=== PATIENT | male | born 1940 | race Caucasian/White ===

== ENCOUNTER 2016-09-28 10:03 | Emergency (ER) | payer OTHER, BC ==
[~2016-09-28] VITALS: Ht 175.3 cm; Wt 94.0 kg
[~2016-09-28 10:03] MED LIST: ACTUNK; ASPCH81; AVDUNK; DVNUNK; GLCPUNK; LRT5 PO; OMEG10007 PO; TRCUNK; VYTUNK
[2016-09-28 10:11] VITALS: TEMP 36.3; Ht 175.3 cm; Wt 94.0 kg
[2016-09-28 10:53] LABS: URINE APPEARANCE CLEAR (CLEAR); URINE BILIRUBIN NEG (NEG); URINE COLOR YELLOW; URINE NITRITE NEG (NEG); UROBILINOGEN NEG (NEG)
[2016-09-28 10:55] LABS: MANUAL MICROSCOPIC REQUIRED? YES; REVIEW REQ? NO
[2016-09-28 11:07] LABS: URINE BACTERIA NEG (NEG)
[2016-09-28 11:31] LABS: BASO % 0.6 %; BASO ABS # 0.05 K/uL (0-0.2); COMPLETE YES; EOS % 0.7 %; HEMATOCRIT 36.5 % (42-52); IG% 0.2 %; LYMPH % 9.3 %; LYMPH ABS # 0.76 K/uL (1.2-3.4); MEAN CELL VOLUME 89.9 fL (80-100); MEAN CORPUSCULAR HEMOGLOBIN 28.6 pg (25-34); MEAN CORPUSCULAR HGB CONC 31.8 g/dl (32-36); MEAN PLATELET VOLUME 10.3 fL (7.4-10.4); MONO % 5.3 %; NEUT % 83.9 %; PLATELET COUNT 184 K/uL (130-400); RED BLOOD COUNT 4.06 M/uL (4.7-6.1); WHITE BLOOD COUNT 8.17 K/uL (4.8-10.8)
[2016-09-28] MEDS ORDERED: CRS/10 PO (11:48)
[2016-09-28] MEDS ORDERED: CHOL400T (11:48)
[2016-09-28] MEDS ORDERED: GLIM1TAB2 PO (11:48)
[2016-09-28] MEDS ORDERED: TAMS0.4C38 PO (11:48)
[2016-09-28] MEDS ORDERED: ASPI81TA28 PO (11:48)
[2016-09-28] MEDS ORDERED: SITA100T3 PO (11:48)
[2016-09-28] MEDS ORDERED: OMEGCAP2 PO (11:48)
[2016-09-28] MEDS ORDERED: METF-841 PO (11:48)
[2016-09-28 11:57] LABS: BUN/CREATININE RATIO 18.8 (10-20); CREATININE 1.5 mg/dl (0.60-1.40); POTASSIUM 5.8 mmol/L (3.5-5.1)
--- NOTE | 2016-09-28 12:19 | EMERGENCY ROOM VISIT NOTE ---
History Report prepared by Ann: Ren Hill Under the Supervision of: Dr. Gunnar Davis M.D. First contact with patient: 10:14 Chief Complaint: UNABLE TO VOID Stated Complaint: UNABLE TO VOID History of Present Illness The patient is a 76 year old male who presents to the Emergency Room with complaints of constant inability to urinate beginning this morning. He states that he suddenly developed increased urinary frequency and urgency last night. He estimates that he was urinating every 10 minutes or so. The patient states that he went to sleep, and has not been able to urinate since waking up. He also complains of abdominal pain and distension. He states that he was able to urinate a very small amount just prior to arrival, but feels that he cannot empty his bladder. The patient has a history of similar symptoms occurring 4 years ago with an uncertain cause. Nothing has improved his symptoms. He denies any back pain, nausea, vomiting, fever, weakness, numbness, chest pain, or SOB. The patient denies any falls or trauma. He is on aspirin but denies any other blood thinners. He is on Flomax. The patient denies taking any new medications recently. Source of History: patient Onset: this morning Quality: other (inability to urinate) Timing: constant Modifying Factors (Relieving): other (none) Associated Symptoms: + abdominal pain (and distension), No SOB, No chest pain, No chills, No fevers, No nausea, No numbness, No vomiting, No weakness Review of Systems See HPI for pertinent positives & negatives. A total of 10 systems reviewed and were otherwise negative. Past Medical & Surgical Medical Problems: (1) No Known Active Medical Problems Surgical Problems: (1) Previous back surgery Old medical records were reviewed. Nurse's notes were reviewed and I agree with. Family History No pertinent family history stated. Social History Drug Use: none Housing Status: lives with family Current/Historical Medications Scheduled Aspirin (Aspirin Ec), 81 MG PO DAILY Glimepiride (Glimepiride), 1 MG PO DAILY Metformin HCl (Metformin HCl ER), 1,000 MG PO HS [place]-3 Fatty Acids (Fish Oil), 1 CAP PO DAILY Rosuvastatin Calcium (Crestor), 10 MG PO HS Sitagliptin Phosphate (Januvia), 100 MG PO DAILY Tamsulosin Hcl (Flomax), 0.4 MG PO HS Miscellaneous Medications Cholecalciferol (Vitamin D) Allergies Coded Allergies: Atorvastatin (Verified Allergy, Unknown, SKIN REACTION, 09/28/16) Physical Exam Vital Signs Date Time Temp Pulse Resp B/P Pulse Ox O2 Delivery O2 Flow Rate FiO2 09/28/16 12:58 55 18 136/74 98 09/28/16 11:41 55 18 125/69 98 Room Air 09/28/16 10:11 36.3 65 16 180/78 96 Room Air Physical Exam General: Well developed, well nourished, non-ill appearing older male in no acute distress, breathing comfortably on room air. Normal speech HEENT: Normal cephalic atraumatic. Pupils are equal round and reactive to light. Extraocular movements are intact. Oropharynx is pink with moist mucous membranes. No swelling of the mouth lips or tongue. Neck: Supple with a midline trachea. No meningeal signs or stiffness, no JVD or bruits. No Stridor. Chest: Clear to auscultation bilaterally. No wheezes or rhonchi. No increased work of breathing. Heart: regular rate and rhythm. Abdomen: Soft nontender, nondistended without rebound guarding or rigidity. Extremities: No cyanosis clubbing or edema. No calf tenderness or assymetry Spine/Back. Non tender to palpation. No CVA tenderness Skin: Good turgor without rashes. Neurologic exam: Cranial nerves two through 12 are intact. Motor and sensation are intact and symmetrical throughout. Medical Decision & Procedures Laboratory Results 09/28/16 11:15 Red Blood Count 4.06, Mean Corpuscular Volume 89.9, Mean Corpuscular Hemoglobin 28.6, Mean Corpuscular Hemoglobin Concent 31.8, Mean Platelet Volume 10.3, Neutrophils (%) (Auto) 83.9, Lymphocytes (%) (Auto) 9.3, Monocytes (%) (Auto) 5.3, Eosinophils (%) (Auto) 0.7, Basophils (%) (Auto) 0.6, Neutrophils # (Auto) 6.85, Lymphocytes # (Auto) 0.76, Monocytes # (Auto) 0.43, Eosinophils # (Auto) 0.06, Basophils # (Auto) 0.05 09/28/16 11:15 Test 09/28/16 10:31 09/28/16 11:15 Urine Color YELLOW Urine Appearance CLEAR (CLEAR) Urine pH 5.0 (4.5-7.5) Urine Specific [place] 1.020 (1.000-1.030) Urine Protein TRACE (NEG) Urine Glucose (UA) 1+ (NEG) Urine Ketones NEG (NEG) Urine Occult Blood 2+ (NEG) Urine Nitrite NEG (NEG) Urine Bilirubin NEG (NEG) Urine Urobilinogen NEG (NEG) Urine Leukocyte Esterase NEG (NEG) Urine RBC 5-10 /hpf (0-4) Urine WBC 1-5 /hpf (0-5) Urine Epithelial Cells 0-5 /lpf (0-5) Urine Bacteria NEG (NEG) White Blood Count 8.17 K/uL (4.8-10.8) Red Blood Count 4.06 M/uL (4.7-6.1) Hemoglobin 11.6 g/dL (14.0-18.0) Hematocrit 36.5 % (42-52) Mean Corpuscular Volume 89.9 fL (80-100) Mean Corpuscular Hemoglobin 28.6 pg (25-34) Mean Corpuscular Hemoglobin Concent 31.8 g/dl (32-36) Platelet Count 184 K/uL (130-400) Mean Platelet Volume 10.3 fL (7.4-10.4) Neutrophils (%) (Auto) 83.9 % Lymphocytes (%) (Auto) 9.3 % Monocytes (%) (Auto) 5.3 % Eosinophils (%) (Auto) 0.7 % Basophils (%) (Auto) 0.6 % Neutrophils # (Auto) 6.85 K/uL (1.4-6.5) Lymphocytes # (Auto) 0.76 K/uL (1.2-3.4) Monocytes # (Auto) 0.43 K/uL (0.11-0.59) Eosinophils # (Auto) 0.06 K/uL (0-0.5) Basophils # (Auto) 0.05 K/uL (0-0.2) RDW Standard Deviation 46.2 fL (36.4-46.3) RDW Coefficient of Variation 13.9 % (11.5-14.5) Immature Granulocyte % (Auto) 0.2 % Immature Granulocyte # (Auto) 0.02 K/uL (0.00-0.02) Anion Gap 7.0 mmol/L (3-11) Est Creatinine Clear Calc Drug Dose 47.4 ml/min Estimated GFR () 51.7 Estimated GFR (Non- 44.6 BUN/Creatinine Ratio 18.8 (10-20) Calcium Level 9.0 mg/dl (8.5-10.1) Laboratory studies as stated above per my review. ED Course 1018: Past medical records reviewed. The patient was evaluated in room B8, and a complete history and physical examination were performed. He had a Marks catheter placed at this time. 1030: The patient has begun feeling significant relief. 1210: Upon reevaluation, the patient is resting comfortably. I discussed the results and treatment plan with her. She verbalized agreement of the treatment plan. The patient was discharged home. Medical Decision Differentials include, but are not limited to; urinary retention, UTI, infection , cauda equina syndrome, and electrolyte or metabolic abnormality. This patient comes in as described above he's urinary retention. A bladder scan showed severe amount of urine. A Marks catheter was placed and he had over 1 liter of urine. He feels much better. He has some baseline renal insufficiency and his potassium is also mildly elevated although that's baseline. He looks well. He has no back pain or numbness or weakness or any evidence to suggest that equina syndrome. He has had this before. He was feeling better. He has nothing to suggest a UTI at this point. I will have him leave the catheter with leg bag. He is going to follow up with his doctor tomorrow afternoon and they can try to remove the Marks catheter and ensure that he urinates afterwards. He was encouraged to return if: Fever or chills, worsening of symptoms, any new problems or concerns. Impression Primary Impression: Urinary retention Scribe Attestation The scribe's documentation has been prepared under my direction and personally reviewed by me in its entirety. I confirm that the note above accurately reflects all work, treatment, procedures, and medical decision making performed by me. Departure Information Dispostion Home / Self-Care Referrals Lavinia Mcclure (PCP) Forms HOME CARE DOCUMENTATION FORM, IMPORTANT VISIT INFORMATION, WORK / SCHOOL INSTRUCTIONS Patient Instructions My [facility] Additional Instructions Rest. Drink plenty of fluids. Follow-up with your doctor (primary doctor or urologist) late tomorrow or early for catheter removal. Ensure that you can urinate afterwards before you go out of town Return to the ER if: Problems with a Marks catheter, bleeding, fever or chills, any new problems or concerns.
[2016-09-28 12:58] VITALS: BP 136/74; PULSE 55; O2SAT 98
== END 2016-09-28 12:59 | disposition home or self-care (01) ==
LOC: C.EDB 10:04
DX: R33.9 Retention of urine, unspecified (principal); Z79.82 Long term (current) use of aspirin

== ENCOUNTER → 2017-04-25 | Outpatient (CLI) | payer OTHER, BC ==
[~2017-04-25] MED LIST changes: -ACTUNK; -ASPCH81; +ASPI81TA28 PO; -AVDUNK; +CHOL400T; +CRS/10 PO; -DVNUNK; -GLCPUNK; +GLIM1TAB2 PO; -LRT5 PO; +METF-841 PO; -OMEG10007 PO; +OMEGCAP2 PO; +SITA100T3 PO; +TAMS0.4C38 PO; -TRCUNK; -VYTUNK
--- NOTE | 2017-04-25 12:33 | DIAGNOSTIC IMAGING REPORT ---
CHEST 2 VIEWS ROUTINE CLINICAL HISTORY: COUGH, SOB, EDEMA dyspnea COMPARISON STUDY: 02/18/2010 FINDINGS: Moderate cardiomegaly. Diaphragms are smooth. Lungs are clear. Multiple old rib fractures bilaterally. IMPRESSION: Moderate cardiomegaly. Otherwise negative study. The above report was generated using voice recognition software. It may contain grammatical, syntax or spelling errors. Electronically signed by: Fredo Tay M.D. 04/25/2017 12:32 PM Dictated Date/Time: 04/25/2017 12:29 PM
== END | disposition home or self-care (01) ==
LOC: C.RAD1850 12:20
PROVIDERS: ATTEND Nurse Practitioner Family
DX: R06.02 Shortness of breath (principal); R05 Cough; E11.9 Type 2 diabetes mellitus without complications; R60.9 Edema, unspecified; I51.7 Cardiomegaly

== ENCOUNTER → 2017-06-17 | Outpatient (CLI) | payer OTHER, BC ==
[~2017-06-17] MED LIST changes: +METF750T PO; +OPTIRAY 320 IV PRN
[2017-06-17 11:33] LABS: BLOOD UREA NITROGEN 15 mg/dl (7-18); CALCIUM 9.5 mg/dl (8.5-10.1); CARBON DIOXIDE 27 mmol/L (21-32); CREATININE 1.27 mg/dl (0.60-1.40); GLUCOSE 167 mg/dl (70-99); POTASSIUM 3.4 mmol/L (3.5-5.1); SODIUM 138 mmol/L (136-145)
[2017-06-17 12:30] LABS: BASO % 0.5 %; BASO ABS # 0.03 K/uL (0-0.2); EOS % 1.4 %; EOS ABS # 0.09 K/uL (0-0.5); HEMOGLOBIN 11.2 g/dL (14.0-18.0); IG# 0.01 K/uL (0.00-0.02); LYMPH % 18.5 %; LYMPH ABS # 1.22 K/uL (1.2-3.4); MEAN CELL VOLUME 86.6 fL (80-100); MEAN CORPUSCULAR HEMOGLOBIN 27.7 pg (25-34); MEAN PLATELET VOLUME 9.6 fL (7.4-10.4); MONO ABS # 0.46 K/uL (0.11-0.59); NEUT % 72.4 %; PLATELET COUNT 324 K/uL (130-400); RED CELL DISTRIBUTION WIDTH CV 14.6 % (11.5-14.5); WHITE BLOOD COUNT 6.61 K/uL (4.8-10.8)
--- NOTE | 2017-06-17 13:33 | DIAGNOSTIC IMAGING REPORT ---
ABD/PELVIS IV AND ORAL CONT CT DOSE: HISTORY: Mass RECTAL MASS,PT COMING FROM PROCEDURE [place] [facility] TECHNIQUE: Multiaxial CT images of the abdomen and pelvis were performed following the use of intravenous and oral contrast. A dose lowering technique was utilized adhering to the principles of ALARA. COMPARISON STUDY: None. FINDINGS: Lung bases are clear. Small hiatal hernia. Liver spleen and pancreas enhance uniformly. No evidence for gallbladder distention. Mild cortical scarring of the kidneys bilaterally. Several renal peripelvic cysts. No evidence for hydronephrosis. The adrenal glands are normal. Nonobstructive bowel pattern. Chronic proximal to mid sigmoid diverticulosis. No evidence for acute diverticulitis. The prostate is enlarged. There appears to be a low right central rectal mass measuring 3.7 x 2.1 cm. No evidence for extrinsic invasion. Several small perirectal nodes none of which exceed 4 mm maximum dimension. No significant inguinal adenopathy. The osseous structures show moderate degenerative change with no evidence for a lytic or blastic process. IMPRESSION: 1. Right central rectal mass measuring 2.7 x 2.1 cm maximum dimension. 2. No evidence for extraluminal extension. 3. No evidence for metastatic disease based on this exam. 4. Incidental findings as noted. The above report was generated using voice recognition software. It may contain grammatical, syntax or spelling errors. Electronically signed by: Fredo Tay M.D. 06/17/2017 1:32 PM Dictated Date/Time: 06/17/2017 1:26 PM
--- NOTE | 2017-06-17 13:37 | DIAGNOSTIC IMAGING REPORT ---
CHEST CT WITH CONTRAST CT DOSE: 1175.44 mGy.cm HISTORY: Reported rectal mass. RECTAL MASS TECHNIQUE: Multiaxial CT images of the chest were performed following the intravenous administration of contrast. 94 ml Optiray 320 administered. A dose lowering technique was utilized adhering to the principles of ALARA. COMPARISON: CT abdomen and pelvis of same day. FINDINGS: Exophytic portion of the inferior left thyroid versus thyroid nodule measures 12 mm as seen on image 78 series 6. No definite pathologically enlarged lymph nodes of the chest identified. Mild to moderate sized pericardial effusion measures 1.8 cm posteriorly adjacent to the left ventricle. Coronary arterial disease. Mild to moderate multichamber cardiac enlargement. Thoracic aorta is normal in both course and caliber without aneurysm or dissection. The pulmonary arterial tree is not well opacified, however appears unremarkable. There is no pneumothorax, pleural effusion, focal airspace consolidation or overt pulmonary edema. Mild subsegmental dependent bibasilar groundglass opacities suggest atelectasis. No suspicious pulmonary nodules or masses identified to suggest metastasis. The central airways appear patent. Mild gaseous distention of the upper and mid portions of the thoracic esophagus. Small sliding-type hiatal hernia. No acute abnormality of the imaged upper abdomen. Soft tissues are unremarkable. The bones appear mildly demineralized. Degenerative changes are seen within the shoulders and spine. No suspicious lytic or blastic bony lesions identified. Remote left-sided rib fractures. IMPRESSION: 1. No acute intrathoracic abnormality identified. No evidence of thoracic metastatic disease. 2. No pathologically enlarged lymph nodes or suspicious pulmonary nodules identified. 3. Cardiomegaly with mild to moderate sized pericardial effusion. 4. Small sliding type hiatal hernia. Electronically signed by: Tarik Becerra M.D. 06/17/2017 1:36 PM Dictated Date/Time: 06/17/2017 1:29 PM
== END | disposition home or self-care (01) ==
LOC: C.CTS 10:15
PROVIDERS: ATTEND Internal Medicine Gastroenterology
DX: K62.89 Other specified diseases of anus and rectum (principal); I51.7 Cardiomegaly; I31.3 Pericardial effusion (noninflammatory); K44.9 Diaphragmatic hernia without obstruction or gangrene

== ENCOUNTER 2017-06-21 09:50 | Emergency (ER) | payer OTHER, BC ==
[~2017-06-21] VITALS: Ht 175.3 cm; Wt 98.9 kg
[~2017-06-21 09:50] MED LIST changes: -METF750T PO; -OPTIRAY 320 IV PRN
[2017-06-21 09:55] VITALS: TEMP 36.4; Ht 175.3 cm; Wt 98.9 kg
[2017-06-21] MEDS ORDERED: METF750T PO (10:52)
--- NOTE | 2017-06-21 11:41 | EMERGENCY ROOM VISIT NOTE ---
History Report prepared by Ann: Ren Hill Under the Supervision of: Dr. Gunnar Davis M.D. First contact with patient: 10:00 Chief Complaint: UNABLE TO VOID Stated Complaint: BLADDER BLOCKAGE History of Present Illness The patient is a 77 year old male who presents to the Emergency Room with complaints of constant inability to urine beginning seven hours ago. He has a history of urinary retention thought to be related to prostate problems. His symptoms were previously improved with placement of a Marks catheter. The patient currently complains of abdominal pain. He has a colonoscopy last week and was found to have multiple tumors. He is scheduled to see colorectal surgery later today. The patient denies back pain, numbness, weakness, chills, or fever. He notes that he has had increased fatigue for the past several months. Source of History: patient Onset: Seven hours ago Quality: other (inability to urinate) Timing: constant Modifying Factors (Relieving): other (Placement of Marks catheter) Associated Symptoms: + abdominal pain, + fatigue, No fevers, No chills, No back pain, No weakness, No numbness Review of Systems See HPI for pertinent positives & negatives. A total of 10 systems reviewed and were otherwise negative. Past Medical & Surgical Medical Problems: (1) No Known Active Medical Problems Surgical Problems: (1) Previous back surgery Old medical records were reviewed. Nurse's notes were reviewed and I agree with. Family History No pertinent family history stated. Social History Smoking Status: Never Smoker Drug Use: none Housing Status: lives with family Current/Historical Medications Scheduled Glimepiride (Glimepiride), 1 MG PO DAILY Metformin Hcl (Glucophage Er), 750 MG PO HS Rosuvastatin Calcium (Crestor), 10 MG PO HS Tamsulosin Hcl (Flomax), 0.4 MG PO HS Miscellaneous Medications Cholecalciferol (Vitamin D) Allergies Coded Allergies: Atorvastatin (Verified Allergy, Unknown, SKIN REACTION, 06/21/17) Physical Exam Vital Signs Date Time Temp Pulse Resp B/P (MAP) Pulse Ox O2 Delivery O2 Flow Rate FiO2 06/21/17 12:50 67 16 162/82 97 Room Air 06/21/17 11:55 65 23 166/92 100 Room Air 06/21/17 09:55 36.4 82 20 99 Room Air Physical Exam General: Uncomfortable appearing older male in no acute distress. Complaining of inability to void. HEENT: Normal cephalic atraumatic. Pupils are equal round and reactive to light. Extraocular movements are intact. Oropharynx is pink with moist mucous membranes. No swelling of the mouth lips or tongue. Neck: Supple with a midline trachea. No meningeal signs or stiffness, no JVD or bruits. No Stridor. Chest: Clear to auscultation bilaterally. No wheezes or rhonchi. No increased work of breathing. Heart: regular rate and rhythm. Abdomen: Soft nontender, nondistended without rebound guarding or rigidity. Extremities: No cyanosis clubbing or edema. No calf tenderness or assymetry. Spine/Back. Non tender to palpation. No CVA tenderness Skin: Good turgor without rashes. Neurologic exam: Cranial nerves two through 12 are intact. Motor and sensation are intact and symmetrical throughout. Normal motor and sensation of legs. No numbness of the buttocks or legs. Medical Decision & Procedures Laboratory Results Test 06/21/17 10:30 Urine Color YELLOW Urine Appearance CLEAR (CLEAR) Urine pH 5.0 (4.5-7.5) Urine Specific [place] 1.016 (1.000-1.030) Urine Protein 3+ (NEG) Urine Glucose (UA) 1+ (NEG) Urine Ketones NEG (NEG) Urine Occult Blood 1+ (NEG) Urine Nitrite NEG (NEG) Urine Bilirubin NEG (NEG) Urine Urobilinogen NEG (NEG) Urine Leukocyte Esterase NEG (NEG) Urine WBC (Auto) 1-5 /hpf (0-5) Urine RBC (Auto) 0-4 /hpf (0-4) Urine Hyaline Casts (Auto) 1-5 /lpf (0-5) Urine Epithelial Cells (Auto) 20-30 /lpf (0-5) Urine Bacteria (Auto) NEG (NEG) Laboratory studies as stated above per my review. ED Course 1012: Past medical records reviewed. The patient was evaluated in room A2, and a complete history and physical examination were performed. 1050: The patient drained over 1000 cc of urine. He would like to have his enema here, and then be sent to his colorectal appointment today. 1235: Upon reevaluation, the patient is resting comfortably. His enema was successful. I discussed the results and treatment plan with him. He verbalized agreement of the treatment plan. He will wait for his ride in the next hour. The patient was discharged home. Medical Decision Differentials include, but are not limited to; urinary retention, infection, and cauda equina. This patient comes in as described above. He was placed in room A2. He's had difficulty urinating. This occurred since last night. He was seen back in September for similar symptom. He has no neurologic deficits on exam and nothing to suggest cauda equina syndrome. He's had no recent illness or fever or chills. A Marks catheter was placed and he had about 1400 mL and felt better. His urinalysis does not suggest a UTI with a culture pending. He has a recently discovered rectal mass and is scheduled to see a [facility] colorectal surgeon locally this afternoon. He does not want to miss the appointment. He was supposed to do enemas prior to that so they could look. He did enemas while he was in the ER and is feeling better and we did convert it into a leg bag. He is to follow-up with his regular doctor next 1-2 days for catheter removal and was given a follow-up with his colorectal surgeon after being discharged from the ER. He should return if: fever or chills, numbness or weakness, worsening of symptoms, any new problems concerns. He is happy the plan and discharged to home. Impression Primary Impression: Urinary retention Scribe Attestation The scribe's documentation has been prepared under my direction and personally reviewed by me in its entirety. I confirm that the note above accurately reflects all work, treatment, procedures, and medical decision making performed by me. Departure Information Dispostion Home / Self-Care Referrals Lavinia Mcclure (PCP) Forms HOME CARE DOCUMENTATION FORM, IMPORTANT VISIT INFORMATION, WORK / SCHOOL INSTRUCTIONS Patient Instructions My [facility] Additional Instructions Rest. Keep your follow-up today with your surgeon Follow-up with your doctor in 1-2 days for catheter removal Return to the ER if: Worsening symptoms, numbness or weakness, fever or chills, any new problems or concerns
[2017-06-21 12:50] VITALS: BP 162/82; PULSE 67; O2SAT 97
== END 2017-06-21 13:20 | disposition home or self-care (01) ==
LOC: C.EDB 09:52 → C.EDA 13:20
DX: R33.9 Retention of urine, unspecified (principal); R10.9 Unspecified abdominal pain; K62.89 Other specified diseases of anus and rectum; R53.83 Other fatigue; Z79.84 Long term (current) use of oral hypoglycemic drugs

== ENCOUNTER → 2017-06-23 | Outpatient (CLI) | payer OTHER, BC ==
[~2017-06-23] MED LIST changes: -ASPI81TA28 PO; +GADAVIST IV PRN; -METF-841 PO; +METF750T PO; -OMEGCAP2 PO; -SITA100T3 PO
--- NOTE | 2017-06-23 11:19 | DIAGNOSTIC IMAGING REPORT ---
MRI OF THE PELVIS COMBO CLINICAL HISTORY: Rectal cancer. COMPARISON STUDY: Abdominal CT dated 06/17/2017. TECHNIQUE: MRI of the pelvis is performed utilizing various T1 and T2 weighted sequences in the axial, sagittal, and coronal planes. Contrast-enhanced sequences are acquired following the IV administration of 9.2 cc of Gadavist. The examination is degraded by large body habitus and motion artifact. FINDINGS: There is a lobulated mass lesion again seen in the inferior rectum. This is located along the posterior wall of the rectum and is slightly eccentric to the right. This measures 4.0 x 1.7 x 4.3 cm in maximum dimension. There is no evidence of extension beyond the rectal mucosa. There is no associated obstruction. An 8 mm lymph node is seen in the left presacral space on image #9. A 10 mm high right perirectal lymph node is seen on image #4. Diverticula are noted involving the sigmoid colon. There is no MRI evidence of acute diverticulitis. The prostate gland is markedly enlarged and heterogeneous with evidence of median lobe hypertrophy. The bladder wall is thickened and trabeculated consistent with chronic outlet obstruction. The seminal vesicles are normal as imaged. No pelvic sidewall or inguinal lymphadenopathy is seen. There is metallic susceptibility artifact seen involving the sigmoid colon in the left ventral pelvis, likely related to an intraluminal foreign body. There is a fat-containing left inguinal hernia. The regional bony structures demonstrate normal marrow signal intensity. There is mild generalized atrophy of the regional musculature. Inflammatory change with small pockets of subcutaneous fluid are identified in inferior right buttock. This is best seen on axial postcontrast image #32 of 34. IMPRESSION: 1. There is a 4.3 cm lobulated rectal mass lesion as described above. 2. There is no evidence of perirectal extension. 3. There are mildly enlarged and pathologically indeterminant left presacral and right perirectal lymph nodes as above. 4. Prostatomegaly with evidence of chronic bladder outlet obstruction. 5. Inflammatory process with small pockets of subcutaneous fluid is seen within the inferior aspect of the medial right buttock. Correlate clinically for evidence of cellulitis/small abscess. 6. A metallic foreign body is noted in the sigmoid colon. 7. Sigmoid diverticulosis. Dictated: 06/23/2017 10:36 AM Transcribed: 06/23/2017 11:18 AM [facility] Electronically signed by: Richard Fields M.D. 06/23/2017 11:25 AM Dictated Date/Time: 06/23/2017 10:36 AM
== END | disposition home or self-care (01) ==
LOC: C.MRIBC 09:07
PROVIDERS: ATTEND Colon & Rectal Surgery
DX: K62.89 Other specified diseases of anus and rectum (principal); N40.1 Benign prostatic hyperplasia with lower urinary tract symptoms; L98.8 Other specified disorders of the skin and subcutaneous tissue; T18.4XXA Foreign body in colon, initial encounter; X58.XXXA Exposure to other specified factors, initial encounter; K57.30 Diverticulosis of large intestine without perforation or abscess without bleeding; C20 Malignant neoplasm of rectum

== ENCOUNTER 2017-08-18 10:12 | Inpatient (IN) | payer OTHER, BC ==
[~2017-08-18] VITALS: Ht 175.3 cm; Wt 95.0 kg
[~2017-08-18 10:12] MED LIST changes: +CHOL1000 PO; -CHOL400T; +CYAN10005 PO; +DILT-113 PO; -GADAVIST IV PRN; +IRON1CAP2 PO; +XLD/500 PO; +[UNRECOGNIZED DRUG - MIXTURE] PO
[2017-08-18] MEDS ORDERED: SODIUM CHLORIDE 0.9% 500ML 500 ML IV STA (10:29)
[2017-08-18 11:05] LABS: EOS % 0.5 %; EOS ABS # 0.02 K/uL (0-0.5); HEMATOCRIT 30.1 % (42-52); HEMOGLOBIN 9.8 g/dL (14.0-18.0); IG# 0.01 K/uL (0.00-0.02); LYMPH % 5.2 %; LYMPH ABS # 0.23 K/uL (1.2-3.4); MEAN CORPUSCULAR HEMOGLOBIN 28.3 pg (25-34); MEAN CORPUSCULAR HGB CONC 32.6 g/dl (32-36); MEAN PLATELET VOLUME 8.6 fL (7.4-10.4); MONO % 12.9 %; MONO ABS # 0.57 K/uL (0.11-0.59); NEUT % 81.2 %; PLATELET COUNT 186 K/uL (130-400); RED CELL DISTRIBUTION WIDTH CV 19.2 % (11.5-14.5); RED CELL DISTRIBUTION WIDTH SD 52.9 fL (36.4-46.3); WHITE BLOOD COUNT 4.43 K/uL (4.8-10.8)
[2017-08-18 11:06] LABS: INR 1.1 (0.9-1.1); PTT PATIENT 24.6 SECONDS (21.0-31.0)
[2017-08-18 11:18] LABS: ALBUMIN 2.9 gm/dl (3.4-5.0); CALCIUM 8.4 mg/dl (8.5-10.1); CREATININE 1.54 mg/dl (0.60-1.40); POTASSIUM 3.8 mmol/L (3.5-5.1)
[2017-08-18 11:20] LABS: TOTAL PROTEIN 6.5 gm/dl (6.4-8.2)
--- NOTE | 2017-08-18 11:52 | DIAGNOSTIC IMAGING REPORT ---
CT SCAN OF THE BRAIN WITHOUT IV CONTRAST CLINICAL HISTORY: Fall. COMPARISON STUDY: No priors. TECHNIQUE: Unenhanced axial CT scan of the brain is performed from the vertex to the skull base. A dose lowering technique was utilized adhering to the principles of ALARA. CT DOSE: 729.78 mGycm FINDINGS: Brain parenchyma: There are age-related involutional changes noting mild subcortical and periventricular microangiopathic change. There is no hemorrhage, mass effect, or evidence of acute territorial ischemia by CT criteria. Marsh-white matter is preserved. No extra-axial fluid collection is seen. Ventricles, sulci, cisterns: Prominent secondary to involutional change. Intracranial vasculature: There is atherosclerotic calcification of the cavernous carotid and vertebral arteries. Calvarium: The skeletal structures are osteopenic. No depressed calvarial fracture is seen. Sinuses and mastoids: Mild mucosal thickening is seen in the maxillary antra. Trace mucosal thickening is noted in the ethmoid sinuses. The remaining visualized paranasal sinuses are clear. The mastoid air cells are well pneumatized. Orbits: The bony orbits are grossly intact. There are bilateral ocular lens implants. IMPRESSION: There is no hemorrhage, mass effect, or evidence of acute territorial ischemia by CT criteria. Electronically signed by: Richard Fields M.D. 08/18/2017 11:51 AM Dictated Date/Time: 08/18/2017 11:49 AM
--- NOTE | 2017-08-18 11:58 | DIAGNOSTIC IMAGING REPORT ---
CT OF THE CERVICAL SPINE CLINICAL HISTORY: Neck pain status post trauma COMPARISON STUDY: No previous studies for comparison. CT DOSE: 466.95 mGycm TECHNIQUE: CT scan of the cervical spine was performed from the skull base to the thoracic inlet. Images are reviewed in the axial, sagittal, and coronal planes. IV contrast was not administered for this examination. A dose lowering technique was utilized adhering to the principles of ALARA. FINDINGS: The visualized portions of the lung apices reveal no evidence of pneumothorax. There is a nondisplaced fracture of the left anterior C1 arch. No additional fractures are visualized. There are no traumatic subluxations. 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 There are multilevel degenerative changes present.. IMPRESSION: Acute nondisplaced fracture of the left anterior C1 arch. Electronically signed by: Francisco Schulz M.D. 08/18/2017 11:57 AM Dictated Date/Time: 08/18/2017 11:49 AM
--- NOTE | 2017-08-18 11:59 | DIAGNOSTIC IMAGING REPORT ---
CT SCAN OF THE FACIAL BONES WITHOUT IV CONTRAST CLINICAL HISTORY: Fall. COMPARISON STUDY: CT of the brain performed concurrently on 08/18/2017. TECHNIQUE: High-resolution CT scan of the facial bones is performed. Images are reviewed in the axial, sagittal, and coronal planes. IV contrast was not administered for this examination. A dose lowering technique was utilized adhering to the principles of ALARA. CT DOSE: 608.20 mGycm FINDINGS: The skeletal structures are osteopenic. There are minimally distracted fractures involving the tips of the nasal bones with overlying soft tissue edema. The bony nasal septum appears intact noting rightward deviation. No additional facial bone fracture is seen. The bony orbits are intact and the orbital contents are within normal limits noting bilateral ocular lens implants. The zygomatic arches and pterygoid plates are preserved. The maxilla and mandible are intact. There are no layering blood products within the paranasal sinuses. Mild mucosal thickening is seen in the maxillary antra and trace mucosal thickening is seen in the ethmoid sinuses. The remaining paranasal sinuses and mastoid air cells are clear. The visualized calvarium appears intact. There is a nondistracted fracture involving the left anterior ring and lateral masses of C1, best seen on axial image #160. Partially imaged brain parenchyma is within normal limits noting age-related involutional change. IMPRESSION: 1. There is a nondistracted fracture involving the left anterior ring and lateral mass of C1. 2. There are fractures involving the tips of the nasal bones with overlying soft tissue edema. 3. No additional facial bone fracture is seen. The bony orbits are intact. Electronically signed by: Richard Fields M.D. 08/18/2017 11:58 AM Dictated Date/Time: 08/18/2017 11:51 AM
--- NOTE | 2017-08-18 12:24 | DIAGNOSTIC IMAGING REPORT ---
SINGLE VIEW CHEST CLINICAL HISTORY: Fall. FINDINGS: An AP, portable, upright chest radiograph is compared to study dated 04/25/2017 and correlated with chest CT dated 06/17/2017. The examination is degraded by portable technique and patient rotation. The heart is enlarged and there is atherosclerotic calcification of the thoracic aorta. The pulmonary vasculature is noncongested. Chronic interstitial thickening is similar to previous. No airspace consolidation or large pleural effusion is identified. No pneumothorax is seen. The skeletal structures are osteopenic. There are numerous healed bilateral rib fractures. IMPRESSION: Cardiomegaly with no acute cardiopulmonary abnormality. Electronically signed by: Richard Fields M.D. 08/18/2017 12:22 PM Dictated Date/Time: 08/18/2017 12:21 PM
--- NOTE | 2017-08-18 12:25 | DIAGNOSTIC IMAGING REPORT ---
L-SPINE MIN 4 VIEWS ROUTINE HISTORY: Trauma. Pain. eval for fx COMPARISON: None. FINDINGS: There is no fracture. No subluxation. Mild degenerative disc changes throughout. Anterior reactive osteophyte formation at T12-L1 degenerative basis. No evidence for subluxation. IMPRESSION: Mild/moderate degenerative change. No acute process. The above report was generated using voice recognition software. It may contain grammatical, syntax or spelling errors. Electronically signed by: Fredo Tay M.D. 08/18/2017 12:23 PM Dictated Date/Time: 08/18/2017 12:22 PM
--- NOTE | 2017-08-18 12:26 | DIAGNOSTIC IMAGING REPORT ---
SINGLE VIEW PELVIS CLINICAL HISTORY: Fall. FINDINGS: 2 AP pelvic radiographs are correlated with pelvic CT dated 06/17/2017. The skeletal structures are osteopenic. There is no radiographic evidence of fracture involving the hips or bony pelvis. Mild to moderate arthritic change and joint space narrowing is seen in the hips. Sclerotic change is present in the sacroiliac joints. Enthesophytes arise from the anterior superior iliac spine bilaterally. Phleboliths are observed in the left hemipelvis. Round hyperdensities in the left lower quadrant likely represent retained contrast within colonic diverticula. IMPRESSION: Osteopenia with no radiographic evidence of fracture involving the hips or bony pelvis. Electronically signed by: Richard Fields M.D. 08/18/2017 12:24 PM Dictated Date/Time: 08/18/2017 12:23 PM
[2017-08-18] MEDS ORDERED: POLYETHYLENE (MIRALAX) 17 GM PACK PO PRN (13:45)
[2017-08-18] MEDS ORDERED: DEXTROSE 50% 50 ML SYR IV PRN (13:45)
[2017-08-18] MEDS ORDERED: MAGNESIUM HYDROXIDE SUSP 30 ML UDC PO PRN (13:45)
[2017-08-18] MEDS ORDERED: ONDANSETRON INJ 2 MG/ML 2 ML VIAL IV PRN (13:45)
[2017-08-18] MEDS ORDERED: GLUCAGON FOR INJ 1 MG VIAL SQ PRN (13:45)
[2017-08-18] MEDS ORDERED: CAPECITABINE PO SCH (13:45)
[2017-08-18] MEDS ORDERED: GLUCOSE 40% GEL 15 GM TUBE PO PRN (13:45)
[2017-08-18] MEDS ORDERED: GLUCOSE 10 TABS/TUBE PO PRN (13:45)
[2017-08-18] MEDS ORDERED: ALUMINUM/MAGNESIUM/SIMETH (MAALOX MAX) 30 ML UDC PO PRN (13:45)
--- NOTE | 2017-08-18 14:18 | History and Physical ---
History & Physical Date & Time of Service: Aug 18, 2017 at 13:59 Chief Complaint: Dehydrated Primary Care Physician: Lavinia Mcclure History of Present Illness Source: patient, clinic records, hospital records, friend (at bedside) This is a 77 y/o male with a history of rectal cancer, HTN, HLD, DM II, CKD stage III and BPH who presented to the ED on 08/18 with syncope and diarrhea. The patient was just diagnosed rectal cancer a few months ago after presenting with rectal bleeding. He is currently being treated with oral chemo and radiation. He was initially tolerating the radiation well, but he states that in the last week he has had trouble with stool incontinence and intermittent diarrhea. He denies any recent hematochezia or melena. He has been feeling increasingly weak and fatigued. Around 3 am this morning, the patient had a syncopal episode. He is unsure if he had preceding dizziness or lightheadedness. He does not think he tripped. He thinks he may have had a brief loss of consciousness. He did fall face forward onto the floor, causing his nose to bleed. He denies any facial or neck pain but does have a mild 2/10 pain in his right hip. The patient denies fevers, chills, sweats, chest pain, palpitations, claudication, cough, wheezing, shortness of breath, nausea, vomiting, abdominal pain, dysuria, hematuria, urinary retention, paralysis, focal motor weakness, numbness and tingling. Past Medical/Surgical History Medical Problems: (1) Diarrhea (2) Rectal cancer (3) Syncope and collapse (4) Urinary retention (5) Urinary retention Surgical Problems: (1) Previous back surgery HTN HLD DM II CKD stage III BPH Social History Smoking Status: Never Smoker Smokeless Tobacco Use: No Alcohol Use: none Drug Use: none Marital Status: single Housing status: lives alone Occupational Status: retired Allergies Coded Allergies: Atorvastatin (Verified Allergy, Unknown, SKIN REACTION, 06/21/17) Home Medications Scheduled Capecitabine (Xeloda), 1,800 MG PO Q12H Cholecalciferol (Vitamin D3), 2 TAB PO QAM Cyanocobalamin (Vitamin B-12), 2,000 MCG PO QAM Diltiazem Hcl Ext Rel (Tiazac), 180 MG PO QAM Glimepiride (Glimepiride), 1 MG PO QAM Iron Combinations (Iron Complex), 65 MG PO QAM Metformin Hcl (Glucophage Er), 750 MG PO HS Rosuvastatin Calcium (Crestor), 10 MG PO HS Tamsulosin Hcl (Flomax), 0.4 MG PO HS [glimiperide-piog], 1 TAB PO QAM Review of Systems Constitutional: +Weak, fatigued. No fever, No chills, No sweats Eyes: No worsening of vision, No eye pain, No diplopia ENT: No hearing loss, No nasal symptoms, No trouble swallowing Respiratory: No cough, No wheezing, No shortness of breath Cardiovascular: No chest pain, No claudication, No palpitations Abdomen/GI: +Diarrhea, stool incontinence. No pain, No nausea, No vomiting Musculoskeletal: No joint pain, No muscle pain, No swelling Genitourinary - Male: No dysuria, No urinary retention, No hematuria Neurologic: No paralysis, No weakness, No numbness/tingling Integumentary: No rash, No itch, No color change Physical Exam Vital Signs Date Time Temp Pulse Resp B/P (MAP) Pulse Ox O2 Delivery O2 Flow Rate FiO2 08/18/17 13:52 70 16 152/78 94 Room Air 08/18/17 13:08 78 08/18/17 12:25 93 23 138/79 97 Room Air 08/18/17 11:26 82 16 148/76 75 152/68 08/18/17 10:21 36.6 81 16 159/82 97 Room Air 08/18/17 10:16 81 General appearance: +Obese. Well-developed, well-nourished, no apparent distress Head: +Abrasion right forehead. Normocephalic Eyes: Normal inspection, PERRL, EOMI ENT: +Erythema, edema over nasal bridge. Dried blood. Normal ENT inspection, hearing grossly normal, pharynx normal Neck: +Cervical collar in place, unable to examine neck Respiratory/Chest: Lungs clear to auscultation, normal breath sounds, no respiratory distress Cardiovascular: Regular rate & rhythm, no gallop, no murmur Abdomen/GI: Normal bowel sounds, non-tender, soft Extremities/Musculoskeletal: Normal inspection, no calf tenderness, no pedal edema Neurological/Psych: Alert, normal mood/affect, oriented x 3 Skin: Normal color, warm/dry, no rash Diagnostics Laboratory Results Results Past 24 Hours Test 08/18/17 10:40 08/18/17 10:50 08/18/17 13:45 Range/Units White Blood Count 4.43 4.8-10.8 K/uL Red Blood Count 3.46 4.7-6.1 M/uL Hemoglobin 9.8 14.0-18.0 g/dL Hematocrit 30.1 42-52 % Mean Corpuscular Volume 87.0 80-100 fL Mean Corpuscular Hemoglobin 28.3 25-34 pg Mean Corpuscular Hemoglobin Concent 32.6 32-36 g/dl Platelet Count 186 130-400 K/uL Mean Platelet Volume 8.6 7.4-10.4 fL Neutrophils (%) (Auto) 81.2 % Lymphocytes (%) (Auto) 5.2 % Monocytes (%) (Auto) 12.9 % Eosinophils (%) (Auto) 0.5 % Basophils (%) (Auto) 0.0 % Neutrophils # (Auto) 3.60 1.4-6.5 K/uL Lymphocytes # (Auto) 0.23 1.2-3.4 K/uL Monocytes # (Auto) 0.57 0.11-0.59 K/uL Eosinophils # (Auto) 0.02 0-0.5 K/uL Basophils # (Auto) 0.00 0-0.2 K/uL RDW Standard Deviation 52.9 36.4-46.3 fL RDW Coefficient of Variation 19.2 11.5-14.5 % Immature Granulocyte % (Auto) 0.2 % Immature Granulocyte # (Auto) 0.01 0.00-0.02 K/uL Prothrombin Time 11.7 9.0-12.0 SECONDS Prothromb Time International Ratio 1.1 0.9-1.1 Activated Partial Thromboplast Time 24.6 21.0-31.0 SECONDS Partial Thromboplastin Ratio 0.9 Sodium Level 134 136-145 mmol/L Potassium Level 3.8 3.5-5.1 mmol/L Chloride Level 101 98-107 mmol/L Carbon Dioxide Level 26 21-32 mmol/L Anion Gap 7.0 3-11 mmol/L Blood Urea Nitrogen 24 7-18 mg/dl Creatinine 1.54 0.60-1.40 mg/dl Est Creatinine Clear Calc Drug Dose 45.9 ml/min Estimated GFR () 49.7 Estimated GFR (Non- 42.9 BUN/Creatinine Ratio 15.3 10-20 Random Glucose 208 70-99 mg/dl Calcium Level 8.4 8.5-10.1 mg/dl Magnesium Level 1.9 1.8-2.4 mg/dl Total Bilirubin 0.6 0.2-1 mg/dl Direct Bilirubin 0.2 0-0.2 mg/dl Aspartate Amino Transf (AST/SGOT) 15 15-37 U/L Alanine Aminotransferase (ALT/SGPT) 18 12-78 U/L Alkaline Phosphatase 65 45-117 U/L Total Protein 6.5 6.4-8.2 gm/dl Albumin 2.9 3.4-5.0 gm/dl Bedside Troponin I < 0.030 0-0.045 ng/ml Microbiology Results 08/18/17 C.difficile Toxin B Gene (PCR) - Final, Complete No C. difficile toxin B gene detected Diagnostic Radiology Reviewed the following studies and agree with interpretation as follows: CT SCAN OF THE FACIAL BONES WITHOUT IV CONTRAST CLINICAL HISTORY: Fall. COMPARISON STUDY: CT of the brain performed concurrently on 08/18/2017. TECHNIQUE: High-resolution CT scan of the facial bones is performed. Images are reviewed in the axial, sagittal, and coronal planes. IV contrast was not administered for this examination. A dose lowering technique was utilized adhering to the principles of ALARA. CT DOSE: 608.20 mGycm FINDINGS: The skeletal structures are osteopenic. There are minimally distracted fractures involving the tips of the nasal bones with overlying soft tissue edema. The bony nasal septum appears intact noting rightward deviation. No additional facial bone fracture is seen. The bony orbits are intact and the orbital contents are within normal limits noting bilateral ocular lens implants. The zygomatic arches and pterygoid plates are preserved. The maxilla and mandible are intact. There are no layering blood products within the paranasal sinuses. Mild mucosal thickening is seen in the maxillary antra and trace mucosal thickening is seen in the ethmoid sinuses. The remaining paranasal sinuses and mastoid air cells are clear. The visualized calvarium appears intact. There is a nondistracted fracture involving the left anterior ring and lateral masses of C1, best seen on axial image #160. Partially imaged brain parenchyma is within normal limits noting age-related involutional change. IMPRESSION: 1. There is a nondistracted fracture involving the left anterior ring and lateral mass of C1. 2. There are fractures involving the tips of the nasal bones with overlying soft tissue edema. 3. No additional facial bone fracture is seen. The bony orbits are intact. CT SCAN OF THE BRAIN WITHOUT IV CONTRAST CLINICAL HISTORY: Fall. COMPARISON STUDY: No priors. TECHNIQUE: Unenhanced axial CT scan of the brain is performed from the vertex to the skull base. A dose lowering technique was utilized adhering to the principles of ALARA. CT DOSE: 729.78 mGycm FINDINGS: Brain parenchyma: There are age-related involutional changes noting mild subcortical and periventricular microangiopathic change. There is no hemorrhage, mass effect, or evidence of acute territorial ischemia by CT criteria. Marsh-white matter is preserved. No extra-axial fluid collection is seen. Ventricles, sulci, cisterns: Prominent secondary to involutional change. Intracranial vasculature: There is atherosclerotic calcification of the cavernous carotid and vertebral arteries. Calvarium: The skeletal structures are osteopenic. No depressed calvarial fracture is seen. Sinuses and mastoids: Mild mucosal thickening is seen in the maxillary antra. Trace mucosal thickening is noted in the ethmoid sinuses. The remaining visualized paranasal sinuses are clear. The mastoid air cells are well pneumatized. Orbits: The bony orbits are grossly intact. There are bilateral ocular lens implants. IMPRESSION: There is no hemorrhage, mass effect, or evidence of acute territorial ischemia by CT criteria. SINGLE VIEW CHEST CLINICAL HISTORY: Fall. FINDINGS: An AP, portable, upright chest radiograph is compared to study dated 04/25/2017 and correlated with chest CT dated 06/17/2017. The examination is degraded by portable technique and patient rotation. The heart is enlarged and there is atherosclerotic calcification of the thoracic aorta. The pulmonary vasculature is noncongested. Chronic interstitial thickening is similar to previous. No airspace consolidation or large pleural effusion is identified. No pneumothorax is seen. The skeletal structures are osteopenic. There are numerous healed bilateral rib fractures. IMPRESSION: Cardiomegaly with no acute cardiopulmonary abnormality. CT OF THE CERVICAL SPINE CLINICAL HISTORY: Neck pain status post trauma COMPARISON STUDY: No previous studies for comparison. CT DOSE: 466.95 mGycm TECHNIQUE: CT scan of the cervical spine was performed from the skull base to the thoracic inlet. Images are reviewed in the axial, sagittal, and coronal planes. IV contrast was not administered for this examination. A dose lowering technique was utilized adhering to the principles of ALARA. FINDINGS: The visualized portions of the lung apices reveal no evidence of pneumothorax. There is a nondisplaced fracture of the left anterior C1 arch. No additional fractures are visualized. There are no traumatic subluxations. 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 There are multilevel degenerative changes present.. IMPRESSION: Acute nondisplaced fracture of the left anterior C1 arch. SINGLE VIEW PELVIS CLINICAL HISTORY: Fall. FINDINGS: 2 AP pelvic radiographs are correlated with pelvic CT dated 06/17/2017. The skeletal structures are osteopenic. There is no radiographic evidence of fracture involving the hips or bony pelvis. Mild to moderate arthritic change and joint space narrowing is seen in the hips. Sclerotic change is present in the sacroiliac joints. Enthesophytes arise from the anterior superior iliac spine bilaterally. Phleboliths are observed in the left hemipelvis. Round hyperdensities in the left lower quadrant likely represent retained contrast within colonic diverticula. IMPRESSION: Osteopenia with no radiographic evidence of fracture involving the hips or bony pelvis. [~ rep ct add3]] L-SPINE MIN 4 VIEWS ROUTINE HISTORY: Trauma. Pain. eval for fx COMPARISON: None. FINDINGS: There is no fracture. No subluxation. Mild degenerative disc changes throughout. Anterior reactive osteophyte formation at T12-L1 degenerative basis. No evidence for subluxation. IMPRESSION: Mild/moderate degenerative change. No acute process. EKG Reviewed EKG and agree with interpretation as follows: 79 bpm, sinus rhythm, premature supraventricular complexes, PVCs Impression Assessment and Plan 77 y/o male with a history of rectal cancer, HTN, HLD, DM II, CKD stage III and BPH who presented to the ED on 08/18 with syncope and diarrhea. Pt arrived afebrile, VSS. Patient found to have a C1 fracture of left anterior ring. Dr. Matos consulted by ED, recommended cervical collar. Patient also with fractures involving tips of nasal bones. Head CT, CXR, pelvis x-ray, lumbar spine x-ray unremarkable. Potassium and magnesium WNL, troponin negative. Syncope, could be related to dehydration -Admit to telemetry for observation -Trend troponin q8h x 2, first trop negative -Echocardiogram -Check TSH -EKG q am and prn chest pain Diarrhea, stool incontinence--related to radiation/cancer? -C. diff negative -Stool studies pending -Gentle IVF w/NSS + 20 KCl at 75 cc/hr C1 fracture, nasal bones fracture -Cervical collar -Ortho spine consulted, appreciate recs Rectal cancer -Continue Xeloda 1800 mg PO BID -Radiation on hold, has 5 treatments remaining HTN, HLD--stable -Continue diltiazem 180 mg PO qd, Crestor 10 mg PO hs DM II--last HgbA1c 2006 -Hold glimepiride, pioglitazone, metformin -Insulin sliding scale -Check BSGs q ac and qhs -check HgbA1c CKD stage III--stable -Creatinine around baseline BPH -Continue Flomax DVT prophylaxis -Heparin 5000 units SC q12h -BITA crawford and Herb Code Status -Level V, DO NOT RESUSCITATE ATTENDING PHYSICIAN ATTESTATION Pt was seen and examined by both Alondra Guillen PA-C and Admitting Hospitalist ( Phoebe Kapadia MD). Mr. Gian Bhakta is a 77-year-old gentleman with rectal cancer currently on oral chemo and radiation. He is being admitted at [facility] for further evaluation. Patient has been experiencing malaise and generalized weakness as well as hyperdefecation. Vital signs are within normal limits and labs are overall unremarkable with exception of Cr 1.54 and hyperglycemia of 208. Patient is in a c-collar. CT imaging has revealed a fracture at the level of C1. Orthospine service has been consulted and will appreciate any further recommendations. C. difficile is negative and rest of his stool studies are still pending. Admit to telemetry and will obtain echocardiogram in the morning. Resuscitation Status VTE Prophylaxis Will order VTE Prophylaxis: Yes
[2017-08-18] MEDS ORDERED: IV FLUIDS COMPLETED PRN (14:30)
--- NOTE | 2017-08-18 15:05 | EMERGENCY ROOM VISIT NOTE ---
History Report prepared by Ann: Ren Hill Under the Supervision of: Dr. Avelino Alfredo M.D. First contact with patient: 10:14 Chief Complaint: DEHYDRATION Stated Complaint: DEHYDRATED History of Present Illness The patient is a 77 year old male who presents to the Emergency Room with complaints of intermittent diarrhea beginning a week ago. He has a history of rectal cancer for which he is currently receiving oral chemotherapy and radiation. The patient states that he has had abnormal bowel movements for a long time (due to his cancer). He states that he often has very hard, formed stool along with his diarrhea. He reports his most recent diarrhea appears "stringy". The patient previously had rectal bleeding three months ago, but has not had any recently. He currently complains of fatigue and generalized weakness. He feels that he is likely dehydrated. The patient notes that he fell on his face at home last night. He reports hitting his head, and briefly losing consciousness. He states he got up to go to the bathroom at night when he passed out. He complains of left lower back pain from the fall. The patient denies fevers, vomiting, chest pain, or SOB. He states he occasionally feels tightness in his bladder. He was sent to the ED from radiation oncology today after having multiple episodes of diarrhea. He denies any chest pain or shortness of breath. Source of History: patient Onset: A week ago Quality: other (diarrhea) Timing: intermittent Associated Symptoms: + back pain (left lower s/p fall), + fatigue, + weakness (generalized), No fevers, No chest pain, No SOB, No vomiting, No hematochezia Review of Systems See HPI for pertinent positives & negatives. A total of 10 systems reviewed and were otherwise negative. Past Medical & Surgical Medical Problems: (1) Diarrhea (2) Rectal cancer (3) Syncope and collapse Surgical Problems: (1) Previous back surgery Family History No pertinent family history stated. Social History Smoking Status: Never Smoker Drug Use: none Housing Status: lives with family Current/Historical Medications Scheduled Capecitabine (Xeloda), 1,800 MG PO Q12H Cholecalciferol (Vitamin D3), 2 TAB PO QAM Cyanocobalamin (Vitamin B-12), 2,000 MCG PO QAM Diltiazem Hcl Ext Rel (Tiazac), 180 MG PO QAM Glimepiride (Glimepiride), 1 MG PO QAM Iron Combinations (Iron Complex), 65 MG PO QAM Metformin Hcl (Glucophage Er), 750 MG PO HS Rosuvastatin Calcium (Crestor), 10 MG PO HS Tamsulosin Hcl (Flomax), 0.4 MG PO HS [glimiperide-piog], 1 TAB PO QAM Allergies Coded Allergies: Atorvastatin (Verified Allergy, Unknown, SKIN REACTION, 06/21/17) Physical Exam Vital Signs Date Time Temp Pulse Resp B/P (MAP) Pulse Ox O2 Delivery O2 Flow Rate FiO2 08/18/17 13:52 70 16 152/78 94 Room Air 08/18/17 13:08 78 08/18/17 12:25 93 23 138/79 97 Room Air 08/18/17 11:26 82 16 148/76 75 152/68 08/18/17 10:21 36.6 81 16 159/82 97 Room Air 08/18/17 10:16 81 Physical Exam Constitutional: Vital signs reviewed. Eyes: Pupils are equal round reactive to light. Conjunctiva are noninjected. HENT: Abrasion to right forehead. Nasal bridge tenderness without deformity. No active bleeding. No septal hematoma. Pharynx is clear without erythema or exudate. Mucous membranes are moist. Neck supple without meningeal signs. Respiratory: Clear to auscultation bilaterally. Breath sounds are equal bilaterally. Cardiovascular: Regular rate and rhythm. No rubs or gallops. GI: Soft, nondistended and nontender. Bowel sounds are present. Musculoskeletal: No peripheral edema. Tenderness above the right iliac crest. No midline tenderness to the lumbar spine or hips. Integumentary: No cyanosis. Neurological: The patient is awake and alert. Cranial nerves II-XII are intact. Motor is 5 out of 5 all extremities. Sensation is intact to light touch all extremities. Normal speech. No pronator drift. Psychiatric: Normal affect. Medical Decision & Procedures ER Provider Diagnostic Interpretation: Radiology results as stated below per my review and the radiologist's interpretation: CT SCAN OF THE FACIAL BONES WITHOUT IV CONTRAST FINDINGS: The skeletal structures are osteopenic. There are minimally distracted fractures involving the tips of the nasal bones with overlying soft tissue edema. The bony nasal septum appears intact noting rightward deviation. No additional facial bone fracture is seen. The bony orbits are intact and the orbital contents are within normal limits noting bilateral ocular lens implants. The zygomatic arches and pterygoid plates are preserved. The maxilla and mandible are intact. There are no layering blood products within the paranasal sinuses. Mild mucosal thickening is seen in the maxillary antra and trace mucosal thickening is seen in the ethmoid sinuses. The remaining paranasal sinuses and mastoid air cells are clear. The visualized calvarium appears intact. There is a nondistracted fracture involving the left anterior ring and lateral masses of C1, best seen on axial image #160. Partially imaged brain parenchyma is within normal limits noting age-related involutional change. IMPRESSION: 1. There is a nondistracted fracture involving the left anterior ring and lateral mass of C1. 2. There are fractures involving the tips of the nasal bones with overlying soft tissue edema. 3. No additional facial bone fracture is seen. The bony orbits are intact. Electronically signed by: Richard Fields M.D. 08/18/2017 11:[address] SCAN OF THE BRAIN WITHOUT IV CONTRAST FINDINGS: Brain parenchyma: There are age-related involutional changes noting mild subcortical and periventricular microangiopathic change. There is no hemorrhage, mass effect, or evidence of acute territorial ischemia by CT criteria. Marsh-white matter is preserved. No extra-axial fluid collection is seen. Ventricles, sulci, cisterns: Prominent secondary to involutional change. Intracranial vasculature: There is atherosclerotic calcification of the cavernous carotid and vertebral arteries. Calvarium: The skeletal structures are osteopenic. No depressed calvarial fracture is seen. Sinuses and mastoids: Mild mucosal thickening is seen in the maxillary antra. Trace mucosal thickening is noted in the ethmoid sinuses. The remaining visualized paranasal sinuses are clear. The mastoid air cells are well pneumatized. Orbits: The bony orbits are grossly intact. There are bilateral ocular lens implants. IMPRESSION: There is no hemorrhage, mass effect, or evidence of acute territorial ischemia by CT criteria. Electronically signed by: Richard Fields M.D. 08/18/2017 11:[address] OF THE CERVICAL SPINE FINDINGS: The visualized portions of the lung apices reveal no evidence of pneumothorax. There is a nondisplaced fracture of the left anterior C1 arch. No additional fractures are visualized. There are no traumatic subluxations. 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 There are multilevel degenerative changes present.. IMPRESSION: Acute nondisplaced fracture of the left anterior C1 arch. Electronically signed by: Francisco Schulz M.D. 08/18/2017 11:57 AM SINGLE VIEW PELVIS FINDINGS: 2 AP pelvic radiographs are correlated with pelvic CT dated 06/17/2017. The skeletal structures are osteopenic. There is no radiographic evidence of fracture involving the hips or bony pelvis. Mild to moderate arthritic change and joint space narrowing is seen in the hips. Sclerotic change is present in the sacroiliac joints. Enthesophytes arise from the anterior superior iliac spine bilaterally. Phleboliths are observed in the left hemipelvis. Round hyperdensities in the left lower quadrant likely represent retained contrast within colonic diverticula. IMPRESSION: Osteopenia with no radiographic evidence of fracture involving the hips or bony pelvis. Electronically signed by: Richard Fields M.D. 08/18/2017 12:24 PM L-SPINE MIN 4 VIEWS ROUTINE FINDINGS: There is no fracture. No subluxation. Mild degenerative disc changes throughout. Anterior reactive osteophyte formation at T12-L1 degenerative basis. No evidence for subluxation. IMPRESSION: Mild/moderate degenerative change. No acute process. The above report was generated using voice recognition software. It may contain grammatical, syntax or spelling errors. Electronically signed by: Fredo Tay M.D. 08/18/2017 12:23 PM Laboratory Results 08/18/17 10:40 Red Blood Count 3.46, Mean Corpuscular Volume 87.0, Mean Corpuscular Hemoglobin 28.3, Mean Corpuscular Hemoglobin Concent 32.6, Mean Platelet Volume 8.6, Neutrophils (%) (Auto) 81.2, Lymphocytes (%) (Auto) 5.2, Monocytes (%) (Auto) 12.9, Eosinophils (%) (Auto) 0.5, Basophils (%) (Auto) 0.0, Neutrophils # (Auto ) 3.60, Lymphocytes # (Auto) 0.23, Monocytes # (Auto) 0.57, Eosinophils # (Auto ) 0.02, Basophils # (Auto) 0.00 08/18/17 10:40 Test 08/18/17 10:40 08/18/17 10:50 08/18/17 13:45 White Blood Count 4.43 K/uL (4.8-10.8) Red Blood Count 3.46 M/uL (4.7-6.1) Hemoglobin 9.8 g/dL (14.0-18.0) Hematocrit 30.1 % (42-52) Mean Corpuscular Volume 87.0 fL (80-100) Mean Corpuscular Hemoglobin 28.3 pg (25-34) Mean Corpuscular Hemoglobin Concent 32.6 g/dl (32-36) Platelet Count 186 K/uL (130-400) Mean Platelet Volume 8.6 fL (7.4-10.4) Neutrophils (%) (Auto) 81.2 % Lymphocytes (%) (Auto) 5.2 % Monocytes (%) (Auto) 12.9 % Eosinophils (%) (Auto) 0.5 % Basophils (%) (Auto) 0.0 % Neutrophils # (Auto) 3.60 K/uL (1.4-6.5) Lymphocytes # (Auto) 0.23 K/uL (1.2-3.4) Monocytes # (Auto) 0.57 K/uL (0.11-0.59) Eosinophils # (Auto) 0.02 K/uL (0-0.5) Basophils # (Auto) 0.00 K/uL (0-0.2) RDW Standard Deviation 52.9 fL (36.4-46.3) RDW Coefficient of Variation 19.2 % (11.5-14.5) Immature Granulocyte % (Auto) 0.2 % Immature Granulocyte # (Auto) 0.01 K/uL (0.00-0.02) Prothrombin Time 11.7 SECONDS (9.0-12.0) Prothromb Time International Ratio 1.1 (0.9-1.1) Activated Partial Thromboplast Time 24.6 SECONDS (21.0-31.0) Partial Thromboplastin Ratio 0.9 Anion Gap 7.0 mmol/L (3-11) Est Creatinine Clear Calc Drug Dose 45.9 ml/min Estimated GFR () 49.7 Estimated GFR (Non- 42.9 BUN/Creatinine Ratio 15.3 (10-20) Calcium Level 8.4 mg/dl (8.5-10.1) Magnesium Level 1.9 mg/dl (1.8-2.4) Total Bilirubin 0.6 mg/dl (0.2-1) Direct Bilirubin 0.2 mg/dl (0-0.2) Aspartate Amino Transf (AST/SGOT) 15 U/L (15-37) Alanine Aminotransferase (ALT/SGPT) 18 U/L (12-78) Alkaline Phosphatase 65 U/L (45-117) Total Protein 6.5 gm/dl (6.4-8.2) Albumin 2.9 gm/dl (3.4-5.0) Bedside Troponin I < 0.030 ng/ml (0-0.045) Date/Time Source Procedure Growth Status 08/18/17 10:30 Stool C.difficile Toxin B Gene (PCR) - Final No C. difficile toxin B gene detected Complete Laboratory results as reviewed by me. Medications Administered Medications (Trade) Dose Ordered Sig/Omaira Route Start Time Stop Time Status Last Admin Dose Admin Sodium Chloride 500 ml @ 999 mls/hr Q31M STAT IV 08/18/17 10:29 08/18/17 10:59 DC 08/18/17 11:28 999 MLS/HR ECG Per My Interpretation Indication: syncope Rate (beats per minute): 79 Rhythm: sinus rhythm Findings: PVC, Q waves (Inferior), other (No ST elevation. ) ED Course 1019: The patient was evaluated in room C4. A complete history and physical exam was performed. 1029: Ordered Sodium Chloride 500 ml @ 999 mls/hr IV. 1222: I spoke with the patient's nurse. The patient will be placed in a Ruby-J collar. 1230: I updated the patient. He has no complaints of neck pain. He was placed in a Ruby-J collar. 1240: Upon reevaluation, the patient appears comfortable. I discussed tonight's findings with him. He verbalized agreement of the treatment plan. The patient will be evaluated for further management. Medical Decision This is a 77-year-old male who presents with a syncopal episode, diarrhea and head injury. Differential diagnosis includes vasovagal syncope, orthostatic hypotension, dehydration, C. difficile, intracranial hemorrhage, concussion, cervical fracture. I did perform a limited focused review of portions of the patient's old chart on the electronic medical record. 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 I did evaluate the patient as noted above. The patient is presenting with syncopal episode yesterday while getting up to go to the bathroom. He has also had copious amounts of diarrhea for the past week. C. difficile testing was negative. IV access was established. The patient was placed on a continuous environmental monitoring specialist. I did order and personally review the patient's 12-lead EKG and chest/pelvic/LS spine x-rays as described above. I did order and review the patient's blood work as noted in the electronic medical record. I did order a CT of the head, cervical spine and facial bones. I did review the images myself as well as the radiology report as described above. The patient does not have any intracranial hemorrhage. He does have a fracture to C1 which is nondisplaced as well as nasal bone fractures. I did discuss the test results with the patient. The patient was placed in a Ruby J collar. I did discuss case with Dr. Matos of orthopedic spine. He did not recommend any acute treatment currently other than the cervical spine. He will see the patient in the hospital. I did discuss case with the hospitalist and porter sample case. Head Trauma GCS Score: 15 Medication Reconcilliation Current Medication List: was personally reviewed by me Blood Pressure Screening Patient's blood pressure: Elevated blood pressure Blood pressure disposition: Referred to PCP Consults Time Called: 1230 Consulting Physician: Dr. Matos - Orthopedics Returned Call: [address] Matos of Orthopedics. We discussed the patient and his results. Dr. Matos recommends that the patient be placed in a cervical collar, and he will see the patient in the hospital. Additional Consults: Time Called: 1232 Consulted Physician: Dr. Amaral - [facility] [place] Returned Call: 1238 Additional Comments: I spoke with Dr. Amaral. We discussed the patient and his results. The patient will be further evaluated by MARCELO. Impression Primary Impression: Syncope Additional Impressions: C1 cervical fracture Nasal fracture Acute head injury Diarrhea Low back pain Scribe Attestation The scribe's documentation has been prepared under my direct and personally reviewed by me in its entirety. I confirm that the note above accurately reflects all work, treatment, procedures, and medical decision making performed by me. Departure Information Dispostion Being Evaluated By Hospitalist Referrals Lavinia Mcclure (PCP) Patient Instructions My [facility] Problem Qualifiers Primary Impression: Syncope Syncope type: unspecified Qualified Codes: R55 - Syncope and collapse Additional Impressions: C1 cervical fracture Encounter type: initial encounter Fracture type: closed Fracture morphology : other fracture Fracture alignment: nondisplaced Qualified Codes: S12.091A - Other nondisplaced fracture of first cervical vertebra, initial encounter for closed fracture Nasal fracture Encounter type: initial encounter Fracture type: closed Qualified Codes: S02.2XXA - Fracture of nasal bones, initial encounter for closed fracture Acute head injury Encounter type: initial encounter Qualified Codes: S09.90XA - Unspecified injury of head, initial encounter Diarrhea Diarrhea type: unspecified type Qualified Codes: R19.7 - Diarrhea, unspecified Low back pain Chronicity: acute Back pain laterality: right Sciatica presence: without sciatica Qualified Codes: M54.5 - Low back pain
[2017-08-18 15:30] VITALS: BP 162/72; PULSE 79; TEMP 36.7; O2SAT 94
[2017-08-18 15:50] VITALS: BP 162/72; PULSE 79; TEMP 36.7; O2SAT 94; BMI 30.7
[2017-08-18] MEDS: NSS + 20MEQ KCL 1000ML 1,000 ML IV SCH (16:07)
[2017-08-18] MEDS: INSULIN ASPART 100 UNITS/ML 3 ML PEN SC SCH ×2 (16:15→21:00)
--- NOTE | 2017-08-18 16:24 | HISTORY & PHYSICAL EXAMINATION ---
DATE OF ADMISSION: 08/18/2017 Chief concern was that of a spinal fracture of the C1 vertebrae. The patient does not have pain, so it is not really his chief complaint. HISTORY OF PRESENT ILLNESS: He has had intermittent diarrhea from rectal carcinoma, has poor sensation. He recently got up ____ a little bit lightheaded secondary to electrolyte imbalance, fell, suffered the injury, brought to the Emergency Room. CT scans were taken, a C1 fracture was identified. I looked at the images, I was not really sure that they truly was a fracture and on physical examination he has zero pain and never has had pain. PAST MEDICAL HISTORY: Rectal carcinoma, syncope, and diarrhea. SOCIAL HISTORY: Nonsmoker, nondrug use. Lives with family. MEDICATIONS: Listed. PHYSICAL EXAMINATION: VITAL SIGNS: Stable. Blood pressure stable, pulse 78, pulse ox 94% GENERAL: Alert, oriented. HEENT: Pupils were reactive to light. NECK: Clear, good range of motion. No pain with percussion. No adenopathy, no swelling. HEART AND LUNGS: I did not auscultate. NEUROLOGIC: Intact. Moves all extremities. Cranial nerves intact, alert, oriented. X-RAYS: I looked at the images. I do not see a true fracture, may be an artifact. IMPRESSION: Putting the whole thing together ____ clinical having zero pain and possibly an artifact in the cervical spine, I am calling this a strain/sprain at the most of the cervical spine. DISPOSITION: We will get him off his cervical collar, will advance his activity, will advance his diet. I will follow him closely. If there are any signs of instability or increased pain, we can easily put him back into a collar.
[2017-08-18 19:15] VITALS: BP 169/73; PULSE 73; TEMP 36.7; O2SAT 95
[2017-08-18] MEDS: HEPARIN SOD 5000 UNIT/0.5 ML CARP SQ SCH (21:07)
[2017-08-18] MEDS: ROSUVASTATIN CALCIUM 10 MG TAB PO SCH (21:17)
[2017-08-18] MEDS: TAMSULOSIN HCL 0.4 MG CAP PO SCH (21:17)
[2017-08-18] MEDS: ACETAMINOPHEN 325 MG TAB PO PRN (21:23)
[2017-08-18 23:58] VITALS: BP 151/72; PULSE 83; TEMP 36.7; O2SAT 92
[2017-08-19 02:51] LABS: HEMATOCRIT 29.1 % (42-52); HEMOGLOBIN 9.3 g/dL (14.0-18.0); MEAN CELL VOLUME 87.4 fL (80-100); MEAN CORPUSCULAR HEMOGLOBIN 27.9 pg (25-34); MEAN PLATELET VOLUME 8.3 fL (7.4-10.4); PLATELET COUNT 175 K/uL (130-400); RED CELL DISTRIBUTION WIDTH CV 19.2 % (11.5-14.5); WHITE BLOOD COUNT 3.19 K/uL (4.8-10.8)
[2017-08-19 03:10] LABS: CALCIUM 8.4 mg/dl (8.5-10.1); CREATININE 1.24 mg/dl (0.60-1.40); POTASSIUM 3.7 mmol/L (3.5-5.1)
[2017-08-19 03:46] VITALS: BP 127/54; PULSE 76; TEMP 36.4; O2SAT 93
[2017-08-19] MEDS: NSS + 20MEQ KCL 1000ML 1,000 ML IV SCH ×2 (05:28→18:52)
[2017-08-19] MEDS: ACETAMINOPHEN 325 MG TAB PO PRN ×2 (05:29→21:55)
[2017-08-19 06:31] LABS: HEMOGLOBIN A1C 9.8 % (4.5-5.6)
[2017-08-19] MEDS: INSULIN ASPART 100 UNITS/ML 3 ML PEN SC SCH ×4 (07:00→20:49)
[2017-08-19 07:38] VITALS: BP 122/61; PULSE 64; TEMP 36.4; O2SAT 94
[2017-08-19] MEDS: CYANOCOBALAMIN 500 MCG TAB (VIT B-12) PO SCH (09:23)
[2017-08-19] MEDS: DILTIAZEM HCL (TIAzac) 180 MG CAPCR PO SCH (09:23)
[2017-08-19] MEDS: CHOLECALCIFEROL 1000 INTER.UNIT TAB PO SCH (09:23)
[2017-08-19] MEDS: HEPARIN SOD 5000 UNIT/0.5 ML CARP SQ SCH ×2 (09:28→20:50)
--- NOTE | 2017-08-19 10:46 | ECHOCARDIOGRAM REPORT ---
*NOTICE TO RECEIVING LIBERTARIAN AGENCY This information is strictly Confidential and protected under [place] law. [place] law prohibits you from making any further disclosure of this information unless further disclosure is expressly permitted by the written consent of the person to whom it pertains or is authorized by law. A general authorization for the release of medical or other information is not sufficient for this purpose. Hospital accepts no responsibility if the information is made available to any other person, INCLUDING THE PATIENT. Interpretation Summary * Name: MARIXA TAYLOR Study Date: 08/19/2017 06:24 AM BP: 122/61 mmHg * Patient Location: C.2T\S\E219\S\1 HR: 64 * : 1940 (M/d/yyyy) Gender: Male Height: 69 in * Age: 77 yrs Ethnicity: CA Weight: 211 lb * Ordering Physician: Alondra Guillen * Referring Physician: UNKNOWN * Performed By: Juanito Covarrubias RCS * * Reason For Study: Syncope * BSA: 2.1 m2 * -- Conclusions -- * The left ventricle is borderline dilated. * There is borderline concentric left ventricular hypertrophy. * Left ventricular systolic function is normal. * Diastolic dysfunction, Grade II, consistent with elevated left atrial pressure. * Borderline left atrial enlargement. * Right ventricular systolic pressure is elevated at 30-40mmHg. * Mild aortic root dilatation. * Trace pericardial effusion Procedure Details * A complete two-dimensional transthoracic echocardiogram was performed (2D, M-mode, Doppler and color flow Doppler). Left Ventricle * The left ventricle is borderline dilated. * There is borderline concentric left ventricular hypertrophy. * Left ventricular systolic function is normal. * Ejection Fraction = 55-60%. * Diastolic dysfunction, Grade II, consistent with elevated left atrial pressure. * The left ventricular wall motion is normal. Right Ventricle * The right ventricle is normal in size and function. * The right ventricular systolic function is normal as assessed by tricuspid annular plane systolic excursion (TAPSE) (normal >1.5 cm). Atria * Borderline left atrial enlargement. * Right atrial size is normal. Mitral Valve * The mitral valve is grossly normal. * Significant mitral regurgitation is absent. Tricuspid Valve * The tricuspid valve is not well visualized, but is grossly normal. * There is trace tricuspid regurgitation. * Right ventricular systolic pressure is elevated at 30-40mmHg. Aortic Valve * The aortic valve is normal in structure and function. * The aortic valve is trileaflet. * No hemodynamically significant valvular aortic stenosis. * There is no significant aortic regurgitation. Pulmonic Valve * The pulmonic valve is not well visualized. Great Vessels * Mild aortic root dilatation. Pericardium/Pleural * Trace pericardial effusion Great Vessels * Dilated inferior vena cava with reduced collapsability with sniff indicates an elevated right atrial pressure of 15 mmHg MMode 2D Measurements and Calculations IVSd 1.4 cm IVSs 1.3 cm LVIDd 5.4 cm LVIDs 3.6 cm LVPWd 1.2 cm LVPWs 1.6 cm IVS/LVPW 1.2 FS 34.3 % EDV(Teich) 142.8 ml ESV(Teich) 53.1 ml EF(Teich) 62.8 % EDV(cubed) 159.6 ml ESV(cubed) 45.2 ml EF(cubed) 71.7 % % IVS thick -7.82 % % LVPW thick 33.3 % LV mass(C)d 309.0 grams LV mass(C)dI 146.2 grams/m\S\2 LV mass(C)s 194.4 grams LV mass(C)sI 92.0 grams/m\S\2 SV(Teich) 89.7 ml SI(Teich) 42.5 ml/m\S\2 SV(cubed) 114.4 ml SI(cubed) 54.1 ml/m\S\2 Ao root diam 4.1 cm Ao root area 13.1 cm\S\2 ACS 2.1 cm LA dimension 4.0 cm asc Aorta Diam 3.7 cm LA/Ao 0.99 EDV(MOD-sp4) 128.0 ml ESV(MOD-sp4) 57.0 ml EF(MOD-sp4) 55.5 % SV(MOD-sp4) 71.0 ml SI(MOD-sp4) 33.6 ml/m\S\2 Doppler Measurements and Calculations MV E max nicho 85.0 cm/sec MV A max nicho 68.6 cm/sec MV E/A 1.2 MV dec time 0.32 sec Ao V2 max 128.1 cm/sec Ao max PG 6.6 mmHg Ao max PG (full) 3.1 mmHg LV V1 max PG 3.5 mmHg LV V1 max 93.0 cm/sec PA V2 max 97.4 cm/sec PA max PG 3.8 mmHg PI max nicho 230.6 cm/sec PI max PG 21.5 mmHg PI dec slope 222.3 cm/sec\S\2 PI P1/2t 303.8 msec TR max nicho 264.3 cm/sec
[2017-08-19 11:18] VITALS: BP 144/8; PULSE 73; TEMP 36.8; O2SAT 96
[2017-08-19 12:24] VITALS: Ht 175.3 cm; Wt 95.0 kg
[2017-08-19] MEDS ORDERED: DIPHENOXYLATE/ATROPINE 2.5/0.025MG TAB PO ONE (12:45)
[2017-08-19 15:29] VITALS: BP 156/70; PULSE 68; TEMP 36.5; O2SAT 95
--- NOTE | 2017-08-19 16:35 | Progress Note ---
Subjective Date of Service: Aug 19, 2017. Subjective Pt evaluation today including: conversation w/ patient, physical exam, chart review, lab review, review of studies, conversation w/ rewards consultant, review of inpatient medication list Pleasant conversational, however he is frustrated with severe diarrhea, has been more than 10 times a day Denies fever and chills, denies neck pain no dizziness Problem List Medical Problems: (1) Acute head injury Status: Acute (2) C1 cervical fracture Status: Acute (3) Low back pain Status: Acute (4) Nasal fracture Status: Acute (5) Syncope Status: Acute (6) Urinary retention Status: Acute (7) Urinary retention Status: Acute Review of Systems Constitutional: + weakness, + fatigue, No fever, No chills, No sweats, No weight loss, No problem reported Eyes: No worsening of vision, No eye pain, No redness, No discharge, No diplopia ENT: No hearing loss, No unusual epistaxis, No nasal symptoms, No sore throat, No tinnitus, No dental problems, No trouble swallowing Respiratory: No cough, No sputum, No wheezing, No shortness of breath, No dyspnea on exertion, No dyspnea at rest, No hemoptysis Cardiac: No chest pain, No orthopnea, No PND, No edema, No claudication, No palpitations Abdomen: + see HPI, + diarrhea, No pain, No nausea, No vomiting, No constipation Musculoskeletal: + joint pain, No muscle pain, No swelling, No calf pain Male : No dysuria, No urinary frequency, No incontinence, No nocturia more than once/night, No slowing stream, No hematuria Neurologic: No memory loss, No paralysis, No weakness, No numbness/tingling, No vertigo, No balance problems Psychiatric: No depression symptoms, No anhedonism, No anxiety, No insomnia, No substance abuse Heme: No abnormal bleeding/bruising, No clotting problems, No swollen lymph nodes, No night sweats Endo: No fatigue, No excessive thirst, No excessive urination Skin: + problem reported (A few skin abrasions in the forehead), No rash, No itch, No new/changing skin lesions, No color change, No bleeding Objective Vital Signs Date Time Temp Pulse Resp B/P (MAP) Pulse Ox O2 Delivery O2 Flow Rate FiO2 08/19/17 15:29 36.5 68 18 156/70 (98) 95 Room Air 3/30/18 12:00 Room Air 08/19/17 11:18 36.8 73 18 144/8 (53) 96 Room Air 08/19/17 08:00 Room Air 08/19/17 07:38 36.4 64 19 122/61 (81) 94 Room Air 08/19/17 04:00 Room Air 08/19/17 03:46 36.4 76 18 127/54 (78) 93 Room Air 08/19/17 00:00 Room Air 08/18/17 23:58 36.7 83 19 151/72 (98) 92 Room Air 08/18/17 20:00 Room Air 08/18/17 19:15 36.7 73 18 169/73 (105) 95 Room Air Physical Exam General Appearance: WD/WN, no apparent distress Eyes: normal inspection, PERRL, EOMI, sclerae normal ENT: normal ENT inspection, hearing grossly normal, pharynx normal Neck: supple, no adenopathy, thyroid normal, no JVD, no carotid bruits, trachea midline Respiratory/Chest: chest non-tender, normal breath sounds, no respiratory distress, no accessory muscle use Cardiovascular: regular rate, rhythm, no gallop, no JVD, no murmur, + tachycardia Abdomen: normal bowel sounds, non tender, soft, no organomegaly, no pulsatile mass, + abnormal bowel sounds (Active) Extremities: normal range of motion, non-tender, normal inspection, no pedal edema, no calf tenderness, normal capillary refill, pelvis stable 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, no motor/sensory deficits, alert, normal mood/affect, oriented x 3 Skin: normal color, warm/dry, no rash Lymphatic: no adenopathy Laboratory Results Last 24 Hours Test 08/18/17 18:58 08/18/17 20:23 08/19/17 02:38 08/19/17 06:33 Troponin I < 0.015 ng/ml 0.020 ng/ml Bedside Glucose 137 mg/dl 83 mg/dl White Blood Count 3.19 K/uL Red Blood Count 3.33 M/uL Hemoglobin 9.3 g/dL Hematocrit 29.1 % Mean Corpuscular Volume 87.4 fL Mean Corpuscular Hemoglobin 27.9 pg Mean Corpuscular Hemoglobin Concent 32.0 g/dl RDW Standard Deviation 54.0 fL RDW Coefficient of Variation 19.2 % Platelet Count 175 K/uL Mean Platelet Volume 8.3 fL Sodium Level 139 mmol/L Potassium Level 3.7 mmol/L Chloride Level 107 mmol/L Carbon Dioxide Level 26 mmol/L Anion Gap 6.0 mmol/L Blood Urea Nitrogen 20 mg/dl Creatinine 1.24 mg/dl Est Creatinine Clear Calc Drug Dose 57.0 ml/min Estimated GFR () 64.6 Estimated GFR (Non- 55.7 BUN/Creatinine Ratio 16.2 Random Glucose 98 mg/dl Calcium Level 8.4 mg/dl Magnesium Level 1.9 mg/dl Test 08/19/17 11:08 08/19/17 16:12 Bedside Glucose 137 mg/dl 167 mg/dl Assessment and Plan 77 y/o male admitted on 08/18 with syncope and diarrhea. Syncope likely from dehydration, currently stable Acute on chronic diarrhea, stool incontinence--related to radiation/cancer? -C. diff negative -Stool studies pending -Continue gentle IVF w/NSS + 20 KCl at 75 cc/hr C1 fracture, nasal bones fracture, Cervical collar was cleared by Dr. Garrison, continue watch history of rectal cancer, ; discuss with radiation oncology will hold radiation treatment today HTN, HLD, DM II, CKD stage III and BPH, condition stable continue current medication, follow-up renal function, continue insulin sliding scale DVT prophylaxis Continue other supportive care Continued [facility] stay due to: multiple IV medications needed Discharge planning: home
[2017-08-19 19:21] VITALS: BP 173/75; PULSE 76; TEMP 36.3; O2SAT 98
[2017-08-19] MEDS: ROSUVASTATIN CALCIUM 10 MG TAB PO SCH (20:49)
[2017-08-19] MEDS: TAMSULOSIN HCL 0.4 MG CAP PO SCH (20:49)
[2017-08-20] VITALS (8 sets, daily range): BP systolic 122–179; BP diastolic 61–88; PULSE 68–79; TEMP 36.4–36.8; O2SAT 94–96
[2017-08-20] MEDS: DIPHENOXYLATE/ATROPINE 2.5/0.025MG TAB PO PRN (04:22)
[2017-08-20 06:36] LABS: HEMATOCRIT 28.2 % (42-52); HEMOGLOBIN 9.2 g/dL (14.0-18.0); MEAN CELL VOLUME 87.6 fL (80-100); MEAN CORPUSCULAR HEMOGLOBIN 28.6 pg (25-34); MEAN CORPUSCULAR HGB CONC 32.6 g/dl (32-36); MEAN PLATELET VOLUME 7.9 fL (7.4-10.4); PLATELET COUNT 182 K/uL (130-400); RED CELL DISTRIBUTION WIDTH CV 19.5 % (11.5-14.5); RED CELL DISTRIBUTION WIDTH SD 55.2 fL (36.4-46.3); WHITE BLOOD COUNT 3.19 K/uL (4.8-10.8)
[2017-08-20 07:13] LABS: CREATININE 1.07 mg/dl (0.60-1.40); POTASSIUM 3.9 mmol/L (3.5-5.1)
[2017-08-20] MEDS: BACITRACIN OINT 15 GM TUBE EXT SCH (07:29)
[2017-08-20] MEDS: NSS + 20MEQ KCL 1000ML 1,000 ML IV SCH ×2 (07:29→21:44)
[2017-08-20] MEDS: CYANOCOBALAMIN 500 MCG TAB (VIT B-12) PO SCH (07:30)
[2017-08-20] MEDS: DILTIAZEM HCL (TIAzac) 180 MG CAPCR PO SCH (07:30)
[2017-08-20] MEDS: CHOLECALCIFEROL 1000 INTER.UNIT TAB PO SCH (07:30)
[2017-08-20] MEDS: HEPARIN SOD 5000 UNIT/0.5 ML CARP SQ SCH ×2 (07:31→21:44)
[2017-08-20] MEDS: INSULIN ASPART 100 UNITS/ML 3 ML PEN SC SCH ×4 (08:26→21:43)
[2017-08-20] MEDS: MAGNESIUM OXIDE 400 MG TAB PO SCH ×2 (09:40→20:38)
[2017-08-20] MEDS ORDERED: MAGNESIUM SULFATE 1GM / D5W 1 GM in PREMIXED IN D5W 100 ML IV ONE (12:30)
--- NOTE | 2017-08-20 13:53 | Progress Note ---
Subjective Date of Service: Aug 20, 2017. Subjective Pt evaluation today including: conversation w/ patient, conversation w/ family , physical exam, chart review, lab review, review of studies, conversation w/ financial consultant, review of inpatient medication list Has 8 times diarrhea today, yesterday was 11 time, patient feels fatigued decreased appetite, feel frustrated, however he was eating 100% breakfast this morning, denies fever and chills, there was no blood in the stool Problem List Medical Problems: (1) Acute head injury Status: Acute (2) C1 cervical fracture Status: Acute (3) Low back pain Status: Acute (4) Nasal fracture Status: Acute (5) Syncope Status: Acute (6) Urinary retention Status: Acute (7) Urinary retention Status: Acute Review of Systems Constitutional: + weakness, + fatigue, No fever, No chills, No sweats, No weight loss, No problem reported Eyes: No worsening of vision, No eye pain, No redness, No discharge, No diplopia ENT: No hearing loss, No unusual epistaxis, No nasal symptoms, No sore throat, No tinnitus, No dental problems, No trouble swallowing Respiratory: + cough (Occasional), No sputum, No wheezing, No shortness of breath, No dyspnea on exertion, No dyspnea at rest, No hemoptysis Cardiac: + edema (Trace edema), No chest pain, No orthopnea, No PND, No claudication, No palpitations Abdomen: + diarrhea, No pain, No nausea, No vomiting, No constipation Musculoskeletal: No joint pain, No muscle pain, No swelling, No calf pain Male : No dysuria, No urinary frequency, No incontinence, No nocturia more than once/night, No slowing stream, No hematuria Neurologic: No memory loss, No paralysis, No weakness, No numbness/tingling, No vertigo, No balance problems Psychiatric: No depression symptoms, No anhedonism, No anxiety, No insomnia, No substance abuse Heme: No abnormal bleeding/bruising, No clotting problems, No swollen lymph nodes, No night sweats Endo: No fatigue, No excessive thirst, No excessive urination Skin: No rash, No itch, No new/changing skin lesions, No color change, No bleeding Objective Vital Signs Date Time Temp Pulse Resp B/P (MAP) Pulse Ox O2 Delivery O2 Flow Rate FiO2 08/20/17 12:00 Room Air 08/20/17 11:26 36.6 79 20 179/71 (107) 96 Room Air 08/20/17 08:00 Room Air 08/20/17 07:26 36.5 73 22 148/88 (108) 94 Room Air 08/20/17 04:00 Room Air 08/20/17 03:38 36.4 75 20 139/67 (91) 94 Room Air 08/20/17 00:13 36.5 68 17 122/61 (81) 96 Room Air 08/20/17 00:00 Room Air 08/19/17 20:00 Room Air 08/19/17 19:21 36.3 76 18 173/75 (107) 98 Room Air 08/19/17 16:00 Room Air 08/19/17 15:29 36.5 68 18 156/70 (98) 95 Room Air Physical Exam General Appearance: WD/WN, no apparent distress, + obese, + pertinent finding ( Speak full sentences, some upset) Eyes: normal inspection, PERRL, EOMI, sclerae normal ENT: normal ENT inspection, hearing grossly normal, pharynx normal Neck: supple, no adenopathy, thyroid normal, no JVD, no carotid bruits, trachea midline Respiratory/Chest: chest non-tender, normal breath sounds, no respiratory distress, no accessory muscle use, + decreased breath sounds Cardiovascular: regular rate, rhythm, no gallop, no JVD, no murmur, + pertinent finding (Trace edema) Abdomen: normal bowel sounds, non tender, soft, no organomegaly, no pulsatile mass Extremities: normal range of motion, non-tender, normal inspection, no pedal edema, no calf tenderness, normal capillary refill, pelvis stable, + swelling ( Trace edema) 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, no motor/sensory deficits, alert, normal mood/affect, oriented x 3 Skin: normal color, warm/dry, no rash Lymphatic: no adenopathy Laboratory Results Last 24 Hours Test 08/19/17 16:12 08/19/17 20:23 08/20/17 06:23 08/20/17 06:58 Bedside Glucose 167 mg/dl 177 mg/dl 159 mg/dl White Blood Count 3.19 K/uL Red Blood Count 3.22 M/uL Hemoglobin 9.2 g/dL Hematocrit 28.2 % Mean Corpuscular Volume 87.6 fL Mean Corpuscular Hemoglobin 28.6 pg Mean Corpuscular Hemoglobin Concent 32.6 g/dl RDW Standard Deviation 55.2 fL RDW Coefficient of Variation 19.5 % Platelet Count 182 K/uL Mean Platelet Volume 7.9 fL Sodium Level 138 mmol/L Potassium Level 3.9 mmol/L Chloride Level 107 mmol/L Carbon Dioxide Level 23 mmol/L Anion Gap 8.0 mmol/L Blood Urea Nitrogen 16 mg/dl Creatinine 1.07 mg/dl Est Creatinine Clear Calc Drug Dose 66.1 ml/min Estimated GFR () 77.2 Estimated GFR (Non- 66.6 BUN/Creatinine Ratio 14.6 Random Glucose 158 mg/dl Calcium Level 8.0 mg/dl Magnesium Level 1.7 mg/dl Test 08/20/17 11:03 Bedside Glucose 173 mg/dl Assessment and Plan 77 y/o male admitted on 08/18 with syncope and diarrhea. Syncope likely from dehydration, currently stable Acute on chronic diarrhea, stool incontinence--related to radiation/chemotherapy ? -C. diff negative -Stool studies for negative -Continue gentle IVF w/NSS + 20 KCl at 75 cc/hr -GI consult, -Has been on Imodium, which does not help, start cholestyramine 4 g p.o. every 12 C1 fracture, nasal bones fracture, Cervical collar was cleared by Dr. Matos, continue watch, so far no any sign of uncomfortable, compromise of neural muscular events history of rectal cancer, ; discuss with radiation oncology will hold radiation treatment today, request oncology consultation HTN, HLD, DM II, CKD stage III and BPH, condition stable continue current medication, follow-up renal function, continue insulin sliding scale Patient seems upset about my care, with the present of registered nurse, family meeting was carried out, with patient ,patient's friends and patient's are in the room. 1). he feels I did not see him yesterday but actually I did him. 2) He is very frustrated of going on diarrhea, I spent time explained the possible causes of his diarrhea, likely is chemo and radiation therapy for his rectal cancer, which causes the epithelial cell damage is in the lining of the got, which will takes time for the cells to recovery, which she will take 1 to 2 weeks, other possibilities could be because our infectious process, I told him good news for now is no any evidence of infectious caused his diarrhea. I explained to them we need to wait and watch, stepwise care and and supportive care,, was gave Imodium for the diarrhea, which does not help, now I will start cholestyramine p.o. for diarrhea, this about 2 different methods only to be started after after C. difficile is negative and stool culture so far negative. I explained the above to him for the care of these conditions need to be stepwide, patient seems understand and agree. 3) he is also not happy about not being seen by oncologist and radiation oncologist, I explained to him we did have talk with radiation oncologist, I agreed to have oncologist consulted, and have GI doctor consulted for better care of his condition. All questions addressed, patient so far is satisfied for now, I have requested GI doctor to see patient that if possible DVT prophylaxis Continue other supportive care Continued [facility] stay due to: multiple IV medications needed Discharge planning: home
--- NOTE | 2017-08-20 14:04 | GASTROINTESTINAL CONSULTATION ---
DATE OF CONSULTATION: 08/20/2017 REQUESTING PHYSICIAN: Dr. Delatorre. CHIEF COMPLAINT: Diarrhea. Mr. Bhakta is a 77-year-old white male known to me since earlier this year when he was diagnosed with colorectal cancer. The patient has currently been undergoing radiation and chemotherapy administration and developed an approximate 2-week period of increasing diarrhea, sometimes in excess of 12-15 stools a day. Initially, his stools were formed with some blood, this actually resolved but then became loose over the past 2 weeks. The patient denies any fever or chills, has not been on any recent antibiotics, and stool studies here have revealed no evidence for C. diff or routine bacterial organisms isolated. He denies any fevers or chills with these events. He did have a recent fall earlier this past week which left some facial abrasions. This was due to, he believes, probable dehydration from all of the loose stools he has been having. He reports that he has 5 more days left for his chemotherapy and radiation treatments. The patient does have colonic diverticulosis. PAST MEDICAL HISTORY: Includes recent diagnosis of colorectal cancer, he also has a history of urinary retention, hypertension, hyperlipidemia, type 2 diabetes, stage III chronic kidney disease, BPH. ALLERGIES: HE IS ALLERGIC TO ATORVASTATIN. HOME MEDICATIONS: Include Xeloda, vitamin D3, B12, diltiazem, glimepiride, iron, metformin, rosuvastatin, tamsulosin. SOCIAL HISTORY: The patient never smoked. Denies alcoholic beverages. Is single and retired. FAMILY HISTORY: Noncontributory. REVIEW OF SYSTEMS: Otherwise noncontributory based on 13-point exam except for mentioned above. On admission, the patient was afebrile at 36.6, blood pressure 159/82, heart rate 81, respirations 16, 97% on room air. On admission, white count 4.4, hemoglobin 9.8, MCV 87, platelets 186,000. INR 1.1. BUN and creatinine were 24 and 1.5, potassium 3.8, normal sodium. LFTs normal. Total bilirubin 0.6, direct 0.2, AST 15, ALT 18, alkaline phosphatase 65, albumin 2.9. Bedside troponin was undetectable. The patient had CT scans for the facial bones because of his fall. Chest x-ray showed cardiomegaly without any acute process. CT of the spine was unrevealing. Single view of the pelvis showed colonic diverticulosis. PHYSICAL EXAMINATION: GENERAL: Today, the patient is awake, alert and oriented x3. There are eschars on the face, predominantly on the forehead and on the right side of the nose. HEENT: Sclerae anicteric. NECK: Normal range of motion. HEAD: Normocephalic. EXTREMITIES: Show normal range of motion. SKIN: Warm, dry and intact. NEUROLOGIC: There are no focal neurologic defects. HEART: Normal S1, S2. LUNGS: Clear to auscultation without rales, rhonchi or wheezes. ABDOMEN: Soft, flat, nontender, nondistended, with good bowel sounds. No rebound or guarding. I do not appreciate hepatosplenomegaly. There is no evidence of ascites or shifting dullness. There is minimal focal tenderness in the region of the lower abdomen, around the suprapubic region, but no rebound or guarding appreciated. There are intermittent areas of stool noted in the colon, particularly on the right side of the abdomen, although some of this may also be on the left side as well. CURRENT MEDICATIONS: Include magnesium sulfate IV, Bacitracin ointment, Mag-Ox b.i.d., Lomotil q. 12 p.r.n., diltiazem 180 mg, B12 p.o., rosuvastatin, heparin DVT prophylaxis, tamsulosin, insulin sliding scale, Zofran p.r.n. IMPRESSION AND PLAN: The patient with significant amounts of stool output that were nonbloody, that have been present for the past couple of weeks. This coincides with the mid portion of his chemotherapy and radiation for rectal cancer. There is some stool noted on the lumbar spine series from admission, and although this may represent diarrhea associated with acute radiation proctitis, colitis or a response to chemotherapy (there is no evidence for infection presently), this may also represent a pattern of overflow incontinence as the patient does have diverticulosis and there are some aspects of stool in the colon. Although I believe the Questran powder is reasonable and would begin with a 1 packet of Questran Lite twice daily, this can be slowly titrated to effect, I would like to obtain an obstruction series today to check for any high volume of stool burden that may be creating an overflow diarrhea pattern. If so, he may actually benefit from some gentle laxative products that would help cleanse the colon and perhaps allow for normalization of his stools. He also takes other medications that might have an impact on this and is diabetic. He is on a calcium channel geoff as well. Will order a flat plate today and further recommendations once this is available. The patient has 5 more days left of chemotherapy and radiation. All questions answered. MTDD
--- NOTE | 2017-08-20 14:46 | DIAGNOSTIC IMAGING REPORT ---
ABDOMEN 2 VIEWS CLINICAL HISTORY: Obstipation. FINDINGS: Supine and decubitus abdominal radiographs are correlated with abdominal CT dated 06/17/2017. There is no bowel obstruction. Moderate to severe constipation is observed. No intraperitoneal free air is seen. Calcified phleboliths are noted in the pelvis. The heart is enlarged. The skeletal structures are osteopenic. Mild lumbosacral spondylosis is observed. IMPRESSION: Nonobstructed abdominal bowel gas pattern noting moderate to severe constipation. Electronically signed by: Richard Fields M.D. 08/20/2017 2:45 PM Dictated Date/Time: 08/20/2017 2:44 PM
[2017-08-20] MEDS ORDERED: NURSING VERBAL MED ORDER ONE ×2 (15:00→19:00)
--- NOTE | 2017-08-20 15:06 | Oncology Consultation ---
Oncology/Heme Consultation Date of Consultation: Aug 20, 2017. Attending Physician: Romario Delatorre MD, PhD Reason for Consultation: Diarrhea and history of rectal carcinoma History of Present Illness Mr. Bhakta is a 77-year-old gentleman that has been diagnosed as having adenocarcinoma of the rectum. He is undergoing neoadjuvant therapy with chemoradiotherapy. The chemotherapy portion of that treatment is Xeloda taken daily during radiation therapy days. He has been taking 1800 mg twice daily with radiation ongoing. He has 4 more treatments of radiation to go. He states that he started to develop diarrhea past week or 10 days and is just became progressively worse along with fatigue. He denied any blood in his stool. Denied any nausea or vomiting or fever or chills. He states that he became so fatigued that he passed out at home. He was admitted from the radiation therapy facility for evaluation. Past Medical/Surgical History Medical Problems: (1) Acute head injury Status: Acute (2) C1 cervical fracture Status: Acute (3) Low back pain Status: Acute (4) Nasal fracture Status: Acute (5) Syncope Status: Acute (6) Urinary retention Status: Acute (7) Urinary retention Status: Acute Social History Smoking Status: Never Smoker Smokeless Tobacco Use: No Alcohol Use: none Drug Use: none Marital Status: single Housing Status: lives with family Occupation Status: retired Allergies Coded Allergies: Atorvastatin (Verified Allergy, Unknown, SKIN REACTION, 06/21/17) Home Medications Scheduled Capecitabine (Xeloda), 1,800 MG PO Q12H Cholecalciferol (Vitamin D3), 2 TAB PO QAM Cyanocobalamin (Vitamin B-12), 2,000 MCG PO QAM Diltiazem Hcl Ext Rel (Tiazac), 180 MG PO QAM Glimepiride (Glimepiride), 1 MG PO QAM Iron Combinations (Iron Complex), 65 MG PO QAM Metformin Hcl (Glucophage Er), 750 MG PO HS Rosuvastatin Calcium (Crestor), 10 MG PO HS Tamsulosin Hcl (Flomax), 0.4 MG PO HS [glimiperide-piog], 1 TAB PO QAM Current Inpatient Medications Current Inpatient Medications Medications (Trade) Dose Ordered Sig/Omaira Route Start Time Stop Time Status Last Admin Dose Admin Heparin Sodium (Porcine) (Heparin Sq 5000 Unit/0.5ml) 5,000 unit Q12 SQ 08/18/17 21:00 09/17/17 20:59 08/20/17 07:31 5,000 UNIT Potassium Chloride/Sodium Chloride 1,000 ml @ 75 mls/hr [id number] IV 08/18/17 15:45 09/17/17 15:44 08/20/17 07:29 75 MLS/HR Acetaminophen (Tylenol Tab) 650 mg Q4H PRN PO 08/18/17 13:45 09/17/17 13:44 08/19/17 21:55 650 MG Al Hydrox/Mg Hydrox/Simethicone (Maalox Max Susp) 15 ml Q4H PRN PO 08/18/17 13:45 09/17/17 13:44 Magnesium Hydroxide (Milk Of Magnesia Susp) 30 ml Q12H PRN PO 08/18/17 13:45 09/17/17 13:44 Ondansetron HCl (Zofran Inj) 4 mg Q6H PRN IV 08/18/17 13:45 09/17/17 13:44 Polyethylene (Miralax Powder Packet) 17 gm DAILY PRN PO 08/18/17 13:45 09/17/17 13:44 Cholecalciferol (Vitamin D Tab) 2,000 inter.unit QAM PO 08/19/17 09:00 09/18/17 08:59 08/20/17 07:30 2,000 INTER.UNIT Cyanocobalamin (Vitamin B-12 Tab) 2,000 mcg QAM PO 08/19/17 09:00 09/18/17 08:59 08/20/17 07:30 2,000 MCG Diltiazem HCl (TIAzac CAP) 180 mg QAM PO 08/19/17 09:00 09/18/17 08:59 08/20/17 07:30 180 MG Rosuvastatin Calcium (Crestor Tab) 10 mg HS PO 08/18/17 21:00 09/17/17 20:59 08/19/17 20:49 10 MG Tamsulosin HCl (Flomax Cap) 0.4 mg HS PO 08/18/17 21:00 09/17/17 20:59 08/19/17 20:49 0.4 MG Glucose (Glucose 40% Gel) 15-30 GRAMS 15 GRAMS... UD PRN PO 08/18/17 13:45 09/17/17 13:44 Glucose (Glucose Chew Tab) 4-8 Tablets 4 Tabl... UD PRN PO 08/18/17 13:45 09/17/17 13:44 Dextrose (Dextrose 50% 50ML Syringe) 25-50ML OF 50% DW IV FOR... UD PRN IV 08/18/17 13:45 09/17/17 13:44 Glucagon (Glucagon Inj) 1 mg UD PRN SQ 08/18/17 13:45 09/17/17 13:44 Insulin Aspart (novoLOG ASPART) SLIDING SCALE G... ACHS SC 08/18/17 16:15 09/17/17 16:14 08/20/17 12:41 7 UNITS Miscellaneous (Iv Fluids Completed) 1 ea PRN PRN N/A 08/18/17 14:30 08/18/18 14:29 Miscellaneous Information (Order Awaiting Action) 1 ea Q4H N/A 08/18/17 16:00 09/17/17 15:59 Bacitracin (Bacitracin Oint) 1 appln DAILY EXT 08/20/17 09:00 08/24/17 08:59 08/20/17 07:29 1 APPLN Diphenoxylate HCl/ Atropine (Lomotil Tab) 1 tab Q12 PRN PO 08/19/17 12:45 09/18/17 12:44 08/20/17 04:22 1 TAB Magnesium Oxide (Mag-Ox Tab) 400 mg BID PO 08/20/17 09:00 08/23/17 08:59 08/20/17 09:40 400 MG Cholestyramine Resin (Questran Powder Light) 4 gm BID@,22 PO 08/20/17 22:00 08/21/17 21:59 Review of Systems Constitutional: Negative for night sweats, or fever. He states he has lost about 9 pounds in the past couple of months Eyes: Negative for event change of vision ENT: Negative for epistaxis, nasal discharge, sore throat, or deafness Cardiovascular: Negative for chest pain, palpitations, dizziness, diaphoresis Respiratory: Negative for new shortness of breath,hemoptysis, or purulent cough Gastrointestinal: Negative for diarrhea, hematemesis, melena, nausea, vomiting , or dyspepsia Integumentary (skin): Negative for rash or jaundice discoloration Genitourinary: Negative for urinary frequency, hematuria, or dysuria Neurological: Negative for weakness, seizure activity, the syncopal episode was unwitnessed. He is now being evaluated for possible cervical spine fracture after his fall. Lymphatic/Hematologic: Negative for petechiae, bleeding or new adenopathy Musculoskeletal: Negative for new joint or back pain Allergic/Immunologic: Negative for unusual rash or pruritis. Physical Exam Date Time Temp Pulse Resp B/P (MAP) Pulse Ox O2 Delivery O2 Flow Rate FiO2 08/20/17 13:56 36.6 79 20 96 08/20/17 12:00 Room Air 08/20/17 11:26 36.6 79 20 179/71 (107) 96 Room Air 08/20/17 08:00 Room Air 08/20/17 07:26 36.5 73 22 148/88 (108) 94 Room Air 08/20/17 04:00 Room Air 08/20/17 03:38 36.4 75 20 139/67 (91) 94 Room Air 08/20/17 00:13 36.5 68 17 122/61 (81) 96 Room Air 08/20/17 00:00 Room Air 08/19/17 20:00 Room Air 08/19/17 19:21 36.3 76 18 173/75 (107) 98 Room Air 08/19/17 16:00 Room Air 08/19/17 15:29 36.5 68 18 156/70 (98) 95 Room Air Constitutional: vitals are stable. Eyes: Eyes are ARMANDO EOMI without conjuctival erythema or icterus. ENT: External examination was negative for masses. Neck: Negative for masses or palpable thyromegaly Respiratory: Lung sounds were generally clear bilaterally Cardiovascular: Heart was RRR without significant murmur, gallops aoe rubs Gastrointestinal: No palpable hepatic or splenomegaly. The abdomen was soft with normal bowel sounds. Lymphatic system: there was no palpable peripheral lymphadenopathy Musculoskeletal System: The musculoskeletal system seemed concordant with age. Skin: The skin was negative for jaundice. He has facial abrasions from the fall Neurologic exam: The exam was negative for any focal findings. Deep tendon reflexes were equal and symmetrical. Psychiatric exam: Was essentially negative with normal mood and effect. Extremities: Negative for edema erythema Laboratory Results Last 24 Hours Test 08/19/17 16:12 08/19/17 20:23 08/20/17 06:23 08/20/17 06:58 Bedside Glucose 167 mg/dl 177 mg/dl 159 mg/dl White Blood Count 3.19 K/uL Red Blood Count 3.22 M/uL Hemoglobin 9.2 g/dL Hematocrit 28.2 % Mean Corpuscular Volume 87.6 fL Mean Corpuscular Hemoglobin 28.6 pg Mean Corpuscular Hemoglobin Concent 32.6 g/dl RDW Standard Deviation 55.2 fL RDW Coefficient of Variation 19.5 % Platelet Count 182 K/uL Mean Platelet Volume 7.9 fL Sodium Level 138 mmol/L Potassium Level 3.9 mmol/L Chloride Level 107 mmol/L Carbon Dioxide Level 23 mmol/L Anion Gap 8.0 mmol/L Blood Urea Nitrogen 16 mg/dl Creatinine 1.07 mg/dl Est Creatinine Clear Calc Drug Dose 66.1 ml/min Estimated GFR () 77.2 Estimated GFR (Non- 66.6 BUN/Creatinine Ratio 14.6 Random Glucose 158 mg/dl Calcium Level 8.0 mg/dl Magnesium Level 1.7 mg/dl Test 08/20/17 11:03 Bedside Glucose 173 mg/dl Assessment & Plan Pronounced diarrhea. He has been taking Xeloda and radiation therapy as neoadjuvant therapy for rectal cancer. Xeloda is given on the days of radiation therapy. The diarrhea undoubtedly is secondary to our therapy. Stool is negative for C. difficile toxin. I would recommend Imodium 1 pill every 2 hours and 2 pills every 4 hours during sleeping hours. When 12 hours of pass and there is not been any diarrhea than the Imodium could be 1-2 pills every 6 hours as needed. He is already on every 12 hours Lomotil. This was reviewed with nursing staff. Blood work is acceptable At this juncture in this late in his therapy I would withhold further Xeloda. We will follow along with you.
[2017-08-20] MEDS: LOPERAMIDE HCL 2 MG CAP PO PRN ×4 (15:58→21:53)
[2017-08-20] MEDS: ROSUVASTATIN CALCIUM 10 MG TAB PO SCH (20:38)
[2017-08-20] MEDS: TAMSULOSIN HCL 0.4 MG CAP PO SCH (20:38)
[2017-08-20] MEDS: CHOLESTYRAMINE LIGHT 4 GM PKT PO SCH (21:44)
[2017-08-20] MEDS ORDERED: CHOLESTYRAMINE LIGHT 4 GM PKT PO SCH (22:00)
[2017-08-20] MEDS: ACETAMINOPHEN 325 MG TAB PO PRN (23:23)
[2017-08-21] MEDS: LOPERAMIDE HCL 2 MG CAP PO PRN ×4 (00:15→12:25)
[2017-08-21 03:00] VITALS: BP 160/63; PULSE 46; TEMP 36.4; O2SAT 97
[2017-08-21 07:48] LABS: CREATININE 1.14 mg/dl (0.60-1.40); POTASSIUM 4.1 mmol/L (3.5-5.1)
[2017-08-21 07:49] LABS: PHOSPHORUS 2.5 mg/dl (2.5-4.9)
[2017-08-21 07:57] VITALS: BP 179/76; PULSE 87; TEMP 36.5; O2SAT 97
[2017-08-21] MEDS ORDERED: MAGNESIUM SULFATE 1GM / D5W 1 GM in PREMIXED IN D5W 100 ML IV STA (08:46)
[2017-08-21] MEDS: BACITRACIN OINT 15 GM TUBE EXT SCH (08:50)
[2017-08-21] MEDS: CHOLECALCIFEROL 1000 INTER.UNIT TAB PO SCH (08:51)
[2017-08-21] MEDS: DILTIAZEM HCL (TIAzac) 180 MG CAPCR PO SCH (08:52)
[2017-08-21] MEDS: MAGNESIUM OXIDE 400 MG TAB PO SCH ×2 (08:52→20:56)
[2017-08-21] MEDS: CYANOCOBALAMIN 500 MCG TAB (VIT B-12) PO SCH (08:53)
[2017-08-21] MEDS: INSULIN ASPART 100 UNITS/ML 3 ML PEN SC SCH ×4 (08:55→20:57)
[2017-08-21] MEDS: HEPARIN SOD 5000 UNIT/0.5 ML CARP SQ SCH ×2 (09:00→21:02)
[2017-08-21 09:12] LABS: HEMATOCRIT 32.8 % (42-52); HEMOGLOBIN 10.9 g/dL (14.0-18.0); MEAN CELL VOLUME 86.8 fL (80-100); MEAN CORPUSCULAR HEMOGLOBIN 28.8 pg (25-34); MEAN CORPUSCULAR HGB CONC 33.2 g/dl (32-36); MEAN PLATELET VOLUME 8.2 fL (7.4-10.4); PLATELET COUNT 213 K/uL (130-400); RED CELL DISTRIBUTION WIDTH CV 19.9 % (11.5-14.5); RED CELL DISTRIBUTION WIDTH SD 56.4 fL (36.4-46.3); WHITE BLOOD COUNT 4.61 K/uL (4.8-10.8)
[2017-08-21] MEDS: DIPHENOXYLATE/ATROPINE 2.5/0.025MG TAB PO PRN (09:14)
[2017-08-21] MEDS: CHOLESTYRAMINE LIGHT 4 GM PKT PO SCH (10:00)
[2017-08-21] MEDS: NSS + 20MEQ KCL 1000ML 1,000 ML IV SCH ×2 (10:15→23:32)
[2017-08-21 11:48] VITALS: BP 166/88; PULSE 78; O2SAT 98
[2017-08-21 11:49] VITALS: BP 177/78; PULSE 66; TEMP 36.5; O2SAT 98
--- NOTE | 2017-08-21 12:38 | GASTROENTEROLOGY PROGRESS NOTE ---
DATE: 08/21/2017 Chart reviewed. The patient examined. The patient had a hard stool today. Obstruction series yesterday did not show evidence of obstruction; however, there was moderate to severe stool retention noted on the study. He is on Imodium as this raises the possibility of an overflow diarrhea as a source of the patient's symptoms. MEDICATIONS: Include cholestyramine resin that was started yesterday twice daily, Imodium p.r.n., mag ox, Lomotil, tamsulosin, diltiazem, insulin, and Zofran. LABORATORY STUDIES: Today, white count 4.6 and hemoglobin 10.9, which is up from 9.2. Serum chemistry: Potassium 4.1, BUN and creatinine are 15 and 1.1, phosphorous 2.7, and magnesium is slightly low at 1.7. REVIEW OF SYSTEMS: Otherwise noncontributory based on 13-point exam except for mentioned above. ALLERGIES: ATORVASTATIN. PHYSICAL EXAMINATION: VITAL SIGNS: Today blood pressure 179/76, heart rate 87, respirations 18, 97% on room air, and afebrile at 36.5. GENERAL: The patient is awake, alert and oriented x3. HEENT: There are abrasions on the face from his recent fall outside before presenting to the ER. Sclerae are anicteric. Conjunctiva moist. Oral mucosa moist. HEART: Normal S1 and S2. ABDOMEN: Soft and nontender with positive bowel sounds. Trace edema bilaterally. RECTAL: Deferred. There is no rebound or guarding. LUNGS: Clear to auscultation. IMPRESSION AND PLAN: Features of significant retained stool in the colon, which may represent overflow diarrhea as a source of his frequent loose stools. We will discuss with Dr. Delatorre; however, it may be advisable to reduce or eliminate the Imodium and Questran initially and begin a laxative regimen that may help first empty the stool and hopefully restore some of his usual stool pattern. Ultimately, high fiber diet may be advantageous for him, particularly as he is nearing end of his radiation therapy and hopefully any acute inflammatory injury from it. Therefore, would consider holding the Questran, Lomotil, and Imodium and consider either bottle of magnesium citrate 5 ounces in 5 ounces of water, followed by three 8 ounce glass of water. This can be repeated later in the afternoon and again tomorrow and monitor for effect. All questions answered.
--- NOTE | 2017-08-21 12:55 | Hematology/Oncology Prog Note ---
Hematology/Onc Progress Note Date of Service Aug 21, 2017. Diagnoses Diarrhea secondary to therapy Rectal carcinoma Medications Medications Administered Medications (Trade) Dose Ordered Sig/Omaira Route Start Time Stop Time Status Last Admin Dose Admin Sodium Chloride 500 ml @ 999 mls/hr Q31M STAT IV 08/18/17 10:29 08/18/17 10:59 DC 08/18/17 11:28 999 MLS/HR Heparin Sodium (Porcine) (Heparin Sq 5000 Unit/0.5ml) 5,000 unit Q12 SQ 08/18/17 21:00 09/17/17 20:59 08/21/17 09:00 5,000 UNIT Potassium Chloride/Sodium Chloride 1,000 ml @ 75 mls/hr [id number] IV 08/18/17 15:45 09/17/17 15:44 08/21/17 10:15 75 MLS/HR Acetaminophen (Tylenol Tab) 650 mg Q4H PRN PO 08/18/17 13:45 09/17/17 13:44 08/20/17 23:23 650 MG Cholecalciferol (Vitamin D Tab) 2,000 inter.unit QAM PO 08/19/17 09:00 09/18/17 08:59 08/21/17 08:51 2,000 INTER.UNIT Cyanocobalamin (Vitamin B-12 Tab) 2,000 mcg QAM PO 08/19/17 09:00 09/18/17 08:59 08/21/17 08:53 2,000 MCG Diltiazem HCl (TIAzac CAP) 180 mg QAM PO 08/19/17 09:00 09/18/17 08:59 08/21/17 08:52 180 MG Rosuvastatin Calcium (Crestor Tab) 10 mg HS PO 08/18/17 21:00 09/17/17 20:59 08/20/17 20:38 10 MG Tamsulosin HCl (Flomax Cap) 0.4 mg HS PO 08/18/17 21:00 09/17/17 20:59 08/20/17 20:38 0.4 MG Insulin Aspart (novoLOG ASPART) SLIDING SCALE G... ACHS SC 08/18/17 16:15 09/17/17 16:14 08/20/17 21:43 4 UNITS Bacitracin (Bacitracin Oint) 1 appln DAILY EXT 3/31/18 09:00 08/24/17 08:59 08/21/17 08:50 1 APPLN Diphenoxylate HCl/ Atropine (Lomotil Tab) 1 tab NOW ONCE PO 08/19/17 12:45 08/19/17 12:49 DC 08/19/17 13:47 1 TAB Diphenoxylate HCl/ Atropine (Lomotil Tab) 1 tab Q12 PRN PO 08/19/17 12:45 09/18/17 12:44 08/21/17 09:14 1 TAB Magnesium Oxide (Mag-Ox Tab) 400 mg BID PO 08/20/17 09:00 08/23/17 08:59 08/21/17 08:52 400 MG Magnesium Sulfate 1 gm/Prmx 100 ml @ 100 mls/hr NOW ONCE IV 08/20/17 12:30 08/20/17 13:29 DC 08/20/17 13:15 100 MLS/HR Cholestyramine Resin (Questran Powder Light) 4 gm BID@10,22 PO 08/20/17 22:00 08/21/17 21:59 08/20/17 21:44 4 GM Loperamide HCl (Imodium Cap) 2 mg UD PRN PO 08/20/17 15:15 08/20/17 19:06 DC 08/20/17 18:21 2 MG Loperamide HCl (Imodium Cap) SEE DOSING INSTRUCTIONS MAX:... UD PRN PO 08/20/17 19:15 09/19/17 15:14 08/21/17 12:25 2 MG Magnesium Sulfate 1 gm/Prmx 100 ml @ 100 mls/hr NOW STAT IV 08/21/17 08:46 08/21/17 09:45 DC 08/21/17 09:02 100 MLS/HR Subjective Looks more comfortable however he states that the frequency of stooling is about the same. Denies any fever or chills or new pain. Review of Systems: Constitutional: Negative for night sweats, or fever Eyes: Negative for event change of vision ENT: Negative for epistaxis, nasal discharge, sore throat, or deafness Cardiovascular: Negative for chest pain, palpitations, dizziness, diaphoresis Respiratory: Negative for new shortness of breath,hemoptysis, or purulent cough Gastrointestinal: Negative for hematemesis, melena, nausea, vomiting, or dyspepsia Integumentary (skin): Negative for rash or jaundice discoloration Neurological: Negative for weakness, seizure activity, headache, or dizziness Lymphatic/Hematologic: Negative for petechiae, bleeding or new adenopathy Musculoskeletal: Negative for new joint or back pain Allergic/Immunologic: Negative for unusual rash or pruritis. Vital Signs Vital Signs Past 12 Hours Date Time Temp Pulse Resp B/P (MAP) Pulse Ox O2 Delivery O2 Flow Rate FiO2 08/21/17 11:49 36.5 66 18 177/78 (111) 98 Room Air 08/21/17 11:48 78 98 08/21/17 09:00 Room Air 08/21/17 07:57 36.5 87 18 179/76 (110) 97 Room Air 08/21/17 03:00 36.4 46 20 160/63 (95) 97 Room Air Physical Exam Constitutional: vitals are stable. Eyes: Eyes are ARMANDO EOMI without conjuctival erythema or icterus. ENT: External examination was negative for masses. Facial abrasions as noted yesterday as a result of his syncopal episode. Neck: Negative for masses or palpable thyromegaly Respiratory: Lung sounds were generally clear bilaterally Cardiovascular: Heart was RRR without significant murmur, gallops aoe rubs Gastrointestinal: No palpable hepatic or splenomegaly. The abdomen was mildly distended. It is generally soft. Bowel sounds were considered normal Lymphatic system: there was no palpable peripheral lymphadenopathy Musculoskeletal System: The musculoskeletal system seemed concordant with age. Skin: The skin was negative for jaundice. Neurologic exam: The exam was negative for any focal findings. Deep tendon reflexes were equal and symmetrical. Psychiatric exam: Was essentially negative with normal mood and effect. Laboratory Last 24 Hours Test 08/20/17 16:24 08/20/17 20:23 08/21/17 06:59 08/21/17 07:37 Bedside Glucose 168 mg/dl 242 mg/dl 170 mg/dl Sodium Level 137 mmol/L Potassium Level 4.1 mmol/L Chloride Level 108 mmol/L Carbon Dioxide Level 22 mmol/L Anion Gap 8.0 mmol/L Blood Urea Nitrogen 15 mg/dl Creatinine 1.14 mg/dl Est Creatinine Clear Calc Drug Dose 62.1 ml/min Estimated GFR () 71.5 Estimated GFR (Non- 61.7 BUN/Creatinine Ratio 13.4 Random Glucose 160 mg/dl Calcium Level 8.0 mg/dl Phosphorus Level 2.5 mg/dl Magnesium Level 1.7 mg/dl Test 08/21/17 09:03 08/21/17 11:52 White Blood Count 4.61 K/uL Red Blood Count 3.78 M/uL Hemoglobin 10.9 g/dL Hematocrit 32.8 % Mean Corpuscular Volume 86.8 fL Mean Corpuscular Hemoglobin 28.8 pg Mean Corpuscular Hemoglobin Concent 33.2 g/dl RDW Standard Deviation 56.4 fL RDW Coefficient of Variation 19.9 % Platelet Count 213 K/uL Mean Platelet Volume 8.2 fL Bedside Glucose 185 mg/dl Assessment & Plan He appears more comfortable although he states the diarrhea continues. Would continue the Imodium as outlined yesterday. It will take usually 5-7 days post Xeloda to finally get some relief from the diarrhea. Supportive care continue
--- NOTE | 2017-08-21 14:36 | Progress Note ---
Subjective Date of Service: Aug 21, 2017. Subjective Pt evaluation today including: conversation w/ patient, conversation w/ family , physical exam, chart review, lab review, review of studies, review of inpatient medication list Voiding: no voiding problems Diarrhea may snoring down, has some consistent formed stool, generally eating okay no nausea vomiting, denies abdominal pain denies fever and chills Problem List Medical Problems: (1) Acute head injury Status: Acute (2) C1 cervical fracture Status: Acute (3) Low back pain Status: Acute (4) Nasal fracture Status: Acute (5) Syncope Status: Acute (6) Urinary retention Status: Acute (7) Urinary retention Status: Acute Review of Systems Constitutional: No fever, No chills, No sweats, No weight loss, No weakness, No fatigue, No problem reported Eyes: No worsening of vision, No eye pain, No redness, No discharge, No diplopia ENT: No hearing loss, No unusual epistaxis, No nasal symptoms, No sore throat, No tinnitus, No dental problems, No trouble swallowing Respiratory: No cough, No sputum, No wheezing, No shortness of breath, No dyspnea on exertion, No dyspnea at rest, No hemoptysis Cardiac: No chest pain, No orthopnea, No PND, No edema, No claudication, No palpitations Abdomen: + diarrhea, No pain, No nausea, No vomiting, No constipation Musculoskeletal: No joint pain, No muscle pain, No swelling, No calf pain Male : No dysuria, No urinary frequency, No incontinence, No nocturia more than once/night, No slowing stream, No hematuria Neurologic: No memory loss, No paralysis, No weakness, No numbness/tingling, No vertigo, No balance problems Psychiatric: No depression symptoms, No anhedonism, No anxiety, No insomnia, No substance abuse Heme: No abnormal bleeding/bruising, No clotting problems, No swollen lymph nodes, No night sweats Endo: No fatigue, No excessive thirst, No excessive urination Skin: + problem reported (Frontal scalp and upper face has some skin scratches is better), No rash, No itch, No new/changing skin lesions, No color change, No bleeding Objective Vital Signs Date Time Temp Pulse Resp B/P (MAP) Pulse Ox O2 Delivery O2 Flow Rate FiO2 08/21/17 11:49 36.5 66 18 177/78 (111) 98 Room Air 08/21/17 11:48 78 98 08/21/17 09:00 Room Air 08/21/17 07:57 36.5 87 18 179/76 (110) 97 Room Air 08/21/17 03:00 36.4 46 20 160/63 (95) 97 Room Air 08/21/17 00:00 Room Air 08/20/17 23:05 36.4 75 20 153/83 (106) 95 Room Air 08/20/17 20:10 Room Air 08/20/17 20:00 36.6 79 20 96 Room Air 08/20/17 17:32 Room Air 08/20/17 16:10 36.8 75 20 147/66 (93) 96 Room Air Physical Exam General Appearance: WD/WN, no apparent distress, + obese Eyes: normal inspection, PERRL, EOMI, sclerae normal ENT: normal ENT inspection, hearing grossly normal, pharynx normal Neck: supple, no adenopathy, thyroid normal, no JVD, no carotid bruits, trachea midline Respiratory/Chest: chest non-tender, normal breath sounds, no respiratory distress, no accessory muscle use, + decreased breath sounds Cardiovascular: regular rate, rhythm, no gallop, no JVD, no murmur, + pertinent finding (2+ edema) Abdomen: normal bowel sounds, non tender, soft, no organomegaly, no pulsatile mass Extremities: normal range of motion, non-tender, normal inspection, no pedal edema, no calf tenderness, normal capillary refill, pelvis stable, + swelling Neurologic/Psychiatric: aerotriangulation specialist II-XII nml as tested, no motor/sensory deficits, alert, normal mood/affect, oriented x 3 Skin: normal color, warm/dry, no rash Lymphatic: no adenopathy Laboratory Results Last 24 Hours Test 08/20/17 16:24 08/20/17 20:23 08/21/17 06:59 08/21/17 07:37 Bedside Glucose 168 mg/dl 242 mg/dl 170 mg/dl Sodium Level 137 mmol/L Potassium Level 4.1 mmol/L Chloride Level 108 mmol/L Carbon Dioxide Level 22 mmol/L Anion Gap 8.0 mmol/L Blood Urea Nitrogen 15 mg/dl Creatinine 1.14 mg/dl Est Creatinine Clear Calc Drug Dose 62.1 ml/min Estimated GFR () 71.5 Estimated GFR (Non- 61.7 BUN/Creatinine Ratio 13.4 Random Glucose 160 mg/dl Calcium Level 8.0 mg/dl Phosphorus Level 2.5 mg/dl Magnesium Level 1.7 mg/dl Test 08/21/17 09:03 08/21/17 11:52 White Blood Count 4.61 K/uL Red Blood Count 3.78 M/uL Hemoglobin 10.9 g/dL Hematocrit 32.8 % Mean Corpuscular Volume 86.8 fL Mean Corpuscular Hemoglobin 28.8 pg Mean Corpuscular Hemoglobin Concent 33.2 g/dl RDW Standard Deviation 56.4 fL RDW Coefficient of Variation 19.9 % Platelet Count 213 K/uL Mean Platelet Volume 8.2 fL Bedside Glucose 185 mg/dl Assessment and Plan 77 y/o male admitted on 08/18 with syncope and diarrhea. Syncope likely from dehydration, currently stable Acute on chronic diarrhea, stool incontinence--related to radiation/chemotherapy ? -C. diff negative -Stool studies for negative -Continue gentle IVF w/NSS + 20 KCl at 75 cc/hr -GI consult, discussed with Dr. Keene, KUB has features of significant retained stool in the colon, which may represent overflow diarrhea as a source of his frequent loose stools, hold Imodium and Questran to help first empty the stool and hopefully restore some of his usual stool pattern. He will need high fiber diet C1 fracture, nasal bones fracture, Cervical collar was cleared by Dr. Matos, continue watch, so far no any sign of uncomfortable or compromise of neural muscular events history of rectal cancer, ; discuss with radiation oncology will hold radiation treatment today, request oncology consultation HTN, HLD, DM II, CKD stage III and BPH, condition stable continue current medication, follow-up renal function, continue insulin sliding scale Patient apologies today to me saying he was seen by me the day before Continued [facility] stay due to: multiple IV medications needed Discharge planning: home
[2017-08-21] MEDS ORDERED: MAGNESIUM CITRATE 296 ML/BTL PO ONE (15:45)
[2017-08-21 16:08] VITALS: BP 152/80; PULSE 72; TEMP 36.5; O2SAT 98
[2017-08-21] MEDS: MAGNESIUM CITRATE 296 ML/BTL PO SCH ×2 (17:01→20:58)
[2017-08-21 19:49] VITALS: BP 162/74; PULSE 69; TEMP 36.8; O2SAT 96
[2017-08-21] MEDS: ROSUVASTATIN CALCIUM 10 MG TAB PO SCH (20:55)
[2017-08-21] MEDS: TAMSULOSIN HCL 0.4 MG CAP PO SCH (20:56)
[2017-08-21] MEDS ORDERED: MoRPHine SULFATE 4 MG/ML 1 ML CARP\\VIAL IV STA (23:34)
[2017-08-21] MEDS ORDERED: MoRPHine SULFATE 2 MG/ML CARP IV PRN (23:45)
[2017-08-22 04:16] VITALS: BP 172/72; PULSE 87; TEMP 36.6; O2SAT 95
[2017-08-22] MEDS: INSULIN ASPART 100 UNITS/ML 3 ML PEN SC SCH ×4 (06:30→20:46)
[2017-08-22 08:18] VITALS: BP 155/67; PULSE 93; TEMP 36.5; O2SAT 96
[2017-08-22 08:31] LABS: CREATININE 1.05 mg/dl (0.60-1.40); POTASSIUM 4.3 mmol/L (3.5-5.1)
[2017-08-22 08:32] LABS: PHOSPHORUS 3.1 mg/dl (2.5-4.9)
--- NOTE | 2017-08-22 08:39 | DIAGNOSTIC IMAGING REPORT ---
KUB HISTORY: constipation, ileus COMPARISON: Abdominal series 08/20/2017. FINDINGS: Distended and gas-filled colon has progressed. The cecum is distended up to 12.6 cm. There are few mildly dilated gas-filled loops of small bowel within the abdomen. The overall amount of stool within the colon has decreased. No renal calculi. No ureteral calculi. No pneumoperitoneum or pneumatosis. IMPRESSION: Progressive distention of the colon as described above with a few mildly dilated gas-filled loops of small bowel. Findings favor an ileus. The overall amount of stool within the colon has decreased. Electronically signed by: Tadeo Mcneill M.D. 08/22/2017 8:38 AM Dictated Date/Time: 08/22/2017 8:31 AM
[2017-08-22] MEDS: HEPARIN SOD 5000 UNIT/0.5 ML CARP SQ SCH ×2 (08:55→21:27)
[2017-08-22] MEDS: CHOLECALCIFEROL 1000 INTER.UNIT TAB PO SCH (08:57)
[2017-08-22] MEDS: CYANOCOBALAMIN 500 MCG TAB (VIT B-12) PO SCH (08:57)
[2017-08-22] MEDS: MAGNESIUM OXIDE 400 MG TAB PO SCH ×2 (08:58→21:24)
[2017-08-22] MEDS: BACITRACIN OINT 15 GM TUBE EXT SCH (08:58)
[2017-08-22] MEDS: DILTIAZEM HCL (TIAzac) 180 MG CAPCR PO SCH (08:58)
[2017-08-22] MEDS: LISINOPRIL 5 MG TAB PO SCH (09:14)
--- NOTE | 2017-08-22 10:15 | Radiation Oncology Progress Nt ---
Radiation Oncology Progress Nt Date of Service Date of Service: Aug 22, 2017. Reason For Admission Dehydration/Poor Oral Intake Diarrhea Requesting Physician Dr. 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 Bhakta is a 77 year old male currently under treatment for rectal cancer. He has been receiving xeloda and daily radiation therapy. Last week, he was dehydrated, weak and fell and hit his nose. He was sent by our department to the ED and was admitted. Dr. Marks and Dr. Keene have also seen the patient and the overall consensus is that the diarrhea is treatment-related and most likely from chemotherapy. Radiation Therapy Has patient started Radiation: Yes Number of Treatments Received: 20 Number of Treatments Planned: 25 Current Chemotherapy: Yes Type of Chemotherapy: Xeloda (On Hold) Objective Vital Signs Date Time Temp Pulse Resp B/P (MAP) Pulse Ox O2 Delivery O2 Flow Rate FiO2 08/22/17 08:18 36.5 93 18 155/67 (96) 96 08/22/17 04:16 36.6 87 20 172/72 (105) 95 Room Air 08/22/17 00:10 Room Air 08/21/17 19:50 Room Air 08/21/17 19:49 36.8 69 20 162/74 (103) 96 Room Air 08/21/17 16:08 36.5 72 18 152/80 (104) 98 Room Air 08/21/17 15:06 Room Air 08/21/17 11:49 36.5 66 18 177/78 (111) 98 Room Air 08/21/17 11:48 78 98 Physical Exam General Appearance: + mild distress, + pertinent finding (diaphoretic) Neurologic/Psychiatric: waist fitter II-XII nml as tested, alert, oriented x 3 Skin: + pallor Laboratory Results Last 24 Hours Test 08/21/17 11:52 08/21/17 16:22 08/21/17 20:22 08/22/17 07:44 Bedside Glucose 185 mg/dl 160 mg/dl 157 mg/dl Sodium Level 136 mmol/L Potassium Level 4.3 mmol/L Chloride Level 105 mmol/L Carbon Dioxide Level 21 mmol/L Anion Gap 11.0 mmol/L Blood Urea Nitrogen 14 mg/dl Creatinine 1.05 mg/dl Est Creatinine Clear Calc Drug Dose 68.0 ml/min Estimated GFR () 79.0 Estimated GFR (Non- 68.1 BUN/Creatinine Ratio 13.0 Random Glucose 144 mg/dl Calcium Level 8.0 mg/dl Phosphorus Level 3.1 mg/dl Magnesium Level 2.1 mg/dl Test 08/22/17 07:59 Bedside Glucose 142 mg/dl Assessment and Plan We have discussed the patients care with the primary hospital service. The patients reason for admission is most likely related treatment for his rectal cancer and more likely related to chemotherapy based on the frequency of diarrhea he is experiencing. We will hold radiation therapy until the patient's condition improves. Please call us with any further questions or concerns.
[2017-08-22 11:33] VITALS: BP 153/73; PULSE 69; TEMP 36.4; O2SAT 94
[2017-08-22] MEDS: NSS + 20MEQ KCL 1000ML 1,000 ML IV SCH (12:39)
[2017-08-22] MEDS: ACETAMINOPHEN 325 MG TAB PO PRN ×3 (12:57→23:12)
--- NOTE | 2017-08-22 14:19 | Progress Note ---
Subjective Date of Service: Aug 22, 2017. Subjective Pt evaluation today including: conversation w/ patient, physical exam, chart review, lab review, review of studies, review of inpatient medication list Had more than 20 times bowel movement yesterday, this morning so far only once , patient is eating lunch, report right flank pain from his fall, Problem List Medical Problems: (1) Acute head injury Status: Acute (2) C1 cervical fracture Status: Acute (3) Low back pain Status: Acute (4) Nasal fracture Status: Acute (5) Syncope Status: Acute (6) Urinary retention Status: Acute (7) Urinary retention Status: Acute Review of Systems Constitutional: + weakness, + fatigue, No fever, No chills, No sweats, No weight loss, No problem reported Eyes: No worsening of vision, No eye pain, No redness, No discharge, No diplopia ENT: No hearing loss, No unusual epistaxis, No nasal symptoms, No sore throat, No tinnitus, No dental problems, No trouble swallowing Respiratory: No cough, No sputum, No wheezing, No shortness of breath, No dyspnea on exertion, No dyspnea at rest, No hemoptysis Cardiac: No chest pain, No orthopnea, No PND, No edema, No claudication, No palpitations Abdomen: + diarrhea, No pain, No nausea, No vomiting, No constipation Musculoskeletal: + joint pain, No muscle pain, No swelling, No calf pain Male : No dysuria, No urinary frequency, No incontinence, No nocturia more than once/night, No slowing stream, No hematuria Neurologic: No memory loss, No paralysis, No weakness, No numbness/tingling, No vertigo, No balance problems Psychiatric: No depression symptoms, No anhedonism, No anxiety, No insomnia, No substance abuse Heme: No abnormal bleeding/bruising, No clotting problems, No swollen lymph nodes, No night sweats Endo: No fatigue, No excessive thirst, No excessive urination Skin: No rash, No itch, No new/changing skin lesions, No color change, No bleeding Objective Vital Signs Date Time Temp Pulse Resp B/P (MAP) Pulse Ox O2 Delivery O2 Flow Rate FiO2 08/22/17 11:33 36.4 69 18 153/73 (99) 94 08/22/17 08:18 36.5 93 18 155/67 (96) 96 08/22/17 08:00 Room Air 08/22/17 04:16 36.6 87 20 172/72 (105) 95 Room Air 08/22/17 00:10 Room Air 08/21/17 19:50 Room Air 08/21/17 19:49 36.8 69 20 162/74 (103) 96 Room Air 08/21/17 16:08 36.5 72 18 152/80 (104) 98 Room Air 08/21/17 15:06 Room Air Physical Exam General Appearance: WD/WN, no apparent distress, + obese Eyes: normal inspection, PERRL, EOMI, sclerae normal ENT: normal ENT inspection, hearing grossly normal, pharynx normal Neck: supple, no adenopathy, thyroid normal, no JVD, no carotid bruits, trachea midline Respiratory/Chest: chest non-tender, no respiratory distress, no accessory muscle use, + decreased breath sounds Cardiovascular: regular rate, rhythm, no edema, no gallop, no JVD, no murmur Abdomen: soft, no organomegaly, no pulsatile mass, + distended (Minimal) Extremities: normal range of motion, non-tender, normal inspection, no pedal edema, no calf tenderness, normal capillary refill, pelvis stable Neurologic/Psychiatric: confidential investigator II-XII nml as tested, no motor/sensory deficits, alert, normal mood/affect, oriented x 3 Skin: normal color, warm/dry, no rash, + pertinent finding (Anterior forehead skin breakdown which is better) Lymphatic: no adenopathy Laboratory Results Last 24 Hours Test 08/21/17 16:22 08/21/17 20:22 08/22/17 07:44 08/22/17 07:59 Bedside Glucose 160 mg/dl 157 mg/dl 142 mg/dl Sodium Level 136 mmol/L Potassium Level 4.3 mmol/L Chloride Level 105 mmol/L Carbon Dioxide Level 21 mmol/L Anion Gap 11.0 mmol/L Blood Urea Nitrogen 14 mg/dl Creatinine 1.05 mg/dl Est Creatinine Clear Calc Drug Dose 68.0 ml/min Estimated GFR () 79.0 Estimated GFR (Non- 68.1 BUN/Creatinine Ratio 13.0 Random Glucose 144 mg/dl Calcium Level 8.0 mg/dl Phosphorus Level 3.1 mg/dl Magnesium Level 2.1 mg/dl Test 08/22/17 11:53 Bedside Glucose 180 mg/dl Assessment and Plan 77 y/o male admitted on 08/18 with syncope and diarrhea. Syncope likely from dehydration, currently stable Acute on chronic diarrhea, stool incontinence--related to radiation/chemotherapy ? Or possible overflow diarrhea -C. diff negative -Stool studies for negative -Continue gentle IVF w/NSS + 20 KCl at 75 cc/hr -GI consult, discussed with Dr. Keene, KUB has features of significant retained stool in the colon, which may represent overflow diarrhea as a source of his frequent loose stools, Yesterday we hold Imodium and Questran, gave him mag citrate, to help first empty the stool , and KUB was reviewed, . findings favor an ileus. The overall amount of stool within the colon has decreased, will change to n.p.o., IV fluid, Hold high-fiber diet C1 fracture, nasal bones fracture, Cervical collar was cleared by Dr. Matos, continue watch, so far no any sign of uncomfortable or compromise of neural muscular events history of rectal cancer, HTN, HLD, DM II, CKD stage III and BPH, condition stable continue current medication, follow-up renal function, continue insulin sliding scale Patient's oncologist and radiation oncology is seeing patient Continued [facility] stay due to: multiple IV medications needed Discharge planning: home
[2017-08-22 15:42] VITALS: BP 132/69; PULSE 71; TEMP 36.6; O2SAT 96
[2017-08-22] MEDS: MAGNESIUM CITRATE 296 ML/BTL PO SCH ×2 (16:00→20:45)
--- NOTE | 2017-08-22 16:53 | Hematology/Oncology Prog Note ---
Hematology/Onc Progress Note Date of Service Aug 22, 2017. Diagnoses Rectal adenocarcinoma Diarrhea Medications Medications Administered Medications (Trade) Dose Ordered Sig/Omaira Route Start Time Stop Time Status Last Admin Dose Admin Sodium Chloride 500 ml @ 999 mls/hr Q31M STAT IV 08/18/17 10:29 08/18/17 10:59 DC 08/18/17 11:28 999 MLS/HR Heparin Sodium (Porcine) (Heparin Sq 5000 Unit/0.5ml) 5,000 unit Q12 SQ 08/18/17 21:00 09/17/17 20:59 08/22/17 08:55 5,000 UNIT Potassium Chloride/Sodium Chloride 1,000 ml @ 75 mls/hr [id number] IV 08/18/17 15:45 09/17/17 15:44 08/22/17 12:39 75 MLS/HR Acetaminophen (Tylenol Tab) 650 mg Q4H PRN PO 08/18/17 13:45 09/17/17 13:44 08/22/17 12:57 650 MG Cholecalciferol (Vitamin D Tab) 2,000 inter.unit QAM PO 08/19/17 09:00 09/18/17 08:59 08/22/17 08:57 2,000 INTER.UNIT Cyanocobalamin (Vitamin B-12 Tab) 2,000 mcg QAM PO 08/19/17 09:00 09/18/17 08:59 08/22/17 08:57 2,000 MCG Diltiazem HCl (TIAzac CAP) 180 mg QAM PO 08/19/17 09:00 09/18/17 08:59 08/22/17 08:58 180 MG Rosuvastatin Calcium (Crestor Tab) 10 mg HS PO 08/18/17 21:00 09/17/17 20:59 08/21/17 20:55 10 MG Tamsulosin HCl (Flomax Cap) 0.4 mg HS PO 08/18/17 21:00 09/17/17 20:59 08/21/17 20:56 0.4 MG Insulin Aspart (novoLOG ASPART) SLIDING SCALE G... ACHS SC 08/18/17 16:15 09/17/17 16:14 08/22/17 12:45 5 UNITS Bacitracin (Bacitracin Oint) 1 appln DAILY EXT 08/20/17 09:00 08/24/17 08:59 08/22/17 08:58 1 APPLN Diphenoxylate HCl/ Atropine (Lomotil Tab) 1 tab NOW ONCE PO 08/19/17 12:45 08/19/17 12:49 DC 08/19/17 13:47 1 TAB Diphenoxylate HCl/ Atropine (Lomotil Tab) 1 tab Q12 PRN PO 08/19/17 12:45 09/18/17 12:44 Future Hold 08/21/17 09:14 1 TAB Magnesium Oxide (Mag-Ox Tab) 400 mg BID PO 08/20/17 09:00 08/23/17 08:59 08/22/17 08:58 400 MG Magnesium Sulfate 1 gm/Prmx 100 ml @ 100 mls/hr NOW ONCE IV 08/20/17 12:30 08/20/17 13:29 DC 08/20/17 13:15 100 MLS/HR Cholestyramine Resin (Questran Powder Light) 4 gm BID@10,22 PO 08/20/17 22:00 08/21/17 21:59 DC 08/20/17 21:44 4 GM Loperamide HCl (Imodium Cap) 2 mg UD PRN PO 08/20/17 15:15 08/20/17 19:06 DC 08/20/17 18:21 2 MG Loperamide HCl (Imodium Cap) SEE DOSING INSTRUCTIONS MAX:... UD PRN PO 08/20/17 19:15 09/19/17 15:14 Future Hold 08/21/17 12:25 2 MG Magnesium Sulfate 1 gm/Prmx 100 ml @ 100 mls/hr NOW STAT IV 08/21/17 08:46 08/21/17 09:45 DC 08/21/17 09:02 100 MLS/HR Magnesium Citrate (Citrate Of Magnesia Soln) 150 ml TODAY@1600,2100 PO 08/21/17 16:00 08/22/17 23:59 08/21/17 20:58 150 ML Morphine Sulfate (MoRPHine SULFATE INJ) 4 mg NOW STAT IV 08/21/17 23:34 08/21/17 23:42 DC 08/22/17 00:05 4 MG Lisinopril (Zestril Tab) 5 mg QAM PO 08/22/17 08:00 09/21/17 07:59 08/22/17 09:14 5 MG Subjective Mr. Bhakta had excessive bowel movements yesterday, following treatment with laxatives. He had stretches of the day where he could barely get help before soiling his bed. He is doing better today, but is still having liquid stools. He had an abdominal x-ray today that is suggestive of an ileus. He denies any nausea, vomiting, or pain. He is understandably worn out from yesterday. Review of Systems: Constitutional: + weakness, + fatigue Respiratory: No cough, No shortness of breath Cardiovascular: No chest pain Abdomen: + diarrhea, No pain Musculoskeletal: No joint pain, No muscle pain Heme: No abnormal bleeding/bruising Vital Signs Vital Signs Past 12 Hours Date Time Temp Pulse Resp B/P (MAP) Pulse Ox O2 Delivery O2 Flow Rate FiO2 08/22/17 16:00 Room Air 08/22/17 15:42 36.6 71 20 132/69 (90) 96 08/22/17 11:33 36.4 69 18 153/73 (99) 94 08/22/17 08:18 36.5 93 18 155/67 (96) 96 08/22/17 08:00 Room Air Physical Exam Constitutional: Level of Distress: NAD (tired appearing but comfortable) Psychiatric: Mental Status: active & alert Orientation: oriented except where noted Lungs: Auscuitation: breath sounds normal Cardiovascular: Heart Auscultation: RRR Abdomen: Inspection & Palpation: soft, no tenderness, guarding & rebound Laboratory Last 24 Hours Test 08/21/17 20:22 08/22/17 07:44 08/22/17 07:59 08/22/17 11:53 Bedside Glucose 157 mg/dl 142 mg/dl 180 mg/dl Sodium Level 136 mmol/L Potassium Level 4.3 mmol/L Chloride Level 105 mmol/L Carbon Dioxide Level 21 mmol/L Anion Gap 11.0 mmol/L Blood Urea Nitrogen 14 mg/dl Creatinine 1.05 mg/dl Est Creatinine Clear Calc Drug Dose 68.0 ml/min Estimated GFR () 79.0 Estimated GFR (Non- 68.1 BUN/Creatinine Ratio 13.0 Random Glucose 144 mg/dl Calcium Level 8.0 mg/dl Phosphorus Level 3.1 mg/dl Magnesium Level 2.1 mg/dl Assessment & Plan I would not give Mr. Bhakta any more laxatives at this point. I think his ileus is reactive and should resolve with conservative, supportive care. For now, I think we can also forgo additional anti-diarrheals as well. We will definitely forgo additional chemotherapy, particularly since he only has a few more fractions of RT planned. From the perspective of his cancer, the next step will be restaging and then re-evaluation by Dr. Monsalve for possible surgery. None of this needs to be done as an inpatient.
[2017-08-22 19:41] VITALS: BP 134/63; PULSE 70; TEMP 36.6; O2SAT 96
[2017-08-22] MEDS: TAMSULOSIN HCL 0.4 MG CAP PO SCH (21:24)
[2017-08-22] MEDS: ROSUVASTATIN CALCIUM 10 MG TAB PO SCH (21:24)
--- NOTE | 2017-08-22 21:38 | GASTROENTEROLOGY PROGRESS NOTE ---
DATE: 08/22/2017 SUBJECTIVE: The chart reviewed, patient examined. The patient received a bottle of mag citrate last evening over 2 doses and had increased stool output with pasty solid bowel movements as well. Today although he still has to go, he feels perhaps better controlled with his stools. He did have a flat plate this morning and this showed a decrease in his stool burden, although there was some increase in the colonic distention and distended loops of bowel that may suggest an early ileus. Cecum is at 12.6 cm. LABORATORY STUDIES: Today, there are no blood tests from today for CBC. His serum electrolytes show potassium 4.3, normal magnesium of 2.1, phosphorus 3.1, BUN and creatinine of 14 and 1.0. MEDICATIONS: Lisinopril, morphine sulfate, mag citrate yesterday, bacitracin ointment, vitamin D, diltiazem, rosuvastatin, tamsulosin, and Zofran. REVIEW OF SYSTEMS: Otherwise noncontributory based on 13-point exam except for mentioned above. PHYSICAL EXAMINATION: VITAL SIGNS: Blood pressure 132/69, pulse ox 96, respiratory rate 20, heart rate 71, temperature 36.6. GENERAL: The patient is awake, alert and oriented x3. HEENT: Sclerae are anicteric, conjunctiva moist. Oral mucosa moist. HEART: Normal S1, S2. LUNGS: Clear to auscultation. ABDOMEN: Distended. Positive bowel sounds with minimal tympany. There is no rebound or guarding. EXTREMITIES: Without clubbing, cyanosis. Trace edema bilaterally. RECTAL: Deferred. FINDINGS: On a flat plate today suggest possible early ileus with the cecum at 12.6 cm. However, the stool burden has decreased. He has continued to have some stool output today and seems to be in better control. I believe it will be reasonable to hold the mag citrate dose at this point and reassess with a flat plate tomorrow morning to see if there is any evolving ileus or continued colonic distention. However, there are bowel movements and I think this makes an ileus less likely and may simply reflect a volume status from the mag citrate administered a few hours before the x-ray. If it looks like the ileus resolving then another bottle of mag citrate later on Tuesday is reasonable. The patient should ambulate as tolerated. All questions answered.
[2017-08-22 23:39] VITALS: BP 130/64; PULSE 63; TEMP 36.7; O2SAT 94
[2017-08-23] MEDS: NSS + 20MEQ KCL 1000ML 1,000 ML IV SCH ×2 (01:58→15:41)
[2017-08-23 04:25] VITALS: BP 123/68; PULSE 63; TEMP 36.7; O2SAT 96
[2017-08-23 06:44] LABS: CALCIUM 7.9 mg/dl (8.5-10.1); CREATININE 1.1 mg/dl (0.60-1.40); PHOSPHORUS 3.3 mg/dl (2.5-4.9); POTASSIUM 4.1 mmol/L (3.5-5.1)
[2017-08-23] MEDS: CHOLECALCIFEROL 1000 INTER.UNIT TAB PO SCH (08:01)
[2017-08-23] MEDS: ACETAMINOPHEN 325 MG TAB PO PRN ×3 (08:01→22:41)
[2017-08-23] MEDS: LISINOPRIL 5 MG TAB PO SCH (08:01)
[2017-08-23] MEDS: BACITRACIN OINT 15 GM TUBE EXT SCH (08:02)
[2017-08-23] MEDS: DILTIAZEM HCL (TIAzac) 180 MG CAPCR PO SCH (08:02)
[2017-08-23] MEDS: CYANOCOBALAMIN 500 MCG TAB (VIT B-12) PO SCH (08:02)
[2017-08-23] MEDS: MAGNESIUM OXIDE 400 MG TAB PO SCH (08:02)
[2017-08-23 08:15] VITALS: BP 165/66; PULSE 72; TEMP 36.6; O2SAT 97
--- NOTE | 2017-08-23 08:51 | Progress Note ---
Subjective Date of Service: Aug 23, 2017. Subjective this pt has had some resolution of his abdominal symptoms, he has some nose pain and neck pain but is relieved to not have to wear rigid collar. He is tolerating clear liquid diets. Problem List Medical Problems: (1) Acute head injury Status: Acute (2) C1 cervical fracture Status: Acute (3) Low back pain Status: Acute (4) Nasal fracture Status: Acute (5) Syncope Status: Acute (6) Urinary retention Status: Acute (7) Urinary retention Status: Acute Review of Systems Constitutional: + weakness, + fatigue, No fever, No chills Cardiac: No chest pain, No orthopnea, No PND Abdomen: + pain, No nausea, No vomiting, No diarrhea Musculoskeletal: No joint pain, No muscle pain Male : No dysuria, No urinary frequency Psychiatric: No depression symptoms, No anxiety Objective Vital Signs Date Time Temp Pulse Resp B/P (MAP) Pulse Ox O2 Delivery O2 Flow Rate FiO2 08/23/17 08:15 36.6 72 19 165/66 (99) 97 08/23/17 04:25 36.7 63 20 123/68 (86) 96 Room Air 08/23/17 00:00 Room Air 08/22/17 23:39 36.7 63 20 130/64 (86) 94 Room Air 08/22/17 20:00 Room Air 08/22/17 19:41 36.6 70 16 134/63 (86) 96 Room Air 08/22/17 16:00 Room Air 08/22/17 15:42 36.6 71 20 132/69 (90) 96 08/22/17 11:33 36.4 69 18 153/73 (99) 94 Physical Exam General Appearance: WD/WN, + mild distress Eyes: normal inspection, sclerae normal Neck: supple, no JVD Respiratory/Chest: chest non-tender, lungs clear Cardiovascular: regular rate, rhythm, no murmur Abdomen: soft, no organomegaly, + distended Extremities: non-tender, no pedal edema Neurologic/Psychiatric: alert, oriented x 3 Laboratory Results Last 24 Hours Test 08/22/17 11:53 08/22/17 16:35 08/22/17 19:55 08/23/17 05:59 Bedside Glucose 180 mg/dl 192 mg/dl 160 mg/dl Sodium Level 138 mmol/L Potassium Level 4.1 mmol/L Chloride Level 109 mmol/L Carbon Dioxide Level 21 mmol/L Anion Gap 8.0 mmol/L Blood Urea Nitrogen 18 mg/dl Creatinine 1.10 mg/dl Est Creatinine Clear Calc Drug Dose 65.1 ml/min Estimated GFR () 74.7 Estimated GFR (Non- 64.4 BUN/Creatinine Ratio 16.5 Random Glucose 120 mg/dl Calcium Level 7.9 mg/dl Phosphorus Level 3.3 mg/dl Magnesium Level 2.2 mg/dl Test 08/23/17 08:02 Bedside Glucose 123 mg/dl Assessment and Plan 77 y/o male with a history of rectal cancer, admitted with traumatic syncope, resulting in a C1 and nasal bone fractures he has a history of HTN, HLD, DM II, CKD stage III and BPH C1 fracture from fall, syncope, Dr Matos is following Diarrhea, stool incontinence--related to radiation for recent diagnosis of rectal cancer -C. diff negative, Stool studies negative -Gentle IVF w/NSS + 20 KCl at 75 cc/hr Rectal cancer Xeloda 1800 mg PO BID -Radiation on hold, has 5 treatments remaining HTN, HLD-- diltiazem 180 mg PO qd, Crestor 10 mg PO hs DM II--last HgbA1c 2006-Hold glimepiride, pioglitazone, metformin -Insulin sliding scale BSGs q ac and qhs - CKD stage III-renal dosing of appropriate meds BPH no symptoms on Flomax DVT prophylaxis -Heparin 5000 units SC q12h Code Status -Level V, DO NOT RESUSCITATE Continued [facility] stay due to: multiple IV medications needed Discharge planning: home
[2017-08-23] MEDS: HEPARIN SOD 5000 UNIT/0.5 ML CARP SQ SCH ×2 (08:53→21:18)
[2017-08-23] MEDS: INSULIN ASPART 100 UNITS/ML 3 ML PEN SC SCH ×4 (08:55→20:57)
--- NOTE | 2017-08-23 11:45 | DIAGNOSTIC IMAGING REPORT ---
KUB CLINICAL HISTORY: 77 years-old Male presenting with ileus status, syncope and collapse. TECHNIQUE: Single supine view of the abdomen was obtained. COMPARISON: 08/22/2017. FINDINGS: Mild gaseous distention of large bowel. No bowel obstruction. Resolution of mild gaseous distention of small bowel. No gross pneumoperitoneum allowing for portable supine technique. Multiple pelvic phleboliths noted. Osseous structures normal. Lung bases clear. IMPRESSION: 1. Resolution of ileus. No bowel obstruction or gross free air. Electronically signed by: Arash Feliciano M.D. 08/23/2017 11:43 AM Dictated Date/Time: 08/23/2017 11:42 AM
[2017-08-23 11:48] VITALS: BP 151/73; PULSE 69; TEMP 36.6; O2SAT 95
[2017-08-23 15:34] VITALS: BP 147/65; PULSE 65; TEMP 36.3; O2SAT 94
--- NOTE | 2017-08-23 17:35 | PROGRESS NOTE ---
DATE: 08/23/2017 SUBJECTIVE: The patient reports that his abdominal pain has significantly diminished. He does still feel a little bit bloated. He is passing a lot of gas. His stool frequency has diminished today down to 6 bowel movements compared to 12 the day before and 20 the day before that. He is tolerating clear liquid diet without any complications. His plain film of the abdomen today shows a significant decrease in bowel distention and resolution of his ileus. OBJECTIVE: ABDOMEN: On physical exam, his abdomen is slightly distended and tympanitic, but nontender. IMPRESSION: The patient's diarrhea and ileus have improved significantly. I believe that this is probably mucositis from his chemotherapy which is being held. I plan on advancing his diet to a low fiber diet tomorrow to see how he tolerates that.
[2017-08-23 19:34] VITALS: BP 150/73; PULSE 51; TEMP 36.8; O2SAT 97
[2017-08-23] MEDS: ROSUVASTATIN CALCIUM 10 MG TAB PO SCH (20:57)
[2017-08-23] MEDS: TAMSULOSIN HCL 0.4 MG CAP PO SCH (20:57)
[2017-08-23 23:06] VITALS: BP 157/66; PULSE 81; TEMP 36.4; O2SAT 92
[2017-08-24] VITALS (7 sets, daily range): BP systolic 140–172; BP diastolic 66–84; PULSE 62–71; TEMP 36.2–36.8; O2SAT 93–97
[2017-08-24] MEDS: NSS + 20MEQ KCL 1000ML 1,000 ML IV SCH (04:45)
[2017-08-24] MEDS: BACITRACIN OINT 15 GM TUBE EXT SCH (07:54)
[2017-08-24] MEDS: LISINOPRIL 5 MG TAB PO SCH (07:54)
[2017-08-24] MEDS: ACETAMINOPHEN 325 MG TAB PO PRN (07:54)
[2017-08-24] MEDS: CHOLECALCIFEROL 1000 INTER.UNIT TAB PO SCH (07:55)
[2017-08-24] MEDS: DILTIAZEM HCL (TIAzac) 180 MG CAPCR PO SCH (07:55)
[2017-08-24] MEDS: CYANOCOBALAMIN 500 MCG TAB (VIT B-12) PO SCH (07:55)
[2017-08-24] MEDS: HEPARIN SOD 5000 UNIT/0.5 ML CARP SQ SCH ×2 (09:04→20:41)
[2017-08-24] MEDS: INSULIN ASPART 100 UNITS/ML 3 ML PEN SC SCH ×4 (09:04→20:31)
--- NOTE | 2017-08-24 10:23 | Discharge Instructions ---
Discharge Instructions Date of Service Aug 24, 2017. Admission Reason for Admission: Diarrhea, Syncope And Collapse Discharge Discharge Diagnosis / Problem: fall, cervical spine fracture, nasal fracture Discharge Goals Goal(s): Diagnostic testing, Therapeutic intervention Activity Recommendations Activity Limitations: as noted below Lifting Limitations: gradually increase as tolerated . Current Hospital Diet Patient's current hospital diet: Diabetes Type 2 Diet, Low Fiber Diet Discharge Diet Recommended Diet: Diabetes Type 2 Diet Pending Studies Studies pending at discharge: no Laboratory Results Hemoglobin A1c Test 08/18/17 10:40 Range/Units Estimated Average Glucose 235 mg/dl Hemoglobin A1c 9.8 H 4.5-5.6 % Medical Emergencies . Who to Call and When: Medical Emergencies: If at any time you feel your situation is an emergency, please call 911 immediately. . Non-Emergent Contact Non-Emergency issues call your: Primary Care Provider, Surgeon (orthopaedics) Call Non-Emergent contact if: temperature is above 101, your pain is unusual for you . . "Provider Documentation" section prepared by Avelino Llanos. . Digital Marketing Manager Recommendations Digital Marketing Manager Recommendations: Please contact your oncologist before restarting your Xeloda Please do not resume your diabetic medication unless your are tolerating a normal diet follow up with orhtopedics for your fractures
[2017-08-24] MEDS: LIDODERM (LIDOCAINE) PATCH 5% TD SCH (12:42)
--- NOTE | 2017-08-24 18:10 | Progress Note ---
Subjective Date of Service: Aug 24, 2017. Subjective pt is feeling weak today and mostly complaining of right rib pain, has desire to try XRT, oncology does not want the pt to have any additional chemo at this time but will consider restaging and follow up with oncological surgeon Problem List Medical Problems: (1) Acute head injury Status: Acute (2) C1 cervical fracture Status: Acute (3) Low back pain Status: Acute (4) Nasal fracture Status: Acute (5) Syncope Status: Acute (6) Urinary retention Status: Acute (7) Urinary retention Status: Acute Review of Systems Constitutional: + weakness, + fatigue, No fever, No chills Respiratory: No cough, No shortness of breath, No dyspnea on exertion Cardiac: No chest pain, No PND, No edema Abdomen: + diarrhea, No pain, No nausea, No vomiting Musculoskeletal: No joint pain, No muscle pain Male : No dysuria, No incontinence Neurologic: No memory loss, No paralysis, No weakness Objective Vital Signs Date Time Temp Pulse Resp B/P (MAP) Pulse Ox O2 Delivery O2 Flow Rate FiO2 08/24/17 15:22 36.2 66 22 158/84 (108) 97 Room Air 08/24/17 13:54 08/24/17 12:10 36.8 70 20 140/66 (90) 95 Room Air 08/24/17 08:00 Room Air 08/24/17 07:53 95 Room Air 08/24/17 07:41 36.4 70 18 152/70 (97) 95 Room Air 08/24/17 03:42 36.6 68 20 161/68 (99) 95 Room Air 08/24/17 00:10 Room Air 08/23/17 23:06 36.4 81 18 157/66 (96) 92 Room Air 08/23/17 19:55 Room Air 08/23/17 19:34 36.8 51 18 150/73 (98) 97 Room Air Physical Exam General Appearance: WD/WN, + mild distress Eyes: normal inspection, sclerae normal Neck: supple, no JVD Respiratory/Chest: chest non-tender, lungs clear, normal breath sounds Cardiovascular: regular rate, rhythm, no murmur Abdomen: normal bowel sounds, non tender, soft Extremities: no pedal edema, no calf tenderness Neurologic/Psychiatric: alert, oriented x 3 Laboratory Results Last 24 Hours Test 08/23/17 20:08 08/24/17 07:39 08/24/17 11:41 08/24/17 16:32 Bedside Glucose 161 mg/dl 112 mg/dl 143 mg/dl 140 mg/dl Assessment and Plan 77 y/o male with a history of rectal cancer, admitted with traumatic syncope, resulting in a C1 and nasal bone fractures he has a history of HTN, HLD, DM II, CKD stage III and BPH C1 fracture from fall, syncope, Dr Matos is following, no c collar needed, will have out pt follow up Diarrhea, stool incontinence--related to radiation for recent diagnosis of rectal cancer, 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 diff negative, Stool studies negative Rectal cancer Xeloda 1800 mg PO BID, will hold on discharge -Radiation on resumes 08/24, has 5 treatments remaining HTN, HLD-- controlled with diltiazem 180 mg PO qd, Crestor 10 mg PO hs DM II--last HgbA1c 2006-Hold glimepiride, pioglitazone, metformin -Insulin sliding scale BSGs q ac and qhs, consider resume at discharge - CKD stage III-renal dosing of appropriate meds BPH no symptoms on Flomax DVT prophylaxis -Heparin 5000 units SC q12h Code Status -Level V, DO NOT RESUSCITATE Continued [facility] stay due to: multiple IV medications needed Discharge planning: home
[2017-08-24] MEDS: TAMSULOSIN HCL 0.4 MG CAP PO SCH (20:35)
[2017-08-24] MEDS: ROSUVASTATIN CALCIUM 10 MG TAB PO SCH (20:35)
[2017-08-25] MEDS: NSS + 20MEQ KCL 1000ML 1,000 ML IV SCH ×2 (01:53→08:29)
[2017-08-25 02:55] VITALS: BP 149/80; PULSE 77; TEMP 36.5; O2SAT 95
[2017-08-25 07:06] VITALS: BP 157/67; PULSE 66; TEMP 36.9; O2SAT 95
[2017-08-25] MEDS: LIDODERM (LIDOCAINE) PATCH 5% TD SCH (08:24)
[2017-08-25] MEDS: LISINOPRIL 5 MG TAB PO SCH (08:24)
[2017-08-25] MEDS: DILTIAZEM HCL (TIAzac) 180 MG CAPCR PO SCH (08:24)
[2017-08-25] MEDS: CYANOCOBALAMIN 500 MCG TAB (VIT B-12) PO SCH (08:24)
[2017-08-25] MEDS: CHOLECALCIFEROL 1000 INTER.UNIT TAB PO SCH (08:24)
[2017-08-25] MEDS: INSULIN ASPART 100 UNITS/ML 3 ML PEN SC SCH ×4 (08:28→21:13)
[2017-08-25] MEDS: HEPARIN SOD 5000 UNIT/0.5 ML CARP SQ SCH ×2 (08:29→21:13)
[2017-08-25] MEDS: ACETAMINOPHEN 325 MG TAB PO PRN ×2 (08:29→15:40)
[2017-08-25 11:47] VITALS: BP 148/68; PULSE 63; TEMP 36.4; O2SAT 97
[2017-08-25 14:24] VITALS: BP 153/74; PULSE 18; PULSE 72; TEMP 36.4; O2SAT 96
--- NOTE | 2017-08-25 17:36 | Progress Note ---
Subjective Date of Service: Aug 25, 2017. Subjective this pt feels fatigued and wishes to complete XRT and then will move to [facility] he has participated in PT today and OT HIs diarrhea has improved Problem List Medical Problems: (1) Acute head injury Status: Acute (2) C1 cervical fracture Status: Acute (3) Low back pain Status: Acute (4) Nasal fracture Status: Acute (5) Syncope Status: Acute (6) Urinary retention Status: Acute (7) Urinary retention Status: Acute Review of Systems Constitutional: No fever, No chills, No weakness, No fatigue Respiratory: No cough, No sputum, No shortness of breath Cardiac: No chest pain, No edema Abdomen: + diarrhea, No pain, No nausea, No vomiting Musculoskeletal: No joint pain, No muscle pain Neurologic: No memory loss, No paralysis Objective Vital Signs Date Time Temp Pulse Resp B/P (MAP) Pulse Ox O2 Delivery O2 Flow Rate FiO2 08/25/17 16:00 Room Air 08/25/17 14:24 36.4 72 18 153/74 (100) 96 Room Air 08/25/17 11:47 36.4 63 18 148/68 (94) 97 Room Air 08/25/17 08:20 Room Air 08/25/17 07:06 36.9 66 20 157/67 (97) 95 08/25/17 02:55 36.5 77 20 149/80 (103) 95 Room Air 08/25/17 00:00 Room Air 08/24/17 23:01 36.4 62 20 162/68 (99) 93 Room Air 08/24/17 19:51 36.4 71 20 172/74 (106) 95 Room Air 166/71 (102) Physical Exam General Appearance: WD/WN, + mild distress Eyes: normal inspection, sclerae normal Respiratory/Chest: chest non-tender, lungs clear, normal breath sounds Cardiovascular: regular rate, rhythm, no murmur Abdomen: normal bowel sounds, soft, + guarding, + tenderness Extremities: no pedal edema, no calf tenderness Neurologic/Psychiatric: alert, oriented x 3 Laboratory Results Last 24 Hours Test 08/24/17 20:18 08/25/17 07:30 08/25/17 11:39 08/25/17 16:33 Bedside Glucose 165 mg/dl 139 mg/dl 163 mg/dl 167 mg/dl Assessment and Plan 77 y/o male with a history of rectal cancer, admitted with traumatic syncope, resulting in a C1 and nasal bone fractures he has a history of HTN, HLD, DM II, CKD stage III and BPH Pt continues to improve but still has some liquidy diarrhea and is weak. 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 diff negative, Stool studies negative Rectal cancer Xeloda 1800 mg PO BID, will hold on discharge -Radiation on resumes 08/24, has 5 treatments remaining HTN, HLD-- ccontinues with diltiazem 180 mg PO qd, Crestor 10 mg PO hs DM II--last HgbA1c 2006-Hold glimepiride, pioglitazone, metformin -Insulin sliding scale BSGs q ac and qhs, resume at discharge - CKD stage III-renal dosing of appropriate meds BPH continues with no symptoms on Flomax DVT prophylaxis -Heparin 5000 units SC q12h Code Status -Level V, DO NOT RESUSCITATE Continued [facility] stay due to: multiple IV medications needed Discharge planning: home
[2017-08-25 19:23] VITALS: BP 158/84; PULSE 69; TEMP 36.4; O2SAT 97
[2017-08-25] MEDS: TAMSULOSIN HCL 0.4 MG CAP PO SCH (21:00)
[2017-08-25] MEDS: ROSUVASTATIN CALCIUM 10 MG TAB PO SCH (21:00)
[2017-08-25 23:08] VITALS: BP 157/94; PULSE 61; TEMP 36.4; O2SAT 93
[2017-08-26] MEDS: NSS + 20MEQ KCL 1000ML 1,000 ML IV SCH ×2 (00:10→09:35)
[2017-08-26] MEDS: ACETAMINOPHEN 325 MG TAB PO PRN ×2 (00:16→08:19)
[2017-08-26 07:48] VITALS: BP 130/72; PULSE 79; TEMP 36.6; O2SAT 94
[2017-08-26] MEDS: DILTIAZEM HCL (TIAzac) 180 MG CAPCR PO SCH (08:17)
[2017-08-26] MEDS: LISINOPRIL 5 MG TAB PO SCH (08:18)
[2017-08-26] MEDS: CYANOCOBALAMIN 500 MCG TAB (VIT B-12) PO SCH (08:18)
[2017-08-26] MEDS: CHOLECALCIFEROL 1000 INTER.UNIT TAB PO SCH (08:18)
[2017-08-26] MEDS: LIDODERM (LIDOCAINE) PATCH 5% TD SCH (08:19)
[2017-08-26] MEDS: INSULIN ASPART 100 UNITS/ML 3 ML PEN SC SCH (08:24)
[2017-08-26] MEDS: HEPARIN SOD 5000 UNIT/0.5 ML CARP SQ SCH (08:25)
[2017-08-26 08:44] VITALS: O2SAT 94
[2017-08-26 09:36] VITALS: BP 130/72; PULSE 79; TEMP 36.6; O2SAT 94
--- NOTE | 2017-08-26 18:12 | Discharge Summary ---
Discharge Summary Date of Service Aug 26, 2017. Discharge Summary Admission Date: Aug 19, 2017 at 13:42 Discharge Date: Aug 25, 2017 Discharge Disposition: Rehab Principal Diagnosis: radiation mucositis Medication Reconciliation Continued Medications: Capecitabine (Xeloda) 500 Mg Tab 1800 MG PO Q12H, TAB please contact your doctor before restarting Cholecalciferol (Vitamin D3) 1,000 Unit Tab 2 TAB PO QAM Cyanocobalamin (Vitamin B-12) 1,000 Mcg Tab 2000 MCG PO QAM Diltiazem Hcl Ext Rel (Tiazac) 180 Mg Capcr 180 MG PO QAM Glimepiride (Glimepiride) 1 Mg Tab 1 MG PO QAM Iron Combinations (Iron Complex) 1 Cap Cap 65 MG PO QAM Metformin Hcl (Glucophage Er) 750 Mg Tab 750 MG PO HS, TAB Rosuvastatin Calcium (Crestor) 10 Mg Tab 10 MG PO HS, TAB Tamsulosin Hcl (Flomax) 0.4 Mg Cap 0.4 MG PO HS, CAP [glimiperide-piog] () 1 TAB PO QAM Glimepiride-Pioglitzazone 2mg-30mg Discharge Exam Review of Systems: Constitutional: + fever, + chills Genitourinary - Male: + hematuria, + dysuria Physical Exam: General Appearance: WD/WN, no apparent distress Neck: supple, no JVD Respiratory/Chest: chest non-tender, lungs clear, normal breath sounds Cardiovascular: regular rate, rhythm, no murmur Abdomen / GI: normal bowel sounds, non tender, soft Extremities: no pedal edema, normal range of motion Neurologic/Psychiatric: alert, oriented x 3 Hospital Course 77 y/o male with a history of rectal cancer, admitted with traumatic syncope, resulting in a C1 and nasal bone fractures he has a history of HTN, HLD, DM II, CKD stage III and BPH Pt continues to improve C1 fracture from fall, syncope, Dr Matos has clearred c spine so no c collar needed, will have out pt follow up Diarrhea, stool incontinence--continues at lesser amount, related to radiation for recent diagnosis of rectal cancer, 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 diff negative, Stool studies negative Rectal cancer Xeloda 1800 mg PO BID, will hold on discharge -Radiation on resumes 08/24, has 5 treatments remaining HTN, HLD-- continues with diltiazem 180 mg PO qd, Crestor 10 mg PO hs DM II--last HgbA1c 2006-Hold glimepiride, pioglitazone, metformin -Insulin sliding scale BSGs q ac and qhs, resume at discharge - CKD stage III-renal dosing of appropriate meds BPH continues with no symptoms on Flomax Code Status -Level V, DO NOT RESUSCITATE Total Time Spent: Greater than 30 minutes This includes examination of the patient, discharge planning, medication reconciliation, and communication with other providers. Discharge Instructions Please refer to the electronic Patient Visit Report (Discharge Instructions) for additional information.
== END 2017-08-26 10:30 | DRG 392 ==
LOC: EDBD 10:12 → C.EDC 10:14 → C.2T 13:57 → ENRESERV 14:20 → OBSVTOIN 08-19 13:42 → ENRESERV 08-20 13:37 → C.4E 08-20 14:59 → CANRESERV 08-23 11:51 → ENRESERV 08-23 11:51 → CANBEDREQ 08-23 12:05
PROVIDERS: ADMIT Internal Medicine; ATTEND Internal Medicine
DX: K92.81 Gastrointestinal mucositis (ulcerative) (principal); E86.0 Dehydration; C20 Malignant neoplasm of rectum; S12.000A Unspecified displaced fracture of first cervical vertebra, initial encounter for closed fracture; S06.9X9A Unspecified intracranial injury with loss of consciousness of unspecified duration, initial encounter; K56.7 Ileus, unspecified; E11.9 Type 2 diabetes mellitus without complications; Z79.84 Long term (current) use of oral hypoglycemic drugs; S02.2XXA Fracture of nasal bones, initial encounter for closed fracture; N40.0 Benign prostatic hyperplasia without lower urinary tract symptoms; Z92.3 Personal history of irradiation; K57.90 Diverticulosis of intestine, part unspecified, without perforation or abscess without bleeding; N18.2 Chronic kidney disease, stage 2 (mild); I12.9 Hypertensive chronic kidney disease with stage 1 through stage 4 chronic kidney disease, or unspecified chronic kidney disease; R15.9 Full incontinence of feces; Y84.2 Radiological procedure and radiotherapy as the cause of abnormal reaction of the patient, or of later complication, without mention of misadventure at the time of the procedure; Y92.019 Unspecified place in single-family (private) house as the place of occurrence of the external cause; W03.XXXA Other fall on same level due to collision with another person, initial encounter

== ENCOUNTER → 2017-10-05 | Outpatient (CLI) | payer OTHER, BC ==
[~2017-10-05] MED LIST changes: +FERR1TAB13 PO; +GADAVIST IV PRN; -GLIM1TAB2 PO; -IRON1CAP2 PO; +OPTIRAY 320 IV PRN; -XLD/500 PO; -[UNRECOGNIZED DRUG - MIXTURE] PO
--- NOTE | 2017-10-05 13:50 | DIAGNOSTIC IMAGING REPORT ---
CHEST CT WITH CONTRAST CT DOSE: 1171.37 mGy.cm HISTORY: Follow-up study in a patient with history of rectal carcinoma CT TECHNIQUE: Multiaxial CT images of the chest were performed following the intravenous administration of contrast. A dose lowering technique was utilized adhering to the principles of ALARA. COMPARISON: Chest CT 06/17/2017. FINDINGS: Slightly exophytic morphology of the inferior pole left thyroid is again noted. No pathologic adenopathy about the chest. Moderate multichamber cardiac enlargement with coronary arterial calcifications. Small pericardial effusion. There is no thoracic aortic aneurysm or dissection identified. The imaged great vessels appear patent. The opacified pulmonary arterial tree is unremarkable. There is no pneumothorax, pleural effusion or lobar airspace consolidation. There is mild dependent subsegmental bibasilar atelectasis. No suspicious pulmonary nodules or masses are identified. The central airways appear patent. No acute process of the imaged upper abdomen. Soft tissues are unremarkable. Mildly demineralized appearance of the bones with degenerative changes of the shoulders and spine. Partially imaged postsurgical changes about the left humerus. Multilevel spondylitic spurring about the spine. There are no suspicious lytic or blastic bony lesions identified. Healing subacute appearing fracture of the posterior right 11th rib, new from comparison. IMPRESSION: 1. No acute intrathoracic abnormality identified. 2. No pathologic adenopathy or evidence of intrathoracic metastatic disease. 3. Cardiomegaly with small pericardial effusion. 4. Healing nondisplaced subacute appearing fracture of the posterior right 11th rib, new from comparison study 06/17/2017. Electronically signed by: Tarik Becerra M.D. 10/05/2017 1:48 PM Dictated Date/Time: 10/05/2017 1:38 PM
--- NOTE | 2017-10-05 13:58 | DIAGNOSTIC IMAGING REPORT ---
ABD/PELVIS IV CONTRAST ONLY CLINICAL HISTORY: 77 years-old Male presenting with rectal cancer. TECHNIQUE: Multidetector CT of the abdomen and pelvis was performed after the administration of intravenous contrast. IV contrast: 119 mL of Optiray 320. A dose lowering technique was used consistent with the principles of ALARA (as low as reasonably achievable). COMPARISON: 06/17/2017. CT DOSE (mGy.cm): The estimated cumulative dose is 1171.37. FINDINGS: Facilities Officer topogram: Unremarkable. Lung bases: Minimal basilar opacities, likely atelectasis. Normal heart size. Small pericardial effusion. No pleural effusion. Liver: Normal morphology. No liver lesion. Patent hepatic vasculature. Biliary: No intrahepatic or extrahepatic biliary ductal dilatation. Normal gallbladder. Pancreas: Mild parenchymal atrophy. Spleen: Normal. Adrenal glands: Normal. Kidneys and ureters: Multiple subcentimeter hypodensities in the kidneys, too small to characterize but likely cysts. Multiple parapelvic cysts also noted. Mild diffuse cortical thinning suggested. No nephrolithiasis. No hydronephrosis. Mild nonspecific perinephric fat stranding bilaterally. Mild urothelial thickening bilaterally. Ureters nondistended. Bladder: Circumferential bladder wall thickening. This is slightly increased since the prior exam. Pelvic organs: Prostate enlargement likely secondary to benign prostatic hyperplasia. Bowel: The previously noted focal polypoid lesion in the mid rectum is no longer apparent. There is circumferential mild wall thickening of the rectum greatest in the mid to lower portion. No infiltration or nodularity within the mesorectal fat. No significant mesorectal fascial thickening. Diverticulosis of the sigmoid and descending colon. No pericolonic inflammatory change. Polypoid wall thickening may be present in the mid transverse colon (series 6 image 29). No bowel obstruction. Peritoneal cavity: No free fluid or intraperitoneal gas. Trace retroperitoneal fluid. Lymph nodes: No pathologically enlarged lymph nodes in the abdomen or pelvis. Prominent area rectal lymph node (series 6 image 318). Additional prominent left internal iliac node (series 6 image 363). Vasculature: Atherosclerosis of the normal caliber abdominal aorta. IVC patent. Abdominal wall: Normal. Musculoskeletal: Degenerative changes of the spine. Degenerative changes of the sacroiliac joints. Posterior right 11th rib fracture, which appears subacute to chronic. Bone island suspected in the left lateral seventh rib. No destructive osseous lesion. IMPRESSION: 1. Post treatment changes of the rectum with resolution of the polypoid mass, which was previously visualized arising from the right lateral wall of the mid rectum. Circumferential mild rectal wall thickening in the mid to lower rectum is now apparent, possibly post radiation change. No suspicious soft tissue infiltration in the mesorectal fat to suggest extension of disease. 2. No pathologically enlarged lymph nodes or evidence of metastatic disease in abdomen or pelvis. 3. Polypoid wall thickening of the transverse colon is suspicious for a colonic polyp. Gastroenterology consultation for colonoscopy recommended if this has not are ready been performed. 4. Circumferential bladder wall thickening likely chronic bladder outlet obstruction secondary to prostatomegaly. Superimposed cystitis as a manifestation of postradiation change is difficult to exclude. Electronically signed by: Arash Feliciano M.D. 10/05/2017 1:57 PM Dictated Date/Time: 10/05/2017 1:43 PM
--- NOTE | 2017-10-05 21:06 | DIAGNOSTIC IMAGING REPORT ---
PELVIC COMBO HISTORY: 77 years-old Male RECTAL CA follow-up study in a patient with history of rectal carcinoma. 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 The previously noted 4.0 cm mucosal mass of the rectum is no longer identified. There is mild to moderate circumferential wall thickening about the rectum, notably within the lower segment. No infiltration of the perirectal fat is identified. Nonenlarged perirectal lymph node is seen on the left measuring 5 x 5 mm on image 10 series 6 appears unchanged from comparison. There is an additional perirectal lymph node which is mildly prominent in size measuring 8 x 4 mm on image 9 series 7 with 7 x 6 mm right perirectal lymph node on image 2 series 5. No pathologically enlarged lymph nodes are identified. Colonic diverticulosis without diverticulitis. Prostamegaly with BPH changes. Urinary bladder wall thickening with trabeculation compatible with chronic bladder outlet obstruction. Iliac vessels appear patent and are within normal limits. No significant free fluid. At least mild degenerative changes about the bilateral femoral acetabular joints. No suspicious lesions identified involving the bony structures. Nonenlarged left inguinal lymph nodes. IMPRESSION: 1. Previously noted large lobulated mass of the rectal mucosa is no longer identified. There is moderate wall thickening of the mid and lower rectum without discrete focal lesion identified, suggesting post-treatment changes. 2. Mildly prominent nonenlarged perirectal lymph nodes as above. 3. Prostamegaly with BPH changes and evidence of chronic bladder outlet obstruction. 4. Sigmoid diverticulosis. The above report was generated using voice recognition software. It may contain grammatical, syntax or spelling errors. Electronically signed by: Tarik Becerra M.D. 10/06/2017 7:25 AM Dictated Date/Time: 10/05/2017 2:54 PM
== END | disposition home or self-care (01) ==
LOC: C.CTS 13:10
PROVIDERS: ATTEND Colon & Rectal Surgery
DX: C20 Malignant neoplasm of rectum (principal); I51.7 Cardiomegaly; K57.30 Diverticulosis of large intestine without perforation or abscess without bleeding; N40.0 Benign prostatic hyperplasia without lower urinary tract symptoms

== ENCOUNTER → 2017-11-29 | Day surgery (SDC) | payer OTHER, BC ==
[~2017-11-29] VITALS: Ht 175.3 cm; Wt 78.5 kg
[~2017-11-29] MED LIST changes: +ACET-1693 PO; +ASPI81TA28 PO; +CEFD1CAP14 PO; +CIPR-255 PO; +DTRSR/10 PO; -GADAVIST IV PRN; +INSDGI SC; +LPT/40 PO; +MECL1TAB42 PO; +METF-383 PO; +METF-384 PO; -METF750T PO; +MICO1POW8 TD; +ONDA4TAB46 PO; -OPTIRAY 320 IV PRN; +POLY335019 PO; +PRAM1CRE4 TD; +SENN8.6T94 PO; +SIME80CH23 PO; +SODI0.9I55 IV; +SODI0.9S; +SULF800T23 PO; +TRAM-10 PO; +ZOLP5TAB6 PO; +[UNRECOGNIZED DRUG - CODE] IV
[2017-11-29 13:12] VITALS: BP 128/62; PULSE 77; TEMP 36.6; O2SAT 95; Ht 175.3 cm; Wt 78.5 kg
--- NOTE | 2017-12-09 08:07 | CODING QUERY NO DIAGNOSIS ---
TREATMENT RENDERED WITHOUT A DIAGNOSIS To promote full compliance with coding requirements relating to patient care, physician participation is requested in all cases of party planner uncertainty. Please assist us with providing a diagnosis/symptom for the test(s) below: A diagnosis/symptom was not documented on your Order. A valid diagnosis/symptom is required to bill all insurances. Please remember that we are unable to code a diagnosis of rule out, probable, possible, questionable, or suspected. Tests that require a diagnosis: * IV NACL BOLUS DIAGNOSIS: * DOS: 11/29/17 Provider Signature: Date: Thank you Rola Gomez Health Information Management Once completed, please kindly fax back to [phone] For questions please call [phone]
== END | disposition home or self-care (01) ==
LOC: C.MTU 12:52
PROVIDERS: ATTEND Family Medicine
DX: E86.0 Dehydration (principal)

== ENCOUNTER → 2017-12-09 | Outpatient (CLI) | payer OTHER, BC ==
[~2017-12-09] MED LIST changes: -ACET-1693 PO; -CEFD1CAP14 PO; -CIPR-255 PO; -CRS/10 PO; -DILT-113 PO; -DTRSR/10 PO; -FERR1TAB13 PO; -LPT/40 PO; -MECL1TAB42 PO; -METF-384 PO; -MICO1POW8 TD; -ONDA4TAB46 PO; -POLY335019 PO; -PRAM1CRE4 TD; -SENN8.6T94 PO; -SIME80CH23 PO; -SODI0.9I55 IV; -SODI0.9S; -SULF800T23 PO; -TAMS0.4C38 PO; -ZOLP5TAB6 PO; -[UNRECOGNIZED DRUG - CODE] IV
--- NOTE | 2017-12-09 12:49 | DIAGNOSTIC IMAGING REPORT ---
CT OF THE ABDOMEN AND PELVIS WITHOUT CONTRAST CLINICAL HISTORY: Rectal cancer status post abdominoperineal resection. COMPARISON STUDY: CT of the abdomen and pelvis October 05, 2017 and bladder ultrasound November 13, 2017. TECHNIQUE: Axial images of the abdomen and pelvis were obtained without IV contrast. Images were reviewed in the axial, sagittal, and coronal planes. A dose lowering technique was utilized adhering to the principles of ALARA. FINDINGS: A small pericardial effusion is unchanged. The heart is moderately enlarged. Unenhanced images of the liver, spleen, adrenal glands and pancreas are unremarkable Global. Evaluation is suboptimal on this unenhanced exam. Probable parapelvic cysts are again noted. There is moderate to marked renal atrophy. Note is made of a colostomy at the level of the proximal sigmoid colon. There is mild adjacent infiltration which is postsurgical. There is a small amount of extraluminal gas and infiltration within the operative bed status post abdominoperineal resection. There is no drainable fluid collection. The prostate is markedly enlarged. A Marks balloon is present within the bladder. Note is made of colonic diverticulosis without evidence for acute diverticulitis. A possible 2.1 cm polyp within the mid transverse colon shown on image 38 of 100. There is no evidence for a bowel obstruction. No suspicious osseous lesion is present. IMPRESSION: 1. Status post abdominoperineal resection with small amount of extraluminal gas and infiltration within the operative bed which is likely within normal limits in the early postoperative setting. No drainable fluid collection. No bowel obstruction. 2. Possible 2.1 cm polyp within the mid transverse colon. A follow-up colonoscopy if not recently performed is recommended to exclude a mucosal lesion/polyp. 3. Marked enlargement of the prostate with Marks catheter in place. 4. No evidence of metastatic disease on this unenhanced exam. Electronically signed by: Rupesh Martell M.D. 12/09/2017 12:48 PM Dictated Date/Time: 12/09/2017 12:35 PM
== END | disposition home or self-care (01) ==
LOC: C.CTS 11:56
PROVIDERS: ATTEND Colon & Rectal Surgery
DX: Z09 Encounter for follow-up examination after completed treatment for conditions other than malignant neoplasm (principal); N40.0 Benign prostatic hyperplasia without lower urinary tract symptoms

== ENCOUNTER 2017-12-24 23:05 | Inpatient (IN) | payer OTHER, BC ==
[~2017-12-24] VITALS: Ht 175.3 cm; Wt 77.8 kg
[2017-12-24] MEDS ORDERED: SODIUM CHLORIDE 0.9% 1000ML 1,000 ML IV STA (23:16)
--- NOTE | 2017-12-24 23:32 | EMERGENCY ROOM VISIT NOTE ---
History Report prepared by Ann: Trevor Rosen Under the Supervision of: Dr. Lloyd Hale D.O. First contact with patient: 23:07 Chief Complaint: ABNORMAL LABS Stated Complaint: ABNORMAL LABS/ABDOMINAL PAIN History of Present Illness The patient is a 77 year old male who presents to the Emergency Room with complaints of abnormal labs. He reports that he has a colostomy and a Marks catheter. He states that he has had a catheter since October 31, and last had it changed 9 days ago. He reports that he has had many recent hospitalizations, including [facility] after chemotherapy, and a surgery in [place] to remove his rectum. He reports that his catheter does not release much fluid, and denies detecting blood in it. He reports that he vomited once on the way to the ER. The patient denies fever or shortness of breath. The patient reports that he lives at home. Source of History: patient Position: other (global) Quality: other (abnormal lab results) Timing: other (previous lab results) Modifying Factors (Relieving): other (none) Associated Symptoms: + vomiting, No fevers, No SOB Review of Systems See HPI for pertinent positives & negatives. A total of 10 systems reviewed and were otherwise negative. Past Medical & Surgical Medical Problems: (1) ARF (acute renal failure) (2) Diarrhea (3) Obstructive uropathy (4) Pre-syncope (5) severe diarrhea s/p chemo/raditaion for rectal cancer (6) Syncope and collapse Surgical Problems: (1) Previous back surgery Family History No significant family history Social History Smoking Status: Never Smoker Drug Use: none Marital Status: Housing Status: lives with family Occupation Status: retired Current/Historical Medications Scheduled Aspirin (Aspirin Ec), 81 MG PO DAILY Cholecalciferol (Vitamin D3), 1,000 UNITS PO QAM Cyanocobalamin (Vitamin B-12), 1,000 MCG PO QAM Ferrous Sulfate (Kp Ferrous Sulfate), 325 MG PO QAM Metformin Hcl (Glucophage), 1,000 MG PO BID Miconazole Nitrate (Topical) (Miconazole Nitrate), 1 APPLN TD QID Oxybutynin Chloride (Oxybutynin Chloride ER), 10 MG PO QAM Polyethylene Glycol 3350 (Miralax), 17 GM PO BID Rosuvastatin Calcium (Crestor), 10 MG PO HS Sennosides (Sennosides), 8.6 MG PO BID Sodium Chloride (Gu Irrigant) (Sodium Chloride 0.9%), 1,000 ML IV TID Sulfa/Trimethoprim (Bactrim Ds 800MG/160MG), 1 TAB PO BID Scheduled PRN Acetaminophen Tab (Tylenol), 650 MG PO Q4H PRN for Pain Meclizine Hcl (Meclizine Hcl), 25 MG PO TID PRN for Dizziness or Vertigo Ondansetron Hcl (Zofran), 4 MG PO Q6H PRN for Nausea Pramoxine Hcl-Zinc Oxide (Tronolane), 1 APPLN TD Q8 PRN for ITCHING Simethicone (Sm Gas Relief), 80 MG PO Q6H PRN for Gas or Constipation Tramadol (Ultram), 50 MG PO Q4H PRN for Pain Zolpidem Tartrate (Zolpidem Tartrate), 5 MG PO HS PRN for Insomnia Allergies Coded Allergies: No Known Allergies (Unverified , 11/29/17) Physical Exam Vital Signs Date Time Temp Pulse Resp B/P (MAP) Pulse Ox O2 Delivery O2 Flow Rate FiO2 12/25/17 01:05 87 18 154/82 95 Room Air 12/24/17 23:53 79 18 154/82 95 12/24/17 23:16 89 12/24/17 23:14 94 Room Air 12/24/17 23:11 36.7 90 20 166/86 95 Room Air Physical Exam GENERAL: Patient is awake and alert. He appears mildly anxious but overall comfortable. EYES: The conjunctivae are clear. The pupils are round and reactive. EARS, NOSE, MOUTH AND THROAT: The nose is without any evidence of any deformity. Mucous membranes are dry. Tongue is midline NECK: The neck is nontender and supple. RESPIRATORY: Normal respiratory effort is noted. There is no evidence of wheezing rhonchi or rales to auscultation. CARDIOVASCULAR: Regular rate and rhythm noted. There no murmurs rubs or gallops normal S1 normal S2 GASTROINTESTINAL: The abdomen is moderately distended and diffusely tender. No guarding or rigidity appreciated. Bowel sounds are present in all quadrants. Ostomy noted with output. BACK: No midline tenderness or or step-off noted range of motion in flexion extension as well as rotation no signs of muscle spasm noted. MUSCULOSKELETAL/EXTREMITIES: There is no evidence of gross deformity. Full range of motion is noted in the hips and shoulders. SKIN: There is no obvious evidence of any rash. There are no petechiae, pallor or cyanosis noted. Pedal edema noted bilaterally. NEUROLOGIC: Patient is awake alert and oriented x3. Medical Decision & Procedures ER Provider Diagnostic Interpretation: Radiology results as stated below per my review and radiologist interpretation: Chest x-ray per my review reveals mild cardiomegaly, no free air, no infiltrate. Elevation of right hemidiaphragm noted. Preliminary Findings Only See Final Report For Complete Findings CT ABDOMEN & PELVIS Without Contrast: Compared to 12/09/17. Markedly distended bladder with bilateral hydronephrosis. Bilateral perinephric stranding. No ureteral stone. Marks catheter noted with the balloon at the inferior posterior prostate. Prostatomegaly. Fluid and air in small bowel loops, query ileus, enteritis, or developing obstruction. Distal esophageal wall thickening. Small hiatal hernia. Stool-filled right colon. Redemonstration of postsurgical changes and air in the posterior pelvis. No organized fluid collection identified. Mild basilar atelectasis/infiltrate. Moderate pericardial fluid. Dense material in the gallbladder. Additional incidental findings similar to prior study. Radiologist: Chey Pierce M.D. Study ready at 23:59 and initial results transmitted at 01:02 Clear Time Type Notes 12/25/17 01:16 Verify Receipt Verified receipt with Automatic Gr[employer] Operator Nataly in the ER for Dr. Hale on 12/25 01:16 (-04:00) Laboratory Results Test 12/24/17 23:20 12/24/17 23:30 Immature Granulocyte % (Auto) 0.3 % White Blood Count 15.39 K/uL (4.8-10.8) Red Blood Count 3.88 M/uL (4.7-6.1) Hemoglobin 10.5 g/dL (14.0-18.0) Hematocrit 32.8 % (42-52) Mean Corpuscular Volume 84.5 fL (80-100) Mean Corpuscular Hemoglobin 27.1 pg (25-34) Mean Corpuscular Hemoglobin Concent 32.0 g/dl (32-36) Platelet Count 350 K/uL (130-400) Mean Platelet Volume 9.7 fL (7.4-10.4) Neutrophils (%) (Auto) 90.5 % Lymphocytes (%) (Auto) 3.5 % Monocytes (%) (Auto) 5.4 % Eosinophils (%) (Auto) 0.1 % Basophils (%) (Auto) 0.2 % Neutrophils # (Auto) 13.94 K/uL (1.4-6.5) Lymphocytes # (Auto) 0.54 K/uL (1.2-3.4) Monocytes # (Auto) 0.83 K/uL (0.11-0.59) Eosinophils # (Auto) 0.01 K/uL (0-0.5) Basophils # (Auto) 0.03 K/uL (0-0.2) Immature Granulocyte # (Auto) 0.04 K/uL (0.00-0.02) Prothrombin Time 11.1 SECONDS (9.0-12.0) Prothromb Time International Ratio 1.1 (0.9-1.1) Activated Partial Thromboplast Time 28.0 SECONDS (21.0-31.0) Partial Thromboplastin Ratio 1.1 Total Bilirubin 0.2 mg/dl (0.2-1) Direct Bilirubin < 0.1 mg/dl (0-0.2) Aspartate Amino Transf (AST/SGOT) 8 U/L (15-37) Alanine Aminotransferase (ALT/SGPT) 10 U/L (12-78) Alkaline Phosphatase 92 U/L (45-117) Troponin I < 0.015 ng/ml (0-0.045) Total Protein 7.5 gm/dl (6.4-8.2) Albumin 2.8 gm/dl (3.4-5.0) Lipase 41 U/L (73-393) Thyroid Stimulating Hormone (TSH) 0.620 uIu/ml (0.300-4.500) Urine Color ORANGE Urine Appearance TURBID (CLEAR) Urine pH 5.5 (4.5-7.5) Urine Specific [place] 1.018 (1.000-1.030) Urine Protein 4+ (NEG) Urine Glucose (UA) NEG (NEG) Urine Ketones NEG (NEG) Urine Occult Blood 3+ (NEG) Urine Nitrite NEG (NEG) Urine Bilirubin NEG (NEG) Urine Urobilinogen NEG (NEG) Urine Leukocyte Esterase LARGE (NEG) Urine WBC (Auto) >30 /hpf (0-5) Urine RBC (Auto) 10-30 /hpf (0-4) Urine Hyaline Casts (Auto) 1-5 /lpf (0-5) Urine Epithelial Cells (Auto) 20-30 /lpf (0-5) Urine Bacteria (Auto) NEG (NEG) Urine Crystals (NONE PRSENT) Urine Pathogenic Casts /lpf (0) Urine Yeast (Auto) BUD W/ HYPHAE (NONE PRSENT) Laboratory results per my review. Medications Administered Medications (Trade) Dose Ordered Sig/[place] Route Start Time Stop Time Status Last Admin Dose Admin Sodium Chloride 1,000 ml @ 999 mls/hr Q1H1M STAT IV 12/24/17 23:16 12/25/17 00:16 DC 12/24/17 23:59 999 MLS/HR Calcium Gluconate (Calcium Gluconate 10%) 1,000 mg NOW STAT IV 12/25/17 00:34 12/25/17 00:35 DC 12/25/17 00:52 1,000 MG Sodium Chloride 1,000 ml @ 999 mls/hr Q1H1M STAT IV 12/25/17 00:34 12/25/17 01:34 DC 12/25/17 01:50 999 MLS/HR Insulin Human Regular (novoLIN-R U-100 PER UNIT) 10 units NOW STAT IV 12/25/17 00:34 12/25/17 00:35 DC 12/25/17 00:56 10 UNITS Dextrose (Dextrose 50% 50ML Syringe) 50 ml NOW STAT IV 12/25/17 00:34 12/25/17 00:35 [place] 12/25/17 00:53 50 ML Ceftriaxone Sodium (Rocephin Inj) 1 gm NOW STAT IV 12/25/17 00:34 12/25/17 00:35 [place] 12/25/17 00:53 1 GM Ondansetron HCl (Zofran Inj) 4 mg Q6H PRN IV 12/25/17 03:00 01/24/18 02:59 12/25/17 05:07 4 MG Lorazepam (Ativan Inj) 0.5 mg NOW STAT IV 12/25/17 03:00 12/25/17 03:11 DC 12/25/17 03:19 0.5 MG ECG Per My Interpretation Indication: other (abnormal lab results) Rate (beats per minute): 79 Rhythm: normal sinus Findings: T-wave inversion (Lateral), no ectopy Comparison ECG Date: 11/16/17 Change: no significant change ED Course 2312: The patient was evaluated in room C6. A complete history and physical examination were performed. 2316: Ordered Sodium Chloride 1000 ml @ 999 mls/hr IV. 0034: Ordered Rocephin 1 gm IV, Dextrose 50 ml IV, Insulin Human Regular 10 units IV, Sodium Chloride 1000 ml @ 999 mls/hr IV, Calcium Gluconate 1000 mg IV 0040: I spoke to Dr. Holt - Urology. He will see if he can install a Marks catheter. 0106: I checked on the patient. Dr. Holt is currently attempting to put in catheter. 0110: I spoke with Dr. Beal - [facility] Hospitalist. He will reevaluate the patient for hospitalization. 0145: The patient's suprapubic catheter is finished. 0300: I checked on the patient, who is doing well. Medical Decision Differential diagnosis: Etiologies such as metabolic, infection, hypo/hyperglycemia, electrolyte abnormalities, cardiac sources, intracerebral event, toxicologic, neurologic, as well as others were entertained. Nursing notes reviewed. The patient's outpatient laboratory studies were reviewed. The patient is a 77-year-old male who presented to the emergency department with multiple complaints. The patient was recently at [facility] for surgery. The patient was diagnosed with rectal cancer and had surgical removal of this area. He has a diverting colostomy now. 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 While he was in the operating room approximately 1 week ago he had a Marks catheter placed. This was to try to treat the fistula area. The patient was found to have signs of renal failure on outpatient laboratory study and was then sent to the emergency department for further evaluation. The patient's abdomen was very distended. There was only bloody urine noted in the Marks catheter and it did not appear to be draining. CT the abdomen and pelvis was obtained and did not reveal signs of bowel obstruction but rather showed significant urinary retention. It is likely this is the cause of the patient's renal failure. The Marks catheter could be noted not in the bladder. I made multiple attempts with nursing staff to try to replace the Marks catheter and did not successfully place a Marks catheter. I discussed the case with the on-call urologist who presented to the emergency department immediately. The on-call urologist was able to place a suprapubic catheter with good drainage of urine. Patient's abdomen was significantly improved and he even started having output in his ostomy bag. The patient was reevaluated multiple times. He was treated with IV fluids IV antibiotics IV calcium IV dextrose and IV insulin. I discussed patient's laboratory and radiographic studies with him and I also discussed his case with the on-call [facility] hospitalist group. They have agreed to evaluate patient in the emergency department for further management and disposition. Medication Reconcilliation Current Medication List: was personally reviewed by me Blood Pressure Screening Patient's blood pressure: Elevated blood pressure Blood pressure disposition: Referred to PCP Consults Time Called: 003 Consulting Physician: Dr. Jonathon Bains Returned Call: [address] Jonathon Bains. He will see if he can install a Marks catheter. Additional Consults: Time Called: 010 Consulted Physician: Dr. Emigdio Rodriguez [facility] Hospitalist Returned Call: 0110 Additional Comments: I spoke with Dr. Emigdio Rodriguez [facility] Hospitalist. He will reevaluate the patient for hospitalization. Impression Primary Impression: Obstructive uropathy Additional Impressions: UTI (urinary tract infection) Acute renal failure Hyperkalemia Metabolic acidosis Urinary retention Critical Care I have personally spent greater than 60 minutes of critical care time in the direct management of this patient. This includes bedside care, interpretation of diagnostic studies, and testing, discussion with consultants, patient, and family members, and other required patient management activities. This 60 minutes is in excess of all separately billable procedures. Scribe Attestation The scribe's documentation has been prepared under my direction and personally reviewed by me in its entirety. I confirm that the note above accurately reflects all work, treatment, procedures, and medical decision making performed by me. Departure Information Dispostion Being Evaluated By Hospitalist Referrals Lavinia Mcclure (PCP) Patient Instructions My [facility] Problem Qualifiers Additional Impressions: UTI (urinary tract infection) Urinary tract infection type: site unspecified Hematuria presence: with hematuria Qualified Codes: N39.0 - Urinary tract infection, site not specified ; R31.9 - Hematuria, unspecified Acute renal failure Acute renal failure type: unspecified Qualified Codes: N17.9 - Acute kidney failure, unspecified
[2017-12-24 23:39] LABS: BASO % 0.2 %; BASO ABS # 0.03 K/uL (0-0.2); EOS % 0.1 %; EOS ABS # 0.01 K/uL (0-0.5); HEMATOCRIT 32.8 % (42-52); HEMOGLOBIN 10.5 g/dL (14.0-18.0); IG# 0.04 K/uL (0.00-0.02); LYMPH % 3.5 %; LYMPH ABS # 0.54 K/uL (1.2-3.4); MEAN CELL VOLUME 84.5 fL (80-100); MEAN CORPUSCULAR HEMOGLOBIN 27.1 pg (25-34); MEAN PLATELET VOLUME 9.7 fL (7.4-10.4); MONO % 5.4 %; MONO ABS # 0.83 K/uL (0.11-0.59); NEUT % 90.5 %; NEUT ABS # 13.94 K/uL (1.4-6.5); PLATELET COUNT 350 K/uL (130-400); RED CELL DISTRIBUTION WIDTH CV 16.3 % (11.5-14.5); RED CELL DISTRIBUTION WIDTH SD 50.5 fL (36.4-46.3); WHITE BLOOD COUNT 15.39 K/uL (4.8-10.8)
[2017-12-24 23:51] LABS: INR 1.1 (0.9-1.1)
[2017-12-25] VITALS (7 sets, daily range): BP systolic 122–139; BP diastolic 51–77; PULSE 65–82; TEMP 36.4–36.8; O2SAT 92–96; BMI 24.3; BMI 24.6
[2017-12-25 00:15] LABS: ALBUMIN 2.8 gm/dl (3.4-5.0); ALKALINE PHOSPHATASE 92 U/L (45-117); ALT/SGPT 10 U/L (12-78); AST/SGOT 8 U/L (15-37); BLOOD UREA NITROGEN 54 mg/dl (7-18); CALCIUM 9.1 mg/dl (8.5-10.1); CARBON DIOXIDE 16 mmol/L (21-32); GLUCOSE 108 mg/dl (70-99); LIPASE 41 U/L (73-393); PHOSPHORUS 5.5 mg/dl (2.5-4.9); POTASSIUM 5.8 mmol/L (3.5-5.1); SODIUM 129 mmol/L (136-145); TOTAL PROTEIN 7.5 gm/dl (6.4-8.2)
[2017-12-25] MEDS ORDERED: SULF800T23 PO (00:19)
[2017-12-25] MEDS ORDERED: CRS/10 PO (00:22)
[2017-12-25] MEDS ORDERED: FERR1TAB13 PO (00:24)
[2017-12-25] MEDS ORDERED: MECL1TAB42 PO (00:25)
[2017-12-25] MEDS ORDERED: METF-384 PO (00:27)
[2017-12-25] MEDS ORDERED: MICO1POW8 TD (00:31)
[2017-12-25] MEDS ORDERED: CEFTRIAXONE SOD INJ 1 GM ADDVIAL IV STA (00:34)
[2017-12-25] MEDS ORDERED: NovoLIN-R INSULIN PER UNIT CHARGE IV STA (00:34)
[2017-12-25] MEDS ORDERED: SODIUM CHLORIDE 0.9% 1000ML 1,000 ML IV STA (00:34)
[2017-12-25] MEDS ORDERED: DEXTROSE 50% 50 ML SYR IV STA (00:34)
[2017-12-25] MEDS ORDERED: CALCIUM GLUCONATE 10% 10 ML VIAL IV STA (00:34)
[2017-12-25] MEDS ORDERED: POLY335019 PO (00:38)
[2017-12-25] MEDS ORDERED: DTRSR/10 PO (00:40)
[2017-12-25] MEDS ORDERED: PRAM1CRE4 TD (00:42)
[2017-12-25] MEDS ORDERED: SENN8.6T94 PO (00:44)
[2017-12-25] MEDS ORDERED: SIME80CH23 PO (00:46)
[2017-12-25] MEDS ORDERED: SODI0.9I55 IV (00:48)
[2017-12-25] MEDS ORDERED: [UNRECOGNIZED DRUG - CODE] IV (00:51)
[2017-12-25] MEDS ORDERED: SODI0.9S (00:51)
[2017-12-25] MEDS ORDERED: ACET-1693 PO (00:56)
[2017-12-25] MEDS ORDERED: ONDA4TAB46 PO (00:57)
[2017-12-25] MEDS ORDERED: ZOLP5TAB6 PO (00:59)
[2017-12-25] MEDS ORDERED: LIDOCAINE 2% JELLY 5 ML TUBE ONE (01:13)
[2017-12-25] MEDS ORDERED: LIDOCAINE HCL 1% 20 ML VIAL ONE (01:15)
--- NOTE | 2017-12-25 02:16 | History and Physical ---
History & Physical Date & Time of Service: Dec 25, 2017 at 02:07 Chief Complaint: Abnormal Labs/Abdominal Pain Primary Care Physician: Lavinia Mcclure History of Present Illness Source: patient, hospital records, other 77 y/o M Hx HPL, DM II, anemia, BPH with urinary retention, rectal CA - chemo, radiation and recent perineal resection with colostomy placement. The pt had surgery on 10/31 at [place]. He had urinary retention at the time and has had a Marks in place since then. He is currently recovering at [facility]. He was at the Urologist's office one week prior for removal of the Marks and a voiding trial. The urologist noted a sinus tract draining in the perineal area and attempts to reinsert the Marks following removal were not successful. He was transferred back to [place] therefore. He spent an additional 3 days hospitalized. A Marks was reinserted and he was transferred back to a [facility]. Over the past day he has noted poor urinary output. Labs were obtained at [facility] and were notable for ARF with hyperkalemia in addition to leukocytosis and a (+) UA. The pt was then sent to the ER. A CT was obtained demonstrating a Marks with a balloon which appeared to be inflated near the prostate rather than in the bladder which was markedly distended. BL hydronephrosis and perinephric stranding were noted as well. The urologist philosophy and religion instructor was contacted and following evaluation, placed a suprapubic catheter. The pt is admitted due to obstructive renal failure, hyperkalemia and a persistent UTI. He has not complained of abdominal or suprapubic pain and may be unable to discern pain in the area as a result of surgery. Past Medical/Surgical History 1) Rectal cancer - treated with chemo, radiation and then resection 2) Syncope leading to C1 cervical fracture 3) Hypertension 4) Hyperlipidemia 5) Diabetes 6) BPH - with urinary retention 7) UTI Surgical History: Laparoscopic abdominal perineal resection with end colostomy on 10/31/17 Rotator cuff - bilaterally Hernia repair Family History No significant family history Social History Smoking Status: Never Smoker Drug Use: none Marital Status: Housing status: lives alone Occupational Status: retired Allergies Coded Allergies: No Known Allergies (Unverified , 11/29/17) Home Medications Scheduled Aspirin (Aspirin Ec), 81 MG PO DAILY Cholecalciferol (Vitamin D3), 1,000 UNITS PO QAM Cyanocobalamin (Vitamin B-12), 1,000 MCG PO QAM Ferrous Sulfate (Kp Ferrous Sulfate), 325 MG PO QAM Metformin Hcl (Glucophage), 1,000 MG PO BID Miconazole Nitrate (Topical) (Miconazole Nitrate), 1 APPLN TD QID Oxybutynin Chloride (Oxybutynin Chloride ER), 10 MG PO QAM Polyethylene Glycol 3350 (Miralax), 17 GM PO BID Rosuvastatin Calcium (Crestor), 10 MG PO HS Sennosides (Sennosides), 8.6 MG PO BID Sodium Chloride (Gu Irrigant) (Sodium Chloride 0.9%), 1,000 ML IV TID Sulfa/Trimethoprim (Bactrim Ds 800MG/160MG), 1 TAB PO BID Scheduled PRN Acetaminophen Tab (Tylenol), 650 MG PO Q4H PRN for Pain Meclizine Hcl (Meclizine Hcl), 25 MG PO TID PRN for Dizziness or Vertigo Ondansetron Hcl (Zofran), 4 MG PO Q6H PRN for Nausea Pramoxine Hcl-Zinc Oxide (Tronolane), 1 APPLN TD Q8 PRN for ITCHING Simethicone (Sm Gas Relief), 80 MG PO Q6H PRN for Gas or Constipation Tramadol (Ultram), 50 MG PO Q4H PRN for Pain Zolpidem Tartrate (Zolpidem Tartrate), 5 MG PO HS PRN for Insomnia Review of Systems Constitutional: + weakness, No fever, No chills, No sweats Eyes: No worsening of vision ENT: No hearing loss, No unusual epistaxis, No nasal symptoms Respiratory: No cough, No sputum, No wheezing Cardiovascular: No chest pain, No orthopnea Abdomen: No pain, No nausea, No vomiting Musculoskeletal: No joint pain Genitourinary - Male: + urinary retention, No hematuria Neurologic: + weakness, No memory loss, No paralysis Psychiatric: No depression symptoms Endocrine: + fatigue Hematologic / Lymphatic: No abnormal bleeding/bruising Integumentary: No rash Allergic / Immunologic: No environmental allergies Physical Exam Vital Signs Date Time Temp Pulse Resp B/P (MAP) Pulse Ox O2 Delivery O2 Flow Rate FiO2 12/25/17 01:05 87 18 154/82 95 Room Air 12/24/17 23:53 79 18 154/82 95 12/24/17 23:16 89 12/24/17 23:14 94 Room Air 12/24/17 23:11 36.7 90 20 166/86 95 Room Air General Appearance: + pertinent finding (Pale. elderly male, AAO x 3 - no distress) Head: normocephalic Eyes: normal inspection ENT: normal ENT inspection, pharynx normal Neck: supple, no JVD Respiratory/Chest: chest non-tender, lungs clear, normal breath sounds Cardiovascular: regular rate, rhythm, no edema, no gallop Abdomen/GI: + pertinent finding (Colostomy bag functional, suprapubic cath in place at time of admission - there is a sinus tract at the rectal area) Genitourinary - Male: + pertinent finding (Mild erythema of penis) Back: normal inspection, no CVA tenderness Extremities/Musculoskelatal: normal inspection, no calf tenderness, normal capillary refill Neurologic/Psych: dowel inspector II-XII nml as tested, no motor/sensory deficits, alert, oriented x 3 Skin: warm/dry, + pallor Diagnostics Laboratory Results Results Past 24 Hours Test 12/24/17 23:20 12/24/17 23:30 Range/Units White Blood Count 15.39 4.8-10.8 K/uL Red Blood Count 3.88 4.7-6.1 M/uL Hemoglobin 10.5 14.0-18.0 g/dL Hematocrit 32.8 42-52 % Mean Corpuscular Volume 84.5 80-100 fL Mean Corpuscular Hemoglobin 27.1 25-34 pg Mean Corpuscular Hemoglobin Concent 32.0 32-36 g/dl Platelet Count 350 130-400 K/uL Mean Platelet Volume 9.7 7.4-10.4 fL Neutrophils (%) (Auto) 90.5 % Lymphocytes (%) (Auto) 3.5 % Monocytes (%) (Auto) 5.4 % Eosinophils (%) (Auto) 0.1 % Basophils (%) (Auto) 0.2 % Neutrophils # (Auto) 13.94 1.4-6.5 K/uL Lymphocytes # (Auto) 0.54 1.2-3.4 K/uL Monocytes # (Auto) 0.83 0.11-0.59 K/uL Eosinophils # (Auto) 0.01 0-0.5 K/uL Basophils # (Auto) 0.03 0-0.2 K/uL RDW Standard Deviation 50.5 36.4-46.3 fL RDW Coefficient of Variation 16.3 11.5-14.5 % Immature Granulocyte % (Auto) 0.3 % Immature Granulocyte # (Auto) 0.04 0.00-0.02 K/uL Prothrombin Time 11.1 9.0-12.0 SECONDS Prothromb Time International Ratio 1.1 0.9-1.1 Activated Partial Thromboplast Time 28.0 21.0-31.0 SECONDS Partial Thromboplastin Ratio 1.1 Sodium Level 129 136-145 mmol/L Potassium Level 5.8 3.5-5.1 mmol/L Chloride Level 97 98-107 mmol/L Carbon Dioxide Level 16 21-32 mmol/L Anion Gap 16.0 3-11 mmol/L Blood Urea Nitrogen 54 7-18 mg/dl Creatinine 6.10 0.60-1.40 mg/dl Est Creatinine Clear Calc Drug Dose 10.1 ml/min Estimated GFR () 9.4 Estimated GFR (Non- 8.1 BUN/Creatinine Ratio 8.9 10-20 Random Glucose 108 70-99 mg/dl Calcium Level 9.1 8.5-10.1 mg/dl Phosphorus Level 5.5 2.5-4.9 mg/dl Magnesium Level 2.6 1.8-2.4 mg/dl Total Bilirubin 0.2 0.2-1 mg/dl Direct Bilirubin < 0.1 0-0.2 mg/dl Aspartate Amino Transf (AST/SGOT) 8 15-37 U/L Alanine Aminotransferase (ALT/SGPT) 10 12-78 U/L Alkaline Phosphatase 92 45-117 U/L Troponin I < 0.015 0-0.045 ng/ml Total Protein 7.5 6.4-8.2 gm/dl Albumin 2.8 3.4-5.0 gm/dl Lipase 41 73-393 U/L Thyroid Stimulating Hormone (TSH) 0.620 0.300-4.500 uIu/ml Urine Color ORANGE Urine Appearance TURBID CLEAR Urine pH 5.5 4.5-7.5 Urine Specific Lynn 1.018 1.000-1.030 Urine Protein 4+ NEG Urine Glucose (UA) NEG NEG Urine Ketones NEG NEG Urine Occult Blood 3+ NEG Urine Nitrite NEG NEG Urine Bilirubin NEG NEG Urine Urobilinogen NEG NEG Urine Leukocyte Esterase LARGE NEG Urine WBC (Auto) >30 0-5 /hpf Urine RBC (Auto) 10-30 0-4 /hpf Urine Hyaline Casts (Auto) 1-5 0-5 /lpf Urine Epithelial Cells (Auto) 20-30 0-5 /lpf Urine Bacteria (Auto) NEG NEG Urine Crystals NONE PRSENT Urine Pathogenic Casts 0 /lpf Urine Yeast (Auto) BUD W/ HYPHAE NONE PRSENT Microbiology Results 12/24/17 Urine Culture, Received Pending Diagnostic Radiology CT abdomen: Distended bladder - BL hydro and stranding. Marks balloon inflated at prostate , fluid and air in bowel may indicate evolving obstruction EKG NSR - no peaked T waves or changes consistent with hyperkalemia. Impression Assessment and Plan 77 y/o M Hx HPL, DM II, anemia, BPH with urinary retention, rectal CA - chemo, radiation and recent perineal resection with colostomy placement. The pt had surgery on 10/31 at [place]. He had urinary retention at the time and has had a Marks in place since then. He is currently recovering at [facility]. He was at the Urologist's office one week prior for removal of the Marks and a voiding trial. The urologist noted a sinus tract draining in the perineal area and attempts to reinsert the Marks following removal were not successful. He was transferred back to [place] therefore. He spent an additional 3 days hospitalized. A Marks was reinserted and he was transferred back to [facility]. Over the past day he has noted poor urinary output. Labs were obtained at [facility] and were notable for ARF with hyperkalemia in addition to leukocytosis and a (+) UA. The pt was then sent to the ER. A CT was obtained demonstrating a Marks with a balloon which appeared to be inflated near the prostate rather than in the bladder which was markedly distended. BL hydronephrosis and perinephric stranding were noted as well. The urologist philosophy and religion instructor was contacted and following evaluation, placed a suprapubic catheter. The pt is admitted due to obstructive renal failure, hyperkalemia and a persistent UTI. 1) ARF due to obstructive uropathy, hyperkalemia. Urology consulted and suprapubic catheter placed. Aggressive IVF provided and labs will be trended. The pt is assigned to telemetry n the interim. The pt requested that Dr Abreu at [place] be contacted to determine the course of treatment after his ARF is treated. 2) DM II - placed on a SS - Metformin held. 3) HPL - cont Crestor 4) Anemia - continue iron supplements - Hb is above baseline on admission 5) Rectal CA - course of treatment going forward has not yet been decided. He can f/u at [place] upon DC. Full code - SCDs - would start Heparin within a day if he remains hospitalized and does not require an additional procedure Total time for this admit including review of labs, meds, imaging, extensive records - discussion with pt and ER attending - 45 min Resuscitation Status VTE Prophylaxis Will order VTE Prophylaxis: Yes
[2017-12-25] MEDS ORDERED: MECLIZINE HCL 25 MG TAB PO PRN (03:00)
[2017-12-25] MEDS ORDERED: ALUMINUM/MAGNESIUM/SIMETH (MAALOX MAX) 30 ML UDC PO PRN (03:00)
[2017-12-25] MEDS ORDERED: MAGNESIUM HYDROXIDE SUSP 30 ML UDC PO PRN (03:00)
[2017-12-25] MEDS ORDERED: ZOLPIDEM TARTRATE 5 MG TAB PO PRN (03:00)
[2017-12-25] MEDS ORDERED: SIMETHICONE 80 MG CHEW PO PRN (03:00)
[2017-12-25] MEDS ORDERED: POLYETHYLENE (MIRALAX) 17 GM PACK PO PRN (03:00)
[2017-12-25] MEDS ORDERED: LORAZEPAM 2 MG/ML 1 ML VIAL IV STA (03:00)
[2017-12-25] MEDS ORDERED: TRAMADOL HCL 50 MG TAB PO PRN (03:00)
--- NOTE | 2017-12-25 03:41 | GENITOURINARY CONSULTATION ---
DATE OF CONSULTATION: 12/25/2017 REASON FOR THE CONSULT: Acute renal failure, bladder outlet obstruction with urinary retention and renal failure secondary to this as well as urethrocutaneous fistula with recent surgery or Marks placement at [place] for this. HISTORY OF PRESENTATION: The patient is a 77-year-old male who had recent surgery in October for rectal cancer. Postoperatively, the patient was seen because he was having problems with urinary retention by Dr. Eddy. He was unable to void. Dr. Eddy did a cystoscopy in the office on him subsequent to the surgery and during the cystoscopy, it was noted that the patient had fluid coming from his perineum. He was diagnosed with a perineal fistula and he was sent to [place] for treatment of this. Apparently, the patient went down to [place] a week ago last or approximately 10 days ago and stayed over the weekend for what the patient can explain to me he had the catheter placed and the plan was to leave the catheter in until 02/12/2018 with the hope that the urethra would heal around the catheter. The patient presented to the Emergency Room this evening with increasing abdominal distention and renal failure with elevated potassium. The patient was at [place] 10 days ago, had a catheter placed, apparently was going to let this heal and the CT scan tonight showed that the patient had a full bladder up to his umbilicus with the catheter balloon apparently in the prostatic urethra. Attempts here by the Emergency Room staff with several catheters including a Coude and a straight catheter were unsuccessful. There appeared to be some urine, so the balloon was inflated, but it was not in his bladder and was not draining properly. I examined the patient tonight. He is not on any blood thinners except for aspirin. His pro-time was normal and I felt that attempts to go from below tonight with a cystoscope would be more trauma than was necessary and given the patient's main problem was renal failure with potassium elevation, I elected to place a suprapubic catheter. I did place a Stamey 14-Occitan suprapubic catheter. First, I prepped and draped the patient with Betadine, then injected him with lidocaine just above the pubis. Someone was holding up his belly so that the pannus was slightly elevated, so that it was going a short space, so several centimeters above the pubic bone I injected and then injected down further with the longer needle, then I placed a spinal needle until I was sure that I had urine coming out. Using that estimated length, I made an incision in the midline several centimeters above the pubic bone and placed the Stamey suprapubic catheter until there was urine return. The patient drained over a liter and a half of urine. At the end, it was very cloudy. There is not any significant blood in the drainage and this was sewn into place with a 2-0 nylon suture in 3 places. The patient is to be admitted by medicine for treatment for his renal failure as well as a possible infection. PAST MEDICAL HISTORY: Significant for BPH, diverticulosis, rectal cancer with surgery, renal insufficiency. PAST SURGICAL HISTORY: Back surgery, rectal surgery, hernia repair, rotator cuff surgery as well as a recent apparent cystoscopy. FAMILY HISTORY: Shows a history of prostate cancer. SOCIAL HISTORY: He is a social drinker, never smoked. He is . MEDICATIONS: His only medications currently aspirin. ALLERGIES: HE HAS AN ALLERGY TO LIPITOR. REVIEW OF SYSTEMS: CONSTITUTIONAL: The patient denies any headache or mental status changes. RESPIRATORY: No breathing difficulties. CARDIAC: No chest pain. HEENT: Significant for dry mouth but otherwise unremarkable. SKIN: Unremarkable. ABDOMEN: Significant for a colostomy as well as some sutures below the colostomy and a very distended abdomen that was consistent with a distended bladder. GENITOURINARY: He had a normal male phallus. Testes descended and perineum was closed. I did not see obvious drainage from his perineum. EXTREMITIES: Unremarkable. LABORATORY DATA: His white blood cell count actually is 15.39. His hematocrit was 32.8, platelet count is normal at 350. Coags were normal. Chemistry significant for creatinine of 6.1 and potassium of 5.8. Urine was clearly infected with both yeast and significant large number of white blood cells. 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 PLAN: Suprapubic tube has been placed. The hospitalist will admit the patient for observation, IV antibiotics, and hydration and will need to discuss with [facility] management of the perineal fistula, whether it is important to attempt to replace the catheter, but will let the urethra rest for the time being. CHENG
[2017-12-25] MEDS: SODIUM CHLORIDE 0.9% 1000ML 1,000 ML IV SCH ×3 (05:07→15:30)
[2017-12-25] MEDS: ONDANSETRON INJ 2 MG/ML 2 ML VIAL IV PRN (05:07)
[2017-12-25 05:08] LABS: HEMATOCRIT 31.1 % (42-52); MEAN CELL VOLUME 84.5 fL (80-100); MEAN CORPUSCULAR HEMOGLOBIN 27.2 pg (25-34); MEAN CORPUSCULAR HGB CONC 32.2 g/dl (32-36); MEAN PLATELET VOLUME 10.3 fL (7.4-10.4); PLATELET COUNT 357 K/uL (130-400); RED CELL DISTRIBUTION WIDTH CV 16.6 % (11.5-14.5); RED CELL DISTRIBUTION WIDTH SD 51.4 fL (36.4-46.3); WHITE BLOOD COUNT 13.39 K/uL (4.8-10.8)
--- NOTE | 2017-12-25 05:58 | DIAGNOSTIC IMAGING REPORT ---
CHEST ONE VIEW PORTABLE CLINICAL HISTORY: EVALUATE ALTERED MENTAL STATUS/WEAKNESS dyspnea COMPARISON STUDY: 11/16/2017 FINDINGS: Mild emphysematous change. Mild chronic elevation right hemidiaphragm. Several old healed right-sided rib fractures. IMPRESSION: No acute process. The above report was generated using voice recognition software. It may contain grammatical, syntax or spelling errors. Electronically signed by: Fredo Tay M.D. 12/25/2017 5:56 AM Dictated Date/Time: 12/25/2017 5:54 AM
--- NOTE | 2017-12-25 06:09 | DIAGNOSTIC IMAGING REPORT ---
ABD/PELVIS NO IV OR ORAL CONT CT DOSE: 482.20 mGy.cm HISTORY: Postoperative pain tacos lfailure TECHNIQUE: Multiaxial CT images of the abdomen and pelvis were performed without contrast. A dose lowering technique was utilized adhering to the principles of ALARA. COMPARISON STUDY: 12/09/2017 FINDINGS: Lung bases are clear. Operative changes consistent with a abdominal perineal resection. Persistent soft tissue and air within the presacral precoccygeal region. This is similar as compared to the prior study. This may be entirely postoperative although a small phlegmon is not excluded. Moderate bladder distention. Mild increase in fecal load throughout components of the right side of the colon. Kidneys are remarkable for moderate perinephric fat stranding and mild distention of the renal pelvis. Ureters are mildly distended. This may be secondary to the significant bladder distention. There is small pericardial effusion unchanged in the prior exam. There is small fixed lateral hernia also unchanged. IMPRESSION: 1. Postoperative changes again noted consistent with an AP resection. 2. Soft tissue and gas within the presacral presacrococcygeal region similar as compared to the prior study. This may be entirely postoperative although early phlegmon formation is not excluded. Follow-up at a later date if clinically indicated is suggested. 3. Bladder distention with secondary mild bilateral renal hydronephrosis. 4. Prostatic enlargement. The above report was generated using voice recognition software. It may contain grammatical, syntax or spelling errors. Electronically signed by: Fredo Tay M.D. 12/25/2017 6:08 AM Dictated Date/Time: 12/25/2017 6:02 AM
[2017-12-25 06:31] LABS: CALCIUM 8.9 mg/dl (8.5-10.1); CREATININE 5.4 mg/dl (0.60-1.40); PHOSPHORUS 5.4 mg/dl (2.5-4.9); POTASSIUM 5.4 mmol/L (3.5-5.1)
[2017-12-25] MEDS: OXYBUTYNIN CHLORIDE 5 MG TABCR PO SCH (07:28)
[2017-12-25] MEDS: FERROUS SULFATE 325 MG TAB PO SCH (07:28)
[2017-12-25] MEDS: ASPIRIN 81 MG ECTAB PO SCH (07:28)
[2017-12-25] MEDS: POLYETHYLENE (MIRALAX) 17 GM PACK PO SCH ×2 (07:28→21:19)
[2017-12-25] MEDS: CYANOCOBALAMIN 500 MCG TAB (VIT B-12) PO SCH (07:29)
[2017-12-25] MEDS: CHOLECALCIFEROL 1000 INTER.UNIT TAB PO SCH (07:29)
[2017-12-25] MEDS: SENNA 8.6 MG TAB PO SCH ×2 (07:29→21:19)
--- NOTE | 2017-12-25 10:53 | Family Medicine Progress Note ---
Progress Note Date of Service Dec 25, 2017. Subjective Pt evaluation today including: conversation w/ patient, physical exam, chart review, lab review, review of studies, review of inpatient medication list Pain: States has some pain where procedures done Voiding: voiding difficulty (suprapubic cath in place) Pt is 77yo male with PMHx of rectal cancer, HPL, DMII and anemia admitted for management of ARF due to obstructive uropathy, hyperkalemia and a UTI. Pt is verbal but a bit confused. Upon entry asked me for 50 cents and didn't know where he was. Was oriented to name and month however. Also inquired about whether Dr. Abreu knew about his case and wanted to know which physicians were treating him here. Denied SOB, chest pain, palpitations and abdominal pain. Constitutional: No fever, No chills Respiratory: No shortness of breath Cardiovascular: No chest pain, No palpitations Abdomen: No pain Male : No dysuria Medications Current Inpatient Medications Medications (Trade) Dose Ordered Sig/Omaira Route Start Time Stop Time Status Last Admin Dose Admin Acetaminophen (Tylenol Tab) 650 mg Q4H PRN PO 12/25/17 03:00 01/24/18 02:59 Al Hydrox/Mg Hydrox/Simethicone (Maalox Max Susp) 15 ml Q4H PRN PO 12/25/17 03:00 01/24/18 02:59 Magnesium Hydroxide (Milk Of Magnesia Susp) 30 ml Q12H PRN PO 12/25/17 03:00 01/24/18 02:59 Zolpidem Tartrate (Ambien Tab) 5 mg HSZ PRN PO 12/25/17 03:00 01/24/18 02:59 Ondansetron HCl (Zofran Inj) 4 mg Q6H PRN IV 12/25/17 03:00 01/24/18 02:59 12/25/17 05:07 4 MG Polyethylene (Miralax Powder Packet) 17 gm DAILY PRN PO 12/25/17 03:00 01/24/18 02:59 Aspirin (Ecotrin Tab) 81 mg DAILY PO 12/25/17 09:00 01/24/18 08:59 12/25/17 07:28 81 MG Cholecalciferol (Vitamin D Tab) 1,000 inter.unit QAM PO 8/5/18 09:00 01/24/18 08:59 12/25/17 07:29 1,000 INTER.UNIT Cyanocobalamin (Vitamin B-12 Tab) 1,000 mcg QAM PO 12/25/17 09:00 01/24/18 08:59 12/25/17 07:29 1,000 MCG Meclizine HCl (Antivert Tab) 25 mg TID PRN PO 12/25/17 03:00 01/24/18 02:59 Rosuvastatin Calcium (Crestor Tab) 10 mg HS PO 12/25/17 21:00 01/24/18 20:59 Senna (Senokot Tab) 8.6 mg BID PO 12/25/17 09:00 01/24/18 08:59 12/25/17 07:29 8.6 MG Simethicone (Mylicon Chew Tab) 80 mg Q6H PRN PO 12/25/17 03:00 01/24/18 02:59 Tramadol HCl (Ultram Tab) 50 mg Q4H PRN PO 12/25/17 03:00 01/24/18 02:59 Ferrous Sulfate (Feosol Tab) 325 mg QAM PO 12/25/17 09:00 01/24/18 08:59 12/25/17 07:28 325 MG Oxybutynin Chloride (Ditropan-Xl Tab) 10 mg QAM PO 12/25/17 09:00 01/24/18 08:59 12/25/17 07:28 10 MG Polyethylene (Miralax Powder Packet) 17 gm BID PO 12/25/17 09:00 01/24/18 08:59 12/25/17 07:28 17 GM Sodium Chloride 1,000 ml @ 200 mls/hr Q5H IV 12/25/17 04:15 12/25/17 19:14 12/25/17 10:05 200 MLS/HR Objective Vital Signs Date Time Temp Pulse Resp B/P (MAP) Pulse Ox O2 Delivery O2 Flow Rate FiO2 12/25/17 08:02 36.8 79 18 134/70 (91) 96 12/25/17 08:00 Room Air 12/25/17 04:10 36.4 82 18 139/77 96 Room Air 12/25/17 03:12 84 18 135/78 93 Room Air 12/25/17 01:05 87 18 154/82 95 Room Air 12/24/17 23:53 79 18 154/82 95 12/24/17 23:16 89 12/24/17 23:14 94 Room Air 12/24/17 23:11 36.7 90 20 166/86 95 Room Air Physical Exam General Appearance: + pertinent finding (Pt was laying in bed demanding to see contents of colostomy bag) Respiratory/Chest: lungs clear, normal breath sounds, no respiratory distress, no accessory muscle use Cardiovascular: regular rate, rhythm Abdomen: normal bowel sounds, non tender (only in areas not covered with bandages), soft Extremities: no pedal edema Neurologic/Psychiatric: alert, + pertinent finding (oriented to person only) Skin: warm/dry Notes: : Redness in genital area Assessment and Plan 77yo male with PMHx of rectal cancer, HPL, DMII and anemia admitted for management of ARF with hyperkalemia and UTI due to an obstructive uropathy. Mental status change - sec to ? infection. follow. - supportive care Obstructive Uropathy due to dislodged byrne placed initially for urinary retention --suprapubic cath in place by urology in the ED ARF (baseline creatinine in 1 from november 2017) -IV fluids/Normal saline hydration -BUN and creatinine with significant elevation, however creatinine trending down from 6.1 to 5.4 today. -will continue to monitor Hyperkalemia -Received calcium gluconate 1000mg IV and Insulin Regular 10U in ED. -K+ is 5.4 today from 5.8 -currently not symptomatic cardiac-yoo, last EKG generally unchanged from previous. -Will continue to monitor K+ level UTI Culture results pending -Ceftriaxone Sodium 1gm q24h IV treatment in interim Rectal Ca Hx -Will be followed outpatient HPL -continue Crestor DM type II -hold metformin -Blood glucose levels controlled -Will continue to monitor Anemia -continue iron Diet: AHA Heart Healthy Diet Diabetes Type II Diet Renal Diet DVT Prophylaxis: -SCDs currently. -Can switch to heparin based on recs from urology and whether another procedure will be required. Resuscitation: Full resuscitation Resident Tracking Resident Involvement: Resident Care Provided Care Provided: Adult Hospital Medicine Reviewed: Pt Seen/Exam by Me History confused this am - seeing animals in the room. Constitutional: denies: fever Respiratory: negative: short of breath Cardiovascular: denies chest pain General Appearance: no apparent distress Respiratory: lungs clear, no respiratory distress Cardiovascular: regular rate, rhythm Neurologic/Psychiatric: alert, oriented x 3, other (visual hallucinations) Skin Characteristics: warm/dry Assessment/Plan Resident Physician Supervision Note: I independently interviewed and examined the patient and verified the villalobos history and physical, reviewed labs and image studies, discussed the case with the resident Dr. Little and agree with the findings and care plan.
--- NOTE | 2017-12-25 11:34 | Urology Progress Note ---
Progress Note Date of Service Dec 25, 2017. Subjective Pt evaluation today including: conversation w/ patient, conversation w/ family , physical exam, lab review Pain: no pain or penile or perineal bleeding or leaking S/p draining dark urine Objective Vital Signs Date Time Temp Pulse Resp B/P (MAP) Pulse Ox O2 Delivery O2 Flow Rate FiO2 12/25/17 08:02 36.8 79 18 134/70 (91) 96 12/25/17 08:00 Room Air 12/25/17 04:10 36.4 82 18 139/77 96 Room Air 12/25/17 03:12 84 18 135/78 93 Room Air 12/25/17 01:05 87 18 154/82 95 Room Air 12/24/17 23:53 79 18 154/82 95 12/24/17 23:16 89 12/24/17 23:14 94 Room Air 12/24/17 23:11 36.7 90 20 166/86 95 Room Air Laboratory Results Last 24 Hours Test 12/24/17 23:20 12/24/17 23:30 12/25/17 04:49 12/25/17 05:28 White Blood Count 15.39 K/uL 13.39 K/uL Red Blood Count 3.88 M/uL 3.68 M/uL Hemoglobin 10.5 g/dL 10.0 g/dL Hematocrit 32.8 % 31.1 % Mean Corpuscular Volume 84.5 fL 84.5 fL Mean Corpuscular Hemoglobin 27.1 pg 27.2 pg Mean Corpuscular Hemoglobin Concent 32.0 g/dl 32.2 g/dl Platelet Count 350 K/uL 357 K/uL Mean Platelet Volume 9.7 fL 10.3 fL Neutrophils (%) (Auto) 90.5 % Lymphocytes (%) (Auto) 3.5 % Monocytes (%) (Auto) 5.4 % Eosinophils (%) (Auto) 0.1 % Basophils (%) (Auto) 0.2 % Neutrophils # (Auto) 13.94 K/uL Lymphocytes # (Auto) 0.54 K/uL Monocytes # (Auto) 0.83 K/uL Eosinophils # (Auto) 0.01 K/uL Basophils # (Auto) 0.03 K/uL RDW Standard Deviation 50.5 fL 51.4 fL RDW Coefficient of Variation 16.3 % 16.6 % Immature Granulocyte % (Auto) 0.3 % Immature Granulocyte # (Auto) 0.04 K/uL Prothrombin Time 11.1 SECONDS Prothromb Time International Ratio 1.1 Activated Partial Thromboplast Time 28.0 SECONDS Partial Thromboplastin Ratio 1.1 Sodium Level 129 mmol/L 134 mmol/L Potassium Level 5.8 mmol/L 5.4 mmol/L Chloride Level 97 mmol/L 101 mmol/L Carbon Dioxide Level 16 mmol/L 19 mmol/L Anion Gap 16.0 mmol/L 14.0 mmol/L Blood Urea Nitrogen 54 mg/dl 53 mg/dl Creatinine 6.10 mg/dl 5.40 mg/dl Est Creatinine Clear Calc Drug Dose 10.1 ml/min 11.5 ml/min Estimated GFR () 9.4 10.9 Estimated GFR (Non- 8.1 9.4 BUN/Creatinine Ratio 8.9 9.8 Random Glucose 108 mg/dl 77 mg/dl Calcium Level 9.1 mg/dl 8.9 mg/dl Phosphorus Level 5.5 mg/dl 5.4 mg/dl Magnesium Level 2.6 mg/dl 2.4 mg/dl Total Bilirubin 0.2 mg/dl Direct Bilirubin < 0.1 mg/dl Aspartate Amino Transf (AST/SGOT) 8 U/L Alanine Aminotransferase (ALT/SGPT) 10 U/L Alkaline Phosphatase 92 U/L Troponin I < 0.015 ng/ml Total Protein 7.5 gm/dl Albumin 2.8 gm/dl Lipase 41 U/L Thyroid Stimulating Hormone (TSH) 0.620 uIu/ml Urine Color ORANGE Urine Appearance TURBID Urine pH 5.5 Urine Specific [place] 1.018 Urine Protein 4+ Urine Glucose (UA) NEG Urine Ketones NEG Urine Occult Blood 3+ Urine Nitrite NEG Urine Bilirubin NEG Urine Urobilinogen NEG Urine Leukocyte Esterase LARGE Urine WBC (Auto) >30 /hpf Urine RBC (Auto) 10-30 /hpf Urine Hyaline Casts (Auto) 1-5 /lpf Urine Epithelial Cells (Auto) 20-30 /lpf Urine Bacteria (Auto) NEG Urine Crystals Urine Pathogenic Casts /lpf Urine Yeast (Auto) BUD W/ HYPHAE Test 12/25/17 07:33 Bedside Glucose 92 mg/dl Assessment and Plan Will need to discuss whether to replace byrne with a cystoscope with Dr. Abreu of [place] and Dr. Nunu who place one before after he stabilizes . Not clear fistula will heal better than with a diversion with an s/p tube
[2017-12-25 13:07] LABS: CALCIUM 8.4 mg/dl (8.5-10.1); CREATININE 4.64 mg/dl (0.60-1.40); POTASSIUM 5.3 mmol/L (3.5-5.1)
[2017-12-25] MEDS: ROSUVASTATIN CALCIUM 10 MG TAB PO SCH (21:19)
[2017-12-25] MEDS: ACETAMINOPHEN 325 MG TAB PO PRN (21:31)
[2017-12-25] MEDS: CEFTRIAXONE SOD INJ 1 GM in DEXTROSE 5% ADD-VANTAGE 50ML 50 ML IV SCH (23:54)
[2017-12-26] VITALS (7 sets, daily range): BP systolic 106–134; BP diastolic 57–82; PULSE 53–76; TEMP 36.5–36.6; O2SAT 94–97; Ht 175.3 cm; Wt 77.8 kg
[2017-12-26 06:19] LABS: BASO % 0.5 %; BASO ABS # 0.04 K/uL (0-0.2); EOS ABS # 0.15 K/uL (0-0.5); HEMATOCRIT 27.2 % (42-52); HEMOGLOBIN 8.7 g/dL (14.0-18.0); IG# 0.02 K/uL (0.00-0.02); LYMPH ABS # 0.52 K/uL (1.2-3.4); MEAN CELL VOLUME 84.7 fL (80-100); MEAN CORPUSCULAR HEMOGLOBIN 27.1 pg (25-34); MEAN PLATELET VOLUME 9.2 fL (7.4-10.4); MONO % 7.7 %; MONO ABS # 0.57 K/uL (0.11-0.59); NEUT % 82.5 %; NEUT ABS # 6.11 K/uL (1.4-6.5); PLATELET COUNT 270 K/uL (130-400); RED CELL DISTRIBUTION WIDTH CV 16.2 % (11.5-14.5); RED CELL DISTRIBUTION WIDTH SD 50.2 fL (36.4-46.3); WHITE BLOOD COUNT 7.41 K/uL (4.8-10.8)
[2017-12-26 07:07] LABS: ALBUMIN 2.2 gm/dl (3.4-5.0); CALCIUM 8.1 mg/dl (8.5-10.1); CREATININE 3.38 mg/dl (0.60-1.40); POTASSIUM 5.2 mmol/L (3.5-5.1)
[2017-12-26] MEDS: CHOLECALCIFEROL 1000 INTER.UNIT TAB PO SCH (07:35)
[2017-12-26] MEDS: OXYBUTYNIN CHLORIDE 5 MG TABCR PO SCH (07:35)
[2017-12-26] MEDS: ASPIRIN 81 MG ECTAB PO SCH (07:36)
[2017-12-26] MEDS: SENNA 8.6 MG TAB PO SCH ×2 (07:36→20:25)
[2017-12-26] MEDS: FERROUS SULFATE 325 MG TAB PO SCH (07:36)
[2017-12-26] MEDS: POLYETHYLENE (MIRALAX) 17 GM PACK PO SCH ×2 (07:36→20:24)
[2017-12-26] MEDS: CYANOCOBALAMIN 500 MCG TAB (VIT B-12) PO SCH (07:36)
[2017-12-26] MEDS: ONDANSETRON INJ 2 MG/ML 2 ML VIAL IV PRN (08:52)
[2017-12-26] MEDS: SODIUM CHLORIDE 0.9% 1000ML 1,000 ML IV SCH ×3 (08:53→21:07)
--- NOTE | 2017-12-26 10:01 | Clinical Documentation Query ---
JOSE ELIAS Bliss : CLINICAL DOCUMENTATION QUERIES QUERY 1 OF 2 Patient is a 77 year old male admitted s/p recent perineal resection with colostomy creation and more recent Marks placement for perineal urofistula. Presented with obstructive CLAYTON in this setting. Marks balloon noted per CT to be in the area of the prostate. Patient treated with urgent suprapubic catheterization. As appropriate, consider documentation as suggested below as this impacts accurate DRG assignment. Thank you In your clinical opinion is this patient being managed for: ( ) CLAYTON due to malplacement of urethral catheter, a complication of care (x ) Not Agree - see notes, definitely obstructive uropathy, but not clear if catheter was malplaced or migrated ( ) Other explanation of clinical findings (No explanation is considered a No Response) ( ) Unable to determine ( ) Need to Discuss (Phone CDS or qliq) (No discussion is considered a No Response) The medical record reflects the following clinical findings, treatment, and risk factors. Clinical Indicators: As above QUERY 2 OF 2 Patient noted to have an altered mental status in the setting of CLAYTON and UTI. As appropriate, consider these as potential etiologies of this symptom as suggested below. Thank you. In your clinical opinion is this patient being managed for: (x ) Encephalopathy (likely/possibly) secondary to CLAYTON and/or infection ( ) Not Agree ( ) Other explanation of clinical findings (No explanation is considered a No Response) ( ) Unable to determine ( ) Need to Discuss (Phone CDS or qliq) (No discussion is considered a No Response) The medical record reflects the following clinical findings, treatment, and risk factors. Clinical Indicators: As above Treatment: IVF, suprapubic catheterization, urology consultation, antibiotics Risk Factors: CLAYTON, infection Please clarify and document your clinical opinion in the progress notes and discharge summary. Terms such as "probable", "suspected", "likely", "questionable", "possible", or "still to be ruled out" are acceptable. IF IN AGREEMENT, YOU MUST DOCUMENT ABOVE DIAGNOSTIC STATEMENT IN DAILY PROGRESS NOTES AND DISCHARGE SUMMARY. This document is not part of the patient's record. Thank You, Gunnar Friend, AIMEE [phone]
--- NOTE | 2017-12-26 10:54 | Urology Progress Note ---
Progress Note Date of Service Dec 26, 2017. Subjective Pt evaluation today including: conversation w/ patient, physical exam, chart review, lab review Pain: denies PO Intake: tolerating 77 YO male, acute renal failure, bladder outlet obstruction, urinary retention, urethrocutaneous fistula, UTI. SP tube remains intact, patent, draining clear yellow urine. Remains on Ancef. Nursing reports some intermittent hallucination/confusion overnight. Patient reports feeling better this morning. Denies pain. Intermittent nausea. Constitutional: No fever, No chills Eyes: No worsening of vision Respiratory: No shortness of breath Cardiovascular: No chest pain Abdomen: + nausea, No pain Male : + see HPI Neurologic: No numbness/tingling Psychiatric: + see HPI Objective Vital Signs Date Time Temp Pulse Resp B/P (MAP) Pulse Ox O2 Delivery O2 Flow Rate FiO2 12/26/17 07:04 36.5 69 20 128/62 (84) 95 Room Air 12/26/17 03:30 36.5 67 18 106/82 (90) 94 Room Air 12/25/17 23:52 36.5 73 15 125/51 (75) 94 Room Air 12/25/17 20:00 Room Air 12/25/17 19:54 36.4 65 18 126/59 (81) 96 Room Air 12/25/17 15:34 36.4 12/25/17 15:31 75 18 122/65 (84) 92 Room Air 12/25/17 11:54 36.6 81 18 138/67 (90) 93 Physical Exam General Appearance: no apparent distress Eyes: normal inspection ENT: hearing grossly normal Neck: supple, no JVD Respiratory/Chest: no respiratory distress, no accessory muscle use Cardiovascular: no JVD Abdomen: non tender, soft, + pertinent finding (SP tube intact, draining clear yellow urine) Extremities: normal inspection Neurologic/Psychiatric: alert, oriented x 3, + disoriented (confusion/ hallucination reported overnight. Patient oriented and cooperative with exam this AM.) Skin: normal color Laboratory Results Last 24 Hours Test 12/25/17 11:31 12/25/17 12:04 12/25/17 16:35 12/25/17 21:04 Bedside Glucose 97 mg/dl 102 mg/dl 98 mg/dl Sodium Level 132 mmol/L Potassium Level 5.3 mmol/L Chloride Level 102 mmol/L Carbon Dioxide Level 21 mmol/L Anion Gap 9.0 mmol/L Blood Urea Nitrogen 49 mg/dl Creatinine 4.64 mg/dl Est Creatinine Clear Calc Drug Dose 13.3 ml/min Estimated GFR () 13.1 Estimated GFR (Non- 11.3 BUN/Creatinine Ratio 10.6 Random Glucose 90 mg/dl Calcium Level 8.4 mg/dl Test 12/26/17 05:51 12/26/17 07:33 White Blood Count 7.41 K/uL Red Blood Count 3.21 M/uL Hemoglobin 8.7 g/dL Hematocrit 27.2 % Mean Corpuscular Volume 84.7 fL Mean Corpuscular Hemoglobin 27.1 pg Mean Corpuscular Hemoglobin Concent 32.0 g/dl Platelet Count 270 K/uL Mean Platelet Volume 9.2 fL Neutrophils (%) (Auto) 82.5 % Lymphocytes (%) (Auto) 7.0 % Monocytes (%) (Auto) 7.7 % Eosinophils (%) (Auto) 2.0 % Basophils (%) (Auto) 0.5 % Neutrophils # (Auto) 6.11 K/uL Lymphocytes # (Auto) 0.52 K/uL Monocytes # (Auto) 0.57 K/uL Eosinophils # (Auto) 0.15 K/uL Basophils # (Auto) 0.04 K/uL RDW Standard Deviation 50.2 fL RDW Coefficient of Variation 16.2 % Immature Granulocyte % (Auto) 0.3 % Immature Granulocyte # (Auto) 0.02 K/uL Red Blood Cell Morphology Unremarkable Sodium Level 135 mmol/L Potassium Level 5.2 mmol/L Chloride Level 105 mmol/L Carbon Dioxide Level 23 mmol/L Anion Gap 7.0 mmol/L Blood Urea Nitrogen 43 mg/dl Creatinine 3.38 mg/dl Est Creatinine Clear Calc Drug Dose 18.3 ml/min Estimated GFR () 19.2 Estimated GFR (Non- 16.6 BUN/Creatinine Ratio 12.8 Random Glucose 70 mg/dl Calcium Level 8.1 mg/dl Total Bilirubin 0.3 mg/dl Aspartate Amino Transf (AST/SGOT) 11 U/L Alanine Aminotransferase (ALT/SGPT) 9 U/L Alkaline Phosphatase 77 U/L Total Protein 6.0 gm/dl Albumin 2.2 gm/dl Globulin 3.8 gm/dl Albumin/Globulin Ratio 0.6 Bedside Glucose 79 mg/dl Assessment and Plan 77 YO male, ARF, URRUTIA, urinary retention, urethrocutaneous fistula, UTI ARF, URRUTIA, urinary retention, urethrocutaneous fistula SP tube patent, draining clear yellow urine. No issues or skin irritation identified on exam. Creatinine improving, 3.83 this AM from 4.64 yesterday. SP tube likely to remain in place for several days, weeks. Will discuss follow up with patient's established care team including Dr. Eddy and Petra. UTI UC&S prelim positive. Patient remains on IV Ancef. Recommend transition to PO therapy pending sensitivities for 10d total therapy. Will continue to follow along with primary service.
[2017-12-26] MEDS ORDERED: CEFD1CAP14 PO (15:23)
--- NOTE | 2017-12-26 16:27 | Discharge Instructions ---
Discharge Instructions Date of Service Dec 26, 2017. Admission Reason for Admission: Arf, Obstructive Uropathy Discharge Discharge Diagnosis / Problem: Acute Renal Injury secondary to Obstruction. Discharge Goals Goal(s): Decrease discomfort, Improve function Activity Recommendations Activity Limitations: resume your previous activity . Instructions / Follow-Up Instructions / Follow-Up You are being discharged from your hospital stay that was due to acute renal injury due to obstruction. During your admission, a suprapubic catheter was placed, relieving your obstruction. This is going to remain in place on discharge and information on it is provided. You are also being discharged on an antibiotic medication called cefdinir due to an infection of your bladder. Information on cefdinir is provided. 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 Current Hospital Diet Patient's current hospital diet: AHA Diet (Heart Healthy), Diabetes Type 2 Diet Discharge Diet Recommended Diet: Diabetes Type 2 Diet Procedures Procedures Performed: Suprapubic Catheterization Pending Studies Studies pending at discharge: no Laboratory Results Hemoglobin A1c Test 11/24/17 10:18 Range/Units Estimated Average Glucose 192 mg/dl Hemoglobin A1c 8.3 H 4.5-5.6 % Medical Emergencies . Who to Call and When: Medical Emergencies: If at any time you feel your situation is an emergency, please call 911 immediately. . Non-Emergent Contact Non-Emergency issues call your: Primary Care Provider . Past History Medical & Surgical History: (1) ARF (acute renal failure) (2) UTI (urinary tract infection) (3) Obstructive uropathy (4) Rectal cancer . "Provider Documentation" section prepared by Kenny Piper. .
[2017-12-26] MEDS: ROSUVASTATIN CALCIUM 10 MG TAB PO SCH (20:24)
--- NOTE | 2017-12-26 20:39 | Family Medicine Progress Note ---
Progress Note Date of Service Dec 26, 2017. Subjective Pt evaluation today including: conversation w/ patient, conversation w/ family , physical exam, chart review, lab review Patient resting comfortably today, no complaints to me. However, he is experiencing hallucinations and having strange thoughts. He is aware of these hallucinations but they persist. He is oriented to person, place, time and situation, but speaks nonsensically at times. He is CAM-ICU negative. Later Tuesday night, I spoke at some length with the patients son who purports to be an internal medicine physician. The son was present as well as two family friends, the technical translator and the patient's daughter in law. The son is unhappy that we were considering discharging him soon and is adamant that [facility] is an inappropriate place for his father to be. He hopes to speak to the team on rounds tomorrow morning. Constitutional: No fever, No chills Respiratory: No cough, No sputum Cardiovascular: No chest pain, No orthopnea Abdomen: No pain Male : + problem reported (suprapubic catheterization) Neurologic: + memory loss Psychiatric: + problem reported (Hallucinations) Medications Current Inpatient Medications Medications (Trade) Dose Ordered Sig/Omaira Route Start Time Stop Time Status Last Admin Dose Admin Acetaminophen (Tylenol Tab) 650 mg Q4H PRN PO 12/25/17 03:00 01/24/18 02:59 12/25/17 21:31 650 MG Al Hydrox/Mg Hydrox/Simethicone (Maalox Max Susp) 15 ml Q4H PRN PO 12/25/17 03:00 01/24/18 02:59 Magnesium Hydroxide (Milk Of Magnesia Susp) 30 ml Q12H PRN PO 12/25/17 03:00 01/24/18 02:59 Zolpidem Tartrate (Ambien Tab) 5 mg HSZ PRN PO 12/25/17 03:00 01/24/18 02:59 Ondansetron HCl (Zofran Inj) 4 mg Q6H PRN IV 12/25/17 03:00 01/24/18 02:59 12/26/17 08:52 4 MG Polyethylene (Miralax Powder Packet) 17 gm DAILY PRN PO 12/25/17 03:00 01/24/18 02:59 Aspirin (Ecotrin Tab) 81 mg DAILY PO 12/25/17 09:00 01/24/18 08:59 12/26/17 07:36 81 MG Cholecalciferol (Vitamin D Tab) 1,000 inter.unit QAM PO 12/25/17 09:00 01/24/18 08:59 12/26/17 07:35 1,000 INTER.UNIT Cyanocobalamin (Vitamin B-12 Tab) 1,000 mcg QAM PO 12/25/17 09:00 01/24/18 08:59 12/26/17 07:36 1,000 MCG Meclizine HCl (Antivert Tab) 25 mg TID PRN PO 12/25/17 03:00 01/24/18 02:59 Rosuvastatin Calcium (Crestor Tab) 10 mg HS PO 12/25/17 21:00 01/24/18 20:59 12/25/17 21:19 10 MG Senna (Senokot Tab) 8.6 mg BID PO 12/25/17 09:00 01/24/18 08:59 12/26/17 07:36 8.6 MG Simethicone (Mylicon Chew Tab) 80 mg Q6H PRN PO 12/25/17 03:00 01/24/18 02:59 Tramadol HCl (Ultram Tab) 50 mg Q4H PRN PO 12/25/17 03:00 01/24/18 02:59 Ferrous Sulfate (Feosol Tab) 325 mg QAM PO 12/25/17 09:00 01/24/18 08:59 12/26/17 07:36 325 MG Oxybutynin Chloride (Ditropan-Xl Tab) 10 mg QAM PO 12/25/17 09:00 01/24/18 08:59 12/26/17 07:35 10 MG Polyethylene (Miralax Powder Packet) 17 gm BID PO 12/25/17 09:00 01/24/18 08:59 12/26/17 07:36 17 GM Ceftriaxone Sodium 1 gm/ Dextrose 50 ml @ 100 mls/hr Q24H IV 12/26/17 00:00 01/05/18 00:00 12/25/17 23:54 100 MLS/HR Sodium Chloride 1,000 ml @ 150 mls/hr Q6H40M IV 12/26/17 07:45 01/25/18 07:44 12/26/17 15:27 150 MLS/HR Objective Vital Signs Date Time Temp Pulse Resp B/P (MAP) Pulse Ox O2 Delivery O2 Flow Rate FiO2 12/26/17 19:41 36.6 65 18 134/68 (90) 97 Room Air 12/26/17 16:15 95 Room Air 12/26/17 15:37 36.5 76 19 125/63 (83) Room Air 96.0 12/26/17 11:45 36.5 71 18 133/72 (92) 95 Room Air 12/26/17 08:00 Room Air 12/26/17 07:04 36.5 69 20 128/62 (84) 95 Room Air 12/26/17 03:30 36.5 67 18 106/82 (90) 94 Room Air 12/25/17 23:52 36.5 73 15 125/51 (75) 94 Room Air Physical Exam General Appearance: WD/WN, no apparent distress Respiratory/Chest: chest non-tender, lungs clear, normal breath sounds, no respiratory distress, no accessory muscle use Cardiovascular: regular rate, rhythm, no edema, no gallop, no murmur Abdomen: non tender, soft, + pertinent finding (Colostomy bag, patent. Suprapubic catheter, draining well) Neurologic/Psychiatric: no motor/sensory deficits, alert, oriented x 3, + disoriented, + pertinent finding (Hallucinations, saw things in the room that weren't there) Laboratory Results 12/26/17 05:51 Red Blood Count 3.21, Mean Corpuscular Volume 84.7, Mean Corpuscular Hemoglobin 27.1, Mean Corpuscular Hemoglobin Concent 32.0, Mean Platelet Volume 9.2, Neutrophils (%) (Auto) 82.5, Lymphocytes (%) (Auto) 7.0, Monocytes (%) (Auto) 7.7, Eosinophils (%) (Auto) 2.0, Basophils (%) (Auto) 0.5, Neutrophils # (Auto) 6.11, Lymphocytes # (Auto) 0.52, Monocytes # (Auto) 0.57, Eosinophils # (Auto) 0.15, Basophils # (Auto) 0.04 12/26/17 05:51 Test 12/26/17 05:51 12/26/17 16:44 White Blood Count 7.41 K/uL (4.8-10.8) Red Blood Count 3.21 M/uL (4.7-6.1) Hemoglobin 8.7 g/dL (14.0-18.0) Hematocrit 27.2 % (42-52) Mean Corpuscular Volume 84.7 fL (80-100) Mean Corpuscular Hemoglobin 27.1 pg (25-34) Mean Corpuscular Hemoglobin Concent 32.0 g/dl (32-36) Platelet Count 270 K/uL (130-400) Mean Platelet Volume 9.2 fL (7.4-10.4) Neutrophils (%) (Auto) 82.5 % Lymphocytes (%) (Auto) 7.0 % Monocytes (%) (Auto) 7.7 % Eosinophils (%) (Auto) 2.0 % Basophils (%) (Auto) 0.5 % Neutrophils # (Auto) 6.11 K/uL (1.4-6.5) Lymphocytes # (Auto) 0.52 K/uL (1.2-3.4) Monocytes # (Auto) 0.57 K/uL (0.11-0.59) Eosinophils # (Auto) 0.15 K/uL (0-0.5) Basophils # (Auto) 0.04 K/uL (0-0.2) RDW Standard Deviation 50.2 fL (36.4-46.3) RDW Coefficient of Variation 16.2 % (11.5-14.5) Immature Granulocyte % (Auto) 0.3 % Immature Granulocyte # (Auto) 0.02 K/uL (0.00-0.02) Red Blood Cell Morphology Unremarkable Anion Gap 7.0 mmol/L (3-11) Est Creatinine Clear Calc Drug Dose 18.3 ml/min Estimated GFR () 19.2 Estimated GFR (Non- 16.6 BUN/Creatinine Ratio 12.8 (10-20) Calcium Level 8.1 mg/dl (8.5-10.1) Total Bilirubin 0.3 mg/dl (0.2-1) Aspartate Amino Transf (AST/SGOT) 11 U/L (15-37) Alanine Aminotransferase (ALT/SGPT) 9 U/L (12-78) Alkaline Phosphatase 77 U/L (45-117) Total Protein 6.0 gm/dl (6.4-8.2) Albumin 2.2 gm/dl (3.4-5.0) Globulin 3.8 gm/dl (2.5-4.0) Albumin/Globulin Ratio 0.6 (0.9-2) Bedside Glucose 111 mg/dl (70-99) Assessment and Plan 77yo male with PMHx of rectal cancer, HPL, DMII and anemia admitted for management of obstructive acute renal failure with hyperkalemia and UTI due to an obstructive uropathy. Mental Status Changes - Most likely delirium -May not resolve until after d/c Obstructive Uropathy due to dislodged byrne placed initially for urinary retention --suprapubic cath in place by urology in the ED ARF (baseline creatinine in 1 from november 2017) -Renal function continues to improve. Creatinine down to 3.3 from 6.1 at admission. -Currently receiving NS at 150ml/hr -will continue to monitor Hyperkalemia -K+ is 5.2 today from 5.8 -currently not symptomatic cardiac-yoo, last EKG generally unchanged from previous. -Will continue to monitor K+ level predict it to drop below 5 as renal function improves UTI Culture positive for staph aureus and nancy -Ceftriaxone Sodium 1gm q24h IV treatment in interim Rectal Ca -Will be followed outpatient HPL -continue Crestor DM type II -hold metformin -Blood glucose levels controlled -Will continue to monitor Anemia -continue iron Diet: AHA Heart Healthy Diet Diabetes Type II Diet Renal Diet DVT Prophylaxis: -SCDs currently. Resuscitation: Full resuscitation Resident Physician Supervision Note: I interviewed and examined the patient. Discussed with Dr. Piper and agree with findings and plan as documented in the note. Any exceptions or clarifications are listed here: None Documented By: Sal Morrissey feeling better overall still having some hallucinations - but able to realize quickly they aren't real. waxing and waning vitals noted nad breathing unlabored no pallor or icterus, oriented, conversive and appropriate ARF - obstructive uropathy - improving post suprapubic cath. continue drainage fistula - no acute issues - outpt management possible UTI - (+) culture may all be from devices and colonization, but with circumstances, obligated to treat for bacterial. follow yeast - not clearly necessary to treat since he is improving without treatment for this delirium - supportive care, reassurance. explained delirium to pt as well Resident Tracking Resident Involvement: Resident Care Provided Care Provided: [facility]
[2017-12-26] MEDS: ACETAMINOPHEN 325 MG TAB PO PRN (21:10)
[2017-12-26] MEDS: CEFTRIAXONE SOD INJ 1 GM in DEXTROSE 5% ADD-VANTAGE 50ML 50 ML IV SCH (23:20)
[2017-12-27] VITALS (8 sets, daily range): BP systolic 124–165; BP diastolic 58–77; PULSE 51–72; TEMP 36.4–36.8; O2SAT 95–98
[2017-12-27] MEDS: SODIUM CHLORIDE 0.9% 1000ML 1,000 ML IV SCH ×4 (00:45→17:32)
[2017-12-27 06:21] LABS: HEMATOCRIT 26.9 % (42-52); HEMOGLOBIN 8.5 g/dL (14.0-18.0); MEAN CELL VOLUME 85.4 fL (80-100); MEAN CORPUSCULAR HGB CONC 31.6 g/dl (32-36); PLATELET COUNT 264 K/uL (130-400); RED CELL DISTRIBUTION WIDTH CV 16.4 % (11.5-14.5); RED CELL DISTRIBUTION WIDTH SD 51.9 fL (36.4-46.3); WHITE BLOOD COUNT 5.33 K/uL (4.8-10.8)
[2017-12-27 07:08] LABS: ALBUMIN 2.2 gm/dl (3.4-5.0); CREATININE 2.03 mg/dl (0.60-1.40); POTASSIUM 4.5 mmol/L (3.5-5.1); TOTAL PROTEIN 5.8 gm/dl (6.4-8.2)
[2017-12-27] MEDS: SENNA 8.6 MG TAB PO SCH ×2 (09:01→20:34)
[2017-12-27] MEDS: FERROUS SULFATE 325 MG TAB PO SCH (09:01)
[2017-12-27] MEDS: ASPIRIN 81 MG ECTAB PO SCH (09:01)
[2017-12-27] MEDS: CYANOCOBALAMIN 500 MCG TAB (VIT B-12) PO SCH (09:01)
[2017-12-27] MEDS: POLYETHYLENE (MIRALAX) 17 GM PACK PO SCH ×2 (09:02→20:35)
[2017-12-27] MEDS: CHOLECALCIFEROL 1000 INTER.UNIT TAB PO SCH (09:02)
[2017-12-27] MEDS: OXYBUTYNIN CHLORIDE 5 MG TABCR PO SCH (09:02)
--- NOTE | 2017-12-27 12:48 | Family Medicine Progress Note ---
Progress Note Date of Service Dec 27, 2017. Subjective Pt evaluation today including: conversation w/ patient, conversation w/ family , physical exam, chart review, lab review PO Intake: Poor, but improves with active motivation. Patient resting comfortably, still delrious with confusion and some hallucinations. But is aware that these hallucinations are not real. He is more alert today and is capable of having a discussion albeit with some inappropriate comments. Family is encouraged, they spoke with case management this morning about placement options. Patient must stay inpatient one more midnight to qualify for SNF placement. Patient endorses no new complaints. Additional Comments: Constitutional: No fever, No chills Respiratory: No cough, No sputum Cardiovascular: No chest pain, No orthopnea Abdomen: No pain Male : + problem reported (suprapubic catheterization) Neurologic: + memory loss Psychiatric: + problem reported (Hallucinations) Medications Current Inpatient Medications Medications (Trade) Dose Ordered Sig/Omaira Route Start Time Stop Time Status Last Admin Dose Admin Acetaminophen (Tylenol Tab) 650 mg Q4H PRN PO 12/25/17 03:00 01/24/18 02:59 12/26/17 21:10 650 MG Al Hydrox/Mg Hydrox/Simethicone (Maalox Max Susp) 15 ml Q4H PRN PO 12/25/17 03:00 01/24/18 02:59 Magnesium Hydroxide (Milk Of Magnesia Susp) 30 ml Q12H PRN PO 12/25/17 03:00 01/24/18 02:59 Zolpidem Tartrate (Ambien Tab) 5 mg HSZ PRN PO 12/25/17 03:00 01/24/18 02:59 Ondansetron HCl (Zofran Inj) 4 mg Q6H PRN IV 12/25/17 03:00 01/24/18 02:59 12/26/17 08:52 4 MG Polyethylene (Miralax Powder Packet) 17 gm DAILY PRN PO 12/25/17 03:00 01/24/18 02:59 Aspirin (Ecotrin Tab) 81 mg DAILY PO 12/25/17 09:00 01/24/18 08:59 12/27/17 09:01 81 MG Cholecalciferol (Vitamin D Tab) 1,000 inter.unit QAM PO 12/25/17 09:00 01/24/18 08:59 12/27/17 09:02 1,000 INTER.UNIT Cyanocobalamin (Vitamin B-12 Tab) 1,000 mcg QAM PO 12/25/17 09:00 01/24/18 08:59 12/27/17 09:01 1,000 MCG Meclizine HCl (Antivert Tab) 25 mg TID PRN PO 12/25/17 03:00 01/24/18 02:59 Rosuvastatin Calcium (Crestor Tab) 10 mg HS PO 12/25/17 21:00 01/24/18 20:59 12/26/17 20:24 10 MG Senna (Senokot Tab) 8.6 mg BID PO 12/25/17 09:00 01/24/18 08:59 12/27/17 09:01 8.6 MG Simethicone (Mylicon Chew Tab) 80 mg Q6H PRN PO 12/25/17 03:00 01/24/18 02:59 Tramadol HCl (Ultram Tab) 50 mg Q4H PRN PO 12/25/17 03:00 01/24/18 02:59 Ferrous Sulfate (Feosol Tab) 325 mg QAM PO 12/25/17 09:00 01/24/18 08:59 12/27/17 09:01 325 MG Oxybutynin Chloride (Ditropan-Xl Tab) 10 mg QAM PO 12/25/17 09:00 01/24/18 08:59 12/27/17 09:02 10 MG Polyethylene (Miralax Powder Packet) 17 gm BID PO 12/25/17 09:00 01/24/18 08:59 12/27/17 09:02 17 GM Ceftriaxone Sodium 1 gm/ Dextrose 50 ml @ 100 mls/hr Q24H IV 12/26/17 00:00 01/05/18 00:00 12/26/17 23:20 100 MLS/HR Sodium Chloride 1,000 ml @ 150 mls/hr Q6H40M IV 12/26/17 07:45 01/25/18 07:44 12/27/17 04:44 150 MLS/HR Objective Physical Exam Notes: General Appearance: WD/WN, no apparent distress Respiratory/Chest: chest non-tender, lungs clear, normal breath sounds, no respiratory distress, no accessory muscle use Cardiovascular: regular rate, rhythm, no edema, no gallop, no murmur Abdomen: non tender, soft, + pertinent finding (Colostomy bag, patent. Suprapubic catheter, draining well) Neurologic/Psychiatric: no motor/sensory deficits, alert, oriented x 3, + disoriented, + pertinent finding (Hallucinations, saw things in the room that weren't there) Assessment and Plan 77yo male with PMHx of rectal cancer, HPL, DMII and anemia admitted for management of obstructive acute renal failure with hyperkalemia and UTI due to an obstructive uropathy. Mental Status Changes - Most likely delirium -May not resolve until after d/c Obstructive Uropathy due to dislodged byrne placed initially for urinary retention --suprapubic cath in place -Draining well at this time ARF (baseline creatinine is 1 from november 2017) -Renal function continues to improve. Creatinine down to 2.03 from 6.1 at admission. -Potassium returned to normal range -Currently receiving NS at 150ml/hr -will continue to monitor Hyperkalemia -Resolved -K+ is 4.5 today from 5.8 UTI Culture positive for staph aureus and nancy -Ceftriaxone Sodium 1gm q24h IV treatment in interim -Plan to discharge on Cefdinir Rectal Ca -Will be followed outpatient HPL -continue Crestor DM type II -hold metformin -Blood glucose levels controlled -Will continue to monitor Anemia -continue iron Diet: AHA Heart Healthy Diet Diabetes Type II Diet Renal Diet DVT Prophylaxis: -SCDs currently. Dispo: Accepted to [facility], will be discharged tomorrow Resuscitation: Full resuscitation Resident Physician Supervision Note: I interviewed and examined the patient. Discussed with Dr. Piper and agree with findings and plan as documented in the note. Any exceptions or clarifications are listed here: None Documented By: Sal Morrissey feeling better overall still having some hallucinations - but less - family notes he's not baseline but is getting better vitals noted nad breathing unlabored no pallor or icterus, oriented, conversive and appropriate ARF - obstructive uropathy - improving post suprapubic cath. ARF related to byrne but now improved. continue drainage fistula - no acute issues - outpt management possible UTI - (+) culture may all be from devices and colonization, but with circumstances, obligated to treat for bacterial. follow yeast - not clearly necessary to treat since he is improving without treatment for this. discussed with family on this. encephalopathy secondary to ARF and/or infection - stable. reassurance/ supportive care/time stable for med surg, hopefully rehab soon Discharge planning: rehab hospital ([facility]) Resident Tracking Resident Involvement: Resident Care Provided Care Provided: Adult Hospital Medicine
--- NOTE | 2017-12-27 15:43 | Progress Note ---
Subjective Date of Service: Dec 27, 2017. Subjective Pt evaluation today including: conversation w/ patient, physical exam, chart review, lab review Pain: denies 77YO male, ARF, URRUTIA, urinary retention, urethrocutaneous fistula, UTI SP tube remains in place, draining yellow urine, patient denies any pain or issues with tube. Patient remains on IV antibiotics for UTI. Patient remains pleasant, cooperative with exam, but disoriented. Difficult to obtain accurate ROS. Problem List Medical Problems: (1) Acute head injury Status: Acute (2) Acute renal failure Status: Acute (3) Anemia Status: Acute (4) C1 cervical fracture Status: Acute (5) Complication of catheter Status: Acute (6) Dizziness Status: Acute (7) Encounter for Marks catheter replacement Status: Acute (8) Hyperkalemia Status: Acute (9) Low back pain Status: Acute (10) Metabolic acidosis Status: Acute (11) Nasal fracture Status: Acute (12) Syncope Status: Acute (13) Urinary retention Status: Acute (14) Urinary retention Status: Acute (15) Urinary tract infection Status: Acute (16) UTI (urinary tract infection) Status: Acute Review of Systems Constitutional: No fever, No chills Respiratory: No shortness of breath Cardiac: No chest pain Abdomen: No pain, No nausea, No vomiting Male : + see HPI Neurologic: + see HPI Psychiatric: + see HPI Objective Vital Signs Date Time Temp Pulse Resp B/P (MAP) Pulse Ox O2 Delivery O2 Flow Rate FiO2 12/27/17 12:15 36.5 63 18 131/61 (84) 98 Room Air 12/27/17 08:00 Room Air 12/27/17 07:44 36.8 51 17 137/77 (97) 98 Room Air 12/27/17 03:38 36.7 58 16 124/58 (80) 96 Room Air 12/27/17 00:00 95 Room Air 12/26/17 23:47 36.5 53 18 123/57 (79) 97 Room Air 12/26/17 19:41 36.6 65 18 134/68 (90) 97 Room Air 12/26/17 16:15 95 Room Air Physical Exam General Appearance: no apparent distress Eyes: normal inspection ENT: hearing grossly normal Neck: no JVD Respiratory/Chest: no respiratory distress, no accessory muscle use Cardiovascular: no JVD Abdomen: non tender, soft Extremities: normal inspection Neurologic/Psychiatric: alert, + disoriented Skin: normal color Laboratory Results Last 24 Hours Test 12/26/17 16:44 12/26/17 20:44 12/27/17 06:01 12/27/17 07:15 Bedside Glucose 111 mg/dl 137 mg/dl 88 mg/dl White Blood Count 5.33 K/uL Red Blood Count 3.15 M/uL Hemoglobin 8.5 g/dL Hematocrit 26.9 % Mean Corpuscular Volume 85.4 fL Mean Corpuscular Hemoglobin 27.0 pg Mean Corpuscular Hemoglobin Concent 31.6 g/dl RDW Standard Deviation 51.9 fL RDW Coefficient of Variation 16.4 % Platelet Count 264 K/uL Mean Platelet Volume 9.0 fL Sodium Level 139 mmol/L Potassium Level 4.5 mmol/L Chloride Level 108 mmol/L Carbon Dioxide Level 22 mmol/L Anion Gap 9.0 mmol/L Blood Urea Nitrogen 29 mg/dl Creatinine 2.03 mg/dl Est Creatinine Clear Calc Drug Dose 30.5 ml/min Estimated GFR () 35.6 Estimated GFR (Non- 30.7 BUN/Creatinine Ratio 14.4 Random Glucose 75 mg/dl Calcium Level 8.0 mg/dl Total Bilirubin 0.1 mg/dl Aspartate Amino Transf (AST/SGOT) 14 U/L Alanine Aminotransferase (ALT/SGPT) 10 U/L Alkaline Phosphatase 67 U/L Total Protein 5.8 gm/dl Albumin 2.2 gm/dl Globulin 3.6 gm/dl Albumin/Globulin Ratio 0.6 Test 12/27/17 11:09 Bedside Glucose 125 mg/dl Assessment and Plan 77 YO male, ARF, URRUTIA, urinary retention, urethrocutaneous fistula, UTI ARF, URRUTIA, urinary retention, urethrocutaneous fistula, UTI SP tube patent, draining clear yellow urine. No issues or skin irritation identified on exam. Creatinine improving. SP tube likely to remain in place for several days, weeks. Dr. Holt has placed a call to [place] and we are awaiting an update regarding SP tube. Continue antibiotics for UTI.
[2017-12-27] MEDS: ROSUVASTATIN CALCIUM 10 MG TAB PO SCH (20:34)
[2017-12-27] MEDS: CEFTRIAXONE SOD INJ 1 GM in DEXTROSE 5% ADD-VANTAGE 50ML 50 ML IV SCH (23:22)
[2017-12-28 04:18] VITALS: BP 164/70; PULSE 96; TEMP 36.7; O2SAT 98
[2017-12-28 06:02] LABS: HEMATOCRIT 26.9 % (42-52); HEMOGLOBIN 8.5 g/dL (14.0-18.0); MEAN CELL VOLUME 85.4 fL (80-100); MEAN CORPUSCULAR HGB CONC 31.6 g/dl (32-36); MEAN PLATELET VOLUME 9.4 fL (7.4-10.4); PLATELET COUNT 260 K/uL (130-400); RED CELL DISTRIBUTION WIDTH CV 16.1 % (11.5-14.5); RED CELL DISTRIBUTION WIDTH SD 50.6 fL (36.4-46.3); WHITE BLOOD COUNT 4.99 K/uL (4.8-10.8)
[2017-12-28 06:32] LABS: ALBUMIN 2.1 gm/dl (3.4-5.0); CALCIUM 7.8 mg/dl (8.5-10.1); CREATININE 1.27 mg/dl (0.60-1.40); POTASSIUM 4.2 mmol/L (3.5-5.1)
[2017-12-28 06:36] LABS: TOTAL PROTEIN 5.3 gm/dl (6.4-8.2)
[2017-12-28 07:14] VITALS: BP 165/81; PULSE 75; TEMP 36.6; O2SAT 98
[2017-12-28] MEDS: SENNA 8.6 MG TAB PO SCH (07:31)
[2017-12-28] MEDS: CYANOCOBALAMIN 500 MCG TAB (VIT B-12) PO SCH (07:31)
[2017-12-28] MEDS: CHOLECALCIFEROL 1000 INTER.UNIT TAB PO SCH (07:32)
[2017-12-28] MEDS: OXYBUTYNIN CHLORIDE 5 MG TABCR PO SCH (07:32)
[2017-12-28] MEDS: ASPIRIN 81 MG ECTAB PO SCH (07:32)
[2017-12-28] MEDS: POLYETHYLENE (MIRALAX) 17 GM PACK PO SCH (07:33)
[2017-12-28] MEDS: FERROUS SULFATE 325 MG TAB PO SCH (07:33)
[2017-12-28] MEDS: SODIUM CHLORIDE 0.9% 1000ML 1,000 ML IV SCH ×2 (07:34→13:48)
--- NOTE | 2017-12-28 09:42 | Discharge Summary ---
Discharge Summary Date of Service Dec 28, 2017. 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 Procedures: Suprapubic Catheterization Medication Reconciliation New Medications: Cefdinir (Omnicef) 300 Mg Cap 300 MG PO DAILY for 5 Days, #5 CAP Continued Medications: Acetaminophen Tab (Tylenol) 325 Mg Tab 650 MG PO Q4H PRN for Pain, TAB Aspirin (Aspirin Ec) 81 Mg Tab 81 MG PO DAILY Cholecalciferol (Vitamin D3) 1,000 Unit Tab 1000 UNITS PO QAM Cyanocobalamin (Vitamin B-12) 1,000 Mcg Tab 1000 MCG PO QAM Ferrous Sulfate (Kp Ferrous Sulfate) 325 Mg Tab 325 MG PO QAM, TAB Meclizine Hcl (Meclizine Hcl) 25 Mg Tab 25 MG PO TID PRN for Dizziness or Vertigo, TAB Metformin Hcl (Glucophage) 1,000 Mg Tab 1000 MG PO BID, TAB Miconazole Nitrate (Topical) (Miconazole Nitrate) 1 Pow Pow 1 APPLN TD QID APPLY TO GROIN/BUTTOCKS FOUR TIMES DAILY FOR FUNGAL INFECTION. Ondansetron Hcl (Zofran) 4 Mg Tab 4 MG PO Q6H PRN for Nausea, TAB Oxybutynin Chloride (Oxybutynin Chloride ER) 10 Mg Tabcr 10 MG PO QAM Polyethylene Glycol 3350 (Miralax) 1 Pow Pow 17 GM PO BID Pramoxine Hcl-Zinc Oxide (Tronolane) 1 Cre Cre 1 APPLN TD Q8 PRN for ITCHING Rosuvastatin Calcium (Crestor) 10 Mg Tab 10 MG PO HS, TAB Sennosides (Sennosides) 8.6 Mg Tab 8.6 MG PO BID Simethicone (Sm Gas Relief) 80 Mg Chw 80 MG PO Q6H PRN for Gas or Constipation Sodium Chloride (Gu Irrigant) (Sodium Chloride 0.9%) 0.9 % Rebecca 1000 ML IV TID RUN AT 100ML/HR Sulfa/Trimethoprim (Bactrim Ds 800MG/160MG) Tab 1 TAB PO BID for 10 Days, TAB BEGIN 12/20/17 X 10 DAYS. Tramadol (Ultram) 50 Mg Tab 50 MG PO Q4H PRN for Pain, TAB Zolpidem Tartrate (Zolpidem Tartrate) 5 Mg Tab 5 MG PO HS PRN for Insomnia, TAB Discharge Exam General Appearance: WD/WN, no apparent distress Respiratory/Chest: chest non-tender, lungs clear, normal breath sounds, no respiratory distress, no accessory muscle use Cardiovascular: regular rate, rhythm, no edema, no gallop, no murmur Abdomen: non tender, soft, + pertinent finding (Colostomy bag, patent. Suprapubic catheter, draining well) Neurologic/Psychiatric: no motor/sensory deficits, alert, oriented x 3, + disoriented Hospital Course Mr. Gian Bhakta presented to [facility] for Obstructive renal failure due to a catheter that was placed in prostatic urethra rather than in the bladder coupled with mental status changes and failure to thrive. ARF -Resolved over the last three days following relief of obstruction by suprapubic catheter -Renal function is near baseline now Urethrocutaneous fistula -Outpatient management with Dr. alves Delirium -Continue to help orient the patient -Appears to be improving patient much more lucent and aware today Failure to thrive -Requires encouragment to eat his food, but is capable. -Requires encouragement to perform Physical therapy. Resident Physician Supervision Note: I interviewed and examined the patient. Discussed with Dr. Piper and agree with findings and plan as documented in the note. Any exceptions or clarifications are listed here: None Documented By: Sal Morrissey feeling better overall ready to go to [facility] vitals noted nad breathing unlabored no pallor or icterus, oriented, conversive and appropriate ARF - obstructive uropathy - improving post suprapubic cath. ARF related to byrne but now improved. continue drainage, follow BMP several times a week for now. outpt urology follow up w Dr Alves locally, referral back to [facility] if needed fistula - no acute issues - outpt management, as above - Dr Alves locally, referral back to [facility] if needed possible UTI - (+) culture may all be from devices and colonization, but with circumstances, obligated to treat for bacterial. follow yeast - not clearly necessary to treat since he is improving without treatment for this. discussed with family on this. encephalopathy secondary to ARF and/or infection - stable. reassurance/ supportive care/time - improving stable for rehab Total Time Spent: Greater than 30 minutes (45) This includes examination of the patient, discharge planning, medication reconciliation, and communication with other providers. Discharge Instructions Please refer to the electronic Patient Visit Report (Discharge Instructions) for additional information. Additional Copies To Becky Proctor; Eric Alves M.D. Resident Tracking Resident Involvement: Resident Care Provided Care Provided: Adult [facility] Medicine
[2017-12-28 10:53] VITALS: BP 153/73; PULSE 67; TEMP 36.4; O2SAT 97
[2017-12-28 12:06] VITALS: BP 153/73; PULSE 67; TEMP 36.4; O2SAT 97
== END 2017-12-28 14:15 | DRG 698 ==
LOC: EDBD 23:05 → C.EDC 23:06 → C.2E 12-25 03:00 → ENRESERV 12-25 03:32 → C.4E 12-27 17:32
PROVIDERS: ADMIT Internal Medicine; ATTEND Family Medicine
PROC: 0TH Urinary System, Insertion (ICD-10-PCS; principal; 2017-12-25)
DX: T83.028A Displacement of other urinary catheter, initial encounter (principal); G93.40 Encephalopathy, unspecified; N17.9 Acute kidney failure, unspecified; N39.0 Urinary tract infection, site not specified; N36.0 Urethral fistula; S37.30XA Unspecified injury of urethra, initial encounter; Z93.3 Colostomy status; Z79.82 Long term (current) use of aspirin; Z79.2 Long term (current) use of antibiotics; E87.5 Hyperkalemia; E11.9 Type 2 diabetes mellitus without complications; D64.9 Anemia, unspecified; N40.1 Benign prostatic hyperplasia with lower urinary tract symptoms; Z85.048 Personal history of other malignant neoplasm of rectum, rectosigmoid junction, and anus; N13.9 Obstructive and reflux uropathy, unspecified

== ENCOUNTER 2023-01-20 18:02 | Inpatient (IN) ==
[2023-01-20 18:44] LABS: Basophils # (auto) 0.05 K/uL (0.00-0.20); Basophils % (auto) 0.3 %; Eosinophils # (auto) 0.04 K/uL (0.00-0.50); Eosinophils % (auto) 0.3 %; Hematocrit (blood only) 42.3 % (42.0-52.0); Hemoglobin 13.3 g/dl (14.0-18.0); Immature Granulocytes # (auto) 0.06 K/uL (0.01-0.20); Immature Granulocytes % (auto) 0.4 %; Lymphocytes # (auto) 0.82 K/uL (1.20-3.40); Lymphocytes % (auto) 5.7 %; Mean Corpuscular Hemoglobin 27.5 pg (25.0-34.0); Mean Corpuscular Hgb Conc 31.4 g/dL (32.0-36.0); Mean Corpuscular Volume 87.6 fL (80.0-100.0); Monocytes # (auto) 0.74 K/uL (0.11-0.59); Monocytes % (auto) 5.1 %; Neutrophils # (auto) 12.76 K/uL (1.40-6.50); Neutrophils % (auto) 88.2 %; Platelet Count 259 K/uL (130-400); RDW Coefficient of Variation 14.6 % (11.5-14.5); RDW Standard Deviation 46.7 fL (36.4-46.3); Red Blood Count 4.83 M/uL (4.70-6.10); White Blood Count 14.47 K/ul (4.8-10.8)
[2023-01-20 19:04] LABS: Albumin Globulin Ratio 1.3 (0.9-2); Albumin Level 4.3 gm/dl (3.4-5.0); Bilirubin,Total 0.5 mg/dl (0.2-1.0); Creatinine Clr Calc Pharmacy 26.6 ml/min; Est GFR (African American) 32.2 ml/min; Est GFR (Non-African American) 27.8 ml/min; Globulin 3.2 gm/dl (2.5-4.0); Total Protein 7.5 gm/dl (6.0-8.3)
[2023-01-20] MEDS ORDERED: ONDANSETRON INJ 2 MG/ML 2 ML VIAL IV STA (20:25)
--- NOTE | 2023-01-20 20:32 | Emergency Department Note ---
History of Present Illness General Chief complaint: Vomiting Stated complaint: VOMIT Time Seen by Provider: 01/20/23 20:11 History of Present Illness Maximum Pain Intensity: 6 82-year-old male presents emergency department with a 8-hour history of nausea vomiting that started after he had a Marks catheter replaced today by Dr. Eddy's office. Patient then went to run errands. And started to have hiccups and then he started to vomit. He had multiple episodes of vomiting. He has an ostomy he states that there is been normal output. He recently was seen by us last week for a urinary tract infection is currently on antibiotics. Patient has had no prior issues when he has had a Marks catheter change. Patient denies cough cold congestion denies fever. There are no other jt igating or alleviating factors Home Medications Medication Instructions Recorded Confirmed Type ferrous sulfate 325 mg (65 mg 325 mg PO QAM 02/24/18 01/20/23 History iron) tablet rosuvastatin 10 mg tablet 10 mg PO HS 02/24/18 01/20/23 History cyanocobalamin (vitamin B-12) 1,000 mcg PO DAILY 12/19/19 01/20/23 History 1,000 mcg tablet (Vitamin B-12) cholecalciferol (vitamin D3) 25 2,000 unit PO DAILY #180 tabs 04/25/20 01/20/23 Rx mcg (1,000 unit) tablet (Vitamin D3) trospium 60 mg capsule,extended 60 mg PO DAILYBB 07/15/21 01/20/23 History release 24 hr amlodipine 2.5 mg tablet 2.5 mg PO DAILY #90 tabs 09/25/21 01/20/23 Rx insulin glargine 100 unit/mL (3 20 unit subcut QPM 04/05/22 01/20/23 History mL) subcutaneous pen (Basaglar KwikPen U-100 Insulin) sitagliptin phosphate 50 mg tablet 50 mg PO DAILY 09/12/22 01/20/23 History (Januvia) cefdinir 300 mg capsule 300 mg PO DAILY 01/20/23 01/20/23 History Allergies Allergy/AdvReac Type Severity Reaction Status Date / Time atorvastatin [From Lipitor] Allergy Unknown Verified 01/20/23 11:17 Past Med/Surg History Medical History (Updated 01/21/23 @ 00:04 by Edwin Proctor DO) Anemia Jewell UTI Chronic kidney disease, stage III (moderate) Diabetes Diarrhea DM (diabetes mellitus), type 2 Obstructive uropathy Pre-syncope Proteinuria Rectal cancer (06/17/17) "Rectal bleeding Status post colonoscopy and biopsy 06/17/2017 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 Plan for combined radiation and chemotherapy followed by possible resection Status post completion of combined radiation and chemotherapy August 30, 2017." On 07/07/17 13:09 Felicia Hannon wrote "Rectal bleeding Status post colonoscopy and biopsy 06/17/2017 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 Plan for combined radiation and chemotherapy followed by possible resection" Syncope and collapse 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 Vitamin D deficiency Surgical History Previous back surgery Family History Other Family history non-contributory Social History Smoking Status: Never smoker Preferred Language: Citizen Of [place] Communication Ability: Effective Visual Impairment: No Limitations 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: Normal Beliefs That Will Affect Care: None marital status: / Current Living Situation: Alone current occupational status: retired Feels Safe at Home: Yes Review of Systems A total of 10 systems reviewed and were otherwise negative Gastrointestinal: + nausea and + vomiting; no abdominal pain Physical Exam Vital Signs Vital Signs - 24 hr 01/20/23 18:17 Temperature 36.1 C L Temperature Source Temporal Artery Scan Pulse Rate 80 Respiratory Rate 18 Respiratory Effort / Characteristics Non-Labored Respiratory Depth Normal Blood Pressure 164/84 H Blood Pressure Mean 110 Pulse Oximetry 95 Oxygen Delivery Method Room Air Sepsis Recent Fever Within 48 Hours No Sepsis New/Unexplained Change in Mental Status No Sepsis Action Taken by Nursing No Action Required GENERAL: Patient is awake alert in no acute distress patient is resting comfortably and showing no signs of anxiety EYES: The conjunctivae are clear. The pupils are round and reactive. EARS, NOSE, MOUTH AND THROAT: The nose is without any evidence of any deformity. Mucous membranes are moist. Tongue is midline. NECK: The neck is nontender and supple. RESPIRATORY: Normal respiratory effort is noted there is no evidence of wheezing rhonchi or rales CARDIOVASCULAR: Regular rate and rhythm noted there no murmurs rubs or gallops normal S1 normal S2. GASTROINTESTINAL: The abdomen is soft. Abdomen is nontender. Ostomy is present in the right lower quadrant : Marks catheter is present BACK: No midline tenderness or or step-off noted range of motion in flexion extension as well as rotation no signs of muscle spasm noted MUSCULOSKELETAL/EXTREMITIES: There is no evidence of gross deformity full range of motion is noted in the hips and shoulders. SKIN: There is no obvious evidence of any rash. There are no petechiae, pallor or cyanosis noted. NEUROLOGIC: Patient is awake alert and oriented x3 strength is symmetric Course Reevaluation(s) Reevaluation #1: Patient is resting in no distress he does state that he feels general malaise on repeat examination but does not have any specific abdominal pain. Time: 23:00 Consultations Consultation #1: Case was discussed with the [facility]ist for admission Time: 23:00 Administered Medications Lactated Ringer's (Lr) 1,000 mls @ 80 mls/hr IV .[id number] MARIANA Stop: 01/21/23 11:44 Last Admin: 01/20/23 23:44 Dose: 80 mls/hr Documented By: SHREYAS Discontinued Medications Cefepime HCl (Maxipime) 20 mls @ 5 mls/min IV NOW STA; Protocol Stop: 01/20/23 23:16 Last Admin: 01/20/23 23:44 Dose: 5 mls/min Documented By: SHREYAS Ondansetron HCl (Ondansetron Inj 2 Mg/Ml 2 Ml Vial) 4 mg IV NOW STA Stop: 01/20/23 20:26 Last Admin: 01/20/23 20:40 Dose: 4 mg Documented By: SHREYAS Medical Decision Making Medical Records Attestation: I reviewed the patient's medical records. Home Medications Current Medication List: was personally reviewed by me Laboratory Data Attestation: I reviewed the patient's lab results. Lab results interpreted by me, leukocytosis is present, patient has an elevated creatinine which is around baseline and a mild hyperglycemia 01/20/23 18:31 01/20/23 18:31 Lab Results 01/20/23 01/20/23 01/20/23 Range/Units 18:31 18:31 21:20 WBC 14.47 H (4.8-10.8) K/ul RBC 4.83 (4.70-6.10) M/uL Hgb 13.3 L (14.0-18.0) g/dl Hct 42.3 (42.0-52.0) % MCV 87.6 (80.0-100.0) fL MCH 27.5 (25.0-34.0) pg MCHC 31.4 L (32.0-36.0) g/dL RDW Std Deviation 46.7 H (36.4-46.3) fL RDW Coeff of Timoteo 14.6 H (11.5-14.5) % Plt Count 259 (130-400) K/uL MPV 10.0 (9.4-12.4) fL Immature Gran % (Auto) 0.4 % Neut % (Auto) 88.2 % Lymph % (Auto) 5.7 % Frontier % (Auto) 5.1 % Eos % (Auto) 0.3 % Baso % (Auto) 0.3 % Neut # (Auto) 12.76 H (1.40-6.50) K/uL Lymph # (Auto) 0.82 L (1.20-3.40) K/uL Frontier # (Auto) 0.74 H (0.11-0.59) K/uL Eos # (Auto) 0.04 (0.00-0.50) K/uL Baso # (Auto) 0.05 (0.00-0.20) K/uL Immature Gran # (Auto) 0.06 (0.01-0.20) K/uL Sodium 141 (136-145) mmol/L Potassium 4.0 (3.5-5.1) mmol/L Chloride 106 (98-107) mmol/L Carbon Dioxide 26 (21-32) mmol/L Anion Gap 9 (3-11) BUN 45 H (6-23) mg/dl Creatinine 2.14 H (0.6-1.4) mg/dl Est Cr Clr Drug Dosing 26.6 ml/min Est GFR ( Amer) 32.2 ml/min Est GFR (Non-Af Amer) 27.8 ml/min BUN/Creatinine Ratio 21.0 H (10-20) Glucose 174 H (70-99(Fasting)) mg/dl Lactate 1.1 (0.4-2.0) mmol/L Calcium 10.0 (8.6-10.3) mg/dl Total Bilirubin 0.5 (0.2-1.0) mg/dl AST 19 (13-39) U/L ALT 16 (7-52) U/L Alkaline Phosphatase 88 (34-104) U/L Total Protein 7.5 (6.0-8.3) gm/dl Albumin 4.3 (3.4-5.0) gm/dl Globulin 3.2 (2.5-4.0) gm/dl Albumin/Globulin Ratio 1.3 (0.9-2) Lipase 17 (11-82) U/L Urine Color Urine Appearance (Clear) Urine pH (4.5-7.5) Ur Specific [place] (1.000-1.030) Urine Protein (Negative) Urine Glucose (UA) (Negative) Urine Ketones (Negative) Urine Blood (Negative) Urine Nitrite (Negative) Urine Bilirubin (Negative) Urine Urobilinogen (Negative) Ur Leukocyte Esterase (Negative) Urine WBC (Auto) (0-5) /hpf Urine RBC (Auto) (0-4) /hpf U Hyaline Cast (Auto) (0-5) /lpf U Epithel Cells (Auto) (0-5) /lpf Urine Bacteria (Auto) (Negative) Ur Renal Epithelial Cell Granular Casts (0) /lpf 01/20/23 Range/Units Unknown WBC (4.8-10.8) K/ul RBC (4.70-6.10) M/uL Hgb (14.0-18.0) g/dl Hct (42.0-52.0) % MCV (80.0-100.0) fL MCH (25.0-34.0) pg MCHC (32.0-36.0) g/dL RDW Std Deviation (36.4-46.3) fL RDW Coeff of Timoteo (11.5-14.5) % Plt Count (130-400) K/uL MPV (9.4-12.4) fL Immature Gran % (Auto) % Neut % (Auto) % Lymph % (Auto) % Frontier % (Auto) % Eos % (Auto) % Baso % (Auto) % Neut # (Auto) (1.40-6.50) K/uL Lymph # (Auto) (1.20-3.40) K/uL Frontier # (Auto) (0.11-0.59) K/uL Eos # (Auto) (0.00-0.50) K/uL Baso # (Auto) (0.00-0.20) K/uL Immature Gran # (Auto) (0.01-0.20) K/uL Sodium (136-145) mmol/L Potassium (3.5-5.1) mmol/L Chloride (98-107) mmol/L Carbon Dioxide (21-32) mmol/L Anion Gap (3-11) BUN (6-23) mg/dl Creatinine (0.6-1.4) mg/dl Est Cr Clr Drug Dosing ml/min Est GFR ( Amer) ml/min Est GFR (Non-Af Amer) ml/min BUN/Creatinine Ratio (10-20) Glucose (70-99(Fasting)) mg/dl Lactate (0.4-2.0) mmol/L Calcium (8.6-10.3) mg/dl Total Bilirubin (0.2-1.0) mg/dl AST (13-39) U/L ALT (7-52) U/L Alkaline Phosphatase (34-104) U/L Total Protein (6.0-8.3) gm/dl Albumin (3.4-5.0) gm/dl Globulin (2.5-4.0) gm/dl Albumin/Globulin Ratio (0.9-2) Lipase (11-82) U/L Urine Color Yellow Urine Appearance Cloudy A (Clear) Urine pH 5.0 (4.5-7.5) Ur Specific [place] 1.017 (1.000-1.030) Urine Protein 4+ H (Negative) Urine Glucose (UA) 1+ H (Negative) Urine Ketones Trace H (Negative) Urine Blood 2+ H (Negative) Urine Nitrite Negative (Negative) Urine Bilirubin Negative (Negative) Urine Urobilinogen Negative (Negative) Ur Leukocyte Esterase 1+ H (Negative) Urine WBC (Auto) >30 H (0-5) /hpf Urine RBC (Auto) 0-4 (0-4) /hpf U Hyaline Cast (Auto) 5-10 H (0-5) /lpf U Epithel Cells (Auto) >30 H (0-5) /lpf Urine Bacteria (Auto) Negative (Negative) Ur Renal Epithelial Cell Not Reportable Granular Casts 5-10 H (0) /lpf Imaging Data Attestation: I personally reviewed and interpreted this imaging study as follows: My Impression: CT abdomen pelvis per my interpretation no obvious ureterolithiasis Radiologist's Impression: Abdomen/Pelvis CT 01/20/23 20:12 Exam(s): CT ABDOMEN + PELVIS Without Contrast EXAM: CT Abdomen and Pelvis Without Intravenous Contrast CLINICAL HISTORY: Reason for exam: abd pain. TECHNIQUE: Axial computed tomography images of the abdomen and pelvis without intravenous contrast. CTDI is 23.15 mGy and DLP is 1164.47 mGy-cm. Automated exposure control was utilized for the study. A dose lowering technique was utilized adhering to the principles of ALARA. COMPARISON: No relevant prior studies available. FINDINGS: Lung bases: Unremarkable. No mass. No consolidation. Heart: Small pericardial effusion. Cardiomegaly. ABDOMEN: Liver: Unremarkable. Gallbladder and bile ducts: Cholecystectomy. No ductal dilation. Pancreas: Unremarkable. No ductal dilation. Spleen: Unremarkable. No splenomegaly. Adrenals: Unremarkable. No mass. Kidneys and ureters: Unremarkable. No hydronephrosis or nephrolithiasis. Stomach and bowel: RIGHT lower quadrant ostomy with large parastomal hernia measuring 16.6 x 9.7 cm. No obstruction at this time however, the peristomal hernia contains multiple small bowel loops. Additional ventral abdominal wall hernia contains a singular small bowel loop and measures approximately 3.7 x 3.7 cm. No mucosal thickening. PELVIS: Appendix: No findings to suggest acute appendicitis. Bladder: Suprapubic catheter terminates in the urinary bladder. No stones. Reproductive: Severely enlarged prostate gland measures 7.0 cm medial- lateral. ABDOMEN and PELVIS: Intraperitoneal space: Unremarkable. No free air. No significant fluid collection. Bones/joints: No acute fracture. No dislocation. Soft tissues: See above. Vasculature: Unremarkable. No abdominal aortic aneurysm. Lymph nodes: Unremarkable. No enlarged lymph nodes. IMPRESSION: 1. Small pericardial effusion. 2. Severely enlarged prostate gland measures 7.0 cm medial-lateral. 3. RIGHT lower quadrant ostomy with large parastomal hernia measuring 16. 6 x 9.7 cm. No obstruction at this time however, the peristomal hernia contains multiple small bowel loops. 4. Suprapubic catheter terminates in the urinary bladder. 5. Additional ventral abdominal wall hernia contains a singular small bowel loop and measures approximately 3.7 x 3.7 cm. Electronically signed by: Fred Ramirez MD 01/20/23 21:06 PM ECG Data Attestation: I personally reviewed and interpreted this ECG as follows: MDM Narrative Medical decision making differential diagnosis includes gastritis, gastroenteritis, colitis, sepsis, urinary tract infection, small bowel obstruction, electrolyte abnormality Plan is to check labs, sepsis labs, CT abdomen pelvis, give IV Zofran External medical records were reviewed by me Family at bedside provided me history Patient may be septic due to Marks catheter placement today patient does have abnormal CT but does not have any clinical evidence at this time of a bowel obstruction. Concern is that the patient may be septic as he did have a Marks catheter reinserted today. Patient was started on IV Rocephin. Patient is not in septic shock at the time of disposition Impression & Plan Acute UTI (urinary tract infection), Vomiting Discharge Plan Visit Data Chief Complaint: Vomiting Stated Complaint: VOMIT ED Provider: Edwin Proctor Discharge Problem: Acute UTI (urinary tract infection), Vomiting Patient Disposition: Admitted As Inpatient Forms Stand Alone Forms: My [facility] Prescriptions Prescriptions: No Action trospium 60 mg capsule,extended release 24hr 60 mg PO DAILYBB Rx Instructions: must be taken on empty stomach at least 1 hour before a meal/food with water only cholecalciferol (vitamin D3) [Vitamin D3] 25 mcg (1,000 unit) tablet 2,000 unit PO DAILY Qty: 180 0RF amlodipine 2.5 mg tablet 2.5 mg PO DAILY Qty: 90 3RF insulin glargine [Basaglar KwikPen U-100 Insulin] 100 unit/mL (3 mL) insulin pen 20 unit subcut QPM ferrous sulfate 325 mg (65 mg iron) Tablet 325 mg PO QAM rosuvastatin 10 mg tablet 10 mg PO HS cyanocobalamin (vitamin B-12) [Vitamin B-12] 1,000 mcg tablet 1,000 mcg PO DAILY Januvia 50 mg tablet 50 mg PO DAILY cefdinir 300 mg capsule 300 mg PO DAILY Rx Instructions: take for 8 days ordered 01/14/23 Referrals Referrals: Bisi Rhodes [Primary Care Provider] -
--- NOTE | 2023-01-20 21:08 | CT Scan Report ---
Exam(s): CT ABDOMEN + PELVIS Without Contrast EXAM: CT Abdomen and Pelvis Without Intravenous Contrast CLINICAL HISTORY: Reason for exam: abd pain. TECHNIQUE: Axial computed tomography images of the abdomen and pelvis without intravenous contrast. CTDI is 23.15 mGy and DLP is 1164.47 mGy-cm. Automated exposure control was utilized for the study. A dose lowering technique was utilized adhering to the principles of ALARA. COMPARISON: No relevant prior studies available. FINDINGS: Lung bases: Unremarkable. No mass. No consolidation. Heart: Small pericardial effusion. Cardiomegaly. ABDOMEN: Liver: Unremarkable. Gallbladder and bile ducts: Cholecystectomy. No ductal dilation. Pancreas: Unremarkable. No ductal dilation. Spleen: Unremarkable. No splenomegaly. Adrenals: Unremarkable. No mass. Kidneys and ureters: Unremarkable. No hydronephrosis or nephrolithiasis. Stomach and bowel: RIGHT lower quadrant ostomy with large parastomal hernia measuring 16.6 x 9.7 cm. No obstruction at this time however, the peristomal hernia contains multiple small bowel loops. Additional ventral abdominal wall hernia contains a singular small bowel loop and measures approximately 3.7 x 3.7 cm. No mucosal thickening. PELVIS: Appendix: No findings to suggest acute appendicitis. Bladder: Suprapubic catheter terminates in the urinary bladder. No stones. Reproductive: Severely enlarged prostate gland measures 7.0 cm medial- lateral. ABDOMEN and PELVIS: Intraperitoneal space: Unremarkable. No free air. No significant fluid collection. Bones/joints: No acute fracture. No dislocation. Soft tissues: See above. Vasculature: Unremarkable. No abdominal aortic aneurysm. Lymph nodes: Unremarkable. No enlarged lymph nodes. IMPRESSION: 1. Small pericardial effusion. 2. Severely enlarged prostate gland measures 7.0 cm medial-lateral. 3. RIGHT lower quadrant ostomy with large parastomal hernia measuring 16. 6 x 9.7 cm. No obstruction at this time however, the peristomal hernia contains multiple small bowel loops. 4. Suprapubic catheter terminates in the urinary bladder. 5. Additional ventral abdominal wall hernia contains a singular small bowel loop and measures approximately 3.7 x 3.7 cm. Electronically signed by: Fred Ramirez MD 01/20/23 21:06 PM
[2023-01-20 22:32] LABS: Appearance Urine Cloudy (Clear); Bacteria Urine Automated Negative (Negative); Bilirubin Urine Negative (Negative); Blood Urine 2+ (Negative); Color Urine Yellow; Epithelial Cell Urine Auto >30 /lpf (0-5); Glucose Urine UA 1+ (Negative); Ketones Urine Trace (Negative); Leukocyte Esterase Urine 1+ (Negative); Nitrite Urine Negative (Negative); Protein Urine 4+ (Negative); RBC Urine Automated 0-4 /hpf (0-4); Specific Gravity Urine 1.017 (1.000-1.030); Urobilinogen Urine Negative (Negative); WBC Urine Automated >30 /hpf (0-5)
[2023-01-20] MEDS ORDERED: CEFEPIME 20 ML IV STA (23:13)
[2023-01-20] MEDS ORDERED: LACTATED RINGER'S 1,000 ML IV SCH (23:15)
--- NOTE | 2023-01-20 23:24 | History & Physical Report ---
Date of Service January 20, 2023 Assessment & Plan (1) Urinary tract infection: Plan: -WBC 14.5, not meeting SIRS criteria on admission -UA suggestive of infection along with leukocytosis and positive UCx with proteus mirabilis 1 week prior, in setting of chronic suprapubic catheter -Previous 01/12 UCx with pansensitive proteus mirabilis, though will treat empirically with broad spectrum for now -Cefepime initiated, narrow per sensitivities. Can likely switch to ceftriaxone in AM -Repeat UCx pending -BCx pending -Trend CBC (2) Acute kidney injury: Plan: -Cr 2.14 in setting of CKD3 -Likely pre-renal from volume depletion 2/2 GI losses, though possible post- renal contribution from known severe BPH and history of previous catheter obstruction -Fluid repletion ongoing -Trend BMP (3) Suprapubic catheter: Plan: -Chronic suprapubic catheter since 2018 w/ monthly exchanges -Did have recent catheter obstruction in 01/12 ER visit -Urology consulted for AM for catheter management + UTI (4) DM (diabetes mellitus), type 2: Plan: -Holding home Januvia -Lantus, SSI (5) Hyperlipidemia: Plan: -Continue statin (6) Hypertension: Plan: -Continue amlodipine (7) Anemia: Plan: -Hgb 13.3 on admission -No hematuria noted, hemodynamically stable- low suspicion for acute bleeding -Trend CBC (8) Chronic kidney disease, stage III (moderate): Plan: -Baseline appears Cr 1.7-1.8 -[place] treatment as above -Trend BMP (9) Rectal cancer: Plan: -S/p completed chemotherapy, radiation and resection w/ ostomy -Normal ostomy output Plan FENGI: NPO for potential urology procedure in AM Code status: Full DVT prophylaxis: SCDs Isolation: None Disposition: Medical/surgical History of Present Illness Chief Complaint: Nausea/vomiting Primary Care Provider: Bisi Rhodes 82 yo M with PMH CKD3, DM2, rectal adenocarcinoma s/p radiation/chemotherapy/resection with ostomy, HTN, HLD, overactive bladder, chronic suprapubic catheter with monthly exchange since 2018 presenting with nausea/vomiting. Pt went to ER on 01/13 due to lower abdominal pain and concern for urinary retention/blockage of catheter. In ER, catheter was flushed. UA at time was suggestive of infection and pt was started on cefdinir 300 mg daily (adjusted for renal function from BID). UCx later grew proteus mirabilis. Pt discharged home and did well, did not have any further symptoms. He presented to urology office today for catheter replacement which went well. Shortly after departing, he had nausea with few episodes of NBNB emesis. He developed persistent hiccups and chest tightness and called urology office who advised him to go to ER for further evaluation. Pt arrived to ER hemodynamically stable. Initial evaluation significant for WBC 14.5, Cr 2.14, UA with LE, WBCs, hyaline + granular casts, epithelial cells. CTAP noting small pericardial effusion, severely enlarged prostate gland, RLQ ostomy with large parastomal hernia w/o obstruction, ventral wall hernia with small bowel loop. ER interventions include Zofran 4 mg IV. At present, pt denies abdominal pain. He is fatigued and thirsty but denies new complaints. Did have chills earlier in ER but no fever, denies any recent dysuria or urinary frequency. Allergies Allergy/AdvReac Type Severity Reaction Status Date / Time atorvastatin [From Lipitor] Allergy Unknown Verified 01/20/23 11:17 Home Medications Medication Instructions Recorded Confirmed Type ferrous sulfate 325 mg (65 mg 325 mg PO QAM 02/24/18 01/20/23 History iron) tablet rosuvastatin 10 mg tablet 10 mg PO HS 02/24/18 01/20/23 History cyanocobalamin (vitamin B-12) 1,000 mcg PO DAILY 12/19/19 01/20/23 History 1,000 mcg tablet (Vitamin B-12) cholecalciferol (vitamin D3) 25 2,000 unit PO DAILY #180 tabs 04/25/20 01/20/23 Rx mcg (1,000 unit) tablet (Vitamin D3) trospium 60 mg capsule,extended 60 mg PO DAILYBB 07/15/21 01/20/23 History release 24 hr amlodipine 2.5 mg tablet 2.5 mg PO DAILY #90 tabs 09/25/21 01/20/23 Rx insulin glargine 100 unit/mL (3 20 unit subcut QPM 04/05/22 01/20/23 History mL) subcutaneous pen (Basaglar KwikPen U-100 Insulin) sitagliptin phosphate 50 mg tablet 50 mg PO DAILY 09/12/22 01/20/23 History (Januvia) cefdinir 300 mg capsule 300 mg PO DAILY 01/20/23 01/20/23 History Past Med/Surg History Medical History Anemia Jewell UTI Chronic kidney disease, stage III (moderate) Diabetes Diarrhea DM (diabetes mellitus), type 2 Obstructive uropathy Pre-syncope Proteinuria Rectal cancer (06/17/17) "Rectal bleeding Status post colonoscopy and biopsy 06/17/2017 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 Plan for combined radiation and chemotherapy followed by possible resection Status post completion of combined radiation and chemotherapy August 30, 2017." On 07/07/17 13:09 Felicia Hannon wrote "Rectal bleeding Status post colonoscopy and biopsy 06/17/2017 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 Plan for combined radiation and chemotherapy followed by possible resection" Syncope and collapse 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 Vitamin D deficiency Surgical History Previous back surgery Family History Other Family history non-contributory Social History Smoking Status: Never smoker Hx Alcohol Use: No Hx Substance Use: No Preferred Language: Marshallese Communication Ability: Effective Visual Impairment: No Limitations 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: Normal Manager Stylist Required: No Beliefs That Will Affect Care: None marital status: / Current Living Situation: Alone Current Living Situation Comment: home current occupational status: retired Feels Safe at Home: Yes Assistive Devices: Cane, Glasses and Walker Review of Systems Review of Systems: Per HPI Physical Exam Physical Exam: General: well-appearing, no acute distress HEENT: PERRL, EOMI, conjunctivae clear without injection, anicteric sclerae, moist mucous membranes, clear oropharynx without exudate or erythema Neck: supple, trachea midline, no thyromegaly, no JVD, no cervical lymphadenopathy CV: RRR, normal S1 and S2, no murmurs Resp: CTAB, no increased work of breathing, no crackles or wheezes Abd: Soft, palpable bulge near ostomy, no suprapubic tenderness, nondistended, no guarding or rebound, no hepatosplenomegaly. Ostomy bag with normal output : Marks with normal urine MSK: Normal bulk of all four extremities Neuro: AOx3, no focal motor or sensory deficits Skin: no rashes or lesions, warm and dry Ext: no LE peripheral edema or erythema, capillary refill <2s in all four extremities, 2+ LE peripheral pulses b/l Results & Data Results & Data Vital Signs (Past 12 Hours) Vital Signs Temp Pulse Resp BP Pulse Ox O2 Del Method 01/20/23 18:17 36.1 C L 80 18 164/84 H 95 Room Air Code Status & VTE Plan VTE Prophylaxis Plan VTE Prophylaxis will be ordered: Yes Supervising Physician Co-Signing Physician Notes Attending addendum: I have physically seen this patient, have supervised the medical residents activities, and agree with the H&P unless as otherwise noted. Assessment and Plan: Urinary tract infection- Follow urine culture and sensitivity Symptoms noted with chronic suprapubic catheter History of Proteus mirabilis pansensitive Received cefepime in the ED, will admit on ceftriaxone 2 g IV every 24 hours Acute kidney injury on CKD- Creatinine 2.14 on admission, with base 1.7-2.17 IV fluids and recheck laboratories in a.m. Diabetes mellitus- Hold Januvia Insulin glargine and SSI for coverage Hypertension- Continue amlodipine with hold parameters Remaining orders and notations as noted Resident Activity Tracking Resident Involvement: Resident Care Provided Care Provided: Adult Hospital Medicine
[2023-01-21] MEDS ORDERED: GLUCOSE 10 TAB/TUBE PO PRN (01:26)
[2023-01-21] MEDS ORDERED: GLUCAGON FOR INJ 1 MG VIAL SQ PRN (01:26)
[2023-01-21] MEDS ORDERED: CARBOHYDRATES FOR HYPOGLYCEMIA PO PRN (01:26)
[2023-01-21] MEDS ORDERED: GLUCOSE 40% GEL 15 GM TUBE PO PRN (01:26)
[2023-01-21] MEDS ORDERED: DEXTROSE 50% 50 ML SYRINGE IV PRN (01:26)
[2023-01-21] MEDS: OXYBUTYNIN CHLORIDE XL 5 MG TABCR PO SCH (06:08)
[2023-01-21] MEDS: INSULIN ASPART PER UNIT CHARGE SC SCH ×4 (06:39→20:53)
--- NOTE | 2023-01-21 07:30 | Hospitalist Progress Note ---
Date of Service January 21, 2023 Assessment & Plan (1) Urinary tract infection: Plan: -WBC 14.5, not meeting SIRS criteria on admission UTI due to suprapubic catheter -UA suggestive of infection along with leukocytosis and positive UCx with proteus mirabilis 1 week prior, in setting of chronic suprapubic catheter -Previous 01/12 UCx with pansensitive proteus mirabilis, though will treat empirically with broad spectrum for now -Cefepime initiated, narrow per sensitivities. -Repeat UCx pending -BCx pending (2) Acute kidney injury: Plan: -Cr 2.14 in setting of CKD3 -Likely pre-renal from volume depletion 2/2 GI losses, though possible post- renal contribution from known severe BPH and history of previous catheter obstruction - (3) Suprapubic catheter: Plan: -Chronic suprapubic catheter since 2017 w/ monthly exchanges -Did have recent catheter obstruction in 01/12 ER visit, grew proteus -Urology consulted 01/20 changed catheter, continue outpt management + treat current UTI (4) DM (diabetes mellitus), type 2: Plan: -Holding home Januvia -Lantus, SSI (5) Hyperlipidemia: Plan: -Continue statin (6) Hypertension: Plan: -Continue amlodipine (7) Anemia: Plan: -Hgb 13.3 on admission -No hematuria noted, hemodynamically stable- low suspicion for acute bleeding (8) Rectal cancer: Plan: -S/p completed chemotherapy, radiation and resection w/ ostomy -Normal ostomy output Plan Code status: Full DVT prophylaxis: SCDs Admission and Anticipated Discharge Date Admission Date: January 20, 2023 Subjective pt is wanting to go home tomorrow, feels better that admission was with ER visit on 01/12 and culture did show proteus. blood and urine cultures currently are negative Physical Exam Physical Exam: Pt is awake and alert, ostomy not with much output, Pt states no matter what wants to go home in am 01/22/23 Results & Data Results & Data Vital Signs (Past 12 Hours) Vital Signs Temp Pulse Resp BP Pulse Ox O2 Del Method 01/21/23 01:29 97.7 F 68 18 167/69 H 99 Room Air 01/20/23 22:03 81 16 145/72 H 97 Room Air 01/20/23 20:03 79 16 139/75 96 Room Air Laboratory Results review cbc review chemistry PG Care Time/CCT Total # of Minutes Spent Total Time Spent with Patient: Total time spent is greater than 50% in coordination of care (as documented) at patient's floor/unit and/or counseling patient: Coding Level of Care Code 55870 SUB INP/OBS CARE 2/35MIN Diagnoses Urinary tract infection N39.0 Acute kidney injury N17.9 Suprapubic catheter Z93.59 DM (diabetes mellitus), type 2 E11.9 Hyperlipidemia E78.5 Hypertension I10 Anemia D64.9 Rectal cancer C20
[2023-01-21 07:38] VITALS: O2SAT 97
[2023-01-21 08:24] LABS: Basophils # (auto) 0.04 K/uL (0.00-0.20); Basophils % (auto) 0.5 %; Eosinophils # (auto) 0.15 K/uL (0.00-0.50); Eosinophils % (auto) 1.9 %; Hematocrit (blood only) 34.5 % (42.0-52.0); Immature Granulocytes # (auto) 0.02 K/uL (0.01-0.20); Immature Granulocytes % (auto) 0.3 %; Lymphocytes # (auto) 0.73 K/uL (1.20-3.40); Lymphocytes % (auto) 9.4 %; Mean Corpuscular Hemoglobin 27.9 pg (25.0-34.0); Mean Corpuscular Hgb Conc 31.9 g/dL (32.0-36.0); Mean Corpuscular Volume 87.6 fL (80.0-100.0); Mean Platelet Volume 9.9 fL (9.4-12.4); Monocytes # (auto) 0.57 K/uL (0.11-0.59); Monocytes % (auto) 7.3 %; Neutrophils # (auto) 6.28 K/uL (1.40-6.50); Neutrophils % (auto) 80.6 %; Platelet Count 225 K/uL (130-400); RDW Coefficient of Variation 14.6 % (11.5-14.5); RDW Standard Deviation 46.8 fL (36.4-46.3); Red Blood Count 3.94 M/uL (4.70-6.10); White Blood Count 7.79 K/ul (4.8-10.8)
[2023-01-21 08:36] LABS: BUN Creatinine Ratio 19.4 (10-20); Calcium 8.7 mg/dl (8.6-10.3); Est GFR (African American) 32.8 ml/min; Est GFR (Non-African American) 28.3 ml/min; Potassium 4.1 mmol/L (3.5-5.1)
[2023-01-21] MEDS: LANTUS PER UNIT CHARGE SQ SCH ×2 (08:40→20:52)
[2023-01-21] MEDS: amLODIPine BESYLATE 5 MG TAB PO SCH (08:42)
--- NOTE | 2023-01-21 09:42 | Urology Consultation ---
Date of Consultation January 21, 2023 Assessment & Plan (1) Acute UTI (urinary tract infection): (2) Suprapubic catheter: 82-year-old male with chronic suprapubic catheter admitted for vomiting, suspected UTI. Urology consulted for UTI, suprapubic catheter Patient afebrile and hemodynamically stable Labs showcreatinine 2.11, WBC 7.79, hemoglobin 11.0 Urine and blood cultures are pending Recommend continue broad-spectrum antibiotics and narrow per sensitivity data when available CT imaging reviewed and suprapubic catheter in approprate position Suprapubic catheter is patent and draining clear yellow urine Catheter was exchanged yesterday on 01/20 - maintain current catheter Can gently flush catheter as needed if it becomes obstructed No acute intervention warranted at this time - okay to resume diet from standpoint Continue supportive care, antibiotics and medical management per hospital medicine Continue with monthly catheter exchanges with urology office will sign off, please contact our service with any additional questions History of Present Illness Reason for Consultation: UTI, suprapubic catheter, urinary obstruction Requesting Physician: Dr. Boyd Attending Physician: Avelino Llanos MD History of Present Illness This is an 82-year-old male with past medical history of hypertension, hyperlipidemia, CKD, type 2 diabetes, rectal adenocarcinoma status post radiation, chemotherapy, resection with ostomy, BPH with obstruction, and chronic suprapubic catheter who presented to the emergency department on 01/20/2023 with nausea and vomiting after outpatient suprapubic catheter exchange. On arrival, he was afebrile. Labs showed leukocytosis of 14.47, hemoglobin 13.3, creatinine 2.14, lactate 1.1. Urinalysis showed 4+ protein, 1+ glucose, trace ketones, 2+ blood, 1+ leukocyte esterases, >30 WBC, >30 epithelial cells and negative for bacteria. He underwent CT imaging. CT A/P independently reviewed and showed no hydronephrosis, significantly enlarged prostate gland, suprapubic catheter positioned within the bladder. ED course: IV fluids, Cefepime, and Ondansetron. Urology is consulted for evaluation of UTI, suprapubic catheter. Patient is known to our service, follows with Dr. Eddy. Patient has history of BPH with obstruction. He has a chronic suprapubic catheter exchanged monthly. Of note, he was evaluated in the ED on 01/12 for obstructed catheter. Catheter was irrigated and he was treated for suspected acute UTI. UCx 01/12 grew out 80k cfu Proteus, pansensitive. Patient was treated with Cefdinir 300 mg daily. Today's labscreatinine 2.11, hemoglobin 11.0, WBC 7.79. Urine and blood cultures pending. On IV cefepime. Patient seen and examined at bedside. He is awake, alert and resting in bed. Denies abdominal or suprapubic discomfort. Suprapubic catheter patent and draining clear yellow urine. Catheter was exchanged yesterday in the urology office on 01/20. Denies nausea, vomiting, fever or chills at present. Allergies Allergy/AdvReac Type Severity Reaction Status Date / Time atorvastatin [From Lipitor] Allergy Unknown Verified 01/20/23 11:17 Home Medications Medication Instructions Recorded Confirmed Type ferrous sulfate 325 mg (65 mg 325 mg PO QAM 02/24/18 01/20/23 History iron) tablet rosuvastatin 10 mg tablet 10 mg PO HS 02/24/18 01/20/23 History cyanocobalamin (vitamin B-12) 1,000 mcg PO DAILY 12/19/19 01/20/23 History 1,000 mcg tablet (Vitamin B-12) cholecalciferol (vitamin D3) 25 2,000 unit PO DAILY #180 tabs 04/25/20 01/20/23 Rx mcg (1,000 unit) tablet (Vitamin D3) trospium 60 mg capsule,extended 60 mg PO DAILYBB 07/15/21 01/20/23 History release 24 hr amlodipine 2.5 mg tablet 2.5 mg PO DAILY #90 tabs 09/25/21 01/20/23 Rx insulin glargine 100 unit/mL (3 20 unit subcut QPM 04/05/22 01/20/23 History mL) subcutaneous pen (Basaglar KwikPen U-100 Insulin) sitagliptin phosphate 50 mg tablet 50 mg PO DAILY 09/12/22 01/20/23 History (Januvia) cefdinir 300 mg capsule 300 mg PO DAILY 01/20/23 01/20/23 History Patient History Medical History Anemia Jewell UTI Chronic kidney disease, stage III (moderate) Diabetes Diarrhea DM (diabetes mellitus), type 2 Obstructive uropathy Pre-syncope Proteinuria Rectal cancer (06/17/17) "Rectal bleeding Status post colonoscopy and biopsy 06/17/2017 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 Plan for combined radiation and chemotherapy followed by possible resection Status post completion of combined radiation and chemotherapy August 30, 2017." On 07/07/17 13:09 Felicia M Riddhi wrote "Rectal bleeding Status post colonoscopy and biopsy 06/17/2017 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 Plan for combined radiation and chemotherapy followed by possible resection" Syncope and collapse 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 Vitamin D deficiency Surgical History Previous back surgery Family History Other Family history non-contributory Social History Smoking Status: Never smoker Hx Alcohol Use: No Hx Substance Use: No Preferred Language: Guyanese Communication Ability: Effective Visual Impairment: No Limitations 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: Normal Manufacturing Supervisor Required: No Beliefs That Will Affect Care: None marital status: / Current Living Situation: Alone Current Living Situation Comment: home current occupational status: retired Other Information That Helps Us Care for You: No Feels Safe at Home: Yes Safety Concerns: Feels Safe At This Time Assistive Devices: Cane, Glasses and Walker Review of Systems Review of Systems: All systems reviewed & are unremarkable except as noted in HPI & below Physical Exam Physical Exam: General: no acute distress HEENT: Normocephalic, mucous membranes dry Pulmonary: Nonlabored respirations Abdomen: Nondistended, soft, nontender, ostomy in place Extremities: Moves all 4 spontaneously Neuro: No gross deficits Psych: alert and oriented, normal mood Skin: Warm, dry, no rashes noted : suprapubic catheter patent and draining clear yellow urine Results & Data Vital Signs (Past 12 Hours) Vital Signs Temp Pulse Resp BP Pulse Ox O2 Del Method 01/21/23 07:37 36.5 C 72 18 154/76 H 97 Room Air 01/21/23 01:29 36.5 C 68 18 167/69 H 99 Room Air 01/20/23 22:03 81 16 145/72 H 97 Room Air PG Care Time/CCT Total # of Minutes Spent Total Time Spent with Patient: Total time spent is greater than 50% in coordination of care (as documented) at patient's floor/unit and/or counseling patient: Coding Level of Care Code 96291 INT INP/OBS CARE 2/55MIN Diagnoses Acute UTI (urinary tract infection) N39.0 Suprapubic catheter Z93.59 Time Spent (min) 60
[2023-01-21] MEDS: HYDROCORTISONE 2.5% CR 30 GM TUBE EXT PRN ×2 (09:45→21:01)
[2023-01-21] MEDS ORDERED: Nursing to Pharmacy Communication SCH (16:00)
[2023-01-21] MEDS ORDERED: CEFEPIME 1,000 MG in SYRINGE 0 ML IV SCH (18:00)
--- NOTE | 2023-01-21 19:40 | Billing Data ---
Date of Service January 21, 2023 Coding Level of Care Code 05015 INT INP/OBS CARE
[2023-01-21] MEDS ORDERED: ROSUVASTATIN CALCIUM 10 MG TAB PO SCH (21:00)
[2023-01-22] MEDS: OXYBUTYNIN CHLORIDE XL 5 MG TABCR PO SCH (06:09)
[2023-01-22] MEDS: INSULIN ASPART PER UNIT CHARGE SC SCH (07:49)
[2023-01-22 07:54] VITALS: BP 178/78; PULSE 53; TEMP 98.1
[2023-01-22] MEDS: amLODIPine BESYLATE 5 MG TAB PO SCH (08:01)
[2023-01-22] MEDS: LANTUS PER UNIT CHARGE SQ SCH (08:53)
--- NOTE | 2023-01-22 18:17 | Discharge Summary ---
Date of Service January 22, 2023 Admission HPI Per Admitting Provider 82 yo M with PMH CKD3, DM2, rectal adenocarcinoma s/p radiation/chemotherapy/resection with ostomy, HTN, HLD, overactive bladder, chronic suprapubic catheter with monthly exchange since 2017 presenting with nausea/vomiting. Pt went to ER on 01/13 due to lower abdominal pain and concern for urinary retention/blockage of catheter. In ER, catheter was flushed. UA at time was suggestive of infection and pt was started on cefdinir 300 mg daily (adjusted for renal function from BID). UCx later grew proteus mirabilis. Pt discharged home and did well, did not have any further symptoms. He presented to urology office today for catheter replacement which went well. Shortly after departing, he had nausea with few episodes of NBNB emesis. He developed persistent hiccups and chest tightness and called urology office who advised him to go to ER for further evaluation. Pt arrived to ER hemodynamically stable. Initial evaluation significant for WBC 14.5, Cr 2.14, UA with LE, WBCs, hyaline + granular casts, epithelial cells. CTAP noting small pericardial effusion, severely enlarged prostate gland, RLQ ostomy with large parastomal hernia w/o obstruction, ventral wall hernia with small bowel loop. ER interventions include Zofran 4 mg IV. At present, pt denies abdominal pain. He is fatigued and thirsty but denies new complaints. Did have chills earlier in ER but no fever, denies any recent dysuria or urinary frequency. Principal Diagnosis Urinary tract infection associated suprapubic catheter present on admission Malfunctioning suprapubic catheter Decreased ostomy output at time of discharge Discharge Exam Patient awake and alert we discussed the fact that his ostomy and little output he feels comfortable with this and wants to go home 9 respectively that His abdomen was examined it was soft and was nontender there is no increased stool palpable or tenderness. Discharge Data Allergies Allergy/AdvReac Type Severity Reaction Status Date / Time atorvastatin [From Lipitor] Allergy Unknown Verified 01/20/23 11:17 Consultations 01/20/23 22:44 ED Decision to Admit Stat 01/21/23 01:26 Consult Urology Routine Ordered Studies 01/20/23 20:12 CT abd pelvis wo con Stat Hospital Course (1) Urinary tract infection: -WBC 14.5, not meeting SIRS criteria on admission -UA suggestive of infection along with leukocytosis and positive UCx with proteus mirabilis 1 week prior, in setting of chronic suprapubic catheter -Previous 01/12 UCx with pansensitive proteus mirabilis, cultures did not grow but the patient was on antibiotics prior to presentation Patient was discharged on Bactrim for additional 5 days Needed blood cultures at time of discharge (2) Acute kidney injury: -Cr 2.14 in setting of CKD3 may be new based (3) Suprapubic catheter: -Chronic suprapubic catheter since 2017 w/ monthly exchanges -Did have recent catheter obstruction in 01/12 ER visit -Urology consulted did change catheter will continue to change in the office monthly via nursing visit (4) DM (diabetes mellitus), type 2: -Resume home medications at time of discharge (5) Hyperlipidemia: -Continue statin (6) Hypertension: -Continue amlodipine (7) Anemia: -Hgb 13.3 on admission -No hematuria noted, hemodynamically stable- low suspicion for acute bleeding (8) Chronic kidney disease, stage III (moderate): -Baseline appears Cr 1.7-1.8 Patient's creatinine is creased into the near 2 range this may be his new baseline encouraged to increase p.o. intake at home and follow-up with his primary care physician (9) Rectal cancer: -S/p completed chemotherapy, radiation and resection w/ ostomy Patient's had some decreased ostomy output he does not wish to stay or have this evaluated or looked into I encouraged him to call me back if he has any problems as an outpatient Total Time Total Time Spent Total Time Spent (In Minutes): It required greater than 30 minutes to prepare this patient for discharge Discharge Plan Discharge Items Patient Disposition: Home - Self-Care Reason For Visit: UTI, [place] Discharge Diagnosis: suprapubic pubic catheter associated uti poa Activity: Resume your previous activity Non-emergency contact: Primary Care Provider and Urologist Call non-emergency contact if: your symptoms worsen Follow-up/Referrals: Bisi Rhodes [Primary Care Provider] - Diet: Regular Addtl Attending Provider Instructions: please complete antibiotic course and follow-up with urology for suprapubic catheter care Pending Studies at Discharge: No Stand-Alone Forms: Native, Smoking Cessation Medications and DC Order Prescriptions: New sulfamethoxazole-trimethoprim [Bactrim DS] 800-160 mg tablet 1 tab PO BID 5 Days Qty: 10 0RF Continued trospium 60 mg capsule,extended release 24hr 60 mg PO DAILYBB Rx Instructions: must be taken on empty stomach at least 1 hour before a meal/food with water only cholecalciferol (vitamin D3) [Vitamin D3] 25 mcg (1,000 unit) tablet 2,000 unit PO DAILY Qty: 180 0RF amlodipine 2.5 mg tablet 2.5 mg PO DAILY Qty: 90 3RF insulin glargine [Basaglar KwikPen U-100 Insulin] 100 unit/mL (3 mL) insulin pen 20 unit subcut QPM ferrous sulfate 325 mg (65 mg iron) Tablet 325 mg PO QAM rosuvastatin 10 mg tablet 10 mg PO HS cyanocobalamin (vitamin B-12) [Vitamin B-12] 1,000 mcg tablet 1,000 mcg PO DAILY Januvia 50 mg tablet 50 mg PO DAILY Discontinued cefdinir 300 mg capsule 300 mg PO DAILY Rx Instructions: take for 8 days ordered 01/14/23 Discharge Orders: Discharge Order (Routine); Ordered 01/22/23 Ordered By: Avelino Simon/Other Patient Handouts: UTIs Catheter Linked Admission Data Admit Date/Time: 01/20/23 23:23 Attending Provider: Avelino Llanos Admit Provider: Erik Boyd Primary Care Provider: Bisi Rhodes Other Providers: Tate Rivera ; Jan Holt ; Edwin Handley Christopher T. ; Halie Henry ; Ge Galloway ; Shelli Duong Melissa A. ; Romario Manuel ; Monica Espinosa ; Brigitte Daniels ; Avelino Flores ; Gilbert Resendiz Other Interventions: Discharge Summary Assessment (RN) Last Done: 01/22/23 09:30 Coding Level of Care Code 97275 INP/OBS DISCH >30 MIN Diagnoses Urinary tract infection N39.0 Acute kidney injury N17.9 Suprapubic catheter Z93.59 DM (diabetes mellitus), type 2 E11.9 Hyperlipidemia E78.5 Hypertension I10 Anemia D64.9 Chronic kidney disease, stage III (moderate) N18.3 Rectal cancer C20
--- NOTE | 2023-01-24 15:50 | Electrocardiogram Report ---
Test Reason : Blood Pressure : / mmHG Vent. Rate : 090 BPM Atrial Rate : 090 BPM P-R Int : 226 ms QRS Dur : 090 ms QT Int : 362 ms P-R-T Axes : 000 -01 080 degrees QTc Int : 442 ms Sinus rhythm with 1st degree A-V block with Premature supraventricular complexes and with frequent Pr emature ventricular complexes Fusion complexes Abnormal ECG When compared with ECG of 01-MAR-2020 20:05, SD interval has increased Premature ventricular complexes are now Present QT has lengthened Confirmed by Jasbir Clifford ([id number]) on 01/24/2023 3:50:22 PM Referred By: REFERRED SELF Confirmed By:Jasbir Clifford
== END 2023-01-22 11:34 | disposition home or self-care (01) | DRG 699 ==
LOC: ED 18:02 → SUATTDRO 23:23 → 3E 23:23

== ENCOUNTER 2023-09-27 13:39 | Inpatient (IN) ==
--- NOTE | 2023-09-27 14:17 | Emergency Department Note ---
ED Visit Note I was consulted by the Advanced Practice Provider, Tony Santos PA-C. I personally made/approved the management plan and take responsibility for the patient management. I performed a substantive portion of the visit. This includes the aspects of: -History/Physical/Personally seeing the patient -MDM .
--- NOTE | 2023-09-27 14:45 | XRay Report ---
XR chest 1V portable CLINICAL HISTORY: fall 11 days ago, upper R rib pain TECHNIQUE: Single frontal radiograph of the chest was obtained. Comparison: Comparison is made to chest radiograph 03/01/2020 FINDINGS: No lines and tubes are seen. Cardiomegaly is noted. Prominence and cephalization of the vasculature i s seen. No evidence of pleural effusion or pneumothorax. Old healed right rib fractures are seen. IMPRESSION: Cardiomegaly and mild pulmonary edema. ACT 112: Negative or not required by law. Electronically signed by: Hector Weinstein M.D. 09/27/2023 2:44 PM
[2023-09-27 15:08] LABS: Basophils # (auto) 0.04 K/uL (0.00-0.20); Basophils % (auto) 0.6 %; Eosinophils # (auto) 0.13 K/uL (0.00-0.50); Eosinophils % (auto) 1.9 %; Hemoglobin 11.9 g/dl (14.0-18.0); Immature Granulocytes # (auto) 0.02 K/uL (0.01-0.20); Immature Granulocytes % (auto) 0.3 %; Lymphocytes # (auto) 0.69 K/uL (1.20-3.40); Lymphocytes % (auto) 9.9 %; Mean Corpuscular Hgb Conc 31.3 g/dL (32.0-36.0); Mean Corpuscular Volume 86.4 fL (80.0-100.0); Mean Platelet Volume 9.8 fL (9.4-12.4); Monocytes # (auto) 0.42 K/uL (0.11-0.59); Neutrophils % (auto) 81.3 %; Platelet Count 261 K/uL (130-400); RDW Coefficient of Variation 15.8 % (11.5-14.5); RDW Standard Deviation 50.4 fL (36.4-46.3)
[2023-09-27 15:16] LABS: Partial Thromboplastin Ratio 1.1; Partial Thromboplastin Time 29 Seconds (21-31); Prothrombin Time 11.1 Seconds (9.0-12.0)
--- NOTE | 2023-09-27 15:17 | Ultrasound Report ---
US venous doppler LE RT CLINICAL HISTORY: R leg edema TECHNIQUE: Right lower extremity real-time compression venous ultrasound with Color Doppler imaging. Utilizing real-time ultrasonic imaging multiple real time high-resolution ultrasonic images with comp ression and noncompression maneuvers of the deep venous system in addition to color doppler imaging w ere performed from the common femoral vein through the proximal calf veins. COMPARISON: Comparison is made to ultrasound 02/10/2021 FINDINGS/IMPRESSION: Currently there is normal compressibility of the deep venous system from the common femoral vein thro ugh the proximal calf veins. Soft tissue edema is noted in the calf. ACT 112: Negative or not required by law. Electronically signed by: Hector Weinstein M.D. 09/27/2023 3:15 PM
[2023-09-27 15:38] LABS: Albumin Level 3.8 gm/dl (3.4-5.0); Bilirubin,Total 0.4 mg/dl (0.2-1.0); Calcium 9.3 mg/dl (8.6-10.3); Creatinine Clr Calc Pharmacy 24.9 ml/min; Est GFR (African American) 26.9 ml/min; Est GFR (Non-African American) 23.2 ml/min; Globulin 3.7 gm/dl (2.5-4.0); Potassium 4.2 mmol/L (3.5-5.1); Total Protein 7.5 gm/dl (6.0-8.3)
[2023-09-27 16:48] LABS: Troponin I High Sensitivity 27.6 pg/ml (0-20)
[2023-09-27 17:32] LABS: Troponin I High Sensitivity 26.2 pg/ml (0-20)
--- NOTE | 2023-09-27 17:34 | Emergency Department Note ---
History of Present Illness General Chief complaint: Leg Injury/Pain Stated complaint: LEG SWELLING, BRUISING ON HANDS Time Seen by Provider: 09/27/23 13:59 History of Present Illness This is an 83-year-old male that presents to the emergency department via private vehicle with complaints of "leg swelling on the right, fall". The patient states that on September 15 which was a Tuesday he notes that he was hiking. He was using 2 walking sticks and believes that he tripped and fell forward. He was unable to get up on his own therefore laid on the ground for almost 6 hours until individuals were able to find him and help him up off of the ground. He notes that he struggled for that period of time trying to get off of the ground. The patient notes that when he fell he quickly thereafter began some with pain in the anterior lower chest/rib area and thought perhaps it was from the fall or straining trying to stand when he fell. However he notes that for several days the soreness was quite mild but has progressed more so involving the right leg now. He notes progressive right lower extremity edema and some mild left lower extremity edema. This is new for him. He notes that his legs are not normally the swollen at baseline. He notes some mild discomfort of the right leg but no true pain. No headache. No face or neck pain. He denies any back pain. He denies any central chest pain. No dyspnea. He denies any anticoagulant use. Home Medications Medication Instructions Recorded Confirmed Type ferrous sulfate 325 mg (65 mg 325 mg PO QAM 02/24/18 09/27/23 History iron) tablet rosuvastatin 10 mg tablet 10 mg PO HS 02/24/18 09/27/23 History cyanocobalamin (vitamin B-12) 1,000 mcg PO DAILY 12/19/19 09/27/23 History 1,000 mcg tablet (Vitamin B-12) cholecalciferol (vitamin D3) 25 2,000 unit PO DAILY #180 tabs 04/25/20 09/27/23 Rx mcg (1,000 unit) tablet (Vitamin D3) amlodipine 2.5 mg tablet 2.5 mg PO DAILY #90 tabs 09/25/21 09/27/23 Rx mupirocin 2 % topical ointment 1 applic topical TID 04/18/23 09/27/23 History trospium 60 mg capsule,extended 60 mg PO DAILYBB 04/18/23 09/27/23 History release 24 hr Tylenol See Rx Instructions .Route 09/27/23 09/27/23 History .COMPLEX PRN Pain insulin glargine 100 unit/mL (3 20 unit subcut PM 09/27/23 09/27/23 History mL) subcutaneous pen (Basaglar KwikPen U-100 Insulin) sitagliptin phosphate 50 mg tablet 50 mg PO DAILY 09/27/23 09/27/23 History (Januvia) Allergies Allergy/AdvReac Type Severity Reaction Status Date / Time atorvastatin [From Lipitor] Allergy Unknown Verified 09/15/23 14:16 Past Med/Surg History Medical History (Updated 09/27/23 @ 23:43 by Tony Santos PA-C) Jewell UTI DM (diabetes mellitus), type 2 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 Anemia Vitamin D deficiency Diabetes Chronic kidney disease, stage III (moderate) Syncope and collapse Rectal cancer (06/17/17) "Rectal bleeding Status post colonoscopy and biopsy 06/17/2017 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 Plan for combined radiation and chemotherapy followed by possible resection Status post completion of combined radiation and chemotherapy August 30, 2017." On 07/07/17 13:09 Felicia Hannon wrote "Rectal bleeding Status post colonoscopy and biopsy 06/17/2017 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 Plan for combined radiation and chemotherapy followed by possible resection" Pre-syncope Obstructive uropathy Diarrhea Surgical History Previous back surgery Family History Other Family history non-contributory Social History Smoking Status: Never smoker Hx Alcohol Use: No Hx Substance Use: No Preferred Language: Icelandic Communication Ability: Effective Visual Impairment: No Limitations 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: Normal Textile Conservator Required: No Beliefs That Will Affect Care: None marital status: / Current Living Situation: Alone Current Living Situation Comment: home current occupational status: retired Feels Safe at Home: Yes Assistive Devices: Cane, Glasses and Walker Review of Systems A total of 10 systems reviewed and were otherwise negative Physical Exam Vital Signs Vital Signs - 24 hr 09/27/23 13:40 09/27/23 13:47 09/27/23 17:22 Temperature 36.6 C Temperature Source Temporal Artery Scan Pulse Rate 69 72 Pulse Rate [Right Finger] Pulse Rhythm Regular Pulse Rhythm [Right Finger] Pulse Strength Normal Pulse Strength [Right Finger] Respiratory Rate 18 Respiratory Effort / Characteristics Non-Labored Non-Labored Spontaneous Respiratory Depth Normal Normal Respiratory Pattern Regular Regular Blood Pressure 160/80 H Blood Pressure Mean 106 Blood Pressure Position Sitting Pulse Oximetry 98 Oxygen Delivery Method Room Air Room Air Sepsis Recent Fever Within 48 Hours No Sepsis New/Unexplained Change in Mental Status No Sepsis Action Taken by Nursing No Action Required 09/27/23 17:42 Temperature Temperature Source Pulse Rate Pulse Rate [Right Finger] 80 Pulse Rhythm Pulse Rhythm [Right Finger] Regular Pulse Strength Pulse Strength [Right Finger] Normal Respiratory Rate Respiratory Effort / Characteristics Respiratory Depth Respiratory Pattern Blood Pressure Blood Pressure Mean Blood Pressure Position Pulse Oximetry Oxygen Delivery Method Sepsis Recent Fever Within 48 Hours Sepsis New/Unexplained Change in Mental Status Sepsis Action Taken by Nursing VITAL SIGNS - Vital signs and nursing notes were reviewed. Stable and afebrile. GENERAL -83-year-old male appearing his stated age who is in no acute distress. Communicates well with provider and answers questions appropriately. SKIN - Without rashes. No meningeal or petechial rash. Healing wound to the dorsal aspect of the right hand between the first and second MCP joint. No sign of secondary infection. The right lower extremity is edematous with mild edema to the left lower extremity. There are some healing wounds noted with scabbed areas to the left and right lower extremity. HEAD - Normocephalic, Atraumatic. No Montelongo's Sign or Raccoon's Eyes. EYES - PERRL with EOMI bilaterally. Without subconjunctival hemorrhage. Palpebral conjunctiva pink and moist with no injection. No hyphema. EARS - No deformities of external structures noted on gross examination bilaterally. No blood from the ear canals. NOSE - Midline and without cyanosis. No epistaxis or clear watery discharge noted. Septum midline without deviation. No septal hematoma noted. No overlying ecchymosis noted. MOUTH/OROPHARYNX - Without perioral cyanosis. NECK -no tenderness to palpation over the cervical spinous processes. No cervical paraspinal muscle tenderness noted. LUNGS - Chest wall symmetric without accessory muscle use, intercostals retractions, or central cyanosis. No flail chest or depressed fractures noted. Minimal tenderness to the left anterior and right anterior ribs. No central chest tenderness. Normal vesicular breath sounds CTA B/L. No wheezes, rales, or rhonchi appreciated. CARDIAC - RRR with S1/S2. No murmur, rubs, or gallops appreciated. ABDOMEN -large right-sided abdominal hernia noted with colostomy bag overlying this area. Patient notes this is not new. Abdomen is nontender. No guarding or rigidity. EXTREMITIES - No gross deformities noted of the extremities. Patient is able to fully make a fist with bilateral hands and open without issue. Healing wound to the right hand noted. No bony tenderness. +5/5 strength noted in UE/LE bilaterally. NEUROLOGIC - Cranial nerves II through XII grossly intact. PSYCH -alert, oriented and pleasant on exam. Course Administered Medications Discontinued Medications Furosemide (Furosemide 40 Mg/4 Ml Vial) 40 mg IV ONE STA Stop: 09/27/23 17:42 Last Admin: 09/27/23 18:12 Dose: 40 mg Documented By: NICOLAS Medical Decision Making Laboratory Data 09/27/23 14:40 09/27/23 14:40 Lab Results 09/27/23 09/27/23 Range/Units 14:40 16:35 WBC 7.00 (4.8-10.8) K/ul RBC 4.40 L (4.70-6.10) M/uL Hgb 11.9 L (14.0-18.0) g/dl Hct 38.0 L (42.0-52.0) % MCV 86.4 (80.0-100.0) fL MCH 27.0 (25.0-34.0) pg MCHC 31.3 L (32.0-36.0) g/dL RDW Std Deviation 50.4 H (36.4-46.3) fL RDW Coeff of Timoteo 15.8 H (11.5-14.5) % Plt Count 261 (130-400) K/uL MPV 9.8 (9.4-12.4) fL Immature Gran % (Auto) 0.3 % Neut % (Auto) 81.3 % Lymph % (Auto) 9.9 % Brantley % (Auto) 6.0 % Eos % (Auto) 1.9 % Baso % (Auto) 0.6 % Neut # (Auto) 5.70 (1.40-6.50) K/uL Lymph # (Auto) 0.69 L (1.20-3.40) K/uL Brantley # (Auto) 0.42 (0.11-0.59) K/uL Eos # (Auto) 0.13 (0.00-0.50) K/uL Baso # (Auto) 0.04 (0.00-0.20) K/uL Immature Gran # (Auto) 0.02 (0.01-0.20) K/uL PT 11.1 (9.0-12.0) Seconds INR 1.0 (0.9-1.1) APTT 29 (21-31) Seconds PTT Ratio 1.1 Sodium 139 (136-145) mmol/L Potassium 4.2 (3.5-5.1) mmol/L Chloride 108 H (98-107) mmol/L Carbon Dioxide 23 (21-32) mmol/L Anion Gap 8 (3-11) BUN 47 H (6-23) mg/dl Creatinine 2.47 H (0.6-1.4) mg/dl Est Cr Clr Drug Dosing 24.9 ml/min Est GFR ( Amer) 26.9 ml/min Est GFR (Non-Af Amer) 23.2 ml/min BUN/Creatinine Ratio 19.0 (10-20) Glucose 135 H (70-99(Fasting)) mg/dl Calcium 9.3 (8.6-10.3) mg/dl Magnesium 1.9 (1.7-2.4) mg/dl Total Bilirubin 0.4 (0.2-1.0) mg/dl AST 13 (13-39) U/L ALT 10 (7-52) U/L Alkaline Phosphatase 115 H (34-104) U/L Total Creatine Kinase 51 (30-223) U/L Troponin I High Sens 27.6 H 26.2 H (0-20) pg/ml Total Protein 7.5 (6.0-8.3) gm/dl Albumin 3.8 (3.4-5.0) gm/dl Globulin 3.7 (2.5-4.0) gm/dl Albumin/Globulin Ratio 1.0 (0.9-2) TSH 1.483 (0.300-4.500) uIu/ml Imaging Data Radiologist's Impression: Venous Doppler Study 09/27/23 14:14 US venous doppler LE RT CLINICAL HISTORY: R leg edema TECHNIQUE: Right lower extremity real-time compression venous ultrasound with Color Doppler imaging. Utilizing real-time ultrasonic imaging multiple real time high-resolution ultrasonic images with compression and noncompression maneuvers of the deep venous system in addition to color doppler imaging were performed from the common femoral vein through the proximal calf veins. COMPARISON: Comparison is made to ultrasound 02/10/2021 FINDINGS/IMPRESSION: Currently there is normal compressibility of the deep venous system from the common femoral vein through the proximal calf veins. Soft tissue edema is noted in the calf. ACT 112: Negative or not required by law. Electronically signed by: Hector Weinstein M.D. 09/27/2023 3:15 PM Chest X-Ray 09/27/23 14:19 XR chest 1V portable CLINICAL HISTORY: fall 11 days ago, upper R rib pain TECHNIQUE: Single frontal radiograph of the chest was obtained. Comparison: Comparison is made to chest radiograph 03/01/2020 FINDINGS: No lines and tubes are seen. Cardiomegaly is noted. Prominence and cephalization of the vasculature is seen. No evidence of pleural effusion or pneumothorax. Old healed right rib fractures are seen. IMPRESSION: Cardiomegaly and mild pulmonary edema. ACT 112: Negative or not required by law. Electronically signed by: Hector Weinstein M.D. 09/27/2023 2:[address] 09/27/23 17:28 CT OF THE HEAD WITHOUT CONTRAST CLINICAL HISTORY: head trauma COMPARISON STUDY: Head CT March 01, 2020. TECHNIQUE: Helical axial images of the head were obtained without IV contrast. Automated exposure control was utilized for the study. A dose lowering technique was utilized adhering to the principles of ALARA. FINDINGS: No acute intracranial hemorrhage, midline shift or mass effect is present. The ventricular system is unremarkable. The basal cisterns are patent. No extra-axial collections are present. There are no findings to suggest acute dural sinus thrombosis or acute territorial infarct. There are no calvarial fractures. There are age indeterminate mildly displaced bilateral nasal bone fractures. IMPRESSION: 1. No acute intracranial findings. 2. No calvarial fractures. 3. Age indeterminate mildly displaced bilateral nasal bone fractures. ACT 112: Negative or not required by law. Electronically signed by: Rupesh Martell M.D. 09/27/2023 6:[address] 09/27/23 17:31 CT OF THE CERVICAL SPINE WITHOUT CONTRAST CLINICAL HISTORY: fall 10 days ago, neck pain COMPARISON STUDY: Cervical spine CT August 17, 2017. TECHNIQUE: Helical axial images of the cervical spine were obtained without IV contrast. Sagittal and coronal reconstructions were viewed. Automated exposure control was utilized for the study. A dose lowering technique was utilized adhering to the principles of ALARA. FINDINGS: Alignment of the cervical spine is anatomic. Vertebral body heights are maintained. No acute cervical spine fracture or subluxation is present. There is no prevertebral edema. Facet joints are intact. Fusion of C3 on C4 is again noted. Moderate multilevel degenerative disc disease and facet arthrosis is present. IMPRESSION: No acute cervical spine fracture or subluxation. ACT 112: Negative or not required by law. Electronically signed by: Rupesh Martell M.D. 09/27/2023 6:15 PM Abdomen/Pelvis CT 09/27/23 17:32 CT OF THE ABDOMEN AND PELVIS WITHOUT CONTRAST CLINICAL HISTORY: fall 10 days ago, ongoing abdominal pain COMPARISON STUDY: CT of the abdomen and pelvis January 24, 2023. MRI of the abdomen and pelvis August 02, 2023. TECHNIQUE: Axial images of the abdomen and pelvis were obtained without IV contrast. Images were reviewed in the axial, sagittal, and coronal planes. Automated exposure control was utilized for the study. A dose lowering technique was utilized adhering to the principles of ALARA. FINDINGS: Please note that the chest CT will be reported separately. No hemoperitoneum or pneumoperitoneum is present. Cardiomegaly and moderate pericardial effusion are unchanged. Evaluation of the solid abdominal viscera is suboptimal on this unenhanced exam. Liver, spleen, adrenal glands, kidneys and pancreas are similar in appearance to prior CT. Urothelial thickening of the bilateral renal pelves and proximal ureters remains unchanged. Prostate is markedly enlarged, unchanged. A suprapubic catheter is in place. Status post rectal resection. Irregular presacral density remains unchanged. This favors postsurgical change. No pathologically enlarged abdominal or pelvic lymph nodes are present. A small amount of fluid within the pelvis is present. There is no fluid collection. 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 Several loops of mildly dilated small bowel are present within the hernia sac. No acute fractures within the lumbar spine, pelvis or hips are identified. IMPRESSION: 1. No acute traumatic findings within the abdomen or pelvis on unenhanced exam. 2. 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 Several loops of mildly dilated small bowel. A partial small bowel obstruction would be difficult to exclude. 3. No change in urothelial thickening of the bilateral renal pelves and proximal ureters. Prostatomegaly, unchanged. No hydronephrosis. ACT 112: Negative or not required by law. Electronically signed by: Rupesh Martell M.D. 09/27/2023 6:[address] 09/27/23 17:32 CT OF THE CHEST WITHOUT IV CONTRAST CLINICAL HISTORY: anterior chest wall pain, trauma. Fall 10 days ago. COMPARISON STUDY: Chest CT July 20, 2023. Chest radiograph performed earlier today. TECHNIQUE: Axial images of the chest were obtained without IV contrast. Images were reviewed in the axial, sagittal, and coronal planes. IV contrast was not administered for this examination. Automated exposure control was utilized for the study. A dose lowering technique was utilized adhering to the principles of ALARA. FINDINGS: Thoracic aorta is suboptimally assessed on this unenhanced exam but there is no mediastinal hematoma. Cardiomegaly and moderate sized pericardial effusion are unchanged since CT of 07/20/2023. There is a trace right pleural effusion. There is no pneumothorax. Several nodular opacities within the lower lobes are noted, the largest of which is a 9 mm left lower lobe nodule on image 111 of 253. This is new since CT of July 20, 2023. There are also groundglass opacities within the lower lobes. Multiple old bilateral rib fractures are present. There are probable subacute fractures of the anterior right fourth through seventh ribs and the anterior left fifth and sixth ribs. No thoracic spine fractures are present. There is extensive anterior osteophytosis of the thoracic spine. Abdomen and pelvis CT will be reported separately. IMPRESSION: 1. No pneumothorax. Subacute appearing fractures of the anterior right fourth through seventh ribs and the anterior left fifth and sixth ribs. Numerous old bilateral rib fractures. 2. Trace right pleural effusion. 3. Cardiomegaly and a moderate pericardial effusion, unchanged since CT of July 20, 2023. 4. Several nodular opacities within the lower lobes and groundglass opacities, new since prior chest CT. These favor a mild infectious process although are indeterminate. A follow-up chest CT in 3 months to ensure resolution is recommended. ACT 112: Negative or not required by law. Electronically signed by: Rupesh Martell M.D. 09/27/2023 6:25 PM MDM Narrative Patient was seen and evaluated as above in room D04. Review was performed of triage nursing notes and vital signs. I did review pertinent previous visits and patient history. After obtaining a thorough history and physical examination the above work up was performed. Patient presents to us today status post what appears to be a mechanical fall about 10 days ago. He is well-appearing and nontoxic on examination. He is hypertensive but otherwise has stable vital signs. No anticoagulant use. He does have some minimal discomfort in the anterior ribs. No hemoptysis. No trouble breathing. No abdominal pain. He is here today for evaluation of right lower extremity edema and was referred in today by PCP. There is concern there may be a blood clot in the right leg noting the edema. Options of care were discussed with the patient. IV access was established. Labs were drawn. There is no leukocytosis. Minor anemia noted with hemoglobin of 11.9. There is no emergent metabolic disturbance. There is stable CKD creatinine 2.47 and BUN 47. Alk phos elevated at 115. CPK within normal range making rhabdomyolysis less likely. Chest x-ray was obtained and revealed cardiomegaly and likely pulmonary edema. This is new compared to previous chest x-ray. Patient is breathing well at this time. There is no pneumothorax seen. Reassuringly the patient has done well over the past 10 days since his fall. It is the right leg swelling that brought him here today. The right leg is edematous more so than the left. No bony tenderness. This is diffuse circumferential edema. A Doppler study of the right lower extremity was obtained. There is no DVT seen. With the right lower extremity edema and also some left lower extremity edema which is new in the setting of what appears to be some pulmonary edema in the anterior rib discomfort I did add on a troponin as well as EKG. Troponin returned mildly elevated and EKG was performed. Initial EKG performed at 1631 revealed atrial fibrillation at a rate of 72 bpm however there was poor baseline therefore there was concern that the poor baseline therefore did obtain a second EKG to confirm new onset atrial fibrillation. EKG performed at 1657 also with mildly poor baseline but with concern for atrial fibrillation at a rate of 70 bpm. At this time I do believe that further evaluation and management the inpatient setting is warranted. Case discussed with the hospitalist service. Please refer to further documentation regarding his stay. Case discussed with the attending physician. GCS: 15 In the evaluation and treatment of this patient the following differential diagnoses were entertained: Rib fracture, pneumothorax, hemothorax, CHF, DVT, cellulitis, rhabdomyolysis, among others. Impression & Plan New onset atrial fibrillation, Fall, Rib pain, Edema of right lower extremity, Cardiomegaly Discharge Plan Visit Data Chief Complaint: Leg Injury/Pain Stated Complaint: LEG SWELLING, BRUISING ON HANDS ED Provider: Lloyd Hale ED Midlevel Provider: Tony Santos Discharge Problem: New onset atrial fibrillation, Fall, Rib pain, Edema of right lower extremity, Cardiomegaly Patient Disposition: Admitted As Inpatient Condition: Good Discharge Instructions Interventions: ED Discharge Assessment Last Done: 09/27/23 20:45
--- NOTE | 2023-09-27 17:45 | History & Physical Report ---
Date of Service September 27, 2023 Assessment & Plan (1) New onset atrial fibrillation: Plan: Unclear onset, found incidentally in the emergency room and patient is asymptomatic with this Rate controlled without AV norma blocking agents Following trauma CTs (head, c-spine, CAP) if no concern for internal bleeding will start on apixaban 2.5 mg PO BID (reduced dose due to Cr and age) TSH 1.483 TTE ordered (2) New onset of congestive heart failure: Plan: Unknown ejection fraction - TTE ordered (cardiac silhouette concerningly much larger on CXR today) Bilateral pitting edema (R > L without DVT present), pulmonary edema Possibility related to new onset atrial fibrillation as above UA + protein/Cr ratio to assess for renal involvement in hypervolemic state - pending Given his volume is mostly in his legs possibly this is mostly venous stasis following lack of movement from recent fall which would fit if Cr significantly rising with diuresis Lasix 40mg IV daily Strict I&Os - aim net negative 1.5-2L daily Daily weights (3) Edema of right lower extremity: Plan: No DVT on US Does not appear infected on admission - continue to reassess (4) Fall: Plan: [address] head, c-spine, chest, abdomen, pelvis to rule out internal bleeding prior to starting anticoagulation PT/OT (5) DM (diabetes mellitus), type 2: Plan: Hemoglobin A1c 7.9 in July On 20 units Lantus QPM and Sitagliptin home medications Previous admission glucose was well-controlled on Lantus 5 units BID therefore continue on this NovoLog: --Goal BSG Range: Low 110 mg/dL, High 140 mg/dL --Correction Factor: 45 mg/dL/unit --Carbohydrate ratio = 15 g/unit --BSGs ACHS if eating, q6h if npo (6) Suprapubic catheter: Plan: Chronic If UA concerning for infection, no definitive need to treat this unless having symptoms (UA ordered mainly to check for proteinuria) (7) Hypertension: Plan VTE Prophylaxis - apixaban Diet - type 2 diabetes, heart healthy, low-sodium Disposition - admit to [facility] Admission and Anticipated Discharge Date Admission Date: September 27, 2023 History of Present Illness Chief Complaint: Right leg swelling Primary Care Provider: Bisi Rhodes Gian Bhakta is an 83 year old male who presents to the ER for right leg swelling following a fall 10 days ago. He reports falling while hiking 10 days ago and spending almost 6 hours on the ground until someone found him and were able to help him off the ground. He denies any dizziness, lightheadedness of chest pain prior to the fall and feels he tripped while using his two walking sticks and fell forward hitting his head but no loss of consciousness. He has been having chest pain since the fall but that is worse on palpation. His main concern is the swelling which is actually in both legs but worse on the right side which has progressively got worse since the fall. He denies any new weakness since the fall, no headache, other pains other than over his lower right anterior chest. Allergies Allergy/AdvReac Type Severity Reaction Status Date / Time atorvastatin [From Lipitor] Allergy Unknown Verified 09/15/23 14:16 Home Medications Medication Instructions Recorded Confirmed Type ferrous sulfate 325 mg (65 mg 325 mg PO QAM 02/24/18 09/27/23 History iron) tablet rosuvastatin 10 mg tablet 10 mg PO HS 02/24/18 09/27/23 History cyanocobalamin (vitamin B-12) 1,000 mcg PO DAILY 12/19/19 09/27/23 History 1,000 mcg tablet (Vitamin B-12) cholecalciferol (vitamin D3) 25 2,000 unit PO DAILY #180 tabs 04/25/20 09/27/23 Rx mcg (1,000 unit) tablet (Vitamin D3) amlodipine 2.5 mg tablet 2.5 mg PO DAILY #90 tabs 09/25/21 09/27/23 Rx mupirocin 2 % topical ointment 1 applic topical TID 04/18/23 09/27/23 History trospium 60 mg capsule,extended 60 mg PO DAILYBB 04/18/23 09/27/23 History release 24 hr Tylenol See Rx Instructions .Route 09/27/23 09/27/23 History .COMPLEX PRN Pain insulin glargine 100 unit/mL (3 20 unit subcut PM 09/27/23 09/27/23 History mL) subcutaneous pen (Basaglar KwikPen U-100 Insulin) sitagliptin phosphate 50 mg tablet 50 mg PO DAILY 09/27/23 09/27/23 History (Esmer) Past Med/Surg History Medical History (Updated 09/27/23 @ 23:43 by Tony Santos PA-C) Jewell UTI DM (diabetes mellitus), type 2 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 Anemia Vitamin D deficiency Diabetes Chronic kidney disease, stage III (moderate) Syncope and collapse Rectal cancer (06/17/17) "Rectal bleeding Status post colonoscopy and biopsy 06/17/2017 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 Plan for combined radiation and chemotherapy followed by possible resection Status post completion of combined radiation and chemotherapy August 30, 2017." On 07/07/17 13:09 Felicia Serrano Hannon wrote "Rectal bleeding Status post colonoscopy and biopsy 06/17/2017 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 Plan for combined radiation and chemotherapy followed by possible resection" Pre-syncope Obstructive uropathy Diarrhea Surgical History Previous back surgery Family History Other Family history non-contributory Social History Smoking Status: Never smoker Hx Alcohol Use: No Hx Substance Use: No Preferred Language: Czech Communication Ability: Effective Visual Impairment: No Limitations 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: Normal 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 Beliefs That Will Affect Care: None marital status: / Current Living Situation: Alone Current Living Situation Comment: home current occupational status: retired Other Information That Helps Us Care for You: No Feels Safe at Home: Yes Safety Concerns: Feels Safe At This Time Assistive Devices: None Review of Systems Review of Systems: All systems reviewed & are unremarkable except as noted in HPI & below Physical Exam Constitutional: WD/WN, vitals as above Eyes: PERRL, conjunctivae normal, anicteric sclerae ENMT: external ear and nose normal, oropharynx normal Neck: trachea midline, no thyromegaly Respiratory: normal respiratory effort, lungs clear to auscultation Cardiovascular: Rate/Rhythm: regular rate and + irregularly irregular Heart Sounds: no murmur Vessels: no JVD Extremities: + pedal edema (3+ right, 2+ left) Chest (Breasts): Chest: + abnormal inspection of chest (right lower anterior reproducible pain) Gastrointestinal (Abdomen): normal bowel sounds, soft, nontender, no hepatosplenomegaly Musculoskeletal: no cyanosis or clubbing, extremities motor strength 5/5 Skin: no rashes, warm and dry Neurologic: moves all extremities and awake; not confused Psychiatric: A+Ox3, euthymic affect Genitourinary: no CVA tenderness Results & Data Results & Data Vital Signs (Past 12 Hours) Vital Signs Temp Pulse Pulse Resp BP Pulse Ox O2 Del Method 09/27/23 17:43 104 H 09/27/23 17:42 80 09/27/23 17:22 72 09/27/23 13:47 36.6 C 69 18 160/80 H 98 Room Air 09/27/23 13:40 Room Air Laboratory Results Abnormal lab results 09/27/23 09/27/23 09/27/23 Range/Units 14:40 16:35 22:43 RBC 4.40 L (4.70-6.10) M/uL Hgb 11.9 L (14.0-18.0) g/dl Hct 38.0 L (42.0-52.0) % MCHC 31.3 L (32.0-36.0) g/dL RDW Std Deviation 50.4 H (36.4-46.3) fL RDW Coeff of Timoteo 15.8 H (11.5-14.5) % Lymph # (Auto) 0.69 L (1.20-3.40) K/uL Chloride 108 H (98-107) mmol/L BUN 47 H (6-23) mg/dl Creatinine 2.47 H (0.6-1.4) mg/dl Glucose 135 H (70-99(Fasting)) mg/dl POC Glucose 115 H (70-99) mg/dl Alkaline Phosphatase 115 H (34-104) U/L Troponin I High Sens 27.6 H 26.2 H (0-20) pg/ml Diagnostic Findings XR chest 1V portable CLINICAL HISTORY: fall 11 days ago, upper R rib pain TECHNIQUE: Single frontal radiograph of the chest was obtained. Comparison: Comparison is made to chest radiograph 03/01/2020 FINDINGS: No lines and tubes are seen. Cardiomegaly is noted. Prominence and cephalization of the vasculature is seen. No evidence of pleural effusion or pneumothorax. Old healed right rib fractures are seen. IMPRESSION: Cardiomegaly and mild pulmonary edema. US venous doppler LE RT CLINICAL HISTORY: R leg edema TECHNIQUE: Right lower extremity real-time compression venous ultrasound with Color Doppler imaging. Utilizing real-time ultrasonic imaging multiple real time high-resolution ultrasonic images with compression and noncompression maneuvers of the deep venous system in addition to color doppler imaging were performed from the common femoral vein through the proximal calf veins. COMPARISON: Comparison is made to ultrasound 02/10/2021 FINDINGS/IMPRESSION: Currently there is normal compressibility of the deep venous system from the common femoral vein through the proximal calf veins. Soft tissue edema is noted in the calf. Medications Administered ER Medications Given: None ECG Rate (beats per minute): 7072 Rhythm: atrial fibrillation Findings: + T-wave inversion (Lateral) Comparison ECG Date: from (January 20, 2023) Change: the following changes noted (Atrial fibrillation and TWI are new) Code Status & VTE Plan Code Status DNR/DNI per patient wishes VTE Prophylaxis Plan VTE Prophylaxis will be ordered: Yes PG Care Time/CCT Total # of Minutes Spent Total Time Spent with Patient: Total time spent is greater than 50% in coordination of care (as documented) at patient's floor/unit and/or counseling patient: Coding Level of Care Code 30022 INT INP/OBS CARE 3/75MIN Diagnoses New onset atrial fibrillation I48.91 New onset of congestive heart failure I50.9 Edema of right lower extremity R60.0 Fall W19.XXXA DM (diabetes mellitus), type 2 E11.9 Suprapubic catheter Z93.59 Hypertension I10
[2023-09-27] MEDS: FUROSEMIDE 40 MG/4 ML VIAL IV STA (18:12)
--- NOTE | 2023-09-27 18:14 | CT Scan Report ---
CT OF THE HEAD WITHOUT CONTRAST CLINICAL HISTORY: head trauma COMPARISON STUDY: Head CT March 01, 2020. TECHNIQUE: Helical axial images of the head were obtained without IV contrast. Automated exposure con trol was utilized for the study. A dose lowering technique was utilized adhering to the principles o f ALARA. FINDINGS: No acute intracranial hemorrhage, midline shift or mass effect is present. The ventricular system is unremarkable. The basal cisterns are patent. No extra-axial collections are present. There are no findings to suggest acute dural sinus thrombosis or acute territorial infarct. There are no ca lvarial fractures. There are age indeterminate mildly displaced bilateral nasal bone fractures. IMPRESSION: 1. No acute intracranial findings. 2. No calvarial fractures. 3. Age indeterminate mildly displaced bilateral nasal bone fractures. ACT 112: Negative or not required by law. Electronically signed by: Rupesh Martell M.D. 09/27/2023 6:12 PM
--- NOTE | 2023-09-27 18:18 | CT Scan Report ---
CT OF THE CERVICAL SPINE WITHOUT CONTRAST CLINICAL HISTORY: fall 10 days ago, neck pain COMPARISON STUDY: Cervical spine CT August 17, 2017. TECHNIQUE: Helical axial images of the cervical spine were obtained without IV contrast. Sagittal a nd coronal reconstructions were viewed. Automated exposure control was utilized for the study. A do se lowering technique was utilized adhering to the principles of ALARA. FINDINGS: Alignment of the cervical spine is anatomic. Vertebral body heights are maintained. No acut e cervical spine fracture or subluxation is present. There is no prevertebral edema. Facet joints are intact. Fusion of C3 on C4 is again noted. Moderate multilevel degenerative disc disease and facet arthrosis is present. IMPRESSION: No acute cervical spine fracture or subluxation. ACT 112: Negative or not required by law. Electronically signed by: Rupesh Martell M.D. 09/27/2023 6:15 PM
--- NOTE | 2023-09-27 18:27 | CT Scan Report ---
CT OF THE CHEST WITHOUT IV CONTRAST CLINICAL HISTORY: anterior chest wall pain, trauma. Fall 10 days ago. COMPARISON STUDY: Chest CT July 20, 2023. Chest radiograph performed earlier today. TECHNIQUE: Axial images of the chest were obtained without IV contrast. Images were reviewed in the axial, sagittal, and coronal planes. IV contrast was not administered for this examination. Automat ed exposure control was utilized for the study. A dose lowering technique was utilized adhering to t he principles of ALARA. FINDINGS: Thoracic aorta is suboptimally assessed on this unenhanced exam but there is no mediastina l hematoma. Cardiomegaly and moderate sized pericardial effusion are unchanged since CT of 07/20/2023. There is a trace right pleural effusion. There is no pneumothorax. Several nodular opacities within the lower lobes are noted, the largest of which is a 9 mm left lower lobe nodule on image 111 of 253. This is new since CT of July 20, 2023. There are also groundglass opacities within the lower lob es. Multiple old bilateral rib fractures are present. There are probable subacute fractures of the an terior right fourth through seventh ribs and the anterior left fifth and sixth ribs. No thoracic spin e fractures are present. There is extensive anterior osteophytosis of the thoracic spine. Abdomen and pelvis CT will be reported separately. IMPRESSION: 1. No pneumothorax. Subacute appearing fractures of the anterior right fourth through seventh ribs an d the anterior left fifth and sixth ribs. Numerous old bilateral rib fractures. 2. Trace right pleural effusion. 3. Cardiomegaly and a moderate pericardial effusion, unchanged since CT of July 20, 2023. 4. Several nodular opacities within the lower lobes and groundglass opacities, new since prior chest CT. These favor a mild infectious process although are indeterminate. A follow-up chest CT in 3 month s to ensure resolution is recommended. ACT 112: Negative or not required by law. Electronically signed by: Rupesh Martell M.D. 09/27/2023 6:25 PM
[2023-09-27 18:40] LABS: Magnesium 1.9 mg/dl (1.7-2.4)
--- NOTE | 2023-09-27 18:44 | CT Scan Report ---
CT OF THE ABDOMEN AND PELVIS WITHOUT CONTRAST CLINICAL HISTORY: fall 10 days ago, ongoing abdominal pain COMPARISON STUDY: CT of the abdomen and pelvis January 24, 2023. MRI of the abdomen and pelvis 2023. TECHNIQUE: Axial images of the abdomen and pelvis were obtained without IV contrast. Images were revi ewed in the axial, sagittal, and coronal planes. Automated exposure control was utilized for the humberto dy. A dose lowering technique was utilized adhering to the principles of ALARA. FINDINGS: Please note that the chest CT will be reported separately. No hemoperitoneum or pneumoperit oneum is present. Cardiomegaly and moderate pericardial effusion are unchanged. Evaluation of the yi id abdominal viscera is suboptimal on this unenhanced exam. Liver, spleen, adrenal glands, kidneys an d pancreas are similar in appearance to prior CT. Urothelial thickening of the bilateral renal pelves and proximal ureters remains unchanged. Prostate is markedly enlarged, unchanged. A suprapubic satish ter is in place. Status post rectal resection. Irregular presacral density remains unchanged. This fa vors postsurgical change. No pathologically enlarged abdominal or pelvic lymph nodes are present. A small amount of fluid within the pelvis is present. There is no fluid collection. 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 Several loops of mildly dilated small bowel are present within the hernia sac. No acute fractures within the lumbar spine, pelvis or hips are identif ied. IMPRESSION: 1. No acute traumatic findings within the abdomen or pelvis on unenhanced exam. 2. 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 S everal loops of mildly dilated small bowel. A partial small bowel obstruction would be difficult to e xclude. 3. No change in urothelial thickening of the bilateral renal pelves and proximal ureters. Prostatomeg landon, unchanged. No hydronephrosis. ACT 112: Negative or not required by law. Electronically signed by: Rupesh Martell M.D. 09/27/2023 6:41 PM
[2023-09-27 18:55] LABS: Thyroid Stimulating Hormone 1.483 uIu/ml (0.300-4.500)
[2023-09-27] MEDS ORDERED: GLUCOSE 40% GEL 15 GM TUBE PO PRN (21:27)
[2023-09-27] MEDS ORDERED: GLUCOSE 10 TAB/TUBE PO PRN (21:27)
[2023-09-27] MEDS ORDERED: GLUCAGON FOR INJ 1 MG VIAL SQ PRN (21:27)
[2023-09-27] MEDS ORDERED: DEXTROSE 50% 50 ML SYRINGE IV PRN (21:27)
[2023-09-27] MEDS: ROSUVASTATIN CALCIUM 10 MG TAB PO SCH (23:37)
[2023-09-27] MEDS: APIXABAN 2.5 MG TAB PO SCH (23:37)
[2023-09-27] MEDS: LANTUS PER UNIT CHARGE SQ SCH (23:37)
[2023-09-28] MEDS: MAGNESIUM SULFATE / D5W 1 GM/100 ML BAG IV ONE (00:41)
[2023-09-28 02:50] LABS: Appearance Urine Clear (Clear); Bacteria Urine Automated 4+ (None Seen); Bilirubin Urine Negative (Negative); Blood Urine Negative (Negative); Color Urine Yellow; Epithelial Cell Urine Auto 0-2 /hpf (0-2); Glucose Urine UA Negative (Negative); Ketones Urine Negative (Negative); Leukocyte Esterase Urine 2+ (Negative); Nitrite Urine Negative (Negative); Protein Urine 2+ (Negative); RBC Urine Automated 0-2 /hpf (0-2); Specific Gravity Urine 1.008 (1.000-1.030); Urobilinogen Urine Negative (Negative); WBC Urine Automated 21-50 /hpf (0-5); pH Urine 5.5 (4.5-7.5)
[2023-09-28 03:13] LABS: Total Protein Urine Random 94.3 mg/dl (0-11.9)
[2023-09-28 03:18] LABS: Creatinine Urine Random 16.7 mg/dl; Protein Creatinine Ratio Urine 5.6 (0-0.2)
[2023-09-28] MEDS: OXYBUTYNIN CHLORIDE XL 5 MG TABCR PO SCH (06:00)
[2023-09-28] MEDS: FUROSEMIDE 40 MG/4 ML VIAL IV SCH (07:50)
[2023-09-28] MEDS: FERROUS SULFATE 325 MG TAB PO SCH (07:50)
[2023-09-28] MEDS: CHOLECALCIFEROL 25 MCG (1000 UNITS) TAB PO SCH (07:50)
[2023-09-28] MEDS: amLODIPine BESYLATE 5 MG TAB PO SCH (07:50)
[2023-09-28] MEDS: CYANOCOBALAMIN (B-12) 500 MCG TABLET PO SCH (07:50)
[2023-09-28] MEDS: MUPIROCIN 2% OINT 22 GM TUBE TOP SCH (07:57)
--- NOTE | 2023-09-28 08:23 | Hospitalist Progress Note ---
Date of Service September 28, 2023 Assessment & Plan (1) New onset of congestive heart failure: Plan: Unknown ejection fraction - TTE ordered (cardiac silhouette concerningly much larger on CXR today) Bilateral pitting edema (R > L without DVT present), pulmonary edema Possibility related to acute on chronic diastolic heart failure secondary to atrial fibrillation seen at admission Regarding new onset Atrial fibrillation no sure in permanent or paroxysmal, no need for rate controlling agents at this time consider anticoagulation however with falls use caution -holding apixaban 2.5 mg PO BID (reduced dose due to Cr and age given pericardial effusion hold apixiban and possible pericardial tap on 09/29/23 Lasix 40mg IV daily Strict I&Os - aim net negative 1.5-2L daily mild troponin elevation likely demand ischemia CT Chest on presentation reveals some nodules, will benefit from repeat CT in 3 months (2) Fall: Plan: [address] head, c-spine, chest, abdomen, pelvis to rule out internal bleeding prior to starting anticoagulation edema of RLE, Dopper negative on presentation, PT/OT (3) DM (diabetes mellitus), type 2: Plan: Hemoglobin A1c 7.9 in July On 20 units Lantus QPM and Sitagliptin home medications Previous admission glucose was well-controlled on Lantus 5 units BID therefore continue on this NovoLog: --Goal BSG Range: Low 110 mg/dL, High 140 mg/dL --Correction Factor: 45 mg/dL/unit --Carbohydrate ratio = 15 g/unit --BSGs ACHS if eating, q6h if npo (4) Suprapubic catheter: Plan: Chronic If UA concerning for infection, no definitive need to treat this unless having symptoms (UA ordered mainly to check for proteinuria) Plan VTE Prophylaxis - apixaban Diet - type 2 diabetes, heart healthy, low-sodium 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 Admission and Anticipated Discharge Date Admission Date: September 27, 2023 Subjective pt is feeling only complaints from rib fractures, has no pain with nasal bone fracture informed of pericarditis, will have pericardiocentesis on 09/28 Physical Exam Physical Exam: pt is with some rib pain lungs are diminished cardiac is not distant Results & Data Results & Data Vital Signs (Past 12 Hours) Vital Signs Temp Pulse Pulse Resp BP Pulse Ox O2 Del Method 09/28/23 07:36 97.3 F L 73 16 136/84 96 Room Air 05/08/24 03:16 97.5 F L 77 18 119/74 96 Room Air 09/27/23 23:14 97.5 F L 78 18 158/75 H 97 Room Air 09/27/23 21:25 85 09/27/23 21:00 97.5 F L 76 16 189/75 H 96 Room Air Laboratory Results reviewed cbc reviewed chemistry PG Care Time/CCT Total # of Minutes Spent Total Time Spent with Patient: Total time spent is greater than 50% in coordination of care (as documented) at patient's floor/unit and/or counseling patient: Coding Level of Care Code 30888 SUB INP/OBS CARE 3/50MIN Diagnoses New onset of congestive heart failure I50.9 Fall W19.XXXA DM (diabetes mellitus), type 2 E11.9 Suprapubic catheter Z93.59
[2023-09-28 08:24] LABS: Basophils # (auto) 0.03 K/uL (0.00-0.20); Basophils % (auto) 0.4 %; Eosinophils # (auto) 0.13 K/uL (0.00-0.50); Eosinophils % (auto) 1.9 %; Hematocrit (blood only) 36.8 % (42.0-52.0); Hemoglobin 11.7 g/dl (14.0-18.0); Immature Granulocytes # (auto) 0.02 K/uL (0.01-0.20); Immature Granulocytes % (auto) 0.3 %; Lymphocytes % (auto) 7.4 %; Mean Corpuscular Hemoglobin 27.1 pg (25.0-34.0); Mean Corpuscular Hgb Conc 31.8 g/dL (32.0-36.0); Mean Corpuscular Volume 85.4 fL (80.0-100.0); Mean Platelet Volume 10.1 fL (9.4-12.4); Monocytes # (auto) 0.45 K/uL (0.11-0.59); Monocytes % (auto) 6.6 %; Neutrophils # (auto) 5.66 K/uL (1.40-6.50); Neutrophils % (auto) 83.4 %; Platelet Count 252 K/uL (130-400); RDW Coefficient of Variation 15.8 % (11.5-14.5); RDW Standard Deviation 49.1 fL (36.4-46.3); Red Blood Count 4.31 M/uL (4.70-6.10); White Blood Count 6.79 K/ul (4.8-10.8)
[2023-09-28] MEDS: INSULIN ASPART PER UNIT CHARGE SC SCH (08:43)
[2023-09-28] MEDS ORDERED: SITagliptin PHOSPHATE 25 MG TAB PO SCH (09:00)
[2023-09-28 09:06] LABS: BUN Creatinine Ratio 17.9 (10-20); Calcium 8.5 mg/dl (8.6-10.3); Creatinine Clr Calc Pharmacy 23.8 ml/min; Est GFR (African American) 28.6 ml/min; Est GFR (Non-African American) 24.7 ml/min
--- NOTE | 2023-09-28 10:02 | XCELERA ---
[id number]
--- NOTE | 2023-09-28 13:55 | Cardiology Consultation ---
Date of Consultation September 28, 2023 Assessment & Plan (1) Pericardial effusion: 2. HFpEFpreserved LV function with regional wall motion normalities 3. New onset atrial fibrillation 4. Type 2 diabetes 5. Stage III-IV CKD 6. History of rectal cancer with colostomy, chronic indwelling Marks Patient here with primarily right-sided heart failure, found to have new onset rate controlled atrial fibrillation and moderate to large pericardial effusion with early signs of tamponade on echo. Asymptomatic with atrial fibrillation and responding to IV diuretics. Pericardial effusion has been present since at least June on prior CT scan. Clinically not in tamponade currently but echo findings concerning. Etiology of effusion unclear and with patient's history of malignancy feel pericardiocentesis also potentially beneficial from a diagnostic standpoint. Plan: Recommend ultrasound-guided pericardiocentesis tomorrow Received Eliquis this morning. Agree with anticoagulation long-term but continue to hold until post procedure Continue IV diuresis today. Continue ASCVD risk factor modification. Suspect CAD with regional wall motion abnormalities/coronary calcification and risk factors but asymptomatic and no plans for further ischemic testing at this time. History of Present Illness Attending Physician: Avelino Llanos MD History of Present Illness Mr. Bhakta is a very pleasant 83-year-old man seen today in the setting of acute heart failure, new atrial fibrillation and large pericardial effusion. Past medical history includes type 2 diabetes, stage III CKD (baseline creatinine around 2.1), anemia and history of rectal cancer diagnosed in 2018, now in the remission postresection complicated by need for long-term indwelling Marks and colostomy. Active at baseline, frequently hiking. 1 week ago was out hiking and had what sounds like a mechanical fall. Was unable to get up for most 6 hours before found by passerby. No medical evaluation at that time. Since that time has noted some gradually improving right-sided chest wall pain. No real significant shortness of breath. Has had gradually progressive right greater than left l ower extremity edema and was concerned for DVT leading to ED yesterday. Venous duplex negative for DVT. Was noted to be a new rate controlled atrial fibrillation, no dynamic ST changes on ECG. Chest CT notable for pulmonary edema and moderate pericardial effusion noted on prior chest CT back 06/2023. HS TropI flat at 26. Echo today showed preserved LV function, EF 50% with questionable new wall motion abnormalities involving apical septum, inferolateral wall. Was noted to have a large circumferential pericardial effusion with some evidence of diastolic RV collapse. At present patient feeling well. Denies any chest pain. Denies any recent change to his exercise tolerance. States lower extremity edema slightly improved with IV diuresis started in ED. Denies any fevers or chills. No recent orthopnea/PND. 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 Lifelong non-smoker. , lives independently. Allergies Allergy/AdvReac Type Severity Reaction Status Date / Time atorvastatin [From Lipitor] Allergy Unknown Verified 09/15/23 14:16 Home Medications Medication Instructions Recorded Confirmed Type ferrous sulfate 325 mg (65 mg 325 mg PO QAM 02/24/18 09/27/23 History iron) tablet rosuvastatin 10 mg tablet 10 mg PO HS 02/24/18 09/27/23 History cyanocobalamin (vitamin B-12) 1,000 mcg PO DAILY 12/19/19 09/27/23 History 1,000 mcg tablet (Vitamin B-12) cholecalciferol (vitamin D3) 25 2,000 unit PO DAILY #180 tabs 04/25/20 09/27/23 Rx mcg (1,000 unit) tablet (Vitamin D3) amlodipine 2.5 mg tablet 2.5 mg PO DAILY #90 tabs 09/25/21 09/27/23 Rx mupirocin 2 % topical ointment 1 applic topical TID 04/18/23 09/27/23 History trospium 60 mg capsule,extended 60 mg PO DAILYBB 04/18/23 09/27/23 History release 24 hr Tylenol See Rx Instructions .Route 09/27/23 09/27/23 History .COMPLEX PRN Pain insulin glargine 100 unit/mL (3 20 unit subcut PM 09/27/23 09/27/23 History mL) subcutaneous pen (Basaglar KwikPen U-100 Insulin) sitagliptin phosphate 50 mg tablet 50 mg PO DAILY 09/27/23 09/27/23 History (Januvia) Patient History Medical History (Updated 09/28/23 @ 14:04 by Eric Telles MD) Jewell UTI DM (diabetes mellitus), type 2 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 Anemia Vitamin D deficiency Diabetes Chronic kidney disease, stage III (moderate) Syncope and collapse Rectal cancer (06/17/17) "Rectal bleeding Status post colonoscopy and biopsy 06/17/2017 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 Plan for combined radiation and chemotherapy followed by possible resection Status post completion of combined radiation and chemotherapy August 30, 2017." On 07/07/17 13:09 Felicia Hannon wrote "Rectal bleeding Status post colonoscopy and biopsy 06/17/2017 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 Plan for combined radiation and chemotherapy followed by possible resection" Pre-syncope Obstructive uropathy Diarrhea Surgical History Previous back surgery Family History Other Family history non-contributory Social History Smoking Status: Never smoker Hx Alcohol Use: No Hx Substance Use: No Preferred Language: Guatemalan Communication Ability: Effective Visual Impairment: No Limitations 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: Normal Electronic Device Repairer Required: No Beliefs That Will Affect Care: None marital status: / Current Living Situation: Alone Current Living Situation Comment: home current occupational status: retired Other Information That Helps Us Care for You: No Feels Safe at Home: Yes Safety Concerns: Feels Safe At This Time Assistive Devices: None Review of Systems Review of Systems: All systems reviewed & are unremarkable except as noted in HPI & below Physical Exam Physical Exam: General: Comfortable, sitting up on edge of bed HEENT: Sclerae anicteric Lungs: Clear to auscultation bilaterally Cardiac: Irregular irregular, no murmurs Vascular: 2+ radial Abdomen: Soft, nontender, ostomy bag in place with brown stool, reducible hernia around ostomy Extremities: Well perfused, 2+ edema right greater than left extending to mid alan, mild erythema over anterior shins bilaterally. No areas of skin breakdown. Neuro: Nonfocal Psych: Alert orient x3, normal affect and mood Results & Data Vital Signs (Past 12 Hours) Vital Signs Temp Pulse Pulse Resp BP Pulse Ox O2 Del Method 09/28/23 11:38 97.7 F 73 16 138/70 97 Room Air 09/28/23 09:37 74 09/28/23 07:36 97.3 F L 73 16 136/84 96 Room Air 05/08/24 03:16 97.5 F L 77 18 119/74 96 Room Air PG Care Time/CCT Total # of Minutes Spent Total Time Spent with Patient: Total time spent is greater than 50% in coordination of care (as documented) at patient's floor/unit and/or counseling patient: Coding Level of Care Code 31180 INT INP/OBS CARE MIN Diagnoses Pericardial effusion I31.39
[2023-09-28] MEDS: TRIAMCINOLONE 0.1% TOP SCH (23:09)
--- NOTE | 2023-09-29 06:09 | Electrocardiogram Report ---
Test Reason : Blood Pressure : / mmHG Vent. Rate : 072 BPM Atrial Rate : 000 BPM P-R Int : 000 ms QRS Dur : 086 ms QT Int : 408 ms P-R-T Axes : 000 101 126 degrees QTc Int : 446 ms Atrial fibrillation with premature ventricular or aberrantly conducted complexes Rightward axis Anterior infarct , age undetermined Nonspecific T wave abnormality Abnormal ECG When compared with ECG of 20-JAN-2023 18:31, Atrial fibrillation has replaced Sinus rhythm Anterior infarct is now Present Nonspecific T wave abnormality now evident in Inferior leads T wave inversion now evident in Lateral leads Confirmed by Jasbir Clifford ([id number]) on 09/29/2023 6:09:12 AM Referred By: REFERRED SELF Confirmed By:Jasbir Clifford
--- NOTE | 2023-09-29 06:10 | Electrocardiogram Report ---
Test Reason : Blood Pressure : / mmHG Vent. Rate : 070 BPM Atrial Rate : 000 BPM P-R Int : 000 ms QRS Dur : 088 ms QT Int : 362 ms P-R-T Axes : 000 003 103 degrees QTc Int : 390 ms Atrial fibrillation Nonspecific ST and T wave abnormality Abnormal ECG When compared with ECG of 27-SEP-2023 16:31, Criteria for Anterior infarct are no longer Present Nonspecific T wave abnormality no longer evident in Inferior leads QT has shortened Confirmed by Jasbir Clifford ([id number]) on 09/29/2023 6:09:49 AM Referred By: REFERRED SELF Confirmed By:Jasbir Clifford
--- NOTE | 2023-09-29 07:19 | Hospitalist Progress Note ---
Date of Service September 29, 2023 Assessment & Plan (1) New onset of congestive heart failure: Plan: concern for acute systolic and diastolic heart failure Bilateral pitting edema (R > L without DVT present), Possibility related to acute on chronic diastolic heart failure secondary to atrial fibrillation seen at admission, but noted pericardial effusion with Rv impact seen plan for pericardiocentesis on 09/29/23, pericardial drain left in place Regarding new onset Atrial fibrillation not sure in permanent or paroxysmal, no need for rate controlling agents at this time consider anticoagulation however with falls use caution -holding apixaban 2.5 mg PO BID (reduced dose due to Cr and age) for procedure Lasix 40mg IV daily mild troponin elevation likely demand ischemia CT Chest on presentation reveals some nodules, will benefit from repeat CT in 3 months (2) Fall: Plan: [address] head, c-spine, chest, abdomen, pelvis to rule out internal bleeding prior to starting anticoagulation edema of RLE, Dopper negative on presentation, PT/OT (3) DM (diabetes mellitus), type 2: Plan: Hemoglobin A1c 7.9 in July On 20 units Lantus QPM and Sitagliptin home medications Previous admission glucose was well-controlled on Lantus 5 units BID therefore continue on this NovoLog: --Goal BSG Range: Low 110 mg/dL, High 140 mg/dL --Correction Factor: 45 mg/dL/unit --Carbohydrate ratio = 15 g/unit --BSGs ACHS if eating, q6h if npo (4) Suprapubic catheter: Plan: Chronic If UA concerning for infection, no definitive need to treat this unless having symptoms (UA ordered mainly to check for proteinuria) Plan Diet - type 2 diabetes, heart healthy, low-sodium 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 Admission and Anticipated Discharge Date Admission Date: September 27, 2023 Subjective pt went for pericardial drain, cardiology wants to leave drain in pt clinically feels well except for rib pain from fractures Physical Exam Physical Exam: pt is with regular cardiac tones, with slight murmur lungs are clear extremity with improving edema Results & Data Results & Data Vital Signs (Past 12 Hours) Vital Signs Temp Pulse Pulse Resp BP Pulse Ox O2 Del Method 09/29/23 04:04 97.5 F L 69 18 118/78 97 Room Air 09/28/23 23:09 66 09/28/23 23:00 97.9 F 64 18 133/72 96 Room Air Laboratory Results review cbc review chemistry PG Care Time/CCT Total # of Minutes Spent Total Time Spent with Patient: Total time spent is greater than 50% in coordination of care (as documented) at patient's floor/unit and/or counseling patient: Coding Level of Care Code 73979 SUB INP/OBS CARE 2/35MIN Diagnoses New onset of congestive heart failure I50.9 Fall W19.XXXA DM (diabetes mellitus), type 2 E11.9 Suprapubic catheter Z93.59
[2023-09-29 07:55] LABS: INR 1.1 (0.9-1.1); Partial Thromboplastin Ratio 1.2; Partial Thromboplastin Time 33 Seconds (21-31)
[2023-09-29 08:06] LABS: BUN Creatinine Ratio 18.4 (10-20); Calcium 8.3 mg/dl (8.6-10.3); Creatinine Clr Calc Pharmacy 22.8 ml/min; Est GFR (African American) 27.2 ml/min; Est GFR (Non-African American) 23.5 ml/min; Potassium 3.9 mmol/L (3.5-5.1)
[2023-09-29 08:17] LABS: Hematocrit (blood only) 36.2 % (42.0-52.0); Hemoglobin 11.5 g/dl (14.0-18.0); Mean Corpuscular Hemoglobin 26.8 pg (25.0-34.0); Mean Corpuscular Hgb Conc 31.8 g/dL (32.0-36.0); Mean Corpuscular Volume 84.4 fL (80.0-100.0); Mean Platelet Volume 9.4 fL (9.4-12.4); Platelet Count 248 K/uL (130-400); RDW Coefficient of Variation 15.6 % (11.5-14.5); Red Blood Count 4.29 M/uL (4.70-6.10); White Blood Count 7.56 K/ul (4.8-10.8)
--- NOTE | 2023-09-29 14:04 | Pre Anesthesia Assessment ---
Date of Service September 29, 2023 Pre Sedation Assessment Vital Signs Temp Pulse Pulse Resp BP Pulse Ox O2 Del Method 09/29/23 11:39 97.5 F L 82 18 136/76 96 Room Air 09/29/23 08:58 76 09/29/23 08:56 Room Air 09/29/23 08:00 98.1 F 70 18 120/70 92 Room Air 09/29/23 04:04 97.5 F L 69 18 118/78 97 Room Air 09/28/23 23:09 66 09/28/23 23:00 97.9 F 64 18 133/72 96 Room Air 09/28/23 19:00 97.9 F 67 18 142/87 H 98 Room Air 09/28/23 16:57 83 09/28/23 15:24 97.9 F 80 16 135/81 98 Room Air Cardiovascular + regular rate Respiratory + respiratory effort normal Pre-Sedation Airway Assessment Smoking Status: Never smoker Hx Sleep Apnea: No Hx Difficult Intubation: No Short, Thick Neck: No Thyromental Distance: < 3.5 Finger Breadths Oral Cavity: + Dental Abnormalities Mallampati Class: III ASA: ASA3 Procedure Planning Contraindications for Sedation: none Current Medications Reviewed: Yes Notes The planned sedation has been discussed with the patient. Informed Consent was obtained. I have identified the patient, determined the appropriateness of sedation and have assessed the patient immediately prior to the procedure. All medicine(s) and interventions are by my order.
[2023-09-29] MEDS: LIDOCAINE 1% LOCAL 20 ML VIAL ONE ×2 (15:30→15:31)
[2023-09-29] MEDS: MIDAZOLAM HCL 1 MG/ML 2ML VIAL ONE (15:31)
[2023-09-29] MEDS: fentaNYL citrate PF 100 MCG/2 ML VIAL ONE (15:31)
--- NOTE | 2023-09-29 16:53 | Post Anesthesia Assessment ---
Date of Service September 29, 2023 Post Sedation Assessment Vital Signs Temp Pulse Pulse Pulse Resp BP Pulse Ox 09/29/23 16:10 72 09/29/23 16:00 54 L 16 135/71 93 09/29/23 15:45 53 L 16 130/71 93 09/29/23 11:39 97.5 F L 82 18 136/76 96 09/29/23 08:58 76 09/29/23 08:56 09/29/23 08:00 98.1 F 70 18 120/70 92 09/29/23 04:04 97.5 F L 69 18 118/78 97 09/28/23 23:09 66 09/28/23 23:00 97.9 F 64 18 133/72 96 09/28/23 19:00 97.9 F 67 18 142/87 H 98 09/28/23 16:57 83 O2 Del Method 09/29/23 16:10 09/29/23 16:00 Room Air 09/29/23 15:45 Room Air 09/29/23 11:39 Room Air 09/29/23 08:58 09/29/23 08:56 Room Air 09/29/23 08:00 Room Air 09/29/23 04:04 Room Air 09/28/23 23:09 09/28/23 23:00 Room Air 09/28/23 19:00 Room Air 09/28/23 16:57 Recovery Score Activity: Moves 4 extremities Respiration: Deep Breath/Cough Circulation: +/-20% PreAnes Value Consciousness: Fully Awake Oxygen Saturation: > 92% On Room Air Post Anesthesia Score: 10 Discharge Sedation Level of Care: Fast Track Phase II Post Sedation Plan On clinical assessment, the patient appears to have tolerated the sedation without complications. Patient is recovering as anticipated. Patient will continue to be monitored by nursing and may be discharged when sedation discharge criteria are met per below protocol. Upon Completions of procedure up to 15 minutes continue every 5 minute vital signs and the P.A.R. score; then discharge to a Phase I or Fast Track to Phase II per the following guidelines: * Discharge Patient to appropriate Phase II area if PAR is 8 or greater or return to pre- procedure baseline. The post - procedure orders will be as directed. * If PAR score is less than 8 or not return to pre-procedure baseline then patient will follow Phase I monitoring till PAR is reached for Phase II. The Phase I may be done in procedure room or may call to secure a Phase I area. * If naloxone or flumazenil are used for reversal, hold in Phase I for continued monitoring from when last reversal dose was given for a minimum of 60 minutes or longer pending the nurse and/or physician discretion of patient condition before discharge to Phase II. Please call the Sedation Physician to re-evaluate and complete post-note for discharge to Phase II area. Do NOT discharge from procedure sedation or Phase 1 until post- sedation evaluation note is complete by procedure /sedation MD Sedation Discharge Instructions to be given to the patient at discharge to home.
--- NOTE | 2023-09-29 17:08 | Cardiac Catheterization ---
[facility] Data: Telecommunications Project Manager Cardiac Status Clinical evaluation leading to the procedure CAD Presenation: Sx unlikely to be ischemic Diagnostic Physicians Name: Eric Telles MD Closure Device Recommendations: Medical Therapy and/or Counseling Cardiac Cath Procedure Full Procedure Date September 29, 2023 Pre-Procedure Diagnosis Pre-Procedure Diagnosis: Pericardial Disease AUC Score AUC Score: 7 Post-Procedure Diagnosis Post-Procedure Diagnosis: Cardiothoracic Finding (Pericardial effusion) Procedure(s) Performed Procedure(s) Performed: Pericardiocentesis Die Casting Supervisor Eric Telles MD Freight Engineer(s) Benjamín Christianson Estimated Blood Loss Estimated Blood Loss: pericardial Medication(s) Medication(s): Fentanyl, Lidocaine 1% and Versed Summary of Findings Pericardiocentesis Indication: Early echocardiographic signs of tamponade, large pericardial effusion with history of malignancy Procedure: Patient prepped and draped in standard sterile fashion Moderate sedation with fentanyl/Versed Local anesthesia with 1% lidocaine Initial subxiphoid approach under ultrasound/fluoroscopic guidance with micropuncture needle, catheter. Measured opening pressure, consistent with RV pressure and Catheter removed. Transition to apical approach under ultrasound guidance. Pericardial space accessed with micropuncture needle. Intrapericardial space position confirmed via transducer pressure, saline contrast injection. 6 Fr pigtail catheter placed to pericardial space Aspirated 450 mL of bloody fluid Repeat echocardiogram images showed improved RV filling and only mild residual pericardial effusion most notable on lateral aspect of heart Pigtail catheter sutured in place Summary: 1. Successful pericardiocentesis with removal of 450 mL of bloody fluid. Recommendations: Plan to leave pericardial drain in place overnight. Manual aspiration every 6-8 hours. Follow-up cell counts, cytology, cultures Repeat limited echocardiogram in a.m. Hemodynamics Rest Ao:: -- Final Ao: -- LV: -- Recommendations Recommendations: Medical Therapy and/or Counseling Specimens Specimens: None Radiation Exposure (mGy) 123 Contrast (mls) -- Anesthesia Moderate [id number] Procedural Complication(s) None Disposition Telecommunications Project Manager Holding/Recovery I attest to the content of the Intraoperative Record and any orders documented therein. Any exceptions are noted below. [facility] Card Cath Procedure Codes Therapeutic Services & Ancillary Procedure 1: Cardiovascular Tx and Anc Procedures: 64966 Pericardiocentesis w / Imaging Moderate Sedation Procedure 1: Sedation/Anesthesia: 77006 Mod Sedation by the same physician;Init15 Min Child Age 5 & Up Procedure 2: Sedation/Anesthesia: 66070 Mod Sedation by the same physician; Ea [id number] Minutes PG Care Time/CCT Total # of Minutes Spent Total Time Spent with Patient: Total time spent is greater than 50% in coordination of care (as documented) at patient's floor/unit and/or counseling patient:
[2023-09-29] MEDS: ICU Protocol for HYPERglycemia SCH (17:15)
--- NOTE | 2023-09-29 18:05 | XCELERA ---
[id number]
[2023-09-29] MEDS: ACETAMINOPHEN 325 MG TAB PO PRN (21:58)
--- NOTE | 2023-09-29 22:08 | Cardiology Progress Note ---
Date of Service September 29, 2023 Assessment & Plan (1) Pericardial effusion: Plan: 2. HFpEFpreserved LV function with regional wall motion normalities -- improved congestion 3. New onset atrial fibrillation-- rate controlled, [id number] 5; anticoagulation on hold 4. Type 2 diabetes--A1c 7.9; on insulini 5. 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 History of rectal cancer with colostomy, chronic indwelling Marks 7. Anemia - stable Post pericardiocentesis with removal of 450ml bloody fluid. Improved RV expansion on post procedure echo with mild residual fluid. Hemodynamically and electrically stable. Negative more than 2.5L. LE edema much improved. Renal function stable. Additional 125 ml sanguinous fluid aspirated 6+ hrs after pericardiocentesis Plan to leave pericardial drain in place overnight. Pain control PRN Manual aspiration in AM Follow-up cell counts, cytology, cultures Repeat limited echocardiogram in a.m. - If output reduced in AM will remove pericardial drain tomorrow - Continue to hold Eliquis - Start Colchicine 0.6 mg - Likely transition to PO lasix tomorrow. - Hold amlodipine Admission and Anticipated Discharge Date Admission Date: September 27, 2023 Subjective Seen this evening for aspiration of pericardial drain. More discomfort around drain site tonight. Pain, non-pleuritic. No shortness of breath. No other new concerns. Telemetry reviewed - no events Review of Systems Review of Systems: All systems reviewed & are unremarkable except as noted in HPI & below Physical Exam Physical Exam: General: Comfortable lying in bed HEENT: Sclerae anicteric Lungs: Clear to auscultation bilaterally. Drain in place. No surrounding erythema. Cardiac: Irregular irregular, no murmurs Vascular: 2+ radial Abdomen: Soft, nontender, ostomy bag in place with brown stool, reducible hernia around ostomy Extremities: Well perfused, 1+ edema right greater than left alan, mild erythema over anterior shins bilaterally. No areas of skin breakdown. Neuro: Nonfocal Psych: Alert orient x3, normal affect and mood Results & Data Vital Signs (Past 12 Hours) Vital Signs Temp Pulse Pulse Pulse Resp BP BP 09/29/23 21:01 67 17 116/71 09/29/23 21:00 61 22 09/29/23 21:00 09/29/23 20:00 69 19 09/29/23 19:31 09/29/23 19:30 74 30 H 09/29/23 19:13 97.5 F L 09/29/23 19:01 69 22 114/67 09/29/23 19:00 69 19 09/29/23 17:00 98.1 F 78 78 18 09/29/23 16:50 09/29/23 16:10 72 09/29/23 16:00 54 L 16 135/71 09/29/23 15:46 68 09/29/23 15:46 98.4 F 75 75 16 143/84 H 09/29/23 15:45 53 L 16 130/71 09/29/23 11:39 97.5 F L 82 18 136/76 Pulse Ox O2 Del Method O2 Del Method 09/29/23 21:01 98 09/29/23 21:00 87 L 09/29/23 21:00 Room Air 09/29/23 20:00 98 09/29/23 19:31 Room Air 09/29/23 19:30 87 L 09/29/23 19:13 09/29/23 19:01 90 09/29/23 19:00 75 L 09/29/23 17:00 97 Room Air 09/29/23 16:50 Room Air 09/29/23 16:10 09/29/23 16:00 93 Room Air 09/29/23 15:46 09/29/23 15:46 97 Room Air 09/29/23 15:45 93 Room Air 09/29/23 11:39 96 Room Air PG Care Time/CCT Total # of Minutes Spent Total Time Spent with Patient: Total time spent is greater than 50% in coordination of care (as documented) at patient's floor/unit and/or counseling patient: Coding Level of Care Code 03707 SUB INP/OBS CARE 3/50MIN Diagnoses Pericardial effusion I31.39
[2023-09-29] MEDS: COLCHICINE 0.6 MG TAB PO SCH (23:09)
[2023-09-30 05:11] LABS: Basophils # (auto) 0.02 K/uL (0.00-0.20); Basophils % (auto) 0.2 %; Eosinophils # (auto) 0.01 K/uL (0.00-0.50); Eosinophils % (auto) 0.1 %; Hematocrit (blood only) 34.4 % (42.0-52.0); Immature Granulocytes # (auto) 0.08 K/uL (0.01-0.20); Immature Granulocytes % (auto) 0.6 %; Lymphocytes # (auto) 0.54 K/uL (1.20-3.40); Lymphocytes % (auto) 4.2 %; Mean Corpuscular Volume 84.5 fL (80.0-100.0); Mean Platelet Volume 9.8 fL (9.4-12.4); Monocytes # (auto) 0.98 K/uL (0.11-0.59); Monocytes % (auto) 7.6 %; Neutrophils # (auto) 11.28 K/uL (1.40-6.50); Neutrophils % (auto) 87.3 %; Platelet Count 250 K/uL (130-400); RDW Coefficient of Variation 15.6 % (11.5-14.5); RDW Standard Deviation 48.1 fL (36.4-46.3); Red Blood Count 4.07 M/uL (4.70-6.10); White Blood Count 12.91 K/ul (4.8-10.8)
[2023-09-30 05:24] LABS: BUN Creatinine Ratio 18.8 (10-20); Calcium 8.4 mg/dl (8.6-10.3); Creatinine Clr Calc Pharmacy 19.2 ml/min; Magnesium 1.8 mg/dl (1.7-2.4); Potassium 4.8 mmol/L (3.5-5.1)
--- NOTE | 2023-09-30 07:35 | Hospitalist Progress Note ---
Date of Service September 30, 2023 Assessment & Plan (1) New onset of congestive heart failure: Plan: concern for acute systolic and diastolic heart failure Bilateral pitting edema (R > L without DVT present), Possibility related to acute on chronic diastolic heart failure secondary to atrial fibrillation seen at admission, but noted pericardial effusion with Rv impact seen Status post pericardiocentesis on 09/29/23, 500 mL initial drain 150 later. Bloody fluid. Pericardial drain left in place Regarding new onset Atrial fibrillation not sure in permanent or paroxysmal, no need for rate controlling agents at this time considered anticoagulation however with falls. bloody pericardial effusion will hold Lasix 40mg on hold due to CLAYTON on CKD 3 mild troponin elevation likely demand ischemia CT Chest on presentation reveals some nodules, will benefit from repeat CT in 3 months (2) Fall: Plan: [address] head, c-spine, chest, abdomen, pelvis to rule out internal bleeding prior to starting anticoagulation edema of RLE, Dopper negative on presentation, urine now did result in Klebsiella and Pseudomonas, >100,000, thus fall maybe metabolic encephalopahty and weakness,\ starting Cefepime, resistent to quinalones, can also consider meropenem PT/OT (3) DM (diabetes mellitus), type 2: Plan: Hemoglobin A1c 7.9 in July On 20 units Lantus QPM and Sitagliptin home medications Previous admission glucose was well-controlled on Lantus 5 units BID therefore continue on this NovoLog: --Goal BSG Range: Low 110 mg/dL, High 140 mg/dL --Correction Factor: 45 mg/dL/unit --Carbohydrate ratio = 15 g/unit --BSGs ACHS if eating, q6h if npo (4) Suprapubic catheter: Plan: Chronic UA shows both Klebsiella and Pseudomonas with different sensitivities and resistance only placed on cefepime therapy close to Zosyn therapy however given these organisms likely will need a few days of intravenous antibiotics in the hospital. Concern of fall could be from metabolic encephalopathy from urinary tract infection present on admission. Plus minus heart failure from his pericardial effusion. Plan Diet - type 2 diabetes, heart healthy, low-sodium 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 Admission and Anticipated Discharge Date Admission Date: September 27, 2023 Subjective Patient has concerns with staying in the hospital was disclosed to him that he does have both the Klebsiella and Pseudomonas UTI. His pericardial drain was removed today. By cardiology. He has no overt complaints or problems likely will be de-escalated from ICU Physical Exam Physical Exam: Awake alert and appropriate. Cardiac exam is regular drain is in place when I saw him he was subsequently removed later. Lungs are clear without wheezes or crackles Abdomen NABS soft nontender Extremities with trace edema Results & Data Results & Data Vital Signs (Past 12 Hours) Vital Signs Temp Pulse Resp BP Pulse Ox O2 Del Method 09/30/23 06:00 65 10 L 94 09/30/23 06:00 88/48 L 09/30/23 05:01 99/52 L 09/30/23 05:01 76 23 91 09/30/23 05:00 73 24 93 09/30/23 04:00 72 22 94 09/30/23 03:00 66 19 89 L 09/30/23 02:45 98.1 F 09/30/23 02:35 112/61 09/30/23 02:35 72 19 93 09/30/23 02:00 64 9 L 93 09/30/23 02:00 96/52 L 09/30/23 01:00 62 23 96 09/30/23 00:24 72 09/30/23 00:00 65 15 103/56 L 09/29/23 23:14 98.1 F 09/29/23 23:00 65 21 101/68 89 L 09/29/23 22:00 75 23 92 09/29/23 21:01 67 17 116/71 98 09/29/23 21:00 61 22 87 L 09/29/23 21:00 Room Air 09/29/23 20:00 69 19 98 Laboratory Results Reviewed CBC reviewed chemistry reviewed urine culture PG Care Time/CCT Total # of Minutes Spent Total Time Spent with Patient: Total time spent is greater than 50% in coordination of care (as documented) at patient's floor/unit and/or counseling patient: Coding Level of Care Code 36151 SUB INP/OBS CARE 2/35MIN Diagnoses New onset of congestive heart failure I50.9 Fall W19.XXXA DM (diabetes mellitus), type 2 E11.9 Suprapubic catheter Z93.59
[2023-09-30] MEDS: CEFEPIME 2,000 MG in SYRINGE 0 ML IV ONE (08:05)
--- NOTE | 2023-09-30 17:43 | Cardiology Progress Note ---
Date of Service September 30, 2023 Assessment & Plan (1) Pericardial effusion: Plan: 2. HFpEFpreserved LV function with regional wall motion normalities -- improved congestion 3. New onset atrial fibrillation-- rate controlled, [id number] 5; anticoagulation on hold 4. Type 2 diabetes--A1c 7.9; on insulin 5. 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 History of rectal cancer with colostomy, chronic indwelling Marks 7. Anemia - stable Presenting congestion/LE edema much improved. Remains in rate controlled AF Mild CLAYTON, leukocytosis today. Started on IV antibiotics. Repeat limited echo this afternoon showed small to medium pericardial effusion. Aspirated an additional 150 ml sanguinous fluid this afternoon. Drain removed. Hold lasix, amlodipine and colchicine. Follow-up cell counts, cytology, cultures Repeat limited at some point over weekend - Continue to hold Eliquis will follow Admission and Anticipated Discharge Date Admission Date: September 27, 2023 Subjective Reports generalized fatigue. Still with discomfort around drain site. No shortness of breath. Telemetry reviewed - remains in rate controlled AF Review of Systems Review of Systems: All systems reviewed & are unremarkable except as noted in HPI & below Physical Exam Physical Exam: General: Comfortable HEENT: Sclerae anicteric Lungs: Clear to auscultation bilaterally. Drain in place. No surrounding erythema. Cardiac: Irregular irregular, no murmurs Vascular: 2+ radial Abdomen: Soft, nontender, reducible hernia around ostomy Extremities: Well perfused, minimal right greater than left alan, mild erythema over anterior shins bilaterally. No areas of skin breakdown. Neuro: Nonfocal Psych: Alert orient x3, normal affect and mood Results & Data Vital Signs (Past 12 Hours) Vital Signs Pulse Resp BP Pulse Ox O2 Del Method 09/30/23 08:30 67 18 94 09/30/23 08:00 66 21 99 09/30/23 08:00 100/59 L 09/30/23 07:30 Room Air 09/30/23 07:00 73 12 94 09/30/23 06:00 65 10 L 94 09/30/23 06:00 88/48 L PG Care Time/CCT Total # of Minutes Spent Total Time Spent with Patient: Total time spent is greater than 50% in coordination of care (as documented) at patient's floor/unit and/or counseling patient: Coding Level of Care Code 28629 SUB INP/OBS CARE 50MIN Diagnoses Pericardial effusion I31.39
[2023-09-30] MEDS: CEFEPIME 1,000 MG in SYRINGE 0 ML IV SCH (20:24)
--- NOTE | 2023-09-30 21:08 | XCELERA ---
[id number]
[2023-10-01 04:58] LABS: Basophils # (auto) 0.04 K/uL (0.00-0.20); Basophils % (auto) 0.3 %; Eosinophils # (auto) 0.04 K/uL (0.00-0.50); Eosinophils % (auto) 0.3 %; Hematocrit (blood only) 35.4 % (42.0-52.0); Hemoglobin 11.3 g/dl (14.0-18.0); Immature Granulocytes # (auto) 0.08 K/uL (0.01-0.20); Immature Granulocytes % (auto) 0.7 %; Lymphocytes % (auto) 5.9 %; Mean Corpuscular Hemoglobin 26.9 pg (25.0-34.0); Mean Corpuscular Hgb Conc 31.9 g/dL (32.0-36.0); Mean Corpuscular Volume 84.3 fL (80.0-100.0); Mean Platelet Volume 10.2 fL (9.4-12.4); Monocytes # (auto) 0.96 K/uL (0.11-0.59); Monocytes % (auto) 8.1 %; Neutrophils # (auto) 9.96 K/uL (1.40-6.50); Neutrophils % (auto) 84.7 %; Platelet Count 251 K/uL (130-400); RDW Coefficient of Variation 15.9 % (11.5-14.5); RDW Standard Deviation 49.3 fL (36.4-46.3); White Blood Count 11.78 K/ul (4.8-10.8)
[2023-10-01 05:10] LABS: BUN Creatinine Ratio 19.6 (10-20); Calcium 8.9 mg/dl (8.6-10.3); Creatinine Clr Calc Pharmacy 17.7 ml/min; Est GFR (Non-African American) 17.2 ml/min; Potassium 4.7 mmol/L (3.5-5.1)
--- NOTE | 2023-10-01 07:45 | Hospitalist Progress Note ---
Date of Service October 01, 2023 Assessment & Plan (1) New onset of congestive heart failure: Plan: concern for acute systolic and diastolic heart failure Bilateral pitting edema (R > L without DVT present), Possibility related to acute on chronic diastolic heart failure secondary to atrial fibrillation seen at admission, but noted pericardial effusion with Rv impact seen Status post pericardiocentesis on 09/29/23, 500 mL initial drain 150 later. Bloody fluid. Pericardial drain removed 09/30/23 Regarding new onset Atrial fibrillation not sure in permanent or paroxysmal, no need for rate controlling agents at this time considered anticoagulation however with falls. bloody pericardial effusion will continue to hold on anticoagulation Lasix 40mg remains on hold due to CLAYTON on CKD 3 mild troponin elevation likely demand ischemia CT Chest on presentation reveals some nodules, will benefit from repeat CT in 3 months (2) Fall: Plan: [address] head, c-spine, chest, abdomen, pelvis to rule out internal bleeding prior to starting anticoagulation edema of RLE, Dopper negative on presentation, urine now did result in Klebsiella and Pseudomonas, >100,000, thus fall maybe m etabolic encephalopahty and weakness,\ starting Cefepime, resistent to quinalones, can also consider meropenem PT/OT (3) DM (diabetes mellitus), type 2: Plan: Hemoglobin A1c 7.9 in July On 20 units Lantus QPM and Sitagliptin home medications Previous admission glucose was well-controlled on Lantus 5 units BID therefore continue on this NovoLog: --Goal BSG Range: Low 110 mg/dL, High 140 mg/dL --Correction Factor: 45 mg/dL/unit --Carbohydrate ratio = 15 g/unit --BSGs ACHS if eating, q6h if npo (4) Suprapubic catheter: Plan: Chronic UA shows both Klebsiella and Pseudomonas with different sensitivities and resistance only placed on cefepime therapy close to Zosyn therapy however given these organisms likely will need a few days of intravenous antibiotics in the hospital. Concern of fall could be from metabolic encephalopathy from urinary tract infect ion present on admission. Plus minus heart failure from his pericardial effusion. 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 His pericardial drain was removed 09/30/23. By cardiology. repeat echo shows some loculated effusion but improved hemodynamics does have some clayton, is weak and dizzy Physical Exam Physical Exam: Awake alert and appropriate. Cardiac exam is regular, drain is removed. some sub xyphoid pain but does also have rib fractures Lungs are clear without wheezes or crackles Abdomen NABS soft nontender Extremities with trace edema Results & Data Results & Data Vital Signs (Past 12 Hours) Vital Signs Temp Pulse Pulse Resp BP Pulse Ox Pulse Ox 10/01/23 07:39 98 10/01/23 04:19 98.2 F 71 20 103/62 93 10/01/23 00:26 68 10/01/23 00:22 98.1 F 74 17 102/64 94 09/30/23 21:00 09/30/23 19:48 98.1 F 69 22 120/66 97 O2 Del Method O2 Del Method 10/01/23 07:39 Room Air 10/01/23 04:19 Room Air 10/01/23 00:26 10/01/23 00:22 Room Air 09/30/23 21:00 Room Air 09/30/23 19:48 Room Air Laboratory Results review cbc review chemistry PG Care Time/CCT Total # of Minutes Spent Total Time Spent with Patient: Total time spent is greater than 50% in coordination of care (as documented) at patient's floor/unit and/or counseling patient: Coding Level of Care Code 55754 SUB INP/OBS CARE 2/35MIN Diagnoses New onset of congestive heart failure I50.9 Fall W19.XXXA DM (diabetes mellitus), type 2 E11.9 Suprapubic catheter Z93.59 Acute kidney injury N17.9
[2023-10-01] MEDS: SODIUM CHLORIDE 0.9% 1,000 ML IV SCH (08:08)
--- NOTE | 2023-10-01 10:51 | Cardiology Progress Note ---
Date of Service October 01, 2023 Assessment & Plan (1) Pericardial effusion: Plan: 2. HFpEFpreserved LV function with regional wall motion normalities -- improved congestion 3. New onset atrial fibrillation-- rate controlled, [id number] 5; anticoagulation on hold 4. Type 2 diabetes--A1c 7.9; on insulin 5. 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 History of rectal cancer with colostomy, chronic indwelling Marks 7. Anemia - stable 8. UTI - pseudomonas/klebsiella on cefepime Chest pain improved post drain removal. No congestion on exam today. BUN/SCr tending up. Remains in rate controlled AF - Agree with gentle IV fluids Continue to hold lasix, amlodipine and colchicine. Follow-up cell counts, cytology, cultures Repeat limited echo tomorrow. - If pericardial effusion stable -- can resume anticoagulation. will follow Admission and Anticipated Discharge Date Admission Date: September 27, 2023 Subjective Feeling "weary" but no specific complaints this morning. Up in chair today. Chest pain improved. Mild dyspnea persists. Negative additional 1.3 yesterday Pericardial fluid studies pending. Telemetry reviewed -- remains in rate controlled AF Review of Systems Review of Systems: All systems reviewed & are unremarkable except as noted in HPI & below Physical Exam Physical Exam: General: Comfortable HEENT: Sclerae anicteric Lungs: Clear except for few crackles at LT base. No erythema around prior drain site Cardiac: Irregular irregular, no murmurs. No JVD. Vascular: 2+ radial Abdomen: Soft, nontender, reducible hernia around ostomy Extremities: Well perfused, No significant LE edema Improved LE erythema. Neuro: Nonfocal Psych: Alert orient x3, normal affect and mood Results & Data Vital Signs (Past 12 Hours) Vital Signs Temp Pulse Pulse Resp BP BP Pulse Ox 10/01/23 08:26 67 10/01/23 08:00 97.9 F 10/01/23 08:00 120/59 L 10/01/23 07:40 10/01/23 07:39 10/01/23 07:29 112/53 L 10/01/23 07:29 71 24 92 10/01/23 07:00 64 21 98 10/01/23 04:19 98.2 F 71 20 103/62 93 10/01/23 00:26 68 10/01/23 00:22 98.1 F 74 17 102/64 94 Pulse Ox O2 Del Method O2 Del Method 10/01/23 08:26 10/01/23 08:00 10/01/23 08:00 10/01/23 07:40 Room Air 10/01/23 07:39 98 Room Air 10/01/23 07:29 10/01/23 07:29 10/01/23 07:00 10/01/23 04:19 Room Air 10/01/23 00:26 10/01/23 00:22 Room Air PG Care Time/CCT Total # of Minutes Spent Total Time Spent with Patient: Total time spent is greater than 50% in coordination of care (as documented) at patient's floor/unit and/or counseling patient: Coding Level of Care Code 87632 SUB INP/OBS CARE 2/35MIN Diagnoses Pericardial effusion I31.39
[2023-10-01] MEDS: ONDANSETRON INJ 2 MG/ML 2 ML VIAL IV PRN (12:08)
[2023-10-01 14:17] LABS: Fluid Appearance TURBID; Fluid Basophil % 0 %; Fluid Color RED; Fluid Comment DNR; Fluid Eosinophil % 0 %; Fluid Lymphocytes % 18 %; Fluid Mesothelial % 0 %; Fluid Monocyte/Macrophage % 5 %; Fluid Neutrophil % 77 %; Fluid Total Nucleated Cell Ct 1475 cells/uL; Fluid Type PERICARDIAL FLUID
--- NOTE | 2023-10-01 16:41 | Hospitalist Progress Note ---
Date of Service October 01, 2023 Assessment & Plan (1) New onset of congestive heart failure: Plan: concern for acute systolic and diastolic heart failure Bilateral pitting edema (R > L without DVT present), Possibility related to acute on chronic diastolic heart failure secondary to atrial fibrillation seen at admission, but noted pericardial effusion with Rv impact seen Status post pericardiocentesis on 09/29/23, 500 mL initial drain 150 later. Bloody fluid. Pericardial drain removed 09/30/23 Regarding new onset Atrial fibrillation not sure in permanent or paroxysmal, no need for rate controlling agents at this time considered anticoagulation however with falls. bloody pericardial effusion will continue to hold on anticoagulation Lasix 40mg remains on hold due to CLAYTON on CKD 3 mild troponin elevation likely demand ischemia CT Chest on presentation reveals some nodules, will benefit from repeat CT in 3 months (2) Fall: Plan: [address] head, c-spine, chest, abdomen, pelvis to rule out internal bleeding prior to starting anticoagulation subacute fractures of the anterior right fourth through seventh ribs and the anterior left fifth and sixth ribs edema of RLE, Dopper negative on presentation, urine now did result in Klebsiella and Pseudomonas, >100,000, thus fall maybe metabolic encephalopahty and weakness,\ starting Cefepime, resistent to quinalones, can also consider meropenem PT/OT (3) DM (diabetes mellitus), type 2: Plan: Hemoglobin A1c 7.9 in July On 20 units Lantus QPM and Sitagliptin home medications Previous admission glucose was well-controlled on Lantus 5 units BID therefore continue on this NovoLog: --Goal BSG Range: Low 110 mg/dL, High 140 mg/dL --Correction Factor: 45 mg/dL/unit --Carbohydrate ratio = 15 g/unit --BSGs ACHS if eating, q6h if npo (4) Suprapubic catheter: Plan: Chronic UA shows both Klebsiella and Pseudomonas with different sensitivities and resistance only placed on cefepime therapy close to Zosyn therapy however given these organisms likely will need a few days of intravenous antibiotics in the hospital. Concern of fall could be from metabolic encephalopathy from urinary tract infection present on admission. Plus minus heart failure from his pericardial effusion. (5) Acute kidney injury: Plan: pt with clayton on ckd4, started ivf cautiously on 09/30 as was initially with diastolic hf, this may have been secondary to pericardial effusion with tamponade physiology will follow Cr after on liter Plan Diet - type 2 diabetes, heart healthy, low-sodium 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, this is well functioning Admission and Anticipated Discharge Date Admission Date: September 27, 2023 Results & Data Results & Data Vital Signs (Past 12 Hours) Vital Signs Temp Pulse Resp BP Pulse Ox Pulse Ox O2 Del Method 10/01/23 14:27 97 10/01/23 13:00 65 12 92 10/01/23 12:00 101/47 L 10/01/23 12:00 66 15 98 Room Air 10/01/23 12:00 98.6 F 10/01/23 11:26 122/59 L 10/01/23 11:26 76 20 95 10/01/23 11:00 68 21 99 10/01/23 10:00 76 18 95 10/01/23 09:00 63 32 H 96 10/01/23 08:26 67 10/01/23 08:00 97.9 F 10/01/23 08:00 120/59 L 10/01/23 07:40 Room Air 10/01/23 07:39 98 10/01/23 07:29 112/53 L 10/01/23 07:29 71 24 92 10/01/23 07:00 64 21 98 O2 Del Method 10/01/23 14:27 Room Air 10/01/23 13:00 10/01/23 12:00 10/01/23 12:00 10/01/23 12:00 10/01/23 11:26 10/01/23 11:26 10/01/23 11:00 10/01/23 10:00 10/01/23 09:00 10/01/23 08:26 10/01/23 08:00 10/01/23 08:00 10/01/23 07:40 10/01/23 07:39 Room Air 10/01/23 07:29 10/01/23 07:29 10/01/23 07:00 PG Care Time/CCT Total # of Minutes Spent Total Time Spent with Patient: Total time spent is greater than 50% in coordination of care (as documented) at patient's floor/unit and/or counseling patient: Coding Level of Care Code None Diagnoses New onset of congestive heart failure I50.9 Fall W19.XXXA DM (diabetes mellitus), type 2 E11.9 Suprapubic catheter Z93.59 Acute kidney injury N17.9
[2023-10-02 05:04] LABS: Basophils # (auto) 0.03 K/uL (0.00-0.20); Basophils % (auto) 0.3 %; Eosinophils # (auto) 0.16 K/uL (0.00-0.50); Eosinophils % (auto) 1.8 %; Hematocrit (blood only) 30.5 % (42.0-52.0); Hemoglobin 9.6 g/dl (14.0-18.0); Immature Granulocytes % (auto) 1.1 %; Lymphocytes # (auto) 0.63 K/uL (1.20-3.40); Lymphocytes % (auto) 6.9 %; Mean Corpuscular Hemoglobin 26.6 pg (25.0-34.0); Mean Corpuscular Hgb Conc 31.5 g/dL (32.0-36.0); Mean Corpuscular Volume 84.5 fL (80.0-100.0); Mean Platelet Volume 10.7 fL (9.4-12.4); Monocytes # (auto) 0.71 K/uL (0.11-0.59); Monocytes % (auto) 7.8 %; Neutrophils # (auto) 7.44 K/uL (1.40-6.50); Neutrophils % (auto) 82.1 %; Platelet Count 228 K/uL (130-400); RDW Coefficient of Variation 15.9 % (11.5-14.5); RDW Standard Deviation 49.5 fL (36.4-46.3); Red Blood Count 3.61 M/uL (4.70-6.10); White Blood Count 9.07 K/ul (4.8-10.8)
[2023-10-02 05:14] LABS: BUN Creatinine Ratio 21.5 (10-20); Calcium 8.2 mg/dl (8.6-10.3); Creatinine Clr Calc Pharmacy 17.2 ml/min; Est GFR (African American) 19.3 ml/min; Est GFR (Non-African American) 16.7 ml/min; Potassium 4.4 mmol/L (3.5-5.1)
--- NOTE | 2023-10-02 08:02 | Hospitalist Progress Note ---
Date of Service October 02, 2023 Assessment & Plan (1) Acute kidney injury: Plan: pt with clayton on ckd4, started ivf cautiously on 09/30 as was initially with diastolic hf, this may have been secondary to pericardial effusion with tamponade physiology continue elevation of BUN/Cr despite gentle hydration and holding lasix, concern if azotemia from Cefepime, will stop cefepime and change to zosyn, with pharmacy renal dosing nephrology consult (2) New onset of congestive heart failure: Plan: concern for acute systolic and diastolic heart failure Bilateral pitting edema (R > L without DVT present), Possibility related to acute on chronic diastolic heart failure secondary to atrial fibrillation seen at admission, but noted pericardial effusion with Rv impact seen Status post pericardiocentesis on 09/29/23, 500 mL initial drain 150 later. Bloody fluid. Pericardial drain removed 09/30/23 Regarding new onset Atrial fibrillation not sure in permanent or paroxysmal, no need for rate controlling agents at this time considered anticoagulation however with falls. bloody pericardial effusion will continue to hold unitl cardiology feels comfortable Lasix 40mg remains on hold due to CLAYTON on CKD 4 mild troponin elevation likely demand ischemia CT Chest on presentation reveals some nodules, will benefit from repeat CT in 3 months (3) Fall: Plan: [address] head, c-spine, chest, abdomen, pelvis to rule out internal bleeding prior to starting anticoagulation subacute fractures of the anterior right fourth through seventh ribs and the anterior left fifth and sixth ribs edema of RLE, Dopper negative on presentation, urine now did result in Klebsiella and Pseudomonas, >100,000, thus fall maybe metabolic encephalopahty and weakness,\ starting Cefepime, resistent to quinalones, can also consider meropenem PT/OT (4) DM (diabetes mellitus), type 2: Plan: Hemoglobin A1c 7.9 in July On 20 units Lantus QPM and Sitagliptin home medications Previous admission glucose was well-controlled on Lantus 5 units BID therefore continue on this NovoLog: --Goal BSG Range: Low 110 mg/dL, High 140 mg/dL --Correction Factor: 45 mg/dL/unit --Carbohydrate ratio = 15 g/unit --BSGs ACHS if eating, q6h if npo (5) Suprapubic catheter: Plan: Chronic UA shows both Klebsiella and Pseudomonas with different sensitivities and resistance only placed on cefepime therapy close to Zosyn therapy however given these organisms likely will need a few days of intravenous antibiotics in the hospital. Concern of fall could be from metabolic encephalopathy from urinary tract infection present on admission. Plus minus heart failure from his pericardial effusion. Plan Diet - type 2 diabetes, heart healthy, low-sodium 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, this is well functioning Admission and Anticipated Discharge Date Admission Date: September 27, 2023 Subjective Pt does have both the Klebsiella and Pseudomonas UTI. His pericardial drain was removed 09/30/23. By cardiology. repeat echo 09/29 did show some loculated effusion but improved hemodynamics cardiology repeating another results pending does have some clayton, no further pain or dizziness Physical Exam Physical Exam: Awake alert and appropriate. Cardiac exam is regular, drain is removed. some sub xyphoid pain but does also have rib fractures Lungs are clear without wheezes or crackles Abdomen NABS soft nontender Extremities with trace edema Results & Data Results & Data Vital Signs (Past 12 Hours) Vital Signs Pulse Resp BP Pulse Ox Pulse Ox O2 Del Method O2 Del Method 10/02/23 06:00 65 18 92 10/02/23 06:00 119/64 10/02/23 05:00 114/60 10/02/23 05:00 62 9 L 94 10/02/23 04:00 61 15 96 10/02/23 03:00 88/45 L 10/02/23 03:00 70 8 L 90 10/02/23 02:00 102/53 L 10/02/23 02:00 68 10 L 95 10/02/23 01:00 85/45 L 10/02/23 01:00 72 19 93 10/02/23 00:41 93 Room Air 10/02/23 00:00 64 10/02/23 00:00 88/46 L 10/02/23 00:00 62 13 92 10/01/23 23:30 96/55 L 10/01/23 23:30 63 28 H 89 L 10/01/23 23:00 68 10 L 93 10/01/23 22:00 53 L 13 96 10/01/23 21:00 64 13 96 10/01/23 20:00 109/56 L 10/01/23 20:00 71 19 95 10/01/23 20:00 Room Air Laboratory Results review cbc review chemistry PG Care Time/CCT Total # of Minutes Spent Total Time Spent with Patient: Total time spent is greater than 50% in coordination of care (as documented) at patient's floor/unit and/or counseling patient: Coding Level of Care Code 51663 SUB INP/OBS CARE 2/35MIN Diagnoses Acute kidney injury N17.9 New onset of congestive heart failure I50.9 Fall W19.XXXA DM (diabetes mellitus), type 2 E11.9 Suprapubic catheter Z93.59
[2023-10-02] MEDS: SODIUM CHLORIDE 0.9% 1,000 ML IV SCH (08:57)
[2023-10-02] MEDS: PIPER/TAZO 4.5g in D5W MINI-B 100 ML IV ONE (08:57)
--- NOTE | 2023-10-02 09:36 | Nephrology Consultation ---
Date of Consultation October 02, 2023 Assessment & Plan (1) Acute kidney injury: * CLAYTON likely on the basis of impaired renal perfusion associated w/ pericardial effusion, cystitis * BP has improved following pericardiocentesis * Noncontrast abdominal CT 09/27/23 negative for obstruction * No recent exposure to known nephrotoxic agents * Patient remains nonoliguric. Volume status and electrolyte balance are acceptable. No acute indication for HD. Rate of increase in creatinine appears to be slowing * Agree w/ gentle hydration * Monitor PRP (2) Chronic kidney disease, stage 4 (severe): * CKD stage G4/A3 (advanced impairment) w/ baseline Cr 2.1, EGFR 27 cc/min due to microvascular disease, DKD (3) Pericardial effusion: * 09/29/23 echocardiogram: LVEF 40-45%, effusion w/ tamponade physiology * s/p pericardiocentesis 09/28. Prelim cx - NGTD. Cytology pending (4) Acute UTI (urinary tract infection): * Klebsiella/Pseudomonas UTI - on IV Zosyn * Recommend consultation w/ Urology Tuesday to change out suprapubic catheter (5) New onset atrial fibrillation: * Rate has been controlled * May require anticoagulation. Need to weigh risk/benefit given h/o frequent falls History of Present Illness Reason for Consultation: CLAYTON/CKD Attending Physician: Avelino Llanos MD History of Present Illness Mr. Bhakta is an 83 year old white male who is seen at the request of [facility] Hospitalist Service for evaluation of CLAYTON/CKD. Information for the HPI is obtained from direct patient interview and review of the EMR. Mr. Bhakta has CKD stage G4/A3 (advanced impairment) w/ baseline Cr 2.1, EGFR 27 cc/min due to microvascular disease, DKD. 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 Mr. Bhakta was admitted 09/27/23. He had fallen while hiking alone in the car. He was found approximately 6 hours later and brought to the [facility] where he was noted to have new onset atrial fibrillation, a pericardial effusion with early tamponade physiology, RLE swelling and Klebsiella/Pseudomonas UTI. At the time of his admission he was hypotensive w/ SBP 80's. Mr. Bhakta underwent pericardiocentesis 09/29/23 for 450 cc volume removal. He reports that the drain was just recently removed. Since admission Mr. Bhakta has diuresed 3.8L. His LE swelling has resolved. Cr has risen to 3.25. Allergies Allergy/AdvReac Type Severity Reaction Status Date / Time atorvastatin [From Lipitor] Allergy Unknown Verified 09/15/23 14:16 Home Medications Medication Instructions Recorded Confirmed Type ferrous sulfate 325 mg (65 mg 325 mg PO QAM 02/24/18 09/27/23 History iron) tablet rosuvastatin 10 mg tablet 10 mg PO HS 02/24/18 09/27/23 History cyanocobalamin (vitamin B-12) 1,000 mcg PO DAILY 12/19/19 09/27/23 History 1,000 mcg tablet (Vitamin B-12) cholecalciferol (vitamin D3) 25 2,000 unit PO DAILY #180 tabs 04/25/20 09/27/23 Rx mcg (1,000 unit) tablet (Vitamin D3) amlodipine 2.5 mg tablet 2.5 mg PO DAILY #90 tabs 09/25/21 09/27/23 Rx mupirocin 2 % topical ointment 1 applic topical TID 04/18/23 09/27/23 History trospium 60 mg capsule,extended 60 mg PO DAILYBB 04/18/23 09/27/23 History release 24 hr Tylenol See Rx Instructions .Route 09/27/23 09/27/23 History .COMPLEX PRN Pain insulin glargine 100 unit/mL (3 20 unit subcut PM 09/27/23 09/27/23 History mL) subcutaneous pen (Basaglar KwikPen U-100 Insulin) sitagliptin phosphate 50 mg tablet 50 mg PO DAILY 09/27/23 09/27/23 History (Januvia) Patient History Medical History (Updated 10/02/23 @ 11:24 by Ge Fall MD) Jewell UTI DM (diabetes mellitus), type 2 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 Anemia Vitamin D deficiency Diabetes Chronic kidney disease, stage III (moderate) Syncope and collapse Rectal cancer (06/17/17) "Rectal bleeding Status post colonoscopy and biopsy 06/17/2017 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 Plan for combined radiation and chemotherapy followed by possible resection Status post completion of combined radiation and chemotherapy August 30, 2017." On 07/07/17 13:09 Felicia Maggie Hannon wrote "Rectal bleeding Status post colonoscopy and biopsy 06/17/2017 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 Plan for combined radiation and chemotherapy followed by possible resection" Pre-syncope Obstructive uropathy Diarrhea Surgical History Previous back surgery Family History Other Family history non-contributory Social History Smoking Status: Never smoker Hx Alcohol Use: No Hx Substance Use: No Preferred Language: Northern Irish Communication Ability: Effective Visual Impairment: No Limitations 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: Normal [place] Required: No Beliefs That Will Affect Care: None marital status: / Current Living Situation: Alone Current Living Situation Comment: home current occupational status: retired Other Information That Helps Us Care for You: No Feels Safe at Home: Yes Safety Concerns: Feels Safe At This Time Assistive Devices: None Review of Systems Constitutional: no fever Eyes: no problem reported Ear, Nose, Mouth, Throat: no problem reported Respiratory: no cough and no dyspnea Cardiovascular: no chest pain Gastrointestinal: no abdominal pain, no nausea, no vomiting and no diarrhea/loose stools Physical Exam Constitutional: not in distress Eyes: PERRL, conjunctivae normal, anicteric sclerae ENMT: external ear and nose normal, oropharynx normal Neck: trachea midline, no thyromegaly Respiratory: normal respiratory effort, lungs clear to auscultation Cardiovascular: Rate/Rhythm: + irregularly irregular Gastrointestinal (Abdomen): normal bowel sounds, soft, nontender, no hepatosplenomegaly Skin: no rashes, warm and dry Neurologic: Speech / Cognition: normal speech and normal cognition Psychiatric: Affect: euthymic affect Genitourinary: suprapubic catheter in place draining clear, yellow urine Results & Data Vital Signs (Past 12 Hours) Vital Signs Temp Pulse Resp BP Pulse Ox Pulse Ox O2 Del Method 10/02/23 09:12 135/73 10/02/23 09:12 76 17 92 10/02/23 09:11 74 23 95 Room Air 10/02/23 08:47 122/64 10/02/23 08:47 69 20 96 10/02/23 08:32 70 10/02/23 08:29 36.6 C 10/02/23 08:00 68 21 93 Room Air 10/02/23 08:00 144/65 H 10/02/23 08:00 Room Air 10/02/23 07:00 93 10/02/23 07:00 61 95 10/02/23 07:00 143/54 H 10/02/23 06:00 65 18 92 10/02/23 06:00 119/64 10/02/23 05:00 114/60 10/02/23 05:00 62 9 L 94 10/02/23 04:00 61 15 96 10/02/23 03:00 88/45 L 10/02/23 03:00 70 8 L 90 10/02/23 02:00 102/53 L 10/02/23 02:00 68 10 L 95 10/02/23 01:00 85/45 L 10/02/23 01:00 72 19 93 10/02/23 00:41 93 10/02/23 00:00 64 10/02/23 00:00 88/46 L 10/02/23 00:00 62 13 92 10/01/23 23:30 96/55 L 10/01/23 23:30 63 28 H 89 L 10/01/23 23:00 68 10 L 93 10/01/23 22:00 53 L 13 96 O2 Del Method 10/02/23 09:12 10/02/23 09:12 10/02/23 09:11 10/02/23 08:47 10/02/23 08:47 10/02/23 08:32 10/02/23 08:29 10/02/23 08:00 10/02/23 08:00 10/02/23 08:00 10/02/23 07:00 Room Air 10/02/23 07:00 10/02/23 07:00 10/02/23 06:00 10/02/23 06:00 10/02/23 05:00 10/02/23 05:00 10/02/23 04:00 10/02/23 03:00 10/02/23 03:00 10/02/23 02:00 10/02/23 02:00 10/02/23 01:00 10/02/23 01:00 10/02/23 00:41 Room Air 10/02/23 00:00 10/02/23 00:00 10/02/23 00:00 10/01/23 23:30 10/01/23 23:30 10/01/23 23:00 10/01/23 22:00 Laboratory Results Laboratory Results WBC 9.07 K/ul (4.8-10.8) 10/02/23 04:26 RBC 3.61 M/uL (4.70-6.10) L 10/02/23 04:26 Hgb 9.6 g/dl (14.0-18.0) L 10/02/23 04:26 Hct 30.5 % (42.0-52.0) L 10/02/23 04:26 MCV 84.5 fL (80.0-100.0) 10/02/23 04:26 MCH 26.6 pg (25.0-34.0) 10/02/23 04:26 MCHC 31.5 g/dL (32.0-36.0) L 10/02/23 04:26 RDW Std Deviation 49.5 fL (36.4-46.3) H 10/02/23 04:26 RDW Coeff of Timote[place] 15.9 % (11.5-14.5) H 10/02/23 04:26 Plt Count 228 K/uL (130-400) 10/02/23 04:26 MPV 10.7 fL (9.4-12.4) 10/02/23 04:26 Immature Gran % (Auto) 1.1 % 10/02/23 04:26 Neut % (Auto) 82.1 % 10/02/23 04:26 Lymph % (Auto) 6.9 % 10/02/23 04:26 [place] % (Auto) 7.8 % 10/02/23 04:26 Eos % (Auto) 1.8 % 10/02/23 04:26 Baso % (Auto) 0.3 % 10/02/23 04:26 Neut # (Auto) 7.44 K/uL (1.40-6.50) H 10/02/23 04:26 Lymph # (Auto) 0.63 K/uL (1.20-3.40) L 10/02/23 04:26 [place] # (Auto) 0.71 K/uL (0.11-0.59) H 10/02/23 04:26 Eos # (Auto) 0.16 K/uL (0.00-0.50) 10/02/23 04:26 Baso # (Auto) 0.03 K/uL (0.00-0.20) 10/02/23 04:26 Immature Gran # (Auto) 0.10 K/uL (0.01-0.20) 10/02/23 04:26 PT 12.0 Seconds (9.0-12.0) 09/29/23 07:30 INR 1.1 (0.9-1.1) 09/29/23 07:30 APTT 33 Seconds (21-31) H 09/29/23 07:30 PTT Ratio 1.2 09/29/23 07:30 Sodium 135 mmol/L (136-145) L 10/02/23 04:26 Potassium 4.4 mmol/L (3.5-5.1) 10/02/23 04:26 Chloride 105 mmol/L (98-107) 10/02/23 04:26 Carbon Dioxide 20 mmol/L (21-32) L 10/02/23 04:26 Anion Gap 10 (3-11) 10/02/23 04:26 BUN 70 mg/dl (6-23) H 10/02/23 04:26 Creatinine 3.25 mg/dl (0.6-1.4) H 10/02/23 04:26 Est Cr Clr Drug Dosing 17.2 ml/min 10/02/23 04:26 Est GFR ( Amer) 19.3 ml/min 10/02/23 04:26 Est GFR (Non-Af Amer) 16.7 ml/min 10/02/23 04:26 BUN/Creatinine Ratio 21.5 (10-20) H 10/02/23 04:26 Glucose 92 mg/dl (70-99(Fasting)) 10/02/23 04:26 POC Glucose 89 mg/dl (70-99) 10/02/23 07:13 Calcium 8.2 mg/dl (8.6-10.3) L 10/02/23 04:26 Magnesium 2.0 mg/dl (1.7-2.4) 10/02/23 04:26 Total Bilirubin 0.4 mg/dl (0.2-1.0) 09/27/23 14:40 AST 13 U/L (13-39) 09/27/23 14:40 ALT 10 U/L (7-52) 09/27/23 14:40 Alkaline Phosphatase 115 U/L (34-104) H 09/27/23 14:40 Total Creatine Kinase 51 U/L (30-223) 09/27/23 14:40 Troponin I High Sens 26.2 pg/ml (0-20) H 09/27/23 16:35 Total Protein 7.5 gm/dl (6.0-8.3) 09/27/23 14:40 Albumin 3.8 gm/dl (3.4-5.0) 09/27/23 14:40 Globulin 3.7 gm/dl (2.5-4.0) 09/27/23 14:40 Albumin/Globulin Ratio 1.0 (0.9-2) 09/27/23 14:40 TSH 1.483 uIu/ml (0.300-4.500) 09/27/23 16:35 Urine Color Yellow 09/27/23 Unknown Urine Appearance Clear (Clear) 09/27/23 Unknown Urine pH 5.5 (4.5-7.5) 09/27/23 Unknown Ur Specific [place] 1.008 (1.000-1.030) 09/27/23 Unknown Urine Protein 2+ (Negative) H 09/27/23 Unknown Urine Glucose (UA) Negative (Negative) 09/27/23 Unknown Urine Ketones Negative (Negative) 09/27/23 Unknown Urine Blood Negative (Negative) 09/27/23 Unknown Urine Nitrite Negative (Negative) 09/27/23 Unknown Urine Bilirubin Negative (Negative) 09/27/23 Unknown Urine Urobilinogen Negative (Negative) 09/27/23 Unknown Ur Leukocyte Esterase 2+ (Negative) H 09/27/23 Unknown Urine WBC (Auto) 21-50 /hpf (0-5) H 09/27/23 Unknown Urine RBC (Auto) 0-2 /hpf (0-2) 09/27/23 Unknown U Hyaline Cast (Auto) 3-5 /lpf (0-2) H 09/27/23 Unknown U Epithel Cells (Auto) 0-2 /hpf (0-2) 09/27/23 Unknown Urine Bacteria (Auto) 4+ (None Seen) H 09/27/23 Unknown Ur Random Creatinine 16.7 mg/dl 09/27/23 Unknown U Random Total Protein 94.3 mg/dl (0-11.9) H 09/27/23 Unknown Protein/Creatinin Ratio 5.6 (0-0.2) H 09/27/23 Unknown Fluid Type PERICARDIAL FLUID 09/29/23 15:15 Fluid Color RED 09/29/23 15:15 Fluid Appearance TURBID 09/29/23 15:15 Fld Tot Nucleated Cell 1475 cells/uL 09/29/23 15:15 Fluid Neutrophils % 77 % 09/29/23 15:15 Fluid Lymphocytes % 18 % 09/29/23 15:15 Fluid Eosinophils % 0 % 09/29/23 15:15 Fluid Basophils % 0 % 09/29/23 15:15 Fl Monocyt/Macrophag % 5 % 09/29/23 15:15 Fld Mesothelial Cell % 0 % 09/29/23 15:15 Fluid Comment 2 DNR 09/29/23 15:15 Nasal Screen MRSA (PCR) Negative (Negative) 09/29/23 16:35 Impressions Venous Doppler Study 09/27/23 14:14 US venous doppler LE RT CLINICAL HISTORY: R leg edema TECHNIQUE: Right lower extremity real-time compression venous ultrasound with Color Doppler imaging. Utilizing real-time ultrasonic imaging multiple real time high-resolution ultrasonic images with compression and noncompression maneuvers of the deep venous system in addition to color doppler imaging were performed from the common femoral vein through the proximal calf veins. COMPARISON: Comparison is made to ultrasound 02/10/2021 FINDINGS/IMPRESSION: Currently there is normal compressibility of the deep venous system from the common femoral vein through the proximal calf veins. Soft tissue edema is noted in the calf. ACT 112: Negative or not required by law. Electronically signed by: Hector Weinstein M.D. 09/27/2023 3:15 PM Chest X-Ray 09/27/23 14:19 XR chest 1V portable CLINICAL HISTORY: fall 11 days ago, upper R rib pain TECHNIQUE: Single frontal radiograph of the chest was obtained. Comparison: Comparison is made to chest radiograph 03/01/2020 FINDINGS: No lines and tubes are seen. Cardiomegaly is noted. Prominence and cephalization of the vasculature is seen. No evidence of pleural effusion or pneumothorax. Old healed right rib fractures are seen. IMPRESSION: Cardiomegaly and mild pulmonary edema. ACT 112: Negative or not required by law. Electronically signed by: Hector Weinstein M.D. 09/27/2023 2:[address] 09/27/23 17:28 CT OF THE HEAD WITHOUT CONTRAST CLINICAL HISTORY: head trauma COMPARISON STUDY: Head CT March 01, 2020. TECHNIQUE: Helical axial images of the head were obtained without IV contrast. Automated exposure control was utilized for the study. A dose lowering technique was utilized adhering to the principles of ALARA. FINDINGS: No acute intracranial hemorrhage, midline shift or mass effect is present. The ventricular system is unremarkable. The basal cisterns are patent. No extra-axial collections are present. There are no findings to suggest acute dural sinus thrombosis or acute territorial infarct. There are no calvarial fractures. There are age indeterminate mildly displaced bilateral nasal bone fractures. IMPRESSION: 1. No acute intracranial findings. 2. No calvarial fractures. 3. Age indeterminate mildly displaced bilateral nasal bone fractures. ACT 112: Negative or not required by law. Electronically signed by: Rupesh Martell M.D. 09/27/2023 6:[address] 09/27/23 17:31 CT OF THE CERVICAL SPINE WITHOUT CONTRAST CLINICAL HISTORY: fall 10 days ago, neck pain COMPARISON STUDY: Cervical spine CT August 17, 2017. TECHNIQUE: Helical axial images of the cervical spine were obtained without IV contrast. Sagittal and coronal reconstructions were viewed. Automated exposure control was utilized for the study. A dose lowering technique was utilized adhering to the principles of ALARA. FINDINGS: Alignment of the cervical spine is anatomic. Vertebral body heights are maintained. No acute cervical spine fracture or subluxation is present. There is no prevertebral edema. Facet joints are intact. Fusion of C3 on C4 is again noted. Moderate multilevel degenerative disc disease and facet arthrosis is present. IMPRESSION: No acute cervical spine fracture or subluxation. ACT 112: Negative or not required by law. Electronically signed by: Rupesh Martell M.D. 09/27/2023 6:15 PM Abdomen/Pelvis CT 09/27/23 17:32 CT OF THE ABDOMEN AND PELVIS WITHOUT CONTRAST CLINICAL HISTORY: fall 10 days ago, ongoing abdominal pain COMPARISON STUDY: CT of the abdomen and pelvis January 24, 2023. MRI of the abdomen and pelvis August 02, 2023. TECHNIQUE: Axial images of the abdomen and pelvis were obtained without IV contrast. Images were reviewed in the axial, sagittal, and coronal planes. Automated exposure control was utilized for the study. A dose lowering tech nique was utilized adhering to the principles of ALARA. FINDINGS: Please note that the chest CT will be reported separately. No hemoperitoneum or pneumoperitoneum is present. Cardiomegaly and moderate pericardial effusion are unchanged. Evaluation of the solid abdominal viscera is suboptimal on this unenhanced exam. Liver, spleen, adrenal glands, kidneys and pancreas are similar in appearance to prior CT. Urothelial thickening of the bilateral renal pelves and proximal ureters remains unchanged. Prostate is markedly enlarged, unchanged. A suprapubic catheter is in place. Status post rectal resection. Irregular presacral density remains unchanged. This favors postsurgical change. No pathologically enlarged abdominal or pelvic lymph nodes are present. A small amount of fluid within the pelvis is present. There is no fluid collection. 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 Several loops of mildly dilated small bowel are present within the hernia sac. No acute fractures within the lumbar spine, pelvis or hips are identified. IMPRESSION: 1. No acute traumatic findings within the abdomen or pelvis on unenhanced exam. 2. 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 Several loops of mildly dilated small bowel. A partial small bowel obstruction would be difficult to exclude. 3. No change in urothelial thickening of the bilateral renal pelves and proximal ureters. Prostatomegaly, unchanged. No hydronephrosis. ACT 112: Negative or not required by law. Electronically signed by: Rupesh Martell M.D. 09/27/2023 6:[address] 09/27/23 17:32 CT OF THE CHEST WITHOUT IV CONTRAST CLINICAL HISTORY: anterior chest wall pain, trauma. Fall 10 days ago. COMPARISON STUDY: Chest CT July 20, 2023. Chest radiograph performed earlier today. TECHNIQUE: Axial images of the chest were obtained without IV contrast. Images were reviewed in the axial, sagittal, and coronal planes. IV contrast was not administered for this examination. Automated exposure control was utilized for the study. A dose lowering technique was utilized adhering to the principles of ALARA. FINDINGS: Thoracic aorta is suboptimally assessed on this unenhanced exam but there is no mediastinal hematoma. Cardiomegaly and moderate sized pericardial effusion are unchanged since CT of 07/20/2023. There is a trace right pleural effusion. There is no pneumothorax. Several nodular opacities within the lower lobes are noted, the largest of which is a 9 mm left lower lobe nodule on image 111 of 253. This is new since CT of July 20, 2023. There are also groundglass opacities within the lower lobes. Multiple old bilateral rib fractures are present. There are probable subacute fractures of the anterior right fourth through seventh ribs and the anterior left fifth and sixth ribs. No thoracic spine fractures are present. There is extensive anterior osteophytosis of the thoracic spine. Abdomen and pelvis CT will be reported separately. IMPRESSION: 1. No pneumothorax. Subacute appearing fractures of the anterior right fourth through seventh ribs and the anterior left fifth and sixth ribs. Numerous old bilateral rib fractures. 2. Trace right pleural effusion. 3. Cardiomegaly and a moderate pericardial effusion, unchanged since CT of July 20, 2023. 4. Several nodular opacities within the lower lobes and groundglass opacities, new since prior chest CT. These favor a mild infectious process although are indeterminate. A follow-up chest CT in 3 months to ensure resolution is recommended. ACT 112: Negative or not required by law. Electronically signed by: Rupesh Martell M.D. 09/27/2023 6:25 PM PG Care Time/CCT Total # of Minutes Spent Total Time Spent with Patient: Total time spent is greater than 50% in coordination of care (as documented) at patient's floor/unit and/or counseling patient: Coding Level of Care Code 08708 IN/OBS CONSULT LVL 5,80M Diagnoses Acute kidney injury N17.9 Chronic kidney disease, stage 4 (severe) N18.4 Pericardial effusion I31.39 Acute UTI (urinary tract infection) N39.0 New onset atrial fibrillation I48.91
[2023-10-02 12:56] LABS: Appearance Urine Turbid (Clear); Bacteria Urine Automated None Seen (None Seen); Bilirubin Urine Negative (Negative); Blood Urine 1+ (Negative); Color Urine Yellow; Glucose Urine UA Negative (Negative); Ketones Urine Negative (Negative); Leukocyte Esterase Urine 3+ (Negative); Nitrite Urine Positive (Negative); Protein Urine 3+ (Negative); Specific Gravity Urine 1.015 (1.000-1.030); Urobilinogen Urine Negative (Negative); WBC Urine Automated >50 /hpf (0-5)
[2023-10-02 12:59] LABS: Cast Urine Automated 0-2 /lpf (0-2)
--- NOTE | 2023-10-02 16:05 | Cardiology Progress Note ---
Date of Service October 02, 2023 Assessment & Plan (1) Pericardial effusion: Plan: 2. HFpEFpreserved LV function with regional wall motion normalities -- improved congestion 3. New onset atrial fibrillation-- rate controlled, [id number] 5; anticoagulation on hold 4. Type 2 diabetes--A1c 7.9; on insulin 5. Stage III-IV CKD--baseline SCr 2.1; --> CLAYTON SCr 3.25 6. History of rectal cancer with colostomy, chronic indwelling Marks 7. Anemia 8. UTI - pseudomonas/klebsiella on zosyn Small Pericardial effusion stable on echo. No plans for additional intervention. No edema on exam. BUN/SCr slight increase from yesterday Hb down to 9.6 today Remains in rate controlled AF - Agree with gentle IV fluids Continue to hold lasix, amlodipine and colchicine. Follow-up cytology, cultures Plan on f/up echo in 1 week as an outpatient. - OK to continue to hold anticoagulation for now. will follow Admission and Anticipated Discharge Date Admission Date: September 27, 2023 Subjective Feeling well today. No chest pain. No other new concerns. Tele reviewed -- remains in rate controlled AF. No events. Echo reviewed -- pericardial effusion stable. No RV collapse Review of Systems Review of Systems: All systems reviewed & are unremarkable except as noted in HPI & below Physical Exam Physical Exam: General: Comfortable HEENT: Sclerae anicteric Lungs: Clear anteriorly No erythema around prior drain site Cardiac: Irregular irregular, no murmurs. No JVD. Vascular: 2+ radial Abdomen: Soft, nontender, reducible hernia around ostomy Extremities: Well perfused, No significant LE edema Neuro: Nonfocal Psych: Alert orient x3, normal affect and mood Results & Data Vital Signs (Past 12 Hours) Vital Signs Temp Pulse Resp BP Pulse Ox Pulse Ox O2 Del Method 10/02/23 12:00 118/59 L 10/02/23 12:00 68 21 97 Room Air 10/02/23 11:00 64 24 96 10/02/23 11:00 109/74 10/02/23 10:00 61 23 93 10/02/23 10:00 112/60 10/02/23 09:12 135/73 10/02/23 09:12 76 17 92 10/02/23 09:11 74 23 95 Room Air 10/02/23 08:47 122/64 10/02/23 08:47 69 20 96 10/02/23 08:32 70 10/02/23 08:29 97.9 F 10/02/23 08:00 68 21 93 Room Air 10/02/23 08:00 144/65 H 10/02/23 08:00 Room Air 10/02/23 07:00 93 10/02/23 07:00 61 95 10/02/23 07:00 143/54 H 10/02/23 06:00 65 18 92 10/02/23 06:00 119/64 10/02/23 05:00 114/60 10/02/23 05:00 62 9 L 94 O2 Del Method 10/02/23 12:00 10/02/23 12:00 10/02/23 11:00 10/02/23 11:00 10/02/23 10:00 10/02/23 10:00 10/02/23 09:12 10/02/23 09:12 10/02/23 09:11 10/02/23 08:47 10/02/23 08:47 10/02/23 08:32 10/02/23 08:29 10/02/23 08:00 10/02/23 08:00 10/02/23 08:00 10/02/23 07:00 Room Air 10/02/23 07:00 10/02/23 07:00 10/02/23 06:00 10/02/23 06:00 10/02/23 05:00 10/02/23 05:00 PG Care Time/CCT Total # of Minutes Spent Total Time Spent with Patient: Total time spent is greater than 50% in coordination of care (as documented) at patient's floor/unit and/or counseling patient: Coding Level of Care Code 79799 SUB INP/OBS CARE 3/50MIN Diagnoses Pericardial effusion I31.39
--- NOTE | 2023-10-02 16:23 | XCELERA ---
[id number] \\[id number]
[2023-10-02] MEDS: PIPERACILLIN/TAZOBACTAM 4.5 GM in DEXTROSE 5% MINI-B 100 ML IV SCH (16:47)
[2023-10-03 04:32] LABS: BUN Creatinine Ratio 21.2 (10-20); Creatinine Clr Calc Pharmacy 16.7 ml/min; Est GFR (African American) 18.6 ml/min; Est GFR (Non-African American) 16.1 ml/min; Potassium 4.1 mmol/L (3.5-5.1)
[2023-10-03 04:47] LABS: Hematocrit (blood only) 28.4 % (42.0-52.0); Hemoglobin 8.9 g/dl (14.0-18.0); Mean Corpuscular Hemoglobin 26.8 pg (25.0-34.0); Mean Corpuscular Hgb Conc 31.3 g/dL (32.0-36.0); Mean Corpuscular Volume 85.5 fL (80.0-100.0); Mean Platelet Volume 10.7 fL (9.4-12.4); Platelet Count 245 K/uL (130-400); RDW Coefficient of Variation 15.9 % (11.5-14.5); RDW Standard Deviation 49.7 fL (36.4-46.3); Red Blood Count 3.32 M/uL (4.70-6.10); White Blood Count 8.46 K/ul (4.8-10.8)
[2023-10-03 04:52] LABS: Ferritin 330.7 ng/ml (8-388)
[2023-10-03] MEDS: POLYETHYLENE (MIRALAX) 17 GM PACK PO PRN (06:51)
[2023-10-03] MEDS: SODIUM CHLORIDE 0.9% 1,000 ML IV SCH (08:20)
--- NOTE | 2023-10-03 08:31 | Nephrology Progress Note ---
Date of Service October 03, 2023 Assessment & Plan (1) Acute kidney injury: Plan: * [place] likely on the basis of impaired renal perfusion associated w/ pericardial effusion, cystitis * BP has improved following pericardiocentesis * Noncontrast abdominal CT 09/27/23 negative for obstruction * No recent exposure to known nephrotoxic agents * Patient remains nonoliguric. Volume status and electrolyte balance are acceptable. No acute indication for HD. Rate of increase in creatinine appears to be slowing * Agree w/ gentle hydration. Patient remains net -2 L since admission * Monitor PRP (2) Chronic kidney disease, stage 4 (severe): Plan: * CKD stage G4/A3 (advanced impairment) w/ baseline Cr 2.1, EGFR 27 cc/min due to microvascular disease, DKD (3) Pericardial effusion: Plan: * 09/29/23 echocardiogram: LVEF 40-45%, effusion w/ tamponade physiology * s/p pericardiocentesis 09/28. Prelim cx - NGTD. Cytology pending (4) Acute UTI (urinary tract infection): Plan: * Klebsiella/Pseudomonas UTI - on IV Zosyn * Consultation w/ Urology requested to consider change out of suprapubic catheter due to infection (5) New onset atrial fibrillation: Plan: * Rate has been controlled * May require anticoagulation. Need to weigh risk/benefit given h/o frequent falls (6) Anemia: Plan: * 10/03/23 iron saturation 12%, ferritin 330.7 * On oral iron therapy Admission and Anticipated Discharge Date Admission Date: September 27, 2023 Subjective Mr. Bhakta was evaluated in his hospital room this morning. He c/o weakness but denies fever, angina, dyspnea or flank discomfort. Suprapubic catheter is in place draining clear yellow urine Review of Systems Constitutional: no fever Eyes: no problem reported Ear, Nose, Mouth, Throat: no problem reported Respiratory: no cough and no dyspnea Cardiovascular: no chest pain Gastrointestinal: no abdominal pain, no nausea, no vomiting and no diarrhea/loose stools Physical Exam Constitutional: not in distress Eyes: PERRL, conjunctivae normal, anicteric sclerae ENMT: external ear and nose normal, oropharynx normal Neck: trachea midline, no thyromegaly Respiratory: normal respiratory effort, lungs clear to auscultation Cardiovascular: Rate/Rhythm: + irregularly irregular Gastrointestinal (Abdomen): normal bowel sounds, soft, nontender, no hepatosplenomegaly Skin: no rashes, warm and dry Neurologic: Speech / Cognition: normal speech and normal cognition Psychiatric: Affect: euthymic affect Results & Data Vital Signs (Past 12 Hours) Vital Signs Temp Pulse Resp BP Pulse Ox Pulse Ox O2 Del Method 10/03/23 07:00 97 Room Air 10/03/23 06:00 105/54 L 10/03/23 06:00 56 L 12 96 10/03/23 05:00 123/66 10/03/23 05:00 53 L 10 L 96 10/03/23 04:00 36.6 C 10/03/23 04:00 56 L 22 90 10/03/23 04:00 108/50 L 10/03/23 03:00 62 15 90 10/03/23 03:00 106/49 L 10/03/23 02:00 105/51 L 10/03/23 02:00 53 L 14 94 10/03/23 01:00 97/57 L 10/03/23 01:00 59 L 14 94 10/03/23 00:00 56 L 10/03/23 00:00 36.6 C 10/03/23 00:00 94/60 L 10/03/23 00:00 53 L 14 94 10/02/23 23:22 96 Room Air 10/02/23 23:00 106/50 L 10/02/23 23:00 54 L 7 L 95 10/02/23 22:00 61 7 L 94 10/02/23 22:00 98/48 L 10/02/23 21:00 114/66 10/02/23 21:00 60 28 H 99 Laboratory Results Laboratory Results WBC 8.46 K/ul (4.8-10.8) 10/03/23 03:50 RBC 3.32 M/uL (4.70-6.10) L 10/03/23 03:50 Hgb 8.9 g/dl (14.0-18.0) L 10/03/23 03:50 Hct 28.4 % (42.0-52.0) L 10/03/23 03:50 MCV 85.5 fL (80.0-100.0) 10/03/23 03:50 MCH 26.8 pg (25.0-34.0) 10/03/23 03:50 MCHC 31.3 g/dL (32.0-36.0) L 10/03/23 03:50 RDW Std Deviation 49.7 fL (36.4-46.3) H 10/03/23 03:50 RDW Coeff of Timoteo 15.9 % (11.5-14.5) H 10/03/23 03:50 Plt Count 245 K/uL (130-400) 10/03/23 03:50 MPV 10.7 fL (9.4-12.4) 10/03/23 03:50 Immature Gran % (Auto) 1.1 % 10/02/23 04:26 Neut % (Auto) 82.1 % 10/02/23 04:26 Lymph % (Auto) 6.9 % 10/02/23 04:26 [place] % (Auto) 7.8 % 10/02/23 04:26 Eos % (Auto) 1.8 % 10/02/23 04:26 Baso % (Auto) 0.3 % 10/02/23 04:26 Neut # (Auto) 7.44 K/uL (1.40-6.50) H 10/02/23 04:26 Lymph # (Auto) 0.63 K/uL (1.20-3.40) L 10/02/23 04:26 [place] # (Auto) 0.71 K/uL (0.11-0.59) H 10/02/23 04:26 Eos # (Auto) 0.16 K/uL (0.00-0.50) 10/02/23 04:26 Baso # (Auto) 0.03 K/uL (0.00-0.20) 10/02/23 04:26 Immature Gran # (Auto) 0.10 K/uL (0.01-0.20) 10/02/23 04:26 PT 12.0 Seconds (9.0-12.0) 09/29/23 07:30 INR 1.1 (0.9-1.1) 09/29/23 07:30 APTT 33 Seconds (21-31) H 09/29/23 07:30 PTT Ratio 1.2 09/29/23 07:30 Sodium 137 mmol/L (136-145) 10/03/23 03:50 Potassium 4.1 mmol/L (3.5-5.1) 10/03/23 03:50 Chloride 107 mmol/L (98-107) 10/03/23 03:50 Carbon Dioxide 20 mmol/L (21-32) L 10/03/23 03:50 Anion Gap 10 (3-11) 10/03/23 03:50 BUN 71 mg/dl (6-23) H 10/03/23 03:50 Creatinine 3.35 mg/dl (0.6-1.4) H 10/03/23 03:50 Est Cr Clr Drug Dosing 16.7 ml/min 10/03/23 03:50 Est GFR ( Amer) 18.6 ml/min 10/03/23 03:50 Est GFR (Non-Af Amer) 16.1 ml/min 10/03/23 03:50 BUN/Creatinine Ratio 21.2 (10-20) H 10/03/23 03:50 Glucose 84 mg/dl (70-99(Fasting)) 10/03/23 03:50 POC Glucose 125 mg/dl (70-99) H 10/03/23 07:19 Calcium 8.0 mg/dl (8.6-10.3) L 10/03/23 03:50 Magnesium 2.0 mg/dl (1.7-2.4) 10/02/23 04:26 Iron 18 mcg/dl (35-175) L 10/03/23 03:50 TIBC 156 mcg/dl (250-450) L 10/03/23 03:50 Unsaturated IBC 138 mcg/dl (155-355) L 10/03/23 03:50 Transferrin % Sat 12 % (20-50) L 10/03/23 03:50 Ferritin 330.7 ng/ml (8-388) 10/03/23 03:50 Total Bilirubin 0.4 mg/dl (0.2-1.0) 09/27/23 14:40 AST 13 U/L (13-39) 09/27/23 14:40 ALT 10 U/L (7-52) 09/27/23 14:40 Alkaline Phosphatase 115 U/L (34-104) H 09/27/23 14:40 Total Creatine Kinase 51 U/L (30-223) 09/27/23 14:40 Troponin I High Sens 26.2 pg/ml (0-20) H 09/27/23 16:35 Total Protein 7.5 gm/dl (6.0-8.3) 09/27/23 14:40 Albumin 3.8 gm/dl (3.4-5.0) 09/27/23 14:40 Globulin 3.7 gm/dl (2.5-4.0) 09/27/23 14:40 Albumin/Globulin Ratio 1.0 (0.9-2) 09/27/23 14:40 TSH 1.483 uIu/ml (0.300-4.500) 09/27/23 16:35 Urine Color Yellow 10/02/23 12:35 Urine Appearance Turbid (Clear) A 10/02/23 12:35 Urine pH 5.0 (4.5-7.5) 10/02/23 12:35 Ur Specific [place] 1.015 (1.000-1.030) 10/02/23 12:35 Urine Protein 3+ (Negative) H 10/02/23 12:35 Urine Glucose (UA) Negative (Negative) 10/02/23 12:35 Urine Ketones Negative (Negative) 10/02/23 12:35 Urine Blood 1+ (Negative) H 10/02/23 12:35 Urine Nitrite Positive (Negative) A 10/02/23 12:35 Urine Bilirubin Negative (Negative) 10/02/23 12:35 Urine Urobilinogen Negative (Negative) 10/02/23 12:35 Ur Leukocyte Esterase 3+ (Negative) H 10/02/23 12:35 Urine WBC (Auto) >50 /hpf (0-5) H 10/02/23 12:35 Urine RBC (Auto) 6-10 /hpf (0-2) H 10/02/23 12:35 U Hyaline Cast (Auto) 0-2 /lpf (0-2) 10/02/23 12:35 U Epithel Cells (Auto) 3-5 /hpf (0-2) H 10/02/23 12:35 Urine Bacteria (Auto) None Seen (None Seen) 10/02/23 12:35 Urine Yeast Present (None Prsent) A 10/02/23 12:35 Ur Random Creatinine 16.7 mg/dl 09/27/23 Unknown U Random Total Protein 94.3 mg/dl (0-11.9) H 09/27/23 Unknown Protein/Creatinin Ratio 5.6 (0-0.2) H 09/27/23 Unknown Fluid Type PERICARDIAL FLUID 09/29/23 15:15 Fluid Color RED 09/29/23 15:15 Fluid Appearance TURBID 09/29/23 15:15 Fld Tot Nucleated Cell 1475 cells/uL 09/29/23 15:15 Fluid Neutrophils % 77 % 09/29/23 15:15 Fluid Lymphocytes % 18 % 09/29/23 15:15 Fluid Eosinophils % 0 % 09/29/23 15:15 Fluid Basophils % 0 % 09/29/23 15:15 Fl Monocyt/Macrophag % 5 % 09/29/23 15:15 Fld Mesothelial Cell % 0 % 09/29/23 15:15 Fluid Comment 2 DNR 09/29/23 15:15 Nasal Screen MRSA (PCR) Negative (Negative) 09/29/23 16:35 Impressions Venous Doppler Study 09/27/23 14:14 US venous doppler LE RT CLINICAL HISTORY: R leg edema TECHNIQUE: Right lower extremity real-time compression venous ultrasound with Color Doppler imaging. Utilizing real-time ultrasonic imaging multiple real time high-resolution ultrasonic images with compression and noncompression maneuvers of the deep venous system in addition to color doppler imaging were performed from the common femoral vein through the proximal calf veins. COMPARISON: Comparison is made to ultrasound 02/10/2021 FINDINGS/IMPRESSION: Currently there is normal compressibility of the deep venous system from the common femoral vein through the proximal calf veins. Soft tissue edema is noted in the calf. ACT 112: Negative or not required by law. Electronically signed by: Hector Weinstein M.D. 09/27/2023 3:15 PM Chest X-Ray 09/27/23 14:19 XR chest 1V portable CLINICAL HISTORY: fall 11 days ago, upper R rib pain TECHNIQUE: Single frontal radiograph of the chest was obtained. Comparison: Comparison is made to chest radiograph 03/01/2020 FINDINGS: No lines and tubes are seen. Cardiomegaly is noted. Prominence and cephalization of the vasculature is seen. No evidence of pleural effusion or pneumothorax. Old healed right rib fractures are seen. IMPRESSION: Cardiomegaly and mild pulmonary edema. ACT 112: Negative or not required by law. Electronically signed by: Hector Weinstein M.D. 09/27/2023 2:[address] 09/27/23 17:28 CT OF THE HEAD WITHOUT CONTRAST CLINICAL HISTORY: head trauma COMPARISON STUDY: Head CT March 01, 2020. TECHNIQUE: Helical axial images of the head were obtained without IV contrast. Automated exposure control was utilized for the study. A dose lowering technique was utilized adhering to the principles of ALARA. FINDINGS: No acute intracranial hemorrhage, midline shift or mass effect is present. The ventricular system is unremarkable. The basal cisterns are patent. No extra-axial collections are present. There are no findings to suggest acute dural sinus thrombosis or acute territorial infarct. There are no calvarial fractures. There are age indeterminate mildly displaced bilateral nasal bone fractures. IMPRESSION: 1. No acute intracranial findings. 2. No calvarial fractures. 3. Age indeterminate mildly displaced bilateral nasal bone fractures. ACT 112: Negative or not required by law. Electronically signed by: Rupesh Martell M.D. 09/27/2023 6:[address] 09/27/23 17:31 CT OF THE CERVICAL SPINE WITHOUT CONTRAST CLINICAL HISTORY: fall 10 days ago, neck pain COMPARISON STUDY: Cervical spine CT August 17, 2017. TECHNIQUE: Helical axial images of the cervical spine were obtained without IV contrast. Sagittal and coronal reconstructions were viewed. Automated exposure control was utilized for the study. A dose lowering technique was utilized adhering to the principles of ALARA. FINDINGS: Alignment of the cervical spine is anatomic. Vertebral body heights are maintained. No acute cervical spine fracture or subluxation is present. There is no prevertebral edema. Facet joints are intact. Fusion of C3 on C4 is again noted. Moderate multilevel degenerative disc disease and facet arthrosis is present. IMPRESSION: No acute cervical spine fracture or subluxation. ACT 112: Negative or not required by law. Electronically signed by: Rupesh Martell M.D. 09/27/2023 6:15 PM Abdomen/Pelvis CT 09/27/23 17:32 CT OF THE ABDOMEN AND PELVIS WITHOUT CONTRAST CLINICAL HISTORY: fall 10 days ago, ongoing abdominal pain COMPARISON STUDY: CT of the abdomen and pelvis January 24, 2023. MRI of the abdomen and pelvis August 02, 2023. TECHNIQUE: Axial images of the abdomen and pelvis were obtained without IV contrast. Images were reviewed in the axial, sagittal, and coronal planes. Automated exposure control was utilized for the study. A dose lowering technique was utilized adhering to the principles of ALARA. FINDINGS: Please note that the chest CT will be reported separately. No hemoperitoneum or pneumoperitoneum is present. Cardiomegaly and moderate pericardial effusion are unchanged. Evaluation of the solid abdominal viscera is suboptimal on this unenhanced exam. Liver, spleen, adrenal glands, kidneys and pancreas are similar in appearance to prior CT. Urothelial thickening of the bilateral renal pelves and proximal ureters remains unchanged. Prostate is markedly enlarged, unchanged. A suprapubic catheter is in place. Status post rectal resection. Irregular presacral density remains unchanged. This favors postsurgical change. No pathologically enlarged abdominal or pelvic lymph nodes are present. A small amount of fluid within the pelvis is present. There is no fluid collection. 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 Several loops of mildly dilated small bowel are present within the hernia sac. No acute fractures within the lumbar spine, pelvis or hips are identified. IMPRESSION: 1. No acute traumatic findings within the abdomen or pelvis on unenhanced exam. 2. 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 Several loops of mildly dilated small bowel. A partial small bowel obstruction would be difficult to exclude. 3. No change in urothelial thickening of the bilateral renal pelves and proximal ureters. Prostatomegaly, unchanged. No hydronephrosis. ACT 112: Negative or not required by law. Electronically signed by: Rupesh Martell M.D. 09/27/2023 6:[address] 09/27/23 17:32 CT OF THE CHEST WITHOUT IV CONTRAST CLINICAL HISTORY: anterior chest wall pain, trauma. Fall 10 days ago. COMPARISON STUDY: Chest CT July 20, 2023. Chest radiograph performed earlier today. TECHNIQUE: Axial images of the chest were obtained without IV contrast. Images were reviewed in the axial, sagittal, and coronal planes. IV contrast was not administered for this examination. Automated exposure control was utilized for the study. A dose lowering technique was utilized adhering to the principles of ALARA. FINDINGS: Thoracic aorta is suboptimally assessed on this unenhanced exam but there is no mediastinal hematoma. Cardiomegaly and moderate sized pericardial effusion are unchanged since CT of 07/20/2023. There is a trace right pleural effusion. There is no pneumothorax. Several nodular opacities within the lower lobes are noted, the largest of which is a 9 mm left lower lobe nodule on image 111 of 253. This is new since CT of July 20, 2023. There are also groundglass opacities within the lower lobes. Multiple old bilateral rib fractures are present. There are probable subacute fractures of the anterior right fourth through seventh ribs and the anterior left fifth and sixth ribs. No thoracic spine fractures are present. There is extensive anterior osteophytosis of the thoracic spine. Abdomen and pelvis CT will be reported separately. IMPRESSION: 1. No pneumothorax. Subacute appearing fractures of the anterior right fourth through seventh ribs and the anterior left fifth and sixth ribs. Numerous old bilateral rib fractures. 2. Trace right pleural effusion. 3. Cardiomegaly and a moderate pericardial effusion, unchanged since CT of July 20, 2023. 4. Several nodular opacities within the lower lobes and groundglass opacities, new since prior chest CT. These favor a mild infectious process although are indeterminate. A follow-up chest CT in 3 months to ensure resolution is recommended. ACT 112: Negative or not required by law. Electronically signed by: Rupesh Martell M.D. 09/27/2023 6:25 PM PG Care Time/CCT Total # of Minutes Spent Total Time Spent with Patient: Total time spent is greater than 50% in coordination of care (as documented) at patient's floor/unit and/or counseling patient: Coding Level of Care Code 07338 SUB INP/OBS CARE 3/50MIN Diagnoses Acute kidney injury N17.9 Chronic kidney disease, stage 4 (severe) N18.4 Pericardial effusion I31.39 Acute UTI (urinary tract infection) N39.0 New onset atrial fibrillation I48.91 Anemia D64.9
--- NOTE | 2023-10-03 16:18 | Hospitalist Progress Note ---
Date of Service October 03, 2023 Assessment & Plan (1) Acute kidney injury: Plan: pt with prema on ckd4, started ivf cautiously on 09/30 as was initially with diastolic hf, this may have been secondary to pericardial effusion with tamponade physiology continue elevation of BUN/Cr despite continue hydration and holding lasix, concern if azotemia from Cefepime, did stop cefepime and changed to zosyn, with pharmacy renal dosing nephrology consult following (2) New onset of congestive heart failure: Plan: concern for acute systolic and diastolic heart failure Bilateral pitting edema (R > L without DVT present), Possibility related to acute on chronic diastolic heart failure secondary to atrial fibrillation seen at admission, but noted pericardial effusion with Rv impact seen Status post pericardiocentesis on 09/29/23, 500 mL initial drain 150 later. Bloody fluid. Pericardial drain removed 09/30/23 Regarding new onset Atrial fibrillation not sure in permanent or paroxysmal, no need for rate controlling agents at this time considered anticoagulation however with falls. bloody pericardial effusion mild troponin elevation likely demand ischemia CT Chest on presentation reveals some nodules, will benefit from repeat CT in 3 months (3) Fall: Plan: [address] head, c-spine, chest, abdomen, pelvis to rule out internal bleeding prior to starting anticoagulation subacute fractures of the anterior right fourth through seventh ribs and the anterior left fifth and sixth ribs edema of RLE, Dopper negative on presentation, urine now did result in Klebsiella and Pseudomonas, >100,000, thus fall maybe metabolic encephalopahty and weakness,\ now on Zosyn therapy PT/OT, feels pt is appropriate for home (4) DM (diabetes mellitus), type 2: Plan: Hemoglobin A1c 7.9 in July On 20 units Lantus QPM and Sitagliptin home medications Previous admission glucose was well-controlled on Lantus 5 units BID therefore continue on this NovoLog: --Goal BSG Range: Low 110 mg/dL, High 140 mg/dL --Correction Factor: 45 mg/dL/unit --Carbohydrate ratio = 15 g/unit --BSGs ACHS if eating, q6h if npo (5) Suprapubic catheter: Plan: Chronic UA shows both Klebsiella and Pseudomonas with different sensitivities and resistance only placed on cefepime therapy close to Zosyn therapy however given these organisms likely will need a few days of intravenous antibiotics in the hospital. Concern of fall could be from metabolic encephalopathy from urinary tract infection present on admission. Plus minus heart failure from his pericardial effusion. 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 Cardiac exam is regular, drain is removed. ribs are less painful Lungs are clear without wheezes or crackles Abdomen NABS soft nontender, ostomy is functioning Extremities with trace edema Results & Data Results & Data Vital Signs (Past 12 Hours) Vital Signs Temp Pulse Pulse Resp BP BP Pulse Ox 10/03/23 15:49 97.3 F L 52 L 18 146/70 H 100 10/03/23 13:00 124/88 10/03/23 13:00 48 L 18 10/03/23 12:27 98.2 F 10/03/23 12:00 136/69 10/03/23 12:00 57 L 23 99 10/03/23 11:01 58 L 21 93 10/03/23 11:01 108/81 10/03/23 10:01 126/62 10/03/23 10:00 66 18 90 10/03/23 09:50 59 L 10/03/23 09:11 97.5 F L 10/03/23 08:00 123/70 10/03/23 08:00 61 18 96 10/03/23 07:25 10/03/23 07:00 99/63 L 10/03/23 07:00 56 L 19 94 10/03/23 07:00 10/03/23 06:00 105/54 L 10/03/23 06:00 56 L 12 96 10/03/23 05:00 123/66 10/03/23 05:00 53 L 10 L 96 Pulse Ox O2 Del Method O2 Del Method 10/03/23 15:49 Room Air 10/03/23 13:00 10/03/23 13:00 10/03/23 12:27 10/03/23 12:00 10/03/23 12:00 10/03/23 11:01 10/03/23 11:01 10/03/23 10:01 10/03/23 10:00 10/03/23 09:50 10/03/23 09:11 10/03/23 08:00 10/03/23 08:00 10/03/23 07:25 Room Air 10/03/23 07:00 10/03/23 07:00 10/03/23 07:00 97 Room Air 10/03/23 06:00 10/03/23 06:00 10/03/23 05:00 10/03/23 05:00 Laboratory Results review cbc review chemistry reviewed all medication and orders for transfer to lower level of care PG Care Time/CCT Total # of Minutes Spent Total Time Spent with Patient: Total time spent is greater than 50% in coordination of care (as documented) at patient's floor/unit and/or counseling patient: Coding Level of Care Code 25750 SUB INP/OBS CARE 3/50MIN Diagnoses Acute kidney injury N17.9 New onset of congestive heart failure I50.9 Fall W19.XXXA DM (diabetes mellitus), type 2 E11.9 Suprapubic catheter Z93.59
--- NOTE | 2023-10-03 19:30 | Urology Consultation ---
Date of Consultation October 03, 2023 Assessment & Plan (1) Acute UTI (urinary tract infection): (2) Suprapubic catheter: Plan Urology was consulted for suprapubic catheter exchange in the setting of UTI - Using sterile technique, an 18Fr Suprapubic catheter was exchanged at bedside without difficulty with return of clear yellow urine. Pt tolerated well. Catheter was flushed without difficulty. - Maintain SP tube. OK to flush the catheter as needed - Continue monthly catheter changes on discharge - Continue antibiotics for treatment of UTI - Urology will sign-off. Please call with any further questions or concerns. 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 Urology consulted for suprapubic catheter exchange in the setting of infection Patient has monthly SP tube exchanges in the urology clinic. Last exchange 09/15/23. Chart review: Afebrile, hemodynamically stable Labs (10/03/23): WBC 8.46, Creatinine 3.35, Hemoglobin 8.9 Urine culture 09/27/23 grew klebsiella and pseudomonas On IV Zosyn CT abdomen pelvis- 1. No acute traumatic findings within the abdomen or pelvis on unenhanced exam. 2. 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 Several loops of mildly dilated small bowel. A partial small bowel obstruction would be difficult to exclude. 3. No change in urothelial thickening of the bilateral renal pelves and proximal ureters. Prostatomegaly, unchanged. No hydronephrosis. Allergies Allergy/AdvReac Type Severity Reaction Status Date / Time atorvastatin [From Lipitor] Allergy Unknown Verified 09/15/23 14:16 Home Medications Medication Instructions Recorded Confirmed Type ferrous sulfate 325 mg (65 mg 325 mg PO QAM 02/24/18 09/27/23 History iron) tablet rosuvastatin 10 mg tablet 10 mg PO HS 02/24/18 09/27/23 History cyanocobalamin (vitamin B-12) 1,000 mcg PO DAILY 12/19/19 09/27/23 History 1,000 mcg tablet (Vitamin B-12) cholecalciferol (vitamin D3) 25 2,000 unit PO DAILY #180 tabs 04/25/20 09/27/23 Rx mcg (1,000 unit) tablet (Vitamin D3) amlodipine 2.5 mg tablet 2.5 mg PO DAILY #90 tabs 09/25/21 09/27/23 Rx mupirocin 2 % topical ointment 1 applic topical TID 04/18/23 09/27/23 History trospium 60 mg capsule,extended 60 mg PO DAILYBB 04/18/23 09/27/23 History release 24 hr Tylenol See Rx Instructions .Route 09/27/23 09/27/23 History .COMPLEX PRN Pain insulin glargine 100 unit/mL (3 20 unit subcut PM 09/27/23 09/27/23 History mL) subcutaneous pen (Basaglar KwikPen U-100 Insulin) sitagliptin phosphate 50 mg tablet 50 mg PO DAILY 09/27/23 09/27/23 History (Januvia) Patient History Medical History (Updated 10/02/23 @ 11:24 by Ge Fall MD) Jewell UTI DM (diabetes mellitus), type 2 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 Anemia Vitamin D deficiency Diabetes Chronic kidney disease, stage III (moderate) Syncope and collapse Rectal cancer (06/17/17) "Rectal bleeding Status post colonoscopy and biopsy 06/17/2017 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 Plan for combined radiation and chemotherapy followed by possible resection Status post completion of combined radiation and chemotherapy August 30, 2017." On 07/07/17 13:09 Felicia Hannon wrote "Rectal bleeding Status post colonoscopy and biopsy 06/17/2017 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 Plan for combined radiation and chemotherapy followed by possible resection" Pre-syncope Obstructive uropathy Diarrhea Surgical History Previous back surgery Family History Other Family history non-contributory Social History Smoking Status: Never smoker Hx Alcohol Use: No Hx Substance Use: No Preferred Language: Kosovan Communication Ability: Effective Visual Impairment: No Limitations 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: Normal Engravings Polisher Required: No Beliefs That Will Affect Care: None marital status: / Current Living Situation: Alone Current Living Situation Comment: home current occupational status: retired Other Information That Helps Us Care for You: No Feels Safe at Home: Yes Safety Concerns: Feels Safe At This Time Assistive Devices: None Review of Systems Review of Systems: All systems reviewed & are unremarkable except as noted in HPI & below Physical Exam Constitutional: no acute distress Neck: normal visual inspection Respiratory: no respiratory distress and no labored breathing Gastrointestinal (Abdomen): Colostomy present Musculoskeletal: Head/Neck/Chest: normocephalic Skin: No visible rashes or lesions to exposed skin areas Neurologic: moves all extremities and awake Psychiatric: A+Ox3, euthymic affect Genitourinary: Suprapubic catheter intact draining clear yellow urine Results & Data Vital Signs (Past 12 Hours) Vital Signs Temp Pulse Pulse Resp BP BP Pulse Ox 10/03/23 15:49 36.3 C L 52 L 18 146/70 H 100 10/03/23 13:00 124/88 10/03/23 13:00 48 L 18 10/03/23 12:27 36.8 C 10/03/23 12:00 136/69 10/03/23 12:00 57 L 23 99 10/03/23 11:01 58 L 21 93 10/03/23 11:01 108/81 10/03/23 10:01 126/62 10/03/23 10:00 66 18 90 10/03/23 09:50 59 L 10/03/23 09:11 36.4 C L 10/03/23 08:00 123/70 10/03/23 08:00 61 18 96 10/03/23 07:25 10/03/23 07:00 99/63 L 10/03/23 07:00 56 L 19 94 10/03/23 07:00 10/03/23 06:00 105/54 L 10/03/23 06:00 56 L 12 96 10/03/23 05:00 123/66 10/03/23 05:00 53 L 10 L 96 10/03/23 04:00 36.6 C 10/03/23 04:00 56 L 22 90 10/03/23 04:00 108/50 L Pulse Ox O2 Del Method O2 Del Method 10/03/23 15:49 Room Air 10/03/23 13:00 10/03/23 13:00 10/03/23 12:27 10/03/23 12:00 10/03/23 12:00 10/03/23 11:01 10/03/23 11:01 10/03/23 10:01 10/03/23 10:00 10/03/23 09:50 10/03/23 09:11 10/03/23 08:00 10/03/23 08:00 10/03/23 07:25 Room Air 10/03/23 07:00 10/03/23 07:00 10/03/23 07:00 97 Room Air 10/03/23 06:00 10/03/23 06:00 10/03/23 05:00 10/03/23 05:00 10/03/23 04:00 10/03/23 04:00 10/03/23 04:00 PG Care Time/CCT Total # of Minutes Spent Total Time Spent with Patient: Total time spent is greater than 50% in coordination of care (as documented) at patient's floor/unit and/or counseling patient: Coding Diagnoses Acute UTI (urinary tract infection) N39.0 Suprapubic catheter Z93.59
--- NOTE | 2023-10-04 08:32 | Nephrology Progress Note ---
Date of Service October 04, 2023 Assessment & Plan (1) Acute kidney injury: Plan: * CLAYTON likely on the basis of impaired renal perfusion associated w/ pericardial effusion, cystitis * BP has improved following pericardiocentesis * Noncontrast abdominal CT 09/27/23 negative for obstruction * No recent exposure to known nephrotoxic agents * Patient remains nonoliguric. Volume status and electrolyte balance are acceptable. Patient appears to be in recovery phase. Cr is trending down. No acute indication for HD at this time. * Hold IVF. Encourage oral hydration * Monitor PRP (2) Chronic kidney disease, stage 4 (severe): Plan: * CKD stage G4/A3 (advanced impairment) w/ baseline Cr 2.1, EGFR 27 cc/min due to microvascular disease, DKD (3) Pericardial effusion: Plan: * 09/29/23 echocardiogram: LVEF 40-45%, effusion w/ tamponade physiology * s/p pericardiocentesis 09/28. Prelim cx - NGTD. Cytology pending (4) Acute UTI (urinary tract infection): Plan: * Klebsiella/Pseudomonas UTI - on IV Zosyn * Suprapubic catheter changed by Urology 10/03/23 (5) New onset atrial fibrillation: Plan: * Rate has been controlled * May require anticoagulation. Need to weigh risk/benefit given h/o frequent falls (6) Anemia: Plan: * 10/03/23 iron saturation 12%, ferritin 330.7 * On oral iron therapy Admission and Anticipated Discharge Date Admission Date: September 27, 2023 Subjective Mr. Bhakta was evaluated in his hospital room this morning. He denied fever, angina, dyspnea or flank discomfort. Suprapubic catheter was changed out by Urology yesterday. Clear yellow urine is draining into collection bag Review of Systems Constitutional: no fever Eyes: no problem reported Ear, Nose, Mouth, Throat: no problem reported Respiratory: no cough and no dyspnea Cardiovascular: no chest pain Gastrointestinal: no abdominal pain, no nausea, no vomiting and no diarrhea/loose stools Physical Exam Constitutional: not in distress Eyes: PERRL, conjunctivae normal, anicteric sclerae ENMT: external ear and nose normal, oropharynx normal Neck: trachea midline, no thyromegaly Respiratory: normal respiratory effort, lungs clear to auscultation Cardiovascular: Rate/Rhythm: + irregularly irregular Gastrointestinal (Abdomen): normal bowel sounds, soft, nontender, no hepatosplenomegaly Skin: no rashes, warm and dry Neurologic: Speech / Cognition: normal speech and normal cognition Psychiatric: Affect: euthymic affect Genitourinary: suprapubic catheter in place draining clear yellow urine Results & Data Vital Signs (Past 12 Hours) Vital Signs Temp Pulse Pulse Pulse Resp BP Pulse Ox 10/04/23 07:30 57 L 10/04/23 07:12 36.6 C 57 L 18 126/74 96 10/04/23 02:46 36.5 C 57 L 18 114/62 96 10/03/23 22:34 36.7 C 60 18 121/79 97 10/03/23 21:58 53 L 10/03/23 21:00 O2 Del Method 10/04/23 07:30 10/04/23 07:12 Room Air 10/04/23 02:46 Room Air 10/03/23 22:34 Room Air 10/03/23 21:58 10/03/23 21:00 Room Air Laboratory Results Laboratory Results - last 48 hr 10/02/23 10/02/23 10/02/23 11:26 12:35 16:06 WBC RBC Hgb Hct MCV MCH MCHC RDW Std Deviation RDW Coeff of Timoteo Plt Count MPV Sodium Potassium Chloride Carbon Dioxide Anion Gap BUN Creatinine Est Cr Clr Drug Dosing Est GFR ( Amer) Est GFR (Non-Af Amer) BUN/Creatinine Ratio Glucose POC Glucose 142 H 99 Calcium Iron TIBC Unsaturated IBC Transferrin % Sat Ferritin Urine Color Yellow Urine Appearance Turbid A Urine pH 5.0 Ur Specific Adrian 1.015 Urine Protein 3+ H Urine Glucose (UA) Negative Urine Ketones Negative Urine Blood 1+ H Urine Nitrite Positive A Urine Bilirubin Negative Urine Urobilinogen Negative Ur Leukocyte Esterase 3+ H Urine WBC (Auto) >50 H Urine RBC (Auto) 6-10 H U Hyaline Cast (Auto) 0-2 U Epithel Cells (Auto) 3-5 H Urine Bacteria (Auto) None Seen Urine Yeast Present A 10/02/23 10/03/23 10/03/23 20:27 03:50 07:19 WBC 8.46 RBC 3.32 L Hgb 8.9 L Hct 28.4 L MCV 85.5 MCH 26.8 MCHC 31.3 L RDW Std Deviation 49.7 H RDW Coeff of Timoteo 15.9 H Plt Count 245 MPV 10.7 Sodium 137 Potassium 4.1 Chloride 107 Carbon Dioxide 20 L Anion Gap 10 BUN 71 H Creatinine 3.35 H Est Cr Clr Drug Dosing 16.7 Est GFR ( Amer) 18.6 Est GFR (Non-Af Amer) 16.1 BUN/Creatinine Ratio 21.2 H Glucose 84 POC Glucose 159 H 125 H Calcium 8.0 L Iron 18 L TIBC 156 L Unsaturated IBC 138 L Transferrin % Sat 12 L Ferritin 330.7 Urine Color Urine Appearance Urine pH Ur Specific Adrian Urine Protein Urine Glucose (UA) Urine Ketones Urine Blood Urine Nitrite Urine Bilirubin Urine Urobilinogen Ur Leukocyte Esterase Urine WBC (Auto) Urine RBC (Auto) U Hyaline Cast (Auto) U Epithel Cells (Auto) Urine Bacteria (Auto) Urine Yeast 10/03/23 10/03/23 10/03/23 11:38 16:03 20:14 WBC RBC Hgb Hct MCV MCH MCHC RDW Std Deviation RDW Coeff of Timoteo Plt Count MPV Sodium Potassium Chloride Carbon Dioxide Anion Gap BUN Creatinine Est Cr Clr Drug Dosing Est GFR ( Amer) Est GFR (Non-Af Amer) BUN/Creatinine Ratio Glucose POC Glucose 121 H 89 133 H Calcium Iron TIBC Unsaturated IBC Transferrin % Sat Ferritin Urine Color Urine Appearance Urine pH Ur Specific Adrian Urine Protein Urine Glucose (UA) Urine Ketones Urine Blood Urine Nitrite Urine Bilirubin Urine Urobilinogen Ur Leukocyte Esterase Urine WBC (Auto) Urine RBC (Auto) U Hyaline Cast (Auto) U Epithel Cells (Auto) Urine Bacteria (Auto) Urine Yeast 10/04/23 10/04/23 07:10 07:54 WBC RBC Hgb Hct MCV MCH MCHC RDW Std Deviation RDW Coeff of Timoteo Plt Count MPV Sodium 139 Potassium 4.2 Chloride 109 H Carbon Dioxide 20 L Anion Gap 10 BUN 64 H Creatinine 3.09 H Est Cr Clr Drug Dosing 18.1 Est GFR ( Amer) 20.5 Est GFR (Non-Af Amer) 17.7 BUN/Creatinine Ratio 20.7 H Glucose 72 POC Glucose 80 Calcium 8.2 L Iron TIBC Unsaturated IBC Transferrin % Sat Ferritin Urine Color Urine Appearance Urine pH Ur Specific Adrian Urine Protein Urine Glucose (UA) Urine Ketones Urine Blood Urine Nitrite Urine Bilirubin Urine Urobilinogen Ur Leukocyte Esterase Urine WBC (Auto) Urine RBC (Auto) U Hyaline Cast (Auto) U Epithel Cells (Auto) Urine Bacteria (Auto) Urine Yeast PG Care Time/CCT Total # of Minutes Spent Total Time Spent with Patient: Total time spent is greater than 50% in coordination of care (as documented) at patient's floor/unit and/or counseling patient: Coding Level of Care Code 91227 SUB INP/OBS CARE 3/50MIN Diagnoses Acute kidney injury N17.9 Chronic kidney disease, stage 4 (severe) N18.4 Pericardial effusion I31.39 Acute UTI (urinary tract infection) N39.0 New onset atrial fibrillation I48.91 Anemia D64.9
[2023-10-04 09:33] LABS: Calcium 8.2 mg/dl (8.6-10.3); Potassium 4.2 mmol/L (3.5-5.1)
[2023-10-04 09:38] LABS: BUN Creatinine Ratio 20.7 (10-20); Creatinine Clr Calc Pharmacy 18.1 ml/min; Est GFR (African American) 20.5 ml/min; Est GFR (Non-African American) 17.7 ml/min
[2023-10-04] MEDS: CARBOHYDRATES FOR HYPOGLYCEMIA PO PRN (17:11)
--- NOTE | 2023-10-04 19:50 | Hospitalist Progress Note ---
Date of Service October 04, 2023 Assessment & Plan (1) Acute kidney injury: Plan: pt with prema on ckd4, started ivf cautiously on 09/30 as was initially with diastolic hf, this may have been secondary to pericardial effusion with tamponade physiology Improvement in BUN and creatinine will reinforce p.o. and continue continue holding lasix, concern if azotemia from Cefepime, did stop cefepime and changed to zosyn, with pharmacy renal dosing nephrology consult following (2) New onset of congestive heart failure: Plan: concern for acute systolic and diastolic heart failure now may have been jourdan nieto to his tamponade physiology from traumatic pericardial effusion Possibility also atrial fibrillation contributing to acute on chronic diastolic heart failure atrial fibrillation present on admission, Status post pericardiocentesis on 09/29/23, 500 mL initial drain 150 later. Bloody fluid. Pericardial drain removed 09/30/23 Regarding new onset Atrial fibrillation not sure in permanent or paroxysmal, no need for rate controlling agents at this time Consider instituting anticoagulation therapy, given renal function will start low-dose apixaban mild troponin elevation likely demand ischemia CT Chest on presentation reveals some nodules, will benefit from repeat CT in 3 months (3) Fall: Plan: [address] head, c-spine, chest, abdomen, pelvis to rule out internal bleeding prior to starting anticoagulation subacute fractures of the anterior right fourth through seventh ribs and the anterior left fifth and sixth ribs edema of RLE, Dopper negative on presentation, urine now did result in Klebsiella and Pseudomonas, >100,000, thus fall maybe metabolic encephalopahty and weakness,\ now on Zosyn therapy neurology did change suprapubic catheter on 10/03/2023 PT/OT, reevaluation patient feels now more weak and tired and is concerned about going home (4) DM (diabetes mellitus), type 2: Plan: Hemoglobin A1c 7.9 in July On 20 units Lantus QPM and Sitagliptin home medications Previous admission glucose was well-controlled on Lantus 5 units BID therefore continue on this NovoLog: --Goal BSG Range: Low 110 mg/dL, High 140 mg/dL --Correction Factor: 45 mg/dL/unit --Carbohydrate ratio = 15 g/unit --BSGs ACHS if eating, q6h if npo (5) Suprapubic catheter: Plan: Chronic changed by urology this hospital stay UA shows both Klebsiella and Pseudomonas with different sensitivities and resistance only placed on cefepime therapy close to Zosyn therapy however given these organisms likely will need a few days of intravenous antibiotics in the hospital. Concern of fall could be from metabolic encephalopathy from urinary tract infection present on admission. The fall leading to a traumatic pericardial effusion Plan Diet - type 2 diabetes, heart healthy, low-sodium 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, this is well functioning Admission and Anticipated Discharge Date Admission Date: September 27, 2023 Subjective Patient is tearful today reconsidering whether he is able to live independently or go to personal-long-term. Having a difficult night but having good output in his ostomy bag. His BUN/creatinine have improved slightly Nephrology is pleased with this and wishes to continue to reinforce oral intake at this time. Physical Exam Physical Exam: Awake alert and appropriate. Cardiac exam is regular, drain is removed. ribs continue to be reducing in pain over time Lungs are clear without wheezes or crackles Abdomen NABS soft nontender, ostomy is functioning Extremities with trace edema Results & Data Results & Data Vital Signs (Past 12 Hours) Vital Signs Temp Pulse Resp BP Pulse Ox O2 Del Method 10/04/23 14:54 97.7 F 100 H 18 104/70 94 Room Air 10/04/23 11:07 97.9 F 65 18 121/54 L 97 Room Air Laboratory Results reviewed chemistry PG Care Time/CCT Total # of Minutes Spent Total Time Spent with Patient: Total time spent is greater than 50% in coordination of care (as documented) at patient's floor/unit and/or counseling patient: Coding Level of Care Code 75789 SUB INP/OBS CARE 3/50MIN Diagnoses Acute kidney injury N17.9 New onset of congestive heart failure I50.9 Fall W19.XXXA DM (diabetes mellitus), type 2 E11.9 Suprapubic catheter Z93.59
[2023-10-04] MEDS: APIXABAN 2.5 MG TAB PO SCH (21:05)
[2023-10-05 07:28] LABS: BUN Creatinine Ratio 19.7 (10-20); Calcium 8.3 mg/dl (8.6-10.3); Creatinine Clr Calc Pharmacy 19.3 ml/min; Est GFR (African American) 22.2 ml/min; Est GFR (Non-African American) 19.1 ml/min; Potassium 4.3 mmol/L (3.5-5.1)
--- NOTE | 2023-10-05 08:46 | Nephrology Progress Note ---
Date of Service October 05, 2023 Assessment & Plan (1) Acute kidney injury: Plan: * CLAYTON likely on the basis of impaired renal perfusion associated w/ pericardial effusion, cystitis * BP has improved following pericardiocentesis * Noncontrast abdominal CT 09/27/23 negative for obstruction * No recent exposure to known nephrotoxic agents * Patient remains nonoliguric. Volume status and electrolyte balance are acceptable. Patient appears to be in recovery phase. Cr is trending down (2.9 today). No acute indication for HD at this time. * Hold IVF. Encourage oral hydration, advance activity * Monitor PRP (2) Chronic kidney disease, stage 4 (severe): Plan: * CKD stage G4/A3 (advanced impairment) w/ baseline Cr 2.1, EGFR 27 cc/min due to microvascular disease, DKD (3) Pericardial effusion: Plan: * 09/29/23 echocardiogram: LVEF 40-45%, effusion w/ tamponade physiology * s/p pericardiocentesis 09/28. Prelim cx - NGTD. Cytology pending (4) Acute UTI (urinary tract infection): Plan: * Klebsiella/Pseudomonas UTI - on IV Zosyn * Suprapubic catheter changed by Urology 10/03/23 (5) New onset atrial fibrillation: Plan: * Rate has been controlled * May require anticoagulation. Need to weigh risk/benefit given h/o frequent falls (6) Anemia: Plan: * 10/03/23 iron saturation 12%, ferritin 330.7 * On oral iron therapy Admission and Anticipated Discharge Date Admission Date: September 27, 2023 Subjective Mr. Bhakta was evaluated in his hospital room this morning. He denied fever, angina, dyspnea or flank discomfort. Suprapubic catheter was changed out by Urology 10/03/23. Clear yellow urine is draining into collection bag Review of Systems Constitutional: no fever Eyes: no problem reported Ear, Nose, Mouth, Throat: no problem reported Respiratory: no cough and no dyspnea Cardiovascular: no chest pain Gastrointestinal: no abdominal pain, no nausea, no vomiting and no diarrhea/loose stools Physical Exam Constitutional: not in distress Eyes: PERRL, conjunctivae normal, anicteric sclerae ENMT: external ear and nose normal, oropharynx normal Neck: trachea midline, no thyromegaly Respiratory: normal respiratory effort, lungs clear to auscultation Cardiovascular: Rate/Rhythm: + irregularly irregular Gastrointestinal (Abdomen): normal bowel sounds, soft, nontender, no hepatosplenomegaly Skin: no rashes, warm and dry Neurologic: Speech / Cognition: normal speech and normal cognition Psychiatric: Affect: euthymic affect Results & Data Vital Signs (Past 12 Hours) Vital Signs Temp Pulse Pulse Pulse Resp BP Pulse Ox 10/05/23 07:05 36.5 C 55 L 17 145/82 H 97 10/05/23 03:01 36.5 C 53 L 20 151/79 H 97 10/04/23 22:45 36.5 C 51 L 18 157/75 H 98 10/04/23 21:58 58 L 10/04/23 21:10 O2 Del Method 10/05/23 07:05 Room Air 10/05/23 03:01 Room Air 10/04/23 22:45 Room Air 10/04/23 21:58 10/04/23 21:10 Room Air Laboratory Results Laboratory Results - last 24 hr 10/04/23 10/04/23 10/04/23 07:54 11:06 12:32 Sodium 139 Potassium 4.2 Chloride 109 H Carbon Dioxide 20 L Anion Gap 10 BUN 64 H Creatinine 3.09 H Est Cr Clr Drug Dosing 18.1 Est GFR ( Amer) 20.5 Est GFR (Non-Af Amer) 17.7 BUN/Creatinine Ratio 20.7 H Glucose 72 POC Glucose 69 L* 70 Calcium 8.2 L 10/04/23 10/04/23 10/04/23 16:29 17:01 17:35 Sodium Potassium Chloride Carbon Dioxide Anion Gap BUN Creatinine Est Cr Clr Drug Dosing Est GFR ( Amer) Est GFR (Non-Af Amer) BUN/Creatinine Ratio Glucose POC Glucose 69 L* 62 L* 75 Calcium 10/04/23 10/05/23 10/05/23 19:34 06:52 07:05 Sodium 140 Potassium 4.3 Chloride 112 H Carbon Dioxide 20 L Anion Gap 8 BUN 57 H Creatinine 2.90 H Est Cr Clr Drug Dosing 19.3 Est GFR ( Amer) 22.2 Est GFR (Non-Af Amer) 19.1 BUN/Creatinine Ratio 19.7 Glucose 95 POC Glucose 164 H 90 Calcium 8.3 L PG Care Time/CCT Total # of Minutes Spent Total Time Spent with Patient: Total time spent is greater than 50% in coordination of care (as documented) at patient's floor/unit and/or counseling patient: Coding Level of Care Code 19814 SUB INP/OBS CARE MIN Diagnoses Acute kidney injury N17.9 Chronic kidney disease, stage 4 (severe) N18.4 Pericardial effusion I31.39 Acute UTI (urinary tract infection) N39.0 New onset atrial fibrillation I48.91 Anemia D64.9
--- NOTE | 2023-10-05 16:47 | Discharge Summary ---
Date of Service October 05, 2023 Admission HPI Per Admitting Provider Gian Bhakta is an 83 year old male who presents to the ER for right leg swelling following a fall 10 days ago. He reports falling while hiking 10 days ago and spending almost 6 hours on the ground until someone found him and were able to help him off the ground. He denies any dizziness, lightheadedness of chest pain prior to the fall and feels he tripped while using his two walking sticks and fell forward hitting his head but no loss of consciousness. He has been having chest pain since the fall but that is worse on palpation. His main concern is the swelling which is actually in both legs but worse on the right side which has progressively got worse since the fall. He denies any new weakness since the fall, no headache, other pains other than over his lower right anterior chest. Discharge Data Allergies Allergy/AdvReac Type Severity Reaction Status Date / Time atorvastatin [From Lipitor] Allergy Unknown Verified 09/15/23 14:16 Consultations 09/27/23 17:01 ED Decision to Admit Stat 09/28/23 12:02 Consult Cardiology Routine 10/02/23 07:59 Consult Nephrology Routine 10/03/23 08:27 Consult Urology Routine Procedures Performed Operation Date: 09/29/23 14:00 Actual Procedures p Pericardiocentesis Initial - Eric Telles MD Ordered Studies 09/27/23 14:14 US venous doppler LE RT Stat 09/27/23 17:28 CT head/brain wo con Stat 09/27/23 17:31 CT cervical spine wo con Stat 09/27/23 17:32 CT Abd and Pelvis [CT abd pelvis wo con] Stat CT chest diagnostic wo con Stat Hospital Course (1) Acute kidney injury: pt with prema on ckd4, started ivf cautiously on 09/30 as was initially with diastolic hf, this may have been secondary to pericardial effusion with tamponade physiology Improvement in BUN and creatinine will reinforce p.o. and continue continue holding lasix, concern if azotemia from Cefepime, did stop cefepime and changed to zosyn, with pharmacy renal dosing nephrology consult following (2) New onset of congestive heart failure: concern for acute systolic and diastolic heart failure now may have been secondary to his tamponade physiology from traumatic pericardial effusion Possibility also atrial fibrillation contributing to acute on chronic diastolic heart failure atrial fibrillation present on admission, Status post pericardiocentesis on 09/29/23, 500 mL initial drain 150 later. Bloody fluid. Pericardial drain removed 09/30/23 Regarding new onset Atrial fibrillation not sure in permanent or paroxysmal, no need for rate controlling agents at this time Consider instituting anticoagulation therapy, given renal function will start low-dose apixaban mild troponin elevation likely demand ischemia CT Chest on presentation reveals some nodules, will benefit from repeat CT in 3 months (3) Fall: [address] head, c-spine, chest, abdomen, pelvis to rule out internal bleeding prior to starting anticoagulation subacute fractures of the anterior right fourth through seventh ribs and the anterior left fifth and sixth ribs edema of RLE, Dopper negative on presentation, urine now did result in Klebsiella and Pseudomonas, >100,000, thus fall maybe metabolic encephalopahty and weakness,\ now on Zosyn therapy neurology did change suprapubic catheter on 10/03/2023 PT/OT, reevaluation patient feels now more weak and tired and is concerned about going home (4) DM (diabetes mellitus), type 2: Hemoglobin A1c 7.9 in July On 20 units Lantus QPM and Sitagliptin home medications Previous admission glucose was well-controlled on Lantus 5 units BID therefore continue on this NovoLog: --Goal BSG Range: Low 110 mg/dL, High 140 mg/dL --Correction Factor: 45 mg/dL/unit --Carbohydrate ratio = 15 g/unit --BSGs ACHS if eating, q6h if npo (5) Suprapubic catheter: Chronic changed by urology this hospital stay UA shows both Klebsiella and Pseudomonas with different sensitivities and resistance only placed on cefepime therapy close to Zosyn therapy however given these organisms likely will need a few days of intravenous antibiotics in the hospital. Concern of fall could be from metabolic encephalopathy from urinary tract infection present on admission. 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 Condition on Discharge: Good Activity: Resume your previous activity Non-emergency contact: Primary Care Provider Call non-emergency contact if: you have any medication questions Follow-up/Referrals: Donelan,Ge M., MD [Physician] - 10/10/23 3:00 pm (Nephrology follow up: Dr Ge Fall: October 10, 2023 @ 3:00) Bisi Rhodes [Primary Care Provider] - Diet: Carb Consistent or DM2, Heart Healthy and Low Sodium (2gm) Addtl Attending Provider Instructions: Please followup with PCP in 1 week. Recommend a followup echocardiogram in 1 week as an outpatient. Recommend followup with Nephrology in 1-2 weeks. Take cipro once a day in the evening Bacrtim twice a day start tonight. Pending Studies at Discharge: No Stand-Alone Forms: My Done In :60 Seconds, Smoking Cessation Medications and DC Order Prescriptions: New Probiotic 3 billion cell capsule 3,000 mmu cells PO DAILY Qty: 7 0RF Rx Instructions: administer with a meal sulfamethoxazole-trimethoprim [Bactrim] 400-80 mg tablet 1 tab PO BID Qty: 8 0RF Rx Instructions: First dose tonight ciprofloxacin HCl [Cipro] 500 mg tablet 500 mg PO DAILY Qty: 4 0RF Rx Instructions: First dose tonight Eliquis 2.5 mg Tablet 2.5 mg PO BID Qty: 30 0RF Continued cholecalciferol (vitamin D3) [Vitamin D3] 25 mcg (1,000 unit) tablet 2,000 unit PO DAILY Qty: 180 0RF amlodipine 2.5 mg tablet 2.5 mg PO DAILY Qty: 90 3RF ferrous sulfate 325 mg (65 mg iron) Tablet 325 mg PO QAM rosuvastatin 10 mg tablet 10 mg PO HS cyanocobalamin (vitamin B-12) [Vitamin B-12] 1,000 mcg tablet 1,000 mcg PO DAILY mupirocin 2 % ointment 1 applic TOPICAL TID trospium 60 mg capsule,extended release 24hr 60 mg PO DAILYBB Januvia 50 mg tablet 50 mg PO DAILY insulin glargine [Basaglar KwikPen U-100 Insulin] 100 unit/mL (3 mL) insulin pen 20 unit SUBCUT PM Tylenol See Rx Instructions .ROUTE .COMPLEX PRN (Reason: Pain) Rx Instructions: otc as directed Discharge Orders: Discharge Order (Routine); Ordered 10/05/23 Ordered By: Maximo Weller Admission Data Admit Date/Time: 09/27/23 17:43 Attending Provider: Maximo Weller Admit Provider: Michael Holman Primary Care Provider: Bisi Rhodes Other Providers: IRB Approved Study,Jin; Michael Holman; Jasbir Clifford; Ge Fall Other Interventions: Discharge Summary Assessment (RN) Last Done: 10/05/23 15:28 Coding Diagnoses Acute kidney injury N17.9 New onset of congestive heart failure I50.9 Fall W19.XXXA DM (diabetes mellitus), type 2 E11.9 Suprapubic catheter Z93.59
--- NOTE | 2023-10-05 20:30 | Communication Note ---
Date of Service: October 05, 2023 I was notified by nursing that patient was supposed to be discharged today, however did not have care coordinated to go home. Nursing states that patient is refusing his 4am zosyn. At this time there is no progress note written for the day so I have reviewed the prescriptions that were sent to the pharmacy by the daytime hospitalist which shows plan to start Bactrim and Cipro tonight. I have placed orders to start these antibiotics tonight as patient declines planned Zosyn.
[2023-10-05 21:45] VITALS: RESP 16
--- NOTE | 2023-10-05 22:11 | Hospitalist Progress Note ---
Date of Service October 05, 2023 Assessment & Plan (1) Acute kidney injury: Plan: pt with prema on ckd4, started ivf cautiously on 09/30 as was initially with diastolic hf, this may have been secondary to pericardial effusion with tamponade physiology Improvement in BUN and creatinine will reinforce p.o. and continue continue holding lasix, concern if azotemia from Cefepime, did stop cefepime and changed to zosyn, with pharmacy renal dosing nephrology consult following reviewed BMP on 10/04 (2) New onset of congestive heart failure: Plan: concern for acute systolic and diastolic heart failure now may have been secondary to his tamponade physiology from traumatic pericardial effusion Possibility also atrial fibrillation contributing to acute on chronic diastolic heart failure atrial fibrillation present on admission, Status post pericardiocentesis on 09/29/23, 500 mL initial drain 150 later. Bloody fluid. Pericardial drain removed 09/30/23 Regarding new onset Atrial fibrillation not sure in permanent or paroxysmal, no need for rate controlling agents at this time Consider instituting anticoagulation therapy, given renal function will start low-dose apixaban mild troponin elevation likely demand ischemia CT Chest on presentation reveals some nodules, will benefit from repeat CT in 3 months (3) Fall: Plan: [address] head, c-spine, chest, abdomen, pelvis to rule out internal bleeding prior to starting anticoagulation subacute fractures of the anterior right fourth through seventh ribs and the anterior left fifth and sixth ribs edema of RLE, Dopper negative on presentation, urine now did result in Klebsiella and Pseudomonas, >100,000, thus fall maybe metabolic encephalopahty and weakness,\ now on Zosyn therapy neurology did change suprapubic catheter on 10/03/2023 PT/OT, reevaluation patient feels now more weak and tired and is concerned about going home (4) DM (diabetes mellitus), type 2: Plan: Hemoglobin A1c 7.9 in July On 20 units Lantus QPM and Sitagliptin home medications Previous admission glucose was well-controlled on Lantus 5 units BID therefore continue on this NovoLog: --Goal BSG Range: Low 110 mg/dL, High 140 mg/dL --Correction Factor: 45 mg/dL/unit --Carbohydrate ratio = 15 g/unit --BSGs ACHS if eating, q6h if npo (5) Suprapubic catheter: Plan: Chronic changed by urology this hospital stay UA shows both Klebsiella and Pseudomonas with different sensitivities and resistance only placed on cefepime therapy close to Zosyn therapy however given these organisms likely will need a few days of intravenous antibiotics in the hospital. Concern of fall could be from metabolic encephalopathy from urinary tract infection present on admission. 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 Review of Systems Review of Systems: All systems reviewed & are unremarkable except as noted in HPI & below Physical Exam Physical Exam: Awake alert and appropriate. Cardiac exam is regular, Lungs are clear without wheezes or crackles Abdomen NABS soft nontender, ostomy is functioning Extremities with trace edema Results & Data Results & Data Vital Signs (Past 12 Hours) Vital Signs Temp Pulse Pulse Resp BP Pulse Ox O2 Del Method 10/05/23 21:43 36.6 C 58 L 16 163/75 H 97 Room Air 10/05/23 19:42 36.6 C 64 18 160/88 H 94 Room Air 10/05/23 15:28 36.6 C 51 L 54 L 18 141/81 H 97 10/05/23 11:25 36.6 C 54 L 18 141/81 H 97 Room Air PG Care Time/CCT Total # of Minutes Spent Total Time Spent with Patient: Total time spent is greater than 50% in coordination of care (as documented) at patient's floor/unit and/or counseling patient: Coding Level of Care Code 69566 SUB INP/OBS CARE 2/35MIN Diagnoses Acute kidney injury N17.9 New onset of congestive heart failure I50.9 Fall W19.XXXA DM (diabetes mellitus), type 2 E11.9 Suprapubic catheter Z93.59
[2023-10-05] MEDS: SULFA/TRIMETH 400/80MG TAB PO SCH (22:27)
[2023-10-05] MEDS: CIPROFLOXACIN 500 MG TAB PO SCH (22:28)
[2023-10-06 08:01] VITALS: BP 144/69; PULSE 65; TEMP 97.5; O2SAT 96
--- NOTE | 2023-10-06 08:49 | Nephrology Progress Note ---
Date of Service October 06, 2023 Assessment & Plan (1) Acute kidney injury: Plan: * [place] likely on the basis of impaired renal perfusion associated w/ pericardial effusion, cystitis * BP has improved following pericardiocentesis * Noncontrast abdominal CT 09/27/23 negative for obstruction * No recent exposure to known nephrotoxic agents * Patient remains nonoliguric. Volume status and electrolyte balance are acceptable. Patient appears to be in recovery phase. Cr is trending down (2.9 today). No acute indication for HD at this time. * Patient declined lab draw this am. He hopes to return home today with home health * I have asked my staff radiographer to schedule Nephrology follow up in 1-2 weeks and placed order in outpatient EMR to have labs completed 1-2 days prior to OV. This was communicated to Mr. Bhakta this am * No further Nephrology evaluation at this time. Will sign off. Please call if further assistance is needed. (2) Chronic kidney disease, stage 4 (severe): Plan: * CKD stage G4/A3 (advanced impairment) w/ baseline Cr 2.1, EGFR 27 cc/min due to microvascular disease, DKD (3) Pericardial effusion: Plan: * 09/29/23 echocardiogram: LVEF 40-45%, effusion w/ tamponade physiology * s/p pericardiocentesis 09/28. Prelim cx - NGTD. Cytology pending (4) Acute UTI (urinary tract infection): Plan: * Klebsiella/Pseudomonas UTI - on IV Zosyn * Suprapubic catheter changed by Urology 10/03/23 (5) New onset atrial fibrillation: Plan: * Rate has been controlled * May require anticoagulation. Need to weigh risk/benefit given h/o frequent falls (6) Anemia: Plan: * 10/03/23 iron saturation 12%, ferritin 330.7 * On oral iron therapy Admission and Anticipated Discharge Date Admission Date: September 27, 2023 Subjective Mr. Bhakta was evaluated in his hospital room this morning. He denied fever, angina, dyspnea or flank discomfort. He is anxious to return home but states that discharge was delayed to allow time to set up home health. Mr. Bhakta declined antibiotic and lab draw this am Review of Systems Constitutional: no fever Eyes: no problem reported Ear, Nose, Mouth, Throat: no problem reported Respiratory: no cough and no dyspnea Cardiovascular: no chest pain Gastrointestinal: no abdominal pain, no nausea, no vomiting and no diarrhea/loose stools Physical Exam Constitutional: not in distress Eyes: PERRL, conjunctivae normal, anicteric sclerae ENMT: external ear and nose normal, oropharynx normal Neck: trachea midline, no thyromegaly Respiratory: normal respiratory effort, lungs clear to auscultation Cardiovascular: Rate/Rhythm: + irregularly irregular Gastrointestinal (Abdomen): normal bowel sounds, soft, nontender, no hepatosplenomegaly Skin: no rashes, warm and dry Neurologic: Speech / Cognition: normal speech and normal cognition Psychiatric: Affect: euthymic affect Results & Data Vital Signs (Past 12 Hours) Vital Signs Temp Pulse Resp BP Pulse Ox O2 Del Method 10/06/23 08:00 36.4 C L 65 16 144/69 H 96 Room Air 10/05/23 21:45 Room Air 10/05/23 21:43 36.6 C 58 L 16 163/75 H 97 Room Air PG Care Time/CCT Total # of Minutes Spent Total Time Spent with Patient: Total time spent is greater than 50% in coordination of care (as documented) at patient's floor/unit and/or counseling patient: Coding Level of Care Code 53642 SUB INP/OBS CARE 3/50MIN Diagnoses Acute kidney injury N17.9 Chronic kidney disease, stage 4 (severe) N18.4 Pericardial effusion I31.39 Acute UTI (urinary tract infection) N39.0 New onset atrial fibrillation I48.91 Anemia D64.9
--- NOTE | 2023-10-07 12:48 | Discharge Summary ---
Date of Service October 06, 2023 Admission HPI Per Admitting Provider Gian Bhakta is an 83 year old male who presents to the ER for right leg swelling following a fall 10 days ago. He reports falling while hiking 10 days ago and spending almost 6 hours on the ground until someone found him and were able to help him off the ground. He denies any dizziness, lightheadedness of chest pain prior to the fall and feels he tripped while using his two walking sticks and fell forward hitting his head but no loss of consciousness. He has been having chest pain since the fall but that is worse on palpation. His main concern is the swelling which is actually in both legs but worse on the right side which has progressively got worse since the fall. He denies any new weakness since the fall, no headache, other pains other than over his lower right anterior chest. Discharge Data Allergies Allergy/AdvReac Type Severity Reaction Status Date / Time atorvastatin [From Lipitor] Allergy Unknown Verified 09/15/23 14:16 Consultations 09/27/23 17:01 ED Decision to Admit Stat 09/28/23 12:02 Consult Cardiology Routine 10/02/23 07:59 Consult Nephrology Routine 10/03/23 08:27 Consult Urology Routine Procedures Performed Operation Date: 09/29/23 14:00 Actual Procedures p Pericardiocentesis Initial - Eric Telles MD Ordered Studies 09/27/23 14:14 US venous doppler LE RT Stat 09/27/23 17:28 CT head/brain wo con Stat 09/27/23 17:31 CT cervical spine wo con Stat 09/27/23 17:32 CT Abd and Pelvis [CT abd pelvis wo con] Stat CT chest diagnostic wo con Stat Hospital Course (1) Acute kidney injury: pt with prema on ckd4, started ivf cautiously on 09/30 as was initially with diastolic hf, this may have been secondary to pericardial effusion with tamponade physiology Improvement in BUN and creatinine will reinforce p.o. and continue continue holding lasix, concern if azotemia from Cefepime, did stop cefepime and changed to zosyn, with pharmacy renal dosing nephrology consult following reviewed BMP on 10/04 (2) New onset of congestive heart failure: concern for acute systolic and diastolic heart failure now may have been secondary to his tamponade physiology from traumatic pericardial effusion Possibility also atrial fibrillation contributing to acute on chronic diastolic heart failure atrial fibrillation present on admission, Status post pericardiocentesis on 09/29/23, 500 mL initial drain 150 later. Bloody fluid. Pericardial drain removed 09/30/23 Regarding new onset Atrial fibrillation not sure in permanent or paroxysmal, no need for rate controlling agents at this time Consider instituting anticoagulation therapy, given renal function will start low-dose apixaban mild troponin elevation likely demand ischemia CT Chest on presentation reveals some nodules, will benefit from repeat CT in 3 months (3) Fall: [address] head, c-spine, chest, abdomen, pelvis to rule out internal bleeding prior to starting anticoagulation subacute fractures of the anterior right fourth through seventh ribs and the a nterior left fifth and sixth ribs edema of RLE, Dopper negative on presentation, urine now did result in Klebsiella and Pseudomonas, >100,000, thus fall maybe metabolic encephalopahty and weakness,\ now on Zosyn therapy neurology did change suprapubic catheter on 10/03/2023 PT/OT, reevaluation patient feels now more weak and tired and is concerned about going home (4) DM (diabetes mellitus), type 2: Hemoglobin A1c 7.9 in July On 20 units Lantus QPM and Sitagliptin home medications Previous admission glucose was well-controlled on Lantus 5 units BID therefore continue on this NovoLog: --Goal BSG Range: Low 110 mg/dL, High 140 mg/dL --Correction Factor: 45 mg/dL/unit --Carbohydrate ratio = 15 g/unit --BSGs ACHS if eating, q6h if npo (5) Suprapubic catheter: Chronic changed by urology this hospital stay UA shows both Klebsiella and Pseudomonas with different sensitivities and resistance only placed on cefepime therapy close to Zosyn therapy however given these organisms likely will need a few days of intravenous antibiotics in the hospital. Concern of fall could be from metabolic encephalopathy from urinary tract in fection present on admission. The fall leading to a traumatic pericardial effusion Plan Diet - type 2 diabetes, heart healthy, low-sodium 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, this is well functioning Discharge Plan Discharge Items Patient Disposition: Home - Self-Care Reason For Visit: ACUTE HEART FAILURE WITH UNKNOWN EJECTION FRACTION Discharge Diagnosis: as above. Condition on Discharge: Good Activity: Resume your previous activity Non-emergency contact: Primary Care Provider Call non-emergency contact if: you have any medication questions Follow-up/Referrals: Ge Fall MD [Physician] - 10/10/23 3:00 pm (Nephrology follow up: Dr Ge Fall: October 10, 2023 @ 3:00) Bisi Rhodes [Primary Care Provider] - 10/14/23 9:25 am Diet: Carb Consistent or DM2, Heart Healthy and Low Sodium (2gm) Addtl Attending Provider Instructions: Please followup with PCP in 1 week. Recommend a followup echocardiogram in 1 week as an outpatient. Recommend followup with Nephrology in 1-2 weeks. Take cipro once a day in the evening Bacrtim twice a day start tonight. Pending Studies at Discharge: No Stand-Alone Forms: My [place], Smoking Cessation Medications and DC Order Prescriptions: New Probiotic 3 billion cell capsule 3,000 mmu cells PO DAILY Qty: 7 0RF Rx Instructions: administer with a meal sulfamethoxazole-trimethoprim [Bactrim] 400-80 mg tablet 1 tab PO BID Qty: 8 0RF Rx Instructions: First dose tonight ciprofloxacin HCl [Cipro] 500 mg tablet 500 mg PO DAILY Qty: 4 0RF Rx Instructions: First dose tonight Eliquis 2.5 mg Tablet 2.5 mg PO BID Qty: 30 0RF Continued cholecalciferol (vitamin D3) [Vitamin D3] 25 mcg (1,000 unit) tablet 2,000 unit PO DAILY Qty: 180 0RF amlodipine 2.5 mg tablet 2.5 mg PO DAILY Qty: 90 3RF ferrous sulfate 325 mg (65 mg iron) Tablet 325 mg PO QAM rosuvastatin 10 mg tablet 10 mg PO HS cyanocobalamin (vitamin B-12) [Vitamin B-12] 1,000 mcg tablet 1,000 mcg PO DAILY mupirocin 2 % ointment 1 applic TOPICAL TID trospium 60 mg capsule,extended release 24hr 60 mg PO DAILYBB Januvia 50 mg tablet 50 mg PO DAILY insulin glargine [Basaglar KwikPen U-100 Insulin] 100 unit/mL (3 mL) insulin pen 20 unit SUBCUT PM Tylenol See Rx Instructions .ROUTE .COMPLEX PRN (Reason: Pain) Rx Instructions: otc as directed Discharge Orders: Discharge Order (Routine); Ordered 10/06/23 Ordered By: Maximo Weller Admission Data Admit Date/Time: 09/27/23 17:43 Attending Provider: Maximo Weller Admit Provider: Michael Holman Primary Care Provider: Bisi Rhodes Other Providers: IRB Approved Study,Jin; Michael Holman; Jasbir Clifford; Ge Fall Other Interventions: Discharge Summary Assessment (RN) Last Done: 10/06/23 12:30 Coding Diagnoses Acute kidney injury N17.9 New onset of congestive heart failure I50.9 Fall W19.XXXA DM (diabetes mellitus), type 2 E11.9 Suprapubic catheter Z93.59
== END 2023-10-06 15:00 | disposition home or self-care (01) | DRG 314 ==
LOC: ED 13:39 → SUATTDRO 17:43 → 2N 17:43 → 1E 09-29 16:22 → 2S 10-03 15:28 → 3W 10-05 21:35
DX: I48.91 Unspecified atrial fibrillation; I31.4 Cardiac tamponade; Y93.01 Activity, walking, marching and hiking; I50.41 Acute combined systolic (congestive) and diastolic (congestive) heart failure; E11.9 Type 2 diabetes mellitus without complications; I13.0 Hypertensive heart and chronic kidney disease with heart failure and stage 1 through stage 4 chronic kidney disease, or unspecified chronic kidney disease; Z66 Do not resuscitate; M79.89 Other specified soft tissue disorders; N18.4 Chronic kidney disease, stage 4 (severe); N17.9 Acute kidney failure, unspecified; S22.43XA Multiple fractures of ribs, bilateral, initial encounter for closed fracture; Y92.821 Forest as the place of occurrence of the external cause; Z79.4 Long term (current) use of insulin; N39.0 Urinary tract infection, site not specified; B96.5 Pseudomonas (aeruginosa) (mallei) (pseudomallei) as the cause of diseases classified elsewhere; B96.1 Klebsiella pneumoniae [K. pneumoniae] as the cause of diseases classified elsewhere; Z92.3 Personal history of irradiation; Z85.048 Personal history of other malignant neoplasm of rectum, rectosigmoid junction, and anus; Z93.51 Cutaneous-vesicostomy status; G93.41 Metabolic encephalopathy; J81.1 Chronic pulmonary edema; Z93.3 Colostomy status; I31.39 Other pericardial effusion (noninflammatory); W01.0XXA Fall on same level from slipping, tripping and stumbling without subsequent striking against object, initial encounter

== ENCOUNTER 2023-10-09 13:43 | Inpatient (IN) ==
--- NOTE | 2023-10-09 14:21 | Emergency Department Note ---
Impression & Plan Generalized weakness, Acute confusion, Non-ST elevation MS (NSTEMI), Leucocytosis, Acute CVA (cerebrovascular accident) ED Provider Note HISTORY OF PRESENT ILLNESS: Patient is an 83-year-old male presenting with generalized weakness. Patient reports he woke up this morning and had difficulties getting out of bed secondary to his weakness. States that he has generalized weakness and is not focal. Denies any recent falls or head injuries. Denies any chiropractic manipulation of his neck. Denies any chest pain or shortness of breath. Denies any abdominal pain, nausea or vomiting. He has recently been admitted was just discharged from the hospital 3 days ago. Patient is on Eliquis. Patient reports he was trying to get out of his chair today to get up to take his medications when he was too weak and his legs gave out, causing him to slide back into the chair and partly onto the floor. His neighbor checked on him this morning and found him half in his chair. Patient's last known reported well was around 7 PM last night when his son spoke to him on the phone. ROS: as above PHYSICAL EXAM: Constitutional: Patient appears in no acute distress. HENT: Head: Normocephalic and atraumatic. Eyes: EOMI, PERRL Mouth/Throat: Mucous membranes moist. Neck: Trachea midline. Neck supple. Cardiovascular: Irregular rhythm. No murmurs, rubs or gallops. Intact distal pulses. Pulmonary/Chest: No respiratory distress. Breath sounds clear and equal bilaterally. No wheezes or rales. Abdominal: Abdomen soft, no tenderness, rebound or guarding. Colostomy in place on the right side of the abdomen. Musculoskeletal: No edema, tenderness or deformity noted. Skin: Warm and dry. No rash, erythema, pallor or cyanosis Psychiatric: Appropriate mood and affect for situation. Neurological: Alert and keenly responsive. CN II-XII grossly intact, moving all extremities equally and fully. MDM: - Vitals signs showed hypertension, tachycardia and tachypnea. - History obtained via patient. History as above. - Chronic conditions affecting care: rectal cancer (s/p colostomy); HTN; HLD; DM-2; BPH; urinary retention; CHF; Afib - Differential diagnoses include, but are not limited to: UTI; pneumonia; viral syndrome; ACS; intracranial hemorrhage; CVA - Order placed for continuous cardiac monitoring. At this time, monitor showed rate of 91 bpm with irregular rhythm, per my interpretation. - External medical records reviewed. Discharge summary dated 10/07/2023 was reviewed. Patient was admitted at that time for [place], new onset of congestive heart failure and a fall. - EKG interpreted by myself showed atrial fibrillation. Rate 80 bpm. QT prolonged at 432. No acute ischemic changes. - Laboratory workup interpreted by myself showed leukocytosis (WBC 11.0) with left shift; stable electrolytes; elevated anion gap (12); CKD (Cr 2.67); normal CK; elevated troponin (29.4); normal procalcitonin; elevated BNP (1073) - Blood cultures obtained - UA negative for infection - CXR showed pulmonary vascular congestion, per my interpretation. Radiology notes small pleural effusions wiht bibasilar consolidation. - Patient has history of CHF and was recently admitted for heart failure, so fluids were not aggressively given for sepsis. - Given 2g IV rocephin empirically. - Viral respiratory panel negative - Alerted by radiology at 15:[address] head wo contrast showed an large acute right temporoparietal infarct. - Discussed case with Dr. Kidd at [facility] about patient's large stroke at 15:41. Will log into cart. - CTA head/neck showed acute right cerebral infarction. No LVO - Again discussed case with Dr. Kidd at 16:30 after he evaluated the patient. He does not see an LVO. Patient is not a TNK candidate, given unknown last known well. Patient has missed a few doses of Eliquis, and in the setting of his A-fib history, this may be the source of his CVA. Dr. Denton recommend an MRI brain and echocardiogram. He recommended holding the patient's Eliquis for the tonight. Recommended SBP <180. - Discussion was had with case briefer about patient's case and need for admission - Hospitalist consulted for admission - Patient admitted to [facility] service for further evaluation and management. ASSESSMENT AND PLAN: Diagnosis: generalized weakness; acute confusion; NSTEMI; leukocytosis; elevated BNP; acute CVA Plan: transfer Past Med/Surg History Problem List (Updated 10/09/23 @ 16:40 by Arlene Bennett MD) Acute CVA (cerebrovascular accident) (Acute) Leucocytosis (Acute) Non-ST elevation MS (NSTEMI) (Acute) Acute confusion (Acute) Generalized weakness (Acute) Chronic kidney disease, stage 4 (severe) Pericardial effusion Cardiomegaly (Acute) Edema of right lower extremity (Acute) Rib pain (Acute) New onset of congestive heart failure New onset atrial fibrillation (Acute) Fall (Acute) Food impaction of esophagus Esophageal abnormality (Acute) Acute UTI (urinary tract infection) (Acute) Vomiting (Acute) Acute kidney injury Skin lesion History of urinary retention Suprapubic catheter Benign prostatic hyperplasia with urinary obstruction and other lower urinary tract symptoms (Acute) DM (diabetes mellitus), type 2 (Acute) Hyperlipidemia (Acute) Hypertension (Acute) Urinary retention (Acute) Anemia Vitamin D deficiency Diabetes Diarrhea Obstructive uropathy (Chronic) Pre-syncope Rectal cancer (Chronic 06/17/17) "Rectal bleeding Status post colonoscopy and biopsy 06/17/2017 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 Plan for combined radiation and chemotherapy followed by possible resection Status post completion of combined radiation and chemotherapy August 30, 2017." On 07/07/17 13:09 Felicia Hannon wrote "Rectal bleeding Status post colonoscopy and biopsy 06/17/2017 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 Plan for combined radiation and chemotherapy followed by possible resection" Medical History Jewell UTI 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 Chronic kidney disease, stage III (moderate) Family History Other Family history non-contributory Social History Smoking Status: Never smoker Hx Alcohol Use: No Hx Substance Use: No Preferred Language: [place] Communication Ability: Effective Visual Impairment: No Limitations 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: Normal Safe And Vault Installer Required: No Beliefs That Will Affect Care: None marital status: / Current Living Situation: Alone Current Living Situation Comment: home current occupational status: retired Feels Safe at Home: Yes Assistive Devices: None Allergies Allergies Allergy/AdvReac Type Severity Reaction Status Date / Time atorvastatin [From Lipitor] Allergy Unknown Verified 10/09/23 15:22 Home Meds Home Medications Medication Instructions Recorded Confirmed ferrous sulfate 325 mg (65 mg 325 mg PO QAM 02/24/18 10/09/23 iron) tablet rosuvastatin 10 mg tablet 10 mg PO HS 02/24/18 10/09/23 cyanocobalamin (vitamin B-12) 1,000 mcg PO DAILY 12/19/19 10/09/23 1,000 mcg tablet (Vitamin B-12) trospium 60 mg capsule,extended 60 mg PO DAILYBB 04/18/23 10/09/23 release 24 hr insulin glargine 100 unit/mL (3 20 unit subcut PM 09/27/23 10/09/23 mL) subcutaneous pen (Basaglar KwikPen U-100 Insulin) sitagliptin phosphate 50 mg tablet 50 mg PO DAILY 09/27/23 10/09/23 (Januvia) Previous Rx's Medication Instructions Recorded cholecalciferol (vitamin D3) 25 2,000 unit PO DAILY #180 tabs 04/25/20 mcg (1,000 unit) tablet (Vitamin D3) amlodipine 2.5 mg tablet 2.5 mg PO DAILY #90 tabs 09/25/21 apixaban 2.5 mg tablet (Eliquis) 2.5 mg PO BID #30 tabs 10/05/23 ciprofloxacin HCl 500 mg tablet 500 mg PO DAILY #4 tabs 10/05/23 (Cipro) sulfamethoxazole 400 1 tab PO BID #8 tabs 10/05/23 mg-trimethoprim 80 mg tablet (Bactrim) Results & Data (ED) Vital Signs Vital Signs - 24 hr 10/09/23 13:37 10/09/23 13:37 10/09/23 13:51 Temperature 36.5 C Temperature Source Oral Pulse Rate 80 90 Pulse Rate from SpO2 Sensor Respiratory Rate 36 H 11 L Respiratory Effort / Characteristics Non-Labored Spontaneous Respiratory Depth Normal Respiratory Pattern Regular Blood Pressure 141/92 H Blood Pressure Mean 108 Pulse Oximetry 96 96 Oxygen Delivery Method Room Air Room Air Oxygen Flow Rate 0 Sepsis Recent Fever Within 48 Hours No Sepsis New/Unexplained Change in Mental Status Yes Sepsis Action Taken by Nursing Physician Notified 10/09/23 13:51 10/09/23 14:00 10/09/23 14:15 Temperature Temperature Source Pulse Rate 86 80 Pulse Rate from SpO2 Sensor 88 88 Respiratory Rate 21 21 Respiratory Effort / Characteristics Respiratory Depth Respiratory Pattern Blood Pressure 141/92 H Blood Pressure Mean 106 Pulse Oximetry 99 90 Oxygen Delivery Method Oxygen Flow Rate Sepsis Recent Fever Within 48 Hours Sepsis New/Unexplained Change in Mental Status Sepsis Action Taken by Nursing 10/09/23 14:20 10/09/23 14:24 10/09/23 14:24 Temperature Temperature Source Pulse Rate 72 Pulse Rate from SpO2 Sensor 80 Respiratory Rate 15 Respiratory Effort / Characteristics Respiratory Depth Respiratory Pattern Blood Pressure 162/91 H Blood Pressure Mean 107 Pulse Oximetry 99 98 Oxygen Delivery Method Room Air Room Air Oxygen Flow Rate Sepsis Recent Fever Within 48 Hours Sepsis New/Unexplained Change in Mental Status Sepsis Action Taken by Nursing 10/09/23 14:25 10/09/23 14:30 10/09/23 14:30 Temperature Temperature Source Pulse Rate 92 H 72 Pulse Rate from SpO2 Sensor Respiratory Rate 15 Respiratory Effort / Characteristics Respiratory Depth Respiratory Pattern Blood Pressure 161/101 H Blood Pressure Mean 106 Pulse Oximetry Oxygen Delivery Method Oxygen Flow Rate Sepsis Recent Fever Within 48 Hours Sepsis New/Unexplained Change in Mental Status Sepsis Action Taken by Nursing 10/09/23 14:45 10/09/23 15:00 10/09/23 15:01 Temperature Temperature Source Pulse Rate 79 71 Pulse Rate from SpO2 Sensor 75 Respiratory Rate 20 23 Respiratory Effort / Characteristics Respiratory Depth Respiratory Pattern Blood Pressure 155/82 H 155/82 H Blood Pressure Mean 106 113 Pulse Oximetry 95 Oxygen Delivery Method Room Air Oxygen Flow Rate Sepsis Recent Fever Within 48 Hours Sepsis New/Unexplained Change in Mental Status Sepsis Action Taken by Nursing 10/09/23 15:01 10/09/23 15:18 10/09/23 15:19 Temperature Temperature Source Pulse Rate 73 79 74 Pulse Rate from SpO2 Sensor 75 89 78 Respiratory Rate 22 14 16 Respiratory Effort / Characteristics Respiratory Depth Respiratory Pattern Blood Pressure Blood Pressure Mean Pulse Oximetry 98 91 95 Oxygen Delivery Method Room Air Oxygen Flow Rate Sepsis Recent Fever Within 48 Hours Sepsis New/Unexplained Change in Mental Status Sepsis Action Taken by Nursing 10/09/23 15:19 10/09/23 15:30 10/09/23 15:30 Temperature Temperature Source Pulse Rate 71 Pulse Rate from SpO2 Sensor 75 Respiratory Rate 16 Respiratory Effort / Characteristics Respiratory Depth Respiratory Pattern Blood Pressure 168/82 H 170/96 H Blood Pressure Mean 91 114 Pulse Oximetry 98 Oxygen Delivery Method Room Air Oxygen Flow Rate Sepsis Recent Fever Within 48 Hours Sepsis New/Unexplained Change in Mental Status Sepsis Action Taken by Nursing 10/09/23 15:49 10/09/23 15:49 Temperature Temperature Source Pulse Rate 68 Pulse Rate from SpO2 Sensor Respiratory Rate 22 Respiratory Effort / Characteristics Respiratory Depth Respiratory Pattern Blood Pressure 150/87 H Blood Pressure Mean 101 Pulse Oximetry Oxygen Delivery Method Oxygen Flow Rate Sepsis Recent Fever Within 48 Hours Sepsis New/Unexplained Change in Mental Status Sepsis Action Taken by Nursing Laboratory Data 10/09/23 14:00 10/09/23 14:00 Lab Results 10/09/23 10/09/23 10/09/23 Range/Units 13:56 14:00 14:33 WBC 11.00 H (4.8-10.8) K/ul RBC 4.34 L (4.70-6.10) M/uL Hgb 11.7 L (14.0-18.0) g/dl Hct 37.6 L (42.0-52.0) % MCV 86.6 (80.0-100.0) fL MCH 27.0 (25.0-34.0) pg MCHC 31.1 L (32.0-36.0) g/dL RDW Std Deviation 50.1 H (36.4-46.3) fL RDW Coeff of Timoteo 15.9 H (11.5-14.5) % Plt Count 392 (130-400) K/uL MPV 9.3 L (9.4-12.4) fL Immature Gran % (Auto) 0.6 % Neut % (Auto) 93.5 % Lymph % (Auto) 2.5 % [place] % (Auto) 2.9 % Eos % (Auto) 0.1 % Baso % (Auto) 0.4 % Neut # (Auto) 10.28 H (1.40-6.50) K/uL Lymph # (Auto) 0.28 L (1.20-3.40) K/uL [place] # (Auto) 0.32 (0.11-0.59) K/uL Eos # (Auto) 0.01 (0.00-0.50) K/uL Baso # (Auto) 0.04 (0.00-0.20) K/uL Immature Gran # (Auto) 0.07 (0.01-0.20) K/uL Sodium 140 (136-145) mmol/L Potassium 4.8 (3.5-5.1) mmol/L Chloride 110 H (98-107) mmol/L Carbon Dioxide 18 L (21-32) mmol/L Anion Gap 12 H (3-11) BUN 44 H (6-23) mg/dl Creatinine 2.67 H (0.6-1.4) mg/dl Est Cr Clr Drug Dosing 22.7 ml/min Est GFR ( Amer) 24.5 ml/min Est GFR (Non-Af Amer) 21.1 ml/min BUN/Creatinine Ratio 16.5 (10-20) Glucose 161 H (70-99(Fasting)) mg/dl POC Glucose 158 H (70-99) mg/dl Lactate (0.4-2.0) mmol/L Calcium 9.4 (8.6-10.3) mg/dl Magnesium 2.0 (1.7-2.4) mg/dl Total Bilirubin 0.5 (0.2-1.0) mg/dl Direct Bilirubin 0.1 (0-0.2) mg/dl AST 17 (13-39) U/L ALT 18 (7-52) U/L Alkaline Phosphatase 150 H (34-104) U/L Total Creatine Kinase 71 (30-223) U/L Troponin I High Sens 29.4 H (0-20) pg/ml B-Natriuretic Peptide (0-100) pg/ml Total Protein 7.5 (6.0-8.3) gm/dl Albumin 3.6 (3.4-5.0) gm/dl Procalcitonin 0.10 (0-0.5) ng/ml Urine Color Yellow Urine Appearance Cloudy A (Clear) Urine pH 5.5 (4.5-7.5) Ur Specific Jackson 1.013 (1.000-1.030) Urine Protein 3+ H (Negative) Urine Glucose (UA) Negative (Negative) Urine Ketones Negative (Negative) Urine Blood 3+ H (Negative) Urine Nitrite Negative (Negative) Urine Bilirubin Negative (Negative) Urine Urobilinogen Negative (Negative) Ur Leukocyte Esterase 1+ H (Negative) Urine WBC (Auto) >50 H (0-5) /hpf Urine RBC (Auto) 11-20 H (0-2) /hpf U Hyaline Cast (Auto) >20 H (0-2) /lpf U Epithel Cells (Auto) 0-2 (0-2) /hpf Urine Bacteria (Auto) None Seen (None Seen) Urine Yeast Present A (None Prsent) Adenovirus (PCR) Not Detected (NotDetected) B. pertussis DNA (PCR) Not Detected (NotDetected) B.parapertussis DNA PCR Not Detected (NotDetected) C. pneumoniae DNA (PCR) Not Detected (NotDetected) Coronavirus OC43 (PCR) Not Detected (NotDetected) Coronavirus HKU1 (PCR) Not Detected (NotDetected) Coronavirus 229E (PCR) Not Detected (NotDetected) SARS-CoV-2 (PCR) Not Detected (NotDetected) Coronavirus NL63 (PCR) Not Detected (NotDetected) Human Metapneumovir PCR Not Detected (NotDetected) Influenza Type A (PCR) Not Detected (NotDetected) Influenza Type B (PCR) Not Detected (NotDetected) M. pneumoniae (PCR) Not Detected (NotDetected) Parainfluenza 1 (PCR) Not Detected (NotDetected) Parainfluenza 2 (PCR) Not Detected (NotDetected) Parainfluenza 3 (PCR) Not Detected (NotDetected) Parainfluenza 4 (PCR) Not Detected (NotDetected) RSV (PCR) Not Detected (NotDetected) Entero/Rhino (PCR) Not Detected (NotDetected) 10/09/23 10/09/23 Range/Units 14:48 14:58 WBC (4.8-10.8) K/ul RBC (4.70-6.10) M/uL Hgb (14.0-18.0) g/dl Hct (42.0-52.0) % MCV (80.0-100.0) fL MCH (25.0-34.0) pg MCHC (32.0-36.0) g/dL RDW Std Deviation (36.4-46.3) fL RDW Coeff of Timoteo (11.5-14.5) % Plt Count (130-400) K/uL MPV (9.4-12.4) fL Immature Gran % (Auto) % Neut % (Auto) % Lymph % (Auto) % [place] % (Auto) % Eos % (Auto) % Baso % (Auto) % Neut # (Auto) (1.40-6.50) K/uL Lymph # (Auto) (1.20-3.40) K/uL [place] # (Auto) (0.11-0.59) K/uL Eos # (Auto) (0.00-0.50) K/uL Baso # (Auto) (0.00-0.20) K/uL Immature Gran # (Auto) (0.01-0.20) K/uL Sodium (136-145) mmol/L Potassium (3.5-5.1) mmol/L Chloride (98-107) mmol/L Carbon Dioxide (21-32) mmol/L Anion Gap (3-11) BUN (6-23) mg/dl Creatinine (0.6-1.4) mg/dl Est Cr Clr Drug Dosing ml/min Est GFR ( Amer) ml/min Est GFR (Non-Af Amer) ml/min BUN/Creatinine Ratio (10-20) Glucose (70-99(Fasting)) mg/dl POC Glucose (70-99) mg/dl Lactate 1.2 (0.4-2.0) mmol/L Calcium (8.6-10.3) mg/dl Magnesium (1.7-2.4) mg/dl Total Bilirubin (0.2-1.0) mg/dl Direct Bilirubin (0-0.2) mg/dl AST (13-39) U/L ALT (7-52) U/L Alkaline Phosphatase (34-104) U/L Total Creatine Kinase (30-223) U/L Troponin I High Sens (0-20) pg/ml B-Natriuretic Peptide 1073 H (0-100) pg/ml Total Protein (6.0-8.3) gm/dl Albumin (3.4-5.0) gm/dl Procalcitonin (0-0.5) ng/ml Urine Color Urine Appearance (Clear) Urine pH (4.5-7.5) Ur Specific Jackson (1.000-1.030) Urine Protein (Negative) Urine Glucose (UA) (Negative) Urine Ketones (Negative) Urine Blood (Negative) Urine Nitrite (Negative) Urine Bilirubin (Negative) Urine Urobilinogen (Negative) Ur Leukocyte Esterase (Negative) Urine WBC (Auto) (0-5) /hpf Urine RBC (Auto) (0-2) /hpf U Hyaline Cast (Auto) (0-2) /lpf U Epithel Cells (Auto) (0-2) /hpf Urine Bacteria (Auto) (None Seen) Urine Yeast (None Prsent) Adenovirus (PCR) (NotDetected) B. pertussis DNA (PCR) (NotDetected) B.parapertussis DNA PCR (NotDetected) C. pneumoniae DNA (PCR) (NotDetected) Coronavirus OC43 (PCR) (NotDetected) Coronavirus HKU1 (PCR) (NotDetected) Coronavirus 229E (PCR) (NotDetected) SARS-CoV-2 (PCR) (NotDetected) Coronavirus NL63 (PCR) (NotDetected) Human Metapneumovir PCR (NotDetected) Influenza Type A (PCR) (NotDetected) Influenza Type B (PCR) (NotDetected) M. pneumoniae (PCR) (NotDetected) Parainfluenza 1 (PCR) (NotDetected) Parainfluenza 2 (PCR) (NotDetected) Parainfluenza 3 (PCR) (NotDetected) Parainfluenza 4 (PCR) (NotDetected) RSV (PCR) (NotDetected) Entero/Rhino (PCR) (NotDetected) Administered Medications Discontinued Medications Ceftriaxone Sodium (Rocephin) 2,000 mg in 50 mls @ 100 mls/hr IV NOW STA Stop: 10/09/23 15:39 Last Infusion: 10/09/23 15:50 Dose: Infused Documented By: Admin: 10/09/23 15:20 Dose: 100 mls/hr Documented By: NOLBERTO Ioversol (Optiray 320 125ml) 118 ml IV ONCE ONE Stop: 10/09/23 15:43 Last Admin: 10/09/23 15:42 Dose: 118 ml Documented By: EDK Imaging Data Radiologist's Impression: Head CT 10/09/23 14:19 CT head/brain wo con CLINICAL HISTORY: 83 years-old Male with altered mental status. TECHNIQUE: Multiple axial CT images of the head were obtained without contrast. A dose lowering technique was utilized adhering to the principles of ALARA. CT DOSE: 625.8 mGy.cm COMPARISON: None. FINDINGS: There is a large acute territorial infarct within the right temporal parietal lobe with cytotoxic edema resulting in blurring of the sosa-white interface. This measures up to approximately 6 cm on image 24 series 2 and may be larger on image 19 series 2. There is no acute intracranial hemorrhage, midline shift, intracranial mass, hydrocephalus, or abnormal extra-axial collection. Involutional changes with chronic microvascular ischemic disease. The calvarium is intact. The paranasal sinuses, mastoid air cells, and middle ear cavities are clear. IMPRESSION: 1. Large acute right temporoparietal infarct. 2. No acute intracranial hemorrhage or midline shift. ACT 112: Negative or not required by law. The above report was generated using voice recognition software. It may contain grammatical, syntax or spelling errors. Electronically signed by: Uday Becerra M.D. 10/09/2023 3:29 PM Chest X-Ray 10/09/23 14:20 XR chest 1V portable HISTORY: 83 years-old Male Sepsis COMPARISON: 09/27/2023 TECHNIQUE: AP view of the chest FINDINGS: Cardiac silhouette is enlarged. Pulmonary vascular congestion. Small pleural effusions with mild bibasilar consolidation. Bones appear grossly intact. 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 IMPRESSION: 1. Cardiomegaly with pulmonary vascular congestion. 2. Small pleural effusions with mild bibasilar consolidation. ACT 112: Negative or not required by law. The above report was generated using voice recognition software. It may contain grammatical, syntax or spelling errors. Electronically signed by: Uday Becerra M.D. 10/09/2023 2:46 PM Head CTA 10/09/23 15:30 CT angio head w con, CT angio neck with con CLINICAL HISTORY: 83 years-old Male with CVA; confusion. Acutely altered mental status with strokelike symptoms COMPARISON STUDY: Head CT of same day TECHNIQUE: Following the IV administration of 118 cc of Optiray, CT angiogram of the head and neck was performed from the aortic arch to the apex. Images are reviewed in the axial, sagittal, and coronal planes. 3-D MIPS images are created and assessed. IV contrast was administered without complication. All measurements were obtained according to NASCET criteria. A dose lowering technique was utilized adhering to the principles of ALARA. CT DOSE: 465.05 mGy.cm FINDINGS: Acute appearing right cerebral infarct redemonstrated. Layering left pleural effusion. No pneumothorax. Unremarkable appearance of the soft tissues of the neck. Degenerative changes of the cervical spine. CT ANGIOGRAM OF THE HEAD AND NECK: Three-vessel morphology of the thoracic arch. Patency of the innominate and imaged subclavian arteries. Common carotid arteries are patent. Moderate atherosclerosis of the carotid bulbs without high-grade stenosis. Internal carotid arteries are patent. The bilateral anterior and middle cerebral arteries are also patent. The vertebrobasilar system and posterior cerebral arteries are widely patent. There is no aneurysm, high-grade stenosis, or proximal branch occlusion identified. Dural sinuses appear patent. IMPRESSION: 1. Acute right cerebral infarct is better evaluated on the same day head CT. 2. Unremarkable CTA of the head and neck. ACT 112: Negative or not required by law. The above report was generated using voice recognition software. It may contain grammatical, syntax or spelling errors. Electronically signed by: Uday Becerra M.D. 10/09/2023 4:19 PM Neck CTA 10/09/23 15:30 CT angio head w con, CT angio neck with con CLINICAL HISTORY: 83 years-old Male with CVA; confusion. Acutely altered mental status with strokelike symptoms COMPARISON STUDY: Head CT of same day TECHNIQUE: Following the IV administration of 118 cc of Optiray, CT angiogram of the head and neck was performed from the aortic arch to the apex. Images are reviewed in the axial, sagittal, and coronal planes. 3-D MIPS images are created and assessed. IV contrast was administered without complication. All measurements were obtained according to NASCET criteria. A dose lowering technique was utilized adhering to the principles of ALARA. CT DOSE: 465.05 mGy.cm FINDINGS: Acute appearing right cerebral infarct redemonstrated. Layering left pleural effusion. No pneumothorax. Unremarkable appearance of the soft tissues of the neck. Degenerative changes of the cervical spine. CT ANGIOGRAM OF THE HEAD AND NECK: Three-vessel morphology of the thoracic arch. Patency of the innominate and imaged subclavian arteries. Common carotid arteries are patent. Moderate atherosclerosis of the carotid bulbs without high-grade stenosis. Internal carotid arteries are patent. The bilateral anterior and middle cerebral arteries are also patent. The vertebrobasilar system and posterior cerebral arteries are widely patent. There is no aneurysm, high-grade stenosis, or proximal branch occlusion identified. Dural sinuses appear patent. IMPRESSION: 1. Acute right cerebral infarct is better evaluated on the same day head CT. 2. Unremarkable CTA of the head and neck. ACT 112: Negative or not required by law. The above report was generated using voice recognition software. It may contain grammatical, syntax or spelling errors. Electronically signed by: Uday Becerra M.D. 10/09/2023 4:19 PM Discharge Plan Visit Data Chief Complaint: Weakness ED Provider: Arlene Bennett Discharge Problem: Generalized weakness, Acute confusion, Non-ST elevation MS (NSTEMI), Leucocytosis, Acute CVA (cerebrovascular accident) Forms Stand Alone Forms: [facility] Prescriptions Prescriptions: No Action cholecalciferol (vitamin D3) [Vitamin D3] 25 mcg (1,000 unit) tablet 2,000 unit PO DAILY Qty: 180 0RF amlodipine 2.5 mg tablet 2.5 mg PO DAILY Qty: 90 3RF ferrous sulfate 325 mg (65 mg iron) Tablet 325 mg PO QAM rosuvastatin 10 mg tablet 10 mg PO HS cyanocobalamin (vitamin B-12) [Vitamin B-12] 1,000 mcg tablet 1,000 mcg PO DAILY trospium 60 mg capsule,extended release 24hr 60 mg PO DAILYBB Januvia 50 mg tablet 50 mg PO DAILY insulin glargine [Basaglar KwikPen U-100 Insulin] 100 unit/mL (3 mL) insulin pen 20 unit SUBCUT PM sulfamethoxazole-trimethoprim [Bactrim] 400-80 mg tablet 1 tab PO BID Qty: 8 0RF Rx Instructions: First dose tonight ciprofloxacin HCl [Cipro] 500 mg tablet 500 mg PO DAILY Qty: 4 0RF Rx Instructions: First dose tonight Eliquis 2.5 mg Tablet 2.5 mg PO BID Qty: 30 0RF Referrals Referrals: Bisi Rhodes [Primary Care Provider] -
[2023-10-09 14:40] LABS: Hematocrit (blood only) 37.6 % (42.0-52.0); Hemoglobin 11.7 g/dl (14.0-18.0); Mean Corpuscular Hgb Conc 31.1 g/dL (32.0-36.0); Mean Corpuscular Volume 86.6 fL (80.0-100.0); Mean Platelet Volume 9.3 fL (9.4-12.4); Platelet Count 392 K/uL (130-400); RDW Coefficient of Variation 15.9 % (11.5-14.5); RDW Standard Deviation 50.1 fL (36.4-46.3); Red Blood Count 4.34 M/uL (4.70-6.10)
--- NOTE | 2023-10-09 14:47 | XRay Report ---
XR chest 1V portable HISTORY: 83 years-old Male Sepsis COMPARISON: 09/27/2023 TECHNIQUE: AP view of the chest FINDINGS: Cardiac silhouette is enlarged. Pulmonary vascular congestion. Small pleural effusions with mild biba silar consolidation. Bones appear grossly intact. 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 IMPRESSION: 1. Cardiomegaly with pulmonary vascular congestion. 2. Small pleural effusions with mild bibasilar consolidation. ACT 112: Negative or not required by law. The above report was generated using voice recognition software. It may contain grammatical, syntax o r spelling errors. Electronically signed by: Uday Becerra M.D. 10/09/2023 2:46 PM
[2023-10-09 14:54] LABS: Appearance Urine Cloudy (Clear); Bacteria Urine Automated None Seen (None Seen); Bilirubin Urine Negative (Negative); Blood Urine 3+ (Negative); Cast Urine Automated >20 /lpf (0-2); Color Urine Yellow; Epithelial Cell Urine Auto 0-2 /hpf (0-2); Glucose Urine UA Negative (Negative); Ketones Urine Negative (Negative); Leukocyte Esterase Urine 1+ (Negative); Nitrite Urine Negative (Negative); Protein Urine 3+ (Negative); Specific Gravity Urine 1.013 (1.000-1.030); Urobilinogen Urine Negative (Negative); WBC Urine Automated >50 /hpf (0-5); pH Urine 5.5 (4.5-7.5)
[2023-10-09 14:58] LABS: Basophils # (auto) 0.04 K/uL (0.00-0.20); Basophils % (auto) 0.4 %; Eosinophils # (auto) 0.01 K/uL (0.00-0.50); Eosinophils % (auto) 0.1 %; Immature Granulocytes # (auto) 0.07 K/uL (0.01-0.20); Immature Granulocytes % (auto) 0.6 %; Lymphocytes # (auto) 0.28 K/uL (1.20-3.40); Lymphocytes % (auto) 2.5 %; Monocytes # (auto) 0.32 K/uL (0.11-0.59); Monocytes % (auto) 2.9 %; Neutrophils # (auto) 10.28 K/uL (1.40-6.50); Neutrophils % (auto) 93.5 %
[2023-10-09 15:01] LABS: Albumin Level 3.6 gm/dl (3.4-5.0); BUN Creatinine Ratio 16.5 (10-20); Bilirubin Direct 0.1 mg/dl (0-0.2); Bilirubin,Total 0.5 mg/dl (0.2-1.0); Calcium 9.4 mg/dl (8.6-10.3); Creatinine Clr Calc Pharmacy 22.7 ml/min; Est GFR (African American) 24.5 ml/min; Est GFR (Non-African American) 21.1 ml/min; Potassium 4.8 mmol/L (3.5-5.1); Total Protein 7.5 gm/dl (6.0-8.3)
[2023-10-09 15:08] LABS: Troponin I High Sensitivity 29.4 pg/ml (0-20)
[2023-10-09] MEDS: cefTRIAXone SODIUM 2,000 MG/50 ML BAG IV STA (15:20)
--- NOTE | 2023-10-09 15:32 | CT Scan Report ---
CT head/brain wo con CLINICAL HISTORY: 83 years-old Male with altered mental status. TECHNIQUE: Multiple axial CT images of the head were obtained without contrast. A dose lowering tech nique was utilized adhering to the principles of ALARA. CT DOSE: 625.8 mGy.cm COMPARISON: None. FINDINGS: There is a large acute territorial infarct within the right temporal parietal lobe with cytotoxic mariya ma resulting in blurring of the sosa-white interface. This measures up to approximately 6 cm on image 24 series 2 and may be larger on image 19 series 2. There is no acute intracranial hemorrhage, midli ne shift, intracranial mass, hydrocephalus, or abnormal extra-axial collection. Involutional changes with chronic microvascular ischemic disease. The calvarium is intact. The paranasal sinuses, mastoid air cells, and middle ear cavities are clear . IMPRESSION: 1. Large acute right temporoparietal infarct. 2. No acute intracranial hemorrhage or midline shift. ACT 112: Negative or not required by law. The above report was generated using voice recognition software. It may contain grammatical, syntax o r spelling errors. Electronically signed by: Uday Becerra M.D. 10/09/2023 3:29 PM
[2023-10-09 15:40] LABS: Adenovirus PCR Not Detected (NotDetected); Bordetella parapertussis PCR Not Detected (NotDetected); Bordetella pertussis PCR Not Detected (NotDetected); Chlamydia pneumoniae PCR Not Detected (NotDetected); Coronavirus 229E PCR Not Detected (NotDetected); Coronavirus CoV-2 (COVID19)PCR Not Detected (NotDetected); Coronavirus HKU1 PCR Not Detected (NotDetected); Coronavirus NL63 PCR Not Detected (NotDetected); Coronavirus OC43PCR Not Detected (NotDetected); Human Metapneumovirus PCR Not Detected (NotDetected); Influenza A PCR Not Detected (NotDetected); Influenza B PCR Not Detected (NotDetected); Mycoplasma pneumoniae PCR Not Detected (NotDetected); Parainfluenza Virus 1 PCR Not Detected (NotDetected); Parainfluenza Virus 2 PCR Not Detected (NotDetected); Parainfluenza Virus 3 PCR Not Detected (NotDetected); Parainfluenza Virus 4 PCR Not Detected (NotDetected); Respiratory Syncytial VirusPCR Not Detected (NotDetected); Rhinovirus/Enterovirus PCR Not Detected (NotDetected)
[2023-10-09] MEDS: OPTIRAY 320 125ml IV ONE (15:42)
--- NOTE | 2023-10-09 16:21 | CT Scan Report ---
CT angio head w con, CT angio neck with con CLINICAL HISTORY: 83 years-old Male with CVA; confusion. Acutely altered mental status with stroke like symptoms COMPARISON STUDY: Head CT of same day TECHNIQUE: Following the IV administration of 118 cc of Optiray, CT angiogram of the head and neck wa s performed from the aortic arch to the apex. Images are reviewed in the axial, sagittal, and coronal planes. 3-D MIPS images are created and assessed. IV contrast was administered without complication. All measurements were obtained according to NASCET criteria. A dose lowering technique was utilized adhering to the principles of ALARA. CT DOSE: 465.05 mGy.cm FINDINGS: Acute appearing right cerebral infarct redemonstrated. Layering left pleural effusion. No pneumothora x. Unremarkable appearance of the soft tissues of the neck. Degenerative changes of the cervical spin e. CT ANGIOGRAM OF THE HEAD AND NECK: Three-vessel morphology of the thoracic arch. Patency of the innominate and imaged subclavian arterie s. Common carotid arteries are patent. Moderate atherosclerosis of the carotid bulbs without high-gra de stenosis. Internal carotid arteries are patent. The bilateral anterior and middle cerebral arteries are also patent. The vertebrobasilar system and p osterior cerebral arteries are widely patent. There is no aneurysm, high-grade stenosis, or proximal branch occlusion identified. Dural sinuses appear patent. IMPRESSION: 1. Acute right cerebral infarct is better evaluated on the same day head CT. 2. Unremarkable CTA of the head and neck. ACT 112: Negative or not required by law. The above report was generated using voice recognition software. It may contain grammatical, syntax o r spelling errors. Electronically signed by: Uday Becerra M.D. 10/09/2023 4:19 PM
--- NOTE | 2023-10-09 17:17 | History & Physical Report ---
Date of Service October 09, 2023 Assessment & Plan (1) Acute CVA (cerebrovascular accident): Plan: -Admit to the PCU on tele and pulse oximetry -Currently stable -Presented to the ED this afternoon after he was found by his neighbor in his recliner, too weak to get out of bed and confused -Was found to have a Large acute right temporoparietal infarct on CT of the head/brain, CTA of the head/neck were negative for acute findings other than the new CVA -ED spoke with Graham Benedictstroke who remotely evaluated the patient: >Was not a TNK candidate due to time of last known well being last evening >Recommended obtaining MRI of the brain wo con >Recommended holding patient's Eliquis tonight due to the size of the CVA and risk of hemorrhagic conversion on anticoagulation >Recommended keeping systolic BP < 180 mmhg -Patient's acute CVA is likely due to his newly diagnosed afib and not taking his Eliquis for multiple days -Start the following: >Dysphagia screen >q4h neuro checks >Fall/aspiration/seizure precautions >MRI brain wo con is in process >PRN IV Labetalol for systolic BP > 180mmhg or diastolic BP >110 mmhg >PT/OT consults >AM Hgb A1c/fasting lipid panel >Will repeat TTE tomorrow -Discussed risk that his large CVA could hemorrhagically convert leading to a intracranial hemorrhage >Patient expressed understanding and clearly explained that if this were to happen he would NOT to be transferred to a Tertiary Care center for intervention >In the event if he were to have hemorrhagic conversion he would want to be converted to comfort measures -Will continue patient's Crestor if he passes dysphagia screen -Neurology consult placed -Patient passed dysphagia screen >HH/DMII diet with easy to chew texture -BL SCD's for DVT PPX on admission -AM CBC, CMP, mag, PT/INR, A1c, fasting lipid panel (2) Generalized weakness: Plan: -Likely multifactorial including new, large CVA, CKD, deconditioning from recent admission, and UTI -Continue precautions as per Acute CVA plan -PT/OT consults -Will treat any infectious or metabolic abnormalities moving forward -Will likely need rehab and/or placement on DC (3) Acute confusion: Plan: -Resolved -Patient is currently back to his neurologic baseline per his friend who is bedside -Confusion likely a combination of acute CVA, CKD, and intravascular depletion -Continue neuro checks, repeat CT head/brain wo con for concerns of new or recurrent confusion (4) Leucocytosis: Plan: -Noted to have a leukocytosis of 11 today -Lactate and procal are WNL -He has been afebrile since arrival -Likely reactive due to being unable to get out of his chair with ongoing attempts overnight -His UTI diagnosed last admission was likely due to colonization, was treated with cefepime/zosyn while inpatient and discharged on Bactrim/Cipro -S/P one dose of Ceftriaxone in the ED -Blood cultures and urine culture were obtained -Will hold additional abx overnight and monitor fever curve -If clinical suspicion for infection increases could consult ID (5) Chronic kidney disease, stage 4 (severe): Plan: -Cr of 2.67 today, baseline is near 2.0 -Was initially diagnosed with UTI on last admission and was evaluated by Nephrology >Cr was as high as 3.35 >Cause was thought to be poor renal perfusion with his pericardial effusion with tamponade physiology and cystitis -Avoid Nephrotoxic agents -Monitor intake/output QSE -If any concerns could consult Nephrology (6) High anion gap metabolic acidosis: Plan: -AG elevated at 12 with bicarb of 18 -Lactate ordered in the ED was WNL -Unsure of etiology at this time, may be a combination of worsening renal function, poor perfusion from CHF, and ongoing UTI -Will obtain alcohol level and salicylate level now -Will obtain VBG -S/P one dose of Ceftriaxone in the ED -Will hold additional abx and hold IV fluids at this time as he has been afebrile, hemodynamically stable, and has signs of mild congestive failure on CXR today -Can use small IV boluses of fluid overnight if his BP were to fall (7) Atrial fibrillation: Plan: -Newly diagnosed as of last admission -Still in afib at this time, currently rate controlled -Holding Eliquis for now with new CVA >Would defer to Neurology tomorrow to determine when to restart -Continue to monitor on tele (8) Heart failure with reduced ejection fraction: Plan: -Appears euvolemic to slightly hypervolemic on exam -His mucus membranes are dry, but he also had not had anything to drink since ED arrival -CXR today shows signs of pulmonary vascular congestion and small BL pleural effusions -Passed his dysphagia screen, will allow him to eat/drink with aspiration precautions (9) Elevated troponin: Plan: -Initial high sen trop elevated at 29, 2 hour repeat is in process -Patient denies chest pain -Does have t-wave inversions in the anterolateral leads -Likely due to demand from recent admission for pericardial effusions, S/P pericardiocenteses last admission, and HFrEF -Will follow repeat high sen trop and continue to trend if needed Plan The patient was discussed with Dr. Holman at the time of the admission History of Present Illness Chief Complaint: Weakness and confusion Primary Care Provider: Bisi Marsh is a 83 year old male with a PMH significant for New onset HFrEF (LVEF of 45-50% as of 10/02/23), new onset atrial fibrillation (On eliquis), DMII, hx of rectal cancer S/P colostomy and chronic indwelling suprapubic catheter placement, and HTN who presented to the [facility] ED on 10/09/23 via EMS after a neighbor found him in his living room recliner this afternoon after not hearing form him. Per family the last known well was approximately 1900 on 10/07 when his son spoke to him on the phone. The patient was noted to be hypertensive on arrival at 170/96 and tachycardic at 92 but otherwise stable. Labs were significant for a leukocytosis of 11 with neutrophile predominance of 10, Cr of 2.67 (Still recovering from last admission but baseline is near 2.0), anion gap of 12 with bicarb of 18, initial high sen trop of 29, BUN of 1073 (no previous available), UA with cloudy urine, 3+ protein, 1+ LE, >50 WBC, but negative for bacteria, and full respiratory biofire negative. Chest xray was read as "1. Cardiomegaly with pulmonary vascular congestion. 2. Small pleural effusions with mild bibasilar consolidation.". CT of the head/brain wo con was read as "1. Large acute right temporoparietal infarct. 2. No acute intracranial hemorrhage or midline shift.". CTA of the head/neck were read as "1. Acute right cerebral infarct is better evaluated on the same day head CT. 2. Unremarkable CTA of the head and neck.". Per the ED staff, they spoke with Dr. Kidd at [facility] regarding the new CT head findings. Dr. Kidd evaluated the patient remotely and recommended obtaining MRI of the brain and holding patient's Eliquis tonight due to the size of CVA. Recommended keep the patient's systolic blood pressure under 180 mmhg. Prior to admission the patient was given a dose of ceftriaxone. Patient was admitted from 09/27/23-10/05/23 after being found to be in new onset CHF and Afib on evaluation in the ED for a fall at home 10 days prior, see discharge summary from 10/07/23 for complete details. Trauma workup at that time was negative for acute findings. He underwent pericardiocentesis on 09/29/[address] Telles. He was unable to be on anticoagulation from 09/28-10/04 as he had to undergo pericardiocentesis and was a fall risk. Once stable he was initiated on low dose Eliquis on 10/04 (low dose due to renal function). He was diagnosed with Klebsiella/Pseudomonas UTI and was initially treated with Cefepime and Zosyn but discharged on a 4 day course of Bactrim and ciprofloxacin. He was offered inpatient rehab prior to discharge but wanted to be discharge home instead. At the time of the exam the patient was lying in bed in no acute distress with a friend bedside, history was obtained from both as the patient gave consent for his friend to stay during my exam. The patient's friend said that she came to his house this afternoon to check on him. When she entered the house she found the home in disarray with the fridge door open, items scattered on the floor, and the patient sitting in his recliner. The patient states that he does not remember the events leading to the mess. He remembers wanting to get out of his recliner this am to take his medications but was too weak. When asked, he states that he does not remember when he last took a dose of Eliquis, it could have been the evening of 10/04. When asked, he states that right UE feels weaker than his left but he does not believe that he has any other focal defects. He denies recent changes in vision, hearing, taste, smell, paresthesias, chest pain, cough, SOB, abd pain, nausea, vomiting, increased ostomy output. The patient is a DNR/DNI and his son would be his medical decision maker if he cannot make decisions himself. I discussed the risk of hemorrhagic conversion as his acute CVA is large. >Patient expressed understanding and clearly explained that if this were to happen he would NOT want to be transferred to a Tertiary Care center for intervention >In the event if he were to have hemorrhagic conversion he would want to be transitioned to comfort measures Please refer to Dr. Holman's attestation for any changes to the treatment plan Allergies Allergy/AdvReac Type Severity Reaction Status Date / Time atorvastatin [From Lipitor] Allergy Unknown Verified 10/09/23 15:22 Home Medications Medication Instructions Recorded Confirmed Type ferrous sulfate 325 mg (65 mg 325 mg PO QAM 02/24/18 10/09/23 History iron) tablet rosuvastatin 10 mg tablet 10 mg PO HS 02/24/18 10/09/23 History cyanocobalamin (vitamin B-12) 1,000 mcg PO DAILY 12/19/19 10/09/23 History 1,000 mcg tablet (Vitamin B-12) cholecalciferol (vitamin D3) 25 2,000 unit PO DAILY #180 tabs 04/25/20 10/09/23 Rx mcg (1,000 unit) tablet (Vitamin D3) amlodipine 2.5 mg tablet 2.5 mg PO DAILY #90 tabs 09/25/21 10/09/23 Rx trospium 60 mg capsule,extended 60 mg PO DAILYBB 04/18/23 10/09/23 History release 24 hr insulin glargine 100 unit/mL (3 20 unit subcut PM 09/27/23 10/09/23 History mL) subcutaneous pen (Basaglar KwikPen U-100 Insulin) sitagliptin phosphate 50 mg tablet 50 mg PO DAILY 09/27/23 10/09/23 History (Januvia) apixaban 2.5 mg tablet (Eliquis) 2.5 mg PO BID #30 tabs 10/05/23 10/09/23 Rx ciprofloxacin HCl 500 mg tablet 500 mg PO DAILY #4 tabs 10/05/23 10/09/23 Rx (Cipro) sulfamethoxazole 400 1 tab PO BID #8 tabs 10/05/23 10/09/23 Rx mg-trimethoprim 80 mg tablet (Bactrim) Past Med/Surg History Problem List Elevated troponin High anion gap metabolic acidosis Heart failure with reduced ejection fraction Atrial fibrillation Acute CVA (cerebrovascular accident) (Acute) Leucocytosis (Acute) Non-ST elevation TX (NSTEMI) (Acute) Acute confusion (Acute) Generalized weakness (Acute) Chronic kidney disease, stage 4 (severe) Pericardial effusion Cardiomegaly (Acute) Edema of right lower extremity (Acute) Rib pain (Acute) New onset of congestive heart failure New onset atrial fibrillation (Acute) Fall (Acute) Food impaction of esophagus Esophageal abnormality (Acute) Acute UTI (urinary tract infection) (Acute) Vomiting (Acute) Acute kidney injury Skin lesion History of urinary retention Suprapubic catheter Benign prostatic hyperplasia with urinary obstruction and other lower urinary tract symptoms (Acute) DM (diabetes mellitus), type 2 (Acute) Hyperlipidemia (Acute) Hypertension (Acute) Urinary retention (Acute) Anemia Vitamin D deficiency Diabetes Diarrhea Obstructive uropathy (Chronic) Pre-syncope Rectal cancer (Chronic 06/17/17) "Rectal bleeding Status post colonoscopy and biopsy 06/17/2017 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 Plan for combined radiation and chemotherapy followed by possible resection Status post completion of combined radiation and chemotherapy August 30, 2017." On 07/07/17 13:09 Felicia Hannon wrote "Rectal bleeding Status post colonoscopy and biopsy 06/17/2017 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 Plan for combined radiation and chemotherapy followed by possible resection" Medical History Jewell UTI 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 Chronic kidney disease, stage III (moderate) Family History Other Family history non-contributory Social History Smoking Status: Never smoker Do You Dip or Chew Tobacco: No; Hx Alcohol Use: No Hx Substance Use: No Preferred Language: Nigerien Communication Ability: Effective Visual Impairment: No Limitations 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: Normal [employer] Furn[employer] Manager Required: No Beliefs That Will Affect Care: None marital status: / Current Living Situation: Alone Current Living Situation Comment: home current occupational status: retired Feels Safe at Home: Yes Safety Concerns: Feels Safe At This Time Assistive Devices: Walker and Other Assistive Devices Comment: ostomy, suprapubic catheter Physical Exam Physical Exam: Physical Exam: General: In no acute distress, stated age, chronically ill appearing but non- toxic HEENT: Normocephalic, atraumatic, no scleral icterus, pupils around round, symmetrical, and reactive to light, dry mucus membranes, trachea midline, no thyromegaly Chest/Pulm: No respiratory distress, symmetrical chest expansion, crackles noted in the BL lower lung ornelas, otherwise CTA Cardiac: irregular rate and rhythm, no murmurs noted Abdomen: Negative for ascites and bruising, colostomy bag located in the RLQ is intact and without signs of leaking, normoactive bowel sounds, soft, non- tender to palpation throughout : Supra pubic catheter is in place and is without signs of infection or purulent drainage from the insertion site, currently draining clear, yellow urine Musculoskeletal: Symmetrical and without signs of acute trauma, patient with decreased strength in the RUE compared to left with spasticity with active use, symmetrical strength in the BL Lower extremities Extremities: Radial, dorsalis pedis, and posterior tibial pulses are intact and symmetrical, no edema noted in the BL LE's Skin: Warm, dry, no rashes , lesions, or scars noted Neuro: Alert and oriented to person, place, month, year, and president, CN II-XII tested and intact, patient with positive pronator drift and cerebellar testing in the RUE, no tremors noted Psych: No acute distress, calm and cooperative during the exam Results & Data Results & Data Vital Signs (Past 12 Hours) Vital Signs Temp Pulse Resp BP Pulse Ox O2 Del Method O2 Flow Rate 10/09/23 15:49 150/87 H 10/09/23 15:49 68 22 10/09/23 15:30 170/96 H 10/09/23 15:30 71 16 98 Room Air 10/09/23 15:19 168/82 H 10/09/23 15:19 74 16 95 Room Air 10/09/23 15:18 79 14 91 10/09/23 15:01 73 22 98 10/09/23 15:01 155/82 H 10/09/23 15:00 71 23 155/82 H 95 Room Air 10/09/23 14:45 79 20 10/09/23 14:30 161/101 H 10/09/23 14:30 72 15 10/09/23 14:25 92 H 10/09/23 14:24 162/91 H 10/09/23 14:24 72 15 98 Room Air 10/09/23 14:20 99 Room Air 10/09/23 14:15 80 21 90 10/09/23 14:00 86 21 99 10/09/23 13:51 141/92 H 10/09/23 13:51 90 11 L 10/09/23 13:37 96 Room Air 0 10/09/23 13:37 36.5 C 80 36 H 141/92 H 96 Room Air Laboratory Results Abnormal lab results 10/09/23 10/09/23 10/09/23 Range/Units 13:56 14:00 14:33 WBC 11.00 H (4.8-10.8) K/ul RBC 4.34 L (4.70-6.10) M/uL Hgb 11.7 L (14.0-18.0) g/dl Hct 37.6 L (42.0-52.0) % MCHC 31.1 L (32.0-36.0) g/dL RDW Std Deviation 50.1 H (36.4-46.3) fL RDW Coeff of Timoteo 15.9 H (11.5-14.5) % MPV 9.3 L (9.4-12.4) fL Neut # (Auto) 10.28 H (1.40-6.50) K/uL Lymph # (Auto) 0.28 L (1.20-3.40) K/uL Chloride 110 H (98-107) mmol/L Carbon Dioxide 18 L (21-32) mmol/L Anion Gap 12 H (3-11) BUN 44 H (6-23) mg/dl Creatinine 2.67 H (0.6-1.4) mg/dl Glucose 161 H (70-99(Fasting)) mg/dl POC Glucose 158 H (70-99) mg/dl Alkaline Phosphatase 150 H (34-104) U/L Troponin I High Sens 29.4 H (0-20) pg/ml B-Natriuretic Peptide (0-100) pg/ml Urine Appearance Cloudy A (Clear) Urine Protein 3+ H (Negative) Urine Blood 3+ H (Negative) Ur Leukocyte Esterase 1+ H (Negative) Urine WBC (Auto) >50 H (0-5) /hpf Urine RBC (Auto) 11-20 H (0-2) /hpf U Hyaline Cast (Auto) >20 H (0-2) /lpf Urine Yeast Present A (None Prsent) 10/09/23 Range/Units 14:58 WBC (4.8-10.8) K/ul RBC (4.70-6.10) M/uL Hgb (14.0-18.0) g/dl Hct (42.0-52.0) % MCHC (32.0-36.0) g/dL RDW Std Deviation (36.4-46.3) fL RDW Coeff of Timoteo (11.5-14.5) % MPV (9.4-12.4) fL Neut # (Auto) (1.40-6.50) K/uL Lymph # (Auto) (1.20-3.40) K/uL Chloride (98-107) mmol/L Carbon Dioxide (21-32) mmol/L Anion Gap (3-11) BUN (6-23) mg/dl Creatinine (0.6-1.4) mg/dl Glucose (70-99(Fasting)) mg/dl POC Glucose (70-99) mg/dl Alkaline Phosphatase (34-104) U/L Troponin I High Sens (0-20) pg/ml B-Natriuretic Peptide 1073 H (0-100) pg/ml Urine Appearance (Clear) Urine Protein (Negative) Urine Blood (Negative) Ur Leukocyte Esterase (Negative) Urine WBC (Auto) (0-5) /hpf Urine RBC (Auto) (0-2) /hpf U Hyaline Cast (Auto) (0-2) /lpf Urine Yeast (None Prsent) Diagnostic Findings Head CT 10/09/23 14:19 CT head/brain wo con CLINICAL HISTORY: 83 years-old Male with altered mental status. TECHNIQUE: Multiple axial CT images of the head were obtained without contrast. A dose lowering technique was utilized adhering to the principles of ALARA. CT DOSE: 625.8 mGy.cm COMPARISON: None. FINDINGS: There is a large acute territorial infarct within the right temporal parietal lobe with cytotoxic edema resulting in blurring of the sosa-white interface. This measures up to approximately 6 cm on image 24 series 2 and may be larger on image 19 series 2. There is no acute intracranial hemorrhage, midline shift, intracranial mass, hydrocephalus, or abnormal extra-axial collection. Involutional changes with chronic microvascular ischemic disease. The calvarium is intact. The paranasal sinuses, mastoid air cells, and middle ear cavities are clear. IMPRESSION: 1. Large acute right temporoparietal infarct. 2. No acute intracranial hemorrhage or midline shift. ACT 112: Negative or not required by law. The above report was generated using voice recognition software. It may contain grammatical, syntax or spelling errors. Electronically signed by: Uday Becerra M.D. 10/09/2023 3:29 PM Chest X-Ray 10/09/23 14:20 XR chest 1V portable HISTORY: 83 years-old Male Sepsis COMPARISON: 09/27/2023 TECHNIQUE: AP view of the chest FINDINGS: Cardiac silhouette is enlarged. Pulmonary vascular congestion. Small pleural effusions with mild bibasilar consolidation. Bones appear grossly intact. 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 IMPRESSION: 1. Cardiomegaly with pulmonary vascular congestion. 2. Small pleural effusions with mild bibasilar consolidation. ACT 112: Negative or not required by law. The above report was generated using voice recognition software. It may contain grammatical, syntax or spelling errors. Electronically signed by: Uday Becerra M.D. 10/09/2023 2:46 PM Head CTA 10/09/23 15:30 CT angio head w con, CT angio neck with con CLINICAL HISTORY: 83 years-old Male with CVA; confusion. Acutely altered mental status with strokelike symptoms COMPARISON STUDY: Head CT of same day TECHNIQUE: Following the IV administration of 118 cc of Optiray, CT angiogram of the head and neck was performed from the aortic arch to the apex. Images are reviewed in the axial, sagittal, and coronal planes. 3-D MIPS images are created and assessed. IV contrast was administered without complication. All measurements were obtained according to NASCET criteria. A dose lowering technique was utilized adhering to the principles of ALARA. CT DOSE: 465.05 mGy.cm FINDINGS: Acute appearing right cerebral infarct redemonstrated. Layering left pleural effusion. No pneumothorax. Unremarkable appearance of the soft tissues of the neck. Degenerative changes of the cervical spine. CT ANGIOGRAM OF THE HEAD AND NECK: Three-vessel morphology of the thoracic arch. Patency of the innominate and imaged subclavian arteries. Common carotid arteries are patent. Moderate atherosclerosis of the carotid bulbs without high-grade stenosis. Internal carotid arteries are patent. The bilateral anterior and middle cerebral arteries are also patent. The vertebrobasilar system and posterior cerebral arteries are widely patent. There is no aneurysm, high-grade stenosis, or proximal branch occlusion identified. Dural sinuses appear patent. IMPRESSION: 1. Acute right cerebral infarct is better evaluated on the same day head CT. 2. Unremarkable CTA of the head and neck. ACT 112: Negative or not required by law. The above report was generated using voice recognition software. It may contain grammatical, syntax or spelling errors. Electronically signed by: Uday Becerra M.D. 10/09/2023 4:19 PM Neck CTA 10/09/23 15:30 CT angio head w con, CT angio neck with con CLINICAL HISTORY: 83 years-old Male with CVA; confusion. Acutely altered mental status with strokelike symptoms COMPARISON STUDY: Head CT of same day TECHNIQUE: Following the IV administration of 118 cc of Optiray, CT angiogram of the head and neck was performed from the aortic arch to the apex. Images are reviewed in the axial, sagittal, and coronal planes. 3-D MIPS images are created and assessed. IV contrast was administered without complication. All measurements were obtained according to NASCET criteria. A dose lowering technique was utilized adhering to the principles of ALARA. CT DOSE: 465.05 mGy.cm FINDINGS: Acute appearing right cerebral infarct redemonstrated. Layering left pleural effusion. No pneumothorax. Unremarkable appearance of the soft tissues of the neck. Degenerative changes of the cervical spine. CT ANGIOGRAM OF THE HEAD AND NECK: Three-vessel morphology of the thoracic arch. Patency of the innominate and imaged subclavian arteries. Common carotid arteries are patent. Moderate atherosclerosis of the carotid bulbs without high-grade stenosis. Internal carotid arteries are patent. The bilateral anterior and middle cerebral arteries are also patent. The vertebrobasilar system and posterior cerebral arteries are widely patent. There is no aneurysm, high-grade stenosis, or proximal branch occlusion identified. Dural sinuses appear patent. IMPRESSION: 1. Acute right cerebral infarct is better evaluated on the same day head CT. 2. Unremarkable CTA of the head and neck. ACT 112: Negative or not required by law. The above report was generated using voice recognition software. It may contain grammatical, syntax or spelling errors. Electronically signed by: Uday Becerra M.D. 10/09/2023 4:19 PM ECG Additional Comments: Atrial fibrillation with premature ventricular or aberrantly conducted complexes T wave abnormality, consider anterolateral ischemia Prolonged QT Abnormal ECG When compared with ECG of 27-SEP-2023 16:57, Nonspecific T wave abnormality now evident in Inferior leads T wave inversion now evident in Anterior leads QT has lengthened Code Status & VTE Plan Code Status DNR/DNI VTE Prophylaxis Plan VTE Prophylaxis will be ordered: Yes Supervising Physician Co-Signing Physician Notes I personally saw and examined the patient. I verified all villalobos points and agree with Alli Pierre PA-C with the following exceptions and/or additions: 83 year old left handed male presents to the ER with sudden inability to move himself this morning with bilateral generalized weakness and confusion. He reports feeling his normal self the previous night when he went to bed around 7pm. He denies any acute vision. Recent hospitalization reviewed as above. O/E HS irregular rhythm, regular rate, no murmurs, Chest CTAB, Abdo SNT, 1+ pedal edema b/l equal. CN2-> 12 intact, pronator drift b/l L > R, no lower extremity weakness, no sensation deficit in all 4 extremities A/P Acute CVA - presumably a. fib related, unclear if he was taking Eliquis on discharge but only recently started last admission and even needed to be held for some time given need for paracentesis. Angiograms unremarkable therefore antiplatelets not given. Will defer to neurology when to resume Eliquis but should be held currently. Labetalol for sBP > 180. TTE. Consult neurology. PT/OT/speech. Surprisingly little symptoms for large stroke area. PG Care Time/CCT Total # of Minutes Spent Total Time Spent with Patient: Total time spent is greater than 50% in coordination of care (as documented) at patient's floor/unit and/or counseling patient: Coding [place] [address] INT INP/OBS CARE 3/75MIN Patient Type Established Medical Decision Making High Complexity Diagnoses Acute CVA (cerebrovascular accident) I63.9 Generalized weakness R53.1 Acute confusion R41.0 Leucocytosis D72.829 Chronic kidney disease, stage 4 (severe) N18.4 High anion gap metabolic acidosis E87.29 Atrial fibrillation I48.91 Heart failure with reduced ejection fraction I50.20 Elevated troponin R79.89
[2023-10-09] MEDS ORDERED: PHARMACIST DISCHARGE MED REC CONSULT PRN (17:19)
--- NOTE | 2023-10-09 17:49 | Magnetic Resonance Report ---
MR brain wo con HISTORY: 83 years-old Male CVA; weakness acute strokelike symptoms with weakness COMPARISON: Head CT of same day TECHNIQUE: Multiplanar multisequence MRI of the brain was obtained without IV contrast. FINDINGS: Numerous areas of restricted diffusion noted throughout the right MCA territory. Within the right fro ntal lobe on image 19 series 4 this measures 3.2 cm. The right temporal parietal lobe this measures u p to approximately 6 cm. Decreased signal on ADC map with increased T2/FLAIR signal. No left-sided re stricted diffusion. Motion degraded exam. Unremarkable midline structures. No acute intracranial hemo rrhage, midline shift, hydrocephalus or intra-axial mass. Involutional changes with moderate chronic microvascular ischemic disease. Cerebral venous sinuses and major arterial flow voids are patent. Skull, orbits and soft tissues are unremarkable. Prior bilateral lens repair. IMPRESSION: 1. Acute infarcts within the right MCA territory measure up to 6 cm within the right temporal parieta l distribution. 2. Cytotoxic edema is noted without acute intracranial hemorrhage or midline shift. 3. Involutional changes with chronic microvascular ischemic disease. ACT 112: Negative or not required by law. The above report was generated using voice recognition software. It may contain grammatical, syntax o r spelling errors. Electronically signed by: Uday Becerra M.D. 10/09/2023 5:47 PM
[2023-10-09] MEDS ORDERED: LABETALOL HCL IV 5 MG/ML 20ML IV PRN (18:19)
[2023-10-09] MEDS ORDERED: GLUCOSE 10 TAB/TUBE PO PRN (18:22)
[2023-10-09] MEDS ORDERED: GLUCOSE 40% GEL 15 GM TUBE PO PRN (18:22)
[2023-10-09] MEDS ORDERED: CARBOHYDRATES FOR HYPOGLYCEMIA PO PRN (18:22)
[2023-10-09] MEDS ORDERED: GLUCAGON FOR INJ 1 MG VIAL SQ PRN (18:22)
[2023-10-09] MEDS ORDERED: DEXTROSE 50% 50 ML SYRINGE IV PRN (18:22)
[2023-10-09 18:41] LABS: pH VBG 7.37 (7.36-7.41)
[2023-10-09 19:16] LABS: HCO3 VBG 21 mmol/L; PCO2 VBG 38 mmHg (38-50); PO2 VBG 25 mmHg
[2023-10-09 19:17] LABS: Base Excess VBG -4.2 mEq/L; Oxygen Saturation VBG < 60.0 %
[2023-10-09] MEDS ORDERED: PHARMACY GLYCEMIC MGMT CONSULT PRN (20:10)
[2023-10-09] MEDS: INSULIN ASPART PER UNIT CHARGE SC SCH (20:16)
[2023-10-09] MEDS: ACETAMINOPHEN 500 MG TAB PO STA (20:16)
[2023-10-09] MEDS: ROSUVASTATIN CALCIUM 10 MG TAB PO SCH (20:16)
[2023-10-09] MEDS: LANTUS PER UNIT CHARGE SC ONE (20:54)
[2023-10-09] MEDS ORDERED: LANTUS PER UNIT CHARGE SQ SCH (21:00)
[2023-10-10] MEDS: INSULIN ASPART PER UNIT CHARGE SC SCH (04:59)
[2023-10-10 07:05] LABS: Basophils # (auto) 0.03 K/uL (0.00-0.20); Basophils % (auto) 0.3 %; Eosinophils # (auto) 0.14 K/uL (0.00-0.50); Eosinophils % (auto) 1.6 %; Hematocrit (blood only) 34.4 % (42.0-52.0); Hemoglobin 10.8 g/dl (14.0-18.0); Immature Granulocytes # (auto) 0.07 K/uL (0.01-0.20); Immature Granulocytes % (auto) 0.8 %; Lymphocytes # (auto) 0.55 K/uL (1.20-3.40); Lymphocytes % (auto) 6.2 %; Mean Corpuscular Hemoglobin 27.1 pg (25.0-34.0); Mean Corpuscular Hgb Conc 31.4 g/dL (32.0-36.0); Mean Corpuscular Volume 86.4 fL (80.0-100.0); Mean Platelet Volume 9.5 fL (9.4-12.4); Monocytes # (auto) 0.58 K/uL (0.11-0.59); Monocytes % (auto) 6.6 %; Neutrophils # (auto) 7.44 K/uL (1.40-6.50); Neutrophils % (auto) 84.5 %; Platelet Count 352 K/uL (130-400); RDW Coefficient of Variation 16.2 % (11.5-14.5); RDW Standard Deviation 51.3 fL (36.4-46.3); Red Blood Count 3.98 M/uL (4.70-6.10); White Blood Count 8.81 K/ul (4.8-10.8)
[2023-10-10 07:20] LABS: Estimated Average Glucose 169 mg/dl; Hemoglobin A1C 7.5 % (4.5-5.6)
[2023-10-10 07:29] LABS: INR 1.2 (0.9-1.1); Prothrombin Time 12.4 Seconds (9.0-12.0)
[2023-10-10 07:30] LABS: Albumin Globulin Ratio 1.1 (0.9-2); Albumin Level 3.4 gm/dl (3.4-5.0); BUN Creatinine Ratio 15.6 (10-20); Bilirubin,Total 0.4 mg/dl (0.2-1.0); Calcium 9.2 mg/dl (8.6-10.3); Chol HDL Ratio 3.4 (0-5); Creatinine Clr Calc Pharmacy 21.4 ml/min; Est GFR (African American) 25.1 ml/min; Est GFR (Non-African American) 21.6 ml/min; Globulin 3.2 gm/dl (2.5-4.0); Magnesium 2.1 mg/dl (1.7-2.4); Total Protein 6.6 gm/dl (6.0-8.3)
[2023-10-10] MEDS: OXYBUTYNIN CHLORIDE XL 5 MG TABCR PO SCH (08:45)
--- NOTE | 2023-10-10 08:55 | Neurology Consultation ---
Date of Consultation October 10, 2023 Assessment & Plan (1) Acute CVA (cerebrovascular accident): (2) Atrial fibrillation: Plan Acute right MCA, right temporoparietal infarcts with associated cytotoxic edema, no hemorrhage or shift, occurring in the context of recently diagnosed atrial fibrillation, noncompliance with Eliquis. This patient does have some visual neglect to the left hemifield as well as mild sensory neglect for the left side of the body, extinguishes to double simultaneous stimulation. He does not have obvious motor or speech deficits. No abnormalities on CTA of the head and neck. He does have a history of insulin-dependent diabetes mellitus with improving control, recent hemoglobin A1c 7.5, had been over 11 last year. Given the size of this patient's acute infarct I would recommend holding his Eliquis for 1 week given risk of hemorrhagic conversion. (For medically stable patients with atrial fibrillation and smaller moderate size infarcts with no intracranial bleeding, anticoagulation can often be started after 24 hours with minimal risk of transformation to hemorrhagic stroke. Some specialists recommend waiting 48 hours prior to starting a direct oral anticoagulant due to more rapid anticoagulant effect. This patient's stroke is medium to large size which is why I would recommend waiting 1 week before resuming his Eliquis.) Would check a repeat noncontrast CT of the head this afternoon to reassess for interval bleeding. Would consider obtaining another follow-up noncontrast CT of the head in 2 days. Continue medical management of hypertension, allow for systolic blood pressure 140 to 160 mmHg. May continue with rosuvastatin. Consultations with PT/OT as ordered. Please call with any questions. History of Present Illness Reason for Consultation: CVA Requesting Physician: Gabby Attending Physician: Maximo Weller History of Present Illness 83-year-old left-handed male who was recently discharged from the [facility] last week with a diagnosis of new onset atrial fibrillation. He was found by a neighbor yesterday afternoon sitting in his recliner. His house was in a degree of disarray, items scattered on the floor, refrigerator door open. The patient indicates that he was feeling weak, unable to stand and walk. He denies headache, dizziness, change in vision, or obvious focal abnormalities of motor function. He had been noncompliant with Eliquis. He did have a telestroke consultation although TNK was not administered given unknown onset of symptoms. A CT of the head revealed a large acute right temporoparietal infarct, no hemorrhage. A CTA of the head and neck were unremarkable. A brain MRI revealed acute infarcts within the right MCA territory up to 6 cm in size within the right temporoparietal distribution, associated cytotoxic edema, no hemorrhage or shift. I did independently review these images. Allergies Allergy/AdvReac Type Severity Reaction Status Date / Time atorvastatin [From Lipitor] Allergy Unknown Verified 10/09/23 15:22 Home Medications Medication Instructions Recorded Confirmed Type ferrous sulfate 325 mg (65 mg 325 mg PO QAM 02/24/18 10/09/23 History iron) tablet rosuvastatin 10 mg tablet 10 mg PO HS 02/24/18 10/09/23 History cyanocobalamin (vitamin B-12) 1,000 mcg PO DAILY 12/19/19 10/09/23 History 1,000 mcg tablet (Vitamin B-12) cholecalciferol (vitamin D3) 25 2,000 unit PO DAILY #180 tabs 04/25/20 10/09/23 Rx mcg (1,000 unit) tablet (Vitamin D3) amlodipine 2.5 mg tablet 2.5 mg PO DAILY #90 tabs 09/25/21 10/09/23 Rx trospium 60 mg capsule,extended 60 mg PO DAILYBB 04/18/23 10/09/23 History release 24 hr insulin glargine 100 unit/mL (3 20 unit subcut PM 09/27/23 10/09/23 History mL) subcutaneous pen (Basaglar KwikPen U-100 Insulin) sitagliptin phosphate 50 mg tablet 50 mg PO DAILY 09/27/23 10/09/23 History (Januvia) apixaban 2.5 mg tablet (Eliquis) 2.5 mg PO BID #30 tabs 10/05/23 10/09/23 Rx ciprofloxacin HCl 500 mg tablet 500 mg PO DAILY #4 tabs 10/05/23 10/09/23 Rx (Cipro) sulfamethoxazole 400 1 tab PO BID #8 tabs 10/05/23 10/09/23 Rx mg-trimethoprim 80 mg tablet (Bactrim) Patient History Medical History Jewell UTI 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 Chronic kidney disease, stage III (moderate) Family History Other Family history non-contributory Social History Smoking Status: Never smoker Do You Dip or Chew Tobacco: No; Hx Alcohol Use: No Hx Substance Use: No Preferred Language: Nepalese Communication Ability: Effective Visual Impairment: No Limitations 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: Normal 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 Beliefs That Will Affect Care: None marital status: / Current Living Situation: Alone Current Living Situation Comment: home current occupational status: retired Feels Safe at Home: Yes Safety Concerns: Feels Safe At This Time Assistive Devices: Walker and Other Assistive Devices Comment: ostomy, suprapubic catheter Review of Systems Constitutional: no fever and no chills Eyes: no blind spots and no diplopia Ear, Nose, Mouth, Throat: no hearing loss Respiratory: no cough and no dyspnea Cardiovascular: no chest pain and no palpitations Gastrointestinal: no nausea and no vomiting Genitourinary: no dysuria Musculoskeletal: no neck pain and no myalgia Integumentary: + dry skin; no rash Neurologic: as per Subjective / HPI; no tremor(s), no seizure-like activity, no dizziness and no headache(s) Psychiatric: no depression and no anxiety Hematologic / Lymphatic: no easy bleeding and no easy bruising Exam (Neuro) Constitutional: well developed; no acute distress Eyes: PERRL and EOM intact bilaterally; + abnormal visual field confrontation (Patient exhibits some visual neglect to the left hemifield) and no nystagmus Neurologic: Oriented to:: Person, Place and Time Memory: Short Term Intact and Remote Intact Attention: Span Intact and Concentration Intact Speech Fluency: negative Dysarthria or Dysfluency Speech Aphasia: negative Aphasia Fund of Knowledge: Current Events, Past History and Vocabulary Cranial Nerves: Normal III, IV, , V, VII, VIII, IX, X, XI and XII; Abnorm II Motor Strength: Normal Lower Extremities and Normal Upper Extremities Motor Tone: Normal Lower Extremities and Normal Upper Extremities Muscle Bulk/Involuntary Movements: No Involuntary Movements; negative Muscle Atrophy Sensation: Light Touch Intact and Pain/Temperature Intact; negative Proprioception Intact Coordination: negative Dysdiadochokinesia, Finger-Nose Abnormal or Heel-Treviño Abnormal Deep Tendon Reflexes: Rt Triceps: 2+, Lt Triceps: 2+, Rt Biceps: 2+, Lt Biceps: 2+, Rt Brachioradialis: 2+, Lt Brachioradialis: 2+, Rt Patellar: 2+, Lt Patellar: 2+, Rt Ankle: 1+ and Lt Ankle: 1+ Special Tests: Babinski Present Details: Patient exhibits difficulty with the left visual hemifield, visual neglect. Patient also exhibits a degree of sensory neglect to the left side, extinguishes with double simultaneous stimulation on the left. Gait not tested. Results & Data Vital Signs (Past 12 Hours) Vital Signs Temp Pulse Resp BP Pulse Ox O2 Del Method 10/10/23 07:12 36.7 C 62 12 134/71 97 Room Air 10/10/23 03:24 36.6 C 78 18 156/93 H 96 Room Air 10/09/23 23:19 36.5 C 70 18 156/78 H 98 Room Air Laboratory Results WBC 8.81, hemoglobin 10.8, hematocrit 34.4, platelet count 352, sodium 143, potassium 5.0, BUN 41, creatinine 2.62, glucose 100, hemoglobin A1c 7.5, calcium 9.2, magnesium 2.1, AST 12, ALT 14, triglycerides 152, cholesterol 158, LDL 82, HDL [address] of the head, CTA of the head and neck, and brain MRI are as described in the history of present illness. I independently reviewed these images. An echocardiogram completed today revealed no change in the size/location of the previously seen small to moderate pericardial effusion compared with October 02, 2023. There is improvement in left ventricular systolic function compared with the previous study done September 28, 2023. There is borderline global hypokinesis of the left ventricle, no regional wall motion abnormalities. The left atrium is moderately dilated. Interatrial septum intact, no shunt with injection of contrast. An electrocardiogram reveals atrial fibrillation with premature ventricular or aberrantly conducted complexes. Coding Level of Care Code 70328 INT INP/OBS CARE 3/75MIN Diagnoses Acute CVA (cerebrovascular accident) I63.9 Atrial fibrillation I48.91 Time Spent (min) 80 Comment Total time includes patient contact, chart review, counseling, note preparation
--- NOTE | 2023-10-10 09:07 | Electrocardiogram Report ---
Test Reason : Blood Pressure : / mmHG Vent. Rate : 080 BPM Atrial Rate : 000 BPM P-R Int : 000 ms QRS Dur : 088 ms QT Int : 432 ms P-R-T Axes : 000 -14 079 degrees QTc Int : 498 ms Atrial fibrillation with premature ventricular or aberrantly conducted complexes T wave abnormality, consider anterolateral ischemia Prolonged QT Abnormal ECG When compared with ECG of 27-SEP-2023 16:57, T wave inversion now evident in Anterior leads QT has lengthened Confirmed by Sunil Juan ([id number]) on 10/10/2023 9:07:25 AM Referred By: REFERRED SELF Confirmed By:Sunil Juan
--- NOTE | 2023-10-10 09:27 | XCELERA ---
[id number]
--- NOTE | 2023-10-10 10:27 | Pharmacy Report ---
- Date of Service October 10, 2023 - Pharmacy CVA/TIA Medication Review Medications to Prevent Stroke handout has been added to the patients discharge packet. Antiplatelet(s) * Aspirin 81 mg PO daily Cholesterol * Crestor 10 mg PO HS * High intensity statin deferred due to age >75 DVT Prophylaxis * SCD knee Therapeutic Anticoagulation * Hx Afib/Aflutter noted, but home anticoagulation (Eliquis 2.5 mg PO BID) will be held for 1 week per neurology given large infarct and risk of hemorrhagic transformation Type 2 Diabetes * Patient has T2DM, but per Dr. Weller, a diabetes medication with proven CVD benefit will be deferred to their outpatient provider due to familiarity with risks/benefits of such therapies. "Medications to prevent stroke" handout has already been added to the patient's discharge packet, which instructs the patient to follow up with their outpatient provider to evaluate which diabetes medication with proven CVD benefit is best for them
--- NOTE | 2023-10-10 10:41 | Pharmacy Report ---
Pharmacy Glycemic Short Note 2 - Date of Service October 10, 2023 - Glycemic Short BSG Results (Last 24 hours): 10/09/23 10/09/23 10/09/23 13:56 14:00 19:56 Glucose 161 H POC Glucose 158 H 127 H 10/10/23 10/10/23 10/10/23 03:29 06:04 07:14 Glucose 100 H POC Glucose 97 95 OUTPATIENT ANTIDIABETIC REGIMEN: * Basaglar 20 units SC PM * Jardiance 50 mg PO daily * HbA1c: 7.5% (10/10/23) ASSESSMENT: * 83 yo M admitted on 10/09/23 secondary to an acute stroke. Pharmacy has been consulted to assist with inpatient glycemic management. Patient is a Type 2 diabetic as an outpatient. Please refer to outpatient regimen and most recent HbA1c above. * Patient was recently admitted this month and blood sugars were reasonably controlled on Lantus 5 units SC BID and Novolog SC ACHS with CF 45 and CR 15. * Patient is currently ordered a diet and has passed his swallow evaluation per RN. Likely will eat first meal at lunch today. * Received 5 units of Lantus last evening for a BSG of 127 mg/dL. Overnight check was 97 mg/dL. Fasting BSG was 95 mg/dL this AM. Novolog is ordered but has not been required as of yet. * Will continue with 5 units of Lantus this evening as BSGs should trend up once patient starts consuming carbs. Continue with previously ordered Novolog parameters. PLAN FOR INPATIENT GLYCEMIC CONTROL: * Hold outpatient oral diabetes medications * Basal insulin * Lantus 5 units SC HS * Bolus insulin * NovoLog per scale ACHS or Q6hrs while NPO * Goal Range: Low 110 mg/dL - High 140 mg/dL * Correction Factor: 40 mg/dL/unit * Nutritional / Prandial insulin per carb ratio of 1 unit per 12 grams CHO consumed
[2023-10-10] MEDS: ASPIRIN 81 MG ECTAB PO SCH (11:20)
[2023-10-10] MEDS: LANTUS PER UNIT CHARGE SC SCH (20:54)
--- NOTE | 2023-10-10 21:07 | CT Scan Report ---
Exam(s): CT HEAD Without Contrast EXAM: CT Head Without Intravenous Contrast CLINICAL HISTORY: Reason for exam: stroke/ check for interval bleeding. TECHNIQUE: Axial computed tomography images of the head/brain without intravenous contrast. CTDI is 37.39 mGy and DLP is 625.8 mGy-cm. Automated exposure control was utilized for the study. A dose lowering technique was utilized adhering to the principles of ALARA. COMPARISON: MRI brain on 10/09/2023. CT head on 10/09/2023. FINDINGS: Brain: Evolving subacute infarcts in the right frontal and parietal regions. Chronic small vessel ischemic disease. No acute intracranial hemorrhage identified. Ventricles: Mild prominence of the ventricles and sulci is likely secondary to cerebral volume loss. Bones/joints: Unremarkable. No acute fracture. Soft tissues: Unremarkable. Sinuses: Unremarkable as visualized. No acute sinusitis. Mastoid air cells: Unremarkable as visualized. No mastoid effusion. Orbits: Bilateral lens implants. IMPRESSION: 1. Evolving subacute infarcts in the right frontal and parietal regions. 2. No acute intracranial hemorrhage identified. Electronically signed by: Ching Perez M.D. 10/10/23 21:06 PM
--- NOTE | 2023-10-10 22:56 | Hospitalist Progress Note ---
Date of Service October 10, 2023 Assessment & Plan (1) Acute CVA (cerebrovascular accident): Plan: -Admit to the PCU on tele and pulse oximetry -Currently stable -Presented to the ED this afternoon after he was found by his neighbor in his recliner, too weak to get out of bed and confused -Was found to have a Large acute right temporoparietal infarct on CT of the head/brain, CTA of the head/neck were negative for acute findings other than the new CVA -ED spoke with Graham Telestroke who remotely evaluated the patient: >Was not a TNK candidate due to time of last known well being last evening >Recommended obtaining MRI of the brain wo con >Recommended holding patient's Eliquis tonight due to the size of the CVA and risk of hemorrhagic conversion on anticoagulation >Recommended keeping systolic BP < 180 mmhg -Patient's acute CVA is likely due to his newly diagnosed afib and not taking his Eliquis for multiple days -Start the following: >Dysphagia screen >q4h neuro checks >Fall/aspiration/seizure precautions >MRI brain wo con is in process >PRN IV Labetalol for systolic BP > 180mmhg or diastolic BP >110 mmhg >PT/OT consults >AM Hgb A1c/fasting lipid panel >Will repeat TTE tomorrow -Discussed risk that his large CVA could hemorrhagically convert leading to a intracranial hemorrhage >Patient expressed understanding and clearly explained that if this were to happen he would NOT to be transferred to a Tertiary Care center for intervention >In the event if he were to have hemorrhagic conversion he would want to be converted to comfort measures -Will continue patient's Crestor if he passes dysphagia screen -Neurology consult placed -Patient passed dysphagia screen >HH/DMII diet with easy to chew texture -BL SCD's for DVT PPX on admission -AM CBC, CMP, mag, PT/INR, A1c, fasting lipid panel On 10/[address] scan of the brain to asses for intracranial hemorrhagic conversion. (2) Generalized weakness: Plan: -Likely multifactorial including new, large CVA, CKD, deconditioning from recent admission, and UTI -Continue precautions as per Acute CVA plan -PT/OT consults -Will treat any infectious or metabolic abnormalities moving forward -Will likely need rehab and/or placement on DC (3) Acute confusion: Plan: -Resolved -Patient is currently back to his neurologic baseline per his friend who is bedside -Confusion likely a combination of acute CVA, CKD, and intravascular depletion -Continue neuro checks, repeat CT head/brain wo con for concerns of new or recurrent confusion (4) Leucocytosis: Plan: -Noted to have a leukocytosis of 11 today -Lactate and procal are WNL -He has been afebrile since arrival -Likely reactive due to being unable to get out of his chair with ongoing attempts overnight -His UTI diagnosed last admission was likely due to colonization, was treated with cefepime/zosyn while inpatient and discharged on Bactrim/Cipro -S/P one dose of Ceftriaxone in the ED -Blood cultures and urine culture were obtained -Will hold additional abx overnight and monitor fever curve -If clinical suspicion for infection increases could consult ID (5) Chronic kidney disease, stage 4 (severe): Plan: -Cr of 2.67 today, baseline is near 2.0 -Was initially diagnosed with UTI on last admission and was evaluated by Nephrology >Cr was as high as 3.35 >Cause was thought to be poor renal perfusion with his pericardial effusion with tamponade physiology and cystitis -Avoid Nephrotoxic agents -Monitor intake/output QSE -If any concerns could consult Nephrology (6) High anion gap metabolic acidosis: Plan: -AG elevated at 12 with bicarb of 18 -Lactate ordered in the ED was WNL -Unsure of etiology at this time, may be a combination of worsening renal function, poor perfusion from CHF, and ongoing UTI -Will obtain alcohol level and salicylate level now -Will obtain VBG -S/P one dose of Ceftriaxone in the ED -Will hold additional abx and hold IV fluids at this time as he has been afebrile, hemodynamically stable, and has signs of mild congestive failure on CXR today -Can use small IV boluses of fluid overnight if his BP were to fall On 5/20 anion gap improved. (7) Atrial fibrillation: Plan: -Newly diagnosed as of last admission -Still in afib at this time, currently rate controlled -Holding Eliquis for now with new CVA >Would defer to Neurology tomorrow to determine when to restart -Continue to monitor on tele (8) Heart failure with reduced ejection fraction: Plan: -Appears euvolemic to slightly hypervolemic on exam -His mucus membranes are dry, but he also had not had anything to drink since ED arrival -CXR today shows signs of pulmonary vascular congestion and small BL pleural effusions -Passed his dysphagia screen, will allow him to eat/drink with aspiration precautions (9) Elevated troponin: Plan: -Initial high sen trop elevated at 29, 2 hour repeat is in process -Patient denies chest pain -Does have t-wave inversions in the anterolateral leads -Likely due to demand from recent admission for pericardial effusions, S/P pericardiocenteses last admission, and HFrEF -Will follow repeat high sen trop and continue to trend if needed Plan The patient was discussed with Dr. Holman at the time of the admission Admission and Anticipated Discharge Date Admission Date: October 09, 2023 Subjective 83 yo male reports no new symptoms. Using his cellphone. Review of Systems Review of Systems: All systems reviewed & are unremarkable except as noted in HPI & below Physical Exam Physical Exam: General: In no acute distress HEENT: Normocephalic, atraumatic Chest/Pulm: No respiratory distress Cardiac: irregular rate and rhythm, no murmurs noted Musculoskeletal: Symmetrical and without signs of acute trauma, patient with decreased strength in the RUE compared to left with spasticity with active use, symmetrical strength in the BL Lower extremities Neuro: Alert and oriented to person, place, month, year, and president, CN II-XII tested and intact, patient with positive pronator drift and cerebellar testing in the RUE, no tremors noted Psych: No acute distress, calm and cooperative during the exam Results & Data Results & Data Vital Signs (Past 12 Hours) Vital Signs Temp Pulse Pulse Resp BP Pulse Ox O2 Del Method 10/10/23 19:13 36.7 C 84 18 142/96 H 98 Room Air 10/10/23 16:59 36.7 C 77 24 164/93 H 96 Room Air 10/10/23 14:51 73 10/10/23 11:25 36.5 C 77 18 171/86 H 97 Room Air PG Care Time/CCT Total # of Minutes Spent Total Time Spent with Patient: Total time spent is greater than 50% in coordination of care (as documented) at patient's floor/unit and/or counseling patient: Coding Level of Care Code 29497 SUB INP/OBS CARE 2/35MIN Diagnoses Acute CVA (cerebrovascular accident) I63.9 Generalized weakness R53.1 Acute confusion R41.0 Leucocytosis D72.829 Chronic kidney disease, stage 4 (severe) N18.4 High anion gap metabolic acidosis E87.29 Atrial fibrillation I48.91 Heart failure with reduced ejection fraction I50.20 Elevated troponin R79.89
[2023-10-11] MEDS: ACETAMINOPHEN 325 MG TAB PO PRN (06:03)
[2023-10-11 06:16] LABS: Basophils # (auto) 0.05 K/uL (0.00-0.20); Basophils % (auto) 0.5 %; Eosinophils # (auto) 0.22 K/uL (0.00-0.50); Eosinophils % (auto) 2.2 %; Hematocrit (blood only) 33.8 % (42.0-52.0); Hemoglobin 10.5 g/dl (14.0-18.0); Immature Granulocytes # (auto) 0.04 K/uL (0.01-0.20); Immature Granulocytes % (auto) 0.4 %; Lymphocytes # (auto) 0.61 K/uL (1.20-3.40); Lymphocytes % (auto) 6.1 %; Mean Corpuscular Hemoglobin 26.3 pg (25.0-34.0); Mean Corpuscular Hgb Conc 31.1 g/dL (32.0-36.0); Mean Corpuscular Volume 84.7 fL (80.0-100.0); Mean Platelet Volume 9.5 fL (9.4-12.4); Monocytes # (auto) 0.57 K/uL (0.11-0.59); Monocytes % (auto) 5.7 %; Neutrophils # (auto) 8.49 K/uL (1.40-6.50); Neutrophils % (auto) 85.1 %; Platelet Count 356 K/uL (130-400); RDW Coefficient of Variation 15.9 % (11.5-14.5); RDW Standard Deviation 49.8 fL (36.4-46.3); Red Blood Count 3.99 M/uL (4.70-6.10); White Blood Count 9.98 K/ul (4.8-10.8)
[2023-10-11 06:25] LABS: Albumin Globulin Ratio 0.9 (0.9-2); Albumin Level 3.2 gm/dl (3.4-5.0); BUN Creatinine Ratio 16.4 (10-20); Bilirubin,Total 0.4 mg/dl (0.2-1.0); Calcium 9.1 mg/dl (8.6-10.3); Creatinine Clr Calc Pharmacy 22.9 ml/min; Est GFR (African American) 27.3 ml/min; Est GFR (Non-African American) 23.6 ml/min; Globulin 3.5 gm/dl (2.5-4.0); Magnesium 2.1 mg/dl (1.7-2.4); Potassium 4.6 mmol/L (3.5-5.1); Total Protein 6.7 gm/dl (6.0-8.3)
[2023-10-11 06:40] LABS: INR 1.1 (0.9-1.1); Prothrombin Time 11.9 Seconds (9.0-12.0)
[2023-10-11] MEDS ORDERED: PROCHLORPERAZINE 5 MG in SYRINGE 4 ML IV PRN (16:06)
[2023-10-11] MEDS: ONDANSETRON INJ 2 MG/ML 2 ML VIAL IV PRN (16:07)
--- NOTE | 2023-10-11 21:50 | Hospitalist Progress Note ---
Date of Service October 11, 2023 Assessment & Plan (1) Acute CVA (cerebrovascular accident): Plan: -Admit to the PCU on tele and pulse oximetry -Currently stable -Presented to the ED this afternoon after he was found by his neighbor in his recliner, too weak to get out of bed and confused -Was found to have a Large acute right temporoparietal infarct on CT of the head/brain, CTA of the head/neck were negative for acute findings other than the new CVA -ED spoke with Graham Benedictstroke who remotely evaluated the patient: >Was not a TNK candidate due to time of last known well being last evening >Recommended obtaining MRI of the brain wo con >Recommended holding patient's Eliquis tonight due to the size of the CVA and risk of hemorrhagic conversion on anticoagulation >Recommended keeping systolic BP < 180 mmhg -Patient's acute CVA is likely due to his newly diagnosed afib and not taking his Eliquis for multiple days -Discussed risk that his large CVA could hemorrhagically convert leading to a intracranial hemorrhage >Patient expressed understanding and clearly explained that if this were to happen he would NOT to be transferred to a Tertiary Care center for intervention >In the event if he were to have hemorrhagic conversion he would want to be converted to comfort measures -Will continue patient's Crestor -Neurology consult placed -Patient passed dysphagia screen Repeat CT scan on 10/09 showed no hemorrhagic conversion. will repeat again on 10/11 if negative will consider discharge. Disposition dependant on Physical therapy hold eliquis for 1 week (2) Generalized weakness: Plan: -Likely multifactorial including new, large CVA, CKD, deconditioning from recent admission, and UTI -Continue precautions as per Acute CVA plan -PT/OT consults -Will treat any infectious or metabolic abnormalities moving forward -Will likely need rehab and/or placement on DC (3) Acute confusion: Plan: -Resolved -Patient is currently back to his neurologic baseline per his friend who is bedside -Confusion likely a combination of acute CVA, CKD, and intravascular depletion -Continue neuro checks, repeat CT head/brain wo con for concerns of new or recurrent confusion (4) Leucocytosis: Plan: -Noted to have a leukocytosis of 11 today -Lactate and procal are WNL -He has been afebrile since arrival -Likely reactive due to being unable to get out of his chair with ongoing attempts overnight -His UTI diagnosed last admission was likely due to colonization, was treated with cefepime/zosyn while inpatient and discharged on Bactrim/Cipro -S/P one dose of Ceftriaxone in the ED -Blood cultures and urine culture were obtained -Will hold additional abx overnight and monitor fever curve -If clinical suspicion for infection increases could consult ID (5) Chronic kidney disease, stage 4 (severe): Plan: -Cr of 2.67 today, baseline is near 2.0 -Was initially diagnosed with UTI on last admission and was evaluated by Nephrol ogy >Cr was as high as 3.35 >Cause was thought to be poor renal perfusion with his pericardial effusion with tamponade physiology and cystitis -Avoid Nephrotoxic agents -Monitor intake/output QSE -If any concerns could consult Nephrology (6) High anion gap metabolic acidosis: Plan: -AG elevated at 12 with bicarb of 18 -Lactate ordered in the ED was WNL -Unsure of etiology at this time, may be a combination of worsening renal function, poor perfusion from CHF, and ongoing UTI -Will obtain alcohol level and salicylate level now -Will obtain VBG -S/P one dose of Ceftriaxone in the ED -Will hold additional abx and hold IV fluids at this time as he has been afebrile, hemodynamically stable, and has signs of mild congestive failure on CXR today -Can use small IV boluses of fluid overnight if his BP were to fall On 5/20 anion gap improved. (7) Atrial fibrillation: Plan: -Newly diagnosed as of last admission -Still in afib at this time, currently rate controlled -Holding Eliquis for one week with new moderate to large ischemic CVA -Continue to monitor on tele (8) Heart failure with reduced ejection fraction: Plan: -Appears euvolemic to slightly hypervolemic on exam -His mucus membranes are dry, but he also had not had anything to drink since ED arrival -CXR today shows signs of pulmonary vascular congestion and small BL pleural effusions -Passed his dysphagia screen, will allow him to eat/drink with aspiration precautions (9) Elevated troponin: Plan: -Initial high sen trop elevated at 29, 2 hour repeat is in process -Patient denies chest pain -Does have t-wave inversions in the anterolateral leads -Likely due to demand from recent admission for pericardial effusions, S/P pericardiocenteses last admission, and HFrEF -trop mildly increased to 30's Plan Admission and Anticipated Discharge Date Admission Date: October 09, 2023 Subjective Patient reports no new symptoms. Review of Systems Review of Systems: All systems reviewed & are unremarkable except as noted in HPI & below Physical Exam Physical Exam: General: In no acute distress HEENT: Normocephalic, atraumatic Chest/Pulm: No respiratory distress Cardiac: irregular rate and rhythm, no murmurs noted Musculoskeletal: Symmetrical and without signs of acute trauma, patient with decreased strength in the RUE compared to left with spasticity with active use, symmetrical strength in the BL Lower extremities Neuro: Alert and oriented to person, place, month, year, and president, CN II-XII tested and intact, patient with positive pronator drift and cerebellar testing in the RUE, no tremors noted Psych: No acute distress, calm and cooperative during the exam Results & Data Results & Data Vital Signs (Past 12 Hours) Vital Signs Temp Pulse Pulse Resp BP Pulse Ox O2 Del Method 10/11/23 19:53 36.8 C 83 18 143/86 H 95 Room Air 10/11/23 16:02 36.6 C 71 16 138/76 99 Room Air 10/11/23 15:25 100 10/11/23 15:16 83 10/11/23 11:32 36.5 C 94 H 21 125/88 95 Room Air PG Care Time/CCT Total # of Minutes Spent Total Time Spent with Patient: Total time spent is greater than 50% in coordination of care (as documented) at patient's floor/unit and/or counseling patient: Coding Level of Care Code 74976 SUB INP/OBS CARE 3/50MIN Diagnoses Acute CVA (cerebrovascular accident) I63.9 Generalized weakness R53.1 Acute confusion R41.0 Leucocytosis D72.829 Chronic kidney disease, stage 4 (severe) N18.4 High anion gap metabolic acidosis E87.29 Atrial fibrillation I48.91 Heart failure with reduced ejection fraction I50.20 Elevated troponin R79.89
--- NOTE | 2023-10-12 07:05 | Hospitalist Progress Note ---
Date of Service October 12, 2023 Assessment & Plan (1) Acute CVA (cerebrovascular accident): Plan: Presented 10/11/23 too weak to get out of bed and confused -Was found to have a Large acute right temporoparietal infarct on CT of the head/brain, CTA of the head/neck were negative for acute findings other than the new CVA MRI with Acute infarcts within the right MCA territory measure up to 6 cm within the right temporal parietal distribution. Cytotoxic edema is noted without acute intracranial hemorrhage or midline shift. Involutional changes with chronic microvascular ischemic disease. -ED spoke with Petra Telestroke who remotely evaluated the patient: >Was not a TNK candidate due to time of last known well being last evening >Recommended holding patient's Eliquis tonight due to the size of the CVA and risk of hemorrhagic conversion on anticoagulation -Patient's acute CVA is likely due to his newly diagnosed afib and not taking his Eliquis for multiple days -Discussed risk that his large CVA could hemorrhagically convert leading to a intracranial hemorrhage >Patient expressed understanding and clearly explained that if this were to happen he would NOT to be transferred to a Tertiary Care center for intervention >In the event if he were to have hemorrhagic conversion he would want to be converted to comfort measures -Will continue patient's Crestor -Patient passed dysphagia screen Repeat CT scan on 10/09 showed no hemorrhagic conversion, ordered repeat again on 10/11 if negative will consider discharge. hold eliquis for 1 week (2) Generalized weakness: Plan: encephalopathy from stroke and metabolic-Likely multifactorial including new, large CVA, CKD, deconditioning from recent admission, and nancy albicans UTI poa -PT/OT consults -Will likely need rehab and/or placement on DC S/P one dose of Ceftriaxone in the ED -Blood cultures and urine culture were obtained -Will hold additional abx overnight and monitor fever curve -If clinical suspicion for infection increases could consult ID (3) Chronic kidney disease, stage 4 (severe): Plan: CLAYTON with CKD4-Cr of 2.67 today, baseline is near 2.0 -If any concerns could consult Nephrology anion gap metabolic acidosis likely from decreased perfusion (4) Atrial fibrillation: Plan: -Newly diagnosed as of last admission -Still in afib at this time, currently rate controlled -Holding Eliquis for one week with new moderate to large ischemic CVA (5) Heart failure with reduced ejection fraction: Plan: -Appears euvolemic to slightly hypervolemic on exam -CXR today shows signs of pulmonary vascular congestion and small BL pleural effusions -Passed his dysphagia screen, will allow him to eat/drink with aspiration precautions -Initial high sen trop elevated at 29-36 -Patient denies chest pain -Does have t-wave inversions in the anterolateral leads Plan Admission and Anticipated Discharge Date Admission Date: October 09, 2023 Results & Data Results & Data Vital Signs (Past 12 Hours) Vital Signs Temp Pulse Pulse Resp BP Pulse Ox O2 Del Method 10/12/23 03:05 97.7 F 91 H 18 131/70 97 Room Air 10/12/23 00:49 79 10/11/23 23:02 97.7 F 68 18 135/84 96 Room Air 10/11/23 19:53 98.2 F 83 18 143/86 H 95 Room Air PG Care Time/CCT Total # of Minutes Spent Total Time Spent with Patient: Total time spent is greater than 50% in coordination of care (as documented) at patient's floor/unit and/or counseling patient: Coding Diagnoses Acute CVA (cerebrovascular accident) I63.9 Generalized weakness R53.1 Chronic kidney disease, stage 4 (severe) N18.4 Atrial fibrillation I48.91 Heart failure with reduced ejection fraction I50.20
--- NOTE | 2023-10-12 07:54 | Pharmacy Report ---
Pharmacy Glycemic Short Note 2 - Date of Service October 12, 2023 - Glycemic Short BSG Results (Last 24 hours): 10/11/23 10/11/23 10/11/23 11:06 16:21 20:06 POC Glucose 164 H 125 H 118 H 10/12/23 07:18 POC Glucose 117 H OUTPATIENT ANTIDIABETIC REGIMEN: * Basaglar 20 units SC PM * Jardiance 50 mg PO daily * HbA1c: 7.5% (10/10/23) ASSESSMENT: 10/11: * Patients BSGs were [id number] mg/dL yesterday and fasting this morning was 117 mg/dL. * Novolog was mildly tightened yesterday morning after reviewing the previous days BSGs. Will continue with current scale and lantus dosing * Patient is ordered a diet but consumed very little yesterday. 10/09 * 83 yo M admitted on 10/09/23 secondary to an acute stroke. Pharmacy has been consulted to assist with inpatient glycemic management. Patient is a Type 2 diabetic as an outpatient. Please refer to outpatient regimen and most recent HbA1c above. * Patient was recently admitted this month and blood sugars were reasonably controlled on Lantus 5 units SC BID and Novolog SC ACHS with CF 45 and CR 15. * Patient is currently ordered a diet and has passed his swallow evaluation per RN. Likely will eat first meal at lunch today. * Received 5 units of Lantus last evening for a BSG of 127 mg/dL. Overnight check was 97 mg/dL. Fasting BSG was 95 mg/dL this AM. Novolog is ordered but has not been required as of yet. * Will continue with 5 units of Lantus this evening as BSGs should trend up once patient starts consuming carbs. Continue with previously ordered Novolog parameters. PLAN FOR INPATIENT GLYCEMIC CONTROL: * Hold outpatient oral diabetes medications * Basal insulin * Lantus 5 units SC HS * Bolus insulin * NovoLog per scale ACHS or Q6hrs while NPO * Goal Range: Low 110 mg/dL - High 140 mg/dL * Correction Factor: 35 mg/dL/unit * Nutritional / Prandial insulin per carb ratio of 1 unit per 11 grams CHO consumed
[2023-10-12 08:11] LABS: Basophils # (auto) 0.05 K/uL (0.00-0.20); Basophils % (auto) 0.5 %; Eosinophils # (auto) 0.18 K/uL (0.00-0.50); Eosinophils % (auto) 1.8 %; Hematocrit (blood only) 35.8 % (42.0-52.0); Hemoglobin 11.1 g/dl (14.0-18.0); Immature Granulocytes # (auto) 0.05 K/uL (0.01-0.20); Immature Granulocytes % (auto) 0.5 %; Lymphocytes # (auto) 0.63 K/uL (1.20-3.40); Lymphocytes % (auto) 6.2 %; Mean Corpuscular Hemoglobin 26.7 pg (25.0-34.0); Mean Corpuscular Volume 86.1 fL (80.0-100.0); Mean Platelet Volume 9.4 fL (9.4-12.4); Monocytes # (auto) 0.71 K/uL (0.11-0.59); Neutrophils # (auto) 8.54 K/uL (1.40-6.50); Platelet Count 354 K/uL (130-400); RDW Standard Deviation 50.8 fL (36.4-46.3); Red Blood Count 4.16 M/uL (4.70-6.10); White Blood Count 10.16 K/ul (4.8-10.8)
[2023-10-12 08:39] LABS: Albumin Globulin Ratio 0.9 (0.9-2); Albumin Level 3.2 gm/dl (3.4-5.0); BUN Creatinine Ratio 16.9 (10-20); Bilirubin,Total 0.4 mg/dl (0.2-1.0); Calcium 8.9 mg/dl (8.6-10.3); Est GFR (African American) 24.6 ml/min; Est GFR (Non-African American) 21.2 ml/min; Globulin 3.4 gm/dl (2.5-4.0); Magnesium 2.1 mg/dl (1.7-2.4); Potassium 5.5 mmol/L (3.5-5.1); Total Protein 6.6 gm/dl (6.0-8.3)
[2023-10-12 08:56] LABS: INR 1.1 (0.9-1.1); Prothrombin Time 11.8 Seconds (9.0-12.0)
--- NOTE | 2023-10-12 10:35 | CT Scan Report ---
CT head/brain wo con CLINICAL HISTORY: ischemic stroke Technique: Contiguous axial CT images of the head were acquired from the base of the skull to the jaron rosi without intravenous contrast administration. Images were viewed in brain, subdural and bone [facility]. Automated dose lowering techniques and/or adjustment according to patient size were utilized for this exam. Comparison: Comparison is made to CT head 10/10/2023 Findings: White matter edema in the right frontal and parietal lobes is better defined than on the prior exam. No significant midline shift or herniation is seen. No evidence of hemorrhage. Imaged portions of the paranasal sinuses and mastoid air cells are clear. The orbits appear normal. There are no acute fractures of the calvaria or scalp swelling. Impression: Redemonstration of findings compatible with right-sided acute infarct without evidence of hemorrhagic transformation. ACT 112: Negative or not required by law. Electronically signed by: Hector Weinstein M.D. 10/12/2023 10:34 AM
[2023-10-12 11:24] VITALS: BP 120/77; RESP 20; TEMP 97.7
[2023-10-12 12:57] VITALS: O2SAT 100
[2023-10-12 15:39] VITALS: PULSE 80
--- NOTE | 2023-10-12 19:31 | Discharge Summary ---
Discharge Summary Date of Service October 12, 2023 Notes For Next Care Provider pt with large CVA without hemorrhagic conversion, holding apixiban for one week then consider restart, continues on aspirin Admission HPI Per Admitting Provider Gian is a 83 year old male with a PMH significant for New onset HFrEF (LVEF of 45-50% as of 10/02/23), new onset atrial fibrillation (On eliquis), DMII, hx of rectal cancer S/P colostomy and chronic indwelling suprapubic catheter placement, and HTN who presented to the [facility] ED on 10/09/23 via EMS after a neighbor found him in his living room recliner this afternoon after not hearing form him. Per family the last known well was approximately 1900 on 10/07 when his son spoke to him on the phone. The patient was noted to be hypertensive on arrival at 170/96 and tachycardic at 92 but otherwise stable. Labs were significant for a leukocytosis of 11 with neutrophile predominance of 10, Cr of 2.67 (Still recovering from last admission but baseline is near 2.0), anion gap of 12 with bicarb of 18, initial high sen trop of 29, BUN of 1073 (no previous available), UA with cloudy urine, 3+ protein, 1+ LE, >50 WBC, but negative for bacteria, and full respiratory biofire negative. Chest xray was read as "1. Cardiomegaly with pulmonary vascular congestion. 2. Small pleural effusions with mild bibasilar consolidation.". CT of the head/brain wo con was read as "1. La rge acute right temporoparietal infarct. 2. No acute intracranial hemorrhage or midline shift.". CTA of the head/neck were read as "1. Acute right cerebral infarct is better evaluated on the same day head CT. 2. Unremarkable CTA of the head and neck.". Per the ED staff, they spoke with Dr. Kidd at [facility] regarding the new CT head findings. Dr. Kidd evaluated the patient remotely and recommended obtaining MRI of the brain and holding patient's Eliquis tonight due to the size of CVA. Recommended keep the patient's systolic blood pressure under 180 mmhg. Prior to admission the patient was given a dose of ceftriaxone. Patient was admitted from 09/27/23-10/05/23 after being found to be in new onset CHF and Afib on evaluation in the ED for a fall at home 10 days prior, see discharge summary from 10/07/23 for complete details. Trauma workup at that time was negative for acute findings. He underwent pericardiocentesis on 09/29/[address] Telles. He was unable to be on anticoagulation from 09/28-10/04 as he had to undergo pericardiocentesis and was a fall risk. Once stable he was initiated on low dose Eliquis on 10/04 (low dose due to renal function). He was diagnosed with Klebsiella/Pseudomonas UTI and was initially treated with Cefepime and Zosyn but discharged on a 4 day course of Bactrim and ciprofloxacin. He was offered inpatient rehab prior to discharge but wanted to be discharge home instead. At the time of the exam the patient was lying in bed in no acute distress with a friend bedside, history was obtained from both as the patient gave consent for his friend to stay during my exam. The patient's friend said that she came to his house this afternoon to check on him. When she entered the house she found the home in disarray with the fridge door open, items scattered on the floor, and the patient sitting in his recliner. The patient states that he does not remember the events leading to the mess. He remembers wanting to get out of his recliner this am to take his medications but was too weak. When asked, he states that he does not remember when he last took a dose of Eliquis, it could have been the evening of 10/04. When asked, he states that right UE feels weaker than his left but he does not believe that he has any other focal defects. He denies recent changes in vision, hearing, taste, smell, paresthesias, chest pain, cough, SOB, abd pain, nausea, vomiting, increased ostomy output. The patient is a DNR/DNI and his son would be his medical decision maker if he cannot make decisions himself. I discussed the risk of hemorrhagic conversion as his acute CVA is large. >Patient expressed understanding and clearly explained that if this were to happen he would NOT want to be transferred to a Tertiary Care center for intervention >In the event if he were to have hemorrhagic conversion he would want to be transitioned to comfort measures Please refer to Dr. Holman's attestation for any changes to the treatment plan Principal Dx & Hospital Course #1 = Principal Diagnosis (1) Acute CVA (cerebrovascular accident): Presented 10/11/23 too weak to get out of bed and confused -Was found to have a Large acute right temporoparietal infarct on CT of the head/brain, CTA of the head/neck were negative for acute findings other than the new CVA MRI with Acute infarcts within the right MCA territory measure up to 6 cm within the right temporal parietal distribution. Cytotoxic edema is noted without acute intracranial hemorrhage or midline shift. Involutional changes with chronic microvascular ischemic disease. -ED spoke with Petra Telestroke who remotely evaluated the patient: >Was not a TNK candidate due to time of last known well being last evening >Recommended holding patient's Eliquis tonight due to the size of the CVA and risk of hemorrhagic conversion on anticoagulation -Patient's acute CVA is likely due to his newly diagnosed afib and not taking his Eliquis for multiple days -Discussed risk that his large CVA could hemorrhagically convert leading to a intracranial hemorrhage >Patient expressed understanding and clearly explained that if this were to happen he would NOT to be transferred to a Tertiary Care center for interven tion >In the event if he were to have hemorrhagic conversion he would want to be converted to comfort measures -Will continue patient's Crestor -Patient passed dysphagia screen Repeat CT scan on 10/09 showed no hemorrhagic conversion, 10/11 CT head R edemonstration of findings compatible with right-sided acute infarct without evidence of hemorrhagic transformation. hold eliquis for 1 week (2) Generalized weakness: encephalopathy from stroke and metabolic-Likely multifactorial including new, large CVA, CKD, deconditioning from recent admission, and nancy albicans urinary culture present on admission has no symptoms, refused to not wear leg bag, understands is not recommended -Will agree rehab placement on DC S/P one dose of Ceftriaxone in the ED -Blood cultures and urine culture were obtained -Will hold additional abx (3) Chronic kidney disease, stage 4 (severe): CLAYTON with CKD4-Cr of 2.67 expect continue improvement wtih good oral intake, baseline is near 2.0 anion gap metabolic acidosis likely from decreased perfusion (4) Atrial fibrillation: -Newly diagnosed as of last admission -Still in afib at this time, currently rate controlled -Holding Eliquis for one week with new moderate to large ischemic CVA (5) Heart failure with reduced ejection fraction: -Appears euvolemic to slightly hypervolemic on exam -CXR today shows signs of pulmonary vascular congestion and small BL pleural effusions -Passed his dysphagia screen, will allow him to eat/drink with aspiration precautions -Initial high sen trop elevated at 29-36 secondary to demand ischemia -Patient denies chest pain -Does have t-wave inversions in the anterolateral leads Plan Discharge Exam pt awake and conversant no neurologic deficits Updated Medication List Medication Instructions Recorded Confirmed Type ferrous sulfate 325 mg (65 mg 325 mg PO QAM 02/24/18 10/09/23 History iron) tablet rosuvastatin 10 mg tablet 10 mg PO HS 02/24/18 10/09/23 History cyanocobalamin (vitamin B-12) 1,000 mcg PO DAILY 12/19/19 10/09/23 History 1,000 mcg tablet (Vitamin B-12) cholecalciferol (vitamin D3) 25 2,000 unit PO DAILY #180 tabs 04/25/20 10/09/23 Rx mcg (1,000 unit) tablet (Vitamin D3) trospium 60 mg capsule,extended 60 mg PO DAILYBB 04/18/23 10/09/23 History release 24 hr insulin glargine 100 unit/mL (3 20 unit subcut PM 09/27/23 10/09/23 History mL) subcutaneous pen (Basaglar KwikPen U-100 Insulin) sitagliptin phosphate 50 mg tablet 50 mg PO DAILY 09/27/23 10/09/23 History (Januvia) apixaban 2.5 mg tablet (Eliquis) 2.5 mg PO BID #30 tabs 10/05/23 10/09/23 Rx aspirin 81 mg tablet,delayed 81 mg PO DAILY #30 tabs 10/12/23 Rx release Hospital Stay Data Consultations 10/09/23 16:38 ED Decision to Admit Stat 10/09/23 17:19 Consult Neurology Routine Diagnostic Imagining Performed 10/09/23 14:19 CT head/brain wo con Stat 10/09/23 15:30 CTA head w con [CT angio head w con] Stat CTA neck with con [CT angio neck with con] Stat 10/09/23 16:37 MRI Brain [MR brain wo con] Stat 10/10/23 18:00 CT head/brain wo con Urgent 10/12/23 09:00 CT head/brain wo con Routine Pending Results Patient Have Any Pending Studies at Discharge: No Discharge Instructions Given to Patient (Per Discharging Provider) Risk Factors for Stroke: You can reduce your chances of stroke by working with your medical provider to adopt a healthy lifestyle. Some specific ways to lower your chance of stroke are: * If you are a smoker, now is the time to stop smoking cigarettes * If you are diabetic, improve the control of your blood sugars * Avoid excessive amounts of alcohol * Control high blood pressure * Lose weight if you are overweight * Be sure to lead an active lifestyle * Eat a healthy diet low in salt, cholesterol and fat You should know about other risk factors for stroke that you are unable to control. These include: * Age 55 years or older * Male gender * Certain racial groups: , or / * Family History of Stroke, Mini stroke or Heart Attack * Sickle Cell Disease Follow Up: It is important for you to keep your follow up appointments with your medical provider. Who to Call and When: Medical Emergencies: Call 911 immediately if you experience any of the following warning signs and symptoms of Stroke: * Sudden numbness or weakness of the face, arm or leg, especially on one side of the body * Sudden confusion, trouble speaking or understanding * Sudden trouble seeing in one or both eyes * Sudden trouble walking, dizziness, loss of balance or coordination * Sudden severe headache with no cause Do not delay calling 911 if you experience any warning signs or symptoms of a stroke. Delay in seeking medical attention may affect what treatments can be given to you. . Total Time Total Time Spent Total Time Spent (In Minutes): greater than 30 minutes required to complete discharge Coding Level of Care Code 07313 INP/OBS DISCH >30 MIN Diagnoses Acute CVA (cerebrovascular accident) I63.9 Generalized weakness R53.1 Chronic kidney disease, stage 4 (severe) N18.4 Atrial fibrillation I48.91 Heart failure with reduced ejection fraction I50.20
== END 2023-10-12 17:10 | DRG 65 ==
LOC: ED 13:43 → 2E 17:19 → SUATTDRO 17:19 → 2E 18:38

== ENCOUNTER 2023-10-22 10:09 | Inpatient (IN) ==
--- NOTE | 2023-10-22 10:12 | ED Triage Note ---
Date of Service October 22, 2023 Provider in Triage Author: Ramses Calabrese History of Present Illness This patient was briefly evaluated while in triage. An abbreviated physical exam was performed. This patient is a 83-year-old Male, recent admission for generalized weakness, acute confusion, non-ST elevation NM (NSTEMI), leucocytosis, and acute CVA (cerebrovascular accident), who presents to the ED for evaluation of []. Physical Exam Initial orders for labs and / or imaging were placed and patient was placed in the waiting area until a bed is available. Please see further documentation for the full ED course.
--- NOTE | 2023-10-22 10:16 | ED Triage Note ---
Date of Service October 22, 2023 Provider in Triage Author: Gunnar Davis History of Present Illness This patient was briefly evaluated while in triage. An abbreviated physical exam was performed. This patient is a 83-year-old Male, recent admission for generalized weakness, acute confusion, non-ST elevation IN (NSTEMI), leucocytosis, acute CVA (cerebrovascular accident) who presents to the ED for evaluation. The patient reports that he was brought here against his will by EMS. When asked why he called 911, he reports that he did not, and that the home health aide called. The patient admits that he fell and needed help getting up. The patient reports that he did not fall. Patient reports that he was between the recliner and wall. Patient was just discharged from rehab last week. The patient was home today (and lives alone), tried to get up and fell. According to medics, the patient was found not wearing his colostomy bag, and there was feces all over the place. When asking the patient where his colostomy bag went, he reports that it just came loose, and he was able to put a new bag on without any complications. Patient also has a suprapubic catheter. Medical Command was provided by Dr. Wolfe for an authorized refusal, however the patient elected to come to the emergency department for further evaluation. Physical Exam CONSTITUTIONAL: Healthy and well nourished. Alert and oriented X 3. GCS 15. HEENT: No scalp abrasions, ecchymosis, epistaxis, raccoon's eyes or [place] sign. NECK: Patient is exhibiting active range of motion without discomfort. RESPIRATORY: Clear to auscultation bilaterally with no wheezing, crackles, rhonchi or stridor. CARDIOVASCULAR: Regular rate and rhythm with no murmurs, rubs or gallops. GASTROINTESTINAL: Bowel sounds present in all quadrants. MUSCULOSKELETAL: Patient has full range of motion of all major joints without discomfort. INTEGUMENTARY: No rash or other significant dermatologic conditions noted. HEMATOLOGIC: No ecchymosis or petechiae. PSYCHIATRIC: Confrontational affect. NEUROLOGIC: No focal neurologic deficits noted. Initial orders for labs and / or imaging were placed and patient was placed in the waiting area until a bed is available. Please see further documentation for the full ED course.
--- NOTE | 2023-10-22 11:11 | XRay Report ---
XR chest 1V portable HISTORY: weakness COMPARISON: Chest 10/09/2023. FINDINGS: No pneumothorax. No pleural fusions. The heart remains enlarged. No focal lung consolidatio ns to suggest a pneumonia. No evidence for pulmonary edema. There are old, healed right-sided rib fra ctures and an old left humeral fracture. IMPRESSION: Stable cardiomegaly. Otherwise, no acute process within the chest. ACT 112: Negative or not required by law. Electronically signed by: Tadeo Mcneill M.D. 10/22/2023 11:09 AM
--- NOTE | 2023-10-22 11:49 | Emergency Department Note ---
History of Present Illness General Chief complaint: Neuro Symptoms/Deficit Time Seen by Provider: 10/22/23 11:24 Source: patient, family (Friend who is at the bedside), RN notes reviewed and old records reviewed (Cardiology office visit on 10-18 for pericardial effusion. I also reviewed discharge summary from [facility] on 10/18-[facility]) Mode of arrival: ambulatory Limitations: no limitations History of Present Illness This patient is a 83-year-old male who does have a complex medical history and had a recent stroke and, comes in after having some confusion overnight. He was here and had a stroke with residual vision deficits in his left eye with some confusion at times he was seen at [facility] and was discharged on Tuesday his friend who is at the bedside says that he had trouble getting up this morning he called his son in the middle the night and seemed confused his speech may have been slurred. His ostomy bag was not on and he had stool everywhere and they came to check on him he had no fall or trauma he seems to be doing fine now and is not confused he answers all questions appropriately says he feels good and came here under duress. He was seen by Dr. Telles on the and had an echo and his pericardial effusion has been stable to start him back on his Eliquis. He has had no fall, no fever, no chest pain or shortness of breath, no focal numbness or weakness, no change in vision, no nausea or vomiting ,no palpitations. No urinary symptoms no blood or melena in stool Home Medications Medication Instructions Recorded Confirmed Type ferrous sulfate 325 mg (65 mg 325 mg PO QAM 02/24/18 10/22/23 History iron) tablet rosuvastatin 10 mg tablet 10 mg PO HS 02/24/18 10/22/23 History cyanocobalamin (vitamin B-12) 1,000 mcg PO DAILY 12/19/19 10/22/23 History 1,000 mcg tablet (Vitamin B-12) cholecalciferol (vitamin D3) 25 2,000 unit PO DAILY #180 tabs 04/25/20 10/22/23 Rx mcg (1,000 unit) tablet (Vitamin D3) trospium 60 mg capsule,extended 60 mg PO DAILYBB 04/18/23 10/22/23 History release 24 hr sitagliptin phosphate 50 mg tablet 50 mg PO DAILY 09/27/23 10/22/23 History (Januvia) apixaban 2.5 mg tablet (Eliquis) 2.5 mg PO BID #30 tabs 10/05/23 10/22/23 Rx aspirin 81 mg tablet,delayed 81 mg PO DAILY #30 tabs 10/12/23 10/22/23 Rx release docusate sodium 100 mg capsule 100 mg PO BID 10/13/23 10/22/23 History (Colace) insulin glargine 100 unit/mL (3 5 unit subcut PM 10/19/23 10/22/23 History mL) subcutaneous pen (Basaglar KwikPen U-100 Insulin) amlodipine 2.5 mg tablet 2.5 mg PO DAILY 10/22/23 10/22/23 History omeprazole 20 mg capsule,delayed 20 mg PO DAILY 10/22/23 10/22/23 History release Allergies Allergy/AdvReac Type Severity Reaction Status Date / Time atorvastatin [From Lipitor] Allergy Unknown Verified 10/22/23 14:37 Past Med/Surg History Problem List (Updated 10/22/23 @ 16:40 by Gunnar Davis MD) Acute UTI (urinary tract infection) (Acute) Abnormal CT of brain (HFpEF) heart failure with preserved ejection fraction Failure to thrive in adult Episode of confusion (Acute) Weakness (Acute) Anticoagulant long-term use (Acute) Recent cerebrovascular accident (CVA) (Acute) Elevated troponin High anion gap metabolic acidosis Heart failure with reduced ejection fraction Atrial fibrillation Acute CVA (cerebrovascular accident) (Acute) Leucocytosis (Acute) Non-ST elevation MA (NSTEMI) (Acute) Acute confusion (Acute) Generalized weakness (Acute) Chronic kidney disease, stage 4 (severe) Pericardial effusion Cardiomegaly (Acute) Edema of right lower extremity (Acute) Rib pain (Acute) New onset of congestive heart failure New onset atrial fibrillation (Acute) Fall (Acute) Food impaction of esophagus Esophageal abnormality (Acute) Acute UTI (urinary tract infection) (Acute) Vomiting (Acute) Acute kidney injury Skin lesion History of urinary retention Suprapubic catheter Benign prostatic hyperplasia with urinary obstruction and other lower urinary tract symptoms (Acute) DM (diabetes mellitus), type 2 (Acute) Hyperlipidemia (Acute) Hypertension (Acute) Urinary retention (Acute) Anemia Vitamin D deficiency Diabetes Diarrhea Obstructive uropathy (Chronic) Pre-syncope Rectal cancer (Chronic 06/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) "Rectal bleeding Status post colonoscopy and biopsy 06/17/2017 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 Plan for combined radiation and chemotherapy followed by possible resection Status post completion of combined radiation and chemotherapy August 30, 2017." On 07/07/17 13:09 Felicia Hannon wrote "Rectal bleeding Status post colonoscopy and biopsy 06/17/2017 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 Plan for combined radiation and chemotherapy followed by possible resection" Medical History Jewell UTI 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 Chronic kidney disease, stage III (moderate) Family History Other Family history non-contributory Social History Smoking Status: Never smoker Do You Dip or Chew Tobacco: No; Hx Alcohol Use: No Hx Substance Use: No Preferred Language: Scottish Communication Ability: Effective Visual Impairment: No Limitations 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: Normal Recreational Specialist Required: No Beliefs That Will Affect Care: None marital status: / Current Living Situation: Alone Current Living Situation Comment: home current occupational status: retired Feels Safe at Home: Yes Assistive Devices: None Physical Exam Vital Signs Vital Signs - 24 hr 10/22/23 10:23 10/22/23 12:00 10/22/23 12:00 Temperature 37.2 C Temperature Source Temporal Artery Scan Pulse Rate - Lying Pulse Rate - Sitting Pulse Rate - Standing Pulse Rate 89 Pulse Rate [Apical] Respiratory Rate 16 16 Respiratory Effort / Characteristics Non-Labored Spontaneous Non-Labored Spontaneous Respiratory Depth Normal Normal Respiratory Pattern Blood Pressure - Lying Blood Pressure - Sitting Blood Pressure- Standing Blood Pressure 168/102 H Blood Pressure [Right Arm] Blood Pressure Mean 124 Blood Pressure Mean [Right Arm] Blood Pressure Position Sitting Blood Pressure Position [Right Arm] Pulse Oximetry 100 Oxygen Delivery Method Room Air Room Air Room Air Sepsis Recent Fever Within 48 Hours No Sepsis New/Unexplained Change in Mental Status N/A Sepsis Action Taken by Nursing No Action Required 10/22/23 12:00 10/22/23 12:40 10/22/23 13:06 Temperature Temperature Source Pulse Rate - Lying 68 Pulse Rate - Sitting 78 Pulse Rate - Standing 98 H Pulse Rate 78 84 Pulse Rate [Apical] Respiratory Rate 17 Respiratory Effort / Characteristics Respiratory Depth Respiratory Pattern Blood Pressure - Lying 135/101 H Blood Pressure - Sitting 136/91 Blood Pressure- Standing 138/86 Blood Pressure Blood Pressure [Right Arm] Blood Pressure Mean Blood Pressure Mean [Right Arm] Blood Pressure Position Blood Pressure Position [Right Arm] Pulse Oximetry 93 Oxygen Delivery Method Room Air Sepsis Recent Fever Within 48 Hours Sepsis New/Unexplained Change in Mental Status Sepsis Action Taken by Nursing 10/22/23 14:04 Temperature Temperature Source Pulse Rate - Lying Pulse Rate - Sitting Pulse Rate - Standing Pulse Rate Pulse Rate [Apical] 80 Respiratory Rate 24 Respiratory Effort / Characteristics Non-Labored Spontaneous Respiratory Depth Normal Respiratory Pattern Regular Blood Pressure - Lying Blood Pressure - Sitting Blood Pressure- Standing Blood Pressure Blood Pressure [Right Arm] 160/81 H Blood Pressure Mean Blood Pressure Mean [Right Arm] 107 Blood Pressure Position Blood Pressure Position [Right Arm] Semi-fowlers Pulse Oximetry 100 Oxygen Delivery Method Room Air Sepsis Recent Fever Within 48 Hours Sepsis New/Unexplained Change in Mental Status Sepsis Action Taken by Nursing General: Well developed well nourished chronically ill-appearing older male who is alert and orient x 3 answers all questions appropriate with normal speech. He is interactive and not confused and in no acute distress, breathing comfortably on room air. Normal speech HEENT: Normal cephalic atraumatic. Pupils are equal round and reactive to light. Extraocular movements are intact. Oropharynx is pink with moist mucous membranes. No swelling of the mouth lips or tongue. Neck: Supple with a midline trachea. No meningeal signs or stiffness, no JVD or bruits. No Stridor. Chest: Clear to auscultation bilaterally. No wheezes or rhonchi. No increased work of breathing. Heart: Regular rate and rhythm without murmurs or gallops. Abdomen: Soft nontender, nondistended without rebound guarding or rigidity. Ostomy bag in the central abdomen with brown stool Extremities: No cyanosis clubbing or edema. No calf tenderness or assymetry Spine/Back. Non tender to palpation. No CVA tenderness Skin: Good turgor without rashes. Neurologic exam: Cranial nerves two through 12 are intact. Motor and sensation are intact and symmetrical throughout. He tells me that his vision is double and off in his left eye which is unchanged from his recent stroke Course Administered Medications Discontinued Medications Cefepime HCl 2,000 mg/ Syringe 20 mls @ 5 mls/min IV NOW STA; Protocol Stop: 10/22/23 14:29 Last Admin: 10/22/23 15:29 Dose: 5 mls/min Documented By: MYRTLE Medical Decision Making Differential Diagnosis CVA, TIA, intracranial hemorrhage, electrolyte or metabolic abnormality, arrhythmia, infection, metabolic or toxicologic Medical Records Attestation: I reviewed the patient's medical records. Home Medications Current Medication List: was personally reviewed by me Laboratory Data Attestation: I reviewed the patient's lab results. 10/22/23 12:29 10/22/23 12:29 Lab Results 10/22/23 10/22/23 10/22/23 Range/Units 11:23 12:29 12:52 WBC 9.06 (4.8-10.8) K/ul RBC 4.58 L (4.70-6.10) M/uL Hgb 12.0 L (14.0-18.0) g/dl Hct 39.2 L (42.0-52.0) % MCV 85.6 (80.0-100.0) fL MCH 26.2 (25.0-34.0) pg MCHC 30.6 L (32.0-36.0) g/dL RDW Std Deviation 47.7 H (36.4-46.3) fL RDW Coeff of Timoteo 15.2 H (11.5-14.5) % Plt Count 332 (130-400) K/uL MPV 10.0 (9.4-12.4) fL Immature Gran % (Auto) 0.6 % Neut % (Auto) 87.9 % Lymph % (Auto) 5.6 % Barry % (Auto) 4.6 % Eos % (Auto) 0.7 % Baso % (Auto) 0.6 % Neut # (Auto) 7.97 H (1.40-6.50) K/uL Lymph # (Auto) 0.51 L (1.20-3.40) K/uL Barry # (Auto) 0.42 (0.11-0.59) K/uL Eos # (Auto) 0.06 (0.00-0.50) K/uL Baso # (Auto) 0.05 (0.00-0.20) K/uL Immature Gran # (Auto) 0.05 (0.01-0.20) K/uL PT 12.4 H (9.0-12.0) Seconds INR 1.2 H (0.9-1.1) Sodium 141 (136-145) mmol/L Potassium 4.6 (3.5-5.1) mmol/L Chloride 106 (98-107) mmol/L Carbon Dioxide 24 (21-32) mmol/L Anion Gap 11 (3-11) BUN 52 H (6-23) mg/dl Creatinine 2.57 H (0.6-1.4) mg/dl Est Cr Clr Drug Dosing 21.9 ml/min Est GFR ( Amer) 25.7 ml/min Est GFR (Non-Af Amer) 22.1 ml/min BUN/Creatinine Ratio 20.2 H (10-20) Glucose 162 H (70-99(Fasting)) mg/dl POC Glucose 146 H (70-99) mg/dl Calcium 9.4 (8.6-10.3) mg/dl Magnesium 2.1 (1.7-2.4) mg/dl Total Bilirubin 0.5 (0.2-1.0) mg/dl AST 13 (13-39) U/L ALT 8 (7-52) U/L Alkaline Phosphatase 115 H (34-104) U/L Total Creatine Kinase 26 L (30-223) U/L Troponin I High Sens 15.3 (0-20) pg/ml Total Protein 8.2 (6.0-8.3) gm/dl Albumin 3.8 (3.4-5.0) gm/dl Globulin 4.4 H (2.5-4.0) gm/dl Albumin/Globulin Ratio 0.9 (0.9-2) TSH 1.318 (0.300-4.500) uIu/ml Urine Color Yellow Urine Appearance Turbid A (Clear) Urine pH 5.0 (4.5-7.5) Ur Specific [place] 1.015 (1.000-1.030) Urine Protein 3+ H (Negative) Urine Glucose (UA) Negative (Negative) Urine Ketones Trace H (Negative) Urine Blood 2+ H (Negative) Urine Nitrite Negative (Negative) Urine Bilirubin Negative (Negative) Urine Urobilinogen Negative (Negative) Ur Leukocyte Esterase 3+ H (Negative) Urine WBC (Auto) >50 H (0-5) /hpf Urine RBC (Auto) 11-20 H (0-2) /hpf U Hyaline Cast (Auto) 0-2 (0-2) /lpf U Epithel Cells (Auto) 6-10 H (0-2) /hpf Urine Bacteria (Auto) 1+ H (None Seen) Urine Yeast Present A (None Prsent) Imaging Data Attestation: I personally reviewed and interpreted this imaging study as follows: My Impression: Chest x-rayno acute infiltrate, failure, pneumothorax seen Radiologist's Impression: Chest X-Ray 10/22/23 10:29 XR chest 1V portable HISTORY: weakness COMPARISON: Chest 10/09/2023. FINDINGS: No pneumothorax. No pleural fusions. The heart remains enlarged. No focal lung consolidations to suggest a pneumonia. No evidence for pulmonary edema. There are old, healed right-sided rib fractures and an old left humeral fracture. IMPRESSION: Stable cardiomegaly. Otherwise, no acute process within the chest. ACT 112: Negative or not required by law. Electronically signed by: Tadeo Mcneill M.D. 10/22/2023 11:[address] 10/22/23 11:[address] DOSE: 625.8 mGy.cm HISTORY: episode of confusion, recent cva TECHNIQUE: Multiaxial CT images of the head were performed without the use of intravenous contrast. Automated exposure control was utilized for this study. A dose lowering technique was utilized adhering to the principles of ALARA. Comparison: Head CT 10/12/2023. Findings: The paranasal sinuses and mastoid air cells are clear. The calvarium and skull base are intact. There is no mass, midline shift, acute infarct. White matter hypodensity is nonspecific but suggestive of microvascular ischemic change. The ventricles and sulci demonstrate mild age-related involutional changes. Subtle hyperdensity within the cortex of the right parietal lobe. 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 Therefore, [address] follow-up recommended to ensure stability of this finding. This is best seen on axial image 21. Impression: 1. No acute infarct. 2. Subtle hyperdensity within the cortex of the right parietal lobe. 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 Therefore, [address] follow-up recommended to ensure stability of this finding. ACT 112: Negative or not required by law. Electronically signed by: Tadeo Mcneill M.D. 10/22/2023 12:14 PM ECG Data Attestation: I personally reviewed and interpreted this ECG as follows: Indication: + weakness Rate (beats per minute): 81 Rhythm: + atrial fibrillation ECG Intervals/blocks: + Normal QRS, + Normal QT and + Normal TX ECG [place]: + Normal ECG ST segments: + Normal ST segments and + T-wave inversions (Anterolateral) ECG Findings: no PACs or no PVCs Comparison ECG Date: from (10/09/23-no significant change) Change: no significant change MDM Narrative This patient comes in as scribed above he is a complex medical history and recent stroke. He is looking good at present he denies any fall or trauma or fever he was diffusely weak this morning when trying to get up and also had some confusion with his recent stroke I did order CAT scan of his head EKG and multiple blood testing reviewed his old records. He was reassessed frequently. He was placed on a library monitor room B6. His CAT scans shows no acute infarct. There is involutional changes the right parietal lobe related to his stroke. Most likely this is necrosis less likely of small foci of petechial hemorrhage. I talked to the patient about this at length it is well-documented from his previous admission that he did not want Renee for/treatment should he have a hemorrhagic conversion he agrees with this. His urinalysis does suggest UTI did order cultures and treated him with cefepime 2 g IV based on review of the previous culture. He has no significant electrolye or metabolic abnormalities. He did have an episode where he was confused but seems to be doing better at present I do think he needs to be admitted/observed for repeat CAT scan, neurologic monitoring and evaluation and monitoring of his urinary tract infection. I have discussed the case at length with , in consultation and the patient will be admitted/observed to the [facility] hospitalist. Continuous library monitor call orders placed in EMR for continuous cardiac monitoring. Upon my evaluation patient was noted to be in rate controlled A-fib at a rate of approximately 80 Impression & Plan Weakness, Recent cerebrovascular accident (CVA), Anticoagulant long-term use, Episode of confusion, Acute UTI (urinary tract infection) Discharge Plan Visit Data Chief Complaint: Neuro Symptoms/Deficit ED Provider: Gunnar Davis Discharge Problem: Weakness, Recent cerebrovascular accident (CVA), Anticoagulant long-term use, Episode of confusion, Acute UTI (urinary tract infection) Forms Stand Alone Forms: My [facility] [employer] 1 Prescriptions Prescriptions: No Action cholecalciferol (vitamin D3) [Vitamin D3] 25 mcg (1,000 unit) tablet 2,000 unit PO DAILY Qty: 180 0RF Rx Instructions: Unable to verify OTC meds at this date/time docusate sodium [Colace] 100 mg capsule 100 mg PO BID Rx Instructions: Unable to verify OTC meds at this date/time ferrous sulfate 325 mg (65 mg iron) Tablet 325 mg PO QAM Rx Instructions: Unable to verify OTC meds at this date/time rosuvastatin 10 mg tablet 10 mg PO HS cyanocobalamin (vitamin B-12) [Vitamin B-12] 1,000 mcg tablet 1,000 mcg PO DAILY Rx Instructions: Unable to verify OTC meds at this date/time trospium 60 mg capsule,extended release 24hr 60 mg PO DAILYBB Januvia 50 mg tablet 50 mg PO DAILY Eliquis 2.5 mg Tablet 2.5 mg PO BID Qty: 30 0RF Hold Instructions: Resume on 10/17/23. insulin glargine [Basaglar KwikPen U-100 Insulin] 100 unit/mL (3 mL) insulin pen 5 unit SUBCUT PM aspirin 81 mg Tablet,Delayed Release (Dr/Ec) 81 mg PO DAILY Qty: 30 0RF Hold Instructions: "on hold" Rx Instructions: Unable to verify OTC meds at this date/time amlodipine 2.5 mg tablet 2.5 mg PO DAILY omeprazole 20 mg capsule,delayed release(DR/EC) 20 mg PO DAILY Referrals Referrals: Bisi Rhodes [Primary Care Provider] -
--- NOTE | 2023-10-22 12:16 | CT Scan Report ---
HEAD CT NONCONTRAST CT DOSE: 625.8 mGy.cm HISTORY: episode of confusion, recent cva TECHNIQUE: Multiaxial CT images of the head were performed without the use of intravenous contrast. A utomated exposure control was utilized for this study. A dose lowering technique was utilized adheri ng to the principles of ALARA. Comparison: Head CT 10/12/2023. Findings: The paranasal sinuses and mastoid air cells are clear. The calvarium and skull base are int act. There is no mass, midline shift, acute infarct. White matter hypodensity is nonspecific but sugg estive of microvascular ischemic change. The ventricles and sulci demonstrate mild age-related involu tional changes. Subtle hyperdensity within the cortex of the right parietal lobe. This favors cortica l laminar necrosis from the prior infarct or less likely small foci of petechial hemorrhage. Therefor e, [address] follow-up recommended to ensure stability of this finding. This is best seen on ax ial image 21. Impression: 1. No acute infarct. 2. Subtle hyperdensity within the cortex of the right parietal lobe. This favors cortical laminar nec rosis from the prior infarct or less likely small foci of petechial hemorrhage. Therefore, [address] follow-up recommended to ensure stability of this finding. ACT 112: Negative or not required by law. Electronically signed by: Tadeo Mcneill M.D. 10/22/2023 12:14 PM
[2023-10-22 12:48] LABS: Basophils # (auto) 0.05 K/uL (0.00-0.20); Basophils % (auto) 0.6 %; Eosinophils # (auto) 0.06 K/uL (0.00-0.50); Eosinophils % (auto) 0.7 %; Hematocrit (blood only) 39.2 % (42.0-52.0); Immature Granulocytes # (auto) 0.05 K/uL (0.01-0.20); Immature Granulocytes % (auto) 0.6 %; Lymphocytes # (auto) 0.51 K/uL (1.20-3.40); Lymphocytes % (auto) 5.6 %; Mean Corpuscular Hemoglobin 26.2 pg (25.0-34.0); Mean Corpuscular Hgb Conc 30.6 g/dL (32.0-36.0); Mean Corpuscular Volume 85.6 fL (80.0-100.0); Monocytes # (auto) 0.42 K/uL (0.11-0.59); Monocytes % (auto) 4.6 %; Neutrophils # (auto) 7.97 K/uL (1.40-6.50); Neutrophils % (auto) 87.9 %; Platelet Count 332 K/uL (130-400); RDW Coefficient of Variation 15.2 % (11.5-14.5); RDW Standard Deviation 47.7 fL (36.4-46.3); Red Blood Count 4.58 M/uL (4.70-6.10); White Blood Count 9.06 K/ul (4.8-10.8)
[2023-10-22 13:07] LABS: Albumin Globulin Ratio 0.9 (0.9-2); Albumin Level 3.8 gm/dl (3.4-5.0); BUN Creatinine Ratio 20.2 (10-20); Bilirubin,Total 0.5 mg/dl (0.2-1.0); Calcium 9.4 mg/dl (8.6-10.3); Creatinine Clr Calc Pharmacy 21.9 ml/min; Est GFR (African American) 25.7 ml/min; Est GFR (Non-African American) 22.1 ml/min; Globulin 4.4 gm/dl (2.5-4.0); Magnesium 2.1 mg/dl (1.7-2.4); Potassium 4.6 mmol/L (3.5-5.1); Total Protein 8.2 gm/dl (6.0-8.3)
[2023-10-22 13:12] LABS: Troponin I High Sensitivity 15.3 pg/ml (0-20)
[2023-10-22 13:21] LABS: INR 1.2 (0.9-1.1); Prothrombin Time 12.4 Seconds (9.0-12.0); Thyroid Stimulating Hormone 1.318 uIu/ml (0.300-4.500)
[2023-10-22 14:11] LABS: Appearance Urine Turbid (Clear); Bacteria Urine Automated 1+ (None Seen); Bilirubin Urine Negative (Negative); Blood Urine 2+ (Negative); Cast Urine Automated 0-2 /lpf (0-2); Color Urine Yellow; Glucose Urine UA Negative (Negative); Ketones Urine Trace (Negative); Leukocyte Esterase Urine 3+ (Negative); Nitrite Urine Negative (Negative); Protein Urine 3+ (Negative); Specific Gravity Urine 1.015 (1.000-1.030); Urobilinogen Urine Negative (Negative); WBC Urine Automated >50 /hpf (0-5)
--- NOTE | 2023-10-22 14:37 | History & Physical Report ---
Date of Service October 22, 2023 Assessment & Plan (1) Failure to thrive in adult: Plan: -Admit to the PCU on tele and pulse oximetry -Currently stable and non-toxic appearing -Presented to the ED via EMS this am after family received phone calls and text messages concerning for AMS/confusion -Patient was found by EMS in his recliner, too weak to get up, with his ostomy bag off, covered in feces -Per EMS, friend/caregiver, and his Son/POA, the house was in disarray and there are serious concerns that the patient would be unable to safely care for himself at home -Patient recently suffered a large acute right temporoparietal CVA earlier this month, limiting his ability to safely care for himself -At this time the patient is willing to be admitted for treatment of his UTI, continued monitoring of his CT brain findings today, and PT/OT evaluations -It will be important to continue assessing if the patient has good insight into his medical conditions in order to determine if he has the capacity to make medical decisions himself -Fall/aspiration precautions, q4h neuro checks -PT/OT consults -HH/DMII diet -AM CBC, CMP, mag, PT/INR (2) Weakness: Plan: -Patient was too weak to get himself out of his recliner last night and was found in it this am -Likely a combination of his recent stroke, multiple chronic medical comorbidities, and UTI today -Continue treatment of his acute medical issues -PT/OT consults -Patient is likely going to have to be placed on discharge (3) Abnormal CT of brain: Plan: -Ct of the head/brain wo con today noted "Subtle hyperdensity within the cortex of the right parietal lobe. 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 or less likely small foci of petechial hemorrhage." -No focal neuro changes on exam today compared to last admission -Patient has always been adamant that he would not want to be transferred to a tertiary care center for intervention if he did have a brain hemorrhage (see last admission HPI for details) -At this time we will hold his Eliquis and Aspirin today -Will obtain MRI of the brain today for further evaluation -Q4h neuro checks -Will repeat his CT head/brain wo con in 24 hours for re-evaluation -If stable could likely resume Eliquis and Plavix (4) Urinary tract infection: Plan: -Patient appears to have a UTI today on UA, however, he has a chronic indwelling byrne catheter -Hx of Pseudomonas, klebsiella, and proteus UTI's in the past, all have been sensitive to cefepime -S/P one dose of Cefepime in the ED -Will have his byrne exchanged in the ED and will obtain new UA and urine culture -Will continue cefepime for now -Follow urine and blood cultures (5) Recent cerebrovascular accident (CVA): Plan: -See abnormal CT of the brain for details (6) (HFpEF) heart failure with preserved ejection fraction: Plan: -Currently euvolemic -Monitor volume status daily (7) Atrial fibrillation: Plan: -Currently in afib -Having to hold Eliquis today with CT head/brain findings -Has not required rate limiting medications (8) DM (diabetes mellitus), type 2: Plan: -Monitor BSG ACHS, goal is 110-160 -Continue home 5 units lantus HS -CF 50 and CR 15 ACHS -Adjust regimen as needed Plan The patient was discussed with Dr. Mora at the time of the admission History of Present Illness Chief Complaint: Confusion, failure to thrive Primary Care Provider: Bisi Springer is a 83 year old male with a PMH significant for recent admission from 10/08-10/11 for large acute right temporoparietal CVA, HFrEF (LVEF of 45-50% as of 10/02/23), atrial fibrillation (On eliquis), DMII, hx of rectal cancer S/P colostomy and chronic indwelling suprapubic catheter placement, and HTN who presented to the [facility] ED via EMS on 10/22/23 after his friend/caregiver found him at home, confused and unable to care for himself. The patient was reportedly confused and agitated on EMS arrival. On arrival to the ED her was noted to be hypertensive at 160/81 but otherwise stable. Labs were significant for a cr of 2.57 (baseline is near 2.1), and UA consistent with UTI. Chest xray was read as negative for acute findings. CT of the head/brain wo con was read as "1. No acute infarct. 2. Subtle hyperdensity within the cortex of the right parietal lobe. 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 Therefore, [address] follow-up recommended to ensure stability of this finding.". Prior to admission the patient was given a dose of cefepime. Prior to evaluating the patient I spoke to the patient's friend/caregiver who had been at the bedside and stopped me in the daniel. She handed me her phone as the patient's Son/POA (Ricardo Bhakta) had many concerns regarding his father's safety at home. Ricardo lives in [place] but had just been back in the area after his father's recent admission for CVA and stay at [facility]. The patient's son and patient's friend explained that the patient once again was found in his recliner, unable to get up. His ostomy bag had been off all night leaving his stoma exposed. He was covered in feces, confused, and agitated. The patient reportedly called his son at [phone], which is approximately [address] asking why his home health nurses had not yet arrived. They also showed me a group text chain the patient started in which he only sent messages with random letter. His son is currently working with the patient's PCP and a cost and sales record supervisor to get full decision making power as he and those close to the patient do not believe he is safe at home himself. At the time of the exam the patient was lying in no acute distress. He states that he could not get out of his recliner because he accidentally adjusted the wrong way and became stuck. I asked him what happened to his ostomy bag at home. He cannot remember what happened but acknowledged that it was off all night. He is frustrated as he would ideally like to be discharged home. However, I explained to him his hx of resistant UTI's requiring IV abx and the need to obtain repeat CT head tomorrow to ensure he has no new changes. He is willing to be admitted at this time for care and PT/OT evaluations. He states, "I have an upcoming appointment with Dr. Torres Tomorrow". I explained to him that this would be unlikely as tomorrow is Tuesday. He responded with , "well it must be on Tuesday then". He denies any discomfort or pain at this time. He also confirms that he is a DNR/DNI, his son is his POA, and he would not want to be transferred to a tertiary care center for intervention if he were to have a brain hemorrhage. At that time he would want to be transitioned to comfort measures if he was in critical condition. Please refer to Dr. Mora's attestation for any changes to the treatment plan Allergies Allergy/AdvReac Type Severity Reaction Status Date / Time atorvastatin [From Lipitor] Allergy Unknown Verified 10/22/23 14:37 Home Medications Medication Instructions Recorded Confirmed Type ferrous sulfate 325 mg (65 mg 325 mg PO QAM 02/24/18 10/22/23 History iron) tablet rosuvastatin 10 mg tablet 10 mg PO HS 02/24/18 10/22/23 History cyanocobalamin (vitamin B-12) 1,000 mcg PO DAILY 12/19/19 10/22/23 History 1,000 mcg tablet (Vitamin B-12) cholecalciferol (vitamin D3) 25 2,000 unit PO DAILY #180 tabs 04/25/20 10/22/23 Rx mcg (1,000 unit) tablet (Vitamin D3) trospium 60 mg capsule,extended 60 mg PO DAILYBB 04/18/23 10/22/23 History release 24 hr sitagliptin phosphate 50 mg tablet 50 mg PO DAILY 09/27/23 10/22/23 History (Januvia) apixaban 2.5 mg tablet (Eliquis) 2.5 mg PO BID #30 tabs 10/05/23 10/22/23 Rx aspirin 81 mg tablet,delayed 81 mg PO DAILY #30 tabs 10/12/23 10/22/23 Rx release docusate sodium 100 mg capsule 100 mg PO BID 10/13/23 10/22/23 History (Colace) insulin glargine 100 unit/mL (3 5 unit subcut PM 10/19/23 10/22/23 History mL) subcutaneous pen (Basaglar KwikPen U-100 Insulin) amlodipine 2.5 mg tablet 2.5 mg PO DAILY 10/22/23 10/22/23 History omeprazole 20 mg capsule,delayed 20 mg PO DAILY 10/22/23 10/22/23 History release Past Med/Surg History Problem List (Updated 10/22/23 @ 17:21 by Background Daemon) Acute UTI (urinary tract infection) (Acute) Abnormal CT of brain (HFpEF) heart failure with preserved ejection fraction Failure to thrive in adult Episode of confusion (Acute) Weakness (Acute) Anticoagulant long-term use (Acute) Recent cerebrovascular accident (CVA) (Acute) Elevated troponin High anion gap metabolic acidosis Heart failure with reduced ejection fraction Atrial fibrillation Acute CVA (cerebrovascular accident) (Acute) Leucocytosis (Acute) Non-ST elevation HI (NSTEMI) (Acute) Acute confusion (Acute) Generalized weakness (Acute) Chronic kidney disease, stage 4 (severe) Pericardial effusion Cardiomegaly (Acute) Edema of right lower extremity (Acute) Rib pain (Acute) New onset of congestive heart failure New onset atrial fibrillation (Acute) Fall (Acute) Food impaction of esophagus Esophageal abnormality (Acute) Acute UTI (urinary tract infection) (Acute) Vomiting (Acute) Acute kidney injury Skin lesion History of urinary retention Suprapubic catheter Benign prostatic hyperplasia with urinary obstruction and other lower urinary tract symptoms (Acute) DM (diabetes mellitus), type 2 (Acute) Hyperlipidemia (Acute) Hypertension (Acute) Urinary retention (Acute) Anemia Vitamin D deficiency Diabetes Diarrhea Obstructive uropathy (Chronic) Pre-syncope Rectal cancer (Chronic 06/17/17) "Rectal bleeding Status post colonoscopy and biopsy 06/17/2017 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 Plan for combined radiation and chemotherapy followed by possible resection Status post completion of combined radiation and chemotherapy August 30, 2017." On 07/07/17 13:09 Felicia Hannon wrote "Rectal bleeding Status post colonoscopy and biopsy 06/17/2017 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 Plan for combined radiation and chemotherapy followed by possible resection" Medical History Jewell UTI 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 Chronic kidney disease, stage III (moderate) Family History Other Family history non-contributory Social History Smoking Status: Never smoker Do You Dip or Chew Tobacco: No; Hx Alcohol Use: No Hx Substance Use: No Preferred Language: Iraqi Communication Ability: Effective Visual Impairment: No Limitations 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: Normal 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 Required: No Beliefs That Will Affect Care: None marital status: / Current Living Situation: Alone Current Living Situation Comment: home current occupational status: retired Other Information That Helps Us Care for You: No Feels Safe at Home: Yes Safety Concerns: Feels Safe At This Time Assistive Devices: Glasses and Walker Assistive Devices Comment: ostomy, suprapublic cath Physical Exam Physical Exam: Physical Exam: General: In no acute distress, stated age, chronically ill appearing but non- toxic HEENT: Normocephalic, atraumatic, no scleral icterus, pupils around round, symmetrical, and reactive to light, dry mucus membranes, trachea midline, no thyromegaly Chest/Pulm: No respiratory distress, symmetrical chest expansion, crackles noted in the BL lower lung ornelas, otherwise CTA Cardiac: irregular rate and rhythm, no murmurs noted Abdomen: Negative for ascites and bruising, colostomy bag located in the RLQ is intact and without signs of leaking, normoactive bowel sounds, soft, non-tender to palpation throughout : Supra pubic catheter is in place and is without signs of infection or purulent drainage from the insertion site, currently draining clear, yellow urine Musculoskeletal: Symmetrical and without signs of acute trauma, patient with decreased strength in the RUE compared to left with spasticity with active use, symmetrical strength in the BL Lower extremities Extremities: Radial, dorsalis pedis, and posterior tibial pulses are intact and symmetrical, no edema noted in the BL LE's Skin: Warm, dry, no rashes , lesions, or scars noted Neuro: Alert and oriented to person, place, year, and CN II-XII tested and intact, patient with positive pronator drift and cerebellar testing in the RUE, no tremors noted Psych: No acute distress, calm and cooperative during the exam Results & Data Results & Data Vital Signs (Past 12 Hours) Vital Signs Temp Pulse Pulse Resp BP BP Pulse Ox 10/22/23 14:04 80 24 160/81 H 100 10/22/23 13:06 84 10/22/23 12:00 78 17 93 10/22/23 12:00 16 10/22/23 12:00 10/22/23 10:23 37.2 C 89 16 168/102 H 100 O2 Del Method 10/22/23 14:04 Room Air 10/22/23 13:06 10/22/23 12:00 Room Air 10/22/23 12:00 Room Air 10/22/23 12:00 Room Air 10/22/23 10:23 Room Air Laboratory Results Abnormal lab results 10/22/23 10/22/23 10/22/23 Range/Units 11:23 12:29 12:52 RBC 4.58 L (4.70-6.10) M/uL Hgb 12.0 L (14.0-18.0) g/dl Hct 39.2 L (42.0-52.0) % MCHC 30.6 L (32.0-36.0) g/dL RDW Std Deviation 47.7 H (36.4-46.3) fL RDW Coeff of Timoteo 15.2 H (11.5-14.5) % Neut # (Auto) 7.97 H (1.40-6.50) K/uL Lymph # (Auto) 0.51 L (1.20-3.40) K/uL PT 12.4 H (9.0-12.0) Seconds INR 1.2 H (0.9-1.1) BUN 52 H (6-23) mg/dl Creatinine 2.57 H (0.6-1.4) mg/dl BUN/Creatinine Ratio 20.2 H (10-20) Glucose 162 H (70-99(Fasting)) mg/dl POC Glucose 146 H (70-99) mg/dl Alkaline Phosphatase 115 H (34-104) U/L Total Creatine Kinase 26 L (30-223) U/L Globulin 4.4 H (2.5-4.0) gm/dl Urine Appearance Turbid A (Clear) Urine Protein 3+ H (Negative) Urine Ketones Trace H (Negative) Urine Blood 2+ H (Negative) Ur Leukocyte Esterase 3+ H (Negative) Urine WBC (Auto) >50 H (0-5) /hpf Urine RBC (Auto) 11-20 H (0-2) /hpf U Epithel Cells (Auto) 6-10 H (0-2) /hpf Urine Bacteria (Auto) 1+ H (None Seen) Urine Yeast Present A (None Prsent) Diagnostic Findings Chest X-Ray 10/22/23 10:29 XR chest 1V portable HISTORY: weakness COMPARISON: Chest 10/09/2023. FINDINGS: No pneumothorax. No pleural fusions. The heart remains enlarged. No focal lung consolidations to suggest a pneumonia. No evidence for pulmonary edema. There are old, healed right-sided rib fractures and an old left humeral fracture. IMPRESSION: Stable cardiomegaly. Otherwise, no acute process within the chest. ACT 112: Negative or not required by law. Electronically signed by: Tadeo Mcneill M.D. 10/22/2023 11:[address] 10/22/23 11:[address] DOSE: 625.8 mGy.cm HISTORY: episode of confusion, recent cva TECHNIQUE: Multiaxial CT images of the head were performed without the use of intravenous contrast. Automated exposure control was utilized for this study. A dose lowering technique was utilized adhering to the principles of ALARA. Comparison: Head CT 10/12/2023. Findings: The paranasal sinuses and mastoid air cells are clear. The calvarium and skull base are intact. There is no mass, midline shift, acute infarct. White matter hypodensity is nonspecific but suggestive of microvascular ischemic change. The ventricles and sulci demonstrate mild age-related involutional changes. Subtle hyperdensity within the cortex of the right parietal lobe. 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 Therefore, [address] follow-up recommended to ensure stability of this finding. This is best seen on axial image 21. Impression: 1. No acute infarct. 2. Subtle hyperdensity within the cortex of the right parietal lobe. 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 Therefore, [address] follow-up recommended to ensure stability of this finding. ACT 112: Negative or not required by law. Electronically signed by: Tadeo Mcneill M.D. 10/22/2023 12:14 PM ECG Additional Comments: Atrial fibrillation T wave abnormality, consider anterolateral ischemia Prolonged QT Abnormal ECG When compared with ECG of 09-OCT-2023 14:02, No significant change was found Code Status & VTE Plan Code Status DNR/DNI VTE Prophylaxis Plan VTE Prophylaxis will be ordered: Yes Supervising Physician Co-Signing Physician Notes Patient was seen and examined , agree with above assessment and plan presented to ER with increased confusion, spilled stool from colostomy around his apartment denies fever, chills, no new necrological deficit, recent admission with CVA, on Eliquis recently discharged home from rehab started on IV antibiotics for UTI, follow up on urine culture, needs Byrne to be replaced and new UA to be analyzed suspect dementia probably needs placement or 24 hr care PG Care Time/CCT Total # of Minutes Spent Total Time Spent with Patient: Total time spent is greater than 50% in coordination of care (as documented) at patient's floor/unit and/or counseling patient: Coding [place] [address] INT INP/OBS CARE 3/75MIN Patient Type Established Medical Decision Making High Complexity Diagnoses Failure to thrive in adult R62.[address] of brain R90.89 Urinary tract infection N39.0 Recent cerebrovascular accident (CVA) Z86.73 (HFpEF) heart failure with preserved ejection fraction I50.30 Atrial fibrillation I48.91 DM (diabetes mellitus), type 2 E11.9
[2023-10-22] MEDS ORDERED: DEXTROSE 50% 50 ML SYRINGE IV PRN (15:19)
[2023-10-22] MEDS ORDERED: CARBOHYDRATES FOR HYPOGLYCEMIA PO PRN (15:19)
[2023-10-22] MEDS ORDERED: GLUCAGON FOR INJ 1 MG VIAL SQ PRN (15:19)
[2023-10-22] MEDS ORDERED: GLUCOSE 10 TAB/TUBE PO PRN (15:19)
[2023-10-22] MEDS ORDERED: GLUCOSE 40% GEL 15 GM TUBE PO PRN (15:19)
[2023-10-22] MEDS: CEFEPIME 2,000 MG in SYRINGE 0 ML IV STA (15:29)
[2023-10-22] MEDS: INSULIN ASPART PER UNIT CHARGE SC SCH (17:53)
--- NOTE | 2023-10-22 19:00 | Magnetic Resonance Report ---
Brain MRI WITHOUT CONTRAST HISTORY: Abnormal head CT. Hemorrhage vs necrosis on CT head today TECHNIQUE: Multiplanar multisequence MRI of the brain was performed without the use of contrast. COMPARISON STUDY: Head CT 10/22/2023. Brain MRI 10/09/2023. FINDINGS: Evolving subacute to chronic right cerebral infarcts again noted most pronounced within the right parietal lobe. These areas demonstrate mild cytotoxic edema. No evidence for intracranial hemo rrhage no evidence for cortical laminar necrosis at this time. There is normal lacunar infarct within the central niyah. The remaining midline structures are intact. Mild atrophy and mild microvascular i schemic changes are again noted. No new areas restricted diffusion to suggest an acute infarction. Th e major vascular flow-voids at the skull base are maintained. The paranasal sinuses and mastoid air c ells are clear. Prior bilateral lens replacement. IMPRESSION: 1. No acute infarct or acute intracranial hemorrhage. 2. Continued follow-up [address] recommended to ensure stability of the questioned right pariet al lobe abnormality on the prior head CT. 3. Evolving subacute to chronic right cerebral infarcts again noted. ACT 112: Negative or not required by law. Electronically signed by: Tadeo Mcneill M.D. 10/22/2023 6:58 PM
[2023-10-22] MEDS: ROSUVASTATIN CALCIUM 10 MG TAB PO SCH (21:04)
[2023-10-22] MEDS: DOCUSATE SODIUM 100 MG CAP PO SCH (21:04)
[2023-10-22] MEDS: LANTUS PER UNIT CHARGE SQ SCH (21:04)
[2023-10-22 22:25] LABS: Appearance Urine Turbid (Clear); Bacteria Urine Automated None Seen (None Seen); Bilirubin Urine Negative (Negative); Blood Urine 1+ (Negative); Color Urine Yellow; Epithelial Cell Urine Auto 0-2 /hpf (0-2); Glucose Urine UA Negative (Negative); Ketones Urine Negative (Negative); Leukocyte Esterase Urine 3+ (Negative); Nitrite Urine Negative (Negative); Protein Urine 3+ (Negative); RBC Urine Automated >20 /hpf (0-2); Specific Gravity Urine 1.013 (1.000-1.030); Urobilinogen Urine Negative (Negative); WBC Urine Automated >50 /hpf (0-5); pH Urine 5.5 (4.5-7.5)
[2023-10-23] MEDS: LABETALOL HCL IV 5 MG/ML 20ML IV PRN (05:18)
[2023-10-23] MEDS: amLODIPine BESYLATE 5 MG TAB PO SCH (08:37)
[2023-10-23] MEDS: FERROUS SULFATE 325 MG TAB PO SCH (08:38)
[2023-10-23] MEDS: OXYBUTYNIN CHLORIDE XL 5 MG TABCR PO SCH (08:38)
[2023-10-23] MEDS: PANTOprazole 40 MG TAB PO SCH (08:39)
[2023-10-23 09:51] LABS: Basophils # (auto) 0.05 K/uL (0.00-0.20); Basophils % (auto) 0.6 %; Eosinophils # (auto) 0.12 K/uL (0.00-0.50); Eosinophils % (auto) 1.4 %; Hematocrit (blood only) 38.4 % (42.0-52.0); Hemoglobin 11.9 g/dl (14.0-18.0); Immature Granulocytes # (auto) 0.04 K/uL (0.01-0.20); Immature Granulocytes % (auto) 0.5 %; Lymphocytes # (auto) 0.58 K/uL (1.20-3.40); Lymphocytes % (auto) 6.8 %; Mean Corpuscular Hemoglobin 26.3 pg (25.0-34.0); Mean Corpuscular Volume 84.8 fL (80.0-100.0); Monocytes # (auto) 0.43 K/uL (0.11-0.59); Neutrophils # (auto) 7.35 K/uL (1.40-6.50); Neutrophils % (auto) 85.7 %; Platelet Count 313 K/uL (130-400); RDW Coefficient of Variation 15.2 % (11.5-14.5); RDW Standard Deviation 46.5 fL (36.4-46.3); Red Blood Count 4.53 M/uL (4.70-6.10); White Blood Count 8.57 K/ul (4.8-10.8)
[2023-10-23 10:13] LABS: Albumin Globulin Ratio 0.9 (0.9-2); Albumin Level 3.4 gm/dl (3.4-5.0); BUN Creatinine Ratio 22.5 (10-20); Bilirubin,Total 0.5 mg/dl (0.2-1.0); C Reactive Protein 8.63 mg/dl (0-0.5); Calcium 8.8 mg/dl (8.6-10.3); Creatinine Clr Calc Pharmacy 25.5 ml/min; Est GFR (African American) 29.8 ml/min; Est GFR (Non-African American) 25.7 ml/min; Globulin 3.8 gm/dl (2.5-4.0); Potassium 5.3 mmol/L (3.5-5.1); Total Protein 7.2 gm/dl (6.0-8.3)
[2023-10-23 10:28] LABS: INR 1.2 (0.9-1.1); Prothrombin Time 12.4 Seconds (9.0-12.0)
--- NOTE | 2023-10-23 14:06 | CT Scan Report ---
CT head/brain wo con CLINICAL HISTORY: Follow-up on CT head results from 10/21 Technique: Contiguous axial CT images of the head were acquired from the base of the skull to the jaron rosi without intravenous contrast administration. Images were viewed in brain, subdural and bone windo ws. Automated dose lowering techniques and/or adjustment according to patient size were utilized for this exam. Comparison: Comparison is made to CT head 10/22/2023 Findings: Redemonstration of gyriform hyperdensity in the cortex of the right parietal lobe. No evidence of int racranial hemorrhage. Imaged portions of the paranasal sinuses and mastoid air cells are clear. The orbits appear normal. There are no acute fractures of the calvaria or scalp swelling. Impression: Interval stability of gyriform hyperdensity in the right parietal lobe compatible with cortical roxy ar necrosis from recent infarct. No evidence of intraparenchymal hemorrhage is seen. ACT 112: Negative or not required by law. Electronically signed by: Hector Weinstein M.D. 10/23/2023 2:04 PM
[2023-10-23] MEDS: CEFEPIME 1,000 MG in SYRINGE 0 ML IV SCH (15:18)
--- NOTE | 2023-10-23 20:57 | Hospitalist Progress Note ---
Date of Service October 23, 2023 Assessment & Plan (1) Failure to thrive in adult: Plan: -Admit to the PCU on tele and pulse oximetry -Currently stable and non-toxic appearing -Presented to the ED via EMS this am after family received phone calls and text messages concerning for AMS/confusion -Patient was found by EMS in his recliner, too weak to get up, with his ostomy bag off, covered in feces -Per EMS, friend/caregiver, and his Son/POA, the house was in disarray and there are serious concerns that the patient would be unable to safely care for himself at home -Patient recently suffered a large acute right temporoparietal CVA earlier this month, limiting his ability to safely care for himself -At this time the patient is willing to be admitted for treatment of his UTI, continued monitoring of his CT brain findings today, and PT/OT evaluations -It will be important to continue assessing if the patient has good insight into his medical conditions in order to determine if he has the capacity to make medical decisions himself -Fall/aspiration precautions, q4h neuro checks -PT/OT consults -HH/DMII diet -AM CBC, CMP, mag, PT/INR On 10/22 At this moment, it is clear patient is having difficulty managing himself at home. Given the above history of not managing his ostomy bag, it is likely his suprapubic catheter has been compromised. will consult urology to exchange suprapubic catheter. will also consult psych to help with determination of medical capacity. (2) Weakness: Plan: -Patient was too weak to get himself out of his recliner last night and was fou nd in it this am -Likely a combination of his recent stroke, multiple chronic medical comorbidities, and UTI today -Continue treatment of his acute medical issues -PT/OT consults -Patient is likely going to have to be placed on discharge (3) Abnormal CT of brain: Plan: -Ct of the head/brain wo con today noted "Subtle hyperdensity within the cortex of the right parietal lobe. 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 or less likely small foci of petechial hemorrhage." -No focal neuro changes on exam today compared to last admission -Patient has always been adamant that he would not want to be transferred to a tertiary care center for intervention if he did have a brain hemorrhage (see last admission HPI for details) -At this time we will hold his Eliquis and Aspirin today -Will obtain MRI of the brain today for further evaluation -Q4h neuro checks -Will repeat his CT head/brain wo con in 24 hours for re-evaluation -If stable could likely resume Eliquis and Plavix (4) Urinary tract infection: Plan: -Patient appears to have a UTI today on UA, however, he has a chronic indwelling byrne catheter -Hx of Pseudomonas, klebsiella, and proteus UTI's in the past, all have been sensitive to cefepime -S/P one dose of Cefepime in the ED -Will have his byrne exchanged in the ED and will obtain new UA and urine culture -Will continue cefepime for now -Follow urine and blood cultures (5) Recent cerebrovascular accident (CVA): Plan: -See abnormal CT of the brain for details (6) (HFpEF) heart failure with preserved ejection fraction: Plan: -Currently euvolemic -Monitor volume status daily (7) Atrial fibrillation: Plan: -Currently in afib -Having to hold Eliquis today with CT head/brain findings -Has not required rate limiting medications (8) DM (diabetes mellitus), type 2: Plan: -Monitor BSG ACHS, goal is 110-160 -Continue home 5 units lantus HS -CF 50 and CR 15 ACHS -Adjust regimen as needed Admission and Anticipated Discharge Date Admission Date: October 22, 2023 Subjective Patient is refusing lab draws today as he hate beeing pricked by needles. Patient later agreed. Review of Systems Review of Systems: All systems reviewed & are unremarkable except as noted in HPI & below Physical Exam Physical Exam: HEENT: Normocephalic, atraumatic, no scleral icterus, pupils around round, symmetrical, and reactive to light, dry mucus membranes, trachea midline, no thyromegaly Chest/Pulm: No respiratory distress, symmetrical chest expansion, CTA Cardiac: irregular rate and rhythm, no murmurs noted Abdomen: Negative for ascites and bruising, colostomy bag located in the RLQ is intact and without signs of leaking, normoactive bowel sounds, soft, non-tender to palpation throughout : Supra pubic catheter is in place and is without signs of infection or purulent drainage from the insertion site, currently draining clear, yellow urine Extremities: Radial, dorsalis pedis, and posterior tibial pulses are intact and symmetrical, no edema noted in the BL LE's Psych: No acute distress, calm and cooperative during the exam Results & Data Results & Data Vital Signs (Past 12 Hours) Vital Signs Temp Pulse Resp BP Pulse Ox O2 Del Method 10/23/23 19:32 36.8 C 50 L 18 127/65 99 Room Air 10/23/23 12:26 36.8 C 74 18 136/81 100 Room Air PG Care Time/CCT Total # of Minutes Spent Total Time Spent with Patient: Total time spent is greater than 50% in coordination of care (as documented) at patient's floor/unit and/or counseling patient: Coding Level of Care Code 03537 SUB INP/OBS CARE 3/50MIN Diagnoses Failure to thrive in adult R62.[address] of brain R90.89 Urinary tract infection N39.0 Recent cerebrovascular accident (CVA) Z86.73 (HFpEF) heart failure with preserved ejection fraction I50.30 Atrial fibrillation I48.91 DM (diabetes mellitus), type 2 E11.9
[2023-10-23] MEDS: ACETAMINOPHEN 325 MG TAB PO PRN (21:31)
[2023-10-23] MEDS: PROCHLORPERAZINE 5 MG in SYRINGE 4 ML IV ONE (22:15)
--- NOTE | 2023-10-24 06:10 | Electrocardiogram Report ---
Test Reason : Blood Pressure : / mmHG Vent. Rate : 081 BPM Atrial Rate : 000 BPM P-R Int : 000 ms QRS Dur : 106 ms QT Int : 462 ms P-R-T Axes : 000 -10 002 degrees QTc Int : 536 ms Atrial fibrillation T wave abnormality, consider anterior ischemia Prolonged QT Abnormal ECG When compared with ECG of 09-OCT-2023 14:02, No significant change was found Confirmed by Jasbir Clifford ([id number]) on 10/24/2023 6:09:50 AM Referred By: REFERRED SELF Confirmed By:Jasbir Clifford
--- NOTE | 2023-10-24 12:59 | Urology Consultation ---
Date of Consultation October 24, 2023 Assessment & Plan (1) Suprapubic catheter: 83 yo/M with chronic indwelling suprapubic catheter and recent CVA admitted for weakness, failure to thrive and suspected UTI. Urology is consulted for SP catheter exchange, concern for contamination Patient is afebrile and hemodynamically stable Labs todaycreatinine 2.27, WBC 8.44, hemoglobin 10.8 Urine culture prelim Jewell albicans, suspect this is likely colonization Currently on IV cefepimefollow-up culture Suprapubic catheter was exchanged by urology on 10/02 SP tube is patent and draining appropriately Discussed exchanging suprapubic catheter with patient today, he prefers to keep exchange as scheduled next week with urology office Recommend continue with routine catheter care Continue supportive care and medical management per hospital medicine Continue with outpatient suprapubic exchange as scheduled on 11/01, can do sooner if there are issues will sign off, please contact us with any additional questions or concerns History of Present Illness Attending Physician: Maximo Weller History of Present Illness 83 year old male with a PMHx including rectal CA s/p chemotherapy/radiation and abdominoperineal resection 2018 complicated by injury to the urethra requiring suprapubic bladder catheter placement and 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 Patient had recent admission for CVA and then stay at [facility]. Patient was found at home and was unable to get up out of his recliner, ostomy bag was off and patient was covered in feces and confused. He was afebrile, hypertensive on arrival. Lab work showed creatinine 2.57, WBC 9.06, hemoglobin 12.0. Work-up in ED included Head CT showing no acute infarct, subtle hyper density within the cortex of the right parietal lobe favoring cortical laminar necrosis from the prior infarct. Urinalysis on arrival showed 2+ blood, 3+ LE, >50 WBC, 11-20 RBC, 6-10 epithelials and 1+ bacteria, urine yeast present. He was treated with IV cefepime in ED. Urology is consulted for evaluation suprapubic catheter. SP catheter was last exchanged by urology on 10/02. Labs todaycreatinine 2.27, WBC 8.57, hemoglobin 11.9. Urine culture showing Jewell albicans/dubliniensis. Currently on Cefepime. Patient seen and examined at bedside. He is awake and resting in bed. Marks patent and draining appropriately with yellow urine with some sediment. He denies any issues with suprapubic catheter at this time. He denies suprapubic pain. Reports occasional chills, no fevers. Allergies Allergy/AdvReac Type Severity Reaction Status Date / Time atorvastatin [From Lipitor] Allergy Unknown Verified 10/22/23 14:37 Home Medications Medication Instructions Recorded Confirmed Type ferrous sulfate 325 mg (65 mg 325 mg PO QAM 02/24/18 10/22/23 History iron) tablet rosuvastatin 10 mg tablet 10 mg PO HS 02/24/18 10/22/23 History cyanocobalamin (vitamin B-12) 1,000 mcg PO DAILY 12/19/19 10/22/23 History 1,000 mcg tablet (Vitamin B-12) cholecalciferol (vitamin D3) 25 2,000 unit PO DAILY #180 tabs 04/25/20 10/22/23 Rx mcg (1,000 unit) tablet (Vitamin D3) trospium 60 mg capsule,extended 60 mg PO DAILYBB 04/18/23 10/22/23 History release 24 hr sitagliptin phosphate 50 mg tablet 50 mg PO DAILY 09/27/23 10/22/23 History (Januvia) apixaban 2.5 mg tablet (Eliquis) 2.5 mg PO BID #30 tabs 10/05/23 10/22/23 Rx aspirin 81 mg tablet,delayed 81 mg PO DAILY #30 tabs 10/12/23 10/22/23 Rx release docusate sodium 100 mg capsule 100 mg PO BID 10/13/23 10/22/23 History (Colace) insulin glargine 100 unit/mL (3 5 unit subcut PM 10/19/23 10/22/23 History mL) subcutaneous pen (Basaglar KwikPen U-100 Insulin) amlodipine 2.5 mg tablet 2.5 mg PO DAILY 10/22/23 10/22/23 History omeprazole 20 mg capsule,delayed 20 mg PO DAILY 10/22/23 10/22/23 History release Patient History Medical History Jewell UTI 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 Chronic kidney disease, stage III (moderate) Family History Other Family history non-contributory Social History Smoking Status: Never smoker Do You Dip or Chew Tobacco: No; Hx Alcohol Use: No Hx Substance Use: No Preferred Language: Cameroonian Communication Ability: Effective Visual Impairment: No Limitations 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: Normal 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 Required: No Beliefs That Will Affect Care: None marital status: / Current Living Situation: Alone Current Living Situation Comment: home current occupational status: retired Other Information That Helps Us Care for You: No Feels Safe at Home: Yes Safety Concerns: Feels Safe At This Time Assistive Devices: Glasses and Walker Assistive Devices Comment: ostomy, suprapublic cath Review of Systems Review of Systems: All systems reviewed & are unremarkable except as noted in HPI & below Physical Exam Constitutional: no acute distress Respiratory: normal respiratory effort; no respiratory distress and no labored breathing Gastrointestinal (Abdomen): Inspection/Auscultation: abdomen normal to inspection ostomy intact Musculoskeletal: Head/Neck/Chest: normocephalic Neurologic: moves all extremities and awake Psychiatric: Orientation: alert and oriented x 3 Genitourinary: Suprapubic catheter patent and draining yellow urine with some sediment/debris noted Results & Data Vital Signs (Past 12 Hours) Vital Signs Temp Pulse Pulse Resp BP Pulse Ox O2 Del Method 10/24/23 11:00 36.6 C 65 18 118/64 99 Room Air 10/24/23 08:00 36.8 C 70 20 114/59 L 97 Room Air 10/24/23 07:11 Room Air 10/24/23 07:11 78 10/24/23 02:09 36.5 C 69 18 102/65 99 Room Air PG Care Time/CCT Total # of Minutes Spent Total Time Spent with Patient: Total time spent is greater than 50% in coordination of care (as documented) at patient's floor/unit and/or counseling patient: Coding Level of Care Code 57503 INT INP/OBS CARE 2/55MIN Diagnoses Suprapubic catheter Z93.59
[2023-10-24 13:13] LABS: Basophils # (auto) 0.04 K/uL (0.00-0.20); Basophils % (auto) 0.5 %; Eosinophils # (auto) 0.13 K/uL (0.00-0.50); Eosinophils % (auto) 1.5 %; Hematocrit (blood only) 35.1 % (42.0-52.0); Hemoglobin 10.8 g/dl (14.0-18.0); Immature Granulocytes # (auto) 0.05 K/uL (0.01-0.20); Immature Granulocytes % (auto) 0.6 %; Lymphocytes # (auto) 0.47 K/uL (1.20-3.40); Lymphocytes % (auto) 5.6 %; Mean Corpuscular Hemoglobin 26.2 pg (25.0-34.0); Mean Corpuscular Hgb Conc 30.8 g/dL (32.0-36.0); Mean Platelet Volume 9.9 fL (9.4-12.4); Monocytes # (auto) 0.62 K/uL (0.11-0.59); Monocytes % (auto) 7.3 %; Neutrophils # (auto) 7.13 K/uL (1.40-6.50); Neutrophils % (auto) 84.5 %; Platelet Count 294 K/uL (130-400); RDW Coefficient of Variation 15.4 % (11.5-14.5); Red Blood Count 4.13 M/uL (4.70-6.10); White Blood Count 8.44 K/ul (4.8-10.8)
[2023-10-24 13:35] LABS: Albumin Globulin Ratio 0.9 (0.9-2); Albumin Level 3.5 gm/dl (3.4-5.0); BUN Creatinine Ratio 17.6 (10-20); Bilirubin,Total 0.6 mg/dl (0.2-1.0); Calcium 9.1 mg/dl (8.6-10.3); Creatinine Clr Calc Pharmacy 22.1 ml/min; Est GFR (Non-African American) 20.7 ml/min; Globulin 3.9 gm/dl (2.5-4.0); Magnesium 2.1 mg/dl (1.7-2.4); Total Protein 7.4 gm/dl (6.0-8.3)
[2023-10-24 13:57] LABS: INR 1.2 (0.9-1.1); Prothrombin Time 12.8 Seconds (9.0-12.0)
--- NOTE | 2023-10-24 14:51 | Psychiatric Consultation ---
Date of Consultation October 24, 2023 Impression / Recommendations Impression At this current time it appears the patient can communicate his choice. He appears oriented to himself the location the date and the situation. At the time of interview there does not appear to be an impairment of consciousness, disruption in short-term memory, or ambivalence to the situation. He is able to present his current medical condition, the treatment that is being recommended, the benefits of accepting treatment, and the consequences of denying recommended treatment. The patient is able to assign personal value to the risks and benefits of the intervention. He presents an ability to manipulate the information rationally and logically. His decision was consistent throughout the course of the interview. No suspicion of current depression, pratibha, hypomania, or psychosis. (1) Failure to thrive in adult: (2) Recent cerebrovascular accident (CVA): (3) Acute UTI (urinary tract infection): (4) Suprapubic catheter: (5) New onset of congestive heart failure: (6) Chronic kidney disease, stage III (moderate): Plan At this time we believe Mr. Bhakta has decision making capacity to defer rehab placement and return home with home health care assistance after completion of hospital treatment. Overall, I spent a total of 35 minutes with this case including review of chart records, nursing report, review of lab work, direct evaluation of the patient at bedside, counseling the patient, and documentation in the electronic health record. Psych History Identifying Data Mr. Gian Bhakta is a 83-year-old male who presents after a fall at home due to weakness and concerns for altered mental status. History of recent strokes, A- fib, UTI currently being treated, ostomy bag. Patient was discharged from rehab on 10/17 and was found on 10/21 by home health care worker after he fell in his recliner and was unable to get up. Son is POA. Chart review indicates he requir es assistance with most ADLS. Psychiatry consulted for decision making capacity for patient to go home rather than rehab once treatment is completed. Chief Complaint Decision Making Capacity History of Present Illness The patient presents a bright and reactive affect. He is alert and oriented to himself, the city, the hospital, the year, the month. He reports having a fall at home and then going to [facility]. After returning home from rehab he reports slipping off his recliner and was unable to get up and his home health aide found him and sought help. He reports being treated for past stroke UTI and fluid accumulation. He reports benefits of improvement in his weakness if he attends rehab. He reports risks of fall and stroke and potential loss of life if he returns home. He prefers to continue home health care at home and receive assistance. He maintains this decision throughout the course of the interview. He assigns value of independence as his reason for accepting the risks of going home. He is able to manipulate this information and present his choice clearly. Past Psychiatric History Previous Psych History: none reported Previous Psych Admissions: none reported Allergies Allergy/AdvReac Type Severity Reaction Status Date / Time atorvastatin [From Lipitor] Allergy Unknown Verified 10/22/23 14:37 Home Medications Medication Instructions Recorded Confirmed Type ferrous sulfate 325 mg (65 mg 325 mg PO QAM 02/24/18 10/22/23 History iron) tablet rosuvastatin 10 mg tablet 10 mg PO HS 02/24/18 10/22/23 History cyanocobalamin (vitamin B-12) 1,000 mcg PO DAILY 12/19/19 10/22/23 History 1,000 mcg tablet (Vitamin B-12) cholecalciferol (vitamin D3) 25 2,000 unit PO DAILY #180 tabs 04/25/20 10/22/23 Rx mcg (1,000 unit) tablet (Vitamin D3) trospium 60 mg capsule,extended 60 mg PO DAILYBB 04/18/23 10/22/23 History release 24 hr sitagliptin phosphate 50 mg tablet 50 mg PO DAILY 09/27/23 10/22/23 History (Januvia) apixaban 2.5 mg tablet (Eliquis) 2.5 mg PO BID #30 tabs 10/05/23 10/22/23 Rx aspirin 81 mg tablet,delayed 81 mg PO DAILY #30 tabs 10/12/23 10/22/23 Rx release docusate sodium 100 mg capsule 100 mg PO BID 10/13/23 10/22/23 History (Colace) insulin glargine 100 unit/mL (3 5 unit subcut PM 10/19/23 10/22/23 History mL) subcutaneous pen (Basaglar KwikPen U-100 Insulin) amlodipine 2.5 mg tablet 2.5 mg PO DAILY 10/22/23 10/22/23 History omeprazole 20 mg capsule,delayed 20 mg PO DAILY 10/22/23 10/22/23 History release Patient History Medical History Jewell UTI 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 Chronic kidney disease, stage III (moderate) Family History Other Family history non-contributory Social History Smoking Status: Never smoker Do You Dip or Chew Tobacco: No; Hx Alcohol Use: No Hx Substance Use: No Preferred Language: Bulgarian Communication Ability: Effective Visual Impairment: No Limitations 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: Normal Practice Or Student Teacher Required: No Beliefs That Will Affect Care: None marital status: / Current Living Situation: Alone Current Living Situation Comment: home current occupational status: retired Other Information That Helps Us Care for You: No Feels Safe at Home: Yes Safety Concerns: Feels Safe At This Time Assistive Devices: Glasses and Walker Assistive Devices Comment: ostomy, suprapublic cath Physical Exam Mental Examination: Laying in bed Appearance: Disheveled (nichols) Eye Contact: Maintains Eye Contact Motor Behavior: Unremarkable Speech: Normal Mood: Euthymic and Calm Affect: Appropriate and Congruent Thought Process: Intact and Logical Thought Content: Intact Hallucinations: None Insight: Fair Judgement: Fair Vital Signs (Past 24 Hours): Last Vital Signs Temp 36.6 C 10/24/23 11:00 Pulse 65 10/24/23 11:00 Resp 18 10/24/23 11:00 BP 118/64 10/24/23 11:00 Pulse Ox 99 10/24/23 11:00 O2 Del Method Room Air 10/24/23 11:00 Results & Data (PSY) Medications Administered Acetaminophen (Acetaminophen 325 Mg Tab) 650 mg PO Q6H PRN PRN Reason: pain(1-4),headache,fever Stop: 11/21/23 15:33 Last Admin: 10/23/23 21:31 Dose: 650 mg Documented By: MIKEY Amlodipine Besylate (Amlodipine Besylate 5 Mg Tab) 2.5 mg PO DAILY MARIANA Stop: 11/22/23 08:59 Last Admin: 10/24/23 08:46 Dose: 2.5 mg Documented By: Admin: 10/23/23 08:37 Dose: 2.5 mg Documented By: LUCA Docusate Sodium (Docusate Sodium 100 Mg Cap) 100 mg PO BID [facility] Stop: 11/21/23 20:59 Last Admin: 10/24/23 08:46 Dose: 100 mg Documented By: Admin: 10/23/23 21:34 Dose: Not Given Documented By: Admin: 10/23/23 08:38 Dose: 100 mg Documented By: Admin: 10/22/23 21:04 Dose: 100 mg Documented By: MIKEY Ferrous Sulfate (Ferrous Sulfate 325 Mg Tab) 325 mg PO QAM [facility] Stop: 11/22/23 08:59 Last Admin: 10/24/23 08:46 Dose: 325 mg Documented By: Admin: 10/23/23 08:38 Dose: 325 mg Documented By: LUCA Cefepime HCl 1,000 mg/ Syringe 10 mls @ 5 mls/min IV Q24H [facility]; Protocol Stop: 11/02/23 14:59 Last Admin: 10/23/23 15:18 Dose: 5 mls/min Documented By: LUCA Insulin Aspart (Insulin Aspart Per Unit Charge) 0 units SC ACHS [facility] Stop: 11/21/23 16:29 Last Admin: 10/24/23 12:41 Dose: 4 units Documented By: Co-signed By: VIRGINIA Admin: 10/24/23 08:46 Dose: Not Given Documented By: Admin: 10/23/23 21:26 Dose: 1 units Documented By: MIKEY Co-signed By: ERICK Admin: 10/23/23 17:29 Dose: Not Given Documented By: Admin: 10/23/23 12:41 Dose: Not Given Documented By: Admin: 10/23/23 08:37 Dose: Not Given Documented By: Admin: 10/22/23 20:48 Dose: Not Given Documented By: Admin: 10/22/23 17:53 Dose: Not Given Documented By: LUCA Insulin Glargine (Lantus Per Unit Charge) 5 units SQ HS [facility]IANA Stop: 11/21/23 20:59 Last Admin: 10/23/23 21:26 Dose: 5 units Documented By: MIKEY Co-signed By: DAMON Admin: 10/22/23 21:04 Dose: 5 units Documented By: MMG Co-signed By: ERICK Labetalol HCl (Labetalol Hcl Iv 5 Mg/Ml 20ml) 10 mg IV Q4H PRN PRN Reason: HTN(systolic BP >140mmhg) Stop: 11/21/23 15:32 Last Admin: 10/23/23 05:18 Dose: 10 mg Documented By: MMG Co-signed By: DUARTE Oxybutynin Chloride (Oxybutynin Chloride Xl 5 Mg Tabcr) 5 mg PO DAILY [facility]IANA; Protocol Stop: 11/22/23 08:59 Last Admin: 10/24/23 08:46 Dose: 5 mg Documented By: Admin: 10/23/23 08:38 Dose: 5 mg Documented By: LUCA Pantoprazole Sodium (Pantoprazole 40 Mg Tab) 40 mg PO DAILY [facility]; Protocol Stop: 11/22/23 08:59 Last Admin: 10/24/23 08:46 Dose: 40 mg Documented By: Admin: 10/23/23 08:39 Dose: 40 mg Documented By: LUCA Rosuvastatin Calcium (Rosuvastatin Calcium 10 Mg Tab) 10 mg PO HS MARIANA Stop: 11/21/23 20:59 Last Admin: 10/23/23 21:27 Dose: 10 mg Documented By: Admin: 10/22/23 21:04 Dose: 10 mg Documented By: MMG Coding [place] [address] IN/OBS CONSULT LVL 5,80M Patient Type Established History Expanded Problem Focused Exam Expanded Problem Focused Medical Decision Making Moderate Complexity Diagnoses Failure to thrive in adult R62.7 Recent cerebrovascular accident (CVA) Z86.73 Acute UTI (urinary tract infection) N39.0 Suprapubic catheter Z93.59 New onset of congestive heart failure I50.9 Chronic kidney disease, stage III (moderate) N18.3 Time Spent (min) 35
[2023-10-24] MEDS: BUTT PASTE (ZINC OXIDE 16%) 171 APPLN/57 GM JAR EXT PRN (21:26)
--- NOTE | 2023-10-24 21:33 | Hospitalist Progress Note ---
Date of Service October 24, 2023 Assessment & Plan (1) Failure to thrive in adult: Plan: -Admit to the PCU on tele and pulse oximetry -Currently stable and non-toxic appearing -Presented to the ED via EMS this am after family received phone calls and text messages concerning for AMS/confusion -Patient was found by EMS in his recliner, too weak to get up, with his ostomy bag off, covered in feces. -Patient however denies being covered in feces -Per EMS, friend/caregiver, and his Son/POA, the house was in disarray and there are serious concerns that the patient would be unable to safely care for himself at home -Patient recently suffered a large acute right temporoparietal CVA earlier this month, limiting his ability to safely care for himself. -Consulted psych to evaluate for medical capacity. -Patient is able to make medical decisions. -Patient acknowledges that he is weak and is now considering going to [facility]. At this moment, it is clear patient is having difficulty managing himself at home. Given the above history of not managing his ostomy bag, it is likely his suprapubic catheter has been compromised as there concern that catheter may be contaminated with feces Consulted Urology, however plan will be to exchange catheter at the outpatient appointment. Patient did not want catheter exhanged. Urine culture also not growing bacteria. (2) Weakness: Plan: -Patient was too weak to get himself out of his recliner last night and was found in it this am -Likely a combination of his recent stroke, multiple chronic medical comorbidities, and UTI today -Continue treatment of his acute medical issues -PT/OT consults -Patient is likely going to have to be placed on discharge (3) Abnormal CT of brain: Plan: -Ct of the head/brain wo con today noted "Subtle hyperdensity within the cortex of the right parietal lobe. 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 -will resume eliquis and aspirin (4) Urinary tract infection: Plan: -Patient appears to have a UTI today on UA, however, he has a chronic indwelling byrne catheter -Hx of Pseudomonas, klebsiella, and proteus UTI's in the past, all have been sensitive to cefepime -treated with cefepime, given negative UA will stop cefepime on 10/23 (5) Recent cerebrovascular accident (CVA): Plan: -See abnormal CT of the brain for details (6) (HFpEF) heart failure with preserved ejection fraction: Plan: -Currently euvolemic -Monitor volume status daily obtain repeat limited echo (7) Atrial fibrillation: Plan: -Currently in afib -Having to hold Eliquis today with CT head/brain findings -Has not required rate limiting medications (8) DM (diabetes mellitus), type 2: Plan: -Monitor BSG ACHS, goal is 110-160 -Continue home 5 units lantus HS -CF 50 and CR 15 ACHS -Adjust regimen as needed Chronic Kidney Disease stage 4 will remove fluid restriction as creatinine worsened. will monitor Admission and Anticipated Discharge Date Admission Date: October 22, 2023 Subjective Pstient reports no new symptoms. Physical Exam Physical Exam: HEENT: Normocephalic, atraumatic Chest/Pulm: No respiratory distress, symmetrical chest expansion, CTA Cardiac: irregular rate and rhythm, no murmurs noted Abdomen: normoactive bowel sounds, soft, non-tender to palpation throughout : Supra pubic catheter is in place and is without signs of infection or purulent drainage from the insertion site, currently draining clear, yellow urine Extremities: Radial, dorsalis pedis, and posterior tibial pulses are intact and symmetrical, no edema noted in the BL LE's Psych: No acute distress, calm and cooperative during the exam Results & Data Results & Data Vital Signs (Past 12 Hours) Vital Signs Temp Pulse Pulse Resp BP Pulse Ox Pulse Ox 10/24/23 20:28 36.4 C L 84 14 137/77 96 10/24/23 17:00 36.5 C 78 16 136/105 H 94 10/24/23 17:00 94 10/24/23 16:35 10/24/23 16:00 36.6 C 74 16 105/65 94 10/24/23 11:00 36.6 C 65 18 118/64 99 O2 Del Method O2 Del Method 10/24/23 20:28 Room Air 10/24/23 17:00 Room Air 10/24/23 17:00 Room Air 10/24/23 16:35 Room Air 10/24/23 16:00 Room Air 10/24/23 11:00 Room Air PG Care Time/CCT Total # of Minutes Spent Total Time Spent with Patient: Total time spent is greater than 50% in coordination of care (as documented) at patient's floor/unit and/or counseling patient: Coding Level of Care Code 04044 SUB INP/OBS CARE 3/50MIN Diagnoses Failure to thrive in adult R62.[address] of brain R90.89 Urinary tract infection N39.0 Recent cerebrovascular accident (CVA) Z86.73 (HFpEF) heart failure with preserved ejection fraction I50.30 Atrial fibrillation I48.91 DM (diabetes mellitus), type 2 E11.9
--- NOTE | 2023-10-25 09:04 | Hospitalist Progress Note ---
Date of Service October 25, 2023 Assessment & Plan (1) Failure to thrive in adult: Plan: Patient admitted after discharge from [facility] on 10/19/2023. Once again found with encephalopathy undetermined cause. On admission was stable and non-toxic appearing -Patient was found by EMS in his recliner, too weak to get up, with his ostomy bag off, covered in feces. -Per EMS, friend/caregiver, and his Son/POA, the house was in disarray and there are serious concerns that the patient would be unable to safely care for himself at home -Patient recently suffered a large acute right temporoparietal CVA earlier this month, -Consulted psych to evaluate for medical capacity. -Patient is able to make medical decisions. -Patient acknowledges that he is weak and is now [facility]. At this moment, it is clear patient is having difficulty managing himself at home. Given the above history of not managing his ostomy bag, it is likely his suprapubic catheter has been compromised as there concern that catheter may be contaminated with feces Consulted Urology, however plan will be to exchange catheter at the outpatient appointment. Patient did not want catheter exhanged. Urine culture also not growing bacteria. Physical therapy Occupational Therapy consult Patient admitted 09/26 to 10/05/2023, 10/08 to 10/12/2023, discharged from [facility] rehab on 10/19/23 and readmitted 10/22/2023 (2) Abnormal CT of brain: Plan: -Ct of the head/brain wo con today noted "Subtle hyperdensity within the cortex of the right parietal lobe. 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 -Subsequently did resume eliquis and aspirin (3) (HFpEF) heart failure with preserved ejection fraction: Plan: -Currently euvolemic -Monitor volume status daily obtain repeat limited echo previous had pericardial effusion which appeared to be traumatic drained History of permanent atrial fibrillation as mentioned is on anticoagulation no requirement of rate controlling medications at this time (4) DM (diabetes mellitus), type 2: Plan: -Monitor BSG ACHS, goal is 110-160 -Continue home 5 units lantus HS -CF 50 and CR 15 ACHS -Adjust regimen as needed Chronic Kidney Disease stage 4 will remove fluid restriction as creatinine worsened. 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 He is in some distress regarding the area on his suprapubic catheter. He has fleeting periods of confusion otherwise appears to be alert and oriented and intact. He is now agreeable to considering [facility] for placement for subacute rehab Physical Exam Physical Exam: Alert and oriented x 3 Card exam is regular (recent pericardial effusion drain) Lungs are clear without wheezes or crackles Abdomen normal active bowel sounds. Suprapubic area of drainage does have some sloughing and scabbing on it this will be cleaned daily will apply a antifungal barrier cream Results & Data Results & Data Vital Signs (Past 12 Hours) Vital Signs Temp Pulse Resp BP Pulse Ox Pulse Ox O2 Del Method 10/25/23 07:52 97.3 F L 81 17 164/83 H 100 Room Air 10/24/23 21:21 Room Air 10/24/23 21:21 96 O2 Del Method 10/25/23 07:52 10/24/23 21:21 10/24/23 21:21 Room Air PG Care Time/CCT Total # of Minutes Spent Total Time Spent with Patient: Total time spent is greater than 50% in coordination of care (as documented) at patient's floor/unit and/or counseling patient: Coding Level of Care Code 74466 SUB INP/OBS CARE 2/35MIN Diagnoses Failure to thrive in adult R62.[address] of brain R90.89 (HFpEF) heart failure with preserved ejection fraction I50.30 DM (diabetes mellitus), type 2 E11.9
[2023-10-25] MEDS: APIXABAN 2.5 MG TAB PO SCH (09:25)
[2023-10-25] MEDS: ASPIRIN 81 MG ECTAB PO SCH (09:26)
--- NOTE | 2023-10-25 13:57 | XCELERA ---
[id number]
[2023-10-25 21:13] VITALS: TEMP 97.5
--- NOTE | 2023-10-26 05:39 | Electrocardiogram Report ---
Test Reason : Blood Pressure : / mmHG Vent. Rate : 080 BPM Atrial Rate : 300 BPM P-R Int : 000 ms QRS Dur : 092 ms QT Int : 446 ms P-R-T Axes : 000 009 164 degrees QTc Int : 514 ms Atrial fibrillation Septal infarct , age undetermined Prolonged QT Abnormal ECG When compared with ECG of 22-OCT-2023 11:28, Septal infarct is now Present Confirmed by Jasbir Clifford ([id number]) on 10/26/2023 5:39:20 AM Referred By: REFERRED SELF Confirmed By:Jasbir Clifford
[2023-10-26 07:27] VITALS: BP 139/72; PULSE 82; RESP 16; O2SAT 98
[2023-10-26] MEDS: TRIAMCINOLONE ACET 0.1% CR 80 GM TUBE EXT SCH (08:39)
--- NOTE | 2023-10-26 16:07 | Discharge Summary ---
Discharge Summary Date of Service October 26, 2023 Principal Dx & Hospital Course #1 = Principal Diagnosis (1) Failure to thrive in adult: Patient admitted after discharge from [facility] on 10/19/2023. Once again found with encephalopathy undetermined cause. On admission was stable and non-toxic appearing -Patient was found by EMS in his recliner, too weak to get up, with his ostomy bag off, covered in feces. -Per EMS, friend/caregiver, and his Son/POA, the house was in disarray and there are serious concerns that the patient would be unable to safely care for himself at home -Patient recently suffered a large acute right temporoparietal CVA earlier this month, -Consulted psych to evaluate for medical capacity. -Patient is able to make medical decisions. -Patient acknowledges that he is weak and is now considering going [facility]. At this moment, it is clear patient is having difficulty managing himself at home. Given the above history of not managing his ostomy bag, it is likely his suprapubic catheter has been compromised as there concern that catheter may be contaminated with feces Consulted Urology, however plan will be to exchange catheter at the outpatient appointment. Urine culture also not growing bacteria, chronically colonized with jewell Physical therapy Occupational Therapy consult Patient admitted 09/26 to 10/05/2023, 10/08 to 10/12/2023, discharged from [facility] rehab on 10/19/23 and readmitted 10/22/2023 (2) Abnormal CT of brain: -Ct of the head/brain wo con today noted "Subtle hyperdensity within the cortex of the right parietal lobe. 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 -Subsequently did resume eliquis and aspirin (3) (HFpEF) heart failure with preserved ejection fraction: -Currently euvolemic -Monitor volume status daily obtain repeat limited echo previous had pericardial effusion which appeared to be traumatic drained History of permanent atrial fibrillation as mentioned is on anticoagulation no requirement of rate controlling medications at this time (4) DM (diabetes mellitus), type 2: -Monitor BSG ACHS, goal is 110-160 -Continue home 5 units lantus HS loose sliding scale maybe considered Chronic Kidney Disease stage 4 will remove fluid restriction as creatinine worsened. 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 Suprapubic catheter entrances crosstable apply more frequent wound care and try to clean this up Patient now agreeable to consideration of subacute rehab transfered to [facility] at discharge Admission HPI Per Admitting Provider Gian is a 83 year old male with a PMH significant for recent admission from 10/08-10/11 for large acute right temporoparietal CVA, HFrEF (LVEF of 45-50% as of 10/02/23), atrial fibrillation (On eliquis), DMII, hx of rectal cancer S/P colostomy and chronic indwelling suprapubic catheter placement, and HTN who presented to the [facility] ED via EMS on 10/22/23 after his friend/caregiver found him at home, confused and unable to care for himself. The patient was reportedly confused and agitated on EMS arrival. On arrival to the ED her was noted to be hypertensive at 160/81 but otherwise stable. Labs were significant for a cr of 2.57 (baseline is near 2.1), and UA consistent with UTI. Chest xray was read as negative for acute findings. CT of the head/brain wo con was read as "1. No acute infarct. 2. Subtle hyperdensity within the cortex of the right parietal lobe. 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 Therefore, [address] follow-up recommended to ensure stability of this finding.". Prior to admission the patient was given a dose of cefepime. Prior to evaluating the patient I spoke to the patient's friend/caregiver who had been at the bedside and stopped me in the daniel. She handed me her phone as the patient's Son/POA (Ricardo Bhakta) had many concerns regarding his father's safety at home. Ricardo lives in [place] but had just been back in the area after his father's recent admission for CVA and stay at [facility]. The patient's son and patient's friend explained that the patient once again was found in his recliner, unable to get up. His ostomy bag had been off all night leaving his stoma exposed. He was covered in feces, confused, and agitated. The patient reportedly called his son at 0600 [address], which is approximately [address] asking why his home health nurses had not yet arrived. They also showed me a group text chain the patient started in which he only sent messages with random letter. His son is currently working with the patient's PCP and a hair colorist to get full decision making power as he and those close to the patient do not believe he is safe at home himself. At the time of the exam the patient was lying in no acute distress. He states that he could not get out of his recliner because he accidentally adjusted the wrong way and became stuck. I asked him what happened to his ostomy bag at home. He cannot remember what happened but acknowledged that it was off all night. He is frustrated as he would ideally like to be discharged home. However, I explained to him his hx of resistant UTI's requiring IV abx and the need to obtain repeat CT head tomorrow to ensure he has no new changes. He is willing to be admitted at this time for care and PT/OT evaluations. He states, "I have an upcoming appointment with Dr. Torres Tomorrow". I explained to him that this would be unlikely as tomorrow is Tuesday. He responded with , "well it must be on Tuesday then". He denies any discomfort or pain at this time. He also confirms that he is a DNR/DNI, his son is his POA, and he would not want to be transferred to a tertiary care center for intervention if he were to have a brain hemorrhage. At that time he would want to be transitioned to comfort measures if he was in critical condition. Please refer to Dr. Mora's attestation for any changes to the treatment plan Discharge Exam Awake and alert in his normal state he is a weekend. Suprapubic catheter site looks improved from 1 day prior after good cleaning. Updated Medication List Medication Instructions Recorded Confirmed Type ferrous sulfate 325 mg (65 mg 325 mg PO QAM 02/24/18 10/22/23 History iron) tablet rosuvastatin 10 mg tablet 10 mg PO HS 02/24/18 10/22/23 History cyanocobalamin (vitamin B-12) 1,000 mcg PO DAILY 12/19/19 10/22/23 History 1,000 mcg tablet (Vitamin B-12) cholecalciferol (vitamin D3) 25 2,000 unit PO DAILY #180 tabs 04/25/20 10/22/23 Rx mcg (1,000 unit) tablet (Vitamin D3) trospium 60 mg capsule,extended 60 mg PO DAILYBB 04/18/23 10/22/23 History release 24 hr sitagliptin phosphate 50 mg tablet 50 mg PO DAILY 09/27/23 10/22/23 History (Januvia) apixaban 2.5 mg tablet (Eliquis) 2.5 mg PO BID #30 tabs 10/05/23 10/22/23 Rx aspirin 81 mg tablet,delayed 81 mg PO DAILY #30 tabs 10/12/23 10/22/23 Rx release docusate sodium 100 mg capsule 100 mg PO BID 10/13/23 10/22/23 History (Colace) insulin glargine 100 unit/mL (3 5 unit subcut PM 10/19/23 10/22/23 History mL) subcutaneous pen (Basaglar KwikPen U-100 Insulin) amlodipine 2.5 mg tablet 2.5 mg PO DAILY 10/22/23 10/22/23 History omeprazole 20 mg capsule,delayed 20 mg PO DAILY 10/22/23 10/22/23 History release insulin aspart U-100 100 unit/mL 1 sliding scale dose SC ACHS #10 mL 10/26/23 Rx subcutaneous solution (Novolog U-100 Insulin aspart) Hospital Stay Data Consultations 10/22/23 14:35 ED Decision to Admit Stat 10/24/23 09:03 Consult Psychiatry Routine 10/24/23 09:04 Consult Urology Routine Diagnostic Imagining Performed 10/22/23 11:39 CT head/brain wo con Stat 10/22/23 15:57 MRI Brain [MR brain wo con] Routine 10/23/23 12:00 CT head/brain wo con Routine Pending Results Patient Have Any Pending Studies at Discharge: No Discharge Instructions Given to Patient (Per Discharging Provider) please keep an eye out for recurrence of urine infection Total Time Total Time Spent Total Time Spent (In Minutes): It required greater than 30 minutes to prepare this patient for discharge. Coding Level of Care Code 39119 INP/OBS DISCH >30 MIN Diagnoses Failure to thrive in adult R62.[address] of brain R90.89 (HFpEF) heart failure with preserved ejection fraction I50.30 DM (diabetes mellitus), type 2 E11.9
== END 2023-10-26 15:55 | DRG 690 ==
LOC: ED 10:09 → 2S 14:46 → SUATTDRO 14:46 → 2S 16:36 → 3W 10-24 16:40

== ENCOUNTER 2024-04-24 03:27 | Inpatient (IN) ==
[2024-04-24] MEDS: LIDOCAINE/EPINEPH/TETRACAINE 1 EA SYR EXT STA (04:16)
[2024-04-24] MEDS: HYDROmorphone INJ 0.5 MG/0.5 ML SYR IV PRN ×3 (04:18→12:49)
[2024-04-24 04:26] LABS: Basophils # (auto) 0.03 K/uL (0.00-0.20); Basophils % (auto) 0.3 %; Eosinophils # (auto) 0.12 K/uL (0.00-0.50); Eosinophils % (auto) 1.4 %; Hematocrit (blood only) 35.2 % (42.0-52.0); Hemoglobin 11.4 g/dl (14.0-18.0); Immature Granulocytes # (auto) 0.05 K/uL (0.01-0.20); Immature Granulocytes % (auto) 0.6 %; Lymphocytes # (auto) 0.67 K/uL (1.20-3.40); Lymphocytes % (auto) 7.8 %; Mean Corpuscular Hemoglobin 27.8 pg (25.0-34.0); Mean Corpuscular Hgb Conc 32.4 g/dL (32.0-36.0); Mean Corpuscular Volume 85.9 fL (80.0-100.0); Mean Platelet Volume 9.8 fL (9.4-12.4); Monocytes # (auto) 0.48 K/uL (0.11-0.59); Monocytes % (auto) 5.6 %; Neutrophils # (auto) 7.26 K/uL (1.40-6.50); Neutrophils % (auto) 84.3 %; Platelet Count 249 K/uL (130-400); RDW Coefficient of Variation 14.6 % (11.5-14.5); RDW Standard Deviation 45.7 fL (36.4-46.3); White Blood Count 8.61 K/ul (4.8-10.8)
[2024-04-24 04:43] LABS: Albumin Level 3.3 gm/dl (3.4-5.0); BUN Creatinine Ratio 24.8 (10-20); Bilirubin,Total 0.3 mg/dl (0.2-1.0); Calcium 8.9 mg/dl (8.6-10.3); Creatinine Clr Calc Pharmacy 23.1 ml/min; Globulin 3.4 gm/dl (2.5-4.0); Potassium 4.3 mmol/L (3.5-5.1); Total Protein 6.7 gm/dl (6.0-8.3); Troponin I High Sensitivity 15.4 pg/ml (0-20)
[2024-04-24 04:47] LABS: Partial Thromboplastin Ratio 1.1; Partial Thromboplastin Time 29 Seconds (21-31); Prothrombin Time 11.3 Seconds (9.0-12.0)
--- NOTE | 2024-04-24 04:58 | XRay Report ---
EXAM: XR chest 1V portable CLINICAL HISTORY: FALL RT HIP DEFORMITY JMF TECHNIQUE: X-ray image of the chest is obtained in AP portable projection. COMPARISON: Comparison with the previous study dated 10/22/2023. FINDINGS: Pulmonary Parenchyma: Prominent both tiarra with perihilar congestion, a cardiac cause should be considered for clinical correlation. Lungs are clear bilaterally. No evidence of consolidation, collapse, or focal opacities. No pulmonary nodules are identified. No evidence of pleural effusion or pleural thickening. Heart and Mediastinum: Cardiomegaly. No mediastinal widening or masses. No hilar or mediastinal lymphadenopathy. Bony Thorax: Evidence of an old right 6th rib posterior fracture. An old left humeral diaphysis fracture Soft Tissues: Soft tissues overlying the chest wall are unremarkable. IMPRESSION: 1. Prominent both tiarra with perihilar congestion, a cardiac cause should be considered for clinical correlation. Mild interval progression noted 2. Cardiomegaly. 3. Old healed fracture of right 6th rib posterior and left humeral diaphysis. 4. No other significant changes in comparison with previous study) Electronically signed by Hector Presley 04-24-2024 04:58 AM
[2024-04-24 05:07] LABS: Appearance Urine Cloudy (Clear); Bacteria Urine Automated 4+ (None Seen); Bilirubin Urine Negative (Negative); Blood Urine 1+ (Negative); Color Urine Yellow; Epithelial Cell Urine Auto 0-2 /hpf (0-2); Glucose Urine UA 2+ (Negative); Ketones Urine Negative (Negative); Leukocyte Esterase Urine 2+ (Negative); Nitrite Urine Negative (Negative); Protein Urine 3+ (Negative); RBC Urine Automated 0-2 /hpf (0-2); Specific Gravity Urine 1.015 (1.000-1.030); Urobilinogen Urine Negative (Negative); WBC Urine Automated >50 /hpf (0-5)
--- NOTE | 2024-04-24 05:18 | CT Scan Report ---
EXAM: CT cervical spine wo con CLINICAL HISTORY: FELL HIT HEAD, TRAUMA TECHNIQUE: CT scan of the cervical spine was performed without the administration of intravenous contrast. Contiguous axial images were obtained from the skull base to the upper thoracic spine. Coronal and sagittal reformatted images were also reviewed. One of the following dose reduction techniques was utilized for this exam. Automated exposure control, adjustment of the mA and/or kV according to patient size, and use of iterative reconstruction. COMPARISON: CT on 09/27/2023. FINDINGS: No evidence of acute fracture or dislocation. Fusion between C3 and C4 vertebra. The cortical and trabecular bone patterns are normal. No signs of lytic or sclerotic lesions. Spondylotic changes in the visualized spine with multilevel marginal bony hypertrophies, facet arthropathic changes, endplate changes, and reduced to lost intervertebral disc spaces. Multilevel disc bony hypertrophy complexes in combination with facet arthropathic changes exert effects on the spinal canal and neural foraminal. Atlantoaxial degenerative changes. Soft tissue calcification is seen in the posterior aspect of the neck. IMPRESSION: No evidence of acute fracture or dislocation. Moderate-severe spondylotic changes were noted, stable in comparison with CT on 09/27/2023. Electronically signed by Hector Presley 04-24-2024 05:17 AM
--- NOTE | 2024-04-24 05:19 | XRay Report ---
EXAM: XR hip RT 2V w pelvis CLINICAL HISTORY: FALL RT HIP DEFORMITY JMF TECHNIQUE: X-ray images of the right hip joints in AP and lateral and pelvis were obtained in anteroposterior (AP) projection. COMPARISON: No prior studies are available for comparison. FINDINGS: Pelvic Bones: Pelvic bones, including the iliac wings, ischium, pubis, and sacrum, are normal and intact. No evidence of fractures, dislocations, or significant osseous lesions. Hip Joint: Moderately displaced Intertrochantric fracture of the right femur. Acetabular structures appear normal and intact. No signs of acetabular fracture or dysplasia. Sacroiliac joints appear normal and unremarkable. No evidence of sacroiliitis or significant degenerative changes. Symphysis Pubis: The symphysis pubis is normal and intact. No evidence of separation or widening. Soft Tissues: Visualized soft tissues are normal and unremarkable. No soft tissue swelling, calcifications, or masses. Additional Findings: Small rounded sclerotic densities are seen projecting over the right iliac bone and left superior and inferior pubic rami. IMPRESSION: Displaced intertrochantric fracture of the right femur. DISCLAIMER:A subtle bone abnormality or fracture may not be readily apparent on x-rays, thus clinical correlation and further imaging including follow up CT, MRI, or follow up x-rays are advised as needed. Electronically signed by Hector Presley 04-24-2024 05:17 AM
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
--- NOTE | 2024-04-24 05:26 | Emergency Department Note ---
Impression & Plan Closed right hip fracture, Fall, CHI (closed head injury), Laceration of scalp, Anticoagulated ED Provider Note NAME: MARIXA TAYLOR AGE: 84 SEX: Male INFORMANT: Patient ED PROVIDER(S): Elder Gordon MD CHIEF COMPLAINT: Fall/trauma PLAN: Disposition: Admitted Outpatient prescription management: none Referral: None MEDICAL DECISION MAKING: Patient presented because of an accidental fall. He had right hip pain. Clinical examination was concerning for right hip fracture. He had a small scalp laceration and small hematoma present. He denied any headache or neck pain. No chest or abdominal injury. Patient was given a small dose of IV Dilaudid for pain control. CT imaging of the head and C-spine were negative. Patient did have let gel applied to his scalp wound. Chest x-ray was negative for acute process. Unfortunately patient has a right hip fracture on x-ray imaging of the right hip and pelvis. His CBC and chemistry panel were unremarkable except for an elevated blood glucose. Patient does have a chronic elevation of his creatinine. His scalp wound was closed by me as noted below. Patient will need further evaluation and management in the hospital. Consultation was made with Dr. Tate Rivera of the [facility] service. Patient was evaluated in the ER for further management. Care/management discussed with: shift manager Level of care consideration(s): After review of the information above and other included data, I feel the patient requires escalation of care to admission Triage Nursing notes: reviewed and agree them. Vital Signs: reviewed and remarkable for no significant abnormalities Additional History obtained from: none Chronic Medical/Social Conditions affecting care: Anticoagulation Prior/ Outside/ External records reviewed: none Differential Diagnosis: Fracture, subluxation, dislocation, contusion, ligamentous injury, neurovascular, compartment syndrome, rhabdomyolysis, as well as other pathologies. Diagnostics, independently interpreted by me: ECG: Twelve-lead ECG reveals atrial fibrillation with PVCs at [address] elevation. Cardiac Monitoring: Cardiac monitoring ordered by me: The patient was placed on continuous cardiac monitoring and observed. It revealed atrial fibrillation at 77 bpm. Medical decision rules: none Imaging studies: Head CT: A noncontrast CT scan of the head was performed and was negative for tumor, fracture, intracranial hemorrhage, or other acute pathology. C-spine CT reveals degenerative changes without acute fracture. Chest x-ray. Findings: A chest x-ray was performed and revealed no pneumothorax, effusion, infiltrate, pulmonary edema, free air under the diaphragm, or wide mediastinum. Impression: No acute disease. X-ray ridging of the right hip and pelvis reveals right hip fracture. I refer you to the EMR for further details. HPI: 84 year old Male arrives for evaluation of trauma. Patient had an accidental fall this evening. He was on the floor for about an hour. He noted pain in the right hip and also struck the right side of his head. The patient also notes the following associated symptoms, feeling a little bit lightheaded prior to the accident. The patient has been given no medication prehospital relieving factors. Current pain is rated as 5/10. Pain in the right hip is worse with movement. Patient was unable to walk. Patient is anticoagulated and has an ostomy plus indwelling Marks.. Pt denies LOC, headache, visual changes, neck pain, chest pain, breathing difficulties, nausea, vomiting, abdominal pain, back pain, other extremity pain, numbness, focal weakness, or other complaints. PAST MEDICAL HISTORY: See Below, A-fib, anticoagulation PAST SURGICAL HISTORY: See Below, SOCIAL HISTORY: See Below, retired HOME MEDICATIONS: See Below ALLERGIES: See Below VITALS: See Below PHYSICAL EXAMINATION: GENERAL: Awake, alert, uncomfortable-appearing, in no distress HENT: Normocephalic, right scalp contusion with laceration present. Oropharynx unremarkable. EYES: Normal conjunctiva. Sclera non-icteric. PERRLA. NECK: Inspection normal. Non-tender. Supple. No nuchal rigidity. FROM. No masses. RESPIRATORY: Clear to auscultation. No wheezes. No rales. Normal respiratory effort. CARDIAC: Normal rate. Irregular rhythm. Extremities warm and well perfused. Pulses equal. No JVD. GI: Soft, non-distended. No tenderness to palpation. No rebound or guarding. Ostomy present in the right lower quadrant. Suprapubic catheter present. RECTAL: Deferred. MUSCULOSKELETAL: Atraumatic. Chest examination reveals no tenderness. There is no CVA tenderness to palpation. No joint edema. LOWER EXTREMITIES: Right lower extremity shortened and externally rotated. There is right hip tenderness and limited range of motion. NEURO: Normal sensorium. No sensory or motor deficits noted. SKIN: No rash or jaundice noted. PROCEDURES: Location: Scalp Total length: 2.5 cm Complexity: Simple Verbal consent was obtained after the risks and benefits were explained, including but not limited to bleeding, scarring, infection, pain, and bone/nerve damage. At this time, the risks of the procedure are less than the risks of NOT performing the procedure. A time out was taken and the correct patient and site identified. The scalp was prepped with betadine. The target area was anesthetized with let gel. Copious irrigation was performed using saline. The skin was re-prepped with betadine, the hair cleared from the wound, and a sterile field set. The wound was explored for foreign bodies and none found. Debridement was not performed. The wound edges were approximated using 4 surgical alexis in the standard fashion. Hemostasis and excellent approximation was achieved. Antibacterial ointment and a sterile dressing applied. Detailed wound care instructions and signs and symptoms of infection reviewed with the patient. No complications and the patient tolerated the procedure well. CRITICAL CARE: none OBSERVATION NOTE: none Past Med/Surg History Problem List (Updated 04/24/24 @ 06:24 by Estelita Haynes DO) Asymptomatic bacteriuria Anticoagulated (Acute) Laceration of scalp (Acute) CHI (closed head injury) (Acute) Fall (Acute) Closed right hip fracture (Acute) Colostomy care (Acute) Elevated troponin High anion gap metabolic acidosis Heart failure with reduced ejection fraction Atrial fibrillation Acute CVA (cerebrovascular accident) (Acute) Leucocytosis (Acute) Non-ST elevation [place] (NSTEMI) (Acute) Acute confusion (Acute) Generalized weakness (Acute) Chronic kidney disease, stage 4 (severe) Pericardial effusion Cardiomegaly (Acute) Edema of right lower extremity (Acute) Rib pain (Acute) New onset atrial fibrillation (Acute) Fall (Acute) Food impaction of esophagus Esophageal abnormality (Acute) Vomiting (Acute) Acute kidney injury Skin lesion History of urinary retention Benign prostatic hyperplasia with urinary obstruction and other lower urinary tract symptoms (Acute) DM (diabetes mellitus), type 2 (Acute) Hyperlipidemia (Acute) Hypertension (Acute) Urinary retention (Acute) Anemia Vitamin D deficiency Diabetes Diarrhea Obstructive uropathy (Chronic) Pre-syncope Rectal cancer (Chronic 06/17/17) "Rectal bleeding Status post colonoscopy and biopsy 06/17/2017 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 Plan for combined radiation and chemotherapy followed by possible resection Status post completion of combined radiation and chemotherapy August 30, 2017." On 07/07/17 13:09 Felicia Maggie Hannon wrote "Rectal bleeding Status post colonoscopy and biopsy 06/17/2017 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 Plan for combined radiation and chemotherapy followed by possible resection" Medical History (HFpEF) heart failure with preserved ejection fraction Anticoagulant long-term use Recent cerebrovascular accident (CVA) Suprapubic catheter Jewell UTI 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 Family History Other Family history non-contributory Social History Smoking Status: Never smoker Do You Dip or Chew Tobacco: No; Hx Alcohol Use: No Hx Substance Use: No Preferred Language: Chinese Communication Ability: Effective Visual Impairment: No Limitations 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: Normal Continuous Improvement Coach Required: No Beliefs That Will Affect Care: None marital status: / Current Living Situation: Alone Current Living Situation Comment: home current occupational status: retired Feels Safe at Home: Yes Assistive Devices: Glasses and Walker Allergies Allergies Allergy/AdvReac Type Severity Reaction Status Date / Time atorvastatin [From Lipitor] Allergy Unknown Verified 03/22/24 13:32 Home Meds Home Medications Medication Instructions Recorded Confirmed ferrous sulfate 325 mg (65 mg 325 mg PO QAM 02/24/18 03/22/24 iron) tablet rosuvastatin 10 mg tablet 10 mg PO HS 02/24/18 03/22/24 cyanocobalamin (vitamin B-12) 1,000 mcg PO DAILY 12/19/19 03/22/24 1,000 mcg tablet (Vitamin B-12) trospium 60 mg capsule,extended 60 mg PO DAILYBB 04/18/23 03/22/24 release 24 hr sitagliptin phosphate 50 mg tablet 50 mg PO DAILY 09/27/23 03/22/24 (Januvia) docusate sodium 100 mg capsule 100 mg PO BID 10/13/23 03/22/24 (Colace) insulin glargine 100 unit/mL (3 5 unit subcut PM 10/19/23 03/22/24 mL) subcutaneous pen (Basaglar KwikPen U-100 Insulin) amlodipine 2.5 mg tablet 2.5 mg PO DAILY 10/22/23 03/22/24 omeprazole 20 mg capsule,delayed 20 mg PO DAILY 10/22/23 03/22/24 release ondansetron HCl 4 mg tablet 4 mg PO Q8H PRN NAUSEA/VOMITING 11/07/23 03/22/24 vibegron 75 mg tablet (Gemtesa) 75 mg PO DAILY 12/02/23 03/22/24 Previous Rx's Medication Instructions Recorded cholecalciferol (vitamin D3) 25 2,000 unit PO DAILY #180 tabs 04/25/20 mcg (1,000 unit) tablet (Vitamin D3) insulin aspart U-100 100 unit/mL 1 sliding scale dose SC ACHS #10 mL 10/26/23 subcutaneous solution (Novolog U-100 Insulin aspart) apixaban 2.5 mg tablet (Eliquis) 2.5 mg PO BID #180 tabs 01/02/24 fosfomycin tromethamine 3 gram 1 packet PO Q OTHER DAY 3 doses #3 01/24/24 oral packet ea Results & Data (ED) Vital Signs Vital Signs - 24 hr 04/24/24 03:32 04/24/24 03:34 04/24/24 03:52 Temperature 36.7 C Temperature Source Oral Pulse Rate 89 82 Pulse Rate [Apical] Pulse Rhythm Pulse Rhythm [Apical] Pulse Strength [Apical] Pulse Strength [Carotid] Normal Respiratory Rate 20 Respiratory Effort / Characteristics Non-Labored Spontaneous Respiratory Depth Normal Respiratory Pattern Blood Pressure 169/90 H Blood Pressure [Left Arm] Blood Pressure Mean 116 Blood Pressure Mean [Left Arm] Pulse Oximetry 100 Oxygen Delivery Method Room Air Room Air Sepsis Recent Fever Within 48 Hours No Sepsis New/Unexplained Change in Mental Status N/A Sepsis Action Taken by Nursing No Action Required 04/24/24 03:58 04/24/24 04:09 04/24/24 04:30 Temperature Temperature Source Pulse Rate 78 84 Pulse Rate [Apical] Pulse Rhythm Pulse Rhythm [Apical] Pulse Strength [Apical] Pulse Strength [Carotid] Respiratory Rate 24 16 Respiratory Effort / Characteristics Respiratory Depth Respiratory Pattern Blood Pressure 148/95 H 126/92 Blood Pressure [Left Arm] Blood Pressure Mean 112 103 Blood Pressure Mean [Left Arm] Pulse Oximetry 100 99 97 Oxygen Delivery Method Room Air Sepsis Recent Fever Within 48 Hours Sepsis New/Unexplained Change in Mental Status Sepsis Action Taken by Nursing 04/24/24 05:00 04/24/24 05:30 04/24/24 06:00 Temperature Temperature Source Pulse Rate 77 69 75 Pulse Rate [Apical] Pulse Rhythm Pulse Rhythm [Apical] Pulse Strength [Apical] Pulse Strength [Carotid] Respiratory Rate 20 18 20 Respiratory Effort / Characteristics Respiratory Depth Respiratory Pattern Blood Pressure 140/89 144/106 H 130/84 Blood Pressure [Left Arm] Blood Pressure Mean 106 112 99 Blood Pressure Mean [Left Arm] Pulse Oximetry 97 98 99 Oxygen Delivery Method Room Air Room Air Sepsis Recent Fever Within 48 Hours Sepsis New/Unexplained Change in Mental Status Sepsis Action Taken by Nursing 04/24/24 07:01 04/24/24 07:02 Temperature 36.5 C Temperature Source Oral Pulse Rate 80 Pulse Rate [Apical] 72 Pulse Rhythm Regular Pulse Rhythm [Apical] Regular Pulse Strength [Apical] Normal Pulse Strength [Carotid] Respiratory Rate 18 18 Respiratory Effort / Characteristics Non-Labored Spontaneous Respiratory Depth Normal Respiratory Pattern Regular Blood Pressure Blood Pressure [Left Arm] 149/98 H Blood Pressure Mean Blood Pressure Mean [Left Arm] 115 Pulse Oximetry 100 100 Oxygen Delivery Method Room Air Room Air Sepsis Recent Fever Within 48 Hours Sepsis New/Unexplained Change in Mental Status Sepsis Action Taken by Nursing Laboratory Data 04/24/24 03:45 04/24/24 03:45 Lab Results 04/24/24 04/24/24 Range/Units 03:45 04:20 WBC 8.61 (4.8-10.8) K/ul RBC 4.10 L (4.70-6.10) M/uL Hgb 11.4 L (14.0-18.0) g/dl Hct 35.2 L (42.0-52.0) % MCV 85.9 (80.0-100.0) fL MCH 27.8 (25.0-34.0) pg MCHC 32.4 (32.0-36.0) g/dL RDW Std Deviation 45.7 (36.4-46.3) fL RDW Coeff of Timoteo 14.6 H (11.5-14.5) % Plt Count 249 (130-400) K/uL MPV 9.8 (9.4-12.4) fL Immature Gran % (Auto) 0.6 % Neut % (Auto) 84.3 % Lymph % (Auto) 7.8 % Ralls % (Auto) 5.6 % Eos % (Auto) 1.4 % Baso % (Auto) 0.3 % Neut # (Auto) 7.26 H (1.40-6.50) K/uL Lymph # (Auto) 0.67 L (1.20-3.40) K/uL Ralls # (Auto) 0.48 (0.11-0.59) K/uL Eos # (Auto) 0.12 (0.00-0.50) K/uL Baso # (Auto) 0.03 (0.00-0.20) K/uL Immature Gran # (Auto) 0.05 (0.01-0.20) K/uL PT 11.3 (9.0-12.0) Seconds INR 1.0 (0.9-1.1) APTT 29 (21-31) Seconds PTT Ratio 1.1 Sodium 137 (136-145) mmol/L Potassium 4.3 (3.5-5.1) mmol/L Chloride 109 H (98-107) mmol/L Carbon Dioxide 19 L (21-32) mmol/L Anion Gap 9 (3-11) BUN 59 H (6-23) mg/dl Creatinine 2.38 H (0.6-1.4) mg/dl Est Cr Clr Drug Dosing 23.1 ml/min eGFR 26.22 BUN/Creatinine Ratio 24.8 H (10-20) Glucose 345 H* (70-99(Fasting)) mg/dl Calcium 8.9 (8.6-10.3) mg/dl Total Bilirubin 0.3 (0.2-1.0) mg/dl AST 26 (13-39) U/L ALT 19 (7-52) U/L Alkaline Phosphatase 101 (34-104) U/L Total Creatine Kinase 28 L (30-223) U/L Troponin I High Sens 15.4 (0-20) pg/ml Total Protein 6.7 (6.0-8.3) gm/dl Albumin 3.3 L (3.4-5.0) gm/dl Globulin 3.4 (2.5-4.0) gm/dl Albumin/Globulin Ratio 1.0 (0.9-2) Lipase 32 (11-82) U/L Urine Color Yellow Urine Appearance Cloudy A (Clear) Urine pH 5.0 (4.5-7.5) Ur Specific [place] 1.015 (1.000-1.030) Urine Protein 3+ H (Negative) Urine Glucose (UA) 2+ H (Negative) Urine Ketones Negative (Negative) Urine Blood 1+ H (Negative) Urine Nitrite Negative (Negative) Urine Bilirubin Negative (Negative) Urine Urobilinogen Negative (Negative) Ur Leukocyte Esterase 2+ H (Negative) Urine WBC (Auto) >50 H (0-5) /hpf Urine RBC (Auto) 0-2 (0-2) /hpf U Hyaline Cast (Auto) 6-10 H (0-2) /lpf U Epithel Cells (Auto) 0-2 (0-2) /hpf Urine Bacteria (Auto) 4+ H (None Seen) Administered Medications Hydromorphone HCl (Hydromorphone Inj 0.5 Mg/0.5 Ml Syr) 0.25 mg IV Q15M PRN PRN Reason: Pain Stop: 05/08/24 03:52 Last Admin: 04/24/24 06:39 Dose: 0.25 mg Documented By: Admin: 04/24/24 04:18 Dose: 0.25 mg Documented By: RYLEY Discontinued Medications Lidocaine (Lidocaine/Epineph/Tetracaine 1 Ea Syr) 1 each EXT NOW STA Stop: 04/24/24 03:52 Last Admin: 04/24/24 04:16 Dose: 1 each Documented By: RYLEY Imaging Data Radiologist's Impression: Chest X-Ray 04/24/24 03:50 EXAM: XR chest 1V portable CLINICAL HISTORY: FALL RT HIP DEFORMITY [facility] TECHNIQUE: X-ray image of the chest is obtained in AP portable projection. COMPARISON: Comparison with the previous study dated 10/22/2023. FINDINGS: Pulmonary Parenchyma: Prominent both tiarra with perihilar congestion, a cardiac cause should be considered for clinical correlation. Lungs are clear bilaterally. No evidence of consolidation, collapse, or focal opacities. No pulmonary nodules are identified. No evidence of pleural effusion or pleural thickening. Heart and Mediastinum: Cardiomegaly. No mediastinal widening or masses. No hilar or mediastinal lymphadenopathy. Bony Thorax: Evidence of an old right 6th rib posterior fracture. An old left humeral diaphysis fracture Soft Tissues: Soft tissues overlying the chest wall are unremarkable. IMPRESSION: 1. Prominent both tiarra with perihilar congestion, a cardiac cause should be considered for clinical correlation. Mild interval progression noted 2. Cardiomegaly. 3. Old healed fracture of right 6th rib posterior and left humeral diaphysis. 4. No other significant changes in comparison with previous study) Electronically signed by Hector Presley 04-24-2024 04:[address] 04/24/24 03:50 EXAM: CT head/brain wo con CLINICAL HISTORY: FELL HIT HEAD, TRAUMA TECHNIQUE: Axial non-contrast CT scan of the brain was performed from the skull base to the high parietal region with multiple reformats. One of the following dose reduction techniques were utilized for this exam: Automated exposure control, adjustment of the mA and/or kV according to patient size, use of iterative reconstruction. COMPARISON: 12/02/2023 FINDINGS: Brain Parenchyma: Still noted right parieto-temporal and smaller right frontal ill-defined area of encephalomalacia/gliosis. There are diffuse ill-defined iso-to hypodense areas noted in the subcortical white matter bilaterally, suggestive of microvascular ischemic changes. Normal attenuation of the cerebellum, and brainstem. No evidence of hemorrhage, or mass effect. Ventricular System: The ventricular system, cortical sulci and basal cisterns are prominent consistent with senile changes. Subarachnoid Spaces: No evidence of subarachnoid hemorrhage or extra-axial fluid collections. Sinuses: Clear paranasal sinuses. No evidence of sinusitis or mucosal thickening. Mastoid Air Cells: Clear mastoid air cells. No evidence of mastoiditis. Skull and Meninges: Small superficial right parietal scalp swelling with no underlying fractures. Normal skull morphology. IMPRESSION: 1. No acute cerebral abnormality. 2. Still noted right parieto-temporal and smaller right frontal ill-defined area of encephalomalacia/gliosis; likely sequel of old ishcemic insult (stable). 3. The above-mentioned findings are suggestive of microvascular ischemic changes and senile changes (stable). 4. Small superficial right parietal scalp swelling with no underlying fractures (new finding) Electronically signed by Hector Presley 04-24-2024 05:22 AM Hip/Pelvis X-Ray 04/24/24 03:50 EXAM: XR hip RT 2V w pelvis CLINICAL HISTORY: FALL RT HIP DEFORMITY [facility] TECHNIQUE: X-ray images of the right hip joints in AP and lateral and pelvis were obtained in anteroposterior (AP) projection. COMPARISON: No prior studies are available for comparison. FINDINGS: Pelvic Bones: Pelvic bones, including the iliac wings, ischium, pubis, and sacrum, are normal and intact. No evidence of fractures, dislocations, or significant osseous lesions. Hip Joint: Moderately displaced Intertrochantric fracture of the right femur. Acetabular structures appear normal and intact. No signs of acetabular fracture or dysplasia. Sacroiliac joints appear normal and unremarkable. No evidence of sacroiliitis or significant degenerative changes. Symphysis Pubis: The symphysis pubis is normal and intact. No evidence of separation or widening. Soft Tissues: Visualized soft tissues are normal and unremarkable. No soft tissue swelling, calcifications, or masses. Additional Findings: Small rounded sclerotic densities are seen projecting over the right iliac bone and left superior and inferior pubic rami. IMPRESSION: Displaced intertrochantric fracture of the right femur. DISCLAIMER:A subtle bone abnormality or fracture may not be readily apparent on x-rays, thus clinical correlation and further imaging including follow up CT, MRI, or follow up x-rays are advised as needed. Electronically signed by Hector Presley 04-24-2024 05:[address] 04/24/24 03:51 EXAM: CT cervical spine wo con CLINICAL HISTORY: FELL HIT HEAD, TRAUMA TECHNIQUE: CT scan of the cervical spine was performed without the administration of intravenous contrast. Contiguous axial images were obtained from the skull base to the upper thoracic spine. Coronal and sagittal reformatted images were also reviewed. One of the following dose reduction techniques was utilized for this exam. Automated exposure control, adjustment of the mA and/or kV according to patient size, and use of iterative reconstruction. COMPARISON: CT on 09/27/2023. FINDINGS: No evidence of acute fracture or dislocation. Fusion between C3 and C4 vertebra. The cortical and trabecular bone patterns are normal. No signs of lytic or sclerotic lesions. Spondylotic changes in the visualized spine with multilevel marginal bony hypertrophies, facet arthropathic changes, endplate changes, and reduced to lost intervertebral disc spaces. Multilevel disc bony hypertrophy complexes in combination with facet arthropathic changes exert effects on the spinal canal and neural foraminal. Atlantoaxial degenerative changes. Soft tissue calcification is seen in the posterior aspect of the neck. IMPRESSION: No evidence of acute fracture or dislocation. Moderate-severe spondylotic changes were noted, stable in comparison with CT on 09/27/2023. Electronically signed by Hector Presley 04-24-2024 05:17 AM Discharge Plan Visit Data Chief Complaint: Trauma Stated Complaint: GROUND LEVEL FALL, ON BLOOD THINNERS, HIT HEAD ED Provider: Elder Gordon Discharge Problem: Closed right hip fracture, Fall, CHI (closed head injury), Laceration of scalp, Anticoagulated Forms Stand Alone Forms: [facility] Prescriptions Prescriptions: No Action Eliquis 2.5 mg tablet 2.5 mg PO BID Qty: 180 3RF Hold Instructions: Resume on 10/17/23. fosfomycin tromethamine 3 gram packet 1 packet PO Q OTHER DAY Qty: 3 0RF cholecalciferol (vitamin D3) [Vitamin D3] 25 mcg (1,000 unit) tablet 2,000 unit PO DAILY Qty: 180 0RF docusate sodium [Colace] 100 mg capsule 100 mg PO BID ondansetron HCl 4 mg tablet 4 mg PO Q8H PRN (Reason: NAUSEA/VOMITING) ferrous sulfate 325 mg (65 mg iron) Tablet 325 mg PO QAM rosuvastatin 10 mg tablet 10 mg PO HS cyanocobalamin (vitamin B-12) [Vitamin B-12] 1,000 mcg tablet 1,000 mcg PO DAILY trospium 60 mg capsule,extended release 24hr 60 mg PO DAILYBB Januvia 50 mg tablet 50 mg PO DAILY insulin glargine [Basaglar KwikPen U-100 Insulin] 100 unit/mL (3 mL) insulin pen 5 unit SUBCUT PM amlodipine 2.5 mg tablet 2.5 mg PO DAILY omeprazole 20 mg capsule,delayed release(DR/EC) 20 mg PO DAILY insulin aspart U-100 [Novolog U-100 Insulin aspart] 100 unit/mL Solution 1 sliding scale dose SC ACHS Qty: 10 0RF Rx Instructions: please use loose sliding scale goal 90-150, correction 25 Gemtesa 75 mg Tablet 75 mg PO DAILY Referrals Referrals: Bisi Rhodes [Primary Care Provider] -
--- NOTE | 2024-04-24 05:36 | History & Physical Report ---
Date of Service April 24, 2024 Assessment & Plan (1) Closed right hip fracture: Plan: - noted on XR - ortho consulted - NPO pending ortho eval - pain scale with Tylenol IV 1000mg q8h, Dilaudid 0.25mg pain 1-5, 0.5mg Dilaudid pain 6-10 (2) Laceration of scalp: Plan: - alexis placed in ED and will need to be removed in 7 days - bleeding well controlled, wound is dressed at present (3) Anticoagulated: Plan: - on 2.5mg Eliquis PO BID for afib; is currently in afib - Eliquis held on admission pending ortho eval - last dose was yesterday evening - restart anticoagulation as soon as possible- if any plan delayed plan for OR would consider heparin gtt to bridge (4) DM (diabetes mellitus), type 2: Plan: - NPO- home home oral DM2 medications - continue glargine 5 units daily, SSI q6h while NPO. - Overall well controlled with last hemoglobin a1c= 7.5 09/2023. BG was elevated in ER at 345. (5) (HFpEF) heart failure with preserved ejection fraction: Plan: - last TTE 12/2023 with EF= 55-60%, trace pericardial effusion (follows with cardiology) - some congestion noted on CXR; appears euvolemic on exam - NPO at present- hold on IVF for now, but if to remain NPO for an extended period of time would consider slow maintenance fluids (6) Asymptomatic bacteriuria: Plan: - UA positive for blood, LE, bacteria - chronic indwelling suprapubic catheter - without signs of acute infection at present- afebrile, no leukocytosis - f/u urine culture (7) Anemia: Plan: - normocytic anemia - Hgb= 11.4; at baseline (-) Plan Chronic Stable Conditions: HTN: NPO- hold amlodipine; blood pressure well controlled at present HLD: NPO- hold statin Hx of Rectal Cancer: has ostomy/suprapubic catheter CKD Stage 4: follows with nephrology, creatinine at baseline History of Present Illness Primary Care Provider: Bisi Rhodes 82 year old male with a past medical history of CKD stage 4, Rectal cancer with colostomy, anemia, HFpEF, DM2, afib on Eliquis, chronic indwelling suprapubic catheter presenting after fall. States that he was getting up to go to the bathroom this evening. Was on his way into the living room to turn on the fireplace and put his slippers on when he fell. Lives alone in assisted living. Has life alert button, but took him about an hour to get it to activate. At present only complaint is pain in right hip. Pt states that there is no family that he would like to be called and specifically states to not call his son. ED Course Significant for: CBC with hgb= 11.4 (baseline 11-12), CMP with creatine= 2.18 (BL 2.3-2.7), CK= 28. CXR with perihilar congestion, Head CT without acute fracture, old ischemic changes, XR Hip with Displaced intertrocha nteric fracture of the right femur. CT cervical spine without acute pathology. EKG with afib HR=80, nonspecific T wave changes- no acute ischemic changes. Allergies Allergy/AdvReac Type Severity Reaction Status Date / Time atorvastatin [From Lipitor] Allergy Unknown Verified 03/22/24 13:32 Home Medications Medication Instructions Recorded Confirmed Type ferrous sulfate 325 mg (65 mg 325 mg PO QAM 02/24/18 03/22/24 History iron) tablet rosuvastatin 10 mg tablet 10 mg PO HS 02/24/18 03/22/24 History cyanocobalamin (vitamin B-12) 1,000 mcg PO DAILY 12/19/19 03/22/24 History 1,000 mcg tablet (Vitamin B-12) cholecalciferol (vitamin D3) 25 2,000 unit PO DAILY #180 tabs 04/25/20 03/22/24 Rx mcg (1,000 unit) tablet (Vitamin D3) trospium 60 mg capsule,extended 60 mg PO DAILYBB 04/18/23 03/22/24 History release 24 hr sitagliptin phosphate 50 mg tablet 50 mg PO DAILY 09/27/23 03/22/24 History (Januvia) docusate sodium 100 mg capsule 100 mg PO BID 10/13/23 03/22/24 History (Colace) insulin glargine 100 unit/mL (3 5 unit subcut PM 10/19/23 03/22/24 History mL) subcutaneous pen (Basaglar KwikPen U-100 Insulin) amlodipine 2.5 mg tablet 2.5 mg PO DAILY 10/22/23 03/22/24 History omeprazole 20 mg capsule,delayed 20 mg PO DAILY 10/22/23 03/22/24 History release insulin aspart U-100 100 unit/mL 1 sliding scale dose SC ACHS #10 mL 10/26/23 03/22/24 Rx subcutaneous solution (Novolog U-100 Insulin aspart) ondansetron HCl 4 mg tablet 4 mg PO Q8H PRN NAUSEA/VOMITING 11/07/23 03/22/24 History vibegron 75 mg tablet (Gemtesa) 75 mg PO DAILY 12/02/23 03/22/24 History apixaban 2.5 mg tablet (Eliquis) 2.5 mg PO BID #180 tabs 01/02/24 03/22/24 Rx fosfomycin tromethamine 3 gram 1 packet PO Q OTHER DAY 3 doses #3 01/24/24 03/22/24 Rx oral packet ea Past Med/Surg History Problem List (Updated 04/24/24 @ 17:38 by Michael Butler MD) Colostomy status Suprapubic catheter History of rectal cancer Pathological fracture of hip due to age-related osteoporosis Asymptomatic bacteriuria Anticoagulated (Acute) Laceration of scalp (Acute) CHI (closed head injury) (Acute) Fall (Acute) Closed right hip fracture (Acute) Colostomy care (Acute) Elevated troponin High anion gap metabolic acidosis Heart failure with reduced ejection fraction Atrial fibrillation Acute CVA (cerebrovascular accident) (Acute) Leucocytosis (Acute) Non-ST elevation VT (NSTEMI) (Acute) Acute confusion (Acute) Generalized weakness (Acute) Chronic kidney disease, stage 4 (severe) Pericardial effusion Cardiomegaly (Acute) Edema of right lower extremity (Acute) Rib pain (Acute) New onset atrial fibrillation (Acute) Fall (Acute) Food impaction of esophagus Esophageal abnormality (Acute) Vomiting (Acute) Acute kidney injury Skin lesion History of urinary retention Benign prostatic hyperplasia with urinary obstruction and other lower urinary tract symptoms (Acute) DM (diabetes mellitus), type 2 (Acute) Hyperlipidemia (Acute) Hypertension (Acute) Urinary retention (Acute) Anemia Vitamin D deficiency Diabetes Diarrhea Obstructive uropathy (Chronic) Pre-syncope Rectal cancer (Chronic 06/17/17) "Rectal bleeding Status post colonoscopy and biopsy 06/17/2017 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 Plan for combined radiation and chemotherapy followed by possible resection Status post completion of combined radiation and chemotherapy August 30, 2017." On 07/07/17 13:09 Felicia Hannon wrote "Rectal bleeding Status post colonoscopy and biopsy 06/17/2017 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 Plan for combined radiation and chemotherapy followed by possible resection" Medical History (HFpEF) heart failure with preserved ejection fraction Anticoagulant long-term use Recent cerebrovascular accident (CVA) Suprapubic catheter Jewell UTI 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 Family History Other Family history non-contributory Social History Smoking Status: Never smoker Do You Dip or Chew Tobacco: No; Hx Alcohol Use: Yes Alcohol type: hard liquor Hx Substance Use: No Preferred Language: Yemeni Communication Ability: Effective Visual Impairment: No Limitations 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: Normal Engineer Systems Required: No Beliefs That Will Affect Care: None marital status: / Current Living Situation: Alone Current Living Situation Comment: home alone with CNAs throughout the day current occupational status: retired Other Information That Helps Us Care for You: No Feels Safe at Home: Yes Safety Concerns: Feels Safe At This Time Assistive Devices: Glasses and Walker Review of Systems Review of Systems: As per above Physical Exam Physical Exam: Constitutional: well-appearing, no acute distress HEENT: NCAT, no conjunctival injection CV: regular rhythm, no murmur appreciated, extremities well-perfused, no LE edema Resp: CTABL, no wheezes/rales/rhonchi appreciated, no increased work of breathing GI: soft, nondistended, nontender +ostomy, +suprapubic catheter MSK: right leg externally rotated, foot with +2 pulses and well perfused Skin: warm, dry, no rash appreciated Neuro: alert, oriented, no focal neurologic deficit appreciated Results & Data Results & Data Vital Signs (Past 12 Hours) Vital Signs Temp Pulse Resp BP Pulse Ox O2 Del Method 04/24/24 05:00 77 20 140/89 97 Room Air 04/24/24 04:30 84 16 126/92 97 04/24/24 04:09 78 24 148/95 H 99 04/24/24 03:58 100 Room Air 04/24/24 03:52 Room Air 04/24/24 03:34 36.7 C 82 20 169/90 H 100 Room Air 04/24/24 03:32 89 Supervising Physician Co-Signing Physician Notes Attending addendum: I have physically seen this patient, have supervised the medical residents activities, and agree with the H&P unless as otherwise noted. Assessment and Plan: Closed right hip fracture- N.p.o. after midnight Acetaminophen 1 g IV every 8 hours as needed for mild pain or fever Dilaudid 0.25 mg IV every 3 hours as needed for moderate pain Dilaudid 0.5 mg IV every 3 hours as needed for severe pain Consult orthopedic surgery Atrial fibrillation on chronic anticoagulation- Hold Eliquis Last dose was yesterday evening Diabetes mellitus- Hold Januvia Glargine 5 mg daily Placed on Accu-Cheks with NovoLog SSI Hypertension/HFpEF- Hold amlodipine Most recent echocardiogram 01/13 with ejection fraction 55-60% Holding on IV fluids for now as noted Follow-up clinical examination Remaining orders and notations as noted Resident Activity Tracking Resident Involvement: Resident Care Provided Care Provided: Adult Hospital Medicine
[2024-04-24 07:11] LABS: iSTAT Creatinine 2.4 mg/dl (0.6-1.3); iSTAT Hemoglobin 11.6 g/dl (14.0-18.0); iSTAT Ionized Calcium 1.25 mmol/l (1.12-1.32); iSTAT Potassium 4.3 mmol/L (3.3-5.0)
[2024-04-24 07:11] LABS: iSTAT Arterial Blood Gas HCO3 20 meg/L (19-24); iSTAT Arterial Blood Gas pCO2 37 mmHg (35-46); iSTAT Arterial Blood Gas pH 7.35 (7.35-7.45); iSTAT Arterial Blood Gas pO2 31 mmHg (80-95); iSTAT Carbon Dioxide 21 mmol/L (24-31); iSTAT Hematocrit 33 % (42-52); iSTAT Hemoglobin 11.2 g/dl (14.0-18.0); iSTAT Potassium 4.3 mmol/L (3.3-5.0); iSTAT Sample Type VEN; iSTAT Sodium 139 mmol/L (135-144)
--- NOTE | 2024-04-24 08:07 | Anesthesiology Consultation ---
Date of Service April 24, 2024 Assessment & Plan Chart Review Chart Review: Acceptable Risk for Surgery and Patient NOT seen in Pre Admission Testing pt bg is 345. they have several hours to improve bg and a SSI has been ordered for patient History Surgery Operation Date: 04/24/24 14:20 Proposed Procedures p Right Long Troch Nail - Mukesh Cali MD Height/Weight Height: 5 ft 9 in Weight: 79.3 kg Allergies Allergy/AdvReac Type Severity Reaction Status Date / Time atorvastatin [From Lipitor] Allergy Unknown Verified 03/22/24 13:32 Medications Home Medications Medication Instructions Recorded Confirmed Last Taken ferrous sulfate 325 mg (65 mg 325 mg PO QAM 02/24/18 03/22/24 12/02/23 iron) tablet rosuvastatin 10 mg tablet 10 mg PO HS 02/24/18 03/22/24 12/01/23 cyanocobalamin (vitamin B-12) 1,000 mcg PO DAILY 12/19/19 03/22/24 12/02/23 1,000 mcg tablet (Vitamin B-12) cholecalciferol (vitamin D3) 25 2,000 unit PO DAILY #180 tabs 04/25/20 03/22/24 12/02/23 mcg (1,000 unit) tablet (Vitamin D3) trospium 60 mg capsule,extended 60 mg PO DAILYBB 04/18/23 03/22/24 12/02/23 release 24 hr sitagliptin phosphate 50 mg tablet 50 mg PO DAILY 09/27/23 03/22/24 12/02/23 (Januvia) docusate sodium 100 mg capsule 100 mg PO BID 10/13/23 03/22/24 12/02/23 08:00 (Colace) insulin glargine 100 unit/mL (3 5 unit subcut PM 10/19/23 03/22/24 12/01/23 mL) subcutaneous pen (Basaglar KwikPen U-100 Insulin) amlodipine 2.5 mg tablet 2.5 mg PO DAILY 10/22/23 03/22/24 12/02/23 omeprazole 20 mg capsule,delayed 20 mg PO DAILY 10/22/23 03/22/24 12/02/23 release insulin aspart U-100 100 unit/mL 1 sliding scale dose SC ACHS #10 mL 10/26/23 03/22/24 12/02/23 subcutaneous solution (Novolog U-100 Insulin aspart) ondansetron HCl 4 mg tablet 4 mg PO Q8H PRN NAUSEA/VOMITING 11/07/23 03/22/24 Unknown vibegron 75 mg tablet (Gemtesa) 75 mg PO DAILY 12/02/23 03/22/24 12/02/23 apixaban 2.5 mg tablet (Eliquis) 2.5 mg PO BID #180 tabs 01/02/24 03/22/24 Unknown fosfomycin tromethamine 3 gram 1 packet PO Q OTHER DAY 3 doses #3 01/24/24 03/22/24 Unknown oral packet ea Active Medications Generic Name Dose Route Start Last Admin Trade Name Freq PRN Reason Stop Dose Admin Hydromorphone HCl 0.25 mg 04/24/24 03:53 04/24/24 06:39 Hydromorphone Inj 0.5 Mg/0.5 Ml Syr IV 05/08/24 03:52 0.25 mg Q15M PRN Administration Pain Past Medical History Medical History (HFpEF) heart failure with preserved ejection fraction Anticoagulant long-term use Recent cerebrovascular accident (CVA) Suprapubic catheter Jewell UTI 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 Past Family History Family History Other Family history non-contributory Social History Smoking Status: Never smoker Do You Dip or Chew Tobacco: No Hx Alcohol Use: No Hx Substance Use: No substance use type: does not use Physical Exam Vital Signs Last Vital Signs Temp 36.5 C 04/24/24 07:02 Pulse 72 04/24/24 07:02 Resp 18 04/24/24 07:02 BP 149/98 H 04/24/24 07:02 Pulse Ox 100 04/24/24 07:02 O2 Del Method Room Air 04/24/24 07:02 Testing Laboratory Results 04/24/24 03:45 04/24/24 03:45 PT 11.3 Seconds (9.0-12.0) 04/24/24 03:45 INR 1.0 (0.9-1.1) 04/24/24 03:45 APTT 29 Seconds (21-31) 04/24/24 03:45 Urine Color Yellow 04/24/24 04:20 Urine Appearance Cloudy (Clear) A 04/24/24 04:20 Urine pH 5.0 (4.5-7.5) 04/24/24 04:20 Ur Specific [place] 1.015 (1.000-1.030) 04/24/24 04:20 Urine Protein 3+ (Negative) H 04/24/24 04:20 Urine Glucose (UA) 2+ (Negative) H 04/24/24 04:20 Urine Ketones Negative (Negative) 04/24/24 04:20 Urine Nitrite Negative (Negative) 04/24/24 04:20 Ur Leukocyte Esterase 2+ (Negative) H 04/24/24 04:20 Urine WBC (Auto) >50 /hpf (0-5) H 04/24/24 04:20 Urine RBC (Auto) 0-2 /hpf (0-2) 04/24/24 04:20 U Hyaline Cast (Auto) 6-10 /lpf (0-2) H 04/24/24 04:20 U Epithel Cells (Auto) 0-2 /hpf (0-2) 04/24/24 04:20 Urine Bacteria (Auto) 4+ (None Seen) H 04/24/24 04:20 04/24/24 03:58 POC Glucose (other) 333 H
[2024-04-24] MEDS ORDERED: GLUCOSE 40% GEL 15 GM TUBE PO PRN (08:26)
[2024-04-24] MEDS ORDERED: NALOXONE HCL 0.4 MG/1 ML VIAL/CARP IV PRN (08:26)
[2024-04-24] MEDS ORDERED: CARBOHYDRATES FOR HYPOGLYCEMIA PO PRN (08:26)
[2024-04-24] MEDS ORDERED: GLUCOSE 10 TAB/TUBE PO PRN (08:26)
[2024-04-24] MEDS ORDERED: DEXTROSE 50% 50 ML SYRINGE IV PRN (08:26)
[2024-04-24] MEDS ORDERED: GLUCAGON FOR INJ 1 MG VIAL SQ PRN (08:26)
[2024-04-24] MEDS: INSULIN ASPART PER UNIT CHARGE SC SCH (08:44)
[2024-04-24] MEDS: LANTUS PER UNIT CHARGE SQ SCH (08:44)
[2024-04-24] MEDS: ACETAMINOPHEN 1,000 MG/100 ML VIAL IV PRN (08:45)
--- NOTE | 2024-04-24 08:58 | Orthopedic Consultation ---
Date of Service April 24, 2024 Assessment & Plan (1) Closed right hip fracture: NPO. Plan for trochanteric nailing of the right hip fx later today. Procedure explained to the patient. History of Present Illness Reason for Consultation: . Requesting Physician: . Attending Physician: Tate Rivera MD . 84 year old patient who lives alone but has a home health aid, was getting up during the night to turn on his fireplace and empty his catheter when he fell. Denies any pain in the hip prior to the fall. No other orthopedic complaints. He did have a scalp laceration and is on eliquis which is on hold. Allergies Allergy/AdvReac Type Severity Reaction Status Date / Time atorvastatin [From Lipitor] Allergy Unknown Verified 03/22/24 13:32 Home Medications Medication Instructions Recorded Confirmed Type ferrous sulfate 325 mg (65 mg 325 mg PO QAM 02/24/18 03/22/24 History iron) tablet rosuvastatin 10 mg tablet 10 mg PO HS 02/24/18 03/22/24 History cyanocobalamin (vitamin B-12) 1,000 mcg PO DAILY 12/19/19 03/22/24 History 1,000 mcg tablet (Vitamin B-12) cholecalciferol (vitamin D3) 25 2,000 unit PO DAILY #180 tabs 04/25/20 03/22/24 Rx mcg (1,000 unit) tablet (Vitamin D3) trospium 60 mg capsule,extended 60 mg PO DAILYBB 04/18/23 03/22/24 History release 24 hr sitagliptin phosphate 50 mg tablet 50 mg PO DAILY 09/27/23 03/22/24 History (Januvia) docusate sodium 100 mg capsule 100 mg PO BID 10/13/23 03/22/24 History (Colace) insulin glargine 100 unit/mL (3 5 unit subcut PM 10/19/23 03/22/24 History mL) subcutaneous pen (Basaglar KwikPen U-100 Insulin) amlodipine 2.5 mg tablet 2.5 mg PO DAILY 10/22/23 03/22/24 History omeprazole 20 mg capsule,delayed 20 mg PO DAILY 10/22/23 03/22/24 History release insulin aspart U-100 100 unit/mL 1 sliding scale dose SC ACHS #10 mL 10/26/23 03/22/24 Rx subcutaneous solution (Novolog U-100 Insulin aspart) ondansetron HCl 4 mg tablet 4 mg PO Q8H PRN NAUSEA/VOMITING 11/07/23 03/22/24 History vibegron 75 mg tablet (Gemtesa) 75 mg PO DAILY 12/02/23 03/22/24 History apixaban 2.5 mg tablet (Eliquis) 2.5 mg PO BID #180 tabs 01/02/24 03/22/24 Rx fosfomycin tromethamine 3 gram 1 packet PO Q OTHER DAY 3 doses #3 01/24/24 03/22/24 Rx oral packet ea Past Med/Surg History Problem List Asymptomatic bacteriuria Anticoagulated (Acute) Laceration of scalp (Acute) CHI (closed head injury) (Acute) Fall (Acute) Closed right hip fracture (Acute) Colostomy care (Acute) Elevated troponin High anion gap metabolic acidosis Heart failure with reduced ejection fraction Atrial fibrillation Acute CVA (cerebrovascular accident) (Acute) Leucocytosis (Acute) Non-ST elevation CO (NSTEMI) (Acute) Acute confusion (Acute) Generalized weakness (Acute) Chronic kidney disease, stage 4 (severe) Pericardial effusion Cardiomegaly (Acute) Edema of right lower extremity (Acute) Rib pain (Acute) New onset atrial fibrillation (Acute) Fall (Acute) Food impaction of esophagus Esophageal abnormality (Acute) Vomiting (Acute) Acute kidney injury Skin lesion History of urinary retention Benign prostatic hyperplasia with urinary obstruction and other lower urinary tract symptoms (Acute) DM (diabetes mellitus), type 2 (Acute) Hyperlipidemia (Acute) Hypertension (Acute) Urinary retention (Acute) Anemia Vitamin D deficiency Diabetes Diarrhea Obstructive uropathy (Chronic) Pre-syncope Rectal cancer (Chronic 06/17/17) "Rectal bleeding Status post colonoscopy and biopsy 06/17/2017 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 Plan for combined radiation and chemotherapy followed by possible resection Status post completion of combined radiation and chemotherapy August 30, 2017." On 07/07/17 13:09 Felicia Hannon wrote "Rectal bleeding Status post colonoscopy and biopsy 06/17/2017 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 Plan for combined radiation and chemotherapy followed by possible resection" Medical History (HFpEF) heart failure with preserved ejection fraction Anticoagulant long-term use Recent cerebrovascular accident (CVA) Suprapubic catheter Jewell UTI 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 Family History Other Family history non-contributory Social History Smoking Status: Never smoker Do You Dip or Chew Tobacco: No; Hx Alcohol Use: No Hx Substance Use: No Preferred Language: Panamanian Communication Ability: Effective Visual Impairment: No Limitations 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: Normal Slasher Operator Required: No Beliefs That Will Affect Care: None marital status: / Current Living Situation: Alone Current Living Situation Comment: home current occupational status: retired Feels Safe at Home: Yes Assistive Devices: Glasses and Walker Review of Systems All systems reviewed & are unremarkable except as noted in HPI & below. Physical Exam .Alert and oriented. NAD Right leg: shortened and externally rotated. Tender around the hip. Able to DF/PF. NVI Results & Data Results & Data Laboratory Results . Diagnostic Findings .xrays show a displaced comminuted right intertroch fx PG Care Time/CCT Total # of Minutes Spent Total Time Spent with Patient: Total time spent is greater than 50% in coordination of care (as documented) at patient's floor/unit and/or counseling patient: Coding Level of Care Code 67903 IN/OBS CONSULT LVL 4,60M Diagnoses Closed right hip fracture S72.001A
[2024-04-24] MEDS: LACTATED RINGER'S 1,000 ML IV SCH (12:49)
--- NOTE | 2024-04-24 14:06 | Electrocardiogram Report ---
Test Reason : Blood Pressure : */* mmHG Vent. Rate : 80 BPM Atrial Rate : * BPM P-R Int : * ms QRS Dur : 92 ms QT Int : 374 ms P-R-T Axes : * -19 70 degrees QTcB Int : 431 ms Atrial fibrillation with premature ventricular or aberrantly conducted complexes Nonspecific T wave abnormality Abnormal ECG When compared with ECG of 02-Dec-2023 15:17, Nonspecific T wave abnormality has replaced inverted T waves in Lateral leads Confirmed by Lloyd Clarke ([id number]) on 04/24/2024 2:05:53 PM Referred By: REFERRED SELF Confirmed By: Lloyd Clarke
--- NOTE | 2024-04-24 15:05 | History & Physical Bridge Note ---
Date of Service April 24, 2024 History & Physical Bridge Note I have examined the patient, reviewed the History & Physical and in the interval since the performance of the History & Physical I have noted the following changes of clinical significance: no changes noted
[2024-04-24] MEDS ORDERED: ATROPINE SULFATE 0.1 MG/ML 10ML SYR IV PRN (16:02)
[2024-04-24] MEDS ORDERED: fentaNYL citrate PF 100 MCG/2 ML VIAL ONE (16:02)
[2024-04-24] MEDS ORDERED: LIDOCAINE 2% 20 MG/ML 5 ML SYR IV ONE (16:02)
[2024-04-24] MEDS ORDERED: ONDANSETRON INJ 2 MG/ML 2 ML VIAL IV PRN (16:02)
[2024-04-24] MEDS ORDERED: ROCURONIUM BROMIDE 10 MG/ML 5 ML VIAL IV ONE (16:02)
[2024-04-24] MEDS ORDERED: PROPOFOL IV EMULSION 10 MG/ML 20 ML VIAL IV ONE (16:02)
[2024-04-24] MEDS ORDERED: ePHEDrine sulfate 50 MG/ML AMP IV PRN (16:02)
--- NOTE | 2024-04-24 16:37 | History & Physical Bridge Note ---
Date of Service April 24, 2024 History & Physical Bridge Note I have examined the patient, reviewed the History & Physical and in the interval since the performance of the History & Physical I have noted the following changes of clinical significance: no changes noted. Agree with consultation note by Gilmer Medel PA-C and plan developed by Dr. Cali. I explained to the patient that I can perform the surgery. I explained the risks, benefits, and alternatives. Trochanteric fixation nail is recommended. Informed consent was performed and documented by me - RIGHT HIP FRACTURE CLOSED REDUCTION AND INTERNAL FIXATION with trochanteric fixation nail.
[2024-04-24] MEDS: ceFAZolin 2000MG 2,000 MG/15 ML SYR IV ONE (17:00)
--- NOTE | 2024-04-24 17:38 | Hospitalist Progress Note ---
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-related osteoporosis: (3) Asymptomatic bacteriuria: Plan: no recent symptoms of UTI no fevers WBC count wnl no Rx at this time (4) Laceration of scalp: Plan: s/p staple repair in the ER needs alexis removed 7 days (5) Atrial fibrillation: Plan: permanent HOLD Eliquis due to need for ORIF of #1 (6) Chronic kidney disease, stage 4 (severe): Plan: baseline CrCl 20s repeat BMP am (7) DM (diabetes mellitus), type 2: Plan: a1c 7.5% in September 2023 repeat in am cont lantus cont novolog BSGs ac/hs hold PO meds (8) History of rectal cancer: Plan: 2018 s/p chemo & XRT s/p colostomy formation (9) Suprapubic catheter: Plan: no issues at this time (10) Colostomy status: Plan: no issues at this time Plan will ultimately need PT/OT etc Admission and Anticipated Discharge Date Admission Date: April 24, 2024 Subjective saw patient on AM rounds he reported minimal pain in the right hip but c/o "not being able to sleep" denied any dyspnea, chest pain or abd pain had recent skin biopsies by dermatology (face) Review of Systems Review of Systems: tele - a.fib Physical Exam Physical Exam: gen - lying flat in bed, looks tired mouth - MM dry neck - no JVD heart - irregularly irregular, s1 s2 lungs - CTA b/l abd - soft NT ND BS+; ostomy bag in place right abdomen; SP cath low abdomen in the midline musculo - right hip with significant deformity & swelling extremities - pulses b/l feet 2+ skin - right scalp with laceration, alexis intact; multiple band-aids in place from recent derm biopsies on face Results & Data Results & Data Vital Signs (Past 12 Hours) Vital Signs Temp Pulse Pulse Pulse Resp BP BP 04/24/24 15:00 73 04/24/24 11:51 36.3 C L 62 18 04/24/24 10:06 36.5 C 71 16 04/24/24 10:06 04/24/24 08:28 73 04/24/24 08:28 84 04/24/24 08:14 70 18 182/63 H 04/24/24 07:02 36.5 C 72 18 149/98 H 04/24/24 07:01 80 18 04/24/24 06:00 75 20 130/84 BP Pulse Ox Pulse Ox O2 Del Method O2 Del Method O2 Flow Rate 04/24/24 15:00 04/24/24 11:51 149/70 H 98 Room Air 04/24/24 10:06 151/82 H 99 Room Air 04/24/24 10:06 99 Room Air 0 04/24/24 08:28 04/24/24 08:28 04/24/24 08:14 100 Room Air 04/24/24 07:02 100 Room Air 04/24/24 07:01 100 Room Air 04/24/24 06:00 99 Room Air Laboratory Results Laboratory Results - last 24 hr 04/24/24 04/24/24 04/24/24 03:45 03:53 03:58 WBC 8.61 RBC 4.10 L Hgb 11.4 L POC Hgb 11.2 L 11.6 L Hct 35.2 L POC Hct 33 L 34 L MCV 85.9 MCH 27.8 MCHC 32.4 RDW Std Deviation 45.7 RDW Coeff of [place] 14.6 H Plt Count 249 MPV 9.8 Immature Gran % (Auto) 0.6 Neut % (Auto) 84.3 Lymph % (Auto) 7.8 [place] % (Auto) 5.6 Eos % (Auto) 1.4 Baso % (Auto) 0.3 Neut # (Auto) 7.26 H Lymph # (Auto) 0.67 L [place] # (Auto) 0.48 Eos # (Auto) 0.12 Baso # (Auto) 0.03 Immature Gran # (Auto) 0.05 PT 11.3 INR 1.0 APTT 29 PTT Ratio 1.1 Specimen Type JAE POC pH 7.35 POC pCO2 37 POC pO2 31 L POC HCO3 20 POC Total CO2 21 L 18 L POC Base Excess -6.0 POC ABG O2 Sat 56.0 L POC Sodium 139 139 Sodium 137 POC Potassium 4.3 4.3 Potassium 4.3 POC Chloride 110 Chloride 109 H Carbon Dioxide 19 L Anion Gap 9 POC Anion Gap 16.0 POC BUN 57 H BUN 59 H Creatinine 2.38 H POC Creatinine 2.4 H Est Cr Clr Drug Dosing 23.1 eGFR 26.22 BUN/Creatinine Ratio 24.8 H Glucose 345 H* POC Glucose POC Glucose (other) 333 H Calcium 8.9 POC Ioniz Calcium Luis 1.25 Total Bilirubin 0.3 AST 26 ALT 19 Alkaline Phosphatase 101 Total Creatine Kinase 28 L Troponin I High Sens 15.4 Total Protein 6.7 Albumin 3.3 L Globulin 3.4 Albumin/Globulin Ratio 1.0 Lipase 32 Urine Color Urine Appearance Urine pH Ur Specific [place] Urine Protein Urine Glucose (UA) Urine Ketones Urine Blood Urine Nitrite Urine Bilirubin Urine Urobilinogen Ur Leukocyte Esterase Urine WBC (Auto) Urine RBC (Auto) U Hyaline Cast (Auto) U Epithel Cells (Auto) Urine Bacteria (Auto) 04/24/24 04/24/24 04/24/24 04:20 08:22 08:23 WBC RBC Hgb POC Hgb Hct POC Hct MCV MCH MCHC RDW Std Deviation RDW Coeff of [place] Plt Count MPV Immature Gran % (Auto) Neut % (Auto) Lymph % (Auto) [place] % (Auto) Eos % (Auto) Baso % (Auto) Neut # (Auto) Lymph # (Auto) [place] # (Auto) Eos # (Auto) Baso # (Auto) Immature Gran # (Auto) PT INR APTT PTT Ratio Specimen Type POC pH POC pCO2 POC pO2 POC HCO3 POC Total CO2 POC Base Excess POC ABG O2 Sat POC Sodium Sodium POC Potassium Potassium POC Chloride Chloride Carbon Dioxide Anion Gap POC Anion Gap POC BUN BUN Creatinine POC Creatinine Est Cr Clr Drug Dosing eGFR BUN/Creatinine Ratio Glucose POC Glucose 319 H* 329 H* POC Glucose (other) Calcium POC Ioniz Calcium Luis Total Bilirubin AST ALT Alkaline Phosphatase Total Creatine Kinase Troponin I High Sens Total Protein Albumin Globulin Albumin/Globulin Ratio Lipase Urine Color Yellow Urine Appearance Cloudy A Urine pH 5.0 Ur Specific [place] 1.015 Urine Protein 3+ H Urine Glucose (UA) 2+ H Urine Ketones Negative Urine Blood 1+ H Urine Nitrite Negative Urine Bilirubin Negative Urine Urobilinogen Negative Ur Leukocyte Esterase 2+ H Urine WBC (Auto) >50 H Urine RBC (Auto) 0-2 U Hyaline Cast (Auto) 6-10 H U Epithel Cells (Auto) 0-2 Urine Bacteria (Auto) 4+ H 04/24/24 04/24/24 12:35 15:59 WBC RBC Hgb POC Hgb Hct POC Hct MCV MCH MCHC RDW Std Deviation RDW Coeff of [place] Plt Count MPV Immature Gran % (Auto) Neut % (Auto) Lymph % (Auto) [place] % (Auto) Eos % (Auto) Baso % (Auto) Neut # (Auto) Lymph # (Auto) [place] # (Auto) Eos # (Auto) Baso # (Auto) Immature Gran # (Auto) PT INR APTT PTT Ratio Specimen Type POC pH POC pCO2 POC pO2 POC HCO3 POC Total CO2 POC Base Excess POC ABG O2 Sat POC Sodium Sodium POC Potassium Potassium POC Chloride Chloride Carbon Dioxide Anion Gap POC Anion Gap POC BUN BUN Creatinine POC Creatinine Est Cr Clr Drug Dosing eGFR BUN/Creatinine Ratio Glucose POC Glucose 251 H 143 H POC Glucose (other) Calcium POC Ioniz Calcium [place] Total Bilirubin AST ALT Alkaline Phosphatase Total Creatine Kinase Troponin I High Sens Total Protein Albumin Globulin Albumin/Globulin Ratio Lipase Urine Color Urine Appearance Urine pH Ur Specific [place] Urine Protein Urine Glucose (UA) Urine Ketones Urine Blood Urine Nitrite Urine Bilirubin Urine Urobilinogen Ur Leukocyte Esterase Urine WBC (Auto) Urine RBC (Auto) U Hyaline Cast (Auto) U Epithel Cells (Auto) Urine Bacteria (Auto) PG Care Time/CCT Total # of Minutes Spent Total Time Spent with Patient: Total time spent is greater than 50% in coordination of care (as documented) at patient's floor/unit and/or counseling patient: Coding Level of Care Code None Diagnoses Closed right hip fracture S72.001A 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
[2024-04-24] MEDS: ceFAZolin 2,000 MG/15 ML IV PUSH IV ONE (18:04)
[2024-04-24] MEDS: BUPIVACAINE/EPINEPHRINE 0.5% MPF 1:200,000 30 ML VIAL ONE (18:18)
[2024-04-24] MEDS ORDERED: SUGAMMADEX SODIUM 200 MG/2 ML VIAL IV ONE (18:19)
--- NOTE | 2024-04-24 18:40 | Operative Report ---
PG Post Operative Report Pre & Post Diagnosis Operation Date: 04/24/24 14:20 Pre-Op Diagnosis: Closed right hip fracture Post-Op Diagnosis: Closed right hip intertrochanteric fracture I identified the patient and participated in the time-out.: Yes Procedure Operation Date: 04/24/24 14:20 Actual Procedures p Right Hip intertrochanteric fracture Closed Reduction and Internal Fixation with long cephalomedullary nail (Right) - Alli Falk MD Surgeon Alli Falk MD Primary Counselor Manda Gamble PA-C Estimated Blood Loss 150 Findings See Below All Synthes implants: 11 mm/130 degree titanium cannulated trochanteric fixation nail of 400 mm length. 11.0 mm titanium helical blade of 110 mm length. Distal interlock screw measuring 52 mm. Specimens none Anesthesia Type MAC Spinal Regional Complications none Disposition Accompanied Patient To Recovery: No Disposition: Recovery Room Indications 84-year-old male admitted after a fall at home with a right intertrochanteric femur fracture. Orthopedics was consulted for definitive management. I explained the diagnosis, prognosis, and treatment options. My recommendation was to perform an cephalomedullary nail fixation as soon as medically reasonable. He was cleared by anesthesia. I reviewed the risk, benefits and alternatives to surgical fixation. The risks included, but were not limited to, infection, nerve or vessel injury, blood loss requiring transfusion, arthrosis of the hip, symptomatic implants, failure of implants, need for secondary surgery, nonunion, malunion, leg length discrepancy, pain syndromes, blood clots, and complications related to anesthesia. He asked appropriate questions, demonstrated a good understanding, and was agreeable to proceed with the recommended surgical treatment. Informed consent was obtained in the preoperative holding area. Description of Procedure On the day of surgery should be was greeted in the preoperative holding area and the informed consent was reviewed and confirmed. The surgical site was then identified by the patient and signed by myself. The patient was taken to the operating placed by the OR table and anesthesia was induced. The patient is then positioned on the fracture table. All kraig prominences were well padded. The operative foot was placed in the fracture boot with abundant padding. The well leg was secured. We then positioned the lower extremities in a scissor fashion with a non-op leg flexed down to allow visualization with fluoroscopy which was confirmed before we prepped and draped. Surgical timeout was called and verified by all present. Antibiotics were infused, and equipment was available and functional. The procedure was initiated with a closed reduction maneuver. Gentle in-line traction pulled the fracture out to length. The limb was then internally rotated to reduce the proximal femur. Flexion and adduction were used to adjust the reduction and allow access to the greater trochanter. We had adequate reduction prior to prepping and draping. The leg was then prepped and draped in usual sterile fashion. Surgical timeout was reconfirmed. We initiated the surgical internal fixation portion with finding the start point with the tip of the greater trochanter. Fluoroscopic guidance was used and a small poke hole was established. The start point was confirmed on fluoroscopy in AP and lateral planes and the pin was advanced using a mallet. An incision was made about the pin to allow access for the reamers and jig. The pin was then advanced past the lesser trochanter, and its position was confirmed using AP and lateral fluoroscopy. Using the protective sleeve, the opening reamer was advanced under power with fluoroscopic guidance over the guidepin. It was advanced slowly and we did ream out some lateral bone of the trochanter. The physician purchasing administrative assistant was essential to place dorsal and medial pressure on the femoral shaft proximal shaft to reduce the fracture from the opening reamer and subsequent reamer. The reduction wire was then advanced down the distal femur to the level of the superior pole of the patella. Measurement was taken from the tip of the trochanter down to the end of the guidewire, and the 11 mm was selected. The 12.5 mm reamer was used to open up the diaphysis. An 11 mm nail was loaded onto the jig and advanced manually down the canal, while ensuring maintenance of the reduction on fluoroscopy. We then tapped it down into place until we achieve the good position for our cephalo-medullary screw. The cannula was placed on the jig to allow positioning of the cephalo-medullary screw. The skin incision was made in the appropriate spot. The jig cannulas were then placed against the lateral cortex. The cephalo-medullary screw guidepin was advanced towards the femoral head. The center-center position was confirmed on fluoroscopy in AP and lateral planes. The length of the screw was measured off the guide. The helical blade screw was then opened on the back table and prepared on the screwdriver. The lateral cortical opening drill, followed by the triple drill reamer for the helical blade was advanced under fluoroscopic guidance. The helical blade was advanced over the guidepin to appropriate position. The helical blade was locked in rotation and then the traction was taken off. Fluoroscopy confirmed maintenance of reduction and adequate position of the implant. Attention was then directed distally to perform the interlock screws in using perfect [place] technique. 1 interlock screw was placed with a 5 mm diameter. The length was measured using a depth gauge, with fluoroscopic guidance. This completed the fixation. This completed the fixation of the fracture. Fluoroscopy was used in both AP and lateral planes to evaluate the entirety of the fracture and implant. Reduction and implant positions were acceptable. The wounds were then thoroughly irrigated with bulb syringe and normal saline. The deep fascial layer was approximated with 0 Vicryl suture. The dermal layer was approximated using 2-0 Vicryl suture. The final skin closure was completed with alexis. Wounds were dressed with sterile Xeroform, sterile gauze, and [place] over ABDs. The patient tolerated procedure well, awoke from anesthesia without complication, was extubated in the operating room, and transferred to the PACU in stable condition. Disposition: The patient be weightbearing as tolerated. I recommended routine DVT prophylaxis consisting of aspirin 325 mg daily, if tolerable. DVT prophylaxis should last 6 weeks. 24 hours of antibiotic prophylaxis should be continued. Physician purchasing administrative assistant attestation: Manda Gamble PA-C was present and scrubbed for the duration of the case. He was essential to prepping/draping, patient positioning, retraction, and assistance with wound closure. I attest to the content of the Intraoperative Record and any orders documented therein. Any exceptions are noted below.
[2024-04-24] MEDS: fentaNYL citrate PF 100 MCG/2 ML VIAL IV PRN (19:10)
--- NOTE | 2024-04-24 19:57 | XRay Report ---
INDICATION: Pain TECHNIQUE: 2 views of the right femur were obtained. COMPARISON: None FINDINGS: Status post intramedullary mony and screw stabilization of the right intertrochanteric region femoral fracture. There is a displaced lesser trochanter femur fragment seen medially. Expected postsurgical changes of the soft tissues. IMPRESSION: Status post intramedullary mony and screw stabilization of the right intertrochanteric region femoral fracture. Electronically signed by Nick Cochran 04-24-2024 7:57 PM
--- NOTE | 2024-04-24 20:29 | Anesthesiology Progress Note ---
Date of Service April 24, 2024 Anesthesia Post Procedure Vital Signs Vital Signs: Temp Pulse Pulse Pulse Resp BP BP 04/24/24 20:21 36.5 C 82 20 04/24/24 19:30 36.5 C 88 18 141/73 H 04/24/24 19:20 90 20 162/81 H 04/24/24 19:10 78 20 146/77 H 04/24/24 19:00 89 16 129/83 04/24/24 18:49 36.4 C L 91 H 14 159/78 H 04/24/24 15:00 73 04/24/24 11:51 36.3 C L 62 18 04/24/24 10:06 36.5 C 71 16 04/24/24 10:06 04/24/24 08:28 73 04/24/24 08:28 84 04/24/24 08:14 70 18 182/63 H 04/24/24 07:02 36.5 C 72 18 149/98 H 04/24/24 07:01 80 18 04/24/24 06:00 75 20 130/84 04/24/24 05:30 69 18 144/106 H 04/24/24 05:00 77 20 140/89 04/24/24 04:30 84 16 126/92 04/24/24 04:09 78 24 148/95 H 04/24/24 03:58 04/24/24 03:52 04/24/24 03:34 36.7 C 82 20 169/90 H 04/24/24 03:32 89 BP Pulse Ox Pulse Ox O2 Del Method O2 Del Method O2 Flow Rate O2 Flow Rate 04/24/24 20:21 134/69 97 Room Air 04/24/24 19:30 99 Room Air 04/24/24 19:20 99 Room Air 04/24/24 19:10 100 Room Air 04/24/24 19:00 100 Oxymask 3 04/24/24 18:49 100 Oxymask 6 04/24/24 15:00 04/24/24 11:51 149/70 H 98 Room Air 04/24/24 10:06 151/82 H 99 Room Air 04/24/24 10:06 99 Room Air 0 04/24/24 08:28 04/24/24 08:28 04/24/24 08:14 100 Room Air 04/24/24 07:02 100 Room Air 04/24/24 07:01 100 Room Air 04/24/24 06:00 99 Room Air 04/24/24 05:30 98 04/24/24 05:00 97 Room Air 04/24/24 04:30 97 04/24/24 04:09 99 04/24/24 03:58 100 Room Air 04/24/24 03:52 Room Air 04/24/24 03:34 100 Room Air 04/24/24 03:32 Pain Intensity Right Hip: Pain Intensity: 5 Transfer of Care Handoff Completed per policy Notes Mental Status: alert / awake / arousable and participated in evaluation Patient Amnestic to Procedure: Yes Nausea / Vomiting: adequately controlled Pain: adequately controlled Airway Patency, RR, SpO2: stable & adequate BP & HR: stable & adequate Hydration State: stable & adequate Anesthetic Complications: no major complications apparent and Pt Satisfied with anesthetic care
--- NOTE | 2024-04-24 21:56 | Billing Data ---
Date of Service April 24, 2024 Coding Level of Care Code 84277 INT INP/OBS CARE
[2024-04-25] MEDS: ceFAZolin 2000MG 2,000 MG/15 ML SYR IV SCH (01:01)
--- NOTE | 2024-04-25 07:10 | Fluoroscopy Report ---
FL hip RT 2-3V CLINICAL HISTORY: RIGHT TROCH NAIL COMPARISON STUDY: Femur radiographs of same day FLUOROSCOPY TIME: 1 minute and 13.5 seconds FLUOROSCOPY IMAGES: 4 EXPOSURE DOSE: 7.2615 mGy FINDINGS: Intertrochanteric nail with medullary mony is noted fixating an acute proximal right femoral fracture deformity. The lesser trochanteric fracture fragment is displaced medially several millimet ers. Soft tissue swelling with expected deep tissue air at the surgical site. IMPRESSION: Fluoroscopic assistance was above. ACT 112: Negative or not required by law. Electronically signed by: Uday Becerra M.D. 04/25/2024 7:09 AM
[2024-04-25 07:30] LABS: Hematocrit (blood only) 27.3 % (42.0-52.0); Hemoglobin 8.9 g/dl (14.0-18.0); Mean Corpuscular Hgb Conc 32.6 g/dL (32.0-36.0); Mean Corpuscular Volume 85.8 fL (80.0-100.0); Mean Platelet Volume 10.2 fL (9.4-12.4); Platelet Count 212 K/uL (130-400); RDW Coefficient of Variation 14.6 % (11.5-14.5); RDW Standard Deviation 46.5 fL (36.4-46.3); Red Blood Count 3.18 M/uL (4.70-6.10); White Blood Count 10.57 K/ul (4.8-10.8)
[2024-04-25 07:48] LABS: BUN Creatinine Ratio 22.9 (10-20); Calcium 8.7 mg/dl (8.6-10.3); Creatinine Clr Calc Pharmacy 22.1 ml/min; Potassium 4.9 mmol/L (3.5-5.1)
--- NOTE | 2024-04-25 09:13 | Orthopedic Progress Note ---
Date of Service April 25, 2024 Assessment & Plan (1) Status post hip surgery: Operation Date: 04/24/24 14:20 Actual Procedures p Right Hip intertrochanteric fracture Closed Reduction and Internal Fixation with long cephalomedullary nail (Right) - Alli Falk MD Postop day 1 from surgery above. He can be weightbearing as tolerated and range of motion as tolerated with assistance with physical therapy and nursing. In regards to dressing, it can be changed on postop day 3. As long as he in the hospital, he should have the dressing covered but when he is discharged, it can be left open to air. Karla will come out as 2-week postop check. Please reach out any other questions or concerns. Subjective Operation Date: 04/24/24 14:20 Actual Procedures p Right Hip intertrochanteric fracture Closed Reduction and Internal Fixation with long cephalomedullary nail (Right) - Alli Falk MD Gian is an 84-year-old male who is postop day 1 from a right hip intertrochanteric fracture closed reduction internal fixation. He is doing well. He is resting comfortably in his hospital bed. He has not worked with physical therapy occupational therapy yet. States that his pain is under contro l at this time. No other questions or concerns. Review of Systems All systems reviewed & are unremarkable except as noted in HPI & below. Physical Exam General: Alert at today's visit. They are having a pleasant conversation. Right hip: Dressing check satisfactory. No saturation of the dressings. He is able to move his right knee but does have some discomfort. He has full range of motion of the right foot and ankle. Neurovascular intact. Results & Data Results & Data Laboratory Results . Diagnostic Findings . PG Care Time/CCT Total # of Minutes Spent Total Time Spent with Patient: Total time spent is greater than 50% in coordination of care (as documented) at patient's floor/unit and/or counseling patient: Coding Level of Care Code 62454 Post Operative Follow-Up Diagnoses Status post hip surgery Z98.890
[2024-04-25] MEDS: INSULIN ASPART PER UNIT CHARGE SC SCH (09:38)
[2024-04-25] MEDS: LANTUS PER UNIT CHARGE SQ SCH (09:39)
[2024-04-25] MEDS: APIXABAN 2.5 MG TAB PO SCH (19:30)
--- NOTE | 2024-04-25 19:41 | Hospitalist Progress Note ---
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-related osteoporosis: Plan: see #1 above (3) Acute blood loss anemia: Plan: Hb 11.4 at admission falling to 8.9 today 2nd to #1 above repeat H/H in am (4) Asymptomatic bacteriuria: Plan: no recent symptoms of UTI no fevers WBC count wnl no Rx at this time urine cx with contaminants only SP catheter in place - will always have some element of bacteriuria (5) Laceration of scalp: Plan: right scalp s/p staple repair in the ER needs alexis removed 7 days (6) Atrial fibrillation: Plan: permanent resume Eliquis 2.5mg BID tonight (7) Chronic kidney disease, stage 4 (severe): Plan: baseline CrCl 20s BMP today stable BMP in am (8) DM (diabetes mellitus), type 2: Plan: a1c 7.5% in September 2023 repeat in am BSGs uncontrolled increase lantus to 10 units daily adjust novolog BSGs ac/hs hold PO meds (9) History of rectal cancer: Plan: 2018 s/p chemo & XRT s/p colostomy formation add miralax/senna for bowel maintenance (10) Suprapubic catheter: Plan: no issues at this time resume Vibegron resume anticholinergic agent (oxybutinin BID) (11) Colostomy status: Plan: no issues at this time (12) History of stroke: Plan: 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 cont Eliquis for secondary prevention (13) Pericardial effusion with cardiac tamponade: Plan: traumatic - 09/2023 s/p pericardiocentesis with removal of 500cc+ of fluid at that time no issues since then Plan recent skin biopsies performed at [facility] - need to investigate when his sutures need to be removed appreciate PT/OT jamie Guy (lives in [place]) updated by phone 04/25/24 dispo - [facility] for rehab Admission and Anticipated Discharge Date Admission Date: April 24, 2024 Subjective tele - a.fib, rates <100 patient c/o right hip pain - worse with activity today he did work with PT/OT we talked briefly about rehab - stated he would only go to [facility] (does not want [facility] or any SNF) asked for his "lotions & potions" that apparently are in a grocery bag in the room?? asked for his bladder agents to be resumed denies pain in any other location denies dyspnea Review of Systems Review of Systems: CV - no orthopnea, no chest pain pulm - no dyspnea at rest GI - no N/V; little to no stool output from ostomy, just air skin - states he has a skin biopsy site on his back with sutures Physical Exam Physical Exam: gen - lying flat in bed, NAD mouth - MM again dry neck - no JVD heart - irregularly irregular, s1 s2, no rub, no murmur lungs - CTA b/l abd - soft NT ND BS+; ostomy bag in place right abdomen - just air filled, no stool; SP cath low abdomen in the midline musculo - right thigh with swelling; dressings intact lateral right hip and distal thigh extremities - pulses b/l feet 2+ skin - right scalp with laceration, alexis intact; multiple band-aids in place from recent derm biopsies on face Results & Data Results & Data Vital Signs (Past 12 Hours) Vital Signs Temp Pulse Pulse Resp BP Pulse Ox O2 Del Method 04/25/24 18:00 04/25/24 16:04 36.7 C 80 18 124/67 99 Room Air 04/25/24 16:00 83 04/25/24 14:00 04/25/24 12:15 36.5 C 81 18 138/77 99 Room Air 04/25/24 10:00 04/25/24 08:20 36.5 C 81 18 137/68 100 Room Air O2 Del Method 04/25/24 18:00 Room Air 04/25/24 16:04 04/25/24 16:00 04/25/24 14:00 Room Air 04/25/24 12:15 04/25/24 10:00 Room Air 04/25/24 08:20 Laboratory Results Laboratory Results - last 24 hr 04/25/24 04/25/24 04/25/24 06:50 08:52 11:47 WBC 10.57 RBC 3.18 L Hgb 8.9 L Hct 27.3 L MCV 85.8 MCH 28.0 MCHC 32.6 RDW Std Deviation 46.5 H RDW Coeff of [place]oteo 14.6 H Plt Count 212 MPV 10.2 Sodium 142 Potassium 4.9 Chloride 112 H Carbon Dioxide 22 Anion Gap 8 BUN 57 H Creatinine 2.49 H Est Cr Clr Drug Dosing 22.1 eGFR 24.83 BUN/Creatinine Ratio 22.9 H Glucose 205 H POC Glucose 215 H 259 H Calcium 8.7 04/25/24 17:12 WBC RBC Hgb Hct MCV MCH MCHC RDW Std Deviation RDW Coeff of [place]oteo Plt Count MPV Sodium Potassium Chloride Carbon Dioxide Anion Gap BUN Creatinine Est Cr Clr Drug Dosing eGFR BUN/Creatinine Ratio Glucose POC Glucose 171 H Calcium PG Care Time/CCT Total # of Minutes Spent Total Time Spent with Patient: Total time spent is greater than 50% in coordination of care (as documented) at patient's floor/unit and/or counseling patient: Coding Level of Care Code 24006 SUB INP/OBS CARE 3/50MIN Diagnoses Closed right hip fracture S72.001A 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
[2024-04-25] MEDS ORDERED: HYDROmorphone INJ 0.5 MG/0.5 ML SYR IV PRN (20:31)
[2024-04-25] MEDS: SENNA 8.6 MG TAB PO SCH (21:23)
[2024-04-25] MEDS: PANTOprazole 40 MG TAB PO STA (21:23)
[2024-04-25] MEDS: VIBEGRON 75 MG TAB PO SCH (21:23)
[2024-04-25] MEDS: POLYETHYLENE (MIRALAX) 17 GM PACK PO SCH (21:23)
[2024-04-25] MEDS: ROSUVASTATIN CALCIUM 10 MG TAB PO SCH (21:23)
[2024-04-25] MEDS: oxyBUTYnin chloride 5 MG TAB PO SCH (21:23)
[2024-04-26] MEDS: oxyCODONE HCL IR 5 MG TAB (IMMEDIATE RELEASE) PO PRN (07:43)
[2024-04-26] MEDS: PANTOprazole 40 MG TAB PO SCH (07:44)
[2024-04-26] MEDS: CHOLECALCIFEROL 25 MCG (1000 UNITS) TAB PO SCH (07:45)
[2024-04-26] MEDS: CYANOCOBALAMIN (B-12) 500 MCG TABLET PO SCH (07:45)
[2024-04-26] MEDS: ACETAMINOPHEN 500 MG TAB PO SCH (09:58)
[2024-04-26 11:07] LABS: Hemoglobin 7.7 g/dl (14.0-18.0)
[2024-04-26 11:37] LABS: BUN Creatinine Ratio 23.1 (10-20); Calcium 8.8 mg/dl (8.6-10.3); Creatinine Clr Calc Pharmacy 18.4 ml/min; Potassium 4.7 mmol/L (3.5-5.1)
--- NOTE | 2024-04-26 13:50 | Orthopedic Progress Note ---
Date of Service April 26, 2024 Assessment & Plan (1) Status post hip surgery: Plan Operation Date: 04/24/24 14:20 Actual Procedures p Right Hip intertrochanteric fracture Closed Reduction and Internal Fixation with long cephalomedullary nail (Right) - Alli Falk MD HIP Fx: 84-year-old male POD# 2 s/p closed reduction internal fixation of right hip intertrochanteric fracture with long IM nail and cannulated femoral head/neck compression screw. Plan: 1. DVT prophylaxis w/ home dose Eliquis -- 2.5 mg BID. 2. Con't PT/OT as tolerated. WBAT on RLE. 3. Pain relatively well-controlled continue current regimen. 4. Medical management as per the primary medicine service. 5. Dressing may be changed on POD#3; while inpatient, he should have the dressing covered, but when discharged, surgical wound can be left open to air. Plan for staple removal at 2-week postop check. 6. Disposition - plan is for placement to rehab or SNF; patient prefers [facility]. 7. Follow-up outpatient with Dr. Falk's team 2 weeks postop. Admission and Anticipated Discharge Date Admission Date: April 24, 2024 Subjective Operation Date: 04/24/24 14:20 Actual Procedures p Right Hip intertrochanteric fracture Closed Reduction and Internal Fixation with long cephalomedullary nail (Right) - Alli Falk MD POD#2 s/p right hip intertrochanteric fracture closed reduction internal fixation. He continues to do well overall. He says that he was up with therapy before I arrived, and he was able to basically put his normal amount of weight on the right lower extremity, which was painful for him, but he did tolerate doing so. Pain is certainly under control at rest. He has been in discussion with case management about placement, of which he prefers to go to [facility] rehab. Patient says that he will absolutely not go to [facility]. Physical Exam Physical Exam: GENERAL: AA&Ox3, NAD. Pleasant, affect is calm. Lying in bed and appears comfortable. RESPIRATORY: Normal respiratory effort with no signs of distress. CHEST/AXILLA: Chest movement symmetrical. No deformities noted. CARDIOVASCULAR: No edema noted. SKIN: [place], warm and dry. MS/EXTREMITY: Hip/thigh dressing c/d/i with no active drainage or saturation noted. Thigh is soft, supple. + ankle dorsi/plantarflexion. NVI distally. Calf soft/NT. PT/DP intact. Results & Data Vital Signs (Past 12 Hours) Vital Signs Temp Pulse Pulse Resp BP BP Pulse Ox 04/26/24 11:24 37.1 C 90 20 137/68 97 04/26/24 07:41 36.8 C 81 18 127/69 98 04/26/24 07:00 04/26/24 06:59 92 H 04/26/24 04:00 36.6 C 86 18 146/79 H 98 O2 Del Method 04/26/24 11:24 Room Air 04/26/24 07:41 Room Air 04/26/24 07:00 Room Air 04/26/24 06:59 04/26/24 04:00 Room Air
[2024-04-26] MEDS: SODIUM CHLORIDE 0.9% 1,000 ML IV SCH (18:18)
--- NOTE | 2024-04-26 19:10 | Hospitalist Progress Note ---
Date of Service April 26, 2024 Assessment & Plan (1) Closed right hip fracture: Plan: POD #2 s/p ORIF by Dr Alli Falk PT, OT; WBAT on RLE 25-OH vit D level earlier this year was wnl; defer recheck pain meds prn; oxycodone prn, dilaudid low-dose IV for refractory pain cont Eliquis 2.5mg BID cont tylenol 1gm TID scheduled needs rehab post-discharge (2) Pathological fracture of hip due to age-related osteoporosis: Plan: see #1 above (3) Acute kidney injury: Plan: baseline CrCl 20s baseline Creatinine 2's today 2.99 he appears volume contracted he has acute blood loss anemia thus, CLAYTON likely prerenal in etiology resume IV fluids repeat BMP am (4) Acute blood loss anemia: Plan: Hb 11.4 at admission falling to 7.7 today 2nd to #1 above repeat H/H in am if he drops below 7.5 will Tx PRBCs check Fe studies, folate, B12 (5) Asymptomatic bacteriuria: Plan: no recent symptoms of UTI no fevers WBC count wnl no Rx at this time urine cx with contaminants only SP catheter in place - will always have some element of bacteriuria (6) Laceration of scalp: Plan: right scalp s/p staple repair in the ER needs alexis removed 7 days (7) Atrial fibrillation: Plan: permanent cont Eliquis 2.5mg BID (8) Chronic kidney disease, stage 4 (severe): Plan: baseline CrCl 20s now with CLAYTON as above BMP in am (9) DM (diabetes mellitus), type 2: Plan: a1c 7.5% in September 2023 repeat in am BSGs improved s/p addition of lantus 10 units daily cont novolog BSGs ac/hs hold PO meds (10) History of rectal cancer: Plan: 2018 s/p chemo & XRT s/p colostomy formation cont miralax/senna for bowel maintenance (11) Suprapubic catheter: Plan: no issues at this time cont Vibegron cont anticholinergic agent (oxybutinin BID) (12) Colostomy status: Plan: no issues at this time (13) History of stroke: Plan: 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 cont Eliquis for secondary prevention (14) Pericardial effusion with cardiac tamponade: Plan: traumatic - 09/2023 s/p pericardiocentesis with removal of 500cc+ of fluid at that time no issues since then cytologies negative from the fluid then thought to be traumatic from a fall fluid was grossly bloody (15) S/P skin biopsy: Plan: right upper back punch bx - done at [facility] 1 suture present from that punch will need removal in 14 days multiple shave biopsies done to exclude SCC -- right scalp, left congregational, left preauricular (16) Failure to thrive: Plan: for several months has had poor appetite this has continued while here consider remeron or similar CT Chest 09/2023 with - "Several nodular opacities within the lower lobes and groundglass opacities, new since prior chest CT. These favor a mild infectious process although are indeterminate. A follow-up chest CT in 3 months to ensure resolution is recommended." Consider repeat CT CT a/p 09/2023 without any abnormalities to explain his failure to thrive he blames lack of taste as the cause of anorexia check a B1 and B12 along with folic acid level in am Plan appreciate PT/OT jamie son Brooks (lives in [place]) updated by phone 04/25/24 dispo - ideally [facility] for rehab - will not need auth Admission and Anticipated Discharge Date Admission Date: April 24, 2024 Subjective patient reports ongoing poor PO intake - both liquids and solids does report feeling thirsty denies any nausea or vomiting denies abd pain does state his appetite has been off for months very little to none stool output is passing flatus via the ostomy no issues with SP catheter his caregivers brought his creams from home first cream is triamcinolone cream 0.1% 2nd is bactroban 3rd is a butt paste I was able to review a recent dermatology note from [facility] he had multiple shave biopsies done of the face/neck a punch biopsy was performed from the upper back and closed with a suture the derm note mentions using TAC cream on trunk/ext's for itchy dermatitis also mentions using bactroban on his closed anus continues with right hip pain did work with PT/OT he was slightly confused during the visit today tele - a.fib, rates <100 Review of Systems Review of Systems: CV - no cp, no orthopnea pulm - no dyspnea GI - no abd pain Physical Exam Physical Exam: gen - lying flat in bed, NAD, talkative mouth - MM and lips dry neck - no JVD heart - irregularly irregular, s1 s2, no rub, no murmur lungs - CTA b/l abd - soft NT ND BS+; ostomy bag in place right abdomen - minimal amount stool with copious air; SP cath low abdomen in the midline; insertion site clean musculo - right thigh with swelling; dressings intact lateral right hip and distal thigh extremities - pulses b/l feet 2+ skin - right scalp with laceration, alexis intact; multiple band-aids in place from recent derm biopsies on face; there is no dermatitis noted on the arms or trunk; ecchymoses on arms from blood draws, etc Results & Data Results & Data Vital Signs (Past 12 Hours) Vital Signs Temp Pulse Pulse Resp BP Pulse Ox O2 Del Method 04/26/24 18:00 94 H 04/26/24 15:57 36.4 C L 76 20 136/72 100 Room Air 04/26/24 11:24 37.1 C 90 20 137/68 97 Room Air 04/26/24 07:41 36.8 C 81 18 127/69 98 Room Air Laboratory Results Laboratory Results - last 24 hr 04/25/24 04/26/24 04/26/24 20:00 07:42 10:40 Hgb 7.7 L Hct 24.0 L Sodium 140 Potassium 4.7 Chloride 110 H Carbon Dioxide 20 L Anion Gap 10 BUN 69 H Creatinine 2.99 H D Est Cr Clr Drug Dosing 18.4 eGFR 19.94 BUN/Creatinine Ratio 23.1 H Glucose 152 H POC Glucose 146 H 154 H Calcium 8.8 04/26/24 04/26/24 11:57 17:14 Hgb Hct Sodium Potassium Chloride Carbon Dioxide Anion Gap BUN Creatinine Est Cr Clr Drug Dosing eGFR BUN/Creatinine Ratio Glucose POC Glucose 172 H 222 H Calcium PG Care Time/CCT Total # of Minutes Spent Total Time Spent with Patient: Total time spent is greater than 50% in coordination of care (as documented) at patient's floor/unit and/or counseling patient: Coding Level of Care Code 43730 SUB INP/OBS CARE 3/50MIN Diagnoses Closed right hip fracture S72.001A 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
[2024-04-26] MEDS ORDERED: TRIAMCINOLONE ACET 0.1% CR 80 GM TUBE EXT PRN (19:16)
[2024-04-26] MEDS: MUPIROCIN 2% OINT 22 GM TUBE EXT SCH (20:42)
--- NOTE | 2024-04-27 19:42 | Hospitalist Progress Note ---
Date of Service April 27, 2024 Assessment & Plan (1) Closed right hip fracture: Plan: POD #3 s/p ORIF by Dr Alli Falk PT, OT; WBAT on RLE 25-OH vit D level earlier this year was wnl; defer recheck oxycodone prn, dilaudid low-dose IV for refractory pain cont Eliquis 2.5mg BID for DVT Proph cont tylenol 1gm TID scheduled needs rehab post-discharge -- pt wants [facility], no auth needed (2) Pathological fracture of hip due to age-related osteoporosis: Plan: see #1 above (3) Acute kidney injury: Plan: baseline CrCl 20s baseline Creatinine 2's Cr 2.99 on 04/26/24 I gave IV fluids yesterday/today as he was volume contracted he has acute blood loss anemia as well that likely contributed to CLAYTON thus, CLAYTON likely prerenal in etiology he refused labs today thus repeat Cr unknown he is eating/drinking better and looks more euvolemic today stop IV fluids agreeable to AM labs on 04/28 (4) Acute blood loss anemia: Plan: Hb 11.4 at admission falling to 7.7 2nd to #1 above if he drops below 7.5 will Tx PRBCs check Fe studies, folate, B12 with blood draw tomorrow am (5) Asymptomatic bacteriuria: Plan: no recent symptoms of UTI no fevers WBC count wnl no Rx at this time urine cx with contaminants only SP catheter in place - will always have some element of bacteriuria (6) Laceration of scalp: Plan: right scalp s/p staple repair in the ER on hospital day #1 needs alexis removed 7-10 days (7) Atrial fibrillation: Plan: permanent cont Eliquis 2.5mg BID rates controlled (8) Chronic kidney disease, stage 4 (severe): Plan: baseline CrCl 20s now with CLAYTON as above BMP in am (9) DM (diabetes mellitus), type 2: Plan: a1c 7.5% in September 2023 cont lantus 10 units daily cont novolog BSGs ac/hs hold Januvia (10) History of rectal cancer: Plan: 2018 s/p chemo & XRT s/p colostomy formation cont miralax/senna for bowel maintenance (11) Suprapubic catheter: Plan: no issues at this time cont Vibegron cont anticholinergic agent (oxybutinin BID ordered; Trospium is non-formulary) (12) Colostomy status: Plan: no issues at this time finally moving his bowels cont senna cont miralax (13) History of stroke: Plan: 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 cont Eliquis for secondary prevention (14) Pericardial effusion with cardiac tamponade: Plan: traumatic - 09/2023 s/p pericardiocentesis with removal of 500cc+ of fluid at that time no issues since then cytologies negative from the fluid then thought to be traumatic from a fall fluid was grossly bloody no rub on exam no signs/symptoms of recurrent effusion (15) S/P skin biopsy: Plan: right upper back punch bx - done at [facility] on 04/23/24 1 suture present from that punch bx will need removal in 14 days multiple shave biopsies done to exclude SCC -- right scalp, left rastafarian, left preauricular (16) Failure to thrive: Plan: for several months has had poor appetite this has continued while here consider remeron or similar CT Chest 09/2023 with - "Several nodular opacities within the lower lobes and groundglass opacities, new since prior chest CT. These favor a mild infectious process although are indeterminate. A follow-up chest CT in 3 months to ensure resolution is recommended." Consider repeat CT CT a/p 09/2023 without any abnormalities to explain his failure to thrive he blames lack of taste as the cause of anorexia check B12 along with folic acid level in am Plan appreciate PT/OT evals - rehab needed son Brooks (lives in [place]) updated by phone 04/25/24 step-son in [place] updated by phone today, 04/27/24 dispo - [facility] - perhaps in ~2 days if eating picks up and labs are stable? Admission and Anticipated Discharge Date Admission Date: April 24, 2024 Subjective patient refused AM labs today he is agreeable to having the labs tomorrow he overall feels better today still with R Hip pain but not as bad as previous during the visit his personal cell phone rang his "step-son" was calling this gentleman is a physician at a hospital in [place], [place] pt asked that I give this gentleman an update which I did right in the room using the pt's phone step-son stated that after acute rehab is done he is hopeful that Mr Bhakta will ultimately be agreeable to going into assisted living ("he shouldn't be living alone") step-son also commented that his biological son Ricardo is in support of assisted living (I spoke with Ricardo 2 days ago and indeed Ricardo wants this) patient states he is having more stool via his ostomy PO intake is somewhat better today tele overnight - a.fib with rates < 100 Review of Systems Review of Systems: CV - no chest pain or orthopnea pulm - no dyspnea at rest GI - no abd pain or N/V Physical Exam Physical Exam: gen - lying flat in bed, NAD, looks better today mouth - MM more moist today; no thrush neck - no JVD heart - irregularly irregular, s1 s2, no rub, no murmur, rate <100 lungs - CTA b/l abd - soft NT ND BS+; ostomy bag in place right abdomen - stool with copious air present; SP cath low abdomen in the midline; insertion site clean musculo - right thigh with swelling; dressings intact lateral right hip and distal thigh extremities - pulses b/l feet 2+ skin - right scalp with laceration, alexis intact; multiple band-aids in place from recent derm biopsies on left face/scalp; ecchymoses on arms from blood draws, etc Results & Data Results & Data Vital Signs (Past 12 Hours) Vital Signs Temp Pulse Pulse Resp BP BP Pulse Ox 04/27/24 15:48 87 04/27/24 15:16 36.2 C L 80 18 125/79 100 04/27/24 09:15 04/27/24 08:03 36.4 C L 81 20 119/64 98 O2 Del Method 04/27/24 15:48 04/27/24 15:16 Room Air 04/27/24 09:15 Room Air 04/27/24 08:03 Room Air Laboratory Results no labs today -- patient refused PG Care Time/CCT Total # of Minutes Spent Total Time Spent with Patient: Total time spent is greater than 50% in coordination of care (as documented) at patient's floor/unit and/or counseling patient: Coding Level of Care Code 64843 SUB INP/OBS CARE 2/35MIN Diagnoses Closed right hip fracture S72.001A 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
[2024-04-28 08:32] LABS: Hematocrit (blood only) 20.8 % (42.0-52.0); Hemoglobin 6.6 g/dl (14.0-18.0); Mean Corpuscular Hemoglobin 27.8 pg (25.0-34.0); Mean Corpuscular Hgb Conc 31.7 g/dL (32.0-36.0); Mean Corpuscular Volume 87.8 fL (80.0-100.0); Mean Platelet Volume 9.8 fL (9.4-12.4); Platelet Count 205 K/uL (130-400); RDW Coefficient of Variation 14.8 % (11.5-14.5); RDW Standard Deviation 47.8 fL (36.4-46.3); Red Blood Count 2.37 M/uL (4.70-6.10); White Blood Count 4.43 K/ul (4.8-10.8)
[2024-04-28 08:40] LABS: Calcium 8.4 mg/dl (8.6-10.3); Potassium 4.6 mmol/L (3.5-5.1)
[2024-04-28 08:46] LABS: BUN Creatinine Ratio 25.3 (10-20); Creatinine Clr Calc Pharmacy 20.1 ml/min
[2024-04-28 09:03] LABS: Ferritin 351.6 ng/ml (8-388)
[2024-04-28 09:17] LABS: Folate (Folic Acid),Ser orPlas 3.61 ng/ml (>5.38)
[2024-04-28] MEDS ORDERED: SODIUM CHLORIDE 0.9% 100 ML IV PRN (09:20)
[2024-04-28] MEDS ORDERED: SODIUM CHLORIDE 0.9% 50 ML IV PRN (09:20)
--- NOTE | 2024-04-28 09:54 | Hospitalist Progress Note ---
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 Creatinine 2's Cr improving to 2.73 - received IVFs - acute blood loss anemia likely contributing as well Encourage PO intake AM CBC and BMP (3) Acute blood loss anemia: Plan: Hb 11.4 at admission Now 6.6 - -> transfuse 1u PRBC, post transfusion H&H Fe studies: consistent with anemia of chronic disease, continue PO iron B12 WNL. Folate low- PO supplementation started (4) Asymptomatic bacteriuria: Plan: no recent symptoms of UTI, afebrile, no leukocytosis urine cx with contaminants only Defer abx at this time SP catheter in place - will always have some element of bacteriuria cont Vibegron cont anticholinergic agent (oxybutinin BID ordered; Trospium is non- formulary) (5) Laceration of scalp: Plan: right scalp s/p staple repair in the ER on hospital day #1 (04/24/24) - 4 alexis placed, need removed in 7-10 days Also with punch bx right upper back punch bx - done at [facility] on 04/23/24 - 1 suture present from that punch bx, to removed 14 days after (6) DM (diabetes mellitus), type 2: Plan: Hold home Januvia a1c 7.5% in September 2023 cont lantus 10 units daily cont novolog BSG acceptable (7) Failure to thrive: Plan: for several months has had poor appetite -he blames lack of taste as the cause of anorexia CT Chest 09/2023: "Several nodular opacities within the lower lobes and groundglass opacities, new since prior chest CT. These favor a mild infectious process although are indeterminate. 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 Is happy that he was able to have his milkshake this morning Is frustrated with the amount of sticks hes had for blood work and the corresponding brusing but is agreeable to blood transfusion today. Explained will have to have blood after wards ostomy with brown stool Review of Systems Review of Systems: All systems reviewed & are unremarkable except as noted in Subjective Physical Exam Physical Exam: gen - VS as aboce, sitting up in bed, NAD, heart -afib, no murmur, rate <100 lungs - CTA b/l abd - soft NT ND BS+; ostomy bag in place right abdomen - brown stool present extremities - right hip dressing c/d/i skin - right scalp with laceration, alexis intact; multiple band-aids in place from recent derm biopsies on left face/scalp; ecchymoses on arms from blood draws, etc Results & Data Results & Data Vital Signs (Past 12 Hours) Vital Signs Temp Pulse Pulse Pulse Resp BP BP 04/28/24 08:26 97.5 F L 88 14 120/76 04/28/24 07:19 67 04/28/24 03:56 97.9 F 71 18 136/71 04/28/24 00:08 97.7 F 73 18 122/66 04/27/24 21:54 70 Pulse Ox O2 Del Method 04/28/24 08:26 98 Room Air 04/28/24 07:19 04/28/24 03:56 97 Room Air 04/28/24 00:08 98 Room Air 04/27/24 21:54 Laboratory Results cbc, chemistry, iron panel, B12 reviewed PG Care Time/CCT Total # of Minutes Spent Total Time Spent with Patient: Total time spent is greater than 50% in coordination of care (as documented) at patient's floor/unit and/or counseling patient: Coding Level of Care Code 28468 SUB INP/OBS CARE 350MIN Diagnoses Closed right hip fracture S72.001A Acute kidney injury N17.9 Acute blood loss anemia D62 Asymptomatic bacteriuria R82.71 Laceration of scalp S01.01XA DM (diabetes mellitus), type 2 E11.9 Failure to thrive
[2024-04-28] MEDS: FOLIC ACID 1 MG TAB PO SCH (10:46)
[2024-04-28 15:03] LABS: Hematocrit (blood only) 24.2 % (42.0-52.0); Hemoglobin 7.8 g/dl (14.0-18.0)
[2024-04-29 07:13] LABS: Hemoglobin 8.2 g/dl (14.0-18.0); Mean Corpuscular Hemoglobin 27.7 pg (25.0-34.0); Mean Corpuscular Hgb Conc 31.5 g/dL (32.0-36.0); Mean Corpuscular Volume 87.8 fL (80.0-100.0); Mean Platelet Volume 9.8 fL (9.4-12.4); Platelet Count 218 K/uL (130-400); RDW Coefficient of Variation 14.6 % (11.5-14.5); RDW Standard Deviation 46.8 fL (36.4-46.3); Red Blood Count 2.96 M/uL (4.70-6.10); White Blood Count 4.44 K/ul (4.8-10.8)
[2024-04-29 07:25] LABS: Calcium 8.3 mg/dl (8.6-10.3); Creatinine Clr Calc Pharmacy 22.5 ml/min; Potassium 4.4 mmol/L (3.5-5.1)
[2024-04-29 08:13] VITALS: PULSE 72; O2SAT 96
[2024-04-29 12:12] VITALS: RESP 16; TEMP 98.1
[2024-04-29 12:15] VITALS: BP 146/88
--- NOTE | 2024-04-29 13:02 | Discharge Summary ---
Discharge Summary Date of Service April 29, 2024 Principal Dx & Hospital Course #1 = Principal Diagnosis (1) Closed right hip fracture: Pathological fracture of hip due to age related osteoporosis s/p ORIF by Dr Alli Falk 04/24 - WBAT - EBL 150 - 25-OH vit D level earlier this year was wnl; defer recheck, continue home supplementation - DVT proh: Eliquis 2.5mg BID Pain control: Scheduled tylenol, prn oxycodone PT/OT - recommend rehab, plan [facility] when stable, no auth needed - plan for d/c today 04/29 (2) Acute kidney injury: baseline CKD4 with CrCl 20s. Creatinine 2's Cr improving to 2.44 - received IVFs - acute blood loss anemia likely contributing as well Encourage PO intake back to baseline, recommend repeat BMP in 2-3 days (3) Acute blood loss anemia: Hb 11.4 at admission Now 6.6 - -> transfuse 1u PRBC, post transfusion H&H: 7.8 Fe studies: consistent with anemia of chronic disease, continue PO iron B12 WNL. Folate low- PO supplementation started Hgb continues to rise, now 8.2, consider CBC in 2-3 days (4) Asymptomatic bacteriuria: no recent symptoms of UTI, afebrile, no leukocytosis urine cx with contaminants only Defer abx at this time SP catheter in place - will always have some element of bacteriuria cont Vibegron cont anticholinergic agent (Trospium is home med) (5) Laceration of scalp: right scalp s/p staple repair in the ER on hospital day #1 (04/24/24) - 4 karla placed, need removed in 7-10 days Also with punch bx right upper back punch bx - done at [facility] on 04/23/24 - 1 suture present from that punch bx, to removed 14 days after (6) DM (diabetes mellitus), type 2: home Januvia + lantus --> continue at discharge a1c 7.5% in September 2023 BSG acceptable (7) Failure to thrive: for several months has had poor appetite -he blames lack of taste as the cause of anorexia CT Chest 09/2023: "Several nodular opacities within the lower lobes and groundglass opacities, new since prior chest CT. These favor a mild infectious process although are indeterminate. 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 States that he was getting up to go to the bathroom this evening. Was on his way into the living room to turn on the fireplace and put his slippers on when he fell. Lives alone in assisted living. Has life alert button, but took him about an hour to get it to activate. At present only complaint is pain in right hip. Pt states that there is no family that he would like to be called and specifically states to not call his son. ED Course Significant for: CBC with hgb= 11.4 (baseline 11-12), CMP with creatine= 2.18 (BL 2.3-2.7), CK= 28. CXR with perihilar congestion, Head CT without acute fracture, old ischemic changes, XR Hip with Displaced intertrochanteric fracture of the right femur. CT cervical spine without acute pathology. EKG with afib HR=80, nonspecific T wave changes- no acute ischemic changes. Discharge Exam gen - VS as above, sitting up in bed, NAD, heart -afib, no murmur, rate <100 lungs - CTA b/l abd - soft NT ND BS+; ostomy bag in place right abdomen - brown stool present : suprapubic catheter in place extremities - right hip dressing c/d/i skin - right scalp with laceration, karla intact; multiple band-aids in place from recent derm biopsies on left face/scalp; ecchymoses on arms from blood draws, etc Discharge Plan Discharge Items Patient Disposition: Transfer Inpatient Rehab Fac Reason For Visit: HIP FRACTURE Discharge Diagnosis: hip fracture, Acute blood loss anemia Activity: As commented below Activity Comment: work with therapy to get stronger and return to your baseline Weightbearing: Full weightbearing Non-emergency contact: Primary Care Provider Call non-emergency contact if: you have any medication questions, your symptoms worsen, your pain is worsening and your temperature is above 101 Follow-up/Referrals: Alli Falk MD [Surgeon] - (follow up in 2 weeks ) Bisi Rhodes [Primary Care Provider] - ( follow-up within 7 days from [facility]) Diet: Carb Count or DM1 Addtl Attending Provider Instructions: Mr. Bhakta, Paul were hospitalized after a fall resulting in a hip fracture that was repaired by Dr. Falk on 04/24. [facility]. Your kidney function and blood counts are improving and will continued to be monitored at [facility]. You will need to follow up with Ortho 2 weeks from surgery for staple removal. Follow up with PCP after discharge. [facility] : - blood transfusion 1u 04/28, hgb stable recommend repeat CBC 2-3 days - [place] at baseline day of d/c - recommend BMP in 2-3 days - right upper back punch bx - done at [facility] on 04/23/24 - 1 suture present from that punch bx, to removed 14 days after - s/p staple repair in the ER on hospital day #1 (04/24/24) - 4 karla placed, need removed in 7-10 days - patient likes ice cream mixed with milk for a milkshake with breakfast every morning - pain control scheduled tylenol, prn oxycodone - Brooks Sanabria, , very concerned about patient returning home after discharge, lives alone. Addtl Computer Processing Scheduler Provider Instructions: Orthopaedic Instructions after Hip Fracture Surgery: Please keep your wound clean and dry. Do not remove any of the karla. Karla were removed at your follow-up appointment with orthopedic surgery. Please continue daily dressing changes until your follow-up appointment. If there is no drainage onto the dressing for total of 24 hours, you may shower after 5 days from surgery. Allow soap and water to run over the incision, no scrubbing, and pat dry. Do not submerse (sitting in bathtub, hot tub, jacuzzi, pool, etc) the wound for at least 3 weeks. You may bear weight on your lower extremities as tolerated. Please use the walker or as instructed by physical therapy. For pain control please use Tylenol as needed. You may also have a stronger pain medication prescribed to you at discharge. You can also apply ice to the surgical site. Because you are on Eliquis, no additional protection from blood clots should be necessary. Continue your previously prescribed Eliquis. Orthopedic clinic follow-up should be in 2-3 weeks after surgery for repeat x- ray. [place] can be removed at the orthopedic follow-up. If necessary, karla can be removed by a nurse at home or at a nursing facility upon our order. Please contact the clinic. Pending Studies at Discharge: No Stand-Alone Forms: My [facility] Skilled Items Patient informed of condition?: Yes DNR: Yes Discharge Level of Care: Acute rehab Communicable Disease: No Discharge Prognosis: Stable Lines: None Urinary Catheter: Yes (chronic suprapubic catheter ) Medications and DC Order Prescriptions: New triamcinolone acetonide 0.1 % Cream 1 applic EXT TID PRN (Reason: itching) Qty: 30 0RF mupirocin 2 % Ointment 1 applic EXT TID Qty: 30 0RF Continued Eliquis 2.5 mg tablet 2.5 mg PO BID Qty: 180 3RF Hold Instructions: Resume on 10/17/23. fosfomycin tromethamine 3 gram packet 1 packet PO Q OTHER DAY Qty: 3 0RF cholecalciferol (vitamin D3) [Vitamin D3] 25 mcg (1,000 unit) tablet 2,000 unit PO DAILY Qty: 180 0RF docusate sodium [Colace] 100 mg capsule 100 mg PO BID ondansetron HCl 4 mg tablet 4 mg PO Q8H PRN (Reason: NAUSEA/VOMITING) ferrous sulfate 325 mg (65 mg iron) Tablet 325 mg PO QAM rosuvastatin 10 mg tablet 10 mg PO HS cyanocobalamin (vitamin B-12) [Vitamin B-12] 1,000 mcg tablet 1,000 mcg PO DAILY trospium 60 mg capsule,extended release 24hr 60 mg PO DAILYBB Januvia 50 mg tablet 50 mg PO DAILY insulin glargine [Basaglar KwikPen U-100 Insulin] 100 unit/mL (3 mL) insulin pen 5 unit SUBCUT PM amlodipine 2.5 mg tablet 2.5 mg PO DAILY omeprazole 20 mg capsule,delayed release(DR/EC) 20 mg PO DAILY insulin aspart U-100 [Novolog U-100 Insulin aspart] 100 unit/mL Solution 1 sliding scale dose SC ACHS Qty: 10 0RF Rx Instructions: please use loose sliding scale goal 90-150, correction 25 Gemtesa 75 mg Tablet 75 mg PO DAILY Discharge Orders: Discharge Order (Routine); Ordered 04/29/24 Ordered By: Deena Simon/Other Patient Handouts: Managing Type 2 Diabetes Admission Data Admit Date/Time: 04/24/24 05:50 Attending Provider: Avelino Llanos Admit Provider: Estelita Haynes Primary Care Provider: Bisi Rhodes Other Providers: Tate Rivera; Mukesh Cali; [facility] Hospital Stay Data Consultations 04/24/24 05:25 ED Decision to Admit Stat 04/24/24 05:49 Consult Orthopedic Surgery Routine Procedures Performed Operation Date: 04/24/24 14:20 Actual Procedures p Right Hip Fracture Closed Reduction and Internal Fixation(Right) - Alli Falk MD Diagnostic Imagining Performed Hip X-Ray 04/24/24 00:00 FL hip RT 2-3V CLINICAL HISTORY: RIGHT TROCH NAIL COMPARISON STUDY: Femur radiographs of same day FLUOROSCOPY TIME: 1 minute and 13.5 seconds FLUOROSCOPY IMAGES: 4 EXPOSURE DOSE: 7.2615 mGy FINDINGS: Intertrochanteric nail with medullary mony is noted fixating an acute proximal right femoral fracture deformity. The lesser trochanteric fracture fragment is displaced medially several millimeters. Soft tissue swelling with expected deep tissue air at the surgical site. IMPRESSION: Fluoroscopic assistance was above. ACT 112: Negative or not required by law. Electronically signed by: Uday Becerra M.D. 04/25/2024 7:09 AM Chest X-Ray 04/24/24 03:50 EXAM: XR chest 1V portable CLINICAL HISTORY: FALL RT HIP DEFORMITY JMF TECHNIQUE: X-ray image of the chest is obtained in AP portable projection. COMPARISON: Comparison with the previous study dated 10/22/2023. FINDINGS: Pulmonary Parenchyma: Prominent both tiarra with perihilar congestion, a cardiac cause should be considered for clinical correlation. Lungs are clear bilaterally. No evidence of consolidation, collapse, or focal opacities. No pulmonary nodules are identified. No evidence of pleural effusion or pleural thickening. Heart and Mediastinum: Cardiomegaly. No mediastinal widening or masses. No hilar or mediastinal lymphadenopathy. Bony Thorax: Evidence of an old right 6th rib posterior fracture. An old left humeral diaphysis fracture Soft Tissues: Soft tissues overlying the chest wall are unremarkable. IMPRESSION: 1. Prominent both tiarra with perihilar congestion, a cardiac cause should be considered for clinical correlation. Mild interval progression noted 2. Cardiomegaly. 3. Old healed fracture of right 6th rib posterior and left humeral diaphysis. 4. No other significant changes in comparison with previous study) Electronically signed by Hector Presley 04-24-2024 04:[address] 04/24/24 03:50 EXAM: CT head/brain wo con CLINICAL HISTORY: FELL HIT HEAD, TRAUMA TECHNIQUE: Axial non-contrast CT scan of the brain was performed from the skull base to the high parietal region with multiple reformats. One of the following dose reduction techniques were utilized for this exam: Automated exposure control, adjustment of the mA and/or kV according to patient size, use of iterative reconstruction. COMPARISON: 12/02/2023 FINDINGS: Brain Parenchyma: Still noted right parieto-temporal and smaller right frontal ill-defined area of encephalomalacia/gliosis. There are diffuse ill-defined iso-to hypodense areas noted in the subcortical white matter bilaterally, suggestive of microvascular ischemic changes. Normal attenuation of the cerebellum, and brainstem. No evidence of hemorrhage, or mass effect. Ventricular System: The ventricular system, cortical sulci and basal cisterns are prominent consistent with senile changes. Subarachnoid Spaces: No evidence of subarachnoid hemorrhage or extra-axial fluid collections. Sinuses: Clear paranasal sinuses. No evidence of sinusitis or mucosal thickening. Mastoid Air Cells: Clear mastoid air cells. No evidence of mastoiditis. Skull and Meninges: Small superficial right parietal scalp swelling with no underlying fractures. Normal skull morphology. IMPRESSION: 1. No acute cerebral abnormality. 2. Still noted right parieto-temporal and smaller right frontal ill-defined area of encephalomalacia/gliosis; likely sequel of old ishcemic insult (stable). 3. The above-mentioned findings are suggestive of microvascular ischemic changes and senile changes (stable). 4. Small superficial right parietal scalp swelling with no underlying fractures (new finding) Electronically signed by Hector Presley 04-24-2024 05:22 AM Hip/Pelvis X-Ray 04/24/24 03:50 EXAM: XR hip RT 2V w pelvis CLINICAL HISTORY: FALL RT HIP DEFORMITY JMF TECHNIQUE: X-ray images of the right hip joints in AP and lateral and pelvis were obtained in anteroposterior (AP) projection. COMPARISON: No prior studies are available for comparison. FINDINGS: Pelvic Bones: Pelvic bones, including the iliac wings, ischium, pubis, and sacrum, are normal and intact. No evidence of fractures, dislocations, or significant osseous lesions. Hip Joint: Moderately displaced Intertrochantric fracture of the right femur. Acetabular structures appear normal and intact. No signs of acetabular fracture or dysplasia. Sacroiliac joints appear normal and unremarkable. No evidence of sacroiliitis or significant degenerative changes. Symphysis Pubis: The symphysis pubis is normal and intact. No evidence of separation or widening. Soft Tissues: Visualized soft tissues are normal and unremarkable. No soft tissue swelling, calcifications, or masses. Additional Findings: Small rounded sclerotic densities are seen projecting over the right iliac bone and left superior and inferior pubic rami. IMPRESSION: Displaced intertrochantric fracture of the right femur. DISCLAIMER:A subtle bone abnormality or fracture may not be readily apparent on x-rays, thus clinical correlation and further imaging including follow up CT, MRI, or follow up x-rays are advised as needed. Electronically signed by Hector Presley 04-24-2024 05:[address] 04/24/24 03:51 EXAM: CT cervical spine wo con CLINICAL HISTORY: FELL HIT HEAD, TRAUMA TECHNIQUE: CT scan of the cervical spine was performed without the administration of intravenous contrast. Contiguous axial images were obtained from the skull base to the upper thoracic spine. Coronal and sagittal reformatted images were also reviewed. One of the following dose reduction techniques was utilized for this exam. Automated exposure control, adjustment of the mA and/or kV according to patient size, and use of iterative reconstruction. COMPARISON: CT on 09/27/2023. FINDINGS: No evidence of acute fracture or dislocation. Fusion between C3 and C4 vertebra. The cortical and trabecular bone patterns are normal. No signs of lytic or sclerotic lesions. Spondylotic changes in the visualized spine with multilevel marginal bony hypertrophies, facet arthropathic changes, endplate changes, and reduced to lost intervertebral disc spaces. Multilevel disc bony hypertrophy complexes in combination with facet arthropathic changes exert effects on the spinal canal and neural foraminal. Atlantoaxial degenerative changes. Soft tissue calcification is seen in the posterior aspect of the neck. IMPRESSION: No evidence of acute fracture or dislocation. Moderate-severe spondylotic changes were noted, stable in comparison with CT on 09/27/2023. Electronically signed by Hector Presley 04-24-2024 05:17 AM Femur X-Ray 04/24/24 18:55 INDICATION: Pain TECHNIQUE: 2 views of the right femur were obtained. COMPARISON: None FINDINGS: Status post intramedullary mony and screw stabilization of the right intertrochanteric region femoral fracture. There is a displaced lesser trochanter femur fragment seen medially. Expected postsurgical changes of the soft tissues. IMPRESSION: Status post intramedullary mony and screw stabilization of the right intertrochanteric region femoral fracture. Electronically signed by Nick Cochran 04-24-2024 7:57 PM Pending Results Patient Have Any Pending Studies at Discharge: No Discharge Instructions Given to Patient (Per Discharging Provider) Paul Dudley were hospitalized after a fall resulting in a hip fracture that was repaired by Dr. Falk on 04/24. [facility]. Your kidney function and blood counts are improving and will continued to be monitored at [facility]. You will need to follow up with Ortho 2 weeks from surgery for staple removal. Follow up with PCP after discharge. [facility] : - blood transfusion 1u 04/28, hgb stable recommend repeat CBC 2-3 days - [place] at baseline day of d/c - recommend BMP in 2-3 days - right upper back punch bx - done at [facility] on 04/23/24 - 1 suture present from that punch bx, to removed 14 days after - s/p staple repair in the ER on hospital day #1 (04/24/24) - 4 karla placed, need removed in 7-10 days - patient likes ice cream mixed with milk for a milkshake with breakfast every morning - pain control scheduled tylenol, prn oxycodone - Brooks Sanabria [phone], very concerned about patient returning home after discharge, lives alone. Total Time Total Time Spent Total Time Spent (In Minutes): Time spent day of discharge 35 minutes including direct patient care, medication reconciliation, documentation, review of labs and images, and coordination of care. Coding Level of Care Code 18309 INP/OBS DISCH >30 MIN Diagnoses Closed right hip fracture S72.001A Acute kidney injury N17.9 Acute blood loss anemia D62 Asymptomatic bacteriuria R82.71 Laceration of scalp S01.01XA DM (diabetes mellitus), type 2 E11.9 Failure to thrive
== END 2024-04-29 14:54 | DRG 481 ==
LOC: SUATTDRO → ED 03:27 → SUATTDRO 05:50 → 2N 05:50

== ENCOUNTER 2024-05-14 09:30 | Inpatient (IN) ==
--- NOTE | 2024-05-14 10:03 | Emergency Department Note ---
Impression & Plan Acute hypernatremia, Weakness, COVID, CKD (chronic kidney disease), Acute UTI ED Provider Note NAME: MARIXA TAYLOR AGE: 84 SEX: M : 1940 ARRIVES VIA: Ambulance INFORMANT: Patient, nursing report ED PROVIDER(S): Wilson Pena MD CHIEF COMPLAINT: Weakness, decreased p.o. intake MEDICAL DECISION MAKING: Patient presents due to concern for generalized weakness poor p.o. intake dehydration as well as generalized bodyaches. IV was established and blood work was obtained. Patient was ordered IV fluids. Screening chest x-ray as well as hip x-rays were ordered. The patient's blood work shows a normal white count hemoglobin of 10.4 which is improved compared to April 28 at which point was less than 7. Thrombocytosis noted 441. Kidney function with mild C[place] did receive IV fluids. Anion gap of 17 with a bicarb of 17. Sodium 151 which may be secondary to GI losses. Patient's urinalysis does show concern for infection. [employer] positive for COVID-19. Patient's chest x-ray and hip x-rays are negative. Antibiotic treatment deferred to inpatient service and to speak with Dr. Tucker. Patient did receive p.o. Tylenol. The patient was admitted to the medicine service. Discussion w/ other healthcare providers: Dr. Tucker inpatient medicine service Prior /Outside records reviewed: I reviewed discharge summary from [facility]. Patient did present for a pathologic fracture of hip due to age-related osteoporosis status post ORIF by Dr. Falk on April 24. Differential diagnosis: Infection, dehydration, metabolic abnormality, hypo/hyperglycemia, electrolyte imbalance, anemia, UTI, pneumonia, thyroid dysfunction among others were considered. Diagnostics, as interpreted by me: ECG: A-fib with RVR, rate of 104, normal QRS duration, left axis deviation no obvious STEMI. Possible depression in the inferior leads. Cardiac monitoring: An order was placed for continuous cardiac monitoring. The monitor shows a rate of 95 with irregular irregular rhythm. Patient was placed on pulse oximetry Medical decision rules: None Imaging studies: I informally interpreted the patient's chest x-ray does not show obvious pneumonia or pneumothorax with formal report to follow. HPI: Patient presents due to concern for general pains and aches and overall feeling fatigable. Additional history provided per nursing report that the patient is coming from [place] with generalized weakness and not eating well also not taking prescribed medications. He was recently discharged from [facility] to [place] after being there after his hip surgery. Patient states that the hip surgery was not done at [facility]. The patient states that his hip surgery was on his right hip. Patient denies any falls or trauma. Patient denies any cough or fever. The patient denies any abdominal pain. He does have a colostomy. Patient reportedly is being treated for UTI at the care facility. PAST MEDICAL HISTORY: See Below PAST SURGICAL HISTORY: See Below SOCIAL HISTORY: See Below HOME MEDICATIONS: See Below ALLERGIES: See Below VITALS: See Below PHYSICAL EXAMINATION: GENERAL: NAD, non-toxic. Wearing glasses. EYE EXAM: Normal conjunctiva. PERRL, no anisocoria and EOM's grossly intact w/o pain. OROPHARYNX: Dry mucus membranes, grossly normal dentition. NECK: Trachea midline, no stridor. Supple, no nuchal rigidity, no adenopathy, non-tender. No signs of meningismus. FROM of the neck with good chin to chest and neck extension. LUNGS: Clear to auscultation. Normal chest wall mechanics. HEART: NSR, no MRG. ABDOMEN: Abdomen soft, non-tender, colostomy noted in the right lower abdomen, no masses, no rebound or guarding. BACK: No CVA TTP. SKIN: No rashes and no bruising. UPPER EXTREMITIES: Upper extremities are grossly normal. LOWER EXTREMITIES: Grossly normal, no edema. Well-healed incisional site over the lateral aspect of the right hip. NEURO EXAM: A&O x3, cranial nerves II-XII grossly intact, normal speech, moves all 4 extremities. Past Med/Surg History Problem List (Updated 05/14/24 @ 14:31 by Wilson Pena MD) Acute UTI (Acute) CKD (chronic kidney disease) (Acute) Acute hypernatremia (Acute) COVID (Acute) Weakness (Acute) Laceration of scalp (Acute) Elevated troponin High anion gap metabolic acidosis Heart failure with reduced ejection fraction Acute CVA (cerebrovascular accident) (Acute) Leucocytosis (Acute) Non-ST elevation [place] (NSTEMI) (Acute) Acute confusion (Acute) Generalized weakness (Acute) Pericardial effusion Cardiomegaly (Acute) Edema of right lower extremity (Acute) Rib pain (Acute) New onset atrial fibrillation (Acute) Fall (Acute) Food impaction of esophagus Esophageal abnormality (Acute) Vomiting (Acute) Skin lesion History of urinary retention Benign prostatic hyperplasia with urinary obstruction and other lower urinary tract symptoms (Acute) Hyperlipidemia (Acute) Hypertension (Acute) Urinary retention (Acute) Vitamin D deficiency Diabetes Diarrhea Obstructive uropathy (Chronic) Pre-syncope Rectal cancer (Chronic 06/17/17) "Rectal bleeding Status post colonoscopy and biopsy 06/17/2017 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 Plan for combined radiation and chemotherapy followed by possible resection Status post completion of combined radiation and chemotherapy August 30, 2017." On 07/07/17 13:09 Felicia Hannon wrote "Rectal bleeding Status post colonoscopy and biopsy 06/17/2017 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 Plan for combined radiation and chemotherapy followed by possible resection" Medical History Failure to thrive Acute blood loss anemia Pericardial effusion with cardiac tamponade History of stroke History of rectal cancer Pathological fracture of hip due to age-related osteoporosis Anticoagulated CHI (closed head injury) Closed right hip fracture Atrial fibrillation Chronic kidney disease, stage 4 (severe) Suprapubic catheter DM (diabetes mellitus), type 2 (HFpEF) heart failure with preserved ejection fraction Anticoagulant long-term use Recent cerebrovascular accident (CVA) Jewell UTI 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 Surgical History S/P skin biopsy Status post hip surgery Colostomy status Family History Other Family history non-contributory Social History Smoking Status: Unknown if ever smoked Do You Dip or Chew Tobacco: No; Hx Alcohol Use: Yes Alcohol type: hard liquor Hx Substance Use: No Preferred Language: Irish Communication Ability: Effective Visual Impairment: No Limitations 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: Normal 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: No Beliefs That Will Affect Care: None marital status: / Current Living Situation: Alone Current Living Situation Comment: home alone with CNAs throughout the day current occupational status: retired Feels Safe at Home: Yes Assistive Devices: Walker Allergies Allergies Allergy/AdvReac Type Severity Reaction Status Date / Time atorvastatin [From Lipitor] Allergy Unknown Verified 03/22/24 13:32 Home Meds Home Medications Medication Instructions Recorded Confirmed ferrous sulfate 325 mg (65 mg 325 mg PO QAM 02/24/18 05/14/24 iron) tablet rosuvastatin 10 mg tablet 10 mg PO HS 02/24/18 05/14/24 cyanocobalamin (vitamin B-12) 1,000 mcg PO DAILY 12/19/19 05/14/24 1,000 mcg tablet (Vitamin B-12) trospium 60 mg capsule,extended 60 mg PO DAILYBB 04/18/23 05/14/24 release 24 hr sitagliptin phosphate 50 mg tablet 50 mg PO DAILY 09/27/23 05/14/24 (Januvia) docusate sodium 100 mg capsule 100 mg PO BID 10/13/23 05/14/24 (Colace) insulin glargine 100 unit/mL (3 5 unit subcut PM 10/19/23 05/14/24 mL) subcutaneous pen (Basaglar KwikPen U-100 Insulin) amlodipine 2.5 mg tablet 2.5 mg PO DAILY 10/22/23 05/14/24 omeprazole 20 mg capsule,delayed 20 mg PO DAILY 10/22/23 05/14/24 release ondansetron HCl 4 mg tablet 4 mg PO Q8H PRN NAUSEA/VOMITING 11/07/23 05/14/24 vibegron 75 mg tablet (Gemtesa) 75 mg PO DAILY 12/02/23 05/14/24 nitrofurantoin 100 mg PO UD 05/14/24 05/14/24 monohydrate/macrocrystals 100 mg capsule quetiapine 25 mg tablet 25 mg PO DAILY 05/14/24 05/14/24 Previous Rx's Medication Instructions Recorded cholecalciferol (vitamin D3) 25 2,000 unit PO DAILY #180 tabs 04/25/20 mcg (1,000 unit) tablet (Vitamin D3) insulin aspart U-100 100 unit/mL 1 sliding scale dose SC ACHS #10 mL 10/26/23 subcutaneous solution (Novolog U-100 Insulin aspart) apixaban 2.5 mg tablet (Eliquis) 2.5 mg PO BID #180 tabs 01/02/24 fosfomycin tromethamine 3 gram 1 packet PO Q OTHER DAY 3 doses #3 01/24/24 oral packet ea mupirocin 2 % topical ointment 1 applic EXT TID #30 grams 04/29/24 triamcinolone acetonide 0.1 % 1 applic EXT TID PRN itching #30 04/29/24 topical cream grams Results & Data (ED) Vital Signs Vital Signs - 24 hr 05/14/24 09:37 05/14/24 09:44 05/14/24 10:45 Temperature 36.3 C L Temperature Source Oral Pulse Rate 101 H 96 H 95 H Pulse Rate [Apical] Pulse Rate from SpO2 Sensor Pulse Rhythm [Apical] Respiratory Rate 20 20 Respiratory Effort / Characteristics Non-Labored Respiratory Depth Normal Respiratory Pattern Regular Blood Pressure 150/120 H Blood Pressure [Right Arm] Blood Pressure Mean 130 Blood Pressure Mean [Right Arm] Blood Pressure Position Lying Blood Pressure Position [Right Arm] Pulse Oximetry 98 97 Oxygen Delivery Method Room Air Room Air Sepsis Recent Fever Within 48 Hours No Sepsis New/Unexplained Change in Mental Status No Sepsis Action Taken by Nursing No Action Required 05/14/24 11:30 05/14/24 11:30 05/14/24 12:42 Temperature Temperature Source Pulse Rate 84 86 Pulse Rate [Apical] 76 Pulse Rate from SpO2 Sensor 89 83 Pulse Rhythm [Apical] Irregular Respiratory Rate 20 18 12 Respiratory Effort / Characteristics Respiratory Depth Respiratory Pattern Blood Pressure 147/90 H 143/84 H Blood Pressure [Right Arm] 147/90 H Blood Pressure Mean 109 103 Blood Pressure Mean [Right Arm] 109 Blood Pressure Position Blood Pressure Position [Right Arm] Lying Pulse Oximetry 99 97 99 Oxygen Delivery Method Room Air Room Air Room Air Sepsis Recent Fever Within 48 Hours Sepsis New/Unexplained Change in Mental Status Sepsis Action Taken by Nursing 05/14/24 13:30 05/14/24 13:45 05/14/24 14:00 Temperature 37 C Temperature Source Oral Pulse Rate 88 81 Pulse Rate [Apical] Pulse Rate from SpO2 Sensor 86 82 Pulse Rhythm [Apical] Respiratory Rate 14 18 Respiratory Effort / Characteristics Respiratory Depth Respiratory Pattern Blood Pressure 157/83 H 157/83 H Blood Pressure [Right Arm] Blood Pressure Mean 107 107 Blood Pressure Mean [Right Arm] Blood Pressure Position Blood Pressure Position [Right Arm] Pulse Oximetry 98 99 Oxygen Delivery Method Room Air Room Air Sepsis Recent Fever Within 48 Hours Sepsis New/Unexplained Change in Mental Status Sepsis Action Taken by Correction Medications Current Medication List: was personally reviewed by mt Laboratory Data Attestation: I reviewed the patient's lab results. 05/14/24 10:42 05/14/24 10:42 Lab Results 05/14/24 05/14/24 05/14/24 Range/Units 10:32 10:42 11:48 WBC 7.23 (4.8-10.8) K/ul RBC 3.81 L (4.70-6.10) M/uL Hgb 10.4 L (14.0-18.0) g/dl Hct 34.9 L (42.0-52.0) % MCV 91.6 (80.0-100.0) fL MCH 27.3 (25.0-34.0) pg MCHC 29.8 L (32.0-36.0) g/dL RDW Std Deviation 52.3 H (36.4-46.3) fL RDW Coeff of Timoteo 15.8 H (11.5-14.5) % Plt Count 441 H (130-400) K/uL MPV 9.3 L (9.4-12.4) fL Immature Gran % (Auto) 0.6 % Neut % (Auto) 88.7 % Lymph % (Auto) 5.8 % [place] % (Auto) 3.6 % Eos % (Auto) 0.7 % Baso % (Auto) 0.6 % Neut # (Auto) 6.42 (1.40-6.50) K/uL Lymph # (Auto) 0.42 L (1.20-3.40) K/uL [place] # (Auto) 0.26 (0.11-0.59) K/uL Eos # (Auto) 0.05 (0.00-0.50) K/uL Baso # (Auto) 0.04 (0.00-0.20) K/uL Immature Gran # (Auto) 0.04 (0.01-0.20) K/uL Sodium 151 H (136-145) mmol/L Potassium 4.9 (3.5-5.1) mmol/L Chloride 117 H (98-107) mmol/L Carbon Dioxide 17 L (21-32) mmol/L Anion Gap 17 H (3-11) BUN 81 H (6-23) mg/dl Creatinine 3.02 H (0.6-1.4) mg/dl Est Cr Clr Drug Dosing Not Reportable eGFR 19.70 BUN/Creatinine Ratio 26.8 H (10-20) Glucose 98 (70-99(Fasting)) mg/dl Calcium 9.7 (8.6-10.3) mg/dl Total Bilirubin 0.6 (0.2-1.0) mg/dl AST 10 L (13-39) U/L ALT 3 L (7-52) U/L Alkaline Phosphatase 109 H (34-104) U/L Total Protein 7.8 (6.0-8.3) gm/dl Albumin 3.5 (3.4-5.0) gm/dl Globulin 4.3 H (2.5-4.0) gm/dl Albumin/Globulin Ratio 0.8 L (0.9-2) TSH 0.759 (0.300-4.500) uIu/ml Urine Color Yellow Urine Appearance Turbid A (Clear) Urine pH 5.5 (4.5-7.5) Ur Specific [place] 1.017 (1.000-1.030) Urine Protein 3+ H (Negative) Urine Glucose (UA) Negative (Negative) Urine Ketones 1+ H (Negative) Urine Blood 3+ H (Negative) Urine Nitrite Negative (Negative) Urine Bilirubin Negative (Negative) Urine Urobilinogen Negative (Negative) Ur Leukocyte Esterase 3+ H (Negative) Urine WBC (Auto) >50 H (0-5) /hpf Urine RBC (Auto) 11-20 H (0-2) /hpf U Hyaline Cast (Auto) 11-20 H (0-2) /lpf U Epithel Cells (Auto) 0-2 (0-2) /hpf Urine Bacteria (Auto) 4+ H (None Seen) Adenovirus (PCR) Not Detected (NotDetected) B. pertussis DNA (PCR) Not Detected (NotDetected) B.parapertussis DNA PCR Not Detected (NotDetected) C. pneumoniae DNA (PCR) Not Detected (NotDetected) Coronavirus OC43 (PCR) Not Detected (NotDetected) Coronavirus HKU1 (PCR) Not Detected (NotDetected) Coronavirus 229E (PCR) Not Detected (NotDetected) SARS-CoV-2 (PCR) DETECTED A (NotDetected) Coronavirus NL63 (PCR) Not Detected (NotDetected) Human Metapneumovir PCR Not Detected (NotDetected) Influenza Type A (PCR) Not Detected (NotDetected) Influenza Type B (PCR) Not Detected (NotDetected) M. pneumoniae (PCR) Not Detected (NotDetected) Parainfluenza 1 (PCR) Not Detected (NotDetected) Parainfluenza 2 (PCR) Not Detected (NotDetected) Parainfluenza 3 (PCR) Not Detected (NotDetected) Parainfluenza 4 (PCR) Not Detected (NotDetected) RSV (PCR) Not Detected (NotDetected) Entero/Rhino (PCR) Not Detected (NotDetected) Administered Medications Acetaminophen (Acetaminophen 325 Mg Tab) 650 mg PO Q4H PRN PRN Reason: pain/fever Stop: 06/13/24 12:55 Last Admin: 05/14/24 13:17 Dose: 650 mg Documented By: QGV Sodium Chloride (Nss) 1,000 mls @ 80 mls/hr IV .[id number] MARIANA Stop: 05/15/24 13:14 Last Admin: 05/14/24 13:18 Dose: 80 mls/hr Documented By: QGV Discontinued Medications Sodium Chloride (Nss) 1,000 mls @ 999 mls/hr IV .[id number] ONE Stop: 05/14/24 11:40 Last Infusion: 05/14/24 13:32 Dose: Infused Documented By: Admin: 05/14/24 10:51 Dose: 999 mls/hr Documented By: QGV Cefepime HCl (Maxipime 2000mg) 1,000 mg in 10 mls @ 5 mls/min IV ONE ONE; Protocol Stop: 05/14/24 13:31 Last Admin: 05/14/24 14:12 Dose: 5 mls/min Documented By: QGV Imaging Data Radiologist's Impression: Chest X-Ray 05/14/24 10:40 XR chest 1V portable CLINICAL HISTORY: weakness COMPARISON STUDY: Chest CT September 27, 2023. Chest radiograph April 24, 2024. FINDINGS: Old bilateral rib fractures and an old proximal left humeral fracture are incidentally noted. There is no pneumothorax or pleural effusion. There is no consolidation or evidence for pulmonary edema. Meg[place] is again noted. IMPRESSION: No acute cardiopulmonary findings. ACT 112: Negative or not required by law. Electronically signed by: Rupesh Martell M.D. 05/14/2024 10:58 AM Hip/Pelvis X-Ray 05/14/24 11:30 XR hip RT 2V w pelvis CLINICAL HISTORY: Right hip surgery. COMPARISON: Right femur radiographs April 24, 2024. FINDINGS: There are stable postoperative findings following internal fixation of the intertrochanteric fracture of the right femur. Hardware is intact. Slight irregularity of the right inferior pubic ramus remains unchanged. This is chronic. IMPRESSION: 1. Stable postoperative findings following internal fixation of the intertrochanteric fracture of the right femur. 2. No additional fractures within the pelvis or hips. ACT 112: Negative or not required by law. Electronically signed by: Rupesh Martell M.D. 05/14/2024 12:16 PM Discharge Plan Visit Data Chief Complaint: Weakness ED Provider: Wilson Pena Discharge Problem: Acute hypernatremia, Weakness, COVID, CKD (chronic kidney disease), Acute UTI Forms Stand Alone Forms: [facility] [employer] Prescriptions Prescriptions: No Action Eliquis 2.5 mg tablet 2.5 mg PO BID Qty: 180 3RF Hold Instructions: Resume on 10/17/23. fosfomycin tromethamine 3 gram packet 1 packet PO Q OTHER DAY Qty: 3 0RF cholecalciferol (vitamin D3) [Vitamin D3] 25 mcg (1,000 unit) tablet 2,000 unit PO DAILY Qty: 180 0RF docusate sodium [Colace] 100 mg capsule 100 mg PO BID ondansetron HCl 4 mg tablet 4 mg PO Q8H PRN (Reason: NAUSEA/VOMITING) ferrous sulfate 325 mg (65 mg iron) Tablet 325 mg PO QAM rosuvastatin 10 mg tablet 10 mg PO HS cyanocobalamin (vitamin B-12) [Vitamin B-12] 1,000 mcg tablet 1,000 mcg PO DAILY trospium 60 mg capsule,extended release 24hr 60 mg PO DAILYBB Januvia 50 mg tablet 50 mg PO DAILY insulin glargine [Basaglar KwikPen U-100 Insulin] 100 unit/mL (3 mL) insulin pen 5 unit SUBCUT PM triamcinolone acetonide 0.1 % Cream 1 applic EXT TID PRN (Reason: itching) Qty: 30 0RF mupirocin 2 % Ointment 1 applic EXT TID Qty: 30 0RF quetiapine 25 mg tablet 25 mg PO DAILY Rx Instructions: 25 mg po daily. Filled 05/10 30 day supply nitrofurantoin monohyd/m-cryst 100 mg capsule 100 mg PO UD Rx Instructions: 100 mg po BID. filled 05/11 10 day supply amlodipine 2.5 mg tablet 2.5 mg PO DAILY omeprazole 20 mg capsule,delayed release(DR/EC) 20 mg PO DAILY insulin aspart U-100 [Novolog U-100 Insulin aspart] 100 unit/mL Solution 1 sliding scale dose SC ACHS Qty: 10 0RF Rx Instructions: please use loose sliding scale goal 90-150, correction 25 Gemtesa 75 mg Tablet 75 mg PO DAILY Referrals Referrals: Bisi Rhodes [Primary Care Provider] - Discharge Problem: CKD (chronic kidney disease) Qualifiers: Chronic kidney disease stage: stage 4 (GFR 15-29) Qualified Code(s): N18.4 - Chronic kidney disease, stage 4 (severe)
[2024-05-14] MEDS: SODIUM CHLORIDE 0.9% 1,000 ML IV ONE (10:51)
--- NOTE | 2024-05-14 10:59 | XRay Report ---
XR chest 1V portable CLINICAL HISTORY: weakness COMPARISON STUDY: Chest CT September 27, 2023. Chest radiograph April 24, 2024. FINDINGS: Old bilateral rib fractures and an old proximal left humeral fracture are incidentally note d. There is no pneumothorax or pleural effusion. There is no consolidation or evidence for pulmonary edema. Meg[place] is again noted. IMPRESSION: No acute cardiopulmonary findings. ACT 112: Negative or not required by law. Electronically signed by: Rupesh Martell M.D. 05/14/2024 10:58 AM
[2024-05-14 11:08] LABS: Basophils # (auto) 0.04 K/uL (0.00-0.20); Basophils % (auto) 0.6 %; Eosinophils # (auto) 0.05 K/uL (0.00-0.50); Eosinophils % (auto) 0.7 %; Hematocrit (blood only) 34.9 % (42.0-52.0); Hemoglobin 10.4 g/dl (14.0-18.0); Immature Granulocytes # (auto) 0.04 K/uL (0.01-0.20); Immature Granulocytes % (auto) 0.6 %; Lymphocytes # (auto) 0.42 K/uL (1.20-3.40); Lymphocytes % (auto) 5.8 %; Mean Corpuscular Hemoglobin 27.3 pg (25.0-34.0); Mean Corpuscular Hgb Conc 29.8 g/dL (32.0-36.0); Mean Corpuscular Volume 91.6 fL (80.0-100.0); Mean Platelet Volume 9.3 fL (9.4-12.4); Monocytes # (auto) 0.26 K/uL (0.11-0.59); Monocytes % (auto) 3.6 %; Neutrophils # (auto) 6.42 K/uL (1.40-6.50); Neutrophils % (auto) 88.7 %; Platelet Count 441 K/uL (130-400); RDW Coefficient of Variation 15.8 % (11.5-14.5); RDW Standard Deviation 52.3 fL (36.4-46.3); Red Blood Count 3.81 M/uL (4.70-6.10); White Blood Count 7.23 K/ul (4.8-10.8)
[2024-05-14 11:27] LABS: Alanine Aminotransferase 3 U/L (7-52); Albumin Globulin Ratio 0.8 (0.9-2); Albumin Level 3.5 gm/dl (3.4-5.0); Alkaline Phosphatase 109 U/L (34-104); Anion Gap 17 (3-11); Aspartate Aminotransferase 10 U/L (13-39); BUN Creatinine Ratio 26.8 (10-20); Bilirubin,Total 0.6 mg/dl (0.2-1.0); Blood Urea Nitrogen 81 mg/dl (6-23); Calcium 9.7 mg/dl (8.6-10.3); Carbon Dioxide 17 mmol/L (21-32); Chloride 117 mmol/L (98-107); Globulin 4.3 gm/dl (2.5-4.0); Glucose 98 mg/dl (70-99(Fasting)); Potassium 4.9 mmol/L (3.5-5.1); Sodium 151 mmol/L (136-145); Total Protein 7.8 gm/dl (6.0-8.3)
[2024-05-14 11:38] LABS: Adenovirus PCR Not Detected (NotDetected); Bordetella parapertussis PCR Not Detected (NotDetected); Bordetella pertussis PCR Not Detected (NotDetected); Chlamydia pneumoniae PCR Not Detected (NotDetected); Coronavirus 229E PCR Not Detected (NotDetected); Coronavirus CoV-2 (COVID19)PCR DETECTED (NotDetected); Coronavirus HKU1 PCR Not Detected (NotDetected); Coronavirus NL63 PCR Not Detected (NotDetected); Coronavirus OC43PCR Not Detected (NotDetected); Human Metapneumovirus PCR Not Detected (NotDetected); Influenza A PCR Not Detected (NotDetected); Influenza B PCR Not Detected (NotDetected); Mycoplasma pneumoniae PCR Not Detected (NotDetected); Parainfluenza Virus 1 PCR Not Detected (NotDetected); Parainfluenza Virus 2 PCR Not Detected (NotDetected); Parainfluenza Virus 3 PCR Not Detected (NotDetected); Parainfluenza Virus 4 PCR Not Detected (NotDetected); Respiratory Syncytial VirusPCR Not Detected (NotDetected); Rhinovirus/Enterovirus PCR Not Detected (NotDetected)
[2024-05-14 11:41] LABS: Thyroid Stimulating Hormone 0.759 uIu/ml (0.300-4.500)
--- NOTE | 2024-05-14 12:13 | History & Physical Report ---
Date of Service May 14, 2024 Assessment & Plan (1) Weakness: Plan: Summary/assessment Patient is a 84-year-old male with a history of recent hip fracture s/p repair, CKD, failure to thrive, suprapubic catheter, ostomy who presents with volume contraction, poor appetite, and weakness without focal findings and he was COVID-positive. 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 He has had worsened weakness fatigue in the last week and will be treated with supportive care for COVID (no hypoxia, steroids/remdesivir is not indicated) and possible underlying UTI with UCx pending. Cefepime was used in the ER as patient has a history of pseudomonal UTIs. He is not septic on admission. PT/OT are pending COVID Patient is not hypoxic Chest x-ray: No acute findings Steroids and remdesivir not indicated in the absence of hypoxia. Supportive care PT/OT ordered Acute UTI versus chronic colonization. With suprapubic catheter. Concentrated urine with decreased urine output. UA is infected appearing without epithelial contamination, although may appear chronically infected due to catheter No abdominal pain History of pseudomonal infection. Will cover with cefepime and follow UCx Patient is not septic on admission CKD 4 Baseline creatinine approximately 2 Admitting creatinine elevated prerenal contraction versus borderline CLAYTON with creatinine 3.02 on admission [id number] on admission With volume contraction and poor p.o. intake Received 1 L NSS in the ER, additional fluids running at maintenance Trend BMP every 4 hours Anemia Anemia of chronic disease, at last admission iron studies consistent with AOCD. B12 normal. Folate low, supplementation ordered. Hemoglobin uptrending from prior, 10.4 without clinical signs of bleeding Type II DM Home Januvia and Lantus, A1c 7.5% 09/2023 Converted to basal bolus based on Lantus on admission pA-fib Eliquis continued Chronic stable issues: Rectal cancer 2018, s/p radiation, x-ray therapy. History of CVA 2023 Was discharged to [facility] at that time - Sacral ulcer: Present on admission. Ulcer precautions. Diet: Type II DM CODE STATUS: DNR/DNI Disposition: MSO DVT prophylaxis: Anticoagulated (2) COVID: (3) Atrial fibrillation: (4) (HFpEF) heart failure with preserved ejection fraction: History of Present Illness Primary Care Provider: Bisi Rhodes Gian is an 84-year-old male with a past medical history of HFrEF, CVA, hyperlipidemia, hypertension, obstructive uropathy, syncope, rectal cancer, closed right hip fracture with discharge 04/29/[address] Falk and with course complicated by acute on chronic anemia of chronic disease for which patient was transfused 1 unit during that admission who presents with weakness and failure to thrive. Patient presents to the ER with dehydration, generalized weakness, fatigue suspected to be due to COVID. He is not hypoxic. He is not tachycardic. Does not have leukocytosis. On ER evaluation he does have an CLAYTON with creatinine 3.02 with baseline approximately 2.32.5. History of ambulate at home and while he is not hypoxic is recommended for admission and placement. Gian seen at the bedside. He reports frustration with his nose and is feels tired and has not been eating. He reports he has not been very hungry in the last few days, additionally notes that when he was in the hospital they bring him a menu and ask him what he wants to eat 3 times a day however when he has been out of the hospital they have not done this and he has also had very little interest in the food that they do have available. Expresses that he would like a milkshake if possible and is interested in eating. He denies shortness of breath, cough, lightheadedness, dizziness, fever, chills at the bedside. No chest pain or chest pressure. Endorses feeling very tired and demoralized from his hospital stays in his illness but declines behavioral health/therapy consultation and notes that he has a therapist that he already talks to and does not have SI/HI. He does not have any additional questions or concerns at bedside. Denies dysuria but has been peeing less. Medical History: Reviewed Medications: Reviewed Surgical History: Reviewed Family history: Reviewed Allergies: Reviewed Social History: Reviewed Code Status: DNR/DNI Allergies Allergy/AdvReac Type Severity Reaction Status Date / Time atorvastatin [From Lipitor] Allergy Unknown Verified 03/22/24 13:32 Home Medications Medication Instructions Recorded Confirmed Type ferrous sulfate 325 mg (65 mg 325 mg PO QAM 02/24/18 05/14/24 History iron) tablet rosuvastatin 10 mg tablet 10 mg PO HS 02/24/18 05/14/24 History cyanocobalamin (vitamin B-12) 1,000 mcg PO DAILY 12/19/19 05/14/24 History 1,000 mcg tablet (Vitamin B-12) cholecalciferol (vitamin D3) 25 2,000 unit PO DAILY #180 tabs 04/25/20 05/14/24 Rx mcg (1,000 unit) tablet (Vitamin D3) trospium 60 mg capsule,extended 60 mg PO DAILYBB 04/18/23 05/14/24 History release 24 hr sitagliptin phosphate 50 mg tablet 50 mg PO DAILY 09/27/23 05/14/24 History (Januvia) docusate sodium 100 mg capsule 100 mg PO BID 10/13/23 05/14/24 History (Colace) insulin glargine 100 unit/mL (3 5 unit subcut PM 10/19/23 05/14/24 History mL) subcutaneous pen (Basaglar KwikPen U-100 Insulin) amlodipine 2.5 mg tablet 2.5 mg PO DAILY 10/22/23 05/14/24 History omeprazole 20 mg capsule,delayed 20 mg PO DAILY 10/22/23 05/14/24 History release insulin aspart U-100 100 unit/mL 1 sliding scale dose SC ACHS #10 mL 10/26/23 05/14/24 Rx subcutaneous solution (Novolog U-100 Insulin aspart) ondansetron HCl 4 mg tablet 4 mg PO Q8H PRN NAUSEA/VOMITING 11/07/23 05/14/24 History vibegron 75 mg tablet (Gemtesa) 75 mg PO DAILY 12/02/23 05/14/24 History apixaban 2.5 mg tablet (Eliquis) 2.5 mg PO BID #180 tabs 01/02/24 05/14/24 Rx fosfomycin tromethamine 3 gram 1 packet PO Q OTHER DAY 3 doses #3 01/24/24 05/14/24 Rx oral packet ea mupirocin 2 % topical ointment 1 applic EXT TID #30 grams 04/29/24 05/14/24 Rx triamcinolone acetonide 0.1 % 1 applic EXT TID PRN itching #30 04/29/24 05/14/24 Rx topical cream grams nitrofurantoin 100 mg PO UD 05/14/24 05/14/24 History monohydrate/macrocrystals 100 mg capsule quetiapine 25 mg tablet 25 mg PO DAILY 05/14/24 05/14/24 History Past Med/Surg History Problem List (Updated 05/14/24 @ 16:53 by Background Yoel) Acute UTI (Acute) CKD (chronic kidney disease) (Acute) Acute hypernatremia (Acute) COVID (Acute) Weakness (Acute) Laceration of scalp (Acute) Elevated troponin High anion gap metabolic acidosis Heart failure with reduced ejection fraction Acute CVA (cerebrovascular accident) (Acute) Leucocytosis (Acute) Non-ST elevation NM (NSTEMI) (Acute) Acute confusion (Acute) Generalized weakness (Acute) Pericardial effusion Cardiomegaly (Acute) Edema of right lower extremity (Acute) Rib pain (Acute) New onset atrial fibrillation (Acute) Fall (Acute) Food impaction of esophagus Esophageal abnormality (Acute) Vomiting (Acute) Skin lesion History of urinary retention Benign prostatic hyperplasia with urinary obstruction and other lower urinary tract symptoms (Acute) Hyperlipidemia (Acute) Hypertension (Acute) Urinary retention (Acute) Vitamin D deficiency Diabetes Diarrhea Obstructive uropathy (Chronic) Pre-syncope Rectal cancer (Chronic 06/17/17) "Rectal bleeding Status post colonoscopy and biopsy 06/17/2017 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 Plan for combined radiation and chemotherapy followed by possible resection Status post completion of combined radiation and chemotherapy August 30, 2017." On 07/07/17 13:09 Felicia Hannon wrote "Rectal bleeding Status post colonoscopy and biopsy 06/17/2017 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 Plan for combined radiation and chemotherapy followed by possible resection" Medical History Failure to thrive Acute blood loss anemia Pericardial effusion with cardiac tamponade History of stroke History of rectal cancer Pathological fracture of hip due to age-related osteoporosis Anticoagulated CHI (closed head injury) Closed right hip fracture Atrial fibrillation Chronic kidney disease, stage 4 (severe) Suprapubic catheter DM (diabetes mellitus), type 2 (HFpEF) heart failure with preserved ejection fraction Anticoagulant long-term use Recent cerebrovascular accident (CVA) Jewell UTI 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 Surgical History S/P skin biopsy Status post hip surgery Colostomy status Family History Other Family history non-contributory Social History Smoking Status: Never smoker Do You Dip or Chew Tobacco: No; Hx Alcohol Use: No Hx Substance Use: No Preferred Language: Citizen Of [place] Communication Ability: Effective Visual Impairment: No Limitations 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: Normal Adoption Worker Required: No Beliefs That Will Affect Care: None marital status: / Current Living Situation: Personal Care Facility Current Living Situation Comment: [employer] current occupational status: retired Other Information That Helps Us Care for You: No Feels Safe at Home: Yes Safety Concerns: Feels Safe At This Time Assistive Devices: Glasses and Walker Physical Exam Physical Exam: General: A&Ox3. NAD. Cooperative. HEENT: Atraumatic, normocephalic. Mucous membranes dry, cracked Pulm: CTAB A&P. -wheezes, -rales, -rhonchi. Symmetrical chest rise. No increased work of breathing. No respiratory distress. Cardiac: RRR, -mrg. Radial pulses intact and symmetrical. Abdominal:RLQ ostomy in place, no erythema/tenderness. Results & Data Results & Data Vital Signs (Past 12 Hours) Vital Signs Temp Pulse Pulse Resp BP BP Pulse Ox 05/14/24 11:30 76 20 147/90 H 99 05/14/24 10:45 95 H 20 97 05/14/24 09:44 36.3 C L 96 H 20 150/120 H 98 05/14/24 09:37 101 H O2 Del Method 05/14/24 11:30 Room Air 05/14/24 10:45 Room Air 05/14/24 09:44 Room Air 05/14/24 09:37 PG Care Time/CCT Total # of Minutes Spent Total Time Spent with Patient: Total time spent is greater than 50% in coordination of care (as documented) at patient's floor/unit and/or counseling patient: Coding Level of Care Code 18716 INT INP/OBS CARE 3/75MIN Diagnoses Weakness R53.1 COVID U07.1 Atrial fibrillation I48.91 (HFpEF) heart failure with preserved ejection fraction I50.30
[2024-05-14 12:18] LABS: Appearance Urine Turbid (Clear); Bacteria Urine Automated 4+ (None Seen); Bilirubin Urine Negative (Negative); Blood Urine 3+ (Negative); Color Urine Yellow; Epithelial Cell Urine Auto 0-2 /hpf (0-2); Glucose Urine UA Negative (Negative); Ketones Urine 1+ (Negative); Leukocyte Esterase Urine 3+ (Negative); Nitrite Urine Negative (Negative); Protein Urine 3+ (Negative); Specific Gravity Urine 1.017 (1.000-1.030); Urobilinogen Urine Negative (Negative); WBC Urine Automated >50 /hpf (0-5); pH Urine 5.5 (4.5-7.5)
--- NOTE | 2024-05-14 12:18 | XRay Report ---
XR hip RT 2V w pelvis CLINICAL HISTORY: Right hip surgery. COMPARISON: Right femur radiographs April 24, 2024. FINDINGS: There are stable postoperative findings following internal fixation of the intertrochanter ic fracture of the right femur. Hardware is intact. Slight irregularity of the right inferior pubic r amus remains unchanged. This is chronic. IMPRESSION: 1. Stable postoperative findings following internal fixation of the intertrochanteric fracture of the right femur. 2. No additional fractures within the pelvis or hips. ACT 112: Negative or not required by law. Electronically signed by: Rupesh Martell M.D. 05/14/2024 12:16 PM
[2024-05-14] MEDS ORDERED: POLYETHYLENE (MIRALAX) 17 GM PACK PO PRN (12:56)
[2024-05-14] MEDS ORDERED: cefTRIAXone SODIUM 1,000 MG/50 ML BAG IV ONE (13:15)
[2024-05-14] MEDS: ACETAMINOPHEN 325 MG TAB PO PRN (13:17)
[2024-05-14] MEDS: SODIUM CHLORIDE 0.9% 1,000 ML IV SCH (13:18)
[2024-05-14] MEDS ORDERED: DEXTROSE 50% 50 ML SYRINGE IV PRN (13:29)
[2024-05-14] MEDS ORDERED: CARBOHYDRATES FOR HYPOGLYCEMIA PO PRN (13:29)
[2024-05-14] MEDS ORDERED: GLUCAGON FOR INJ 1 MG VIAL SQ PRN (13:29)
[2024-05-14] MEDS ORDERED: GLUCOSE 40% GEL 15 GM TUBE PO PRN (13:29)
[2024-05-14] MEDS ORDERED: GLUCOSE 10 TAB/TUBE PO PRN (13:29)
[2024-05-14] MEDS: CEFEPIME 1000MG 1,000 MG/10 ML SYR IV ONE (14:12)
[2024-05-14 16:18] LABS: Anion Gap 12 (3-11); BUN Creatinine Ratio 27.2 (10-20); Blood Urea Nitrogen 88 mg/dl (6-23); Calcium 9.5 mg/dl (8.6-10.3); Carbon Dioxide 19 mmol/L (21-32); Chloride 120 mmol/L (98-107); Glucose 96 mg/dl (70-99(Fasting)); Potassium 5.2 mmol/L (3.5-5.1); Sodium 151 mmol/L (136-145)
--- NOTE | 2024-05-14 16:57 | Electrocardiogram Report ---
Test Reason : Blood Pressure : */* mmHG Vent. Rate : 104 BPM Atrial Rate : * BPM P-R Int : * ms QRS Dur : 88 ms QT Int : 342 ms P-R-T Axes : * -30 101 degrees QTcB Int : 449 ms Atrial fibrillation with rapid ventricular response Incomplete right bundle branch block Left axis deviation Nonspecific ST and T wave abnormality Abnormal ECG When compared with ECG of 24-Apr-2024 03:34, ST now depressed in Inferior leads Confirmed by Eric Dee ([id number]) on 05/14/2024 4:57:14 PM Referred By: REFERRED SELF Confirmed By: Eric Dee
[2024-05-14] MEDS: Patient's HEIGHT &/or WEIGHT Needed STA (17:15)
[2024-05-14] MEDS: INSULIN ASPART PER UNIT CHARGE SC SCH (17:53)
[2024-05-14 18:25] LABS: BUN Creatinine Ratio 27.2 (10-20); Calcium 9.1 mg/dl (8.6-10.3); Creatinine Clr Calc Pharmacy 17.2 ml/min; Potassium 4.6 mmol/L (3.5-5.1)
[2024-05-14] MEDS: DOCUSATE SODIUM 100 MG CAP PO SCH (21:18)
[2024-05-14] MEDS: LANTUS PER UNIT CHARGE SQ SCH (21:18)
[2024-05-14] MEDS: APIXABAN 2.5 MG TAB PO SCH (21:18)
[2024-05-14] MEDS: ROSUVASTATIN CALCIUM 10 MG TAB PO SCH (21:18)
[2024-05-14] MEDS: HYDROmorphone INJ 0.5 MG/0.5 ML SYR IV PRN (21:30)
[2024-05-15] MEDS: HYDROmorphone INJ 0.5 MG/0.5 ML SYR IV STA (02:51)
[2024-05-15] MEDS: OXYBUTYNIN CHLORIDE XL 5 MG TABCR PO SCH (05:43)
[2024-05-15 07:55] LABS: Basophils # (auto) 0.04 K/uL (0.00-0.20); Basophils % (auto) 0.4 %; Eosinophils # (auto) 0.07 K/uL (0.00-0.50); Eosinophils % (auto) 0.7 %; Hematocrit (blood only) 31.8 % (42.0-52.0); Hemoglobin 9.5 g/dl (14.0-18.0); Immature Granulocytes # (auto) 0.07 K/uL (0.01-0.20); Immature Granulocytes % (auto) 0.7 %; Lymphocytes # (auto) 0.33 K/uL (1.20-3.40); Lymphocytes % (auto) 3.5 %; Mean Corpuscular Hemoglobin 27.7 pg (25.0-34.0); Mean Corpuscular Hgb Conc 29.9 g/dL (32.0-36.0); Mean Corpuscular Volume 92.7 fL (80.0-100.0); Mean Platelet Volume 9.4 fL (9.4-12.4); Monocytes # (auto) 0.45 K/uL (0.11-0.59); Monocytes % (auto) 4.8 %; Neutrophils # (auto) 8.44 K/uL (1.40-6.50); Neutrophils % (auto) 89.9 %; Platelet Count 397 K/uL (130-400); RDW Coefficient of Variation 15.7 % (11.5-14.5); RDW Standard Deviation 53.1 fL (36.4-46.3); Red Blood Count 3.43 M/uL (4.70-6.10)
[2024-05-15 07:58] LABS: Calcium 9.2 mg/dl (8.6-10.3); Creatinine Clr Calc Pharmacy 19.6 ml/min; Potassium 4.7 mmol/L (3.5-5.1)
[2024-05-15] MEDS: CYANOCOBALAMIN (B-12) 500 MCG TABLET PO SCH (08:38)
[2024-05-15] MEDS: amLODIPine BESYLATE 5 MG TAB PO SCH (08:38)
[2024-05-15] MEDS: CHOLECALCIFEROL 25 MCG (1000 UNITS) TAB PO SCH (08:38)
[2024-05-15] MEDS: TRIAMCINOLONE ACET 0.1% CR 15 GM TUBE EXT PRN (08:39)
[2024-05-15] MEDS: QUEtiapine FUMARATE 25 MG TABLET PO SCH (09:47)
[2024-05-15] MEDS: PANTOprazole 40 MG TAB PO SCH (09:47)
[2024-05-15] MEDS: VIBEGRON 75 MG TAB PO SCH (09:47)
[2024-05-15] MEDS: FERROUS SULFATE 325 MG TAB PO SCH (09:47)
[2024-05-15] MEDS: SODIUM CHLORIDE 0.45 % 1,000 ML IV SCH (11:03)
[2024-05-15] MEDS ORDERED: cefTRIAXone SODIUM 1,000 MG/50 ML BAG IV SCH (13:00)
[2024-05-15] MEDS: CEFEPIME 1000MG 1,000 MG/10 ML SYR IV SCH (13:51)
--- NOTE | 2024-05-15 16:46 | Hospitalist Progress Note ---
Date of Service May 15, 2024 Assessment & Plan (1) Weakness: Plan: Presented with generalized weakness, poor appetite, and dehydration x few days. Recent hip fracture s/p repair in beginning of April 2024 and was discharged to [facility] at that time. - Suspect multifocal due to: Covid positive on arrival, possible acute UTI, hypernatremia, and physical deconditioning - PT/OT consulted. Suspect patient will need further rehab on discharge (2) Acute hypernatremia: Plan: Hypernatremic in setting of volume contraction and poor p.o. intake - Continue maintenance IV fluids with hypotonic NSS x 24 hours - No mental status changes or neurological signs noted - Monitor BMP with AM labs (3) COVID: Plan: COVID positive on admission - Chest x-ray: No acute findings - Steroids and remdesivir not indicated in the absence of hypoxia - Supportive care (4) Acute UTI: Plan: Acute UTI versus chronic colonization with suprapubic catheter - Concentrated urine with decreased urine output on admission - UA is infected appearing without epithelial contamination, although may appear chronically infected due to catheter - History of pseudomonal and Klebsiella UTIs - Urine culture preliminarily growing Klebsiella pneumoniae - Continue cefepime and follow UCx (5) Diabetes mellitus type 2, controlled: Plan: Home Januvia and Lantus - A1c 7.5% 09/2023 - Converted to basal bolus with SSI --Goal BSG Range: Low 110 mg/dL, High 180 mg/dL --Correction Factor: 40 mg/dL/unit --Carbohydrate ratio = 20 g/unit --BSGs ACHS if eating, q6h if npo Plan Adjusted IV fluids Chronic stable issues: - A-fib: Continue Eliquis - Anemia: Iron studies consistent with anemia of chronic disease. B12 normal. Folate low, supplementation continued - Rectal cancer 2018, s/p radiation, x-ray therapy. - Sacral ulcer: Present on admission. Ulcer precautions. DVT prophylaxis: Anticoagulated CODE STATUS: DNR/DNI Admission and Anticipated Discharge Date Admission Date: May 14, 2024 Supervising Physician Co-Signing Physician Notes The patient was not seen by me. The chart was reviewed. Case discussed with JERONIMO Munoz. Agree with assessment and plan Subjective Patient seen and evaluated at bedside. He was irritated during my evaluation but denied any urinary symptoms at this time, shortness of breath, cough, chest pain, or headache. He has not yet been evaluated by PT/OT. Physical Exam Physical Exam: General: No acute distress, nondiaphoretic, well-developed, well-nourished. Irritated mood. Skin: The skin was without rashes, erythema, edema, or bruising. Cardiac: Irregularly irregular in the 70s without murmurs gallops or rubs. Pulm: Clear to auscultation bilaterally without wheezes, rales or rhonchi. No respiratory distress. 100% on room air. Abdominal: Soft, nontender, nondistended. Bowel sounds present. Ostomy bag in place right abdomen, brown stool present in bag. : Suprapubic catheter in place, no surrounding erythema or discharge. Neuro: A&O x3. No focal neurological deficits. Results & Data Results & Data Vital Signs (Past 12 Hours) Vital Signs Temp Pulse Resp BP Pulse Ox O2 Del Method 05/15/24 16:26 97.3 F L 91 H 18 139/77 99 Room Air 05/15/24 09:27 Room Air 05/15/24 07:00 97.7 F 79 20 144/82 H 98 Room Air Laboratory Results Reviewed CBC Reviewed BMP Reviewed urine culture PG Care Time/CCT Total # of Minutes Spent Total Time Spent with Patient: Total time spent is greater than 50% in coordination of care (as documented) at patient's floor/unit and/or counseling patient: Coding Level of Care Code 58336 SUB INP/OBS CARE 3/50MIN Diagnoses Weakness R53.1 Acute hypernatremia E87.0 COVID U07.1 Acute UTI N39.0 Diabetes mellitus type 2, controlled E11.9
[2024-05-16 07:40] LABS: Basophils # (auto) 0.03 K/uL (0.00-0.20); Basophils % (auto) 0.4 %; Eosinophils # (auto) 0.15 K/uL (0.00-0.50); Eosinophils % (auto) 1.8 %; Hematocrit (blood only) 30.1 % (42.0-52.0); Immature Granulocytes # (auto) 0.05 K/uL (0.01-0.20); Immature Granulocytes % (auto) 0.6 %; Lymphocytes # (auto) 0.39 K/uL (1.20-3.40); Lymphocytes % (auto) 4.7 %; Mean Corpuscular Hemoglobin 27.4 pg (25.0-34.0); Mean Corpuscular Hgb Conc 29.9 g/dL (32.0-36.0); Mean Corpuscular Volume 91.8 fL (80.0-100.0); Mean Platelet Volume 9.7 fL (9.4-12.4); Monocytes # (auto) 0.46 K/uL (0.11-0.59); Monocytes % (auto) 5.5 %; Neutrophils # (auto) 7.24 K/uL (1.40-6.50); Platelet Count 358 K/uL (130-400); RDW Coefficient of Variation 15.9 % (11.5-14.5); RDW Standard Deviation 53.2 fL (36.4-46.3); Red Blood Count 3.28 M/uL (4.70-6.10); White Blood Count 8.32 K/ul (4.8-10.8)
[2024-05-16 07:54] LABS: BUN Creatinine Ratio 26.4 (10-20); Calcium 9.1 mg/dl (8.6-10.3); Creatinine Clr Calc Pharmacy 22.4 ml/min; Potassium 4.3 mmol/L (3.5-5.1)
[2024-05-16] MEDS: D5W AND 0.2% NaCL 1,000 ML IV SCH (08:45)
--- NOTE | 2024-05-16 08:55 | Hospitalist Progress Note ---
Date of Service May 16, 2024 Assessment & Plan (1) Weakness: Plan: Presented with generalized weakness, poor appetite, and dehydration x few days. Recent hip fracture s/p repair in beginning of April 2024 and was discharged to [facility] at that time. - Suspect multifocal due to: Covid positive on arrival, possible acute UTI, hypernatremia, and physical deconditioning - PT/OT consulted. Patient is a bed hold at [facility] (2) Acute hypernatremia: Plan: Hypernatremic in setting of volume contraction and poor p.o. intake - Hypernatremia persists despite 24 hours of hypotonic NSS - Start D5W and 0.2% NaCl x 24 hours - No mental status changes or neurological signs noted - Monitor BMP with AM labs (3) COVID: Plan: COVID positive on admission - Chest x-ray: No acute findings - Steroids and remdesivir not indicated in the absence of hypoxia - Supportive care (4) Acute UTI: Plan: Acute UTI versus chronic colonization with suprapubic catheter. Suspected CAUTI - Concentrated urine with decreased urine output on admission - UA is infected appearing without epithelial contamination, although may appear chronically infected due to catheter - History of pseudomonal and Klebsiella UTIs - Urine culture preliminarily growing pansensitive Klebsiella pneumoniae - Downgraded to Augmentin (previously on cefepime) (5) Diabetes mellitus type 2, controlled: Plan: Home Januvia and Lantus - A1c 7.5% 09/2023 - Converted to basal bolus with SSI --Goal BSG Range: Low 110 mg/dL, High 180 mg/dL --Correction Factor: 40 mg/dL/unit --Carbohydrate ratio = 20 g/unit --BSGs ACHS if eating, q6h if npo Plan Updated son at bedside Adjusted IV fluids Adjusted antibiotics Chronic stable issues: - A-fib: Continue Eliquis - Anemia: Iron studies consistent with anemia of chronic disease. B12 normal. Folate low, supplementation continued - Rectal cancer 2018, s/p radiation, x-ray therapy. - Sacral ulcer: Present on admission. Ulcer precautions. DVT prophylaxis: Anticoagulated CODE STATUS: DNR/DNI Admission and Anticipated Discharge Date Admission Date: May 14, 2024 Supervising Physician Co-Signing Physician Notes The patient was not seen by me. The chart was reviewed. Case discussed with JERONIMO Munoz. Agree with assessment and plan Subjective Patient seen and evaluated at bedside with his son present. He remains agitated and irritable during my visit and RN reports the same. Patient denies any respiratory or urinary complaints. He states that he did not like the breakfast he was given. Son reports this is his baseline attitude. Updated son on treatment plan. No additional complaints or concerns at this time. Physical Exam Physical Exam: General: No acute distress, nondiaphoretic, well-developed, well-nourished. Irritated mood. Skin: The skin was without rashes, erythema, edema, or bruising. Cardiac: Irregularly irregular in the 70s without murmurs gallops or rubs. Pulm: Clear to auscultation bilaterally without wheezes, rales or rhonchi. No respiratory distress. 98% on room air. Abdominal: Soft, nontender, nondistended. Bowel sounds present. Ostomy bag in place right abdomen. : Suprapubic catheter in place, no surrounding erythema or discharge. Neuro: A&O x3. No focal neurological deficits. Results & Data Results & Data Vital Signs (Past 12 Hours) Vital Signs Temp Pulse Resp BP Pulse Ox O2 Del Method 05/16/24 07:55 98.1 F 85 18 159/92 H 98 Room Air Laboratory Results Reviewed CBC Reviewed BMP Reviewed urine culture PG Care Time/CCT Total # of Minutes Spent Total Time Spent with Patient: Total time spent is greater than 50% in coordination of care (as documented) at patient's floor/unit and/or counseling patient: Coding Level of Care Code 65288 SUB INP/OBS CARE 3/50MIN Diagnoses Weakness R53.1 Acute hypernatremia E87.0 COVID U07.1 Acute UTI N39.0 Diabetes mellitus type 2, controlled E11.9
[2024-05-16] MEDS: AMOXICILLIN/CLAVULANATE 500 MG TAB PO SCH (17:21)
--- NOTE | 2024-05-17 08:42 | Hospitalist Progress Note ---
Date of Service May 17, 2024 Assessment & Plan (1) Weakness: Plan: Presented with generalized weakness, poor appetite, and dehydration x few days. Recent hip fracture s/p repair in beginning of April 2024 and was discharged to [facility] at that time. Suspect multifocal: Covid positive on arrival, possible acute UTI, hypernatremia, and physical deconditioning 05/17 Augmentin continued for urinary coverage IVF continued w/ D5NS x1 additional liter. PO hydration encouraged. Will see about adding remeron if appetite continues to be poor with hydration and tx UTI. Folate PO replacement added, ?contributing to things tasting weirdly. PT/OT consults placed for today for completeness given bed hold at [facility] in [place]. (2) Acute UTI: Plan: Acute UTI versus chronic colonization with suprapubic catheter. Suspected CAUTI Decreased UOP on admission w/ concentrated urine, no epithelial cells/contamination. Hx pseduomonas/klebsiella UTIs. Suspected 2nd to infection w/ poor PO intake above/failure to thrive Also with CLAYTON w/ Cr to 3.24 above baseline in the 2.3-2.7 range recently Placed on Cefepime initially 05/14 --> transitioned to AUGMENTIN 05/16 to complete course (at least 7 days given CAUTI, cx w/ pansensitive klebsiella) -- EOT 05/21 for 7 day course, can consider extension to 10 days if needed IVF hydration as outlined, renal function improving (BUN/Cr 46/2.06) and additional 1L ordered/PO hydration encouraged and will continue to monitor Renal dose meds/avoid toxins as able BMP in AM (3) COVID: Plan: COVID positive on admission Chest x-ray: No acute findings Steroids and remdesivir not indicated in the absence of hypoxia and remains on RA, 96% Incentive spirometry ordered, supportive care (4) Acute hypernatremia: Plan: Hypernatremic in setting of volume contraction and poor p.o. intake. No AMS/neurological signs, just weakness Hypernatremia persisted despite 24 hours of hypotonic NSS Ordered D5W 1/2 NSS @ 80cc/hr on 05/16 --> Na improved to 146 --> Extended D5 w/ 1/2 NS @ 70cc/hr for another 1L given poor PO intake and will monitor repeat level (5) Diabetes mellitus type 2, controlled: Plan: Home Januvia and Lantus - A1c 7.5% 09/2023 - Converted to basal bolus with SSI --Goal BSG Range: Low 110 mg/dL, High 180 mg/dL --Correction Factor: 40 mg/dL/unit --Carbohydrate ratio = 20 g/unit --BSGs ACHS if eating, q6h if npo (6) Folate deficiency: Plan: Prior reports failure to thrive during hospitalization from earlier this month due to lack of taste (not surprising w/ +COVID testing) but folate level also checked with his anemia and was LOW and started on PO supplementation --> does not appear to have been continued at [facility] to rehab and not ordered on admission, will plan to resume 1mg PO daily [facility] (7) CLAYTON (acute kidney injury): Plan: as above, improving with tx UTI and hydration. not on any diuretics at baseline Plan Chronic stable issues: A-fib: Continue Eliquis Anemia: Iron studies consistent with anemia of chronic disease. B12 normal. Folate low, supplementation resumed/continued as above Rectal cancer 2018, s/p radiation, x-ray therapy. Sacral ulcer: Present on admission. Ulcer precautions.PPI once daily continued * Of note, prior admission noting CT Chest 09/2023: "Several nodular opacities within the lower lobes and groundglass opacities, new since prior chest CT. These favor a mild infectious process although are indeterminate. A follow-up chest CT in 3 months to ensure resolution is recommended." * Will defer repeat to PCP in f/u at [facility] but can be considered if ongoing issues/continued inpatient stay Dispo: continued inpatient stay, IVF/hydration continued. Augmentin PO to complete course for CAUTI. Folate PO resumed/continued for deficiency. Consideration for remeron if needed for mood/appetite if intake continues to be poor. Eliquis continued for DVT proph. Updated son at bedside previously, no one in room today 05/17 -->Pt is bed hold at [facility]. PT/OT consults placed, CM to follow. Admission and Anticipated Discharge Date Admission Date: May 14, 2024 Supervising Physician Co-Signing Physician Notes The patient was not seen by me. The chart was reviewed. Case discussed with JERONIMO Brandt. Agree with assessment and plan Subjective Eval this morning, resting in bed, NAD. Ongoing poor appetite, have offered alternative choices. He denies wanting anything specific. No labs back yet, IVF have been restarted in the meantime. Marks in place, slightly cloudy but yellow appearance. Getting abx for UTI, now switched to oral Augmentin to complete the course. Does appear slightly depressed, support provided. Wanted a warm blanket/covered up, was done. Denies CP/SOB at this time, remains on room air. Physical Exam 2 Physical Exam: General: 84yo male sitting in bed, NAD, flat affect/reporting feeling cold, irritated about being in the hospital HEENT: head atraumatic, normocephalic, mm slightly dry, trachea midline Resp: even/unlabored, slightly diminished in the bases, no significant wheezing/rales/cough, 96% on RA CV: : Irregularly irregular in the 70s, without murmurs gallops or rubs. GI: +BS, ostomy intact/functioning : suprapubic catheter in place, concentrated urine in bag MSK/Neuro: nonfocal but generalized weakness Psych: AOx3, flat affect/depressed at times Results & Data Results & Data Vital Signs (Past 12 Hours) Vital Signs Temp Pulse Resp BP Pulse Ox O2 Del Method 05/17/24 07:40 36.7 C 68 18 123/79 96 Room Air Laboratory Results 05/17/24 11:58 PG Care Time/CCT Total # of Minutes Spent Total Time Spent with Patient: Total time spent is greater than 50% in coordination of care (as documented) at patient's floor/unit and/or counseling patient: Coding Level of Care Code 87441 SUB INP/OBS CARE 3/50MIN Diagnoses Weakness R53.1 Acute UTI N39.0 COVID U07.1 Acute hypernatremia E87.0 Diabetes mellitus type 2, controlled E11.9 Folate deficiency E53.8 CLAYTON (acute kidney injury) N17.9
[2024-05-17] MEDS: FOLIC ACID 1 MG TAB PO SCH (11:12)
[2024-05-17] MEDS: D5W AND 1/2NSS 1,000 ML IV SCH (12:21)
[2024-05-17 12:29] LABS: Basophils # (auto) 0.03 K/uL (0.00-0.20); Basophils % (auto) 0.3 %; Eosinophils % (auto) 2.3 %; Hemoglobin 8.7 g/dl (14.0-18.0); Immature Granulocytes # (auto) 0.06 K/uL (0.01-0.20); Immature Granulocytes % (auto) 0.7 %; Lymphocytes # (auto) 0.52 K/uL (1.20-3.40); Mean Corpuscular Hemoglobin 26.9 pg (25.0-34.0); Mean Corpuscular Volume 89.8 fL (80.0-100.0); Mean Platelet Volume 9.9 fL (9.4-12.4); Monocytes # (auto) 0.53 K/uL (0.11-0.59); Monocytes % (auto) 6.2 %; Neutrophils # (auto) 7.26 K/uL (1.40-6.50); Neutrophils % (auto) 84.5 %; Platelet Count 319 K/uL (130-400); RDW Coefficient of Variation 15.9 % (11.5-14.5); RDW Standard Deviation 52.4 fL (36.4-46.3); Red Blood Count 3.23 M/uL (4.70-6.10)
[2024-05-17 12:45] LABS: BUN Creatinine Ratio 22.3 (10-20); Calcium 8.5 mg/dl (8.6-10.3); Creatinine Clr Calc Pharmacy 25.1 ml/min; Potassium 3.9 mmol/L (3.5-5.1)
[2024-05-17 13:05] LABS: Ferritin 312.2 ng/ml (8-388)
[2024-05-17] MEDS: oxyCODONE HCL IR 5 MG TAB (IMMEDIATE RELEASE) PO PRN (19:23)
--- NOTE | 2024-05-18 07:52 | Hospitalist Progress Note ---
Date of Service May 18, 2024 Assessment & Plan (1) Weakness: Plan: Presented with generalized weakness, poor appetite, and dehydration x few days. Recent hip fracture s/p repair in beginning of April 2024 and was discharged to [facility] at that time. Suspect multifocal: Covid positive on arrival, possible acute UTI, hypernatremia, and physical deconditioning 05/18 Augmentin continued for urinary coverage, plan for 7 day course. Provided additional 1L D5 1/2 NS last evening and Na had improved. Declined labs today. Nursing attempted to get out of bed last evening, went poorly. Discussed w/ son and palliative consultation placed, possible dc to [facility]/palliative at [place] if continued failure to thrive. DNR confirmed. Did discuss ? any new meds. Son unsure. Review fills appears seroquel was recently started at [facility]. ?if for . Per UTD, can contribute to dysgeusia. Given such, will plan to HOLD seroquel. Will attempt low dose remeron 7.5mg for appetitie/mood and will monitor CM to follow pending palliaitve consultation as patient bedhold at [facility] (2) Acute UTI: Plan: Acute UTI versus chronic colonization with suprapubic catheter. Suspected CAUTI Decreased UOP on admission w/ concentrated urine, no epithelial cells/contamination. Hx pseduomonas/klebsiella UTIs. Suspected 2nd to infection w/ poor PO intake above/failure to thrive Also with CLAYTON w/ Cr to 3.24 above baseline in the 2.3-2.7 range recently Placed on Cefepime initially 05/14--> transitioned to AUGMENTIN 05/16 to complete course (at least 7 days given CAUTI, cx w/ pansensitive klebsiella) -- EOT 05/21 for 7 day course Catheter exchanged 05/10 at urology office IVF hydration as above, renal function w/ Cr back to 2.0 and encouraged PO hydration. Refused labs but urine looks good and will hold off additonal IVF for now Renal dose meds/avoid toxins as able.Monitor BMP (3) COVID: Plan: COVID positive on admission Chest x-ray: No acute findings Steroids and remdesivir not indicated in the absence of hypoxia and remains on RA, 97% Incentive spirometry ordered, supportive care could be contributing to taste/appetite as well (4) Acute hypernatremia: Plan: Hypernatremic in setting of volume contraction and poor p.o. intake. No AMS/neurological signs, just weakness Hypernatremia persisted despite 24 hours of hypotonic NSS Ordered D5W 1/2 NSS @ 80cc/hr on 05/16 x 1 L w/ improvement in Na to 146 and additional 1L provided. Labs declined today and hydration seems stable and will defer for now. PO hydration encouraged. Remeron start as above (5) Diabetes mellitus type 2, controlled: Plan: Home Januvia and Lantus - A1c 7.5% 09/2023 - Converted to basal bolus with SSI --Goal BSG Range: Low 110 mg/dL, High 180 mg/dL --Correction Factor: 40 mg/dL/unit --Carbohydrate ratio = 20 g/unit --BSGs ACHS if eating, q6h if npo (6) Folate deficiency: Plan: Prior reports failure to thrive during hospitalization from earlier this month due to lack of taste (not surprising w/ +COVID testing) but folate level also checked with his anemia and was LOW and started on PO supplementation --> does not appear to have been continued at [facility] to rehab and not ordered on admission, will plan to resume 1mg PO daily SHOULD BE CONTINUED AT [facility] (7) CLAYTON (acute kidney injury): Plan: as above, improved with tx UTI and hydration back to baseline. not on any diuretics at baseline. PO hydration encouraged Plan Chronic stable issues: A-fib: Continue Eliquis Anemia: Iron studies consistent with anemia of chronic disease. B12 normal. Folate low, supplementation resumed/continued as above Rectal cancer 2018, s/p radiation, x-ray therapy. Sacral ulcer: Present on admission. Ulcer precautions.PPI once daily continued * Of note, prior admission noting CT Chest 09/2023: "Several nodular opacities within the lower lobes and groundglass opacities, new since prior chest CT. These favor a mild infectious process although are indeterminate. A follow-up chest CT in 3 months to ensure resolution is recommended." * Will defer repeat to PCP in f/u at [facility] but can be considered if ongoing issues/continued inpatient stay Dispo: continued inpatient stay, palliative consultation placed. HOLDING SEROQUEL as can cause dysgeusia, added low dose remeron for mood/sleep. Augmentin continued for CAUTI. Updated son at bedside. CM to follow as is bed hold at [facility]. Admission and Anticipated Discharge Date Admission Date: May 14, 2024 Supervising Physician Co-Signing Physician Notes The patient was not seen by me. The chart was reviewed. Case discussed with JERONIMO Brandt. Agree with assessment and plan Subjective eval this morning, frustrated, fatigued. did eat some breakfast, reports he ate some hamburger last night but son reports he did not. Patient knows in hospital, year but doesn't want to tell me. Knows Kim just happened. Discussed ongoing prognosis if not able/willing to eat and participate in therapy and son has POLST form, tearful but reports he thinks this is the end. Discussed palliative consultation and will see if able to see/discuss today given patient is bed hold. Support provided. Encouraged day/night schedules, inquired about any new meds that could be contributing to taste like seroquel however son unsure if new. Physical Exam 2 Physical Exam: General: 84yo male sitting in bed, NAD, flat affect/reporting feeling cold, provided warm blankets, son in room, fatigued/irritable but did report having some breakfast HEENT: head atraumatic, normocephalic, mm slightly dry but improved compared to yesterday, trachea midline Resp: even/unlabored, slightly diminished in the bases, no significant wheezing/rales/cough, 96% on RA CV: : Irregularly irregular in the 60s, without murmurs gallops or rubs. GI: +BS, ostomy intact/functioning, dark brown liquid output : suprapubic catheter in place, concentrated urine in bag MSK/Neuro: nonfocal but generalized weakness, sacral wound present Psych: AOx3, flat affect/depressed at times Results & Data Results & Data Vital Signs (Past 12 Hours) Vital Signs Temp Pulse Resp BP Pulse Ox O2 Del Method 05/17/24 19:17 36.8 C 89 19 158/83 H 98 Room Air 05/17/24 16:42 36.5 C 89 18 142/70 H 97 Room Air 05/17/24 16:00 Room Air 05/17/24 08:30 Room Air Intake and Output 05/17/24 05/18/24 05/18/24 22:59 06:59 14:59 Intake Total 1000 / 2000 Output Total 300 / 800 500 / 800 Balance -300 / 1200 500 / 1200 Intake: IV 1000 / 2000 D5w and 1/2Nss 1,000 ml @ 70 1000 / 1000 mls/hr IV .[id number] [facility] Rx#: [id number] Output: Urine Amount (Catheter) 150 / 550 400 / 550 Suprapubic 150 / 550 400 / 550 Gastric Drainage 150 / 250 100 / 250 Ileostomy/Colostomy 150 / 250 100 / 250 Laboratory Results 05/17/24 11:58 05/17/24 11:58 PG Care Time/CCT Total # of Minutes Spent Total Time Spent with Patient: Total time spent is greater than 50% in coordination of care (as documented) at patient's floor/unit and/or counseling patient: Coding Level of Care Code 67300 SUB INP/OBS CARE 3/50MIN Diagnoses Weakness R53.1 Acute UTI N39.0 COVID U07.1 Acute hypernatremia E87.0 Diabetes mellitus type 2, controlled E11.9 Folate deficiency E53.8 CLAYTON (acute kidney injury) N17.9
--- NOTE | 2024-05-18 20:01 | Palliative Care Consultation ---
Date of Consultation May 18, 2024 Assessment & Plan (1) Palliative care by specialist: (2) Counseling regarding advanced directives and goals of care: Plan Patient is a 84-year-old male with a history of recent hip fracture s/p repair, CKD, failure to thrive, suprapubic catheter, ostomy who admitted with dehydration, poor appetite, and weakness. He is COVID-positive (steroids/remdesivir not indicated). Assessed pt at bedside, he was awake and alert but withdrawn. He was not cooperative in conversation enough to indicate decisional capacity. He deferred any conversation to his son Ricardo. Phone conversation held with the pt's son, 40 minutes were spent discussing pt's values, advanced directive, goals of care and advanced care planning. Ricardo shared that he is pt's HCPOA as well as durable financial POA. Shared with Ricardo that the hospital does not have written documentation of patient wishes concerning his chosen proxy for medical decisions. Per PA [id number], in absence of written documentation of patient wishes, pt's proxy for medical decisions would be his adult children with equal decisional power. Ricardo shared that he has document and agrees to bring it to hospital. He shared that the patient has a estranged son whom does not want to be involved. Ricardo shared that the pt's other listed contact, Dominga Quentin, is pt's best friend. Ricardo lives in [place] and shared that Dominga is the only person that the pt has locally to rely on. Ricardo shared concern that the pt has had progressive cognitive decline and multiple falls over past several months and he worries that it is no longer safe for pt to live independently. He shared that [facility] is holding a room for pt and assured him that they could provide the level of care pt requires. He shared that he was advised to get a wireless medical alert button on [employer] that could alert staff in their breakroom. Ricardo requests information about potential for discharge to higher level of care to ensure pt safety given his confusion and progressive functional decline. He shared that the pt has been "making many unwise financial decisions and not paying his bills", with risk of utilities being shut off. Discussed with Ricardo that discharge disposition is still pending PT/OT ev aluation and medical clearance. He shared that he would like pt discharged to SNF or IPR with hopes that he might improve and have "10 good years left in him". Ricardo shared hope that the patient's appetite will improve with new medications and his strength will improve with better PO intake. He questioned need for feeding tube and shared that his father would not tolerate a PEG tube. He shared that he would like to see how pt does over weekend and revisit GOC on Tuesday. He said that nick is currently preoccupied with his father's domestic affairs and getting his bills settled and heat turned back on. Palliative care will continue to follow and be available for ongoing GOC discussions. History of Present Illness Reason for Consultation: goals of care Requesting Physician: Russell Mon MD Attending Physician: Russell Mon MD History of Present Illness Gian Bhakta is an 84-year-old male with a PMHx of HFrEF, CVA, hyperlipidemia, hypertension, obstructive uropathy, syncope, rectal cancer, closed right hip fracture with discharge 04/29/[address] Falk. Post- operative course complicated by acute on chronic anemia of chronic disease requiring transfusion of 1 unit PRBCs. He presented to ED on 05/14/24 with dehydration, generalized weakness, fatigue suspected to be due to COVID. He has been admitted for medical management. Allergies Allergy/AdvReac Type Severity Reaction Status Date / Time atorvastatin [From Lipitor] Allergy Unknown Verified 03/22/24 13:32 Home Medications Medication Instructions Recorded Confirmed Type ferrous sulfate 325 mg (65 mg 325 mg PO QAM 02/24/18 05/14/24 History iron) tablet rosuvastatin 10 mg tablet 10 mg PO HS 02/24/18 05/14/24 History cyanocobalamin (vitamin B-12) 1,000 mcg PO DAILY 12/19/19 05/14/24 History 1,000 mcg tablet (Vitamin B-12) cholecalciferol (vitamin D3) 25 2,000 unit PO DAILY #180 tabs 04/25/20 05/14/24 Rx mcg (1,000 unit) tablet (Vitamin D3) trospium 60 mg capsule,extended 60 mg PO DAILYBB 04/18/23 05/14/24 History release 24 hr sitagliptin phosphate 50 mg tablet 50 mg PO DAILY 09/27/23 05/14/24 History (Januvia) docusate sodium 100 mg capsule 100 mg PO BID 10/13/23 05/14/24 History (Colace) insulin glargine 100 unit/mL (3 5 unit subcut PM 10/19/23 05/14/24 History mL) subcutaneous pen (Basaglar KwikPen U-100 Insulin) amlodipine 2.5 mg tablet 2.5 mg PO DAILY 10/22/23 05/14/24 History omeprazole 20 mg capsule,delayed 20 mg PO DAILY 10/22/23 05/14/24 History release insulin aspart U-100 100 unit/mL 1 sliding scale dose SC ACHS #10 mL 10/26/23 05/14/24 Rx subcutaneous solution (Novolog U-100 Insulin aspart) ondansetron HCl 4 mg tablet 4 mg PO Q8H PRN NAUSEA/VOMITING 11/07/23 05/14/24 History vibegron 75 mg tablet (Gemtesa) 75 mg PO DAILY 12/02/23 05/14/24 History apixaban 2.5 mg tablet (Eliquis) 2.5 mg PO BID #180 tabs 01/02/24 05/14/24 Rx fosfomycin tromethamine 3 gram 1 packet PO Q OTHER DAY 3 doses #3 01/24/24 05/14/24 Rx oral packet ea mupirocin 2 % topical ointment 1 applic EXT TID #30 grams 04/29/24 05/14/24 Rx triamcinolone acetonide 0.1 % 1 applic EXT TID PRN itching #30 04/29/24 05/14/24 Rx topical cream grams nitrofurantoin 100 mg PO UD 05/14/24 05/14/24 History monohydrate/macrocrystals 100 mg capsule quetiapine 25 mg tablet 25 mg PO DAILY 05/14/24 05/14/24 History Patient History Medical History Failure to thrive Acute blood loss anemia Pericardial effusion with cardiac tamponade History of stroke History of rectal cancer Pathological fracture of hip due to age-related osteoporosis Anticoagulated CHI (closed head injury) Closed right hip fracture Atrial fibrillation Chronic kidney disease, stage 4 (severe) Suprapubic catheter DM (diabetes mellitus), type 2 (HFpEF) heart failure with preserved ejection fraction Anticoagulant long-term use Recent cerebrovascular accident (CVA) Jewell UTI 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 Surgical History S/P skin biopsy Status post hip surgery Colostomy status Family History Other Family history non-contributory Social History Smoking Status: Never smoker Do You Dip or Chew Tobacco: No; Hx Alcohol Use: No Hx Substance Use: No Preferred Language: [place] Communication Ability: Effective Visual Impairment: No Limitations 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: Normal Hand Kiss Setter Required: No Beliefs That Will Affect Care: None marital status: / Current Living Situation: Personal Care Facility Current Living Situation Comment: [facility] current occupational status: retired Other Information That Helps Us Care for You: No Feels Safe at Home: Yes Safety Concerns: Feels Safe At This Time Assistive Devices: Walker Review of Systems Review of Systems: Unobtainable due to cognitive status Physical Exam Physical Exam: General: No acute distress, well-developed, well-nourished. . Skin: The skin was without rashes, erythema, edema, or bruising. Cardiac: Irregularly irregular in the 70s without murmurs gallops or rubs. Pulm: diminished, CTAi. No respiratory distress. 98% on room air. Abdominal: Soft, nontender, nondistended. Bowel sounds present. Ostomy bag in place right abdomen. : Suprapubic catheter in place, no surrounding erythema or discharge. Neuro: AAOx3. No focal neurological deficits. Results & Data Vital Signs (Past 12 Hours) Vital Signs Temp Pulse Resp BP Pulse Ox O2 Del Method 05/18/24 10:00 Room Air 05/18/24 08:15 36.7 C 67 18 163/87 H 97 Room Air Laboratory Results Abnormal lab results 05/17/24 05/18/24 05/18/24 Range/Units 21:07 08:05 12:40 POC Glucose 187 H 131 H 152 H (70-99) mg/dl 05/18/24 Range/Units 17:57 POC Glucose 114 H (70-99) mg/dl Diagnostic Findings Chest X-Ray 05/14/24 10:40 XR chest 1V portable CLINICAL HISTORY: weakness COMPARISON STUDY: Chest CT September 27, 2023. Chest radiograph April 24, 2024. FINDINGS: Old bilateral rib fractures and an old proximal left humeral fracture are incidentally noted. There is no pneumothorax or pleural effusion. There is no consolidation or evidence for pulmonary edema. Meg[place] is again noted. IMPRESSION: No acute cardiopulmonary findings. ACT 112: Negative or not required by law. Electronically signed by: Rupesh Martell M.D. 05/14/2024 10:58 AM Hip/Pelvis X-Ray 05/14/24 11:30 XR hip RT 2V w pelvis CLINICAL HISTORY: Right hip surgery. COMPARISON: Right femur radiographs April 24, 2024. FINDINGS: There are stable postoperative findings following internal fixation of the intertrochanteric fracture of the right femur. Hardware is intact. Slight irregularity of the right inferior pubic ramus remains unchanged. This is chronic. IMPRESSION: 1. Stable postoperative findings following internal fixation of the intertrochanteric fracture of the right femur. 2. No additional fractures within the pelvis or hips. ACT 112: Negative or not required by law. Electronically signed by: Rupesh Martell M.D. 05/14/2024 12:16 PM Medications Administered Current Inpatient Medications Acetaminophen (Acetaminophen 325 Mg Tab) 650 mg PO Q4H PRN PRN Reason: pain/fever Stop: 06/13/24 12:55 Last Admin: 05/17/24 19:24 Dose: 650 mg Amlodipine Besylate (Amlodipine Besylate 5 Mg Tab) 2.5 mg PO DAILY [facility] Stop: 06/14/24 08:59 Last Admin: 05/18/24 10:19 Dose: 2.5 mg Amoxicillin/Clavulanate Potassium (Amoxicillin/Clavulanate 500 Mg Tab) 1 tab PO BIDM [facility]; Protocol Stop: 05/26/24 16:59 Last Admin: 05/18/24 18:25 Dose: 1 tab Apixaban (Apixaban 2.5 Mg Tab) 2.5 mg PO BID [facility] Stop: 06/13/24 20:59 Last Admin: 05/18/24 10:20 Dose: 2.5 mg Cyanocobalamin (Cyanocobalamin (B-12) 500 Mcg Tablet) 1,000 mcg PO DAILY [facility] Stop: 06/14/24 08:59 Last Admin: 05/18/24 10:20 Dose: 1,000 mcg Dextrose (Dextrose 50% 50 Ml Syringe) 25 - 50 ml IV UD PRN; Protocol PRN Reason: Hypoglycemia Protocol Stop: 06/13/24 13:28 Docusate Sodium (Docusate Sodium 100 Mg Cap) 100 mg PO BID [facility] Stop: 06/13/24 20:59 Last Admin: 05/18/24 10:21 Dose: 100 mg Ferrous Sulfate (Ferrous Sulfate 325 Mg Tab) 325 mg PO QAM [facility] Stop: 06/14/24 08:59 Last Admin: 05/18/24 10:20 Dose: 325 mg Folic Acid (Folic Acid 1 Mg Tab) 1 mg PO QAM [facility] Stop: 06/16/24 08:59 Last Admin: 05/18/24 10:20 Dose: 1 mg Glucagon (Glucagon For Inj 1 Mg Vial) 1 mg SQ UD PRN; Protocol PRN Reason: Hypoglycemia Protocol Stop: 06/13/24 13:28 Glucose (Glucose 40% Gel 15 Gm Tube) 15 - 30 gm PO UD PRN; Protocol PRN Reason: Hypoglycemia Protocol Stop: 06/13/24 13:28 Glucose (Glucose 10 Tab/Tube) 4 - 8 tab PO UD PRN; Protocol PRN Reason: Hypoglycemia Protocol Stop: 06/13/24 13:28 Insulin Aspart (Insulin Aspart Per Unit Charge) 0 units SC [facility] Stop: 06/13/24 16:29 Last Admin: 05/18/24 18:24 Dose: Not Given Mirtazapine (Mirtazapine Tab 15 Mg Tab) 7.5 mg PO HS [facility] Stop: 06/17/24 20:59 Miscellaneous (Carbohydrates For Hypoglycemia ) 15 - 30 gm PO UD PRN PRN Reason: Hypoglycemia Protocol Stop: 06/13/24 13:28 Ondansetron HCl (Ondansetron Inj 2 Mg/Ml 2 Ml Vial) 4 mg IV Q6H PRN PRN Reason: Nausea Stop: 06/13/24 12:55 Oxybutynin Chloride (Oxybutynin Chloride Xl 5 Mg Tabcr) 5 mg PO DAILYBB [facility] Stop: 06/14/24 06:29 Last Admin: 05/18/24 06:13 Dose: Not Given Oxycodone HCl (Oxycodone Hcl Ir 5 Mg Tab (Immediate Release)) 2.5 mg PO Q4H PRN PRN Reason: Severe Pain (Scale 7, 8, 9,10) Stop: 05/31/24 15:24 Pantoprazole Sodium (Pantoprazole 40 Mg Tab) 40 mg PO DAILY [facility] Stop: 06/14/24 08:59 Last Admin: 05/18/24 10:20 Dose: 40 mg Polyethylene Glycol (Polyethylene (Miralax) 17 Gm Pack) 17 gm PO DAILY PRN PRN Reason: Constipation Stop: 06/13/24 12:55 Quetiapine Fumarate (Quetiapine Fumarate 25 Mg Tablet) 25 mg PO DAILY [facility] Stop: 06/14/24 08:59 Last Admin: 05/18/24 10:20 Dose: 25 mg Rosuvastatin Calcium (Rosuvastatin Calcium 10 Mg Tab) 10 mg PO HS [facility] Stop: 06/13/24 20:59 Last Admin: 05/17/24 19:24 Dose: 10 mg Triamcinolone Acetonide (Triamcinolone Acet 0.1% Cr 15 Gm Tube) 1 appln EXT TID PRN PRN Reason: itching Stop: 06/13/24 16:53 Last Admin: 05/15/24 08:39 Dose: 1 appln Vibegron (Vibegron 75 Mg Tab) 75 mg PO DAILY [facility] Stop: 06/14/24 08:59 Last Admin: 05/18/24 10:19 Dose: 75 mg Vitamin D (Cholecalciferol 25 Mcg (1000 Units) Tab) 50 mcg PO DAILY [facility] Stop: 06/14/24 08:59 Last Admin: 05/18/24 10:19 Dose: 50 mcg PG Care Time/CCT Total # of Minutes Spent Total Time Spent with Patient: Total time spent is greater than 50% in coordination of care (as documented) at patient's floor/unit and/or counseling patient: Advanced Care Planning 03561 Advanced Care Planning 30 [place] [address] IN/OBS CONSULT LVL 2,35M Patient Type New History Problem Focused Exam Problem Focused Medical Decision Making Low Complexity Diagnoses Palliative care by specialist Z51.5 Counseling regarding advanced directives and goals of care Z71.89 Additional Codes Advanced Care Planning - 46561 Advanced Care Planning 30 Min: 04981 Advanced Care Planning 30 Min ([id number])
[2024-05-18] MEDS: MIRTAZAPINE TAB 15 MG TAB PO SCH (22:47)
[2024-05-18 23:55] LABS: Cdiff Toxin B Gene (2yr or >) Positive Cdiff Gene (Neg)
[2024-05-19 00:31] LABS: Cdiff Antigen Positive
[2024-05-19 00:34] LABS: Cdiff Toxin A+B Positive Cdiff Toxin (Negative)
[2024-05-19] MEDS: CHERRY SYRUP 5 ML UDP PO SCH (01:24)
[2024-05-19] MEDS: VANCOMYCIN HCL 125 MG/2.5ML SOLN PO SCH (01:25)
--- NOTE | 2024-05-19 07:46 | Hospitalist Progress Note ---
Date of Service May 19, 2024 Assessment & Plan (1) Weakness: Plan: Presented with generalized weakness, poor appetite, and dehydration x few days. Recent hip fracture s/p repair in beginning of April 2024 and was discharged to [facility] at that time. Suspect multifocal: Covid positive on arrival, possible acute UTI, hypernatremia, and physical deconditioning 05/19 Augmentin continued for urinary coverage, plan for 7 day course. Provided additional 1L D5 1/2 NS but held off on 05/18 Palliative consulted, possible dc to [facility] if continued FTT Did review meds, new rx seroquel this past month can cause dysgeusia. Have stopped this/started low dose remeron 7.5mg HS and continued Did check stool for cdiff given abx use/liquid output in ostomy which was POSITIVE -- placed on Vancomycin PO, will continue course. PT/OT consulted, did get to edge of bed today but went poorly/not able to tolerate further. Ongoing therapy encouraged. (2) Clostridioides difficile diarrhea: Plan: checked given liquid appearance of stool/abx use and poor appetite cdiff gene/toxin both positive placed on vancomycin PO, will continue BUN/Cr stable on AM labs but w/ poor intake did order additional IVF x 1 L. , hopefully will improve with treatment but did have issues w/ intake prior to last admission. Bicarb IV x 1 for acidosis and will monitor to add to ongoing IVF if needed pending PO intake. Monitor I&O, volume status. (3) Acute UTI: Plan: Acute UTI versus chronic colonization with suprapubic catheter. Suspected CAUTI Decreased UOP on admission w/ concentrated urine, no epithelial cells/contamination. Hx pseduomonas/klebsiella UTIs. Suspected 2nd to infection w/ poor PO intake above/failure to thrive Also with CLAYTON w/ Cr to 3.24 above baseline in the 2.3-2.7 range recently Placed on Cefepime initially 05/14--> transitioned to AUGMENTIN 05/16 to complete course (7 day for CAUTI, EOT 05/21) Catheter recently exchanged, can consider changing again prior to completion of abx vs outpt w/ urology (4) COVID: Plan: COVID positive on admission Chest x-ray: No acute findings Steroids and remdesivir not indicated in the absence of hypoxia and remains on RA, 98% Incentive spirometry ordered, supportive care could be contributing to taste/appetite as well, improved sensation off seroquel and will remain off such (5) Acute hypernatremia: Plan: Hypernatremic in setting of volume contraction and poor p.o. intake. No AMS/neurological signs, just weakness Hypernatremia persisted despite 24 hours of hypotonic NSS and was provided D5W 1/2 NSS with improvement and have ordered additional 1L --> agreed to labs this afternoon, Na stable 145 and can monitor for now. Remeron started for mood/appetite (6) Diabetes mellitus type 2, controlled: Plan: Home Januvia and Lantus on hold. A1c 7.5 Basal/bolus insulin ordered while inpatient, D5 to IVF given PO intake for calories and will continue to monitor (7) Folate deficiency: Plan: Prior reports failure to thrive during hospitalization from earlier this month due to lack of taste (not surprising w/ +COVID testing) but folate level also checked with his anemia and was LOW and started on PO supplementation --> does not appear to have been continued at [place] to rehab and not ordered on admission, will plan to resume 1mg PO daily SHOULD BE CONTINUED AT [facility] (8) CLAYTON (acute kidney injury): Plan: as above, improved with tx UTI and hydration back to baseline. not on any diuretics at baseline. PO hydration encouraged/IVF as needed above for poor PO intake, suspect 2nd to cdiff/diarrheal losses Plan Chronic stable issues: A-fib: Continue Eliquis Anemia: Iron studies consistent with anemia of chronic disease. B12 normal. Folate low, supplementation resumed/continued as above Rectal cancer 2018, s/p radiation, x-ray therapy. Sacral ulcer: Present on admission. Ulcer precautions.PPI once daily continued * Of note, prior admission noting CT Chest 09/2023: "Several nodular opacities within the lower lobes and groundglass opacities, new since prior chest CT. These favor a mild infectious process although are indeterminate. A follow-up chest CT in 3 months to ensure resolution is recommended." * Will defer repeat to PCP in f/u [place] but can be considered if ongoing issues/continued inpatient stay Dispo: continued inpatient stay, seroquel stopped/remeron added. Completing course augmetin for UTI. now + cdiff and on vancomycin PO. CM following, bed hold at [facility] but may req [facility] if ongoing FTT w/ transition to palliative. Will update son this afternoon as updated x 2 on 05/18 Admission and Anticipated Discharge Date Admission Date: May 14, 2024 Supervising Physician Co-Signing Physician Notes The patient was not seen by me. The chart was reviewed. Case discussed with JREONIMO Brandt. Agree with assessment and plan Subjective Eval this morning, resting in bed. Wanting to sleep. Reported taste does seem to be coming back a little since stopping the seroquel, he was thankful for this. Not much of an appetite, IVF have been resumed. Denies CP/SOB, wanting head of bed flat in bed to rest. Encouraged intake, will continue remeron. Discussed testing of stool was positive and started oral abx and will hopefully have improvement in intake. Continued inpatient stay, will update son this afternoon. Physical Exam 2 Physical Exam: General: 84yo male sitting in bed, NAD, flat affect/wanting to sleep, less confusion today/lights pulled in the room HEENT: head atraumatic, normocephalic, mm continues to be dry, trachea midline Resp: even/unlabored, slightly diminished in the bases, no significant wheezing/rales/cough, 98% on RA CV: : Irregularly irregular in the 70-80ss, without murmurs gallops or rubs, no pitting edema GI: +BS, ostomy intact/functioning, dark brown/black liquid output, no overt tenderness/guarding : suprapubic catheter in place, concentrated urine in bag, slightly less concentrated today MSK/Neuro: nonfocal but generalized weakness, sacral wound present Psych: AOx3, flat affect/depressed at times Results & Data Results & Data Vital Signs (Past 12 Hours) Vital Signs Temp Pulse Resp BP Pulse Ox O2 Del Method 05/18/24 22:10 Room Air 05/18/24 22:00 37 C 91 H 18 146/84 H 98 Room Air Laboratory Results 05/19/24 12:19 05/19/24 12:19 Cdiff gene/toxin POSITIVE PG Care Time/CCT Total # of Minutes Spent Total Time Spent with Patient: Total time spent is greater than 50% in coordination of care (as documented) at patient's floor/unit and/or counseling patient: Coding Level of Care Code 05073 SUB INP/OBS CARE 3/50MIN Diagnoses Weakness R53.1 Clostridioides difficile diarrhea A04.72 Acute UTI N39.0 COVID U07.1 Acute hypernatremia E87.0 Diabetes mellitus type 2, controlled E11.9 Folate deficiency E53.8 CLAYTON (acute kidney injury) N17.9
[2024-05-19] MEDS: D5W AND 1/2NSS 1,000 ML IV SCH (09:11)
[2024-05-19] MEDS: ONDANSETRON INJ 2 MG/ML 2 ML VIAL IV PRN (09:12)
[2024-05-19] MEDS: oxyCODONE HCL IR 5 MG TAB (IMMEDIATE RELEASE) PO PRN (12:15)
[2024-05-19 12:38] LABS: Basophils # (auto) 0.03 K/uL (0.00-0.20); Basophils % (auto) 0.4 %; Eosinophils # (auto) 0.17 K/uL (0.00-0.50); Eosinophils % (auto) 2.5 %; Hematocrit (blood only) 29.4 % (42.0-52.0); Immature Granulocytes # (auto) 0.04 K/uL (0.01-0.20); Immature Granulocytes % (auto) 0.6 %; Lymphocytes # (auto) 0.57 K/uL (1.20-3.40); Lymphocytes % (auto) 8.3 %; Mean Corpuscular Hemoglobin 27.1 pg (25.0-34.0); Mean Corpuscular Hgb Conc 30.6 g/dL (32.0-36.0); Mean Corpuscular Volume 88.6 fL (80.0-100.0); Mean Platelet Volume 9.7 fL (9.4-12.4); Monocytes # (auto) 0.53 K/uL (0.11-0.59); Monocytes % (auto) 7.7 %; Neutrophils # (auto) 5.55 K/uL (1.40-6.50); Neutrophils % (auto) 80.5 %; Platelet Count 265 K/uL (130-400); RDW Standard Deviation 51.7 fL (36.4-46.3); Red Blood Count 3.32 M/uL (4.70-6.10); White Blood Count 6.89 K/ul (4.8-10.8)
[2024-05-19 12:52] LABS: BUN Creatinine Ratio 18.4 (10-20); Calcium 8.6 mg/dl (8.6-10.3); Magnesium 1.7 mg/dl (1.7-2.4)
[2024-05-19] MEDS: SODIUM BICARB 8.4% INJ 50 MEQ/50 ML SYR IV STA (15:53)
--- NOTE | 2024-05-20 08:56 | Hospitalist Progress Note ---
Date of Service May 20, 2024 Assessment & Plan (1) Weakness: Plan: Presented with generalized weakness, poor appetite, and dehydration x few days. Recent hip fracture s/p repair in beginning of April 2024 and was discharged to [facility] at that time. Suspect multifocal: Covid positive on arrival, possible acute UTI, hypernatremia, and physical deconditioning 05/20 Augmentin continued for urinary coverage, plan for 7 day course. EOT 05/21 as given Cefepime up front 04/14 1L D5 1/2 NSS + 50meq IV bicarb on 05/19 for acidosis on labs --IMPROVED on labs today. Mag 1.6, 2gm IV ordered and will monitor to ensure replete with his afib. Suspect 2nd to diarrhea losses w/ + cdiff testing --Remains on eliquis 2.5mg BID Seroquel has been discontinued (can cause dysgeusia) Low dose remeron in place for mood/depression and appetite stimulation and has been taking some bites, consider increasing but will continue current dose for now ---attempted to work with therapy 05/19 but difficult even getting up to side of the bed. Pain control stable w/ prn oxycodone 2.5mg as needed Palliative consulted last week (see note), CM notified to f/u about dispo planning. Updated son Ricardo 05/20 Monitor hydration status, encouraged PO. Will hold off further IVF for today. (2) Clostridioides difficile diarrhea: Plan: checked given liquid appearance of stool/abx use and poor appetite cdiff gene/toxin both positive placed on vancomycin PO 05/19, will continue to complete course 1L IVF on 05/19, improvement in electrolytes and stable renal function and will hold off further IVF for today/encourage PO intake. Monitor hydration status but ?if contributing to poor PO intake given such and hopefully w/ remeron and tx will improve but has been slow Monitor I&O, volume status (3) Acute UTI: Plan: Acute UTI versus chronic colonization with suprapubic catheter. Suspected CAUTI Decreased UOP on admission w/ concentrated urine, no epithelial cells/contamination. Hx pseduomonas/klebsiella UTIs. Suspected 2nd to infection w/ poor PO intake above/failure to thrive Also with CLAYTON w/ Cr to 3.24 above baseline in the 2.3-2.7 range recently Placed on Cefepime initially 05/14--> transitioned to AUGMENTIN 05/16 to complete course (7 day for CAUTI, EOT 05/21) Catheter recently exchanged, can consider changing again prior to completion of abx vs outpt w/ urology (4) COVID: Plan: COVID positive on admission Chest x-ray: No acute findings Steroids and remdesivir not indicated in the absence of hypoxia and remains on RA, 98% Incentive spirometry ordered, supportive care could be contributing to taste/appetite as well, improved sensation off seroquel and will remain off such and will monitor to increase remeron as needed 96% on RA (5) Acute hypernatremia: Plan: Hypernatremic in setting of volume contraction and poor p.o. intake. No AMS/neurological signs, just weakness Got hypotonic NSS and was provided D5W w/ 1/2 NSS w/ improvement and stable at 142 Continue remeron as above, monitor hydration (6) Diabetes mellitus type 2, controlled: Plan: Home Januvia and Lantus on hold. A1c 7.5 Basal/bolus insulin ordered while inpatient, D5 to IVF given PO intake for calories and will continue to monitor but does have some dextrose w/ IV mag as ordered for today (7) Folate deficiency: Plan: Prior reports failure to thrive during hospitalization from earlier this month due to lack of taste (not surprising w/ +COVID testing) but folate level also checked with his anemia and was LOW and started on PO supplementation --> does not appear to have been continued at dc to rehab and not ordered on admission, will plan to resume 1mg PO daily SHOULD BE CONTINUED AT [facility] (8) CLAYTON (acute kidney injury): Plan: as above, improved with tx UTI and hydration back to baseline. not on any diuretics at baseline. PO hydration encouraged/IVF as needed above for poor PO intake but holding off for now/volume appears acceptable -- suspect 2nd to cdiff/diarrheal losses as well as PO intake issues 2nd to taste Plan Chronic stable issues: A-fib: Continue Eliquis Anemia: Iron studies consistent with anemia of chronic disease. B12 normal. Folate low, supplementation resumed/continued as above Rectal cancer 2017, s/p radiation, x-ray therapy. Sacral ulcer: Present on admission. Ulcer precautions.PPI once daily continued * Of note, prior admission noting CT Chest 09/2023: "Several nodular opacities within the lower lobes and groundglass opacities, new since prior chest CT. These favor a mild infectious process although are indeterminate. A follow-up chest CT in 3 months to ensure resolution is recommended." * Will defer repeat to PCP in f/u at [place] but can be considered if ongoing issues/continued inpatient stay Dispo: continued inpatient stay, seroquel stopped/remeron added and can consider increasing. Continued encouragement for meals/participation in therapy. Son updated 05/20, CM to follow up on placement given concerns for continued decline if PO intake remaining poor Admission and Anticipated Discharge Date Admission Date: May 14, 2024 Supervising Physician Co-Signing Physician Notes The patient was not seen by me. The chart was reviewed. Case discussed with JERONIMO Brandt. Agree with assessment and plan Subjective Eval this morning, reports feeling very comfortable at this time, pain well controlled. got low dose oxycodone. Ostomy seems to be slowing, not had to change this shift. Has been taking some bites of food, urine catheter draining clear yellow urine. Mag replacement ordered. Discussed nursing making milkshake and he reports he feels like he could "jump up out of bed.' Discussed appears mood improved and will continue remeron. Encouraged continued participating with therapy as did get up to the side of the bed yesterday but was difficult/2 person assist. Mentation seems more stable/less confusion. Updated son Ricardo, patient had initially reported "if he doesn't call in, he doesn't care and don't call him." Discussed I do believe remeron to help w/ his depression and should be provided continued encouragement. Inquired and messaged CM regarding follow up referrals given unable to return to current living condition if not eating/participating in therapy. Physical Exam 2 Physical Exam: General: 84yo male sitting in bed, NAD, flat affect but slightly improved today, more talkative and reported being more comfortable. mm slightly dry but better than prior Resp:Breathing unlabored, occasional cough but 96% on RA, no wheezing CV: : Irregularly irregular in the 70-80s, without murmurs gallops or rubs, no pitting edema GI:Abdomen with ostomy intact, liquid output but less frequent reported, no overt tenderness : catheter draining clear yellow urine today MSK/Neuro: generalized weakness but nonfocal, +sacral wound, answering questions appropriately Psych: alert to person/knws in hospital/year, depressed but appears slightly improved Results & Data Results & Data Vital Signs (Past 12 Hours) Vital Signs Temp Pulse Resp BP Pulse Ox O2 Del Method 05/20/24 08:10 36.4 C L 71 18 140/75 96 Room Air 05/19/24 22:16 Room Air Laboratory Results 05/19/24 12:19 05/20/24 08:08 PG Care Time/CCT Total # of Minutes Spent Total Time Spent with Patient: Total time spent is greater than 50% in coordination of care (as documented) at patient's floor/unit and/or counseling patient: Coding Level of Care Code 31021 SUB INP/OBS CARE 3/50MIN Diagnoses Weakness R53.1 Clostridioides difficile diarrhea A04.72 Acute UTI N39.0 COVID U07.1 Acute hypernatremia E87.0 Diabetes mellitus type 2, controlled E11.9 Folate deficiency E53.8 CLAYTON (acute kidney injury) N17.9
[2024-05-20 09:04] LABS: BUN Creatinine Ratio 16.2 (10-20); Calcium 8.2 mg/dl (8.6-10.3); Creatinine Clr Calc Pharmacy 25.4 ml/min; Magnesium 1.6 mg/dl (1.7-2.4)
[2024-05-20] MEDS: MAGNESIUM SULFATE / D5W 1 GM/100 ML BAG IV SCH (12:10)
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
[2024-05-21] MEDS: MIRTAZAPINE TAB 15 MG TAB PO SCH (22:21)
--- NOTE | 2024-05-22 09:00 | Hospitalist Progress Note ---
Date of Service May 22, 2024 Assessment & Plan (1) Weakness: Plan: Presented with generalized weakness, poor appetite, and dehydration x few days. Recent hip fracture s/p repair in beginning of April 2024 and was discharged to [facility] at that time. Suspect multifocal: Covid positive on arrival, possible acute UTI, hypernatremia, and physical deconditioning , continued FTT with dysgeusia, now with +cdiff testing Ongoing, 2nd to participation level/appetite Augmentin completed for UTI Vanco PO continued for cdiff to complete course Remeron increased to 15mg HS for mood/appetite with improvement in mentation and alert/oriented and able to demonstrate capacity at this time. Seroquel discontinued Pulmonary toilet for COVID, isolation for such dc but remains on contact for cdiff. Needs private room until 06/01 Did take half smoothie today, up to side of the bed today (improvement albeit minor, from prior). Continue to monitor PO intake/encourage rehab. CM following to see if Rossyjulia able to take with current therapy evals (2) Clostridioides difficile diarrhea: Plan: checked given liquid appearance of stool/abx use and poor appetite --cdiff gene/toxin both positive. isolation precautions ordered and Vanco PO started/continued to complete course. Colace placed on BID as had been continued and would avoid softeners. Is on PO iron and could have slowed down as culprit for not noting significant output before Appears PO intake SLIGHT improvement w/ inc Remeron/tx and will continue (3) Acute UTI: Plan: Acute UTI versus chronic colonization with suprapubic catheter. Suspected CAUTI Decreased UOP on admission w/ concentrated urine, no epithelial cells/contamination. Hx pseduomonas/klebsiella UTIs. Suspected 2nd to infection w/ poor PO intake above/failure to thrive Also with CLAYTON w/ Cr to 3.24 above baseline in the 2.3-2.7 range recently Placed on Cefepime initially 05/14--> transitioned to AUGMENTIN 05/16 to complete course, now complete (4) COVID: Plan: COVID positive on admission Chest x-ray: No acute findings Steroids and remdesivir not indicated in the absence of hypoxia and remains on RA, 98% Incentive spirometry ordered, supportive care could be contributing to taste/appetite as well, improved sensation off seroquel and will remain off such and remeron increasing for PM 05/21 96% on RA (5) Acute hypernatremia: Plan: Hypernatremic in setting of volume contraction and poor p.o. intake. No AMS/neurological signs, just weakness Got hypotonic NSS and was provided D5W w/ 1/2 NSS w/ improvement and stable at 142, held further IVF Continue remeron as above, monitor hydration as agreeable but has decline labs today No further IVF at this time and had been stable on repeat -- monitor as able/agreeable with patient (6) Diabetes mellitus type 2, controlled: Plan: Home Januvia and Lantus on hold. A1c 7.5 Basal/bolus insulin ordered while inpatient (7) Folate deficiency: Plan: Prior reports failure to thrive during hospitalization from earlier this month due to lack of taste (not surprising w/ +COVID testing) but folate level also checked with his anemia and was LOW and started on PO supplementation --> does not appear to have been continued at [place] to rehab and not ordered on admission, resumed 1mg PO daily and SHOULD BE CONTINUED AT [facility] (8) CLAYTON (acute kidney injury): Plan: as above, improved with tx UTI and hydration back to baseline. not on any diuretics at baseline. PO hydration encouraged/IVF as needed above for poor PO intake but holding off for now/volume appears acceptable -- suspect 2nd to cdiff/diarrheal losses as well as PO intake issues 2nd to taste Plan Chronic stable issues: A-fib: Continue Eliquis Anemia: Iron studies consistent with anemia of chronic disease. B12 normal. Folate low, supplementation resumed/continued as above Rectal cancer 2018, s/p radiation, x-ray therapy. Sacral ulcer: Present on admission. Ulcer precautions.PPI once daily continued * Of note, prior admission noting CT Chest 09/2023: "Several nodular opacities within the lower lobes and groundglass opacities, new since prior chest CT. These favor a mild infectious process although are indeterminate. A follow-up chest CT in 3 months to ensure resolution is recommended." * Will defer repeat to PCP in f/u at [place] but can be considered if ongoing issues/continued inpatient stay Dispo: continued inpatient stay, remeron continued at increased dose. See palliative note from discussion today. CM following up from therapy evals if able to accept at [facility] w/ current status otherwise will need additional ref. Continues encouragement to participate with therapy/PO intake (improved with caregiver he knows rachel this afternoon) Ricardo has been updated, can update as needed and with dispo planning Admission and Anticipated Discharge Date Admission Date: May 14, 2024 Subjective Evl this evening. Aide from prior in room. She does report bringing him a smoothie/milkshake, he did drink about 1/2 of this, hot chocolate earlier. Does report he sat at side of the bed today, confirmed with nursing. Encouraged continued participation in therapy if eventual goal to go home but will need to have improvement from physical standpoint prior to that occurring (if able to arrange extra help at home). Needs continued positive encouragement, is not ready for hospice at this time but has voiced frustrations being told "unable" to do things, however did discuss unsafe at home in current condition and would need rehab prior to that but will see how he does. POA paperwork /discussion follow up on with palliative to ensure if wanting to change POA in state w/ decision making can. Physical Exam Physical Exam: General: 84yo male sitting up in bed, caregiver in room, mood appears improved, provided warm blankets/fresh ice water HEENT: head atraumatic, normocephalic, mm improved/stable, trachea midline Resp: even/unlabored, on room air CV: irregularly irregular, rates controlled, no pitting edema GI: +BS, ostomy intact/functioning, nontender : SP catheter draining yellow urine MSK/Neuro/psych: generalized weakness but slightly improved with pumping his legs but still very weak overall but nonfocal, NOT confused, alert to person /place/year/events, mood appears improved. +sacral wound PG Care Time/CCT Total # of Minutes Spent Total Time Spent with Patient: Total time spent is greater than 50% in coordination of care (as documented) at patient's floor/unit and/or counseling patient: Coding Level of Care Code 17964 SUB INP/OBS CARE 2/35MIN Diagnoses Weakness R53.1 Clostridioides difficile diarrhea A04.72 Acute UTI N39.0 COVID U07.1 Acute hypernatremia E87.0 Diabetes mellitus type 2, controlled E11.9 Folate deficiency E53.8 CLAYTON (acute kidney injury) N17.9
--- NOTE | 2024-05-22 13:05 | Palliative Care Progress Note ---
Date of Service May 22, 2024 Assessment & Plan (1) Counseling regarding advanced directives and goals of care: (2) Palliative care by specialist: Plan met with pt at bedside. We discussed pt's home life, need for assistance with some ADLs, his functional ability as well as his reliance on others for transportation since "my son took my keys because I am too erratic". Pt shared that he still prepares his own meals and manages his own finance, but he does have home health aides to assist him with house keeping and bathing. Pt was able to convey an understanding of his PMHx, HPI and current hospital course. He shared frustration that his son is trying to make decisions for home and take his independence away. Patient has exhibited current decisional capacity based on the ability to convey understanding of personal PMHx, current medical condition, treatment options and the risks / benefits of those options, and lack of ability to make decisions based on such knowledge. Hospital does not have written documentation of patient wishes concerning his chosen proxy for medical decisions. Per PA [id number], in absence of written documentation of patient wishes, pt's proxy for medical decisions would be the pt's two sons with equal decision making power. Pt does not require a proxy for medical decisions at this time. Pt shared that he was brought to the hospital after falling at home. He shared that he did not trip nor feel dizzy prior to fall. He attributes fall to weakness and agreed that he does not feel any stronger at this time. Shared concern that if he were to return home in his weakened state, he would most likely have repeated falls requiring readmission to the hospital. He agreed and shared that being home and "having at least some independence" is of most value to him. He shared that prior to this admission, despite needing [facility] assistance with many things, he did enjoy his life. He shared that he has no desire to be discharged to [facility] and especially opposed to returning to [facility] for IPR. Discussed that if being home is of most importance to him, he would need to improve his strength to return home safely. Discussed that IPR is designed to optimize both strength and independence and would be the best way to achieve that. He did not want to discuss IPR and commented "then just leave me alone to ". When asked to elaborate, he offered no response. Discussed three options for ongoing care, 1. continuing current hospital course with discharge to [facility] in hopes of returning home; 2. continuing current hospital course with discharge to SNF or assisted living environment for ongoing life prolonging therapy; or 3. discharge to either home or SNF for hospice care. 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 Pt shared that his son Ricardo has been "taking control" and making decisions that he would not agree with. Pt shared that he has 2 sons and neither of them would understand or agree with his choices. Given pt's frustration, we discussed importance of LW/AD and choosing a proxy for medical decisions that will be available AND willing to support his wishes for end of life care. Pt shared that he had previously completed an AD/LW naming Ricardo as primary MDM proxy. Papperwork supplied for pt to update his wishes in form of AD. Pt shared that he does not have any other choice for proxy. Encouraged pt to consider paperwork and agreed to revisit ACP on . Spoke at length with pt's son Ricardo, he shared that he has a paid bed hold for the pt in assisted living care at [facility] and is unsure of what to do if pt is making his own decisions and refusing to go to assisted living. He shared that he has discussed his father's affairs with the it security specialist who assisted with establishing HCPOA and financial POA and was advised to take control of the pt's finances due to the pt's recent poor decision making. Ricardo has started paying pt's bills and questioned if he should also be making medical decisons. Helped Ricardo understand what constitutes medical decisional capacity and that the pt currently meets the criteria. Discussed pt's wishes and desire to be home. Ricardo expressed concern that pt might be discharged back home alone and not be safe. Agreed with Ricardo that pt is not currently ready for discharge. Ricardo is requesting pt disposition be finalized before he flies back to [place] on . Helped him understand that pt is not currently medically cleared for discharge. Ricardo expressed concern for pt signing out AMA and going home. I shared that although the pt has cognitive capacity to make that decision, he does not have the strength to leave the hospital and would require assistance in getting home. Ricardo shared that he has spoken with all pt's friends and family and they all agreed not to transport pt unless he is medically cleared for discharge and safe to be home. Will continue to follow for ongoing GOC discussion with the pt. Admission and Anticipated Discharge Date Admission Date: May 14, 2024 Subjective Pt assessed at bedside today, he was more alert nd oriented x4. He is in NAD on RA. He c/o not sleeping well last night due to "all over" pain which he could not qualify other than "constant, severe and all over", but denies discomfort at present. Review of Systems Review of Systems: All systems reviewed & are unremarkable except as noted in Subjective Physical Exam Physical Exam: General: NAD, frail appearing more talkative and reported being more comfortable. mm slightly dry but better than prior Resp:Breathing unlabored, occasional cough but 96% on RA, no wheezing CV: : Irregularly irregular in the 70-80s, without murmurs gallops or rubs, no pitting edema GI:Abdomen with ostomy intact, liquid output but less frequent reported, no overt tenderness : catheter draining clear yellow urine today MSK/Neuro: generalized weakness but nonfocal, +sacral wound, answering questions appropriately Psych: AAOx4, flat affect but appears agitated with conversation Results & Data Vital Signs (Past 12 Hours) Vital Signs Temp 36.5 C 05/21/24 19:35 Pulse 71 05/21/24 19:35 Resp 18 05/21/24 19:35 BP 153/76 H 05/21/24 19:35 Pulse Ox 98 05/21/24 19:35 O2 Del Method Room Air 05/21/24 19:35 Intake & Output 05/21/24 05/22/24 05/22/24 18:59 06:59 18:59 Output Total 450 / 950 500 / 950 Balance -450 / -950 -500 / -950 Weight 66.6 kg Output: Urine Amount (Catheter) 450 / 950 500 / 950 Suprapubic 450 / 950 500 / 950 Laboratory Results Abnormal lab results 05/21/24 Range/Units 17:45 POC Glucose 111 H (70-99) mg/dl Diagnostic Findings Chest X-Ray 05/14/24 10:40 XR chest 1V portable CLINICAL HISTORY: weakness COMPARISON STUDY: Chest CT September 27, 2023. Chest radiograph April 24, 2024. FINDINGS: Old bilateral rib fractures and an old proximal left humeral fracture are incidentally noted. There is no pneumothorax or pleural effusion. There is no consolidation or evidence for pulmonary edema. Meg[place] is again noted. IMPRESSION: No acute cardiopulmonary findings. ACT 112: Negative or not required by law. Electronically signed by: Rupesh Martell M.D. 05/14/2024 10:58 AM Hip/Pelvis X-Ray 05/14/24 11:30 XR hip RT 2V w pelvis CLINICAL HISTORY: Right hip surgery. COMPARISON: Right femur radiographs April 24, 2024. FINDINGS: There are stable postoperative findings following internal fixation of the intertrochanteric fracture of the right femur. Hardware is intact. Slight irregularity of the right inferior pubic ramus remains unchanged. This is chronic. IMPRESSION: 1. Stable postoperative findings following internal fixation of the intertrochanteric fracture of the right femur. 2. No additional fractures within the pelvis or hips. ACT 112: Negative or not required by law. Electronically signed by: Rupesh Martell M.D. 05/14/2024 12:16 PM Medications Administered Current Inpatient Medications Acetaminophen (Acetaminophen 325 Mg Tab) 650 mg PO Q4H PRN PRN Reason: pain/fever Stop: 06/13/24 12:55 Last Admin: 05/21/24 08:15 Dose: 650 mg Amlodipine Besylate (Amlodipine Besylate 5 Mg Tab) 2.5 mg PO DAILY MARIANA Stop: 06/14/24 08:59 Last Admin: 05/22/24 08:00 Dose: 2.5 mg Apixaban (Apixaban 2.5 Mg Tab) 2.5 mg PO BID MARIANA Stop: 06/13/24 20:59 Last Admin: 05/22/24 08:00 Dose: 2.5 mg Sosa Syrup (Sosa Syrup 5 Ml Udp) 5 ml PO Q6H MARIANA Stop: 05/29/24 00:59 Last Admin: 05/22/24 12:50 Dose: Not Given Cyanocobalamin (Cyanocobalamin (B-12) 500 Mcg Tablet) 1,000 mcg PO DAILY MARIANA Stop: 06/14/24 08:59 Last Admin: 05/22/24 08:01 Dose: 1,000 mcg Dextrose (Dextrose 50% 50 Ml Syringe) 25 - 50 ml IV UD PRN; Protocol PRN Reason: Hypoglycemia Protocol Stop: 06/13/24 13:28 Ferrous Sulfate (Ferrous Sulfate 325 Mg Tab) 325 mg PO QAM MARIANA Stop: 06/14/24 08:59 Last Admin: 05/22/24 08:01 Dose: 325 mg Folic Acid (Folic Acid 1 Mg Tab) 1 mg PO QAM [facility] Stop: 06/16/24 08:59 Last Admin: 05/22/24 08:01 Dose: 1 mg Glucagon (Glucagon For Inj 1 Mg Vial) 1 mg SQ UD PRN; Protocol PRN Reason: Hypoglycemia Protocol Stop: 06/13/24 13:28 Glucose (Glucose 40% Gel 15 Gm Tube) 15 - 30 gm PO UD PRN; Protocol PRN Reason: Hypoglycemia Protocol Stop: 06/13/24 13:28 Glucose (Glucose 10 Tab/Tube) 4 - 8 tab PO UD PRN; Protocol PRN Reason: Hypoglycemia Protocol Stop: 06/13/24 13:28 Insulin Aspart (Insulin Aspart Per Unit Charge) 0 units SC [facility] Stop: 06/13/24 16:29 Last Admin: 05/22/24 12:49 Dose: Not Given Mirtazapine (Mirtazapine Tab 15 Mg Tab) 15 mg PO HS [facility] Stop: 06/20/24 20:59 Last Admin: 05/21/24 22:21 Dose: 15 mg Miscellaneous (Carbohydrates For Hypoglycemia ) 15 - 30 gm PO UD PRN PRN Reason: Hypoglycemia Protocol Stop: 06/13/24 13:28 Ondansetron HCl (Ondansetron Inj 2 Mg/Ml 2 Ml Vial) 4 mg IV Q6H PRN PRN Reason: Nausea Stop: 06/13/24 12:55 Last Admin: 05/22/24 07:53 Dose: 4 mg Oxybutynin Chloride (Oxybutynin Chloride Xl 5 Mg Tabcr) 5 mg PO DAILYBB [facility] Stop: 06/14/24 06:29 Last Admin: 05/22/24 06:28 Dose: 5 mg Oxycodone HCl (Oxycodone Hcl Ir 5 Mg Tab (Immediate Release)) 2.5 mg PO Q4H PRN PRN Reason: Severe Pain (Scale 7, 8, 9,10) Stop: 05/31/24 15:24 Last Admin: 05/22/24 07:52 Dose: 2.5 mg Pantoprazole Sodium (Pantoprazole 40 Mg Tab) 40 mg PO DAILY [facility] Stop: 06/14/24 08:59 Last Admin: 05/22/24 08:01 Dose: 40 mg Polyethylene Glycol (Polyethylene (Miralax) 17 Gm Pack) 17 gm PO DAILY PRN PRN Reason: Constipation Stop: 06/13/24 12:55 Rosuvastatin Calcium (Rosuvastatin Calcium 10 Mg Tab) 10 mg PO HS [facility] Stop: 06/13/24 20:59 Last Admin: 05/21/24 22:21 Dose: 10 mg Triamcinolone Acetonide (Triamcinolone Acet 0.1% Cr 15 Gm Tube) 1 appln EXT TID PRN PRN Reason: itching Stop: 06/13/24 16:53 Last Admin: 05/15/24 08:39 Dose: 1 appln Vancomycin HCl (Vancomycin Hcl 125 Mg/2.5ml Soln) 125 mg PO Q6H MARIANA Stop: 05/29/24 00:59 Last Admin: 05/22/24 12:50 Dose: Not Given Vibegron (Vibegron 75 Mg Tab) 75 mg PO DAILY MARIANA Stop: 06/14/24 08:59 Last Admin: 05/22/24 08:00 Dose: 75 mg Vitamin D (Cholecalciferol 25 Mcg (1000 Units) Tab) 50 mcg PO DAILY MARIANA Stop: 06/14/24 08:59 Last Admin: 05/22/24 08:00 Dose: 50 mcg PG Care Time/CCT Total # of Minutes Spent Total Time Spent with Patient: Total time spent is greater than 50% in coordination of care (as documented) at patient's floor/unit and/or counseling patient: Advanced Care Planning 72673 Advanced Care Planning 30 Min C[place] [address] SUB INP/OBS CARE 2/35MIN Patient Type Established Medical Decision Making Low Complexity Diagnoses Counseling regarding advanced directives and goals of care Z71.89 Palliative care by specialist Z51.5 Additional Codes Advanced Care Planning - 79389 Advanced Care Planning 30 Min: 57440 Advanced Care Planning 30 Min ([id number])
--- NOTE | 2024-05-23 08:31 | Hospitalist Progress Note ---
Date of Service May 23, 2024 Assessment & Plan (1) Weakness: Plan: Presented with generalized weakness, poor appetite, and dehydration x few days. Recent hip fracture s/p repair in beginning of April 2024 and was discharged to [facility] at that time. Suspect multifocal: Covid positive on arrival, possible acute UTI, hypernatremia, and physical deconditioning , continued FTT with dysgeusia, now with +cdiff testing Ongoing, 2nd to participation level/appetite/poor PO intake Completed course for UTI w/ Augmentin Vanco PO continued for + cdiff Remeron to 15mg HS , mentation stable/improved and remains with capacity at this time and does not want any IVF for today. Ate some tapicoa pudding, 1/2 vanilla milkshake last evening and kitchen to bring vanilla milkshake today. Could have ongoing weakness/lack of taste made worse by covid but has been asymptomatic from resp status w/ no hypoxia and 95% on RA. Palliative seen 05/22, will see again in AM for advanced directive PT/OT consulted and had been refusing to participate but did participate 05/22 w ith sitting up at edge of the bed. Patient wanting rehab/ref to [facility] and [facility] in place but bed hold at [facility] in meantime. Son plans to return to [place] (2) Clostridioides difficile diarrhea: Plan: checked given liquid appearance of stool/abx use and poor appetite --cdiff gene/toxin both positive. isolation precautions ordered and Vanco PO started/continued to complete course. Colace BID stopped to prevent worsened diarrheal losses. Also on PO iron, will place on hold to prevent issues given lack of oral intake but +BS despite no output this monring. Continue remeron as above (3) Acute UTI: Plan: Acute UTI versus chronic colonization with suprapubic catheter. Suspected CAUTI Decreased UOP on admission w/ concentrated urine, no epithelial cells/contamination. Hx pseudomonas/klebsiella UTIs. Suspected 2nd to infection w/ poor PO intake above/failure to thrive Also with CLAYTON w/ Cr to 3.24 above baseline in the 2.3-2.7 range recently Completed course Cefepime/Augmentin (4) COVID: Plan: COVID positive on admission Chest x-ray: No acute findings Steroids and remdesivir not indicated in the absence of hypoxia and remains on RA, 98% Incentive spirometry ordered, supportive care could be contributing to taste/appetite as well, improved sensation off seroquel and will remain off such and remeron increased PM 05/21 95% on RA (5) Acute hypernatremia: Plan: Hypernatremic in setting of volume contraction and poor p.o. intake. No AMS/neurological signs, just weakness Got hypotonic NSS and was provided D5W w/ 1/2 NSS w/ improvement and stable at 142, held further IVF Continue remeron as above, monitor hydration as agreeable but has decline labs today No further IVF at this time (PATIENT ASKED TO AVOID THIS FOR TODAY 05/23). DOES appear dehydrated but patient declined IVF for today/trying milkshake/improve PO as above and will moniotr but suspect if no significant improvement 24hr would need additional IVF support Does have hx rectal carcinoma s/p XRT therapy. Sacral ulcer on exam stable but high risk for progression. Of note, prior admission noting CT Chest 09/2023: "Several nodular opacities within the lower lobes and groundglass opacities, new since prior chest CT. These favor a mild infectious process although are indeterminate. A follow-up chest CT in 3 months to ensure resolution is recommended." * Will defer repeat to PCP in f/u at [facility] but can be considered if ongoing issues/continued inpatient stay (6) Diabetes mellitus type 2, controlled: Plan: Home Januvia and Lantus on hold. A1c 7.5 Basal/bolus insulin ordered while inpatient (7) Folate deficiency: Plan: PO continued, rx @ dc (8) CLAYTON (acute kidney injury): Plan: on admission, IVF/tx UTI and repeat 2 x 2 (2nd off IVF) and defer ongoing IVF at this time per patient request. PO hydration encourgad. Remains on Vanco PO for +cdiff testing Plan DVT proph: remains on eliquis for afib. A-fib: Continue Eliquis Dispo: continued inpatient stay, PO hydration encouraged but will respect Carls wishes to avoid IVF for today. Remains on increased remeron PO. Palliative f/u in AM. CM following for rehab vs return to [facility]. Update Ricardo (son, financial POA) in AM Admission and Anticipated Discharge Date Admission Date: May 14, 2024 Supervising Physician Co-Signing Physician Notes The patient was not seen by me. The chart was reviewed. Case discussed with JERONIMO Brandt. Agree with assessment and plan Subjective Eval this afternoon, took some tapioca this morning, nursing called for hotdog but patient declined/lack of taste. Ostomy with lack of output as changed last evening, no abdominal pain reported. Mentation appears stable and he reports he does NOT want any more IV fluids for today but would be willing for vanilla ice cream/milkshake if made with skim milk and no glucerna. Called to kitchen to make as instructed and they are going to make him one for today given he drank about 1/2 one last night with he confirms "Erica". Continued encouragement for oral intake but will respect his wishes to avoid IV fluids for today. MM dry/cracked, chapstick and sip of water provided. Questions/concerns addressed at this time. Physical Exam Physical Exam: General: 84yo male sitting up in bed, fatigued appearing and reporting cracked lips/wanting chapstick HEENT: head atraumatic, normocephalic, mm DRY/cracked, trachea midline Resp: even/unlabored, on room air 95% CV: irregularly irregular, rates controlled, no pitting edema GI: +BS, ostomy intact, red beefy stoma, no significant output at this time. : SP catheter draining yellow urine MSK/Neuro/psych: generalized weakness but slightly improved with pumping his legs but still very weak overall but nonfocal, NOT confused, alert to person/place/year/events, mood appears improved. +sacral wound Results & Data Results & Data Vital Signs (Past 12 Hours) Vital Signs Temp Pulse Resp BP Pulse Ox O2 Del Method 05/23/24 08:04 36.6 C 76 16 169/93 H 95 Room Air Laboratory Results 05/23/24 05/23/24 05/22/24 Range/Units 11:44 08:03 16:32 POC Glucose 107 H 106 H 137 H (70-99) mg/dl PG Care Time/CCT Total # of Minutes Spent Total Time Spent with Patient: Total time spent is greater than 50% in coordination of care (as documented) at patient's floor/unit and/or counseling patient: Coding Level of Care Code 13039 SUB INP/OBS CARE 2/35MIN Diagnoses Weakness R53.1 Clostridioides difficile diarrhea A04.72 Acute UTI N39.0 COVID U07.1 Acute hypernatremia E87.0 Diabetes mellitus type 2, controlled E11.9 Folate deficiency E53.8 CLAYTON (acute kidney injury) N17.9
[2024-05-24 11:21] LABS: Hematocrit (blood only) 32.6 % (42.0-52.0); Hemoglobin 9.9 g/dl (14.0-18.0); Mean Corpuscular Hemoglobin 27.2 pg (25.0-34.0); Mean Corpuscular Hgb Conc 30.4 g/dL (32.0-36.0); Mean Corpuscular Volume 89.6 fL (80.0-100.0); Mean Platelet Volume 10.2 fL (9.4-12.4); Platelet Count 289 K/uL (130-400); RDW Coefficient of Variation 16.3 % (11.5-14.5); RDW Standard Deviation 52.5 fL (36.4-46.3); Red Blood Count 3.64 M/uL (4.70-6.10); White Blood Count 5.48 K/ul (4.8-10.8)
[2024-05-24 12:25] LABS: BUN Creatinine Ratio 14.8 (10-20); Creatinine Clr Calc Pharmacy 24.8 ml/min; Magnesium 1.9 mg/dl (1.7-2.4); Potassium 4.6 mmol/L (3.5-5.1)
--- NOTE | 2024-05-24 13:38 | Palliative Family Discussion ---
Date of Service May 24, 2024 Patient Directed Conference Time of Meetin:00-11:40 Participants: Johanny Gill AGACNP Patient participation: yes Patient Support System: no visitors present Other Healthcare Provider Participation: None Meeting Location:bedside Advanced Directive available:No If yes, descriptors: The patient's surrogate medical decision maker participated: no, Patient has exhibited current decisional capacity based on the ability to convey understanding of personal PMHx, current medical condition, treatment options nor the risks / benefits of those options, and ability to make decisions based on such knowledge. Legally authorized health care proxy: Hospital does not have written documentation of patient wishes concerning his chosen proxy for medical decisions. Per PA [id number], in absence of written documentation of patient wishes, pt's proxy for medical decisions would be his two adult sons with equal decisional power. Pt does not currently require a proxy for medical decisions. Other surrogate: n/a A family meeting was held for MARIXA TAYLOR. This meeting was necessary for determining the appropriate course of treatment. Topics of Discussion Topics of Discussion: 1. plan of care 2. goals of care 3. advanced directives Other Content of Meetin. Opportunity given for participants to speak and ask questions. 2. Participants were assured of attention to patient comfort. 3. Reassurance provided. 4. Support was provided for informed, good-bessy decisions. 5. Emotions expressed by patient were acknowledged and addressed. 6. Follow-up Outpatient: n/a 7. Plan of Care: pt requests evaluation for IPR, confirmed wishe for DNR/DNI, NO TF GOC again discussed with pt at bedside. Again discussed options for ongoing care of continuing current course of treatment including ongoing life prolonging therapy with potential need for supplemental nutrition via tube, PT/OT eval and possible IPR /SNF vs transition to comfort directed care and pleasure feeds. Pt reinfmultipleorcedhis desire for NO ARTIFICIAL NUTRITION and sited multiple factors preventing him from having better PO intake. We discussed that he is not taking enough nutrition orally to improve his health or even maintain his current level of strength/helath. He shared the smell and taste of food provided is off putting and causes nausea and indigestion. Discussed trying to take antiemetics prior to meals as peventative. He is agreeable to trying this, but also questioned why he cannot just eat ice cream and milk shakes. We discussed the need to eat for nutrition vs eating for pleasure. Pt not agreeable to this but also shared that he is not ready for comfort care and pleasure feeds. He did state today that he is willing to try to work with PT and agreeable to dc to [facility] for IPR. He remains steadfast in his desire to return to independent living with home health aids. I spent 60 minutes overall addressing this case: 10 in medical data review/discussion with referring provider(s) and/or preparation for the visit 35 in direct interaction with the patient] 35 Advance Care Planning/Goals of Care discussions as detailed above in note (must be >16min) 10 in subsequent review and synthesis of assessment and plan 5 in communicating with other providers regarding the patient's case: Wily PICKERING, attending team
--- NOTE | 2024-05-24 16:18 | Hospitalist Progress Note ---
Date of Service May 24, 2024 Assessment & Plan (1) Weakness: Plan: Presented with generalized weakness, poor appetite, and dehydration x few days. Recent hip fracture s/p repair in beginning of April 2024 and was discharged to [facility] at that time. Suspect multifocal: Covid positive on arrival, acute UTI (finished treatment), hypernatremia (resolved), physical deconditioning, continued failure to thrive with dysgeusia, now with + C diff testing - Ongoing -- continue to encourage participation with therapy and good PO intake - Increased Remeron to 15mg HS , mentation stable/improved and remains with capacity at this time - Scheduled Zofran 4mg TIDM 30 min prior to meals to assist in appetite/nausea - Palliative care following - Patient is too deconditioned to return to [facility] at this time; SNF referrals pending (2) Clostridioides difficile diarrhea: Plan: Checked given liquid appearance of stool, recent antibiotic use, and poor appetite - C. difficile gene and toxin both positive. Isolation precautions ordered - Continue p.o. Vanco, last dose 05/29/24 - Colace BID stopped to prevent worsened diarrheal losses. Also on PO iron, will place on hold to prevent issues given lack of oral intake (3) Acute hypernatremia: Plan: Hypernatremic in setting of volume contraction and poor p.o. intake. No AMS/neurological signs, just weakness - Got hypotonic NSS and was provided D5W w/ 1/2 NSS w/ improvement and stable at 142, held further IVF - Continue Remeron as above, monitor hydration as agreeable but has decline labs today - Patient declined further IV fluids today -- will monitor but suspect will need additional IVF support as patient appeared slightly dehydrated on exam 05/24/24 (4) COVID: Plan: COVID positive on admission. Chest x-ray: No acute findings - Steroids and remdesivir not indicated in the absence of hypoxia and remains on RA, 98% - Incentive spirometry ordered, supportive care - Could be contributing to dysgeusia, improved sensation off Seroquel and will remain off such - Stable on room air (5) Acute UTI: Plan: Acute UTI versus chronic colonization with suprapubic catheter. Suspected CAUTI - Urine culture revealed pansensitive Klebsiella pneumoniae. Completed course of cefepime/Augmentin this hospitalization (6) Diabetes mellitus type 2, controlled: Plan: Home Januvia and Lantus on hold. A1c 7.5 Basal/bolus insulin ordered while inpatient (7) Folate deficiency: Plan: PO continued, rx @ dc Plan Discussed case with palliative care Updated patient's friend at bedside Scheduled Zofran before meals Dispo: continued inpatient stay. Encourage working with PT/OT, PO intake. Unable to return to [facility] due to deconditioning. SNF referrals pending DVT PPx: Eliquis CODE STATUS: DNR/DNI Does have hx rectal carcinoma s/p XRT therapy. Sacral ulcer on exam stable but high risk for progression. Of note, prior admission noting CT Chest 09/2023: "Several nodular opacities within the lower lobes and groundglass opacities, new since prior chest CT. These favor a mild infectious process although are indeterminate. A follow-up chest CT in 3 months to ensure resolution is recommended." * Will defer repeat to PCP in f/u at [place] but can be considered if ongoing issues/continued inpatient stay Admission and Anticipated Discharge Date Admission Date: May 14, 2024 Subjective Patient seen and evaluated at bedside with his friend present. He did eat most of his lunch with RN today. Encouraged continued p.o. intake. He requests no additional IV fluids today and would like his Zofran to be p.o. instead of IV. He reports frustration with "everyone always asking questions" but then states that "no one does things for me." Counselled patient that we do not know if something is wrong unless we ask sometimes and he can ask for things/assistance when needed. He remained irritable but verbalized understanding. No additional complaints or concerns at this time. Physical Exam Physical Exam: General: No acute distress, nondiaphoretic, well-developed, well-nourished. Irritated mood. Skin: The skin was without rashes, erythema, edema, or bruising. Cardiac: Irregularly irregular in the 70s without murmurs gallops or rubs. Pulm: Clear to auscultation bilaterally without wheezes, rales or rhonchi. No respiratory distress. 98% on room air. Abdominal: Soft, nontender, nondistended. Bowel sounds present. Ostomy bag in place right abdomen, no significant output. : Suprapubic catheter in place, no surrounding erythema or discharge. Neuro: A&O x3. No focal neurological deficits. Results & Data Results & Data Vital Signs (Past 12 Hours) Vital Signs Temp Pulse Resp BP Pulse Ox O2 Del Method 05/24/24 14:02 97.5 F L 77 18 158/68 H 98 Room Air 05/24/24 09:35 72 151/76 H 05/24/24 08:30 Room Air 05/24/24 07:59 98.2 F 72 18 136/82 99 Room Air Laboratory Results Reviewed CBC Reviewed BMP - CLAYTON resolved with Cr returned to baseline 2.09 PG Care Time/CCT Total # of Minutes Spent Total Time Spent with Patient: Total time spent is greater than 50% in coordination of care (as documented) at patient's floor/unit and/or counseling patient: Coding Level of Care Code 47057 SUB INP/OBS CARE 3/50MIN Diagnoses Weakness R53.1 Clostridioides difficile diarrhea A04.72 Acute hypernatremia E87.0 COVID U07.1 Acute UTI N39.0 Diabetes mellitus type 2, controlled E11.9 Folate deficiency E53.8
[2024-05-24] MEDS ORDERED: ONDANSETRON INJ 2 MG/ML 2 ML VIAL IV SCH (17:00)
[2024-05-24] MEDS: ONDANSETRON 4 MG OD TAB PO SCH (17:38)
[2024-05-24] MEDS: MELATONIN 3 MG TAB PO PRN (20:53)
--- NOTE | 2024-05-25 08:29 | Hospitalist Progress Note ---
Date of Service May 25, 2024 Assessment & Plan (1) Weakness: Plan: Presented with generalized weakness, poor appetite, and dehydration x few days. Recent hip fracture s/p repair in beginning of April 2024 and was discharged to [facility] at that time. Suspect multifocal: Covid positive on arrival, acute UTI (finished treatment), hypernatremia (resolved), physical deconditioning, continued failure to thrive with dysgeusia, now with + C diff testing - Ongoing -- continue to encourage participation with therapy and good PO intake, pastoral care cannot - Increased Remeron to 15mg HS , mentation stable/improved and remains with capacity at this time Also considering Marinol addition to improve appetite - Scheduled Zofran 4mg TIDM 30 min prior to meals to assist in appetite/nausea - Patient is too deconditioned to return to [facility] at this time; SNF referrals pending (2) Clostridioides difficile diarrhea: Plan: Checked given liquid appearance of stool, recent antibiotic use, and poor appetite - C. difficile gene and toxin both positive. Isolation precautions ordered - Continue p.o. Vanco, last dose 05/29/24 - Colace BID stopped to prevent worsened diarrheal losses. Also on PO iron, will place on hold to prevent issues given lack of oral intake (3) Acute hypernatremia: Plan: Hypernatremic in setting of volume contraction and poor p.o. intake. No AMS/neurological signs, just weakness - Got hypotonic NSS and was provided D5W w/ 1/2 NSS w/ improvement and stable at 142, held further IVF - Continue Remeron as above, monitor hydration as agreeable but has decline labs today - Patient declined further IV fluids today -- will monitor but suspect will need additional IVF support as patient appeared slightly dehydrated on exam 05/24/24 (4) COVID: Plan: COVID positive on admission. Chest x-ray: No acute findings - Steroids and remdesivir not indicated in the absence of hypoxia and remains on RA, 98% - Incentive spirometry ordered, supportive care - Could be contributing to dysgeusia, improved sensation off Seroquel and will remain off such - Stable on room air (5) Acute UTI: Plan: Acute UTI versus chronic colonization with suprapubic catheter. Suspected CAUTI - Urine culture revealed pansensitive Klebsiella pneumoniae. Completed course of cefepime/Augmentin this hospitalization (6) Diabetes mellitus type 2, controlled: Plan: Home Januvia and Lantus on hold. A1c 7.5 Basal/bolus insulin ordered while inpatient Plan Discussed case with palliative care, palliative consult feels pt does not need surgoate decision maker Scheduled Zofran before meals Dispo: continued inpatient stay. Encourage working with PT/OT, PO intake. Unable to return to [facility] due to deconditioning. SNF referrals pending DVT PPx: Eliquis CODE STATUS: DNR/DNI Does have hx rectal carcinoma s/p XRT therapy. Sacral ulcer on exam stable but high risk for progression. Of note, prior admission noting CT Chest 09/2023: "Several nodular opacities within the lower lobes and groundglass opacities, new since prior chest CT. These favor a mild infectious process although are indeterminate. A follow-up chest CT in 3 months to ensure resolution is recommended." * Will defer repeat to PCP in f/u at [place] but can be considered if ongoing issues/continued inpatient stay Admission and Anticipated Discharge Date Admission Date: May 14, 2024 Subjective pt has no desire to eat, most food makes him feel ill, only wants to eat cheese and milkshakes but not chocolate usually prefers claire Physical Exam Physical Exam: pt appears with Dry Mucous membranes cardiac is regular lungs are clear Results & Data Results & Data Vital Signs (Past 12 Hours) Vital Signs Temp Pulse Resp BP Pulse Ox O2 Del Method 05/25/24 07:22 97.9 F 79 14 114/69 99 Room Air PG Care Time/CCT Total # of Minutes Spent Total Time Spent with Patient: Total time spent is greater than 50% in coordination of care (as documented) at patient's floor/unit and/or counseling patient: Coding Level of Care Code 58430 SUB INP/OBS CARE 3/50MIN Diagnoses Weakness R53.1 Clostridioides difficile diarrhea A04.72 Acute hypernatremia E87.0 COVID U07.1 Acute UTI N39.0 Diabetes mellitus type 2, controlled E11.9
[2024-05-25] MEDS: COUGH DROP (SUGAR FREE) LOZ 24 LOZ/1 BOX BUCCAL ONE (09:24)
--- NOTE | 2024-05-25 15:15 | XRay Report ---
KUB CLINICAL HISTORY: eval for ileus COMPARISON STUDY: CT of the abdomen and pelvis September 27, 2023. FINDINGS: Right femoral internal fixation is partially imaged. The bowel gas pattern is normal. There is no evidence for a bowel obstruction. No urinary calculi are identified. IMPRESSION: No evidence for a bowel obstruction. Normal bowel gas pattern. No radiographic evidence for an ileus. ACT 112: Negative or not required by law. Electronically signed by: Rupesh Martell M.D. 05/25/2024 3:13 PM
[2024-05-25] MEDS: droNABinol 2.5 MG CAP PO SCH (21:37)
[2024-05-26 07:13] LABS: Hematocrit (blood only) 28.3 % (42.0-52.0); Hemoglobin 8.5 g/dl (14.0-18.0); Mean Corpuscular Volume 89.8 fL (80.0-100.0); Mean Platelet Volume 10.2 fL (9.4-12.4); Platelet Count 251 K/uL (130-400); RDW Coefficient of Variation 16.5 % (11.5-14.5); RDW Standard Deviation 54.3 fL (36.4-46.3); Red Blood Count 3.15 M/uL (4.70-6.10); White Blood Count 6.12 K/ul (4.8-10.8)
[2024-05-26 07:53] LABS: BUN Creatinine Ratio 14.2 (10-20); Calcium 8.4 mg/dl (8.6-10.3); Creatinine Clr Calc Pharmacy 21.1 ml/min; Potassium 4.4 mmol/L (3.5-5.1)
--- NOTE | 2024-05-26 08:21 | Hospitalist Progress Note ---
Date of Service May 26, 2024 Assessment & Plan (1) Weakness: Plan: Presented with generalized weakness, poor appetite, and dehydration x few days. Recent hip fracture s/p repair in beginning of April 2024 and was discharged to [facility] at that time. Suspect multifocal: Covid positive on arrival, acute UTI (finished treatment), hypernatremia (resolved), physical deconditioning, continued failure to thrive with dysgeusia, now with + C diff testing - Ongoing -- continue to encourage participation with therapy and good PO intake, pastoral care cannot - Increased Remeron to 15mg HS , mentation stable/improved and remains with capacity at this time Also considering Marinol addition to improve appetite - Scheduled Zofran 4mg TIDM 30 min prior to meals to assist in appetite/nausea - Patient is too deconditioned to return to [facility] at this time; SNF referrals pending prema with ckd3, worsens, this is his volition not to eat and drink will continue to re address his wishes (2) Clostridioides difficile diarrhea: Plan: Checked given liquid appearance of stool, recent antibiotic use, and poor appetite - C. difficile gene and toxin both positive. Isolation precautions ordered - Continue p.o. Vanco, last dose 05/29/24 - Colace BID stopped to prevent worsened diarrheal losses. Also on PO iron, will place on hold to prevent issues given lack of oral intake (3) Acute hypernatremia: Plan: Hypernatremic in setting of volume contraction and poor p.o. intake. resolved - Continue Remeron as above, monitor hydration as agreeable but has decline labs today - Patient declined further IV fluids (4) COVID: Plan: COVID positive on admission. Chest x-ray: No acute findings - Steroids and remdesivir not indicated in the absence of hypoxia and remains on RA, 98% - Incentive spirometry ordered, supportive care - Could be contributing to dysgeusia, improved sensation off Seroquel and will remain off such - Stable on room air (5) Acute UTI: Plan: Acute UTI versus chronic colonization with suprapubic catheter. Suspected CAUTI - Urine culture revealed pansensitive Klebsiella pneumoniae. Completed course of cefepime/Augmentin this hospitalization (6) Diabetes mellitus type 2, controlled: Plan: Home Januvia and Lantus on hold. A1c 7.5 Basal/bolus insulin ordered while inpatient Plan Discussed case with palliative care, palliative consult feels pt does not need surgoate decision maker Scheduled Zofran before meals Dispo: continued inpatient stay. Encourage working with PT/OT, PO intake. Unable to return to [facility] due to deconditioning. SNF referrals pending DVT PPx: Eliquis CODE STATUS: DNR/DNI Does have hx rectal carcinoma s/p XRT therapy. Sacral ulcer on exam stable but high risk for progression. Of note, prior admission noting CT Chest 09/2023: "Several nodular opacities within the lower lobes and groundglass opacities, new since prior chest CT. These favor a mild infectious process although are indeterminate. A follow-up chest CT in 3 months to ensure resolution is recommended." * Will defer repeat to PCP in [place]/u [place] but can be considered if ongoing issues/continued inpatient stay Admission and Anticipated Discharge Date Admission Date: May 14, 2024 Subjective pt has no desire to eat, most food makes him feel ill, only wants to eat raison bran today has some worsening of renal function Physical Exam Physical Exam: pt appears with Dry Mucous membranes cardiac is regular lungs are clear Results & Data Results & Data Vital Signs (Past 12 Hours) Vital Signs Temp Pulse Resp BP Pulse Ox O2 Del Method 05/26/24 07:23 98.2 F 68 14 136/65 99 Room Air 05/26/24 00:12 97.7 F 95 H 15 142/77 H 97 Room Air 05/25/24 21:30 Room Air Laboratory Results review cbc review chemistry PG Care Time/CCT Total # of Minutes Spent Total Time Spent with Patient: Total time spent is greater than 50% in coordination of care (as documented) at patient's floor/unit and/or counseling patient: Coding Level of Care Code 03124 SUB INP/OBS CARE 2/35MIN Diagnoses Weakness R53.1 Clostridioides difficile diarrhea A04.72 Acute hypernatremia E87.0 COVID U07.1 Acute UTI N39.0 Diabetes mellitus type 2, controlled E11.9
--- NOTE | 2024-05-27 07:10 | Hospitalist Progress Note ---
Date of Service May 27, 2024 Assessment & Plan (1) Weakness: Plan: Presented with generalized weakness, poor appetite, and dehydration x few days. Recent hip fracture s/p repair in beginning of April 2024 and was discharged to [facility] at that time. Pt is declining, is not wanting to commit to hospice but will not participate in care to make himself better or eat. Suspect multifocal: Covid positive on arrival, acute UTI (finished treatment), hypernatremia (resolved), physical deconditioning, continued failure to thrive with dysgeusia, now with + C diff testing, pt spit out vancomycin in afternoon 05/27 - Ongoing -- continue to encourage participation with therapy and good PO intake, pastoral care cannot - Increased Remeron to 15mg HS , mentation stable/improved and remains with capacity at this time Also considering Marinol addition to improve appetite - Scheduled reglan 30 min prior to meals to assist in appetite/nausea - Patient is too deconditioned to return to [facility] at this time; SNF referrals pending prema with ckd3, worsens, this is his volition not to eat and drink will continue to re address his wishes overall the pt is limiting his care but not wanting to participate in improving, knowing Mr Bhakta this maybe his way of dying on his own terms without committing to a decision (2) Clostridioides difficile diarrhea: Plan: Checked given liquid appearance of stool, recent antibiotic use, and poor appetite - C. difficile gene and toxin both positive. Isolation precautions ordered - Continue p.o. Vanco, last dose 05/29/24 - Colace BID stopped to prevent worsened diarrheal losses. Also on PO iron, will place on hold to prevent issues given lack of oral intake (3) Acute hypernatremia: Plan: Hypernatremic in setting of volume contraction and poor p.o. intake. resolved - Continue Remeron as above, monitor hydration as agreeable but has decline labs today - Patient declined further IV fluids (4) COVID: Plan: COVID positive on admission. Chest x-ray: No acute findings - Steroids and remdesivir not indicated in the absence of hypoxia and remains on RA, 98% - Incentive spirometry ordered, supportive care - Could be contributing to dysgeusia, improved sensation off Seroquel and will remain off such - Stable on room air (5) Acute UTI: Plan: Acute UTI versus chronic colonization with suprapubic catheter. Suspected CAUTI - Urine culture revealed pansensitive Klebsiella pneumoniae. Completed course of cefepime/Augmentin this hospitalization (6) Diabetes mellitus type 2, controlled: Plan: Home Januvia and Lantus on hold. A1c 7.5 Basal/bolus insulin ordered while inpatient Plan Discussed case with palliative care, palliative consult feels pt does not need surgoate decision maker Scheduled Zofran before meals Dispo: continued inpatient stay. Encourage working with PT/OT, PO intake. Unable to return to [facility] due to deconditioning. SNF referrals pending DVT PPx: Eliquis CODE STATUS: DNR/DNI Does have hx rectal carcinoma s/p XRT therapy. Sacral ulcer on exam stable but high risk for progression. Of note, prior admission noting CT Chest 09/2023: "Several nodular opacities within the lower lobes and groundglass opacities, new since prior chest CT. Th jacques favor a mild infectious process although are indeterminate. A follow-up chest CT in 3 months to ensure resolution is recommended." * Will defer repeat to PCP in f/u at [place] but can be considered if ongoing issues/continued inpatient stay Admission and Anticipated Discharge Date Admission Date: May 14, 2024 Subjective pt has no desire to eat, most food makes him feel ill, only wants to eat raison bran today has some worsening of renal function, pt does not want to go full hospice but yet will not participate in treatments to make him better Physical Exam Physical Exam: pt appears with Dry Mucous membranes cardiac is regular lungs are clear Results & Data Results & Data Vital Signs (Past 12 Hours) Vital Signs Temp Pulse Resp BP Pulse Ox O2 Del Method 05/26/24 21:05 Room Air 05/26/24 20:31 97.9 F 72 16 121/72 94 Room Air PG Care Time/CCT Total # of Minutes Spent Total Time Spent with Patient: Total time spent is greater than 50% in coordination of care (as documented) at patient's floor/unit and/or counseling patient: Coding Level of Care Code 89516 SUB INP/OBS CARE 2/35MIN Diagnoses Weakness R53.1 Clostridioides difficile diarrhea A04.72 Acute hypernatremia E87.0 COVID U07.1 Acute UTI N39.0 Diabetes mellitus type 2, controlled E11.9
[2024-05-27] MEDS: MULTI VIT W/MINERALS LIQUID 15 ML UDC PO SCH (09:14)
[2024-05-27] MEDS: ONDANSETRON INJ 2 MG/ML 2 ML VIAL IV SCH (17:58)
[2024-05-27] MEDS: METOCLOPRAMIDE HCL 5 MG TABLET PO SCH (21:39)
[2024-05-28] MEDS: ONDANSETRON 4 MG OD TAB PO SCH (01:30)
--- NOTE | 2024-05-28 14:20 | Hospitalist Progress Note ---
Date of Service May 28, 2024 Assessment & Plan (1) Weakness: Plan: Presented with generalized weakness, poor appetite, and dehydration x few days. Recent hip fracture s/p repair in beginning of April 2024 and was discharged to [facility] at that time. Pt is declining, is not wanting to commit to hospice but will not participate in care to make himself better or eat. Suspect multifocal: Covid positive on arrival, acute UTI (finished treatment), hypernatremia (resolved), physical deconditioning, continued failure to thrive with dysgeusia, now with + C diff testing - Ongoing -- continue to encourage participation with therapy and good PO intake, pastoral care - Increased Remeron to 15mg HS , mentation stable/improved and remains with capacity at this time Also considering Marinol addition to improve appetite - Scheduled reglan 30 min prior to meals to assist in appetite/nausea - Patient is too deconditioned to return to [facility] at this time; SNF referrals pending prema with ckd3, worsens, this is his volition not to eat and drink will continue to re address his wishes overall the pt is limiting his care but not wanting to participate in improving and is refusing hospice as well. (2) Clostridioides difficile diarrhea: Plan: Checked given liquid appearance of stool, recent antibiotic use, and poor appetite - C. difficile gene and toxin both positive. Isolation precautions ordered - Continue p.o. Vanco, last dose 05/29/24 - Colace BID stopped to prevent worsened diarrheal losses. Also on PO iron, will place on hold to prevent issues given lack of oral intake (3) Acute hypernatremia: Plan: Hypernatremic in setting of volume contraction and poor p.o. intake. resolved - Continue Remeron as above, monitor hydration as agreeable - Patient declined further IV fluids (4) COVID: Plan: COVID positive on admission. Chest x-ray: No acute findings - Steroids and remdesivir not indicated in the absence of hypoxia and remains on RA, 98% - Incentive spirometry ordered, supportive care - Could be contributing to dysgeusia, improved sensation off Seroquel and will remain off such - Stable on room air (5) Acute UTI: Plan: Acute UTI versus chronic colonization with suprapubic catheter. Suspected CAUTI - Urine culture revealed pansensitive Klebsiella pneumoniae. Completed course of cefepime/Augmentin this hospitalization (6) Diabetes mellitus type 2, controlled: Plan: Home Januvia and Lantus on hold. A1c 7.5 Basal/bolus insulin ordered while inpatient Plan Discussed case with palliative care, palliative consult feels pt does not need surgoate decision maker Dispo: continued inpatient stay. Encourage working with PT/OT, PO intake. Unable to return to [facility] due to deconditioning. SNF referrals pending DVT PPx: Eliquis CODE STATUS: DNR/DNI Does have hx rectal carcinoma s/p XRT therapy. Sacral ulcer on exam stable but high risk for progression. Of note, prior admission noting CT Chest 09/2023: "Several nodular opacities within the lower lobes and groundglass opacities, new since prior chest CT. These favor a mild infectious process although are indeterminate. A follow-up chest CT in 3 months to ensure resolution is recommended." * Will defer repeat to PCP in f/u at [place] but can be considered if ongoing issues/continued inpatient stay Admission and Anticipated Discharge Date Admission Date: May 14, 2024 Subjective Patient seen and examined this morning. Overnight patient lost IV access and refused to have another one placed. He continues to refuse various meals and medications. Patient would like to return home eventually but is denying hospice care. Physical Exam Constitutional: WD/WN, vitals as above Eyes: PERRL, conjunctivae normal, anicteric sclerae Respiratory: breathing unlabored Cardiovascular: well perfused Psychiatric: A+Ox3, euthymic affect Results & Data Results & Data Vital Signs (Past 12 Hours) Vital Signs Temp Pulse Resp BP Pulse Ox O2 Del Method 05/28/24 07:20 36.4 C L 61 16 142/70 H 100 Room Air PG Care Time/CCT Total # of Minutes Spent Total Time Spent with Patient: Total time spent is greater than 50% in coordination of care (as documented) at patient's floor/unit and/or counseling patient: Coding Level of Care Code 65849 SUB INP/OBS CARE 2/35MIN Diagnoses Weakness R53.1 Clostridioides difficile diarrhea A04.72 Acute hypernatremia E87.0 COVID U07.1 Acute UTI N39.0 Diabetes mellitus type 2, controlled E11.9
[2024-05-28 16:59] LABS: Hematocrit (blood only) 29.8 % (42.0-52.0); Hemoglobin 9.2 g/dl (14.0-18.0); Mean Corpuscular Hemoglobin 27.6 pg (25.0-34.0); Mean Corpuscular Hgb Conc 30.9 g/dL (32.0-36.0); Mean Corpuscular Volume 89.5 fL (80.0-100.0); Mean Platelet Volume 10.3 fL (9.4-12.4); Platelet Count 265 K/uL (130-400); RDW Coefficient of Variation 16.2 % (11.5-14.5); Red Blood Count 3.33 M/uL (4.70-6.10); White Blood Count 7.25 K/ul (4.8-10.8)
[2024-05-28 17:20] LABS: Calcium 8.5 mg/dl (8.6-10.3); Potassium 4.9 mmol/L (3.5-5.1)
[2024-05-28 17:26] LABS: BUN Creatinine Ratio 14.6 (10-20); Creatinine Clr Calc Pharmacy 21.1 ml/min
--- NOTE | 2024-05-29 14:51 | Hospitalist Progress Note ---
Date of Service May 29, 2024 Assessment & Plan (1) Weakness: Plan: Presented with generalized weakness, poor appetite, and dehydration x few days. Recent hip fracture s/p repair in beginning of April 2024 and was discharged to [facility] at that time. Pt is declining, is not wanting to commit to hospice but will not participate in care to make himself better or eat. Adult failure to thrive Suspect multifocal: Covid positive on arrival, acute UTI (finished treatment), hypernatremia (resolved), physical deconditioning, continued failure to thrive with dysgeusia, C diff - Ongoing -- continue to encourage participation with therapy and good PO intake, pastoral care - continue Marinol and mirtazapine 15 mg at bedtime - Scheduled reglan 30 min prior to meals to assist in appetite/nausea - Patient is too deconditioned to return to [facility] at this time; SNF referrals pending TSH and B12 were within normal limits, will empirically replace zinc (dysgeusia, decubitus wound - zinc supplement ordered for 2 weeks starting 05/29) and vitamin B1 - 200 mg po bid for a month started 05/29 Possible depression - on mirtazapine, consider additional AD if he will allow it (2) Clostridioides difficile diarrhea: Plan: Checked given liquid appearance of stool, recent antibiotic use, and poor appetite - C. difficile gene and toxin both positive. Isolation precautions ordered - treated with oral vancomycin through 05/29 (refused some doses but did take at least 20 doses) (3) Acute hypernatremia: Plan: Hypernatremic in setting of volume contraction and poor p.o. intake. resolved - Continue Remeron as above, monitor hydration as agreeable - Patient declined further IV fluids (4) COVID: Plan: COVID positive on admission. Chest x-ray: No acute findings - Steroids and remdesivir not indicated in the absence of hypoxia and remains on RA, 98% - Incentive spirometry ordered, supportive care - Could be contributing to dysgeusia, improved sensation off Seroquel and will remain off such - Stable on room air (5) Acute UTI: Plan: Acute UTI versus chronic colonization with suprapubic catheter. Suspected CAUTI - Urine culture revealed pansensitive Klebsiella pneumoniae. Completed course of cefepime/Augmentin this hospitalization (6) Diabetes mellitus type 2, controlled: Plan: Home Januvia and Lantus on hold. A1c 7.5 BG at goal or normal since admission. Stop routine BG checks. Plan Discussed case with palliative care, palliative consult feels pt does not need surrogate decision maker Dispo: continued inpatient stay. Encourage working with PT/OT, PO intake. Unable to return to [facility] due to deconditioning. SNF referrals pending DVT PPx: Eliquis CODE STATUS: DNR/DNI Does have hx rectal carcinoma s/p XRT therapy. Sacral ulcer on exam stable but high risk for progression. Of note, prior admission noting CT Chest 09/2023: "Several nodular opacities within the lower lobes and groundglass opacities, new since prior chest CT. These favor a mild infectious process although are indeterminate. A follow-up chest CT in 3 months to ensure resolution is recommended." * Will defer repeat to PCP in f/u at or but can be considered if ongoing issues/continued inpatient stay Admission and Anticipated Discharge Date Admission Date: May 14, 2024 Subjective poor appetite and food tastes bad. This has been a problem longterm but worse last few weeks no abdominal pain or nausea, no cough/dyspnea, no chest or abdominal pain denies any dental problems Physical Exam 2 Physical Exam: PHYSICAL EXAMINATION Last 24h vital signs reviewed, see documentation in flowsheet General: chronically ill-appearing gentleman resting in bed with full food tray in front of him HEENT: Normocephalic, atraumatic, pupils round and equal, sclerae anicteric, no conjunctival injection, try mucus membranes Lungs: Normal respiratory effort. Clear to auscultation bilaterally. No RRW Heart: Regular rate and rhythm, no murmurs. No JVD Abdomen: Soft, nontender, nondistended. Bowel sounds present. ileostomy present, suprapubic catheter present urine in Marks bag with mucus Extremities: Warm, dry, well-perfused. No extremity edema. Neuro: Alert and oriented x 4, face symmetric, moves 4 extremities well Psych: depressed/withdrawn affect and behavior Results & Data Results & Data Vital Signs (Past 12 Hours) Vital Signs Temp Pulse Resp BP Pulse Ox O2 Del Method 05/29/24 07:54 97.5 F L 69 16 122/73 99 Room Air Laboratory Results 05/28/24 16:43 05/28/24 16:43 PG Care Time/CCT Total # of Minutes Spent Total Time Spent with Patient: Total time spent is greater than 50% in coordination of care (as documented) at patient's floor/unit and/or counseling patient: Coding Level of Care Code 84964 SUB INP/OBS CARE 2/35MIN Diagnoses Weakness R53.1 Clostridioides difficile diarrhea A04.72 Acute hypernatremia E87.0 COVID U07.1 Acute UTI N39.0 Diabetes mellitus type 2, controlled E11.9
[2024-05-29] MEDS: ZINC SULFATE 220 MG CAPSULE PO SCH (16:05)
[2024-05-29] MEDS: THIAMINE HCL 100 MG TAB PO SCH (20:39)
[2024-05-30] MEDS ORDERED: HALOPERIDOL ORAL SOLN 2 MG/ML PO PRN (13:52)
[2024-05-30] MEDS ORDERED: LORazepam 2 MG/1 ML VIAL IV PRN (13:52)
[2024-05-30] MEDS ORDERED: ONDANSETRON INJ 2 MG/ML 2 ML VIAL IV PRN (13:52)
[2024-05-30] MEDS ORDERED: ATROPINE SULFATE 1% OP SOLN 5 ML BTL SL PRN (13:52)
[2024-05-30] MEDS ORDERED: GLYCOPYRROLATE 0.2 MG/ML VIAL IV PRN (13:52)
--- NOTE | 2024-05-30 14:17 | Palliative Care Progress Note ---
Date of Service May 30, 2024 Assessment & Plan (1) Palliative care by specialist: Plan: We will continue to follow for ongoing comfort directed care. (2) Discussion about advance care planning held with family member: Plan: Attempted to discuss GOC with pt today. Attempted to discuss pt's hospital course and plan of care. Pt was focused on going home and would not engage in conversation about goals of care. He repeated requested to go home but could not verbalize a plan nor convey that he understands his treatment options after repeated explanations. Patient has exhibited current lack of decisional capacity based on the inability to convey understanding of his personal PMHx, current medical condition, treatment options nor the risks / benefits of those options, and lack of ability to make decisions based on such knowledge. Hospital does not have written documentation of patient wishes concerning his chosen proxy for medical decisions but has been consistently verbalizing that his son Ricardo would be his only chosen MDM proxy. Pt does require a proxy for medical decisions. Spoke briefly with pt's son at bedside and then at length with pt's son and chosen MDM proxy Ricardo by phone. Both were updated and made aware that the pt no longer possesses decisional capacity. Both sons were in agreement that the pt has been suffering and has no quality of life. Discussed that the pt is unlikely to have improved health nor regain independence if he continues to have minimal PO intake. They shared that the pt does not want ongoing invasive treatments but also has not wanted to make his own decision. Ricardo shared that he would like to allow his father a peaceful, natural given that he is only "withering away" in the hospital. They both shared awareness and agreement that given the his progressive decline in health, strength and independence, the pt would not wish to continue further life prolonging treatments without hope of recovery. Ricardo shared that the pt is a very proud and stubborn man who values his independence. We discussed comfort directed care and potential discharge to SNF with hospice Discussed hospice benefit: an interdisciplinary program offered by nurses, nurses aides, social workers, chaplains and a medical staff credentialing coordinator for patients with a terminal condition and a life expectancy of less than 6 months. This is covered by Medicare at 100%/no out of pocket expense to patient and all meds/supplies needed by patient for the reason they are on hospice are paid for/covered by hospice. The goal is assure quality of life of the patient in their home setting (home, fdc, inpatient hospice setting) by providing symptoms management, psychosocial and spiritual support. However, they cannot offer 24 hours care and if the family is unable to provide that care, they will have to consider personal care with out of pocket cost vs. fdc placement. We discussed the goals of hospice as a patient service and the goals of care; we discussed EOL trajectories and transitions kellen the emotional impact of realizing mortality as a concrete reality from prior abstract considerations. Pt was reassured that no matter where they are along this trajectory, they are not alone - their medical team will remain by their side through their journey. Discussed the pros/cons of accepting help when especially weakened and distressed by pain-which would also help provide relief/decrease caregiver burden/strain. Ricardo requests transition to comfort directed care today, he is in [place] and requests frequent updates so that he can make travel arrangements. Discussed plan of care with BSRN, CM, and Dr. White (attending). 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 Nausea/vomitting zofran 4mg IVP q4h PRN Agitation ativan 0.5mg IVP q4h PRN Hyperactive delirium haldol 5mg IVP q6h PRN Secretions - if repositioning not effective robinul 0.4mg IV q4h PRN atropine SL 3 drops Q1h PRN Nursing care: Discontinue all medications not directed towards comfort. Detether pt from IV tubing, monitor cables, and check vitals once per shift. Please continue HFNC and titrate down as able for patient comfort. Use medications above PRN for dyspnea/tachypnea and do not increase oxygen once titrated down. Assess q1h for pain/dyspnea and treat accordingly. Plan as above Admission and Anticipated Discharge Date Admission Date: May 14, 2024 Subjective assessed pt at bedside, he was sleeping but easily aroused. He was in NAD on room air. He seems agitated today but denies discomfort. He refused medication for anxiety. His son was at bedside. Review of Systems Review of Systems: All systems reviewed & are unremarkable except as noted in Subjective Physical Exam Physical Exam: General: NAD, frail appearing more drowsy today. mm slightly dry - refused hydration Resp:Breathing unlabored, occasional cough but 96% on RA, no wheezing CV: : Irregularly irregular in the 70-80s, without murmurs gallops or rubs, no pitting edema GI:Abdomen with ostomy intact, liquid output but less frequent reported, no overt tenderness : catheter draining clear yellow urine MSK/Neuro: generalized weakness but nonfocal, +sacral wound, answering questions appropriately Psych: AAOx4, flat affect but appears agitated with conversation Results & Data Vital Signs (Past 12 Hours) Vital Signs Temp Pulse Resp BP Pulse Ox O2 Del Method 05/30/24 07:50 36.4 C L 75 17 128/81 98 Room Air Laboratory Results Abnormal lab results 05/30/24 05/30/24 Range/Units 08:26 11:25 POC Glucose 129 H 116 H (70-99) mg/dl Diagnostic Findings Chest X-Ray 05/14/24 10:40 XR chest 1V portable CLINICAL HISTORY: weakness COMPARISON STUDY: Chest CT September 27, 2023. Chest radiograph April 24, 2024. FINDINGS: Old bilateral rib fractures and an old proximal left humeral fracture are incidentally noted. There is no pneumothorax or pleural effusion. There is no consolidation or evidence for pulmonary edema. Meg[place] is again noted. IMPRESSION: No acute cardiopulmonary findings. ACT 112: Negative or not required by law. Electronically signed by: Rupesh Martell M.D. 05/14/2024 10:58 AM Hip/Pelvis X-Ray 05/14/24 11:30 XR hip RT 2V w pelvis CLINICAL HISTORY: Right hip surgery. COMPARISON: Right femur radiographs April 24, 2024. FINDINGS: There are stable postoperative findings following internal fixation of the intertrochanteric fracture of the right femur. Hardware is intact. Slight irregularity of the right inferior pubic ramus remains unchanged. This is chronic. IMPRESSION: 1. Stable postoperative findings following internal fixation of the intertrochanteric fracture of the right femur. 2. No additional fractures within the pelvis or hips. ACT 112: Negative or not required by law. Electronically signed by: Rupesh Martell M.D. 05/14/2024 12:16 PM KUB X-Ray 05/25/24 14:14 KUB CLINICAL HISTORY: eval for ileus COMPARISON STUDY: CT of the abdomen and pelvis September 27, 2023. FINDINGS: Right femoral internal fixation is partially imaged. The bowel gas pattern is normal. There is no evidence for a bowel obstruction. No urinary calculi are identified. IMPRESSION: No evidence for a bowel obstruction. Normal bowel gas pattern. No radiographic evidence for an ileus. ACT 112: Negative or not required by law. Electronically signed by: Rupesh Martell M.D. 05/25/2024 3:13 PM Medications Administered Current Inpatient Medications Acetaminophen (Acetaminophen 325 Mg Tab) 650 mg PO Q4H PRN PRN Reason: pain/fever Stop: 06/13/24 12:55 Last Admin: 05/27/24 21:37 Dose: 650 mg Atropine Sulfate (Atropine Sulfate 1% Op Soln 5 Ml Btl) 4 drops SL Q1H PRN PRN Reason: Secretions or pulm congestion Stop: 06/29/24 13:51 Dronabinol (Dronabinol 2.5 Mg Cap) 2.5 mg PO BID MARIANA Stop: 06/24/24 20:59 Last Admin: 05/30/24 09:05 Dose: 2.5 mg Glycopyrrolate (Glycopyrrolate 0.2 Mg/Ml Vial) 0.4 mg IV Q4H PRN PRN Reason: Rattling Secretions or Pulm Congestion Stop: 06/29/24 13:51 Haloperidol (Haloperidol Oral Soln 2 Mg/Ml) 0.5 mg PO Q4H PRN PRN Reason: Anxiety/Agitation Stop: 06/29/24 13:51 Lorazepam (Lorazepam 2 Mg/1 Ml Vial) 0.5 mg IV Q4H PRN PRN Reason: Anxiety/Agitation Stop: 06/29/24 13:51 Melatonin (Melatonin 3 Mg Tab) 6 mg PO HS PRN PRN Reason: Sleep Stop: 06/23/24 19:53 Last Admin: 05/25/24 21:37 Dose: 6 mg Metoclopramide HCl (Metoclopramide Hcl 5 Mg Tablet) 5 mg PO ACHS MARIANA Stop: 06/26/24 20:59 Last Admin: 05/30/24 12:25 Dose: 5 mg Mirtazapine (Mirtazapine Tab 15 Mg Tab) 15 mg PO HS MARIANA Stop: 06/20/24 20:59 Last Admin: 05/29/24 20:40 Dose: 15 mg Morphine Sulfate (Morphine Sulfate 10 Mg/0.5 Ml Udp) 5 mg PO Q3H PRN PRN Reason: Pain, dyspnea or tachypnea Stop: 06/13/24 13:51 Ondansetron HCl (Ondansetron 4 Mg Od Tab) 4 mg PO Q6H [facility] Stop: 06/27/24 00:59 Last Admin: 05/30/24 12:25 Dose: 4 mg Ondansetron HCl (Ondansetron Inj 2 Mg/Ml 2 Ml Vial) 4 mg IV Q4H PRN PRN Reason: Nausea &/or Vomiting Stop: 06/29/24 13:51 Oxybutynin Chloride (Oxybutynin Chloride Xl 5 Mg Tabcr) [facility] Stop: 06/14/24 06:29 Last Admin: 05/30/24 05:59 Dose: 5 mg Oxycodone HCl (Oxycodone Hcl Ir 5 Mg Tab (Immediate Release)) 5 mg PO Q4H PRN PRN Reason: Severe Pain (Scale 7, 8, 9,10) Stop: 05/31/24 15:24 Triamcinolone Acetonide (Triamcinolone Acet 0.1% Cr 15 Gm Tube) 1 appln EXT TID PRN PRN Reason: itching Stop: 06/13/24 16:53 Last Admin: 05/29/24 20:52 Dose: 1 appln Vibegron (Vibegron 75 Mg Tab) 75 mg PO DAILY [facility] Stop: 06/14/24 08:59 Last Admin: 05/30/24 09:05 Dose: 75 mg PG Care Time/CCT Total # of Minutes Spent Total Time Spent with Patient: Total time spent is greater than 50% in coordination of care (as documented) at patient's floor/unit and/or counseling patient: Advanced Care Planning 76167 Advanced Care Planning 30 Min [place] [address] SUB INP/OBS CARE 2/35MIN Patient Type Established History Expanded Problem Focused Exam Expanded Problem Focused Medical Decision Making Moderate Complexity Diagnoses Palliative care by specialist Z51.5 Discussion about advance care planning held with family member Z71.0 Need for comfort care Additional Codes Advanced Care Planning - 14235 Advanced Care Planning 30 Min: 16120 Advanced Care Planning 30 Min ([id number])
--- NOTE | 2024-05-30 17:46 | Hospitalist Progress Note ---
Date of Service May 30, 2024 Assessment & Plan (1) Weakness: Plan: 84 y/o man who resented with generalized weakness, poor appetite, and dehydration x few days. Recent hip fracture repair in beginning of April 2024 and was discharged to [facility] at that time. Unstageable but significant acral decubitus ulcer present on admission. #Adult failure to thrive, inadequate oral intake, dysgeusia Since admission he has declined various aspects of care for example, IVs / IV fluids, lab draws, various oral medications at times. Oral intake remained very low he says because food tastes bad. He did not want artificial nutrition. He was COVID positive on admission but no current symptoms, hypernatremia and dehydration were corrected early in stay, finished treatment for UTI and C. diff. TSH and B12 were normal. We also treated with appetite stimulant and mirtazapine for mood and appetite. Clinically he did not improve. He wished to return home and did not want to prolong his life but could not make active decision on his goals of care despite multiple discussions. As of 05/30 he has declined to the point where he is significantly dehydrated, has acute metabolic encephalopathy precipitated by persistent low oral intake and refusal of IV fluids. I agree he lacks decisional capacity at this point and he will continue to decline without aggressive measures that he has consistently refused. Starting today we transitioned to comfort measures, after discussions with his sons. Comfort measures only, appreciate assistance of palliative care team -morphine PRN pain/dyspnea -lorazepam or haloperidol PRN anxiety/agitation -continue mirtazapine and marinol -medications not providing comfort were stopped (2) Clostridioides difficile diarrhea: Plan: Diarrhea, C. difficile gene and toxin both positive - treated with oral vancomycin through 05/29 (refused some doses but did take at least 20 doses) (3) Acute hypernatremia: Plan: Hypernatremic in setting of volume contraction and poor p.o. intake. Treated with IV fluids early in admission and resolved. Refused further IV fluids and likely has recurrent hypernatremia at this time related to dehydration. (4) COVID: Plan: COVID positive on admission. Chest x-ray: No acute findings - Steroids and remdesivir not indicated in the absence of hypoxia and remains on RA, 98% - Stable on room air (5) Acute UTI: Plan: Acute UTI versus chronic colonization with suprapubic catheter. Suspected CAUTI - Urine culture revealed pansensitive Klebsiella pneumoniae. Completed course of cefepime/Augmentin this hospitalization (6) Diabetes mellitus type 2, controlled: Plan: A1c 7.5 BG at goal or normal since admission. Stopped routine BG checks. Admission and Anticipated Discharge Date Admission Date: May 14, 2024 Subjective Gian has continued to refuse IV fluids and has persistently low oral intake He has declined since yesterday with respect to his alertness and mental status. He's not able to have a meaningful conversation with me today and is dehydrated on exam. I asked him about his conversation with palliative care this AM and he said something to the effect of "they say I'm dying / not dying / dying / not dying." He was unable to tell me anything about the various options which were discussed and reiterated at that visit. 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 Physical Exam Physical Exam: PHYSICAL EXAMINATION Last 24h vital signs reviewed, see documentation in flowsheet General: ill appearing and more lethargic HEENT: Normocephalic, atraumatic, pupils round and equal, sclerae anicteric, no conjunctival injection, very dry mucus membranes Lungs: Normal respiratory effort. Clear to auscultation bilaterally. No RRW Heart: Regular rate and rhythm, no murmurs. No JVD Abdomen: Soft, nontender, nondistended. Bowel sounds present. ileostomy present, suprapubic catheter present yellow urine in Marks bag with mucus Extremities: Warm, dry, well-perfused. No extremity edema. Neuro: lethargic and not oriented to situation, forgetful, low verbal output, face symmetric Psych: depressed/withdrawn affect and behavior Results & Data Results & Data Vital Signs (Past 12 Hours) Vital Signs Temp Pulse Resp BP Pulse Ox O2 Del Method 05/30/24 14:55 98.1 F 81 16 125/53 L 99 Room Air 05/30/24 07:50 97.5 F L 75 17 128/81 98 Room Air 05/30/24 07:45 Room Air Laboratory Results none - refused labs and IVs PG Care Time/CCT Total # of Minutes Spent Total Time Spent with Patient: Total time spent is greater than 50% in coordination of care (as documented) at patient's floor/unit and/or counseling patient: Coding Level of Care Code 67073 SUB INP/OBS CARE Diagnoses Weakness R53.1 Clostridioides difficile diarrhea A04.72 Acute hypernatremia E87.0 COVID U07.1 Acute UTI N39.0 Diabetes mellitus type 2, controlled E11.9
[2024-05-31] MEDS: oxyCODONE HCL IR 5 MG TAB (IMMEDIATE RELEASE) PO PRN (15:06)
[2024-05-31 15:31] VITALS: RESP 18
--- NOTE | 2024-05-31 16:05 | Hospitalist Progress Note ---
Date of Service May 31, 2024 Assessment & Plan (1) Weakness: Plan: 84 y/o man who resented with generalized weakness, poor appetite, and dehydration x few days. Recent hip fracture repair in beginning of April 2024 and was discharged to [facility] at that time. Unstageable but significant acral decubitus ulcer present on admission. #Adult failure to thrive, inadequate oral intake, dysgeusia Since admission he has declined various aspects of care for example, IVs / IV fluids, lab draws, various oral medications at times. Oral intake remained very low he says because food tastes bad. He did not want artificial nutrition. He was COVID positive on admission but no current symptoms, hypernatremia and dehydration were corrected early in stay, finished treatment for UTI and C. diff. TSH and B12 were normal. We also treated with appetite stimulant and mirtazapine for mood and appetite. Clinically he did not improve. He wished to return home and did not want to prolong his life but could not make active decision on his goals of care despite multiple discussions. As of 05/30 he has declined to the point where he is significantly dehydrated, has acute metabolic encephalopathy precipitated by persistent low oral intake and refusal of IV fluids. I agree he lacks decisional capacity at this point and he will continue to decline without aggressive measures that he has consistently refused. Starting 05/30 we transitioned to comfort measures, after discussions with his sons. Comfort measures only, appreciate assistance of palliative care team -morphine PRN pain/dyspnea -lorazepam or haloperidol PRN anxiety/agitation -continue mirtazapine and marinol -medications not providing comfort were stopped seemed to be enjoying visit with friend today, more alert and relaxed (2) Clostridioides difficile diarrhea: Plan: Diarrhea, C. difficile gene and toxin both positive - treated with oral vancomycin through 05/29 (refused some doses but did take at least 20 doses) (3) Acute hypernatremia: Plan: Hypernatremic in setting of volume contraction and poor p.o. intake. Treated with IV fluids early in admission and resolved. Refused further IV fluids and likely has recurrent hypernatremia at this time related to dehydration. (4) COVID: Plan: COVID positive on admission. Chest x-ray: No acute findings - Steroids and remdesivir not indicated in the absence of hypoxia and remains on RA, 98% - Stable on room air (5) Acute UTI: Plan: Acute UTI versus chronic colonization with suprapubic catheter. Suspected CAUTI - Urine culture revealed pansensitive Klebsiella pneumoniae. Completed course of cefepime/Augmentin this hospitalization (6) Diabetes mellitus type 2, controlled: Plan: A1c 7.5 BG at goal or normal since admission. Stopped routine BG checks. Admission and Anticipated Discharge Date Admission Date: May 14, 2024 Subjective Gian is a little more alert today and sipping a milkshake, a friend is visiting He asks for pain medicine for some pain in RLQ vs lower ribs Physical Exam Physical Exam: PHYSICAL EXAMINATION Last 24h vital signs reviewed, see documentation in flowsheet General: more awake/alert but remains extremely weak HEENT: moist mucus membranes Lungs: Normal respiratory effort. Clear to auscultation bilaterally. No RRW Heart: Regular rate and rhythm, no murmurs. No JVD Abdomen: Soft, nontender, nondistended. Bowel sounds present. ileostomy present, suprapubic catheter present yellow urine in Marks bag with mucus Extremities: Warm, dry, well-perfused. No extremity edema. Neuro: awake partially oriented to situation, forgetful, low verbal output, face symmetric Psych: normal affect and behavior Results & Data Results & Data Vital Signs (Past 12 Hours) Vital Signs Temp Pulse Resp BP BP Pulse Ox O2 Del Method 05/31/24 15:29 98.4 F 58 L 18 127/79 05/31/24 15:01 97.5 F L 74 17 141/75 H 98 Room Air 05/31/24 07:43 97.7 F 89 16 136/76 98 Room Air 05/31/24 07:40 Room Air PG Care Time/CCT Total # of Minutes Spent Total Time Spent with Patient: Total time spent is greater than 50% in coordination of care (as documented) at patient's floor/unit and/or counseling patient: Coding Level of Care Code 79663 SUB INP/OBS CARE 25MIN Diagnoses Weakness R53.1 Clostridioides difficile diarrhea A04.72 Acute hypernatremia E87.0 COVID U07.1 Acute UTI N39.0 Diabetes mellitus type 2, controlled E11.9
[2024-06-01 15:12] VITALS: BP 124/75; PULSE 60; TEMP 98.1; O2SAT 97
--- NOTE | 2024-06-01 15:55 | Hospitalist Progress Note ---
Date of Service June 01, 2024 Assessment & Plan (1) Weakness: Plan: 84 y/o man who resented with generalized weakness, poor appetite, and dehydration x few days. Recent hip fracture repair in beginning of April 2024 and was discharged to [facility] at that time. Unstageable but significant acral decubitus ulcer present on admission. #Adult failure to thrive, inadequate oral intake, dysgeusia Since admission he has declined various aspects of care for example, IVs / IV fluids, lab draws, various oral medications at times. Oral intake remained very low he says because food tastes bad. He did not want artificial nutrition. He was COVID positive on admission but no current symptoms, hypernatremia and dehydration were corrected early in stay, finished treatment for UTI and C. diff. TSH and B12 were normal. We also treated with appetite stimulant and mirtazapine for mood and appetite. Clinically he did not improve. He wished to return home and did not want to prolong his life but could not make active decision on his goals of care despite multiple discussions. As of 05/30 he has declined to the point where he is significantly dehydrated, has acute metabolic encephalopathy precipitated by persistent low oral intake and refusal of IV fluids. I agree he lacks decisional capacity at this point and he will continue to decline without aggressive measures that he has consistently refused. Starting 05/30 we transitioned to comfort measures, after discussions with his sons. Comfort measures only, appreciate assistance of palliative care team -morphine PRN pain/dyspnea -lorazepam or haloperidol PRN anxiety/agitation -continue mirtazapine and marinol -medications not providing comfort were stopped appears comfortable, more withdrawn and lethargic today planning for discharge to home [facility] Tuesday with hospice, discussed with tiffanie gregg (2) Clostridioides difficile diarrhea: Plan: Diarrhea, C. difficile gene and toxin both positive - treated with oral vancomycin through 05/29 (refused some doses but did take at least 20 doses) (3) Acute hypernatremia: Plan: Hypernatremic in setting of volume contraction and poor p.o. intake. Treated with IV fluids early in admission and resolved. Refused further IV fluids and likely has recurrent hypernatremia at this time related to dehydration. (4) COVID: Plan: COVID positive on admission. Chest x-ray: No acute findings - Steroids and remdesivir not indicated in the absence of hypoxia and remains on RA, 98% - Stable on room air (5) Acute UTI: Plan: Acute UTI versus chronic colonization with suprapubic catheter. Suspected CAUTI - Urine culture revealed pansensitive Klebsiella pneumoniae. Completed course of cefepime/Augmentin this hospitalization (6) Diabetes mellitus type 2, controlled: Plan: A1c 7.5 BG at goal or normal since admission. Stopped routine BG checks. Admission and Anticipated Discharge Date Admission Date: May 14, 2024 Subjective Gian is more withdrawn today, I told him we can get him home tuesday and he thinks that is too long Not having any pain currently Physical Exam Physical Exam: PHYSICAL EXAMINATION Last 24h vital signs reviewed, see documentation in flowsheet General: awake lying in bed more lethargic and withdrawn today HEENT: dry mucus membranes Lungs: Normal respiratory effort. Heart: deferred Abdomen: nondistended Extremities: Warm, dry, well-perfused. No extremity edema. Neuro: awake partially oriented to situation, forgetful, low verbal output, face symmetric Psych: normal affect and behavior Results & Data Results & Data Vital Signs (Past 12 Hours) Vital Signs Temp Pulse Resp BP Pulse Ox O2 Del Method 06/01/24 15:10 98.1 F 60 18 124/75 97 Room Air 06/01/24 07:40 Room Air PG Care Time/CCT Total # of Minutes Spent Total Time Spent with Patient: Total time spent is greater than 50% in coordination of care (as documented) at patient's floor/unit and/or counseling patient: Coding Level of Care Code 09828 SUB INP/OBS CARE 06/16MIN Diagnoses Weakness R53.1 Clostridioides difficile diarrhea A04.72 Acute hypernatremia E87.0 COVID U07.1 Acute UTI N39.0 Diabetes mellitus type 2, controlled E11.9
[2024-06-02] MEDS: MoRPHine SULFATE 10 MG/0.5 ML UDP PO PRN (02:48)
--- NOTE | 2024-06-02 15:09 | Hospitalist Progress Note ---
Date of Service June 02, 2024 Assessment & Plan (1) Weakness: Plan: 84 y/o man who resented with generalized weakness, poor appetite, and dehydration x few days. Recent hip fracture repair in beginning of April 2024 and was discharged to [facility] at that time. Unstageable but significant acral decubitus ulcer present on admission. #Adult failure to thrive, inadequate oral intake, dysgeusia Since admission he has declined various aspects of care for example, IVs / IV fluids, lab draws, various oral medications at times. Oral intake remained very low he says because food tastes bad. He did not want artificial nutrition. He was COVID positive on admission but no current symptoms, hypernatremia and dehydration were corrected early in stay, finished treatment for UTI and C. diff. TSH and B12 were normal. We also treated with appetite stimulant and mirtazapine for mood and appetite. Clinically he did not improve. He wished to return home and did not want to prolong his life but could not make active decision on his goals of care despite multiple discussions. As of 05/30 he has declined to the point where he is significantly dehydrated, has acute metabolic encephalopathy precipitated by persistent low oral intake and refusal of IV fluids. I agree he lacks decisional capacity at this point and he will continue to decline without aggressive measures that he has consistently refused. Starting 05/30 we transitioned to comfort measures, after discussions with his sons. Comfort measures only, appreciate assistance of palliative care team -morphine PRN pain/dyspnea -lorazepam or haloperidol PRN anxiety/agitation -continue mirtazapine and marinol -medications not providing comfort were stopped no changes to the above today planning for discharge to home [facility] Tuesday with hospice (2) Clostridioides difficile diarrhea: Plan: Diarrhea, C. difficile gene and toxin both positive - treated with oral vancomycin through 05/29 (refused some doses but did take at least 20 doses) (3) Acute hypernatremia: Plan: Hypernatremic in setting of volume contraction and poor p.o. intake. Treated with IV fluids early in admission and resolved. Refused further IV fluids and likely has recurrent hypernatremia at this time related to dehydration. (4) COVID: Plan: COVID positive on admission. Chest x-ray: No acute findings - Steroids and remdesivir not indicated in the absence of hypoxia and remains on RA, 98% - Stable on room air (5) Acute UTI: Plan: Acute UTI versus chronic colonization with suprapubic catheter. Suspected CAUTI - Urine culture revealed pansensitive Klebsiella pneumoniae. Completed course of cefepime/Augmentin this hospitalization (6) Diabetes mellitus type 2, controlled: Plan: A1c 7.5 BG at goal or normal since admission. Stopped routine BG checks. Admission and Anticipated Discharge Date Admission Date: May 14, 2024 Subjective Gian wants to take a nap he denies any pain he is not very talkative with me he wants us to unfreeze his milkshake so that he can have it later this afternoon Physical Exam Physical Exam: PHYSICAL EXAMINATION Last 24h vital signs reviewed, see documentation in flowsheet General: lying on side in bed napping but open his eyes when I came in the room HEENT: dry mucus membranes Lungs: Normal respiratory effort. CTAB regular no murmur Abdomen: nondistended Extremities: Warm, dry, well-perfused. No extremity edema. Neuro: awake partially oriented to situation, forgetful, low verbal output, face symmetric - unchanged Psych: withdrawn affect and behavior Results & Data Results & Data Vital Signs (Past 12 Hours) Vital Signs O2 Del Method 06/02/24 09:02 Room Air PG Care Time/CCT Total # of Minutes Spent Total Time Spent with Patient: Total time spent is greater than 50% in coordination of care (as documented) at patient's floor/unit and/or counseling patient: Coding Level of Care Code 24163 SUB INP/OBS CARE 06/16MIN Diagnoses Weakness R53.1 Clostridioides difficile diarrhea A04.72 Acute hypernatremia E87.0 COVID U07.1 Acute UTI N39.0 Diabetes mellitus type 2, controlled E11.9
--- NOTE | 2024-06-03 14:27 | Hospitalist Progress Note ---
Date of Service June 03, 2024 Assessment & Plan (1) Weakness: Plan: 84 y/o man who resented with generalized weakness, poor appetite, and dehydration x few days. Recent hip fracture repair in beginning of April 2024 and was discharged to [facility] at that time. Unstageable but significant acral decubitus ulcer present on admission. #Adult failure to thrive, inadequate oral intake, dysgeusia Since admission he has declined various aspects of care for example, IVs / IV fluids, lab draws, various oral medications at times. Oral intake remained very low he says because food tastes bad. He did not want artificial nutrition. He was COVID positive on admission but no current symptoms, hypernatremia and dehydration were corrected early in stay, finished treatment for UTI and C. diff. TSH and B12 were normal. We also treated with appetite stimulant and mirtazapine for mood and appetite. Clinically he did not improve. He wished to return home and did not want to prolong his life but could not make active decision on his goals of care despite multiple discussions. As of 05/30 he has declined to the point where he is significantly dehydrated, has acute metabolic encephalopathy precipitated by persistent low oral intake and refusal of IV fluids. I agree he lacks decisional capacity at this point and he will continue to decline without aggressive measures that he has consistently refused. Starting 05/30 we transitioned to comfort measures, after discussions with his sons. Comfort measures only, appreciate assistance of palliative care team -morphine PRN pain/dyspnea -lorazepam or haloperidol PRN anxiety/agitation -continue mirtazapine and marinol -medications not providing comfort were stopped same plan of care 06/03, remains comfortable, continues to eat only milkshakes, only rarely needing meds for comfort planning for discharge to home [facility] Tuesday with hospice (2) Clostridioides difficile diarrhea: Plan: Diarrhea, C. difficile gene and toxin both positive - treated with oral vancomycin through 05/29 (refused some doses but did take at least 20 doses) (3) Acute hypernatremia: Plan: Hypernatremic in setting of volume contraction and poor p.o. intake. Treated with IV fluids early in admission and resolved. Refused further IV fluids and likely has recurrent hypernatremia at this time related to dehydration. (4) COVID: Plan: COVID positive on admission. Chest x-ray: No acute findings - Steroids and remdesivir not indicated in the absence of hypoxia and remains on RA, 98% - Stable on room air (5) Acute UTI: Plan: Acute UTI versus chronic colonization with suprapubic catheter. Suspected CAUTI - Urine culture revealed pansensitive Klebsiella pneumoniae. Completed course of cefepime/Augmentin this hospitalization (6) Diabetes mellitus type 2, controlled: Plan: A1c 7.5 BG at goal or normal since admission. Stopped routine BG checks. Admission and Anticipated Discharge Date Admission Date: May 14, 2024 Subjective Sleeping again late morning when I rounded Got update from David RN, Gian has been sleeping a lot, eating only milkshakes, has been comfortable no pain today Physical Exam Physical Exam: PHYSICAL EXAMINATION Last 24h vital signs reviewed, see documentation in flowsheet General: sleeping soundly HEENT: moist mucus membranes Lungs: Normal respiratory effort. CV: deferred Abdomen: nondistended Extremities: Warm. No extremity edema. Neuro: sleeping Psych: sleeping Results & Data Results & Data Vital Signs (Past 12 Hours) Vital Signs O2 Del Method O2 Flow Rate 06/03/24 07:09 Nasal Cannula 2 PG Care Time/CCT Total # of Minutes Spent Total Time Spent with Patient: Total time spent is greater than 50% in coordination of care (as documented) at patient's floor/unit and/or counseling patient: Coding Level of Care Code 15333 SUB INP/OBS CARE 06/16MIN Diagnoses Weakness R53.1 Clostridioides difficile diarrhea A04.72 Acute hypernatremia E87.0 COVID U07.1 Acute UTI N39.0 Diabetes mellitus type 2, controlled E11.9
--- NOTE | 2024-06-03 14:59 | Communication Note ---
Date of Service: June 03, 2024 I called to leave update for his son Ricardo, but no answer today, no voicemail.
--- NOTE | 2024-06-03 16:08 | Discharge Summary ---
Discharge Summary Date of Service June 04, 2024 Principal Dx & Hospital Course #1 = Principal Diagnosis (1) Weakness: 84 y/o man who resented with generalized weakness, poor appetite, and dehydration x few days. Recent hip fracture repair in beginning of April 2024 and was discharged to [facility] at that time. Unstageable but significant sacral decubitus ulcer present on admission, COVID positive without symptoms on admission. This admission he completed treatment for hypernatremia and UTI, subsequently 10 days of oral vancomycin for C. diff. Appetite stimulants and antiemetics were given, yet oral intake did not improve. Gian did not wish to have tube feeding or any aggressive measures. #Adult failure to thrive, inadequate oral intake, dysgeusia Since admission he has declined various aspects of care for example, IVs / IV fluids, lab draws, various oral medications at times. Oral intake remained very low he says because food tastes bad. He did not want artificial nutrition. He was COVID positive on admission but no current symptoms, hypernatremia and dehydration were corrected early in stay, finished treatment for UTI and C. diff. TSH and B12 were normal. We also treated with appetite stimulant and mirtazapine for mood and appetite. Clinically he did not improve. He wished to return home and did not want to prolong his life but could not make active decision on his goals of care despite multiple discussions. As of 05/30 he has declined to the point where he was significantly dehydrated, had acute metabolic encephalopathy precipitated by persistent low oral intake and refusal of IV fluids. He lacked decisional capacity at that point and would continue to decline without aggressive measures that he had consistently refused. Starting 05/30 we transitioned to comfort measures, after discussions with his sons. Comfort measures only, appreciate assistance of palliative care team -morphine PRN pain/dyspnea - using infrequently -lorazepam or haloperidol PRN anxiety/agitation -continue mirtazapine and marinol -medications not providing comfort were stopped last few days has been sleeping a lot, confused, and only eating milkshakes discharge to [facility] with hospice (2) Clostridioides difficile diarrhea: Diarrhea, C. difficile gene and toxin both positive - treated with oral vancomycin through 05/29 (refused some doses but did take at least 20 doses) (3) Acute hypernatremia: Hypernatremic in setting of volume contraction and poor p.o. intake. Treated with IV fluids early in admission and resolved. Refused further IV fluids and likely has recurrent hypernatremia at this time related to dehydration. (4) COVID: COVID positive on admission. Chest x-ray: No acute findings - Steroids and remdesivir not indicated in the absence of hypoxia and remains on RA, 98% - Stable on room air (5) Acute UTI: Acute UTI versus chronic colonization with suprapubic catheter. Suspected CAUTI - Urine culture revealed pansensitive Klebsiella pneumoniae. Completed course of cefepime/Augmentin this hospitalization (6) Diabetes mellitus type 2, controlled: A1c 7.5 BG at goal or normal since admission. Stopped routine BG checks. Admission HPI Per Admitting Provider Gian is an 84-year-old male with a past medical history of HFrEF, CVA, hyperlipidemia, hypertension, obstructive uropathy, syncope, rectal cancer, closed right hip fracture with discharge 04/29/[address] Falk and with course complicated by acute on chronic anemia of chronic disease for which patient was transfused 1 unit during that admission who presents with weakness and failure to thrive. Patient presents to the ER with dehydration, generalized weakness, fatigue suspected to be due to COVID. He is not hypoxic. He is not tachycardic. Does not have leukocytosis. On ER evaluation he does have an CLAYTON with creatinine 3.02 with baseline approximately 2.32.5. History of ambulate at home and while he is not hypoxic is recommended for admission and placement. Gian seen at the bedside. He reports frustration with his nose and is feels tired and has not been eating. He reports he has not been very hungry in the last few days, additionally notes that when he was in the hospital they bring him a menu and ask him what he wants to eat 3 times a day however when he has been out of the hospital they have not done this and he has also had very little interest in the food that they do have available. Expresses that he would like a milkshake if possible and is interested in eating. He denies shortness of breath, cough, lightheadedness, dizziness, fever, chills at the bedside. No chest pain or chest pressure. Endorses feeling very tired and demoralized from his hospital stays in his illness but declines behavioral health/therapy consultation and notes that he has a therapist that he already talks to and does not have SI/HI. He does not have any additional questions or concerns at bedside. Denies dysuria but has been peeing less. Medical History: Reviewed Medications: Reviewed Surgical History: Reviewed Family history: Reviewed Allergies: Reviewed Social History: Reviewed Code Status: DNR/DNI Discharge Exam PHYSICAL EXAMINATION Last 24h vital signs reviewed, see documentation in flowsheet General: sleeping, aroused to voice HEENT: dry mucus membranes Lungs: Normal respiratory effort. CTAB CV: reg no mrg Abdomen: s/nt/nondistended. ileostomy, SP catheter Extremities: Warm. No extremity edema. Neuro: lethargic, confused, arouses to voice, asks for water Psych: no agitation Discharge Plan Discharge Items Patient Disposition: Personal Long-Term Reason For Visit: UTI, HYPERNATREMIA, PTT, COVID Discharge Diagnosis: UTI, C. diff, COVID, failure to thrive Activity: Resume your previous activity Weightbearing: Full weightbearing Non-emergency contact: Primary Care Provider Call non-emergency contact if: you have any medication questions and your symptoms worsen Follow-up/Referrals: Bisi Rhodes [Primary Care Provider] - Diet: Regular Addtl Attending Provider Instructions: Antibiotics completed for UTI and 10 days oral vancomycin completed for C. diff. Home hospice / Comfort measures only Will eat milk shakes and not much else Routine care of ileostomy and suprapubic catheter Pending Studies at Discharge: No Stand-Alone Forms: My [employer], Smoking Cessation Skilled Items Patient informed of condition?: Yes DNR: Yes Discharge Level of Care: Other Communicable Disease: No Discharge Prognosis: Stable Lines: None Urinary Catheter: Yes Medications and DC Order Prescriptions: New acetaminophen 325 mg Tablet 650 mg PO Q4H PRN (Reason: fever or pain) Qty: 30 0RF haloperidol lactate 2 mg/mL Concentrate 0.5 mg PO Q4H PRN (Reason: nausea, agitation) Qty: 15 0RF morphine concentrate 100 mg/5 mL (20 mg/mL) Solution 5 mg PO Q3H PRN (Reason: pain or dyspnea) Qty: 15 0RF mirtazapine 15 mg Tablet 15 mg PO HS Qty: 30 0RF atropine 1 % Drops 4 drp sublingual Q1H PRN (Reason: secretions) Qty: 2 0RF melatonin 3 mg Tablet 6 mg PO HS PRN (Reason: sleep) Qty: 30 0RF dronabinol 2.5 mg Capsule 2.5 mg PO BID Qty: 60 0RF Continued ondansetron HCl 4 mg tablet 4 mg PO Q8H PRN (Reason: NAUSEA/VOMITING) trospium 60 mg capsule,extended release 24hr 60 mg PO DAILYBB Gemtesa 75 mg Tablet 75 mg PO DAILY Discontinued Eliquis 2.5 mg tablet 2.5 mg PO BID Qty: 180 3RF Hold Instructions: Resume on 10/17/23. fosfomycin tromethamine 3 gram packet 1 packet PO Q OTHER DAY Qty: 3 0RF cholecalciferol (vitamin D3) [Vitamin D3] 25 mcg (1,000 unit) tablet 2,000 unit PO DAILY Qty: 180 0RF docusate sodium [Colace] 100 mg capsule 100 mg PO BID ferrous sulfate 325 mg (65 mg iron) Tablet 325 mg PO QAM rosuvastatin 10 mg tablet 10 mg PO HS cyanocobalamin (vitamin B-12) [Vitamin B-12] 1,000 mcg tablet 1,000 mcg PO DAILY Januvia 50 mg tablet 50 mg PO DAILY insulin glargine [Basaglar KwikPen U-100 Insulin] 100 unit/mL (3 mL) insulin pen 5 unit SUBCUT PM triamcinolone acetonide 0.1 % Cream 1 applic EXT TID PRN (Reason: itching) Qty: 30 0RF mupirocin 2 % Ointment 1 applic EXT TID Qty: 30 0RF quetiapine 25 mg tablet 25 mg PO DAILY Rx Instructions: 25 mg po daily. Filled 05/10 30 day supply nitrofurantoin monohyd/m-cryst 100 mg capsule 100 mg PO UD Rx Instructions: 100 mg po BID. filled 05/11 10 day supply amlodipine 2.5 mg tablet 2.5 mg PO DAILY omeprazole 20 mg capsule,delayed release(DR/EC) 20 mg PO DAILY insulin aspart U-100 [Novolog U-100 Insulin aspart] 100 unit/mL Solution 1 sliding scale dose SC ACHS Qty: 10 0RF Rx Instructions: please use loose sliding scale goal 90-150, correction 25 Discharge Orders: Discharge Order (Routine); Ordered 06/04/24 Ordered By: Melissa White Admission Data Admit Date/Time: 05/14/24 12:57 Attending Provider: Melissa White Admit Provider: Arash Tucker Primary Care Provider: Bisi Rhodes Other Providers: Arash Tucker; Linda Gill; Erica Hernandez; [place],[facility]; [facility] Other Interventions: Discharge Summary Assessment (RN) Last Done: 06/04/24 10:51 Hospital Stay Data Consultations 05/14/24 12:11 ED Decision to Admit Stat 05/18/24 11:08 Consult Palliative Care Routine Pending Results Patient Have Any Pending Studies at Discharge: No Discharge Instructions Given to Patient (Per Discharging Provider) Antibiotics completed for UTI and 10 days oral vancomycin completed for C. diff. Home hospice / Comfort measures only Will eat milk shakes and not much else Routine care of ileostomy and suprapubic catheter Total Time Total Time Spent Total Time Spent (In Minutes): I personally spent: 40 minutes today on clinical care activities including: reviewing chart notes and vital signs discussion with home health aide caregiver examining and counseling the patient writing orders writing prescriptions, discharge instructions documentation Coding Level of Care Code 81273 INP/OBS DISCH >30 MIN Diagnoses Weakness R53.1 Clostridioides difficile diarrhea A04.72 Acute hypernatremia E87.0 COVID U07.1 Acute UTI N39.0 Diabetes mellitus type 2, controlled E11.9
== END 2024-06-04 12:57 | disposition home or self-care (01) | DRG 698 ==
LOC: ED 09:30 → SUATTDRO 12:57 → 3W 12:57